=== PATIENT | male | born 1980 | race Caucasian/White ===

== ENCOUNTER 2018-03-11 16:03 | Emergency (ER) | payer SELFPAY ==
[2018-03-11 16:05] VITALS: BP 143/82; PULSE 89; RESP 27; TEMP 36.5; O2SAT 96; BMI 33.5
--- NOTE | 2018-03-11 16:14 | EKG12_ITS ---
Test Reason : HYPERGLYCEMIA Blood Pressure : / mmHG Vent. Rate : 085 BPM Atrial Rate : 085 BPM P-R Int : 178 ms QRS Dur : 082 ms QT Int : 340 ms P-R-T Axes : 033 011 034 degrees QTc Int : 404 ms Normal sinus rhythm Normal ECG Confirmed by MALINI RAMIREZ, RODNEY ([id number]), offline editor [place] MENENDEZ ([id number]) on 03/13/2018 1:17:15 PM Referred By: JOSE C Confirmed By:RODNEY NAYAK MD
[2018-03-11 16:15] LABS: Bedside Glucose 224 mg/dL (70-110)
[2018-03-11] MEDS: 0.9% Normal Saline 1,000 ML 1000 ML IV ×2 (16:21)
[2018-03-11 16:51] LABS: Absolute Lymphocyte Count 3.21 X10^3/ul (0.83-4.51); Absolute Neutrophil Count 4.1 X10^3/uL (2.0-7.7); Basophil# 0.05 X10^3/uL; Basophil% 0.6 % (0-1); Eosinophil# 0.13 X10^3/uL; Eosinophils% 1.6 % (0-5); Hematocrit 41.6 % (40-54); Lymphocyte # 3.21 X10^3/ul (4.0); Lymphocyte % 38.4 % (19-41); Mean Corp Hgb Conc 36.1 g/gl (32-36); Mean Corpuscular Hgb 30.5 pg (27.0-32.0); Mean Corpuscular Volume 84.6 fL (80-94); Mean Platelet Vol. 10.9 fl (6.2-12.0); Monocyte# 0.88 X10^3/uL; Monocyte% 10.5 % (0-10); Neutrophil # 4.09 X10^3/uL (2.7-7.7); Neutrophil % 48.8 % (47-70); POSITIVE COUNT NO; POSITIVE DIFFERENTIAL NO; POSITIVE MORPHOLOGY NO; Platelet Count 157 K/mm3 (150-450); Red Blood Count 4.92 M/mm3 (4.6-6.2); White Blood Count 8.4 K/mm3 (4.4-11.0)
[2018-03-11 16:56] LABS: AST(SGOT) 12 U/L (15-37); Alanine Aminotransfer ALT/SGPT 36 U/L (16-61); Albumin, Serum 3.6 g/dL (3.2-5.0); Alkaline Phosphatase 111 U/L (45-117); Anion Gap 9 (5-15); BUN 17 mg/dL (7-18); BUN/Creat Ratio 14.5 RATIO (10-20); Calcium,Total 8.4 mg/dL (8.5-10.1); Chloride 104 mmol/L (98-107); Creatinine, Serum 1.17 mg/dL (0.70-1.30); EST Glomerular Filtration Rate 74 mL/min (>60); Est Glom Filt Rate - Afr Amer 90 mL/min (>60); Estimated Creatinine Clearance 106.13 ml/min; Globulin 3.5 g/dL (2.2-4.2); Glucose 215 mg/dL (74-106); Protein, Total 7.1 g/dL (6.4-8.2); Sodium Level 137 mmol/L (136-145)
[2018-03-11 17:39] LABS: Bacteria 0 SEEN /hpf (None Seen); Mucous, Urine 0 SEEN /hpf (<or=2+); Red Blood Cells-Urine 0 SEEN /hpf (0-5); Squamous Epithelial Cells - UA 0 SEEN /hpf (0-5); White Blood Cells 0 SEEN /hpf (0-5)
[2018-03-11 17:43] LABS: Color, Urine Yellow (Yellow); Glucose, Dipstick 1000 mg/dl (Normal); Ketone-Dipstick 15 mg/dl (Negative); Leukocyte Esterase-Dipstick Negative /ul (Negative); Nitrite-Dipstick Negative (Negative); Occult Blood-Urine Negative /ul (Negative); Protein-Dipstick 15 mg/dl (Negative); Specific Gravity, Urine 1.025 (1.002-1.030); Urine Bilirubin Dipstick Negative (Negative); Urine Clarity Clear (Clear); Urine Urobilinogen Normal (Normal)
--- NOTE | 2018-03-11 18:13 | ED.DCSUM_ITS ---
- ER Visit Summary Date of Service: 03/11/18 Chief Complaint: High blood sugar History of Present Illness: The patient is a 37 M with presumed high blood sugar. The patient feels tired, weak, has a dry mouth, and has been sweating today. He had similar symptoms in the past with high blood sugar. He is taking metformin but he is not compliant with his insulin therapy. He has a history of type 2 diabetes. He has never been hospitalized for diabetes complications. Denies any other specific symptoms like fever, chest pain, shortness of breath, abdominal pain, nausea, vomiting, diarrhea, or urinary symptoms. Physical Examination: Afebrile and vital signs unremarkable except for heart rate of 27. The patient is sitting upright and appears in no acute distress. Alert and oriented. Calm and comfortable. Skin appears normal in color. No diaphoresis. No pallor. Heart regular rate and rhythm. Lungs clear bilaterally. Abdomen soft and nontender. Test Results: EKG shows sinus rhythm at a rate of 85. No sign of acute ischemia or infarction pattern. CBC normal. Glucose 215. Small ketones. Troponin normal. Hepatic panel and urinalysis unremarkable. Emergency Department Course and Treatment: Patient treated with IV fluids. I believe he is appropriate for outpatient follow-up. Stay hydrated. Use insulin and diabetes medications as directed. Return for any new or worsening issues. Treatment Plan: As above Disposition: Discharged Impression: 1. Hyperglycemia This note was generated with [employer] dictation software. It may contain incorrect words, spelling, and punctuation that were not noted in review of the chart prior to signing ED Disposition - Plan for ED Patient: Chief Complaint: Hyperglycemia Referrals: Chio Brown MD [Primary Care Provider] -
--- NOTE | 2018-03-11 18:13 | ED.DEP ---
ED Disposition - Plan for ED Patient: Chief Complaint: Hyperglycemia Instructions: ED Hyperglycemia Diabetic Referrals: Chio Brown MD [Primary Care Provider] -
[2018-03-11 18:34] VITALS: BP 118/78; PULSE 82; RESP 16; O2SAT 95
== END 2018-03-11 18:44 | disposition home or self-care (01) ==
PROVIDERS: Emergency Provider Emergency Medicine; Family Provider Internal Medicine; PCP Internal Medicine
DX: E11.65 Type 2 diabetes mellitus with hyperglycemia (principal); I10 Essential (primary) hypertension; Z79.4 Long term (current) use of insulin; Z79.899 Other long term (current) drug therapy; Z91.14 Patient's other noncompliance with medication regimen; Z72.0 Tobacco use
CPT/HCPCS: 80053; 81001; 82009; 82962; 84484; 85025; 93005; 96360; 99282; J7030

== ENCOUNTER 2018-05-20 12:30 | Inpatient (IN) | payer SELFPAY ==
[2018-05-20] VITALS (12 sets, daily range): BP systolic 140–212; BP diastolic 85–122; PULSE 86–109; RESP 14–26; TEMP 36.4–37; O2SAT 92–97; BMI 33.5; BMI 33.7
--- NOTE | 2018-05-20 13:05 | EKG12_ITS ---
Test Reason : SOB Blood Pressure : / mmHG Vent. Rate : 098 BPM Atrial Rate : 098 BPM P-R Int : 216 ms QRS Dur : 086 ms QT Int : 320 ms P-R-T Axes : 034 013 022 degrees QTc Int : 408 ms Sinus rhythm with 1st degree A-V block Nonspecific T wave abnormality Abnormal ECG Confirmed by MALINI RAMIREZ, RODNEY ([id number]), online editor TONO DARDEN ([id number]) on 05/23/2018 2:26:12 PM Referred By: William Frankel Confirmed By:RODNEY NAYAK MD
[2018-05-20] MEDS: Albuterol 2.5 MG/3 ML VIAL.NEB. INHALATION ×2 (13:28→13:57)
[2018-05-20] MEDS: Ipratropium/Albuterol Sulfate 3 ML AMPUL.NEB INHALATION (13:28)
--- NOTE | 2018-05-20 13:48 | RAD_ITS ---
STUDY: X-RAY CHEST REASON FOR EXAM: Male, 37 years old. Cough and wheezing. TECHNIQUE: PA and lateral views of the chest. COMPARISON: Comparison is made with prior study dated June 30, 2017. FINDINGS: EKG electrodes are seen. Mild degree of the increased linear markings at the lung bases most likely secondary to poor inspiratory effort. There is no demonstrated pleural abnormality. Normal size heart. Normal mediastinum and matthew. Normal visualized pulmonary arteries. Normal visualized aortic arch and descending thoracic aorta. There are diffuse degenerative changes of the visualized thoracic spine. Normal visualized ribs, clavicles, and shoulders. There is no demonstrated abnormality of the visualized soft tissue structures of the upper abdomen. RAD/Chest PA and Lateral IMPRESSION: Mild degree of increased markings at the lung bases most likely secondary to limited inspiration. Electronically Signed: Wilfrid Walden MD at 14:31 EST Tel [phone], Service support ,
[2018-05-20 13:56] LABS: Absolute Lymphocyte Count 2.91 X10^3/ul (0.83-4.51); Absolute Neutrophil Count 8.3 X10^3/uL (2.0-7.7); Basophil# 0.06 X10^3/uL; Basophil% 0.5 % (0-1); Eosinophil# 0.13 X10^3/uL; Hematocrit 43.8 % (40-54); Hemoglobin 15.5 g/dl (13.0-16.5); Lymphocyte # 2.91 X10^3/ul (4.0); Lymphocyte % 22.5 % (19-41); Mean Corp Hgb Conc 35.4 g/gl (32-36); Mean Corpuscular Hgb 29.8 pg (27.0-32.0); Mean Corpuscular Volume 84.1 fL (80-94); Mean Platelet Vol. 10.6 fl (6.2-12.0); Monocyte# 1.45 X10^3/uL; Monocyte% 11.2 % (0-10); Neutrophil # 8.31 X10^3/uL (2.7-7.7); Neutrophil % 64.1 % (47-70); Platelet Count 227 K/mm3 (150-450); RBC Distribution Width CV 11.9 % (11.6-14.6); RBC Distribution Width SD 36.5 fl (35.1-43.9); Red Blood Count 5.21 M/mm3 (4.6-6.2)
[2018-05-20 13:57] LABS: POSITIVE COUNT NO; POSITIVE DIFFERENTIAL NO; POSITIVE MORPHOLOGY NO
[2018-05-20 13:58] LABS: Anion Gap 12 (5-15); BUN 21 mg/dL (7-18); BUN/Creat Ratio 14.8 RATIO (10-20); Chloride 88 mmol/L (98-107); Creatinine, Serum 1.42 mg/dL (0.70-1.30); EST Glomerular Filtration Rate 59 mL/min (>60); Est Glom Filt Rate - Afr Amer 72 mL/min (>60); Estimated Creatinine Clearance 87.45 ml/min; Glucose 762 mg/dL (74-106); Potassium 4.3 mmol/L (3.5-5.1); Sodium Level 123 mmol/L (136-145)
--- NOTE | 2018-05-20 14:00 | ED.RN ---
GLUCOSE [id number] CALL[address] THE LAB. DR COOPER AWARE
[2018-05-20] MEDS: 0.9% Normal Saline 1,000 ML 1000 ML IV ×2 (14:40→16:03)
--- NOTE | 2018-05-20 16:03 | ED.DCSUM_ITS ---
- ER Visit Summary Date of Service: 05/20/18 Chief Complaint: Shortness of breath, cough, change in voice and elevated blood sugars History of Present Illness: The patient is a 37 M who presents because of URI symptoms that started 2 weeks ago. He was seen at urgent care and placed on Augmentin and prednisone. He states since he was placed on prednisone he had trouble controlling his blood sugar. Furthermore he reports polyuria, polydipsia, polyphagia and frequency. He does report thirst and orthostatic symptoms. He states the medication he was prescribed has had no effect. He is a smoker. His cough is nonproductive. He does complain of shortness of breath. He does complain of wheezing and he does not give history of asthma. He denies fever, chills or night sweats. He does complain of blurred vision. He does report palpitations otherwise cardiovascular negative. GI is positive for n ausea and vomiting for the past several days. is positive for frequency otherwise negative. He also complains of generalized weakness. Please read written note. Physical Examination: Vital signs noted and blood pressure is elevated at 212/122. Heart rate is 100. Head is atraumatic normocephalic. Pupils are equal round reactive. Extraocular muscles are intact. Funduscopic exam reveals no papilledema. TMs are pearly white with landmarks noted. Nares patent with no drainage. Posterior pharynx without erythema or exudate. Uvula is midline. There is no dysphonia or dysphasia. Trachea is midline. There is no stridor with auscultation of the neck. Heart is regular without murmur, gallop or rub. S1 and S2 are normal. Lungs are clear to auscultation with good movement of air bilaterally. Abdomen is soft and nontender. There is no guarding or peritoneal findings. There is no palpable pulsatile mass. There is no abdominal bruit. Mann sign is negative. Negative Rovsing sign. There is no evidence of inguinal or umbilical hernia. There is no asymmetry, swelling, discoloration, leg vein distention, palpable cords or tenderness along the distribution of the deep venous system. Patient is alert and oriented ?3. Motor is 5 over 5. Sensory is intact. DTRs are symmetric with no clonus or Babinski sign. Cranial 2 through 12 are intact. Cerebellar testing is normal. Test Results: EKG sinus rhythm rate of 98 with a first-degree AV block nonspecific ST-T wave changes. Two-view chest x-ray interpreted by me as negative. White count is 13,000, which may be secondary to the prednisone he is presently on. Electro panels marked for sodium 123 and chloride of 88 suspect this is pseudohyponatremia secondary to his hyperglycemia in part. Patient received 2 L of normal saline. He was placed on insulin drip after the fluid bolus. Patient blood pressure was not treated since most recent is 164/93. Emergency Department Course and Treatment: Evaluation for respiratory symptoms, electronic panel to evaluate blood sugar renal function. IV fluids for hyperglycemia and insulin drip. Treatment Plan: ICU Disposition: Admit ICU on insulin drip Impression: 1. Hyperglycemia with out ketosis or anion gap 2. Hyponatremia secondary to hyperglycemia, pseudohyponatremia 3. Leukocytosis secondary to prednisone 4. Viral upper restaurant infection with laryngitis 5. Hypertension without evidence of endorgan injury This note was generated with [employer] dictation software. It may contain incorrect words, spelling, and punctuation that were not noted in review of the chart prior to signing ED Disposition - Plan for ED Patient: Chief Complaint: Shortness of Breath Referrals: Chio Brown MD [Primary Care Provider] -
[2018-05-20 16:16] LABS: Bedside Glucose > 500 mg/dL (70-110)
[2018-05-20 16:35] LABS: Bedside Glucose > 500 mg/dL (70-110)
[2018-05-20 17:06] LABS: Bedside Glucose 458 mg/dL (70-110)
--- NOTE | 2018-05-20 17:36 | PCM.HP.STD ---
Problem List (1) Hyperosmolar non-ketotic state in patient with type 2 diabetes mellitus Status: Acute (2) Acute laryngitis Status: Acute (3) Acute epididymo-orchitis Status: Acute (4) GERD (gastroesophageal reflux disease) Status: Acute (5) Benign hypertension Status: Chronic (6) Chronic back pain Status: Chronic (7) Type II diabetes mellitus Status: Chronic (8) Morbid obesity Status: Chronic (9) Gall stone pancreatitis Status: Resolved History of Present Illness Date of Admission: 05/20/18 Chief Complaint: Hyperglycemia after being on prednisone given for laryngitis The patient is a 37 year old M with history of type 2 diabetes mellitus has acute laryngitis, hoarseness of voice, symptoms for 2 weeks but went to [facility] on last Saturday and was prescribed Augmentin and Medrol Dosepak but did not take Augmentin. Patient went to see PCP on last Saturday and then started taking most probably Medrol Dosepak from Saturday. Patient has symptoms of polyuria, polydipsia and polyphagia started feeling very thirsty and dry. Patient was also prescribed Lantus 15 units daily and sliding scale NovoLog but he could not take it because of cost. He also complained of left-sided testicular pain. Patient has mild fever with chills. [] In ED, there was no fever noted but patient was tachypneic. No hypoxia. BMP shows sodium 123, chloride 88, BUN 21, creatinine 1.42. Glucose 762. Accu-Cheks 458. Patient denies burning micturition but has increased frequency probably secondary to hyperosmolar hyperglycemia Past Medical History Past Medical History (Chronic Problems): Chronic Problems Benign hypertension (Chronic) Chronic back pain (Chronic) Type II diabetes mellitus (Chronic) Morbid obesity (Chronic) Allergies hydrocodone bitartrate [From Vicodin] Adverse Reaction (Verified 05/20/18 12:30) Nausea Home Medications: Ambulatory Orders Medication Instructions Recorded Citalopram [Celexa] 40 mg PO DAILY 03/11/18 Divalproex Sodium 2,000 mg PO QHS 03/11/18 Metformin HCl [Glucophage Xr] 500 mg PO DAILY 03/11/18 Olanzapine [Zyprexa] 10 mg PO DAILY 03/11/18 Prazosin HCl 2 mg PO DAILY 03/11/18 Lisinopril [Zestril] 10 mg PO DAILY 05/20/18 Surgical History: no surgical history Psychiatric History: No pertinent psych hx Smoking Status: Current every day smoker Tobacco Use: Cigarettes - *Family History Paternal History Items: Diabetes, Heart Disease Maternal History Items: Heart Disease Review of Systems Constitutional: Reports: Chills, Fever HEENT: Denies: Head Aches, Sinus Congestion, Sinus Drainage Cardiovascular: Denies: Chest Pain, Palpitations Respiratory: Reports: Cough, - - Hoarseness of voice. Denies: Shortness of breath at rest, Sputum production Gastrointestinal: Denies: Abdominal Pain, Nausea, Vomiting Genitourinary: Reports: Frequency, - - Testicular pain. Denies: Dysuria Musculoskeletal: Denies: Joint Pain, Joint Tenderness Skin: Denies: Rash, Wounds Neurological: Denies: Numbness, Tingling, Focal weakness Psychiatric: Denies: Anxiety, Depression, Homicidal Ideations, Suicidal Ideations Hematologic/ Lymphatic: Denies: Easy Bruising, Easy Bleeding VTE Information - Inpt Only VTE Present on Admission: No VTE Mechan Device Prophylaxis: SCD's VTE Pharm Prophylaxis ordered?: No Reason prophylaxis not ordered:: Procedure Not Indicated Patient Problems: Active and Suspected Problems Hyperosmolar non-ketotic state in patient with type 2 diabetes mellitus (Acute) Acute laryngitis (Acute) Acute epididymo-orchitis (Acute) - Physical Exam General: Alert, Oriented x3, Cooperative HEENT: Atraumatic, PERRLA, EOMI, Normocephalic Oral: - - No redness or exudate seen in hard palate or soft palate posterior pharyngeal wall. Base of tongue could not be seen. Neck: Supple, No JVD, Negative Carotid Bruits Lungs: Clear to auscultation, Normal air movement, No rhonchi, No wheeze, No rales Cardiovascular: Regular rate, Normal S1, Normal S2, No murmurs Abdomen: Bowel Sounds Present, Soft, Non Tender, Non-Distended, - - Left testes and epididymitis tender. Tenderness on palpation. No malrotation of testis. Extremities: No edema, Capillary Refill Less than 3 Seconds, Edema Skin: No rashes, No breakdown Musculoskeletal: No Tenderness to Palpation of Joints or Extremities Neurological: Cranial nerves II-XII grossly intact Psych/Mental Status: Normal Affect, Appropriate Vital Signs Temp Pulse Resp BP Pulse Ox 97.6 F L 92 18 140/94 H 96 05/20/18 17:12 05/20/18 17:12 05/20/18 17:16 05/20/18 17:12 05/20/18 17:12 Oxygen Delivery Method Room Air Weight: 276 lb 14.4 oz Body Mass Index (BMI) 33.7 Finger Stick Blood Glucose 509 Laboratory Tests Past 24 Hrs 05/20/18 05/20/18 13:30 13:30 WBC 13.0 H RBC 5.21 Hgb 15.5 Hct 43.8 MCV 84.1 MCH 29.8 MCHC 35.4 RDW 11.9 RDW Differential 36.5 Plt Count 227 MPV 10.6 Immature Gran % (Auto) 0.700 Neut % (Auto) 64.1 Lymph % (Auto) 22.5 [place] % (Auto) 11.2 H Eos % (Auto) 1.0 Baso % (Auto) 0.5 Absolute Neuts (auto) 8.3 H Absolute Lymphs (auto) 2.91 Total Counted Not Reportable Sodium 123 L Potassium 4.3 Chloride 88 L Carbon Dioxide 23.0 Anion Gap 12 BUN 21 H Creatinine 1.42 H Estim Creat Clear Calc 87.45 Est GFR (MDRD) Af Amer 72 Est GFR (MDRD) Non-Af 59 L BUN/Creatinine Ratio 14.8 Glucose 762 H* Calcium 9.0 POC Glucose 05/20/18 05/20/18 05/20/18 17:01 16:31 16:05 POC Glucose 458 H* > 500 H* > 500 H* Assessment/Plan All Active Problems Hyperosmolar non-ketotic state in patient with type 2 diabetes mellitus (Acute) Acute laryngitis (Acute) Acute epididymo-orchitis (Acute) GERD (gastroesophageal reflux disease) (Acute) Gall stone pancreatitis (Resolved) The patient is a 37 year old M with history of type 2 diabetes mellitus has acute laryngitis, hoarseness of voice, symptoms for 2 weeks but went to [facility] on last Saturday and was prescribed Augmentin and Medrol Dosepak but did not take Augmentin. Patient went to see PCP on last Saturday and then started taking most probably Medrol Dosepak from Saturday. Patient has symptoms of polyuria, polydipsia and polyphagia started feeling very thirsty and dry. Patient was also prescribed Lantus 15 units daily and sliding scale NovoLog but he could not take it because of cost. He also complained of left-sided testicular pain. Patient has mild fever with chills. [] In ED, there was no fever noted but patient was tachypneic. No hypoxia. BMP shows sodium 123, chloride 88, BUN 21, creatinine 1.42. Glucose 762. Accu-Cheks 458. Patient denies burning micturition but has increased frequency probably secondary to hyperosmolar hyperglycemia. 1. Hyperosmolar with type 2 diabetes mellitus secondary to Medrol Dosepak: The patient is being admitted on stepdown unit mainly due to insulin drip. Needs IV fluid normal saline as per protocol. Patient had 3 L of IV fluid normal saline. Continue insulin drip and hourly Accu-Cheks. Once Accu-Chek is between 100-200 mg/dL, Lantus 10 units subcutaneous and overlap insulin drip for about 3 hours then discontinue it. After that Accu-Chek before meals and at bedtime and cover with NovoLog sliding scale and Lantus 10 units twice daily 2. Diabetes mellitus type 2: She did have 3. Infectious condition: Acute laryngitis, left epididymoorchitis, acute: UA and urine culture ordered. Started on IV ceftriaxone. Azithromycin 250 mg 1 dose. Hold Celexa for today but may resume for tomorrow. QTc interval is 408 ms. 4. Acute kidney injury mainly due to dehydration/prerenal etiology: IV fluid normal saline. Monitor kidney function and BMP. Hold lisinopril. 5. Other chronic comorbid is include GERD and hypertension: Blood pressure is controlled. Continue home medications. DVT prophylaxis: Bilateral SCDs. Low risk. This note was generated with [employer] dictation software. Every effort was made to ensure accuracy, however computerized telegraphic instrument supervisor mistakes may persist. Code Visit Inpatient E&M: 64693 Init Hosp L3
--- NOTE | 2018-05-20 17:57 | HP.PCM_ITS ---
Problem List (1) Hyperosmolar non-ketotic state in patient with type 2 diabetes mellitus Status: Acute (2) Acute laryngitis Status: Acute (3) Acute epididymo-orchitis Status: Acute (4) GERD (gastroesophageal reflux disease) Status: Acute (5) Benign hypertension Status: Chronic (6) Chronic back pain Status: Chronic (7) Type II diabetes mellitus Status: Chronic (8) Morbid obesity Status: Chronic (9) Gall stone pancreatitis Status: Resolved History of Present Illness Date of Admission: 05/20/18 Chief Complaint: Hyperglycemia after being on prednisone given for laryngitis The patient is a 37 year old M with history of type 2 diabetes mellitus has acute laryngitis, hoarseness of voice, symptoms for 2 weeks but went to [facility] on last Saturday and was prescribed Augmentin and Medrol Dosepak but did not take Augmentin. Patient went to see PCP on last Saturday and then started taking most probably Medrol Dosepak from Saturday. Patient has symptoms of polyuria, polydipsia and polyphagia started feeling very thirsty and dry. Patient was also prescribed Lantus 15 units daily and sliding scale NovoLog but he could not take it because of cost. He also complained of left-sided testicular pain. Patient has mild fever with chills. [] In ED, there was no fever noted but patient was tachypneic. No hypoxia. BMP shows sodium 123, chloride 88, BUN 21, creatinine 1.42. Glucose 762. Accu- Cheks 458. Patient denies burning micturition but has increased frequency probably secondary to hyperosmolar hyperglycemia Past Medical History Past Medical History (Chronic Problems): Chronic Problems Benign hypertension (Chronic) Chronic back pain (Chronic) Type II diabetes mellitus (Chronic) Morbid obesity (Chronic) Allergies hydrocodone bitartrate [From Vicodin] Adverse Reaction (Verified 05/20/18 12:30) Nausea Home Medications: Ambulatory Orders Medication Instructions Recorded Citalopram [Celexa] 40 mg PO DAILY 03/11/18 Divalproex Sodium 2,000 mg PO QHS 03/11/18 Metformin HCl [Glucophage Xr] 500 mg PO DAILY 03/11/18 Olanzapine [Zyprexa] 10 mg PO DAILY 03/11/18 Prazosin HCl 2 mg PO DAILY 03/11/18 Lisinopril [Zestril] 10 mg PO DAILY 05/20/18 Surgical History: no surgical history Psychiatric History: No pertinent psych hx Smoking Status: Current every day smoker Tobacco Use: Cigarettes - *Family History Paternal History Items: Diabetes, Heart Disease Maternal History Items: Heart Disease Review of Systems Constitutional: Reports: Chills, Fever HEENT: Denies: Head Aches, Sinus Congestion, Sinus Drainage Cardiovascular: Denies: Chest Pain, Palpitations Respiratory: Reports: Cough, - - Hoarseness of voice. Denies: Shortness of breath at rest, Sputum production Gastrointestinal: Denies: Abdominal Pain, Nausea, Vomiting Genitourinary: Reports: Frequency, - - Testicular pain. Denies: Dysuria Musculoskeletal: Denies: Joint Pain, Joint Tenderness Skin: Denies: Rash, Wounds Neurological: Denies: Numbness, Tingling, Focal weakness Psychiatric: Denies: Anxiety, Depression, Homicidal Ideations, Suicidal Ideations Hematologic/ Lymphatic: Denies: Easy Bruising, Easy Bleeding VTE Information - Inpt Only VTE Present on Admission: No VTE Mechan Device Prophylaxis: SCD's VTE Pharm Prophylaxis ordered?: No Reason prophylaxis not ordered:: Procedure Not Indicated Patient Problems: Active and Suspected Problems Hyperosmolar non-ketotic state in patient with type 2 diabetes mellitus (Acute) Acute laryngitis (Acute) Acute epididymo-orchitis (Acute) - Physical Exam General: Alert, Oriented x3, Cooperative HEENT: Atraumatic, PERRLA, EOMI, Normocephalic Oral: - - No redness or exudate seen in hard palate or soft palate posterior pharyngeal wall. Base of tongue could not be seen. Neck: Supple, No JVD, Negative Carotid Bruits Lungs: Clear to auscultation, Normal air movement, No rhonchi, No wheeze, No rales Cardiovascular: Regular rate, Normal S1, Normal S2, No murmurs Abdomen: Bowel Sounds Present, Soft, Non Tender, Non-Distended, - - Left testes and epididymitis tender. Tenderness on palpation. No malrotation of testis. Extremities: No edema, Capillary Refill Less than 3 Seconds, Edema Skin: No rashes, No breakdown Musculoskeletal: No Tenderness to Palpation of Joints or Extremities Neurological: Cranial nerves II-XII grossly intact Psych/Mental Status: Normal Affect, Appropriate Vital Signs Temp Pulse Resp BP Pulse Ox 97.6 F L 92 18 140/94 H 96 05/20/18 17:12 05/20/18 17:12 05/20/18 17:16 05/20/18 17:12 05/20/18 17:12 Oxygen Delivery Method Room Air Weight: 276 lb 14.4 oz Body Mass Index (BMI) 33.7 Finger Stick Blood Glucose 509 Laboratory Tests Past 24 Hrs 05/20/18 05/20/18 13:30 13:30 WBC 13.0 H RBC 5.21 Hgb 15.5 Hct 43.8 MCV 84.1 MCH 29.8 MCHC 35.4 RDW 11.9 RDW Differential 36.5 Plt Count 227 MPV 10.6 Immature Gran % (Auto) 0.700 Neut % (Auto) 64.1 Lymph % (Auto) 22.5 [place] % (Auto) 11.2 H Eos % (Auto) 1.0 Baso % (Auto) 0.5 Absolute Neuts (auto) 8.3 H Absolute Lymphs (auto) 2.91 Total Counted Not Reportable Sodium 123 L Potassium 4.3 Chloride 88 L Carbon Dioxide 23.0 Anion Gap 12 BUN 21 H Creatinine 1.42 H Estim Creat Clear Calc 87.45 Est GFR (MDRD) Af Amer 72 Est GFR (MDRD) Non-Af 59 L BUN/Creatinine Ratio 14.8 Glucose 762 H* Calcium 9.0 POC Glucose 05/20/18 05/20/18 05/20/18 17:01 16:31 16:05 POC Glucose 458 H* > 500 H* > 500 H* Assessment/Plan All Active Problems Hyperosmolar non-ketotic state in patient with type 2 diabetes mellitus (Acute) Acute laryngitis (Acute) Acute epididymo-orchitis (Acute) GERD (gastroesophageal reflux disease) (Acute) Gall stone pancreatitis (Resolved) The patient is a 37 year old M with history of type 2 diabetes mellitus has acute laryngitis, hoarseness of voice, symptoms for 2 weeks but went to [facility] on last Saturday and was prescribed Augmentin and Medrol Dosepak but did not take Augmentin. Patient went to see PCP on last Saturday and then started taking most probably Medrol Dosepak from Saturday. Patient has symptoms of polyuria, polydipsia and polyphagia started feeling very thirsty and dry. Patient was also prescribed Lantus 15 units daily and sliding scale NovoLog but he could not take it because of cost. He also complained of left-sided testicular pain. Patient has mild fever with chills. [] In ED, there was no fever noted but patient was tachypneic. No hypoxia. BMP shows sodium 123, chloride 88, BUN 21, creatinine 1.42. Glucose 762. Accu- Cheks 458. Patient denies burning micturition but has increased frequency probably secondary to hyperosmolar hyperglycemia. 1. Hyperosmolar with type 2 diabetes mellitus secondary to Medrol Dosepak: The patient is being admitted on stepdown unit mainly due to insulin drip. Needs IV fluid normal saline as per protocol. Patient had 3 L of IV fluid normal saline . Continue insulin drip and hourly Accu-Cheks. Once Accu-Chek is between 100- 200 mg/dL, Lantus 10 units subcutaneous and overlap insulin drip for about 3 hours then discontinue it. After that Accu-Chek before meals and at bedtime and cover with NovoLog sliding scale and Lantus 10 units twice daily 2. Diabetes mellitus type 2: She did have 3. Infectious condition: Acute laryngitis, left epididymoorchitis, acute: UA and urine culture ordered. Started on IV ceftriaxone. Azithromycin 250 mg 1 dose. Hold Celexa for today but may resume for tomorrow. QTc interval is 408 ms. 4. Acute kidney injury mainly due to dehydration/prerenal etiology: IV fluid normal saline. Monitor kidney function and BMP. Hold lisinopril. 5. Other chronic comorbid is include GERD and hypertension: Blood pressure is controlled. Continue home medications. DVT prophylaxis: Bilateral SCDs. Low risk. This note was generated with [employer] dictation software. Every effort was made to ensure accuracy, however computerized genetic technologist mistakes may persist. Code Visit Inpatient E&M: 06986 Init Hosp L3
[2018-05-20 18:15] LABS: Bedside Glucose 336 mg/dL (70-110)
[2018-05-20] MEDS: 0.9% Normal Saline 1,000 ML 500 ML IV (18:18)
[2018-05-20 19:01] LABS: Bedside Glucose 334 mg/dL (70-110)
[2018-05-20] MEDS: Azithromycin 250 MG Tablet PO (19:50)
[2018-05-20] MEDS: Ceftriaxone 1 GM/50 ML BAG IV (19:59)
[2018-05-20] MEDS: 0.9% Normal Saline 1,000 ML 250 ML IV (20:53)
[2018-05-20 21:06] LABS: Bedside Glucose 322 mg/dL (70-110)
[2018-05-20 21:06] LABS: Bedside Glucose 283 mg/dL (70-110)
[2018-05-20 21:51] LABS: Chlamydia Trachomatis by PCR Negative (Negative); Neisserai gonorrhoeae by PCR Negative (Negative); Probe Check PASS; Sample Adequacy Control PASS; Specimen Processing Control PASS
[2018-05-20] MEDS: Divalproex (ER) 500 MG Tablet 2000 MG PO (21:56)
[2018-05-20 22:10] LABS: Bedside Glucose 177 mg/dL (70-110)
[2018-05-20 22:15] LABS: Anion Gap 7 (5-15); BUN 18 mg/dL (7-18); BUN/Creat Ratio 16.8 RATIO (10-20); Calcium,Total 7.9 mg/dL (8.5-10.1); Chloride 103 mmol/L (98-107); Creatinine, Serum 1.07 mg/dL (0.70-1.30); EST Glomerular Filtration Rate 82 mL/min (>60); Est Glom Filt Rate - Afr Amer 100 mL/min (>60); Estimated Creatinine Clearance 116.05 ml/min; Glucose 209 mg/dL (74-106); Potassium 3.4 mmol/L (3.5-5.1); Sodium Level 139 mmol/L (136-145)
[2018-05-20 22:36] LABS: Bacteria 0 SEEN /hpf (None Seen); Mucous, Urine 0 SEEN /hpf (<or=2+); Red Blood Cells-Urine 0 SEEN /hpf (0-5); Squamous Epithelial Cells - UA 0 SEEN /hpf (0-5); White Blood Cells 0 SEEN /hpf (0-5)
[2018-05-20 22:40] LABS: Color, Urine Yellow (Yellow); Glucose, Dipstick 1000 mg/dl (Normal); Ketone-Dipstick Negative (Negative); Leukocyte Esterase-Dipstick Negative /ul (Negative); Nitrite-Dipstick Negative (Negative); Occult Blood-Urine Negative /ul (Negative); Protein-Dipstick Negative (Negative); Specific Gravity, Urine 1.015 (1.002-1.030); Urine Bilirubin Dipstick Negative (Negative); Urine Clarity Clear (Clear); Urine Urobilinogen Normal (Normal)
[2018-05-21] VITALS (7 sets, daily range): BP systolic 133–156; BP diastolic 86–108; PULSE 72–84; RESP 14–16; TEMP 36.6–37; O2SAT 95–100
[2018-05-21 00:06] LABS: Bedside Glucose 102 mg/dL (70-110)
[2018-05-21 00:06] LABS: Bedside Glucose 188 mg/dL (70-110)
[2018-05-21 02:26] LABS: Bedside Glucose 126 mg/dL (70-110)
[2018-05-21 02:30] LABS: Bedside Glucose 212 mg/dL (70-110)
[2018-05-21 04:41] LABS: Bedside Glucose 231 mg/dL (70-110)
[2018-05-21] MEDS: BENZOCAINE/MENTHOL 1 LOZENGE 2 LOZENGE MUCOUS MEM (05:04)
[2018-05-21] MEDS: Acetaminophen 325 MG Tablet 650 MG PO (05:04)
[2018-05-21 06:50] LABS: Absolute Neutrophil Count 6.7 X10^3/uL (2.0-7.7); Basophil# 0.04 X10^3/uL; Basophil% 0.3 % (0-1); Eosinophil# 0.19 X10^3/uL; Eosinophils% 1.6 % (0-5); Hematocrit 42.1 % (40-54); Hemoglobin 14.9 g/dl (13.0-16.5); Lymphocyte % 28.6 % (19-41); Mean Corp Hgb Conc 35.4 g/gl (32-36); Mean Corpuscular Hgb 29.6 pg (27.0-32.0); Mean Corpuscular Volume 83.7 fL (80-94); Mean Platelet Vol. 10.5 fl (6.2-12.0); Monocyte# 1.22 X10^3/uL; Monocyte% 10.6 % (0-10); Neutrophil # 6.72 X10^3/uL (2.7-7.7); Neutrophil % 58.4 % (47-70); Platelet Count 200 K/mm3 (150-450); RBC Distribution Width CV 12.3 % (11.6-14.6); RBC Distribution Width SD 37.3 fl (35.1-43.9); Red Blood Count 5.03 M/mm3 (4.6-6.2); White Blood Count 11.5 K/mm3 (4.4-11.0)
[2018-05-21 06:55] LABS: Bedside Glucose 243 mg/dL (70-110)
[2018-05-21 06:59] LABS: POSITIVE COUNT NO; POSITIVE DIFFERENTIAL NO; POSITIVE MORPHOLOGY NO
[2018-05-21 07:00] LABS: AST(SGOT) 28 U/L (15-37); Alanine Aminotransfer ALT/SGPT 38 U/L (16-61); Alkaline Phosphatase 75 U/L (45-117); Anion Gap 7 (5-15); BUN 18 mg/dL (7-18); BUN/Creat Ratio 17.1 RATIO (10-20); Bilirubin, Direct 0.09 mg/dL (0.00-0.30); Calcium,Total 7.8 mg/dL (8.5-10.1); Chloride 103 mmol/L (98-107); Creatinine, Serum 1.05 mg/dL (0.70-1.30); EST Glomerular Filtration Rate 84 mL/min (>60); Est Glom Filt Rate - Afr Amer 102 mL/min (>60); Estimated Creatinine Clearance 118.26 ml/min; Globulin 3.5 g/dL (2.2-4.2); Glucose 250 mg/dL (74-106); Magnesium 1.9 mg/dL (1.6-2.6); Potassium 4.4 mmol/L (3.5-5.1); Protein, Total 6.5 g/dL (6.4-8.2); Sodium Level 138 mmol/L (136-145)
[2018-05-21 07:52] LABS: Hemoglobin A1c 11.6 % (4.2-6.3)
[2018-05-21] MEDS: Doxazosin 1 MG Tablet 1.5 MG PO (08:33)
[2018-05-21] MEDS: OLANZapine 10 MG Tablet PO (08:33)
[2018-05-21] MEDS: Insulin Lispro 100 UNIT/ML INSULN.PEN SC ×2 (08:34→12:05)
--- NOTE | 2018-05-21 09:41 | CASEMGMT ---
SW spoke with patient's as patient was sleeping. SW spoke with her about self pay status. SW asked how they are doing with getting medications. She said they are able to afford all of his medications except for his insulin. She said it is $700 at least. She is the only income in the home. She said she was using a website called [employer]. They offer prescriptions at discounted prices. Patient sees Dr Brown for his PCP. RYAN told her SW will give her an application for [facility]. She said she doesn't know how they are going to get his insulin when he leaves here. RYAN told her the hospital offers prescription assistance one time a year so we could possibly help. SW went back to the room, but she was not there and patient was sleeping. SW left the application on her computer and information on [employer]. Bianca IZAGUIRRE MSW
[2018-05-21 11:06] LABS: Bedside Glucose 278 mg/dL (70-110)
--- NOTE | 2018-05-21 12:16 | DCINST_ITS ---
- Discharge Diagnoses Current Active Problems: Current Active and Chronic Problems Hyperosmolar non-ketotic state in patient with type 2 diabetes mellitus (Acute) You will use the following diet at home:: Calorie/Carbohydrate Controlled (specify 1200, 1400, etc) Discharge Activity: Return to Normal Activity Call your doctor if you observe: Shortness of breath, Dizziness, Fainting spells, Chest pain Additional Instructions: You were recently prescribed Augmentin for upper respiratory infection. You will need to continue this prescription at discharge and complete entire course. Allergies/Adverse Reactions: Allergies hydrocodone bitartrate [From Vicodin] Adverse Reaction (Verified 05/20/18 12:30) Nausea Medications to take at Discharge Citalopram [Celexa] 40 mg PO DAILY 03/11/18 Metformin HCl [Glucophage Xr] 500 mg PO DAILY 03/11/18 Olanzapine [Zyprexa] 10 mg PO QHS 03/11/18 Prazosin HCl 2 mg PO QHS 03/11/18 Divalproex Sodium [Divalproex Sodium ER] 2,000 mg PO QHS 05/20/18 Lisinopril [Zestril] 10 mg PO DAILY 05/20/18 Insulin Glargine [Lantus SoloStar Pen] 10 units SC QHS #5 pen 05/21/18 Insulin Lispro [Humalog KwikPen] See Protocol SC ACHS #5 [email or web address] 05/21/18 The following prescriptions were given: Insulin Glargine [Lantus SoloStar Pen] 10 units SC QHS #5 pen Insulin Lispro [Humalog KwikPen] See Protocol SC ACHS #5 [email or web address] Primary Care Physician: Chio Brown MD [Primary Care Provider] - Please follow up with your Primary Care Physician in: 1 Week Test Results: Test results from this visit will be discussed in further detail at your follow- up appointment, if applicable. Proposed Discharge Date: 05/21/18
--- NOTE | 2018-05-21 12:30 | DS.PCM_ITS ---
<Lorie Hagan - Last Filed: 05/21/18 12:33> Discharge Date and Diagnosis Date of Admission: 05/20/18 Date of Discharge: 05/21/18 - Primary Discharge Diagnosis Active and Suspected Problems 1. Hyperglycemia due to uncontrolled type 2 diabetes mellitus without ketosis 2. Pseudohyponatremia secondary to hyperglycemia 3. Leukocytosis secondary to recent prednisone use 4. Acute kidney injury, resolved 5. Recent upper respiratory infection with laryngitis 6. Hypertension 7. Morbid obesity 8. GERD - Secondary Discharge Diagnosis Chronic Problems Benign hypertension (Chronic) Chronic back pain (Chronic) Type II diabetes mellitus (Chronic) Morbid obesity (Chronic) Hospital Course and Treatment Imaging Results: Diagnostic Data Chest X-Ray 05/20/18 13:48 IMPRESSION: Mild degree of increased markings at the lung bases most likely secondary to limited inspiration. Electronically Signed: Wilfrid Walden MD at 14:31 EST Tel [phone], Service support , Operations: None Procedures: None Summary of Care Provided: The patient is a 37 year old M who presents emergency room 05/20/2018 due to hyperglycemia following prednisone prescription for laryngitis. Patient reports he has been unable to take insulin for a long period of time due to unable to afford the medications. He is on metformin 500 mg daily only. Unable to tolerate higher dose due to diarrhea. Hemoglobin A1c 11.6%. Prescription assistance offered for patient. Patient will be discharged with 30-day supply of insulin regimen and further instructed to apply for application for prescription [facility]. Patient and agreeable. Patient's blood sugar under better control at discharge. He will be discharged with Lantus 10 mg nightly and Humalog sliding scale. Instructed to continue checking blood sugars before meals at bedtime. Follow-up with primary care physician. 1. Hyperglycemia due to uncontrolled type 2 diabetes mellitus without ketosis 2. Pseudohyponatremia secondary to hyperglycemia, resolved 3. Leukocytosis secondary to recent prednisone use 4. Acute kidney injury, resolved with IV fluids 5. Recent upper respiratory infection with laryngitis/hbeqvhauw-uokotjip-pamjtdhla in outpatient. Further prednisone discontinued. Patient was prescribed Augmentin which he will continue at discharge. Instructed to complete entire course. Follow-up with primary care physician. 6. Hypertension-stable, continue home lisinopril regimen. 7. Morbid obesity-encourage diet lifestyle modifications. 8. GERD General: Alert, Oriented x3, Cooperative HEENT: Atraumatic, PERRLA, EOMI, Normocephalic Oral: Moist mucosa Neck: Supple, No JVD, Negative Carotid Bruits Lungs: Clear to auscultation, Normal air movement Cardiovascular: Regular rate, Normal S1, Normal S2, No murmurs Abdomen: Bowel Sounds Present, Soft, Non Tender, Non-Distended Extremities: No edema, Capillary Refill Less than 3 Seconds, Edema Skin: No rashes, No breakdown Musculoskeletal: No Tenderness to Palpation of Joints or Extremities Neurological: Cranial nerves II-XII grossly intact Psych/Mental Status: Normal Affect, Appropriate Patient seen and examined prior to discharge. Physical assessment as noted above. Patient is stable for discharge home with the follow-up recommendations as noted above. This patient was seen by JAGJIT Owen under the supervision of Dr. Smith. - Physical Exam Vital Signs Temp Pulse Resp BP Pulse Ox 98.6 F 76 16 133/86 H 96 05/21/18 10:40 05/21/18 11:04 05/21/18 10:40 05/21/18 10:40 05/21/18 10:40 Oxygen Delivery Method Room Air Weight: 276 lb 14.409 oz Body Mass Index (BMI) 33.7 Finger Stick Blood Glucose 102 Orthostatic Vital Signs Start: 05/21/18 04:26 Freq: q24h Status: Active Protocol: Activity Type Activity Date Activity User E-Sign Co-Sign Detail Recorded Client Recorded Date Recorded By Document 05/21/18 04:26 [facility] [id number] 05/21/18 04:33 [facility] 05/21/18 04:26 Orthostatic Vitals Standing -Blood Pressure (90/60-120/80) 147/96 H -Extremity Use Right Arm -Pulse Rate (60-100) 83 Sitting -Blood Pressure (90/60-120/80) 151/108 H -Extremity Use Right Arm -Pulse Rate (60-100) 79 Lying -Blood Pressure (90/60-120/80) 156/99 H -Extremity Use Right Arm -Pulse Rate (60-100) 74 Intake and Output for Last 24 Hours 05/19/18 05/20/18 05/21/18 23:59 23:59 23:59 Intake Total 2913.4 / 2913.4 240 / 240 Balance 2913.4 / 2913.4 240 / 240 Laboratory Tests Past 24 Hrs 05/20/18 05/20/18 05/20/18 13:30 13:30 18:30 WBC 13.0 H RBC 5.21 Hgb 15.5 Hct 43.8 MCV 84.1 MCH 29.8 MCHC 35.4 RDW 11.9 RDW Differential 36.5 Plt Count 227 MPV 10.6 Immature Gran % (Auto) 0.700 Neut % (Auto) 64.1 Lymph % (Auto) 22.5 Cavalier % (Auto) 11.2 H Eos % (Auto) 1.0 Baso % (Auto) 0.5 Absolute Neuts (auto) 8.3 H Absolute Lymphs (auto) 2.91 Total Counted Not Reportable Sodium 123 L Potassium 4.3 Chloride 88 L Carbon Dioxide 23.0 Anion Gap 12 BUN 21 H Creatinine 1.42 H Estim Creat Clear Calc 87.45 Est GFR (MDRD) Af Amer 72 Est GFR (MDRD) Non-Af 59 L BUN/Creatinine Ratio 14.8 Glucose 762 H* Hemoglobin A1c Calcium 9.0 Magnesium Total Bilirubin Direct Bilirubin AST ALT Alkaline Phosphatase Total Protein Albumin Globulin Urine Color Yellow Urine Clarity Clear Urine pH 6.0 Ur Specific [place] 1.015 Urine Protein Negative Urine Glucose (UA) 1000 H Urine Ketones Negative Urine Occult Blood Negative Urine Nitrite Negative Urine Bilirubin Negative Urine Urobilinogen Normal Ur Leukocyte Esterase Negative Urine RBC 0 SEEN Urine WBC 0 SEEN Ur Squamous Epith Cells 0 SEEN Urine Bacteria 0 SEEN Urine Mucus 0 SEEN Acetone Level Chlam trachomat DNA PCR N.gonorrhoeae DNA (PCR) 05/20/18 05/20/18 05/20/18 18:30 21:15 21:15 WBC RBC Hgb Hct MCV MCH MCHC RDW RDW Differential Plt Count MPV Immature Gran % (Auto) Neut % (Auto) Lymph % (Auto) [place] % (Auto) Eos % (Auto) Baso % (Auto) Absolute Neuts (auto) Absolute Lymphs (auto) Total Counted Sodium 139 Potassium 3.4 L Chloride 103 Carbon Dioxide 29.0 Anion Gap 7 BUN 18 Creatinine 1.07 Estim Creat Clear Calc 116.05 Est GFR (MDRD) Af Amer 100 Est GFR (MDRD) Non-Af 82 BUN/Creatinine Ratio 16.8 Glucose 209 H Hemoglobin A1c Calcium 7.9 L Magnesium Total Bilirubin Direct Bilirubin AST ALT Alkaline Phosphatase Total Protein Albumin Globulin Urine Color Urine Clarity Urine pH Ur Specific [place] Urine Protein Urine Glucose (UA) Urine Ketones Urine Occult Blood Urine Nitrite Urine Bilirubin Urine Urobilinogen Ur Leukocyte Esterase Urine RBC Urine WBC Ur Squamous Epith Cells Urine Bacteria Urine Mucus Acetone Level NEGATIVE Chlam trachomat DNA PCR Negative N.gonorrhoeae DNA (PCR) Negative 05/21/18 05/21/18 05/21/18 06:20 06:20 06:20 WBC 11.5 H RBC 5.03 Hgb 14.9 Hct 42.1 MCV 83.7 MCH 29.6 MCHC 35.4 RDW 12.3 RDW Differential 37.3 Plt Count 200 MPV 10.5 Immature Gran % (Auto) 0.500 Neut % (Auto) 58.4 Lymph % (Auto) 28.6 Cavalier % (Auto) 10.6 H Eos % (Auto) 1.6 Baso % (Auto) 0.3 Absolute Neuts (auto) 6.7 Absolute Lymphs (auto) 3.30 Total Counted Not Reportable Sodium 138 Potassium 4.4 Chloride 103 Carbon Dioxide 28.0 Anion Gap 7 BUN 18 Creatinine 1.05 Estim Creat Clear Calc 118.26 Est GFR (MDRD) Af Amer 102 Est GFR (MDRD) Non-Af 84 BUN/Creatinine Ratio 17.1 Glucose 250 H Hemoglobin A1c 11.6 H Calcium 7.8 L Magnesium 1.9 Total Bilirubin 0.40 Direct Bilirubin 0.09 AST 28 ALT 38 Alkaline Phosphatase 75 Total Protein 6.5 Albumin 3.0 L Globulin 3.5 Urine Color Urine Clarity Urine pH Ur Specific [place] Urine Protein Urine Glucose (UA) Urine Ketones Urine Occult Blood Urine Nitrite Urine Bilirubin Urine Urobilinogen Ur Leukocyte Esterase Urine RBC Urine WBC Ur Squamous Epith Cells Urine Bacteria Urine Mucus Acetone Level Chlam trachomat DNA PCR N.gonorrhoeae DNA (PCR) POC Glucose 05/21/18 05/21/18 05/21/18 06:49 04:34 02:27 POC Glucose 243 H 231 H 212 H 05/21/18 05/20/18 05/20/18 00:23 23:57 23:09 POC Glucose 126 H 102 188 H 05/20/18 05/20/18 05/20/18 21:59 20:59 20:04 POC Glucose 177 H 283 H 322 H 05/20/18 05/20/18 05/20/18 18:57 18:05 17:01 POC Glucose 334 H 336 H 458 H* 05/20/18 05/20/18 16:31 16:05 POC Glucose > 500 H* > 500 H* Discharge Diet: 1800 Calorie Control Diet, Carb Control Diet Discharge Activity: Return to Normal Activity Call your doctor if you observe: Shortness of breath, Dizziness, Fainting spells, Chest pain Home Medications: Medications to take at Discharge Citalopram [Celexa] 40 mg PO DAILY 03/11/18 Metformin HCl [Glucophage Xr] 500 mg PO DAILY 03/11/18 Olanzapine [Zyprexa] 10 mg PO QHS 03/11/18 Prazosin HCl 2 mg PO QHS 03/11/18 Divalproex Sodium [Divalproex Sodium ER] 2,000 mg PO QHS 05/20/18 Lisinopril [Zestril] 10 mg PO DAILY 05/20/18 Insulin Glargine [Lantus SoloStar Pen] 10 units SC QHS #5 pen 05/21/18 Insulin Lispro [Humalog KwikPen] See Protocol SC ACHS #5 [email or web address] 05/21/18 Following Prescrptions Were Given to Patient: Insulin Glargine [Lantus SoloStar Pen] 10 units SC QHS #5 pen Insulin Lispro [Humalog KwikPen] See Protocol SC ACHS #5 [email or web address] Primary Care Physician: Chio Brown MD [Primary Care Provider] - Please follow up with your Primary Care Physician in: 1 Week Disposition: Home Minutes spent on discharge:: 35 Patient Condition:: Stable Medical Necessity - Tobacco Use Smoking Status: Current every day smoker Tobacco Use: Cigarettes Meaningful Use Info Meaningful Use Diagnoses (Choose all that apply): None applicable <Jj Smith E - Last Filed: 05/21/18 14:58> Discharge Date and Diagnosis - Secondary Discharge Diagnosis Chronic Problems Benign hypertension (Chronic) Chronic back pain (Chronic) Type II diabetes mellitus (Chronic) Morbid obesity (Chronic) Hospital Course and Treatment Summary of Care Provided: Hospitalist note: Discharge summary above as well as physical examination reviewed and I agree and concur with the above discharge and treatment plan. Patient was admitted because of elevated blood sugar after he was started on prednisone for an upper respiratory tract infection. Patient does have history of type 2 diabetes mellitus and he states that he has not been able to take his insulin for a long period of time because he is not able to afford the medications. He was found to have blood sugar of 762 mg/dL on admission. There was no evidence of acute diabetic ketoacidosis. His hemoglobin A1c was 11.6%. Patient was admitted to PCU, started on IV insulin drip and shortly after, his blood sugar came down to 200s. IV since it was discontinued and he was started on his home doses of Lantus and Humalog sliding scale. He did have hyponatremia which is attributed to pseudohyponatremia secondary to hyperglycemia. On admission, he was found to have acute kidney injury attributed to severe hyperglycemia, admission creatinine was 1.42 and with IV fluids, creatinine came down to 1.05. Chest x- ray showed no acute findings. On the day of discharge, patient felt better. His vital signs were stable and he was afebrile. We will able to secure Lantus insulin as well as Humalog KwikPen before patient discharged home. Patient was discharged home in a stable medical condition, discharged on Lantus 10 units nightly and Humalog sliding scale, instructions given to check his blood sugar before meals and at bedtime, recommended to continue Augmentin that was prescribed before admission, recommended formal PCP in 1 week and recommended to be refitted to endocrinology as outpatient. - Physical Exam General: Alert, Oriented x3, Cooperative, No apparent distress HEENT: Atraumatic, PERRLA, EOMI, Normocephalic Oral: Moist Mucosa, No Gingival or Mucosal Lesions/ Ulcerations Neck: Supple, No JVD, Negative Carotid Bruits, Trachea Midline, Thyroid Normal Size and Texture Lungs: Clear to auscultation, No rhonchi, No wheeze, No rales, Diminished Cardiovascular: Regular rate, Regular Rhythm, Normal S1, Normal S2, No murmurs, PMI Normal Abdomen: Bowel Sounds Present, Soft, Non Tender, Non-Distended, No Hepato- splenomegaly Extremities: No clubbing, No cyanosis, No edema Skin: No rashes, No breakdown Lymphatic: No Cervical, Supraclavicular, or Inguinal Adenopathy Neurological: Cranial nerves II-XII grossly intact, Motor Exam 5/5 strength throughout Psych/Mental Status: Normal Affect, Appropriate, Alert and oriented to time, place, person, mood and affect Vital Signs are stable. - Physical Exam Vital Signs Temp Pulse Resp BP Pulse Ox 98.6 F 76 16 133/86 H 96 05/21/18 10:40 05/21/18 11:04 05/21/18 10:40 05/21/18 10:40 05/21/18 10:40 Oxygen Delivery Method Room Air Weight: 276 lb 14.409 oz Body Mass Index (BMI) 33.7 Finger Stick Blood Glucose 102 Intake and Output for Last 24 Hours 05/19/18 05/20/18 05/21/18 23:59 23:59 23:59 Intake Total 2913.4 / 2913.4 680 / 680 Balance 2913.4 / 2913.4 680 / 680 Laboratory Tests Past 24 Hrs 05/20/18 05/20/18 05/20/18 18:30 18:30 21:15 WBC RBC Hgb Hct MCV MCH MCHC RDW RDW Differential Plt Count MPV Immature Gran % (Auto) Neut % (Auto) Lymph % (Auto) [place] % (Auto) Eos % (Auto) Baso % (Auto) Absolute Neuts (auto) Absolute Lymphs (auto) Total Counted Sodium 139 Potassium 3.4 L Chloride 103 Carbon Dioxide 29.0 Anion Gap 7 BUN 18 Creatinine 1.07 Estim Creat Clear Calc 116.05 Est GFR (MDRD) Af Amer 100 Est GFR (MDRD) Non-Af 82 BUN/Creatinine Ratio 16.8 Glucose 209 H Hemoglobin A1c Calcium 7.9 L Magnesium Total Bilirubin Direct Bilirubin AST ALT Alkaline Phosphatase Total Protein Albumin Globulin Urine Color Yellow Urine Clarity Clear Urine pH 6.0 Ur Specific [place] 1.015 Urine Protein Negative Urine Glucose (UA) 1000 H Urine Ketones Negative Urine Occult Blood Negative Urine Nitrite Negative Urine Bilirubin Negative Urine Urobilinogen Normal Ur Leukocyte Esterase Negative Urine RBC 0 SEEN Urine WBC 0 SEEN Ur Squamous Epith Cells 0 SEEN Urine Bacteria 0 SEEN Urine Mucus 0 SEEN Acetone Level Chlam trachomat DNA PCR Negative N.gonorrhoeae DNA (PCR) Negative 05/20/18 05/21/18 05/21/18 21:15 06:20 06:20 WBC 11.5 H RBC 5.03 Hgb 14.9 Hct 42.1 MCV 83.7 MCH 29.6 MCHC 35.4 RDW 12.3 RDW Differential 37.3 Plt Count 200 MPV 10.5 Immature Gran % (Auto) 0.500 Neut % (Auto) 58.4 Lymph % (Auto) 28.6 [place] % (Auto) 10.6 H Eos % (Auto) 1.6 Baso % (Auto) 0.3 Absolute Neuts (auto) 6.7 Absolute Lymphs (auto) 3.30 Total Counted Not Reportable Sodium Potassium Chloride Carbon Dioxide Anion Gap BUN Creatinine Estim Creat Clear Calc Est GFR (MDRD) Af Amer Est GFR (MDRD) Non-Af BUN/Creatinine Ratio Glucose Hemoglobin A1c 11.6 H Calcium Magnesium Total Bilirubin Direct Bilirubin AST ALT Alkaline Phosphatase Total Protein Albumin Globulin Urine Color Urine Clarity Urine pH Ur Specific [place] Urine Protein Urine Glucose (UA) Urine Ketones Urine Occult Blood Urine Nitrite Urine Bilirubin Urine Urobilinogen Ur Leukocyte Esterase Urine RBC Urine WBC Ur Squamous Epith Cells Urine Bacteria Urine Mucus Acetone Level NEGATIVE Chlam trachomat DNA PCR N.gonorrhoeae DNA (PCR) 05/21/18 06:20 WBC RBC Hgb Hct MCV MCH MCHC RDW RDW Differential Plt Count MPV Immature Gran % (Auto) Neut % (Auto) Lymph % (Auto) [place] % (Auto) Eos % (Auto) Baso % (Auto) Absolute Neuts (auto) Absolute Lymphs (auto) Total Counted Sodium 138 Potassium 4.4 Chloride 103 Carbon Dioxide 28.0 Anion Gap 7 BUN 18 Creatinine 1.05 Estim Creat Clear Calc 118.26 Est GFR (MDRD) Af Amer 102 Est GFR (MDRD) Non-Af 84 BUN/Creatinine Ratio 17.1 Glucose 250 H Hemoglobin A1c Calcium 7.8 L Magnesium 1.9 Total Bilirubin 0.40 Direct Bilirubin 0.09 AST 28 ALT 38 Alkaline Phosphatase 75 Total Protein 6.5 Albumin 3.0 L Globulin 3.5 Urine Color Urine Clarity Urine pH Ur Specific [place] Urine Protein Urine Glucose (UA) Urine Ketones Urine Occult Blood Urine Nitrite Urine Bilirubin Urine Urobilinogen Ur Leukocyte Esterase Urine RBC Urine WBC Ur Squamous Epith Cells Urine Bacteria Urine Mucus Acetone Level Chlam trachomat DNA PCR N.gonorrhoeae DNA (PCR) POC Glucose 05/21/18 05/21/18 05/21/18 06:49 04:34 02:27 POC Glucose 243 H 231 H 212 H 11/28/18 11/27/18 11/27/18 00:23 23:57 23:09 POC Glucose 126 H 102 188 H 05/20/18 05/20/18 05/20/18 21:59 20:59 20:04 POC Glucose 177 H 283 H 322 H 05/20/18 05/20/18 05/20/18 18:57 18:05 17:01 POC Glucose 334 H 336 H 458 H* 05/20/18 05/20/18 16:31 16:05 POC Glucose > 500 H* > 500 H* Disposition: Home Minutes spent on discharge:: 26 Meaningful Use Info Meaningful Use Diagnoses (Choose all that apply): None applicable Code Visit OBSV E&M: 97963 Observation care discharge
--- NOTE | 2018-05-21 13:22 | CASEMGMT ---
RYAN utilized [facility] Indigent patient medication program. RYAN spoke with patient and his and let them know this information. Patient's was already working on the [facility] [facility] application. Plan: d/c home. RYAN used [facility] indigent patient medication program. Bianca IZAGUIRRE MSW
--- NOTE | 2018-05-22 17:26 | CASEMGMT ---
MARIEL NINO Discharge Follow-up Phone Call: EARNESTINE: Evelyn Strata: 3 Call Date: 05/22/18 Discharge Date: 05/21/18 Time of Call: [id number] Duration: 0 ? Admitting Diagnosis: DM type 2 with hyperglycemia w/ketosis This RN MICA attempted to contact pt via telephone for discharge follow-up. Received a [employer] message stating the phone number was no longer in service. Libertad Burgess RN
--- OUTSIDE RECORDS SUMMARY | 2018-07-02 07:07 | XMS RPT_ITS ---
:1980 Author Organization OH[facility] Care Team Providers Name Role Phone DONNA DEGROOT MD Attending Unavailable BUCK LAIRD, DR. MARTINEZ Primary Care Unavailable OLDER, HOPE (MAIL TELLER) Attending Unavailable OLDER, HOPE (MAIL TELLER) Attending Unavailable TALAMPAS, MICHELLE D Referring Unavailable TALAMPAS, MICHELLE D Referring Unavailable CERVANTESRAY (HEAD OF DATA) Attending Unavailable CERVANTES, RAY (HEAD OF DATA) Referring Unavailable TALAMPAS, MICHELLE D Referring Unavailable OLDER, HOPE (MAIL TELLER) Attending Unavailable CESILIA OTERO (MAIL TELLER) Attending Unavailable CERVANTES, RAY (HEAD OF DATA) Attending Unavailable Talampas, Michelle Primary Care Unavailable Robbin Hdz Attending Unavailable Talampas, Michelle Primary Care Unavailable Kevin Burns Attending Unavailable Talampas, Michelle Primary Care Unavailable Kevin Crawford Attending Unavailable Talampas, Michelle Primary Care Unavailable Jostin, William Admitting Unavailable Jostin, William Referring Unavailable Ashelfah, Ghasem Attending Unavailable Jostin, William Admitting Unavailable Jostin, William Attending Unavailable Jostin, William Referring Unavailable Talampas, Michelle Primary Care Unavailable Jostin, William Consulting Unavailable Jostin, William Admitting Unavailable Jostin, William Referring Unavailable Talampas, Michelle Primary Care Unavailable Ashelfah, Ghasem Consulting Unavailable Ashelfah, Ghasem Attending Unavailable PROBLEMS PROBLEMS DATE TYPE CONDITION / CODE ATTENDING STATUS SOURCE 01/16/2018 Active Adverse effect of Active [place] unspecified drugs, [facility] medicaments and [place] biological Repository substances, subsequent encounter / T50.905D(ICD-10) 03/12/2017 Active Mixed hyperlipidemia NA Active [place] / E78.2(ICD-10) Clinic Main [place] Repository 02/23/2017 Active Essential (primary) NA Active [place] hypertension / [facility] I10(ICD-10) [place] Repository 09/11/2017 Active Type 2 diabetes NA Active [place] mellitus with [facility] hyperglycemia / [place] E11.65(ICD-10) Repository 09/11/2017 Active jail (current) [facility] [place] use of insulin / [facility] Z79.4(ICD-10) [place] Repository 09/11/2017 Active Other alf NA Active [place] (current) drug [facility] therapy / [place] Z79.899(ICD-10) Repository 06/25/2017 Unknown J40 - Bronchitis, Robbin Hdz Active [facility] not specified as Community acute or chronic / Hospital J40(ICD-10) Repository PROCEDURES PROCEDURES No Procedure Records FoundRESULTS RESULTS 12 LEAD ELECTROCARDIOGRAM Observed: 05/23/2018 Status: F Source: [place] 2:26 PM [facility] REPOSITORY [facility] Cardiovascular Services [address] [place] [address] 12 Lead EKG 05/20/18 1324 MR#: [id number] Acct: [id number] Name: DENVER HOLLINGSWORTH Rep #: [id number] : 1980 37 From: Aron Santos MD Attending Dr: Jj mSith Status: DIS IN Ordering Dr: Fadi Wong MD Date: 05/20/18 Location: [facility] Sex: M C Admitted: 05/20/18 Test Reason : SOB Blood Pressure : / mmHG Vent. Rate : 098 BPM Atrial Rate : 098 BPM P-R Int : 216 ms QRS Dur : 086 ms QT Int : 320 ms P-R-T Axes : 034 013 022 degrees QTc Int : 408 ms Sinus rhythm with 1st degree A-V block Nonspecific T wave abnormality Abnormal ECG Confirmed by MALINI RAMIREZ, ARON ([id number]), assistant editor TONO DARDEN ([id number]) on 05/23/2018 2:26:12 PM Referred By: William Frankel Confirmed By:ARON SANTOS MD 05/23/18 1426 Date Aron Santos MD CC: Jj Smith; Michelle Brown MD; William Frankel MD; Fadi Wong MD Signed PROGRESS Observed: 05/22/2018 Status: COMPLETED Source: [place] 3:33 PM [facility] REPOSITORY HNO ID: [id number] Author: Dayana Estrella LPN Service: (none) Author Type: (none) Type: Progress Notes Filed: 06/03/2018 10:26 AM Note Text: Called pt with no answer and unable to leave a message. PROGRESS Observed: 05/22/2018 Status: COMPLETED Source: [place] 9:44 AM [facility] REPOSITORY HNO ID: [id number] Author: Dayana Estrella LPN Service: (none) Author Type: (none) Type: Progress Notes Filed: 06/03/2018 10:26 AM Note Text: Called pt to complete TCM note. No answer at cell number. Pt does have a 1 week form with with STOCK ROOM MANAGER 05/27/18 already arranged. Can do TCM if he shows. NATHALIE Observed: 05/22/2018 Status: COMPLETED Source: [place] 12:00 AM [facility] REPOSITORY Patient Outreach (INTMWS) DENVER HOLLINGSWORTH ([id number]) 1980 M Date Time Provider Department 05/22/18 MICHELLE BROWN INTMWS During your visit today, we recorded the following information about you: Dayana Estrella LPN 06/03/2018 10:26 AM Signed Called pt to complete TCM note. No answer at cell number. Pt does have a 1 week form with with STOCK ROOM MANAGER 05/27/18 already arranged. Can do TCM if he shows. Dayana Estrella LPN 06/03/2018 10:26 AM Signed Called pt with no answer and unable to leave a message. Allergies As of Date: 05/22/2018 Noted Allergy Reaction METFORMIN 03/25/2012 6 - Diarrhea Comments: even on XR 500 mg once daily VICODIN (HYDROCODONE-ACETAMINOPHE*02/24/2009 8 - GI Upset Date Reviewed: 05/20/2018 Reviewed by: Melina Garcia LPN - Fully Assessed Reason for Visit: Transition Of Care [4074] Prescriptions as of 05/22/2018 Sig: ALBUTEROL SULFATE HFA 90 MCG/* Two puffs every 4 hours as ne* AMOXICILLIN 875 MG-POTASSIUM * Take 1 tablet by mouth twice * BLOOD SUGAR DIAGNOSTIC STRIPS Choose brand covered by insur* BLOOD-GLUCOSE METER KIT Glucose Meter of Choice (what* CITALOPRAM 40 MG TABLET Take 1 tablet by mouth every * DEXTROMETHORPHAN POLISTIREX E* Take 10 mL by mouth twice sh[place]oh* DIVALPROEX ER 500 MG TABLET,E* Take 1 tab daily for 3 days, * INSULIN GLARGINE (U-100) 100 * Inject 25 Units subcutaneousl* PEN NEEDLE, DIABETIC 32 GAUGE* Use one needle for each dose.* INSULIN SYRINGE U-100 WITH NE* USE ONE SYRINGE FOR EACH INSU* LANCETS Choose lancets covered by ins* LISINOPRIL 10 MG TABLET Take 1 tablet by mouth once d* METFORMIN 500 MG TABLET Take 2 tablets by mouth twice* NOVOLOG FLEXPEN U-100 INSULIN* Inject 10 Units subcutaneousl* OLANZAPINE 10 MG TABLET Take 1 tablet by mouth daily * PRAZOSIN 2 MG CAPSULE Take 1 capsule by mouth daily* Problem List As Of Date 05/22/2018 Noted Resolved 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 Diabetes mellitus type 2, uncontrolled, without*INVALID FOR* More... Essential hypertension [I10] INVALID FOR* SLEEP APNEA NOS [G47.30] INVALID FOR* More... 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] INVALID FOR* Cervicalgia [M54.2] INVALID FOR* Anxiety and depression [F41.9, F32.9] INVALID FOR* Mixed hyperlipidemia [E78.2] INVALID FOR* Encounter Status:Closed by DAYANA ESTRELLA LPN on 06/03/18 DISCHARGE SUMMARY Observed: 05/21/2018 Status: F Source: [place] 2:58 PM [facility] REPOSITORY [facility] Medical Records Department [address] [place] [id number] Discharge Summary 05/21/18 1220 MR#: [id number] Acct: [id number] Name: DENVER HOLLINGSWORTH Rep #: [id number] : 1980 37 From: Lorie Hagan STOCK ROOM MANAGERMeliC PCP: Michelle Brown MD Status: DIS IN Y Location: [id number] <Lorie Hagan - Last Filed: 05/21/18 12:33> Discharge Date and Diagnosis Date of Admission: 05/20/18 Date of Discharge: 05/21/18 - Primary Discharge Diagnosis Active and Suspected Problems 1. Hyperglycemia due to uncontrolled type 2 diabetes mellitus without ketosis 2. Pseudohyponatremia secondary to hyperglycemia 3. Leukocytosis secondary to recent prednisone use 4. Acute kidney injury, resolved 5. Recent upper respiratory infection with laryngitis 6. Hypertension 7. Morbid obesity 8. GERD - Secondary Discharge Diagnosis Chronic Problems Benign hypertension (Chronic) Chronic back pain (Chronic) Type II diabetes mellitus (Chronic) Morbid obesity (Chronic) Hospital Course and Treatment Imaging Results: Diagnostic Data Chest X-Ray 05/20/18 13:48 IMPRESSION: Mild degree of increased markings at the lung bases most likely secondary to limited inspiration. Electronically Signed: Wilfrid Walden MD at 14:31 EST Tel [phone], Service support , Operations: None Procedures: None Summary of Care Provided: The patient is a 37 year old M who presents emergency room 05/20/2018 due to hyperglycemia following prednisone prescription for laryngitis. Patient reports he has been unable to take insulin for a long period of time due to unable to afford the medications. He is on metformin 500 mg daily only. Unable to tolerate higher dose due to diarrhea. Hemoglobin A1c 11.6%. Prescription assistance offered for patient. Patient will be discharged with 30-day supply of insulin regimen and further instructed to apply for application for prescription hope. Patient and agreeable. Patient's blood sugar under better control at discharge. He will be discharged with Lantus 10 mg nightly and Humalog sliding scale. Instructed to continue checking blood sugars before meals at bedtime. Follow-up with primary care physician. 1. Hyperglycemia due to uncontrolled type 2 diabetes mellitus without ketosis 2. Pseudohyponatremia secondary to hyperglycemia, resolved 3. Leukocytosis secondary to recent prednisone use 4. Acute kidney injury, resolved with IV fluids 5. Recent upper respiratory infection with laryngitis/skomthqgl-uycgicwn-kukswbhot in outpatient. Further prednisone discontinued. Patient was prescribed Augmentin which he will continue at discharge. Instructed to complete entire course. Follow-up with primary care physician. 6. Hypertension-stable, continue home lisinopril regimen. 7. Morbid obesity-encourage diet lifestyle modifications. 8. GERD General: Alert, Oriented x3, Cooperative HEENT: Atraumatic, PERRLA, EOMI, Normocephalic Oral: Moist mucosa Neck: Supple, No JVD, Negative Carotid Bruits Lungs: Clear to auscultation, Normal air movement Cardiovascular: Regular rate, Normal S1, Normal S2, No murmurs Abdomen: Bowel Sounds Present, Soft, Non Tender, Non-Distended Extremities: No edema, Capillary Refill Less than 3 Seconds, Edema Skin: No rashes, No breakdown Musculoskeletal: No Tenderness to Palpation of Joints or Extremities Neurological: Cranial nerves II-XII grossly intact Psych/Mental Status: Normal Affect, Appropriate Patient seen and examined prior to discharge. Physical assessment as noted above. Patient is stable for discharge home with the follow-up recommendations as noted above. This patient was seen by JAGJIT Owen under the supervision of Dr. Smith. - Physical Exam Vital Signs Temp Pulse Resp BP Pulse Ox 98.6 F 76 16 133/86 H 96 05/21/18 10:40 05/21/18 11:04 05/21/18 10:40 05/21/18 10:40 05/21/18 10:40 Oxygen Delivery Method Room Air Weight: 276 lb 14.409 oz Body Mass Index (BMI) 33.7 Finger Stick Blood Glucose 102 Orthostatic Vital Signs Start: 05/21/18 04:26 Freq: q24h Status: Active Protocol: Activity Type Activity Date Activity User E-Sign Co-Sign Detail Recorded Client Recorded Date Recorded By Document 05/21/18 04:26 [facility] [id number] 05/21/18 04:33 [facility] Orthostatic Vitals Standing -Blood Pressure (90/60-120/80) 147/96 H -Extremity Use Right Arm -Pulse Rate (60-100) 83 Sitting -Blood Pressure (90/60-120/80) 151/108 H Intake and Output for Last 24 Hours Intake Total 2913.4 / 2913.4 240 / 240 Balance 2913.4 / 2913.4 240 / 240 Laboratory Tests Past 24 Hrs WBC 13.0 H RBC 5.21 Hgb 15.5 Hct 43.8 WBC RBC Hgb Hct POC Glucose POC Glucose 243 H 231 H 212 H POC Glucose 126 H 102 188 H POC Glucose 177 H 283 H 322 H POC Glucose 334 H 336 H 458 H* POC Glucose > 500 H* > 500 H* Discharge Diet: 1800 Calorie Control Diet, Carb Control Diet Discharge Activity: Return to Normal Activity Call your doctor if you observe: Shortness of breath, Dizziness, Fainting spells, Chest pain Home Medications: Medications to take at Discharge Citalopram [Celexa] 40 mg PO DAILY 03/11/18 Metformin HCl [Glucophage Xr] 500 mg PO DAILY 03/11/18 Olanzapine [Zyprexa] 10 mg PO QHS 03/11/18 Prazosin HCl 2 mg PO QHS 03/11/18 Divalproex Sodium [Divalproex Sodium ER] 2,000 mg PO QHS 05/20/18 Lisinopril [Zestril] 10 mg PO DAILY 05/20/18 Insulin Glargine [Lantus SoloStar Pen] 10 units SC QHS #5 pen 05/21/18 Insulin Lispro [Humalog KwikPen] See Protocol SC ACHS #5 insuln.pen 05/21/18 Following Prescrptions Were Given to Patient: Insulin Glargine [Lantus SoloStar Pen] 10 units SC QHS #5 pen Insulin Lispro [Humalog KwikPen] See Protocol SC ACHS #5 insuln.pen Primary Care Physician: Michelle Brown MD [Primary Care Provider] - Please follow up with your Primary Care Physician in: 1 Week Disposition: Home Minutes spent on discharge:: 35 Patient Condition:: Stable Medical Necessity - Tobacco Use Smoking Status: Current every day smoker Tobacco Use: Cigarettes Meaningful Use Info Meaningful Use Diagnoses (Choose all that apply): None applicable <Jj Smith E - Last Filed: 05/21/18 14:58> Discharge Date and Diagnosis - Secondary Discharge Diagnosis Chronic Problems Benign hypertension (Chronic) Chronic back pain (Chronic) Type II diabetes mellitus (Chronic) Morbid obesity (Chronic) Hospital Course and Treatment Summary of Care Provided: Hospitalist note: Discharge summary above as well as physical examination reviewed and I agree and concur with the above discharge and treatment plan. Patient was admitted because of elevated blood sugar after he was started on prednisone for an upper respiratory tract infection. Patient does have history of type 2 diabetes mellitus and he states that he has not been able to take his insulin for a long period of time because he is not able to afford the medications. He was found to have blood sugar of 762 mg/dL on admission. There was no evidence of acute diabetic ketoacidosis. His hemoglobin A1c was 11.6%. Patient was admitted to PCU, started on IV insulin drip and shortly after, his blood sugar came down to 200s. IV since it was discontinued and he was started on his home doses of Lantus and Humalog sliding scale. He did have hyponatremia which is attributed to pseudohyponatremia secondary to hyperglycemia. On admission, he was found to have acute kidney injury attributed to severe hyperglycemia, admission creatinine was 1.42 and with IV fluids, creatinine came down to 1.05. Chest x-ray showed no acute findings. On the day of discharge, patient felt better. His vital signs were stable and he was afebrile. We will able to secure Lantus insulin as well as Humalog KwikPen before patient discharged home. Patient was discharged home in a stable medical condition, discharged on Lantus 10 units nightly and Humalog sliding scale, instructions given to check his blood sugar before meals and at bedtime, recommended to continue Augmentin that was prescribed before admission, recommended formal PCP in 1 week and recommended to be refitted to endocrinology as outpatient. - Physical Exam General: Alert, Oriented x3, Cooperative, No apparent distress HEENT: Atraumatic, PERRLA, EOMI, Normocephalic Oral: Moist Mucosa, No Gingival or Mucosal Lesions/ Ulcerations Neck: Supple, No JVD, Negative Carotid Bruits, Trachea Midline, Thyroid Normal Size and Texture Lungs: Clear to auscultation, No rhonchi, No wheeze, No rales, Diminished Cardiovascular: Regular rate, Regular Rhythm, Normal S1, Normal S2, No murmurs, PMI Normal Abdomen: Bowel Sounds Present, Soft, Non Tender, Non-Distended, No Hepato-splenomegaly Extremities: No clubbing, No cyanosis, No edema Skin: No rashes, No breakdown Lymphatic: No Cervical, Supraclavicular, or Inguinal Adenopathy Neurological: Cranial nerves II-XII grossly intact, Motor Exam 5/5 strength throughout Psych/Mental Status: Normal Affect, Appropriate, Alert and oriented to time, place, person, mood and affect Vital Signs are stable. - Physical Exam Vital Signs Temp Pulse Resp BP Pulse Ox 98.6 F 76 16 133/86 H 96 05/21/18 10:40 05/21/18 11:04 05/21/18 10:40 05/21/18 10:40 05/21/18 10:40 Oxygen Delivery Method Room Air Weight: 276 lb 14.409 oz Body Mass Index (BMI) 33.7 Finger Stick Blood Glucose 102 Intake and Output for Last 24 Hours Intake Total 2913.4 / 2913.4 680 / 680 Balance 2913.4 / 2913.4 680 / 680 Laboratory Tests Past 24 Hrs WBC 11.5 H RBC 5.03 Hgb 14.9 Hct 42.1 MCV 83.7 WBC RBC Hgb Hct MCV MCH MCHC RDW RDW Differential Plt Count MPV Immature Gran % (Auto) POC Glucose POC Glucose 243 H 231 H 212 H POC Glucose 126 H 102 188 H POC Glucose 177 H 283 H 322 H POC Glucose 334 H 336 H 458 H* POC Glucose > 500 H* > 500 H* Disposition: Home Minutes spent on discharge:: 26 Meaningful Use Info Meaningful Use Diagnoses (Choose all that apply): None applicable Code Visit OBSV E AND M: [id number] Observation care discharge 05/21/18 1233 <Electronically signed by Lorie WEBERC> Date Lorie WEBERC 05/21/18 1458<Electronically signed by Jj Smith MD> Cosigner Signature (if applicable): Date Jj Smith MD CC: JAGJIT Hagan; Jj Smith; Koby Menendez MD; Michelle Brown MD Signed DISCHARGE INSTRUCTION Observed: 05/21/2018 Status: F Source: [place] 12:20 PM [facility] REPOSITORY [facility] Medical Records Department [address] [place] [address] Instructions for Home/Discharge Instructions 05/21/18 1213 MR#: [id number] Acct: [id number] Name: DENVER HOLLINGSWORTH Rep #: [id number] : 1980 37 From: Lorie WEBERC PCP: Michelle Brown MD Status: ADM IN - Discharge Diagnoses Current Active Problems: Current Active and Chronic Problems Hyperosmolar non-ketotic state in patient with type 2 diabetes mellitus (Acute) You will use the following diet at home:: Calorie/Carbohydrate Controlled (specify 1200, 1400, etc) Discharge Activity: Return to Normal Activity Call your doctor if you observe: Shortness of breath, Dizziness, Fainting spells, Chest pain Additional Instructions: You were recently prescribed Augmentin for upper respiratory infection. You will need to continue this prescription at discharge and complete entire course. Allergies/Adverse Reactions: Allergies hydrocodone bitartrate [From Vicodin] Adverse Reaction (Verified 05/20/18 12:30) Nausea Medications to take at Discharge Citalopram [Celexa] 40 mg PO DAILY 03/11/18 Metformin HCl [Glucophage Xr] 500 mg PO DAILY 03/11/18 Olanzapine [Zyprexa] 10 mg PO QHS 03/11/18 Prazosin HCl 2 mg PO QHS 03/11/18 Divalproex Sodium [Divalproex Sodium ER] 2,000 mg PO QHS 05/20/18 Lisinopril [Zestril] 10 mg PO DAILY 05/20/18 Insulin Glargine [Lantus SoloStar Pen] 10 units SC QHS #5 pen 05/21/18 Insulin Lispro [Humalog KwikPen] See Protocol SC ACHS #5 insuln.pen 05/21/18 The following prescriptions were given: Insulin Glargine [Lantus SoloStar Pen] 10 units SC QHS #5 pen Insulin Lispro [Humalog KwikPen] See Protocol SC ACHS #5 insuln.pen Primary Care Physician: Michelle Brown MD [Primary Care Provider] - Please follow up with your Primary Care Physician in: 1 Week Test Results: Test results from this visit will be discussed in further detail at your follow-up appointment, if applicable. Proposed Discharge Date: 05/21/18 05/21/18 1220 <Electronically signed by Lorie DANIELSON> Date Lorie DANIELSON CC: Michelle Brown MD BEDSIDE GLUCOSE Collected: 05/21/2018 Status: F Source: [place] 11:00 AM [facility] REPOSITORY TYPE CODE TESTS RESULT OUT OF REFERENCE UNITS RANGE LAB L501.080 70-110 mg/dL High BEDSIDE GLU 278 Result Comment: MANAGEMENT OF PATIENT CARE PER NURSING PROTOCOL Performed By: #### L501.080 #### [facility] Care [address] [place], [place] [id number] BEDSIDE GLUCOSE Collected: 05/21/2018 Status: F Source: [place] 6:49 AM [facility] REPOSITORY TYPE CODE TESTS RESULT OUT OF REFERENCE UNITS RANGE LAB L501.080 70-110 mg/dL High BEDSIDE GLU 243 Result Comment: MANAGEMENT OF PATIENT CARE PER NURSING PROTOCOL Performed By: #### L501.080 #### [facility] Point [facility] Care [address] [place] [address] CBC W/DIFF, AUTOMATED Collected: 05/21/2018 Status: F Source: [place] 6:20 AM [facility] REPOSITORY TYPE CODE TESTS RESULT OUT OF RANGE REFERENCE UNITS LAB L100.1000 4.4-11.0 K/mm3 High WBC 11.5 LAB L100.1200 4.6-6.2 M/mm3 Normal RBC 5.03 LAB L100.1300 13.0-16.5 g/dl Normal HGB 14.9 LAB L100.1400 40-54 % Normal HCT 42.1 LAB L100.1500 80-94 fL Normal MCV 83.7 LAB L100.1600 27.0-32.0 pg Normal MCH 29.6 LAB L100.1700 32-36 g/gl Normal MCHC 35.4 LAB L100.1810 11.6-14.6 % Normal RDW CV 12.3 LAB L100.1820 35.1-43.9 fl Normal RDW SD 37.3 LAB L100.1900 150-450 K/mm3 Normal PLT 200 LAB L100.2000 6.2-12.0 fl Normal MPV 10.5 LAB L100.2100 47-70 % Normal NEUT% 58.4 LAB L100.2200 19-41 % Normal LY% 28.6 LAB L100.2300 0-10 % High MONO% 10.6 LAB L100.2400 0-5 % Normal EO% 1.6 LAB L100.2500 0-1 % Normal BASO% 0.3 LAB L100.2550 0.0-0.9 % Normal IM GRAN % 0.500 Result Comment: IG% - Immature Granulocytes (promyelocytes, myelocytes and metamyelocytes) > 1% indicates that a LEFT SHIFT is Present. LAB L100.2620 2.0-7.7 X10 3/uL Normal Absolute Neut 6.7 LAB L100.2720 0.83-4.51 X10 3/ul Normal Absolute Lymph 3.30 Performed By: #### L100.0100 #### [facility] [address] [place], [address] BASIC METABOLIC Collected: 05/21/2018 Status: F Source: [place] PROFILE (BMP) 6:20 AM [facility] REPOSITORY TYPE CODE TESTS RESULT OUT OF RANGE REFERENCE UNITS LAB L501.0100 74-106 mg/dL High GLU 250 Result Comment: Glucose result greater than or equal to 200 mg/dL suggests DIABETES MELLITUS per A.D.A. criteria. Please note revised GLUCOSE reference range effective 2017. LAB L501.1000 7-18 mg/dL Normal BUN 18 LAB L501.1100 0.70-1.30 mg/dL Normal CREAT,SERUM 1.05 Result Comment: The validity of the calculated GFR AND GFRAA in patients over 70 years has not been determined. Clinical correlation is essential. LAB L501.1110 >60 mL/min Normal EST GFR 84 Result Comment: Non- GFR Calc LAB L501.1115 >60 mL/min Normal EST GFR - AA 102 Result Comment: GFR Calc LAB L501.1255 ml/min Normal Estimated CRCL 118.26 LAB L501.1300 10-20 RATIO BUN/CRE Normal 17.1 LAB L501.2200 8.5-10 mg/dL Low .1 CA 7.8 LAB L501.5300 136-14 mmol/L 5 NA Normal 138 LAB L501.5600 3.5-5. mmol/L 1 K Normal 4.4 LAB L501.5900 98-107 mmol/L CL Normal 103 LAB L501.6100 21.0-3 mmol/L 2.0 CO2 Normal 28.0 LAB L501.6200 5-15 GAP Normal 7 Performed By: #### L500.2500, L500.3400, L501.5200 #### [facility] [address] [place], [address] LIVER PROFILE Collected: 05/21/2018 Status: F Source: [place] 6:20 AM [facility] REPOSITORY TYPE CODE TESTS RESULT OUT OF RANGE REFERENCE UNITS LAB L501.1500 6.4-8.2 g/dL Normal T PROT 6.5 LAB L501.1800 3.2-5.0 g/dL Low ALB 3.0 LAB L501.1950 2.2-4.2 g/dL Normal GLOB 3.5 LAB L501.4100 15-37 U/L Normal AST 28 LAB L501.4305 45-117 U/L Normal ALK P 75 LAB L501.4405 16-61 U/L Normal ALT 38 LAB L501.4600 0.20-1.00 mg/dL Normal T BILI 0.40 LAB L501.4700 0.00-0.30 mg/dL Normal D BILI 0.09 Performed By: #### L500.2500, L500.3400, L501.5200 #### [facility] [address] [place], [address] MAGNESIUM Collected: 05/21/2018 Status: F Source: [place] 6:20 AM [facility] REPOSITORY TYPE CODE TESTS RESULT OUT OF RANGE REFERENCE UNITS LAB L501.5200 1.6-2.6 mg/dL Normal MG 1.9 Performed By: #### L500.2500, L500.3400, L501.5200 #### [facility] [address] [place], [address] HEMOGLOBIN A1C Collected: 05/21/2018 Status: F Source: [place] 6:20 AM [facility] REPOSITORY TYPE CODE TESTS RESULT OUT OF RANGE REFERENCE UNITS LAB L501.9985 4.2-6.3 % High HGB A1C 11.6 Performed By: #### L501.9985 #### [facility] [address] [place], [place], [address] BEDSIDE GLUCOSE Collected: 05/21/2018 Status: F Source: [place] 4:34 AM [facility] REPOSITORY TYPE CODE TESTS RESULT OUT OF REFERENCE UNITS RANGE LAB L501.080 70-110 mg/dL High BEDSIDE GLU 231 Result Comment: MANAGEMENT OF PATIENT CARE PER NURSING PROTOCOL Performed By: #### L501.080 #### [facility] Point of Care [address] [place] [address] BEDSIDE GLUCOSE Collected: 05/21/2018 Status: F Source: [place] 2:27 AM [facility] REPOSITORY TYPE CODE TESTS RESULT OUT OF REFERENCE UNITS RANGE LAB L501.080 70-110 mg/dL High BEDSIDE GLU 212 Result Comment: MANAGEMENT OF PATIENT CARE PER NURSING PROTOCOL Performed By: #### L501.080 #### [facility] Point of Care [address] [place] [address] BEDSIDE GLUCOSE Collected: 05/21/2018 Status: F Source: [place] 12:23 AM [facility] REPOSITORY TYPE CODE TESTS RESULT OUT OF REFERENCE UNITS RANGE LAB L501.080 70-110 mg/dL High BEDSIDE GLU 126 Result Comment: MANAGEMENT OF PATIENT CARE PER NURSING PROTOCOL Performed By: #### L501.080 #### [facility] Point of Care [address] [place] [address] BEDSIDE GLUCOSE Collected: 05/20/2018 Status: F Source: [place] 11:57 PM [facility] REPOSITORY TYPE CODE TESTS RESULT OUT OF RANGE REFERENCE UNITS LAB L501.080 70-110 mg/dL Normal BEDSIDE GLU 102 Result Comment: MANAGEMENT OF PATIENT CARE PER NURSING PROTOCOL Performed By: #### L501.080 #### [facility] Point of Care [address] [place] [address] BEDSIDE GLUCOSE Collected: 05/20/2018 Status: F Source: [place] 11:09 PM [facility] REPOSITORY TYPE CODE TESTS RESULT OUT OF REFERENCE UNITS RANGE LAB L501.080 70-110 mg/dL High BEDSIDE GLU 188 Result Comment: MANAGEMENT OF PATIENT CARE PER NURSING PROTOCOL Performed By: #### L501.080 #### [facility] Point of Care [address] [place] [address] BEDSIDE GLUCOSE Collected: 05/20/2018 Status: F Source: [place] 9:59 PM [facility] REPOSITORY TYPE CODE TESTS RESULT OUT OF REFERENCE UNITS RANGE LAB L501.080 70-110 mg/dL High BEDSIDE GLU 177 Result Comment: MANAGEMENT OF PATIENT CARE PER NURSING PROTOCOL Performed By: #### L501.080 #### [facility] Point of Care [address] [place], [place] [id number] ACETONE SERUM Collected: 05/20/2018 Status: F Source: [place] 9:15 PM [facility] REPOSITORY TYPE CODE TESTS RESULT OUT OF RANGE REFERENCE UNITS LAB L501.6900 NEG Normal ACETONE SERUM NEGATIVE Performed By: #### L501.6900 #### [facility] [address] [place], [place], [address] BASIC METABOLIC Collected: 05/20/2018 Status: F Source: [place] PROFILE (BMP) 9:15 PM [facility] REPOSITORY TYPE CODE TESTS RESULT OUT OF RANGE REFERENCE UNITS LAB L501.0100 74-106 mg/dL High GLU 209 Result Comment: Glucose result greater than or equal to 200 mg/dL suggests DIABETES MELLITUS per A.D.A. criteria. Please note revised GLUCOSE reference range effective 2017. LAB L501.1000 7-18 mg/dL Normal BUN 18 LAB L501.1100 0.70-1.30 mg/dL Normal CREAT,SERUM 1.07 Result Comment: The validity of the calculated GFR AND GFRAA in patients over 70 years has not been determined. Clinical correlation is essential. LAB L501.1110 >60 mL/min Normal EST GFR 82 Result Comment: Non- GFR Calc LAB L501.1115 >60 mL/min Normal EST GFR - AA 100 Result Comment: GFR Calc LAB L501.1255 ml/min Normal Estimated CRCL 116.05 LAB L501.1300 10-20 RATIO BUN/CRE Normal 16.8 LAB L501.2200 8.5-10 mg/dL Low .1 CA 7.9 LAB L501.5300 136-14 mmol/L 5 NA Normal 139 LAB L501.5600 3.5-5. mmol/L Low 1 K 3.4 LAB L501.5900 98-107 mmol/L CL Normal 103 LAB L501.6100 21.0-3 mmol/L 2.0 CO2 Normal 29.0 LAB L501.6200 5-15 GAP Normal 7 Performed By: #### L500.2500 #### [facility] [address] [place], [address] BEDSIDE GLUCOSE Collected: 05/20/2018 Status: F Source: [place] 8:59 PM [facility] REPOSITORY TYPE CODE TESTS RESULT OUT OF REFERENCE UNITS RANGE LAB L501.080 70-110 mg/dL High BEDSIDE GLU 283 Result Comment: MANAGEMENT OF PATIENT CARE PER NURSING PROTOCOL Performed By: #### L501.080 #### [facility] Point of Care [address] [place] [address] BEDSIDE GLUCOSE Collected: 05/20/2018 Status: F Source: [place] 8:04 PM [facility] REPOSITORY TYPE CODE TESTS RESULT OUT OF REFERENCE UNITS RANGE LAB L501.080 70-110 mg/dL High BEDSIDE GLU 322 Result Comment: MANAGEMENT OF PATIENT CARE PER NURSING PROTOCOL Performed By: #### L501.080 #### [facility] Point of Care [address] [place] [address] BEDSIDE GLUCOSE Collected: 05/20/2018 Status: F Source: [place] 6:57 PM [facility] REPOSITORY TYPE CODE TESTS RESULT OUT OF REFERENCE UNITS RANGE LAB L501.080 70-110 mg/dL High BEDSIDE GLU 334 Result Comment: MANAGEMENT OF PATIENT CARE PER NURSING PROTOCOL Performed By: #### L501.080 #### [facility] Point of Care [address] [place] [address] CT/NG W[facility] BY PCR Collected: 05/20/2018 Status: F Source: [place] 6:30 PM [facility] REPOSITORY TYPE CODE TESTS RESULT OUT OF RANGE REFERENCE UNITS LAB L8200.2100 Negative Normal Chlam Negative Trac PCR LAB L8200.2200 Negative Normal NG by Negative PCR Performed By: #### L8200.2000 #### [facility] [address] [place], [address] URINALYSIS, COMPLETE Collected: 05/20/2018 Status: F Source: [place] 6:30 PM [facility] REPOSITORY Order Comment: Order Date: 05/20/18 How was Urine Obtained? CLEAN CATCH TYPE CODE TESTS RESULT OUT OF RANGE REFERENCE UNITS LAB L400.3000 Yellow COLOR Normal Yellow LAB L400.3050 Clear Normal CLARITY Clear LAB L400.3200 Normal mg/dl High GLUCOSE, UR 1000 LAB L400.3300 Negative mg/dL Normal BILIRUBIN URINE Negative LAB L400.3400 Negative mg/dl Normal KETONE UR Negative LAB L400.3465 1.002-1.030 Normal SP.GR. DIPSTX 1.015 LAB L400.3550 5.0 - 8.0 pH UR Normal 6.0 LAB L400.3600 Negative mg/dl PROT Normal DIPSTX Negative LAB L400.3700 Normal mg/dl Normal UROBILI Normal LAB L400.3750 Negative Normal NITRITE UR Negative LAB L400.3780 Negative /ul Normal OCCULT BLOOD-UR Negative LAB L400.3800 Negative /ul LEUK Normal ESTERASE Negative LAB L400.4050 0-5 /hpf WBC 0 Normal SEEN LAB L400.4100 0-5 /hpf 0 Normal RBC-UA SEEN LAB L400.4150 0-5 /hpf SQUAM 0 Normal EPI SEEN LAB L400.4300 None Seen /hpf 0 Normal BACTERIA SEEN LAB L400.4350 <or=2+ /hpf 0 Normal MUCUS, URINE SEEN Performed By: #### L400.0001 #### [facility] [address] [facility] [place], [address] Observed: 05/20/2018 Status: F Source: [place] CULTURE, URINE 6:30 PM [facility] REPOSITORY Order Date: 05/20/18 Has pt arrived? Y Urine Culture ORGANISM 1: Mixed Gram Positive Organisms [place] Count 1000-10,000 MIX CULTURE Mixed contaminants. Submit a new specimen if indicated. Performed By: #### M100.0650 #### [facility] [address] [facility] [place], [address] HISTORY AND PHYSICAL Observed: 05/20/2018 Status: F Source: [place] EXAM 6:29 PM [facility] REPOSITORY [facility] Medical Records Department [address] [facility] [place] [address] History and Physical 05/20/18 1736 MR#: [id number] Acct: [id number] Name: DENVER HOLLINGSWORTH Rep #: [id number] : 1980 37 From: William Frankel MD PCP: Michelle Brown MD Status: ADM IN Y Location: [place] [address] Problem List (1) Hyperosmolar non-ketotic state in patient with type 2 diabetes mellitus Status: Acute (2) Acute laryngitis Status: Acute (3) Acute epididymo-orchitis Status: Acute (4) GERD (gastroesophageal reflux disease) Status: Acute (5) Benign hypertension Status: Chronic (6) Chronic back pain Status: Chronic (7) Type II diabetes mellitus Status: Chronic (8) Morbid obesity Status: Chronic (9) Gall stone pancreatitis Status: Resolved History of Present Illness Date of Admission: 05/20/18 Chief Complaint: Hyperglycemia after being on prednisone given for laryngitis The patient is a 37 year old M with history of type 2 diabetes mellitus has acute laryngitis, hoarseness of voice, symptoms for 2 weeks but went to [facility] on last Saturday and was prescribed Augmentin and Medrol Dosepak but did not take Augmentin. Patient went to see PCP on last Saturday and then started taking most probably Medrol Dosepak from Saturday. Patient has symptoms of polyuria, polydipsia and polyphagia started feeling very thirsty and dry. Patient was also prescribed Lantus 15 units daily and sliding scale NovoLog but he could not take it because of cost. He also complained of left-sided testicular pain. Patient has mild fever with chills. [] In ED, there was no fever noted but patient was tachypneic. No hypoxia. BMP shows sodium 123, chloride 88, BUN 21, creatinine 1.42. Glucose 762. Accu-Cheks 458. Patient denies burning micturition but has increased frequency probably secondary to hyperosmolar hyperglycemia Past Medical History Past Medical History (Chronic Problems): Chronic Problems Benign hypertension (Chronic) Chronic back pain (Chronic) Type II diabetes mellitus (Chronic) Morbid obesity (Chronic) Allergies hydrocodone bitartrate [From Vicodin] Adverse Reaction (Verified 05/20/18 12:30) Nausea Home Medications: Ambulatory Orders Medication Instructions Recorded Citalopram [Celexa] 40 mg PO DAILY 03/11/18 Divalproex Sodium 2,000 mg PO QHS 03/11/18 Surgical History: no surgical history Psychiatric History: No pertinent psych hx Smoking Status: Current every day smoker Tobacco Use: Cigarettes - *Family History Paternal History Items: Diabetes, Heart Disease Maternal History Items: Heart Disease Review of Systems Constitutional: Reports: Chills, Fever HEENT: Denies: Head Aches, Sinus Congestion, Sinus Drainage Cardiovascular: Denies: Chest Pain, Palpitations Respiratory: Reports: Cough, - - Hoarseness of voice. Denies: Shortness of breath at rest, Sputum production Gastrointestinal: Denies: Abdominal Pain, Nausea, Vomiting Genitourinary: Reports: Frequency, - - Testicular pain. Denies: Dysuria Musculoskeletal: Denies: Joint Pain, Joint Tenderness Skin: Denies: Rash, Wounds Neurological: Denies: Numbness, Tingling, Focal weakness Psychiatric: Denies: Anxiety, Depression, Homicidal Ideations, Suicidal Ideations Hematologic/ Lymphatic: Denies: Easy Bruising, Easy Bleeding VTE Information - Inpt Only VTE Present on Admission: No VTE Mechan Device Prophylaxis: SCD's VTE Pharm Prophylaxis ordered?: No Reason prophylaxis not ordered:: Procedure Not Indicated Patient Problems: Active and Suspected Problems Hyperosmolar non-ketotic state in patient with type 2 diabetes mellitus (Acute) Acute laryngitis (Acute) Acute epididymo-orchitis (Acute) - Physical Exam General: Alert, Oriented x3, Cooperative HEENT: Atraumatic, PERRLA, EOMI, Normocephalic Oral: - - No redness or exudate seen in hard palate or soft palate posterior pharyngeal wall. Base of tongue could not be seen. Neck: Supple, No JVD, Negative Carotid Bruits Lungs: Clear to auscultation, Normal air movement, No rhonchi, No wheeze, No rales Cardiovascular: Regular rate, Normal S1, Normal S2, No murmurs Abdomen: Bowel Sounds Present, Soft, Non Tender, Non-Distended, - - Left testes and epididymitis tender. Tenderness on palpation. No malrotation of testis. Extremities: No edema, Capillary Refill Less than 3 Seconds, Edema Skin: No rashes, No breakdown Musculoskeletal: No Tenderness to Palpation of Joints or Extremities Neurological: Cranial nerves II-XII grossly intact Psych/Mental Status: Normal Affect, Appropriate Vital Signs Temp Pulse Resp BP Pulse Ox 97.6 F L 92 18 140/94 H 96 05/20/18 17:12 05/20/18 17:12 05/20/18 17:16 05/20/18 17:12 05/20/18 17:12 Oxygen Delivery Method Room Air Weight: 276 lb 14.4 oz Body Mass Index (BMI) 33.7 Finger Stick Blood Glucose 509 Laboratory Tests Past 24 Hrs WBC 13.0 H RBC 5.21 Hgb 15.5 Hct 43.8 MCV 84.1 MCH 29.8 MCHC 35.4 RDW 11.9 POC Glucose POC Glucose 458 H* > 500 H* > 500 H* Assessment/Plan All Active Problems Hyperosmolar non-ketotic state in patient with type 2 diabetes mellitus (Acute) Acute laryngitis (Acute) Acute epididymo-orchitis (Acute) GERD (gastroesophageal reflux disease) (Acute) Gall stone pancreatitis (Resolved) The patient is a 37 year old M with history of type 2 diabetes mellitus has acute laryngitis, hoarseness of voice, symptoms for 2 weeks but went to [facility] on last Saturday and was prescribed Augmentin and Medrol Dosepak but did not take Augmentin. Patient went to see PCP on last Saturday and then started taking most probably Medrol Dosepak from Saturday. Patient has symptoms of polyuria, polydipsia and polyphagia started feeling very thirsty and dry. Patient was also prescribed Lantus 15 units daily and sliding scale NovoLog but he could not take it because of cost. He also complained of left-sided testicular pain. Patient has mild fever with chills. [] In ED, there was no fever noted but patient was tachypneic. No hypoxia. BMP shows sodium 123, chloride 88, BUN 21, creatinine 1.42. Glucose 762. Accu-Cheks 458. Patient denies burning micturition but has increased frequency probably secondary to hyperosmolar hyperglycemia. 1. Hyperosmolar with type 2 diabetes mellitus secondary to Medrol Dosepak: The patient is being admitted on stepdown unit mainly due to insulin drip. Needs IV fluid normal saline as per protocol. Patient had 3 L of IV fluid normal saline. Continue insulin drip and hourly Accu-Cheks. Once Accu-Chek is between 100-200 mg/dL, Lantus 10 units subcutaneous and overlap insulin drip for about 3 hours then discontinue it. After that Accu-Chek before meals and at bedtime and cover with NovoLog sliding scale and Lantus 10 units twice daily 2. Diabetes mellitus type 2: She did have 3. Infectious condition: Acute laryngitis, left epididymoorchitis, acute: UA and urine culture ordered. Started on IV ceftriaxone. Azithromycin 250 mg 1 dose. Hold Celexa for today but may resume for tomorrow. QTc interval is 408 ms. 4. Acute kidney injury mainly due to dehydration/prerenal etiology: IV fluid normal saline. Monitor kidney function and BMP. Hold lisinopril. 5. Other chronic comorbid is include GERD and hypertension: Blood pressure is controlled. Continue home medications. DVT prophylaxis: Bilateral SCDs. Low risk. This note was generated with Nebo[employer]ru dictation software. Every effort was made to ensure accuracy, however computerized registered medical transcriptionist mistakes may persist. Code Visit Inpatient E AND M: [id number] Init Hosp L3 05/20/18 1829 <Electronically signed by William Frankel MD> Date William Frankel MD Cosigner Signature: Date (if applicable) CC: Michelle Brown MD; William Frankel MD Signed BEDSIDE GLUCOSE Collected: 05/20/2018 Status: F Source: [place] 6:05 PM [facility] REPOSITORY TYPE CODE TESTS RESULT OUT OF REFERENCE UNITS RANGE LAB L501.080 70-110 mg/dL High BEDSIDE GLU 336 Result Comment: MANAGEMENT OF PATIENT CARE PER NURSING PROTOCOL Performed By: #### L501.080 #### [facility] Point of Care [address] [place] [id number] BEDSIDE GLUCOSE Collected: 05/20/2018 Status: F Source: [place] 5:01 PM [facility] REPOSITORY TYPE CODE TESTS RESULT OUT OF REFERENCE UNITS RANGE LAB L501.080 70-110 mg/dL High alert BEDSIDE GLU 458 Result Comment: Dr Orders Followed MANAGEMENT OF PATIENT CARE PER NURSING PROTOCOL Performed By: #### L501.080 #### [facility] Point of Care [address] [place] [address] BEDSIDE GLUCOSE Collected: 05/20/2018 Status: F Source: [place] 4:31 PM [facility] REPOSITORY TYPE CODE TESTS RESULT OUT OF REFERENCE UNITS RANGE LAB L501.080 70-110 mg/dL High alert BEDSIDE GLU > 500 Result Comment: Dr Orders Followed MANAGEMENT OF PATIENT CARE PER NURSING PROTOCOL Performed By: #### L501.080 #### [facility] Point of Care [address] [place] [place] [address] BEDSIDE GLUCOSE Collected: 05/20/2018 Status: F Source: [place] 4:05 PM [facility] REPOSITORY TYPE CODE TESTS RESULT OUT OF REFERENCE UNITS RANGE LAB L501.080 70-110 mg/dL High alert BEDSIDE GLU > 500 Result Comment: Orders Followed MANAGEMENT OF PATIENT CARE PER NURSING PROTOCOL Performed By: #### L501.080 #### [facility] Point of Care [address] [place] [address] EMERGENCY DEPARTMENT Observed: 05/20/2018 Status: F Source: [place] SUMMARY 4:04 PM [facility] REPOSITORY [facility] Medical Records Department [address] [address] [place] [address] Emergency Department Summary 05/20/18 1559 MR#: [id number] Acct: [id number] Name: DENVER HOLLINGSWORTH Maria Esther Rep #: [id number] : 1980 37 From: Fadi Wong MD PCP: Michelle Brown MD Status: REG ER - ER Visit Summary Date of Service: 05/20/18 Chief Complaint: Shortness of breath, cough, change in voice and elevated blood sugars History of Present Illness: The patient is a 37 M who presents because of URI symptoms that started 2 weeks ago. He was seen at urgent care and placed on Augmentin and prednisone. He states since he was placed on prednisone he had trouble controlling his blood sugar. Furthermore he reports polyuria, polydipsia, polyphagia and frequency. He does report thirst and orthostatic symptoms. He states the medication he was prescribed has had no effect. He is a smoker. His cough is nonproductive. He does complain of shortness of breath. He does complain of wheezing and he does not give history of asthma. He denies fever, chills or night sweats. He does complain of blurred vision. He does report palpitations otherwise cardiovascular negative. GI is positive for nausea and vomiting for the past several days. is positive for frequency otherwise negative. He also complains of generalized weakness. Please read written note. Physical Examination: Vital signs noted and blood pressure is elevated at 212/122. Heart rate is 100. Head is atraumatic normocephalic. Pupils are equal round reactive. Extraocular muscles are intact. Funduscopic exam reveals no papilledema. TMs are pearly white with landmarks noted. Nares patent with no drainage. Posterior pharynx without erythema or exudate. Uvula is midline. There is no dysphonia or dysphasia. Trachea is midline. There is no stridor with auscultation of the neck. Heart is regular without murmur, gallop or rub. S1 and S2 are normal. Lungs are clear to auscultation with good movement of air bilaterally. Abdomen is soft and nontender. There is no guarding or peritoneal findings. There is no palpable pulsatile mass. There is no abdominal bruit. Mann sign is negative. Negative Rovsing sign. There is no evidence of inguinal or umbilical hernia. There is no asymmetry, swelling, discoloration, leg vein distention, palpable cords or tenderness along the distribution of the deep venous system. Patient is alert and oriented 3. Motor is 5 over 5. Sensory is intact. DTRs are symmetric with no clonus or Babinski sign. Cranial 2 through 12 are intact. Cerebellar testing is normal. Test Results: EKG sinus rhythm rate of 98 with a first-degree AV block nonspecific ST-T wave changes. Two-view chest x-ray interpreted by me as negative. White count is 13,000, which may be secondary to the prednisone he is presently on. Electro panels marked for sodium 123 and chloride of 88 suspect this is pseudohyponatremia secondary to his hyperglycemia in part. Patient received 2 L of normal saline. He was placed on insulin drip after the fluid bolus. Patient blood pressure was not treated since most recent is 164/93. Emergency Department Course and Treatment: Evaluation for respiratory symptoms, electronic panel to evaluate blood sugar renal function. IV fluids for hyperglycemia and insulin drip. Treatment Plan: ICU Disposition: Admit ICU on insulin drip Impression: 1. Hyperglycemia with out ketosis or anion gap 2. Hyponatremia secondary to hyperglycemia, pseudohyponatremia 3. Leukocytosis secondary to prednisone 4. Viral upper restaurant infection with laryngitis 5. Hypertension without evidence of endorgan injury This note was generated with Nebo.ru dictation software. It may contain incorrect words, spelling, and punctuation that were not noted in review of the chart prior to signing ED Disposition - Plan for ED Patient: Chief Complaint: Shortness of Breath Referrals: Michelle Brown MD [Primary Care Provider] - What to do if you have Problems For any increased pain, shortness of breath, bleeding, nausea or vomiting, chest pain, or any unexpected problems, contact your Primary Care Provider. Call [facility] ([phone]) or report to the closest Emergency Room. Call 911 if necessary. 05/20/18 1604 <Electronically signed by Fadi Wong MD> Date Fadi Wong MD Cosigner Signature (If Indicated): Date CC: Michelle Brown MD CBC W/DIFF, AUTOMATED Collected: 05/20/2018 Status: F Source: [place] 1:30 PM [facility] REPOSITORY TYPE CODE TESTS RESULT OUT OF RANGE REFERENCE UNITS LAB L100.1000 4.4-11.0 K/mm3 High WBC 13.0 LAB L100.1200 4.6-6.2 M/mm3 Normal RBC 5.21 LAB L100.1300 13.0-16.5 g/dl Normal HGB 15.5 LAB L100.1400 40-54 % Normal HCT 43.8 LAB L100.1500 80-94 fL Normal MCV 84.1 LAB L100.1600 27.0-32.0 pg Normal MCH 29.8 LAB L100.1700 32-36 g/gl Normal MCHC 35.4 LAB L100.1810 11.6-14.6 % Normal RDW CV 11.9 LAB L100.1820 35.1-43.9 fl Normal RDW SD 36.5 LAB L100.1900 150-450 K/mm3 Normal PLT 227 LAB L100.2000 6.2-12.0 fl Normal MPV 10.6 LAB L100.2100 47-70 % Normal NEUT% 64.1 LAB L100.2200 19-41 % Normal LY% 22.5 LAB L100.2300 0-10 % High MONO% 11.2 LAB L100.2400 0-5 % Normal EO% 1.0 LAB L100.2500 0-1 % Normal BASO% 0.5 LAB L100.2550 0.0-0.9 % Normal IM GRAN % 0.700 Result Comment: IG% - Immature Granulocytes (promyelocytes, myelocytes and metamyelocytes) > 1% indicates that a LEFT SHIFT is Present. LAB L100.2620 2.0-7.7 X10 3/uL High Absolute Neut 8.3 LAB L100.2720 0.83-4.51 X10 3/ul Normal Absolute Lymph 2.91 Performed By: #### L100.0100 #### [facility] [address] [place], [address] BASIC METABOLIC Collected: 05/20/2018 Status: F Source: [place] PROFILE ([facility]) 1:30 PM [facility] REPOSITORY TYPE CODE TESTS RESULT OUT OF RANGE REFERENCE UNITS LAB L501.0100 74-106 mg/dL High alert GLU 762 Result Comment: Critical Result(s) Called at: 13:58:25 05/20/2018 by: Gosia Helton Glucose result greater than or equal to 200 mg/dL suggests DIABETES MELLITUS per A.D.A. criteria. Please note revised GLUCOSE reference range effective 2017. LAB L501.1000 7-18 mg/dL High BUN 21 LAB L501.1100 0.70-1.30 mg/dL High CREAT,SERUM 1.42 Result Comment: The validity of the calculated GFR AND GFRAA in patients over 70 years has not been determined. Clinical correlation is essential. LAB L501.1110 >60 mL/min Low EST GFR 59 Result Comment: Non- GFR Calc LAB L501.1115 >60 mL/min Normal EST GFR - AA 72 Result Comment: GFR Calc LAB L501.1255 ml/min Normal Estimated CRCL 87.45 LAB L501.1300 10-20 RATIO Normal BUN/CRE 14.8 LAB L501.2200 8.5-10 mg/dL Normal .1 CA 9.0 LAB L501.5300 136-14 mmol/L Low 5 NA 123 LAB L501.5600 3.5-5. mmol/L Normal 1 K 4.3 LAB L501.5900 98-107 mmol/L Low CL 88 LAB L501.6100 21.0-3 mmol/L Normal 2.0 CO2 23.0 LAB L501.6200 5-15 Normal GAP 12 Performed By: #### L500.2500 #### [facility] [address] [facility] [place], [address] CHEST PA AND LATERAL Observed: 05/20/2018 Status: F Source: [place] 1:11 PM [facility] REPOSITORY [facility] Imaging Services [address] [place] [address] Chest PA and Lateral MR#: [id number] Acct: [id number] Name: DENVER HOLLINGSWORTH Rep #: [id number] : 1980 M 37 From: Wilfrid Walden MD PCP: Michelle Brown MD Status: REG ER Study: Chest PA and Lateral Date of Exam: 05/20/18 Exam# [id number] Ordering Dr: Fadi Wong MD STUDY: X-RAY CHEST REASON FOR EXAM: Male, 37 years old. Cough and wheezing. TECHNIQUE: PA and lateral views of the chest. COMPARISON: Comparison is made with prior study dated June 30, 2017. FINDINGS: EKG electrodes are seen. Mild degree of the increased linear markings at the lung bases most likely secondary to poor inspiratory effort. There is no demonstrated pleural abnormality. Normal size heart. Normal mediastinum and matthew. Normal visualized pulmonary arteries. Normal visualized aortic arch and descending thoracic aorta. There are diffuse degenerative changes of the visualized thoracic spine. Normal visualized ribs, clavicles, and shoulders. There is no demonstrated abnormality of the visualized soft tissue structures of the upper abdomen. RAD/Chest PA and Lateral IMPRESSION: Mild degree of increased markings at the lung bases most likely secondary to limited inspiration. Electronically Signed: Wilfrid Walden MD at 14:31 EST Tel [phone], Service support , CC: Michelle Brown MD; Fadi Wong MD Superintendent System Operation: Signed PROGRESS Observed: 05/20/2018 Status: COMPLETED Source: [place] 11:20 AM [facility] [place] REPOSITORY HNO ID: [id number] Author: Ray ([facility]) Billy Service: (none) Author Type: Nurse Specialist Type: Progress Notes Filed: 05/20/2018 5:50 PM Note Text: OUTPATIENT VISIT DATE May 20, 2018 OUTPATIENT VISIT TYPE ESTABLISHED PRIMARY CARE PHYSICIAN: Michelle Brown MD CHIEF COMPLAINT: Patient presents with: URI History of Present Illness: Denver Hollingsworth is a 37 year old male who was last seen 04/15/2018. He has been seen in the past for ACTIVE PROBLEM LIST Attention Deficit Disorder Without Mention of Hyperactivity Obesity, Unspecified Diabetes Mellitus Type 2, Uncontrolled, Without Complications (Hcc) Essential Hypertension Unspecified Sleep Apnea Cavus Deformity of Foot, Acquired Cervicalgia Anxiety and Depression Mixed Hyperlipidemia Presented 4 days ago for ER follow up of foot pain after a cow stepped on him and upper respiratory infection symptoms. Noted to have viral URI. Provided with methylprednisolone dose pack and doxycyline to take if not improved in 2-3 days after visit. Since the last visit, he reports cough and upper respiratory symptoms for 2 weeks. He states that he has not begun doxycycline. Did take methylprednisolone dose pack for 3 daysthen discontinued. Reports having trouble sleeping at night due to cough. Somnolent during the day today. Productive cough. No known fever at home. Reports sore throat and hoarse voice.he is diabetic, reports he has not been checking blood sugars, reports polyuria and polydipsia. Reports has been drinking beverages with sugar. Reports he has been taking medications as ordered including diabetes and blood pressure medications. The ROS is otherwise negative. The patient's pmh, medications, allergies, and past visits are reviewed. PHYSICAL EXAM: BP 150/102 (BP Site: Left Arm, BP Position: Sitting, BP Cuff Size: Large Adult) Pulse 94 Temp 36.8 ?C (98.2 ?F) Resp 16 Wt 126.6 kg (279 lb) SpO2 96% BMI 35.81 kg/m? General appearance: tired/ill appearing, somnolent but easily arousable Head: Normocephalic Eyes: conjunctiva/corneas normal Ears: R TM - dull, L TM - dull Nose: clear rhinorrhea Oropharynx: moist without lesions Neck: supple and small, benign anterior cervical nodes bilaterally Heart: regular rate and rhythm, without murmur Lungs: clear to auscultation, good air exchange, diminished breath sounds, wheezing diffusely, rhonchi left, posterior lung field No recent hospital or ED visits. No new medical problems or medications. Able to obtain medications. No problems with taking medications or note side effects. PAST MEDICAL HISTORY Diagnosis Date - Anal fissure 03/03/2013 - Attention deficit disorder without mention of hyperactivity diagnosed in childhood - Back pain 02/12/2012 - Chronic post-traumatic headache - Closed fracture of dorsal (thoracic) vertebra without mention of spinal cord injury 04/03/2012 - Corns and callosities 12/05/2009 - Depressive disorder, not elsewhere classified 06/10/2012 - DIABETES MELLITUS TYPE II-UNCOMPL 08/30/2008 - Dysmetabolic syndrome X 07/21/2008 - Nonspecific abnormal results of liver function study 04/06/2005 Ferritin 225, HBsAg and Hep C negative in - U/S Fatty Liver - Pain in joint, lower leg 06/05/2012 - Unspecified essential hypertension 08/30/2008 PAST SURGICAL HISTORY Procedure Laterality Date - EGD W/O OR W/BRUSH/WASH 07/29/13 EGD - PAST SURGICAL HISTORY OF tooth extraction. FAMILY HISTORY Problem Relation Age of Onset - Diabetes Father - Hypertension Mother - COPD Mother - Coronary Artery Disease Father Bypass surgery and [place] 2012 - Diabetes Paternal Grandfather - Cancer Maternal Grandfather unknown - Heart Father - Heart Brother Social History Substance Use Topics - Smoking status: Current Every Day Smoker Packs/day: 0.50 Years: 15.00 Types: Cigarettes - Smokeless tobacco: Never Used Comment: 1/2 pack daily - Alcohol use No ALLERGIES: ALLERGIES Allergen Reactions - Metformin Diarrhea even on XR 500 mg once daily - Vicodin [Hydrocodon* GI Upset MEDICATIONS divalproex ER (DEPAKOTE ER) 500 mg 24 hr tablet Take 1 tab daily for 3 days, then increase to 1 tab twice a day for 3 days. Can increase every 3 days up to 4 times a day if needed. OLANZapine (ZYPREXA) 10 mg tablet Take 1 tablet by mouth daily at bedtime. lisinopril (ZESTRIL, PRINIVIL) 10 mg tablet Take 1 tablet by mouth once daily. citalopram (CELEXA) 40 mg tablet Take 1 tablet by mouth every morning. prazosin (MINIPRESS) 2 mg cap Take 1 capsule by mouth daily at bedtime. metFORMIN (GLUCOPHAGE) 500 mg tablet Take 2 tablets by mouth twice daily with meals. insulin glargine (LANTUS SOLOSTAR U-100 INSULIN) 100 unit/mL (3 mL) inpn Inject 25 Units subcutaneously daily at bedtime. PATIENT ASSISTANCE SANOFI NOVOLOG FLEXPEN U-100 INSULIN 100 unit/mL inpn Inject 10 Units subcutaneously three times daily with meals. Blood-Glucose Meter monitoring kit Glucose Meter of Choice (whatever is covered by insurance) - Kit - Dx: Type 2 DM - Uncontrolled E11.65 blood sugar diagnostic (BLOOD GLUCOSE TEST) test strip Choose brand covered by insurance. Test blood sugar(s) 3 times daily. Dx: Type 2 DM - Uncontrolled E11.65 Insulin: Yes Lancets lancets Choose lancets covered by insurance. Test blood sugar(s) 3 times daily. Dx: Type 2 DM - Uncontrolled E11.65 Insulin: Yes Insulin L[place]ell, Disposable, (BD ULTRA-FINE SAGRARIO PEN NEEDLES) 32 gauge x 5/32 ndle Use one needle for each dose. 4/day. Insulin Syringe-Needle U-100 0.3 mL 29 gauge x 1/2 syrg USE ONE SYRINGE FOR EACH INSULIN DOSE/ 2 PER DAY amoxicillin-clavulanic acid (AUGMENTIN) 875-125 mg per tablet Take 1 tablet by mouth twice daily for 10 days. Take with food albuterol HFA (PROVENTIL HFA, VENTOLIN HFA) 90 mcg/actuation inhaler Two puffs every 4 hours as need for wheezing, SOB. dextromethorphan (DELSYM) 30 mg/5 mL liquid Take 10 mL by mouth twice daily. for cough Reviewed chart, outside records, tests I personally interviewed, confirmed and edited the above information if obtained by others. TESTING: Glucose (mg/dL) Date Value 09/11/2017 254 Potassium (mmol/L) Date Value 09/11/2017 4.2 Sodium (mmol/L) Date Value 09/11/2017 137 Chloride (mmol/L) Date Value 09/11/2017 99 CO2 (mmol/L) Date Value 09/11/2017 23 Creatinine (mg/dL) Date Value 09/11/2017 0.89 BUN (mg/dL) Date Value 09/11/2017 17 Anion Gap (mmol/L) Date Value 09/11/2017 15 Calcium (mg/dL) Date Value 09/11/2017 9.2 Glucose (mg/dL) Date Value 09/11/2017 254 Potassium (mmol/L) Date Value 09/11/2017 4.2 Sodium (mmol/L) Date Value 09/11/2017 137 Chloride (mmol/L) Date Value 09/11/2017 99 CO2 (mmol/L) Date Value 09/11/2017 23 Creatinine (mg/dL) Date Value 09/11/2017 0.89 BUN (mg/dL) Date Value 09/11/2017 17 Anion Gap (mmol/L) Date Value 09/11/2017 15 Calcium (mg/dL) Date Value 09/11/2017 9.2 Protein, Total (g/dL) Date Value 09/11/2017 7.6 Albumin (g/dL) Date Value 09/11/2017 4.6 Bilirubin, Total (mg/dL) Date Value 09/11/2017 0.7 Alkaline Phosphatase (U/L) Date Value 09/11/2017 66 AST (U/L) Date Value 09/11/2017 26 ALT (U/L) Date Value 09/11/2017 26 Hemoglobin (g/dL) Date Value 02/23/2017 16.8 Hematocrit (%) Date Value 02/23/2017 49.2 WBC (k/uL) Date Value 02/23/2017 8.74 Cholesterol, Total (mg/dL) Date Value 09/11/2017 231 HDL Cholesterol (mg/dL) Date Value 09/11/2017 37 LDL Cholesterol (mg/dL) Date Value 09/11/2017 149 Triglyceride (mg/dL) Date Value 09/11/2017 226 Hemoglobin A1C Date Value Ref Range Status 01/16/2018 7.9 (H) 4.3 - 5.6 % Final 09/11/2017 8.8 (H) 4.3 - 5.6 % Final 02/23/2017 8.5 (H) 4.3 - 5.6 % Final Comment: [place] [employer] guidelines indicate that patients with HgbA1c in the range 5.7-6.4% are at increased risk for development of diabetes, and intervention by lifestyle modification may be beneficial. HgbA1c greater or equal to 6.5% is considered diagnostic of diabetes. 08/02/2015 9.0 (H) 4.3 - 5.6 % Final Comment: [place] [employer] guidelines indicate that patients with HgbA1c in the range 5.7-6.4% are at increased risk for development of diabetes, and intervention by lifestyle modification may be beneficial. HgbA1c greater or equal to 6.5% is considered diagnostic of diabetes. 11/10/2014 8.7 (H) 4.0 - 6.0 % Final Comment: [place] [employer] guidelines indicate that patients with HgbA1c in the range 5.7-6.4% are at increased risk for development of diabetes, and intervention by lifestyle modification may be beneficial. HgbA1c greater or equal to 6.5% is considered diagnostic of diabetes. Ejection Fraction: No results found IMPRESSION: Mr. Hollingsworth is a 37 year old man presents for respiratory infection symptoms present for 2 weeks, uncontrolled blood pressure and symptoms of uncontrolled diabetes After my examination and review of data, I make the following recommendations. PLAN AND RECOMMENDATIONS: 1. Respiratory illness - ICD9: 519.9, ICD10: J98.9 (primary diagnosis) Take Delsym as needed for cough Use inhaler every 4-6 hours as needed for cough Start taking Augmentin - antibiotic - today one dose now and a second dose with dinner, take with food - AMOXICILLIN 875 MG-POTASSIUM CLAVULANATE 125 MG TABLET - ALBUTEROL SULFATE HFA 90 MCG/ACTUATION AEROSOL INHALER - DEXTROMETHORPHAN POLISTIREX ER 30 MG/5 ML ORAL SUSP EXT.RELEASE 12HR 2. Essential hypertension - ICD9: 401.9, ICD10: I10 Uncontrolled in office today - advised take one additional lisinopril today for a total of 20 mg Not orthostatic in office 3. Uncontrolled type 2 diabetes mellitus without complication, with long-term current use of insulin (HCC) - ICD9: 250.02, V58.67, ICD10: E11.65, Z79.4 - EDSON ISANICETO BMP Check blood sugar at home and call the office to speak with the nurse if blood sugar is running greater than 250 Unclear status of blood sugars, having symptoms of elevated blood sugars but has not been checking, reports eating per usual, polydipsia and polyuria. Reports has had nausea and vomiting. Reports taking medications unchanged from usual Provided with written information for sick days with diabetes mellitus. Advised go to ER for concerns about symptoms and/or not feeling improved with treatment - he did go to [facility] ER and was treated -- May 20, 2018 5:50 PM I suspect uncontrolled diabetes is present. Blood pressure is poorly controlled. Advised check lab work on the way out today if decide not to go to ER Advised to go to ER if develops chest pain, shortness of breath, or severe worsening of symptoms. Discussed risks, benefits, alternatives, and potential side effects of medications. Mr. Hollingsworth expressed understanding and agreed with the plan. Ray Cervantes APRN.CNS CNOV Observed: 05/20/2018 Status: COMPLETED Source: [place] 11:20 AM [facility] REPOSITORY Office Visit (INTMWS) DENVER HOLLINGSWORTH ([id number]) 1980 M Date Time Provider Department 05/20/18 11:20 AM RAY CERVANTES (MILLIE) IN[facility]WS During your visit today, we recorded the following information about you: Temperature Pulse Respiration Blood pressure 98.2 degrees 94/minute 16/minute 160/80 Weight 126.6 kg Ray Cervantes APRN.CNS 05/20/2018 5:50 PM Addendum OUTPATIENT VISIT DATE May 20, 2018 OUTPATIENT VISIT TYPE ESTABLISHED PRIMARY CARE PHYSICIAN: Michelle Brown MD CHIEF COMPLAINT: Patient presents with: URI History of Present Illness: Denver Hollingsworth is a 37 year old male who was last seen 04/15/2018. He has been seen in the past for ACTIVE PROBLEM LIST Attention Deficit Disorder Without Mention of Hyperactivity Obesity, Unspecified Diabetes Mellitus Type 2, Uncontrolled, Without Complications (Hcc) Essential Hypertension Unspecified Sleep Apnea Cavus Deformity of Foot, Acquired Cervicalgia Anxiety and Depression Mixed Hyperlipidemia Presented 4 days ago for ER follow up of foot pain after a cow stepped on him and upper respiratory infection symptoms. Noted to have viral URI. Provided with methylprednisolone dose pack and doxycyline to take if not improved in 2-3 days after visit. Since the last visit, he reports cough and upper respiratory symptoms for 2 weeks. He states that he has not begun doxycycline. Did take methylprednisolone dose pack for 3 daysthen discontinued. Reports having trouble sleeping at night due to cough. Somnolent during the day today. Productive cough. No known fever at home. Reports sore throat and hoarse voice.he is diabetic, reports he has not been checking blood sugars, reports polyuria and polydipsia. Reports has been drinking beverages with sugar. Reports he has been taking medications as ordered including diabetes and blood pressure medications. The ROS is otherwise negative. The patient's pmh, medications, allergies, and past visits are reviewed. PHYSICAL EXAM: BP 150/102 (BP Site: Left Arm, BP Position: Sitting, BP Cuff Size: Large Adult) Pulse 94 Temp 36.8 ?C (98.2 ?F) Resp 16 Wt 126.6 kg (279 lb) SpO2 96% BMI 35.81 kg/m? General appearance: tired/ill appearing, somnolent but easily arousable Head: Normocephalic Eyes: conjunctiva/corneas normal Ears: R TM - dull, L TM - dull Nose: clear rhinorrhea Oropharynx: moist without lesions Neck: supple and small, benign anterior cervical nodes bilaterally Heart: regular rate and rhythm, without murmur Lungs: clear to auscultation, good air exchange, diminished breath sounds, wheezing diffusely, rhonchi left, posterior lung field No recent hospital or ED visits. No new medical problems or medications. Able to obtain medications. No problems with taking medications or note side effects. PAST MEDICAL HISTORY Diagnosis Date - Anal fissure 03/03/2013 - Attention deficit disorder without mention of hyperactivity diagnosed in childhood - Back pain 02/12/2012 - Chronic post-traumatic headache - Closed fracture of dorsal (thoracic) vertebra without mention of spinal cord injury 04/03/2012 - Corns and callosities 12/05/2009 - Depressive disorder, not elsewhere classified 06/10/2012 - DIABETES MELLITUS TYPE II-UNCOMPL 08/30/2008 - Dysmetabolic syndrome X 07/21/2008 - Nonspecific abnormal results of liver function study 04/06/2005 Ferritin 225, HBsAg and Hep C negative in 5-09 U/S Fatty Liver - Pain in joint, lower leg 06/05/2012 - Unspecified essential hypertension 08/30/2008 PAST SURGICAL HISTORY Procedure Laterality Date - EGD W/O OR W/BRUSH/WASH 07/29/13 EGD - PAST SURGICAL HISTORY OF tooth extraction. FAMILY HISTORY Problem Relation Age of Onset - Diabetes Father - Hypertension Mother - COPD Mother - Coronary Artery Disease Father Bypass surgery and [place] 2012 - Diabetes Paternal Grandfather - Cancer Maternal Grandfather unknown - Heart Father - Heart Brother Social History Substance Use Topics - Smoking status: Current Every Day Smoker Packs/day: 0.50 Years: 15.00 Types: Cigarettes - Smokeless tobacco: Never Used Comment: 1/2 pack daily - Alcohol use No ALLERGIES: ALLERGIES Allergen Reactions - Metformin Diarrhea even on XR 500 mg once daily - Vicodin [Hydrocodon* GI Upset MEDICATIONS divalproex ER (DEPAKOTE ER) 500 mg 24 hr tablet Take 1 tab daily for 3 days, then increase to 1 tab twice a day for 3 days. Can increase every 3 days up to 4 times a day if needed. OLANZapine (ZYPREXA) 10 mg tablet Take 1 tablet by mouth daily at bedtime. lisinopril (ZESTRIL, PRINIVIL) 10 mg tablet Take 1 tablet by mouth once daily. citalopram (CELEXA) 40 mg tablet Take 1 tablet by mouth every morning. prazosin (MINIPRESS) 2 mg cap Take 1 capsule by mouth daily at bedtime. metFORMIN (GLUCOPHAGE) 500 mg tablet Take 2 tablets by mouth twice daily with meals. insulin glargine (LANTUS SOLOSTAR U-100 INSULIN) 100 unit/mL (3 mL) inpn Inject 25 Units subcutaneously daily at bedtime. PATIENT ASSISTANCE SANOFI NOVOLOG FLEXPEN U-100 INSULIN 100 unit/mL inpn Inject 10 Units subcutaneously three times daily with meals. Blood-Glucose Meter monitoring kit Glucose Meter of Choice (whatever is covered by insurance) - Kit - Dx: Type 2 DM - Uncontrolled E11.65 blood sugar diagnostic (BLOOD GLUCOSE TEST) test strip Choose brand covered by insurance. Test blood sugar(s) 3 times daily. Dx: Type 2 DM - Uncontrolled E11.65 Insulin: Yes Lancets lancets Choose lancets covered by insurance. Test blood sugar(s) 3 times daily. Dx: Type 2 DM - Uncontrolled E11.65 Insulin: Yes Insulin L[place]ell, Disposable, (BD ULTRA-FINE SAGRARIO PEN NEEDLES) 32 gauge x 5/32 ndle Use one needle for each dose. 4/day. Insulin Syringe-Needle U-100 0.3 mL 29 gauge x 1/2 syrg USE ONE SYRINGE FOR EACH INSULIN DOSE/ 2 PER DAY amoxicillin-clavulanic acid (AUGMENTIN) 875-125 mg per tablet Take 1 tablet by mouth twice daily for 10 days. Take with food albuterol HFA (PROVENTIL HFA, VENTOLIN HFA) 90 mcg/actuation inhaler Two puffs every 4 hours as need for wheezing, SOB. dextromethorphan (DELSYM) 30 mg/5 mL liquid Take 10 mL by mouth twice daily. for cough Reviewed chart, outside records, tests I personally interviewed, confirmed and edited the above information if obtained by others. TESTING: Glucose (mg/dL) Date Value 09/11/2017 254 Potassium (mmol/L) Date Value 09/11/2017 4.2 Sodium (mmol/L) Date Value 09/11/2017 137 Chloride (mmol/L) Date Value 09/11/2017 99 CO2 (mmol/L) Date Value 09/11/2017 23 Creatinine (mg/dL) Date Value 09/11/2017 0.89 BUN (mg/dL) Date Value 09/11/2017 17 Anion Gap (mmol/L) Date Value 09/11/2017 15 Calcium (mg/dL) Date Value 09/11/2017 9.2 Glucose (mg/dL) Date Value 09/11/2017 254 Potassium (mmol/L) Date Value 09/11/2017 4.2 Sodium (mmol/L) Date Value 09/11/2017 137 Chloride (mmol/L) Date Value 09/11/2017 99 CO2 (mmol/L) Date Value 09/11/2017 23 Creatinine (mg/dL) Date Value 09/11/2017 0.89 BUN (mg/dL) Date Value 09/11/2017 17 Anion Gap (mmol/L) Date Value 09/11/2017 15 Calcium (mg/dL) Date Value 09/11/2017 9.2 Protein, Total (g/dL) Date Value 09/11/2017 7.6 Albumin (g/dL) Date Value 09/11/2017 4.6 Bilirubin, Total (mg/dL) Date Value 09/11/2017 0.7 Alkaline Phosphatase (U/L) Date Value 09/11/2017 66 AST (U/L) Date Value 09/11/2017 26 ALT (U/L) Date Value 09/11/2017 26 Hemoglobin (g/dL) Date Value 02/23/2017 16.8 Hematocrit (%) Date Value 02/23/2017 49.2 WBC (k/uL) Date Value 02/23/2017 8.74 Cholesterol, Total (mg/dL) Date Value 09/11/2017 231 HDL Cholesterol (mg/dL) Date Value 09/11/2017 37 LDL Cholesterol (mg/dL) Date Value 09/11/2017 149 Triglyceride (mg/dL) Date Value 09/11/2017 226 Hemoglobin A1C Date Value Ref Range Status 01/16/2018 7.9 (H) 4.3 - 5.6 % Final 09/11/2017 8.8 (H) 4.3 - 5.6 % Final 02/23/2017 8.5 (H) 4.3 - 5.6 % Final Comment: [place] [employer] guidelines indicate that patients with HgbA1c in the range 5.7-6.4% are at increased risk for development of diabetes, and intervention by lifestyle modification may be beneficial. HgbA1c greater or equal to 6.5% is considered diagnostic of diabetes. 08/02/2015 9.0 (H) 4.3 - 5.6 % Final Comment: [place] [employer] guidelines indicate that patients with HgbA1c in the range 5.7-6.4% are at increased risk for development of diabetes, and intervention by lifestyle modification may be beneficial. HgbA1c greater or equal to 6.5% is considered diagnostic of diabetes. 11/10/2014 8.7 (H) 4.0 - 6.0 % Final Comment: [place] [employer] guidelines indicate that patients with HgbA1c in the range 5.7-6.4% are at increased risk for development of diabetes, and intervention by lifestyle modification may be beneficial. HgbA1c greater or equal to 6.5% is considered diagnostic of diabetes. Ejection Fraction: No results found IMPRESSION: Mr. Hollingsworth is a 37 year old man presents for respiratory infection symptoms present for 2 weeks, uncontrolled blood pressure and symptoms of uncontrolled diabetes After my examination and review of data, I make the following recommendations. PLAN AND RECOMMENDATIONS: 1. Respiratory illness - ICD9: 519.9, ICD10: J98.9 (primary diagnosis) Take Delsym as needed for cough Use inhaler every 4-6 hours as needed for cough Start taking Augmentin - antibiotic - today one dose now and a second dose with dinner, take with food - AMOXICILLIN 875 MG-POTASSIUM CLAVULANATE 125 MG TABLET - ALBUTEROL SULFATE HFA 90 MCG/ACTUATION AEROSOL INHALER - DEXTROMETHORPHAN POLISTIREX ER 30 MG/5 ML ORAL SUSP EXT.RELEASE 12HR 2. Essential hypertension - ICD9: 401.9, ICD10: I10 Uncontrolled in office today - advised take one additional lisinopril today for a total of 20 mg Not orthostatic in office 3. Uncontrolled type 2 diabetes mellitus without complication, with long-term current use of insulin (HCC) - ICD9: 250.02, V58.67, ICD10: E11.65, Z79.4 - EDSON ISTAT BMP Check blood sugar at home and call the office to speak with the nurse if blood sugar is running greater than 250 Unclear status of blood sugars, having symptoms of elevated blood sugars but has not been checking, reports eating per usual, polydipsia and polyuria. Reports has had nausea and vomiting. Reports taking medications unchanged from usual Provided with written information for sick days with diabetes mellitus. Advised go to ER for concerns about symptoms and/or not feeling improved with treatment - he did go to [facility] ER and was treated -- May 20, 2018 5:50 PM I suspect uncontrolled diabetes is present. Blood pressure is poorly controlled. Advised check lab work on the way out today if decide not to go to ER Advised to go to ER if develops chest pain, shortness of breath, or severe worsening of symptoms. Discussed risks, benefits, alternatives, and potential side effects of medications. Mr. Hollingsworth expressed understanding and agreed with the plan. Ray Cervantes APRN.MILLIE Cervantes APRN.CNS 05/20/2018 12:36 PM Addendum Check lab work on the way out today Go to ER if concerns about symptoms and/or not feeling improved with treatment Take one additional lisinopril today for a total of 20 mg Check blood sugar at home and call the office to speak with the nurse if blood sugar is running greater than 250 Take Delsym as needed for cough Use inhaler every 4-6 hours as needed for cough Start taking Augmentin - antibiotic - today one dose now and a second dose with dinner, take with food Referring Provider: SELF [[id number]] Allergies As of Date: 05/20/2018 Noted Allergy Reaction METFORMIN 03/25/2012 6 - Diarrhea Comments: even on XR 500 mg once daily VICODIN (HYDROCODONE-ACETAMINOPHE*02/24/2009 8 - GI Upset Date Reviewed: 05/20/2018 Reviewed by: Melina Garcia LPN - Fully Assessed Reason for Visit: URI [115] Primary Visit Diagnosis:Respiratory illness [J98.9] Other Visit Diagnoses:Essential hypertension [I10] Acute URI [J06.9] Uncontrolled type 2 diabetes mellitus without complication, with long-term current use of insulin (HCC) [E11.65, Z79.4] Order(s):EDSON [facility]ASMUSSEN [facility] [[id number]] Order #: [id number] FUTURE amoxicillin-clavulanic acid (AUGMENTIN) 875-125 mg per tabletTake 1 tablet by mouth twice daily for 10 days. Take with foodDisp: 20 tabletRfl: 0 albuterol HFA (PROVENTIL HFA, VENTOLIN HFA) 90 mcg/actuation inhalerTwo puffs every 4 hours as need for wheezing, SOB.Disp: 1 gRfl: 0 dextromethorphan (DELSYM) 30 mg/5 mL liquidTake 10 mL by mouth twice daily. for coughDisp: 148 mLRfl: 1 Prescriptions as of 05/20/2018 Sig: DIVALPROEX ER 500 MG TABLET,E* Take 1 tab daily for 3 days, * OLANZAPINE 10 MG TABLET Take 1 tablet by mouth daily * LISINOPRIL 10 MG TABLET Take 1 tablet by mouth once d* CITALOPRAM 40 MG TABLET Take 1 tablet by mouth every * PRAZOSIN 2 MG CAPSULE Take 1 capsule by mouth daily* METFORMIN 500 MG TABLET Take 2 tablets by mouth twice* INSULIN GLARGINE (U-100) 100 * Inject 25 Units subcutaneousl* NOVOLOG FLEXPEN U-100 INSULIN* Inject 10 Units subcutaneousl* BLOOD-GLUCOSE METER KIT Glucose Meter of Choice (what* BLOOD SUGAR DIAGNOSTIC STRIPS Choose brand covered by insur* LANCETS Choose lancets covered by ins* PEN NEEDLE, DIABETIC 32 GAUGE* Use one needle for each dose.* INSULIN SYRINGE U-100 WITH NE* USE ONE SYRINGE FOR EACH INSU* AMOXICILLIN 875 MG-POTASSIUM * Take 1 tablet by mouth twice * ALBUTEROL SULFATE HFA 90 MCG/* Two puffs every 4 hours as ne* DEXTROMETHORPHAN POLISTIREX E* Take 10 mL by mouth twice shiloh* Problem List As Of Date 05/20/2018 Noted Resolved 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 Diabetes mellitus type 2, uncontrolled, without*INVALID FOR* More... Essential hypertension [I10] INVALID FOR* SLEEP APNEA NOS [G47.30] INVALID FOR* More... 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] INVALID FOR* Cervicalgia [M54.2] INVALID FOR* Anxiety and depression [F41.9, F32.9] INVALID FOR* Mixed hyperlipidemia [E78.2] INVALID FOR* Other instructions from your clinician: Check lab work on the way out today Go to ER if concerns about symptoms and/or not feeling improved with treatment Take one additional lisinopril today for a total of 20 mg Check blood sugar at home and call the office to speak with the nurse if blood sugar is running greater than 250 Take Delsym as needed for cough Use inhaler every 4-6 hours as needed for cough Start taking Augmentin - antibiotic - today one dose now and a second dose with dinner, take with food Prescriptions ordered this encounter Disp Refills Start End AMOXICILLIN 875 MG-POTASSIUM CLAVULA* 20 t* 0 05/20/2018 05/30/2018 Route: ORAL Sig: Take 1 tablet by mouth twice daily for 10 days. Take with food ALBUTEROL SULFATE HFA 90 MCG/ACTUATI* 1 g 0 05/20/2018 Cmt: Hold on file until needed Sig: Two puffs every 4 hours as need for wheezing, SOB. DEXTROMETHORPHAN POLISTIREX ER 30 MG* 148 * 1 05/20/2018 Route: ORAL Sig: Take 10 mL by mouth twice daily. for cough Medications Discontinued During This Encounter methylPREDNISolone (MEDROL, TAI,) 4 * 1 Pa* 0 05/16/2018 05/20/2018 Sig: Follow dosing instructions, take with food. Disc: Reason for discontinue is not on file. doxycycline monohydrate (MONODOX) 10* 10 c* 0 05/18/2018 05/20/2018 Class: Print RX Route: ORAL Sig: Take 1 capsule by mouth twice daily for 5 days. Do not fill after 06/01/18 Patient not taking: Reported on 05/20/2018 Disc: Reason for discontinue is not on file. Letter Text When You Are Sick Type 2 Diabetes 08/30 Being sick puts a stress on your body. The blood sugar can rise when you get sick. Here are some general suggestions when you become ill. When you are sick, here are some suggestions: 1. Check the blood sugar up to four times per day. 2. If you are able to eat:: Increase the amount of sugar- free and caffeine-free fluids. 3. If you are NOT able to eat: alternate sugar-free fluids with sugared fluids each hour. 4. Know when to call the doctors office (see list). 5. Add small amounts of carbohydrates if possible. See the list below for suggestions. Carbohydrate Choices for Sick Days: Each has 15 gm of carbohydrate ? cup regular soft drink 6 saltine crackers 1 slice toast 1 cup soup with noodles or rice ? cup sweetened jello 1 popsicle ? cup ice cream or frozen yogurt 1 tablespoon of honey or sugar ? cup sherbet Call the doctors office when? Most of your readings are over 250 mg/dl for more than 2 days in a row If unable to hold down food or fluids If you have persistent diarrhea For a fever of 101 degrees or higher For any questions or concerns Encounter Status:Closed by RAY DEVI on 05/20/18 PROGRESS Observed: 05/16/2018 Status: COMPLETED Source: [place] 3:03 PM [facility] HNO ID: [id number] Author: Cesilia (Tanja) Branden Service: (none) Author Type: Nurse Practitioner Type: Progress Notes Filed: 05/16/2018 3:29 PM Note Text: CC/HPI In follow-up of hospitalization, Denver Hollingsworth is a 37 year old male with the chief complaint of [place] ER follow up from 05/14/18. Patient presented to the ER x2 days ago for complaints of cough for several days and left lower extremity pain after a cow stepped on him. Patient had reported a temp of 102 degrees for which he took leftover doxycycline he had that did not help. Pain to lower extremity was rated 10/10. Chest Xray and Left Tib/Fib XR were unremarkable. Patient was given Tessalon Perles and albuterol inhaler and discharged home. Diagnosed with left leg contusion and viral URI. Today he presents with continued URI symptoms. States he is not worried about his foot. Denver Hollingsworth is a 37 year old male who presents with complaint of URI, sore throat severe-hard to swallow, cough- dry and nonproductive, fatigue and fever tmax of 102 degrees for 10 days. He denies headache, ear pain, rash, nausea, vomiting and diarrhea. Treatments tried include Albuterol with no relief of symptoms. I have reviewed the patient?s last hospital course including diagnostic testing performed during this hospitalization, their discharge medications, and my assessment and plan with the patient and any family members present at today?s visit. PAST MEDICAL HISTORY: Reviewed and updated ALLERGIES: Reviewed and updated MEDICATIONS: Reviewed and updated SOCIAL HISTORY: Reviewed and updated FAMILY HISTORY: Reviewed and updated REVIEW OF SYSTEMS GENERAL: Fatigue HEENT: Negative for frequent or significant headaches, SEE HPI RESPIRATORY: Cough; dry, Wheezing CARDIOVASCULAR: Negative for chest pain, leg swelling, hypertension, CHF or palpitations All other systems reviewed and negative, other than HPI. PHYSICAL EXAMINATION BP 134/82 Pulse 105 Temp (Src) 97.3 (Temporal Artery) Resp 16 Wt 278 lb (126.1kg) SpO2 95% General appearance: well appearing, alert, in no acute distress and well-hydrated, well nourished, motor and sensory appear to be normal. Patient using cell phone during exam interview Head: Normocephalic Eyes: conjunctiva/corneas normal, wears glasses Ears: R TM - clear with good landmarks, L TM - clear with good landmarks Nose: clear rhinorrhea Oropharynx: moist without lesions, mild erythema, teeth in good repair Neck: supple and no adenopathy Lungs: lungs clear, diminished +cough dry cough no wheezing or rhonchi Heart: RRR without murmur, gallop, or rubs. No ectopy 1. I have reviewed the patient record including associated test results during the last hospitalization Yes 2. I have reviewed Lab test Yes 3. I have reviewed Radiology test Yes 4. I reviewed assessment/plan with the patient/family member Yes ASSESSMENT/PLAN: 1. Viral URI - ICD9: 465.9, ICD10: J06.9 - Discussed viral etiology and rationale for treatment. - Symptomatic treatment with prn analgesia - Supportive care with fluids and rest - The patient may also use OTC cough and cold meds as needed, warm salt water gargles, throat lozenges and/or OTC throat spray as needed and nasal saline gtts and suction prn. - METHYLPREDNISOLONE 4 MG TABLETS IN A DOSE PACK - Encouraged patient to fill prescription for Tessalon Perles prescribed in ER - Prescription for doxycycline provided, patient may fill in 2-3 days if no symptom improvement. Cesilia Otero APRN.MAIL TELLER May 16, 2018 3:03 PM CNOV Observed: 05/16/2018 Status: COMPLETED Source: [place] 2:40 PM [facility] REPOSITORY Office Visit ([facility]) DENVER HOLLINGSWORTH ([id number]) 1980 M Date Time Provider Department 05/16/18 2:40 PM CESILIA OTERO (MAIL TELLER) IN[facility] During your visit today, we recorded the following information about you: Temperature Pulse Respiration Blood pressure 97.3 degrees 105/minute 16/minute 134/82 Weight 126.1 kg Cesilia Otero APRN.CNP 05/16/2018 3:29 PM Signed CC/HPI In follow-up of hospitalization, Denver Hollingsworth is a 37 year old male with the chief complaint of [place] ER follow up from 05/14/18. Patient presented to the ER x2 days ago for complaints of cough for several days and left lower extremity pain after a cow stepped on him. Patient had reported a temp of 102 degrees for which he took leftover doxycycline he had that did not help. Pain to lower extremity was rated 10/10. Chest Xray and Left Tib/Fib XR were unremarkable. Patient was given Tessalon Perles and albuterol inhaler and discharged home. Diagnosed with left leg contusion and viral URI. Today he presents with continued URI symptoms. States he is not worried about his foot. Denver Hollingsworth is a 37 year old male who presents with complaint of URI, sore throat severe-hard to swallow, cough- dry and nonproductive, fatigue and fever tmax of 102 degrees for 10 days. He denies headache, ear pain, rash, nausea, vomiting and diarrhea. Treatments tried include Albuterol with no relief of symptoms. I have reviewed the patient?s last hospital course including diagnostic testing performed during this hospitalization, their discharge medications, and my assessment and plan with the patient and any family members present at today?s visit. PAST MEDICAL HISTORY: Reviewed and updated ALLERGIES: Reviewed and updated MEDICATIONS: Reviewed and updated SOCIAL HISTORY: Reviewed and updated FAMILY HISTORY: Reviewed and updated REVIEW OF SYSTEMS GENERAL: Fatigue HEENT: Negative for frequent or significant headaches, SEE HPI RESPIRATORY: Cough; dry, Wheezing CARDIOVASCULAR: Negative for chest pain, leg swelling, hypertension, CHF or palpitations All other systems reviewed and negative, other than HPI. PHYSICAL EXAMINATION BP 134/82 Pulse 105 Temp (Src) 97.3 (Temporal Artery) Resp 16 Wt 278 lb (126.1kg) SpO2 95% General appearance: well appearing, alert, in no acute distress and well-hydrated, well nourished, motor and sensory appear to be normal. Patient using cell phone during exam interview Head: Normocephalic Eyes: conjunctiva/corneas normal, wears glasses Ears: R TM - clear with good landmarks, L TM - clear with good landmarks Nose: clear rhinorrhea Oropharynx: moist without lesions, mild erythema, teeth in good repair Neck: supple and no adenopathy Lungs: lungs clear, diminished +cough dry cough no wheezing or rhonchi Heart: RRR without murmur, gallop, or rubs. No ectopy 1. I have reviewed the patient record including associated test results during the last hospitalization Yes 2. I have reviewed Lab test Yes 3. I have reviewed Radiology test Yes 4. I reviewed assessment/plan with the patient/family member Yes ASSESSMENT/PLAN: 1. Viral URI - ICD9: 465.9, ICD10: J06.9 - Discussed viral etiology and rationale for treatment. - Symptomatic treatment with prn analgesia - Supportive care with fluids and rest - The patient may also use OTC cough and cold meds as needed, warm salt water gargles, throat lozenges and/or OTC throat spray as needed and nasal saline gtts and suction prn. - METHYLPREDNISOLONE 4 MG TABLETS IN A DOSE PACK - Encouraged patient to fill prescription for Tessalon Perles prescribed in ER - Prescription for doxycycline provided, patient may fill in 2-3 days if no symptom improvement. Cesilia Otero APRN.MAIL TELLER May 16, 2018 3:03 PM Referring Provider: SELF [[id number]] Allergies As of Date: 05/16/2018 Noted Allergy Reaction METFORMIN 03/25/2012 6 - Diarrhea Comments: even on XR 500 mg once daily VICODIN (HYDROCODONE-ACETAMINOPHE*02/24/2009 8 - GI Upset Date Reviewed: 05/16/2018 Reviewed by: Selene Reyes Ma - Fully Assessed Reason for Visit: Cough [28] Cmt: Deep chest cough x 10 days, fever, excessive fatigue Reason For Visit History Recorded Primary Visit Diagnosis:Viral URI [J06.9] Order(s):methylPREDNISolone (MEDROL, TAI,) 4 mg Dose-PackFollow dosing instructions, take with food.Disp: 1 PackageRfl: 0 [START ON 05/18/2018] doxycycline monohydrate (MONODOX) 100 mg capsuleTake 1 capsule by mouth twice daily for 5 days. Do not fill after 06/01/18Disp: 10 capsuleRfl: 0 Prescriptions as of 05/16/2018 Sig: METHYLPREDNISOLONE 4 MG TABLE* Follow dosing instructions, t* DOXYCYCLINE MONOHYDRATE 100 M* Take 1 capsule by mouth twice* DIVALPROEX ER 500 MG TABLET,E* Take 1 tab daily for 3 days, * OLANZAPINE 10 MG TABLET Take 1 tablet by mouth daily * LISINOPRIL 10 MG TABLET Take 1 tablet by mouth once d* CITALOPRAM 40 MG TABLET Take 1 tablet by mouth every * PRAZOSIN 2 MG CAPSULE Take 1 capsule by mouth daily* METFORMIN 500 MG TABLET Take 2 tablets by mouth twice* INSULIN GLARGINE (U-100) 100 * Inject 25 Units subcutaneousl* NOVOLOG FLEXPEN U-100 INSULIN* Inject 10 Units subcutaneousl* BLOOD-GLUCOSE METER KIT Glucose Meter of Choice (what* BLOOD SUGAR DIAGNOSTIC STRIPS Choose brand covered by insur* LANCETS Choose lancets covered by ins* PEN NEEDLE, DIABETIC 32 GAUGE* Use one needle for each dose.* INSULIN SYRINGE U-100 WITH NE* USE ONE SYRINGE FOR EACH INSU* Problem List As Of Date 05/16/2018 Noted Resolved 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 Diabetes mellitus type 2, uncontrolled, without*INVALID FOR* More... Essential hypertension [I10] INVALID FOR* SLEEP APNEA NOS [G47.30] INVALID FOR* More... 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 DOXYCYCLINE MONOHYDRATE 100 MG CAPSU* 10 c* 0 05/18/2018 05/23/2018 Class: Print RX Route: ORAL Sig: Take 1 capsule by mouth twice daily for 5 days. Do not fill after 06/01/18 Encounter Status:Closed by BRANDEN FREGOSO CESILIA on 05/16/18 XR CHEST 2 VIEWS Observed: 05/14/2018 Status: F Source: [facility] 1:29 AM [facility] REPOSITORY ORIGINAL Clinical history: Fever. Cough. COMPARISON: None. PA and lateral radiographs of the chest were obtained. The heart is normal in size and configuration. The mediastinum and hilar structures are normal. The lungs are clear, and the vascularity is normal. The pleural surfaces, diaphragms, and bony structures are unremarkable. IMPRESSION: Normal chest. Interpreted By: Selvin Warren MD Preliminary Report By: Selvin Warren MD Electronically Signed By: Selvin Warren MD Dictated Date: 05/14/2018 1:31:26 AM Prelim Date: 05/14/2018 1:31:26 AM Sign Date: 05/14/2018 1:31:58 AM XR TIBIA/FIBULA 2 VIEWS Observed: 05/14/2018 Status: F Source: [facility] 1:28 AM [facility] REPOSITORY ORIGINAL XR TIBIA/FIBULA 2 VIEWS LEFT CLINICAL STATEMENT: injury. COMPARISON: None FINDINGS: No acute fracture or dislocation is identified. There is no radiopaque foreign body. IMPRESSION: No acute fracture or dislocation. Interpreted By: Selvin Warren MD Preliminary Report By: Selvin Warren MD Electronically Signed By: Selvin Warren MD Dictated Date: 05/14/2018 1:31:11 AM Prelim Date: 05/14/2018 1:31:11 AM Sign Date: 05/14/2018 1:31:16 AM FITO Observed: 04/11/2018 Status: COMPLETED Source: [place] 12:00 AM [facility] REPOSITORY Telephone ([facility]) DENVER HOLLINGSWORTH ([id number]) 1980 M Date Time Provider Department 04/11/18 UNA (PHARMACIST)KYE [facility] During your visit today, we recorded the following information about you: NATHALIE TINAJERO 04/11/2018 9:48 AM Signed Contacted patient in attempt to reschedule missed appointment on 04/10, left message with who plans to call office on Saturday to reschedule appt. Kye Meade PharmD, [facility] Primary Care Clinical Pharmacist [facility] KYE MEADE PHARMACIST 04/30/2018 10:26 AM Signed Contacted patient in attempt to reschedule missed appointment on 04/10 Unable to reach patient or LMOM Kye Meade PharmD, [facility] Primary Care Clinical Pharmacist [facility] KYE MEADE PHARMACIST 05/27/2018 11:56 AM Signed Contacted patient in attempt to reschedule missed appointment on 04/10 Unable to reach patient or LMOM 3rd attempt calling patient to reschedule PharmD appt Has appt with PCP on 06/03 - will route to PCP to inform her that patient has not returned for f/u and to ask patient if he still has interest in meeting with PharmD for DM mngt Kye Meade PharmD, [facility] Primary Care Clinical Pharmac[facility] Allergies As of Date: 04/11/2018 Noted Allergy Reaction METFORMIN 03/25/2012 6 - Diarrhea Comments: even on XR 500 mg once daily VICODIN (HYDROCODONE-ACETAMINOPHE*02/24/2009 8 - GI Upset Date Reviewed: 04/03/2018 Reviewed by: Debi Pérez Violin Maker Hand - Fully Assessed Reason for Visit: Missed Appointment [1304] Prescriptions as of 04/11/2018 Sig: DIVALPROEX ER 500 MG TABLET,E* Take 1 tab daily for 3 days, * OLANZAPINE 10 MG TABLET Take 1 tablet by mouth daily * LISINOPRIL 10 MG TABLET Take 1 tablet by mouth once d* CITALOPRAM 40 MG TABLET Take 1 tablet by mouth every * PRAZOSIN 2 MG CAPSULE Take 1 capsule by mouth daily* METFORMIN 500 MG TABLET Take 2 tablets by mouth twice* INSULIN GLARGINE (U-100) 100 * Inject 25 Units subcutaneousl* NOVOLOG FLEXPEN U-100 INSULIN* Inject 10 Units subcutaneousl* BLOOD-GLUCOSE METER KIT Glucose Meter of Choice (what* BLOOD SUGAR DIAGNOSTIC STRIPS Choose brand covered by insur* LANCETS Choose lancets covered by ins* PEN NEEDLE, DIABETIC 32 GAUGE* Use one needle for each dose.* INSULIN SYRINGE U-100 WITH NE* USE ONE SYRINGE FOR EACH INSU* Problem List As Of Date 04/11/2018 Noted Resolved 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 Diabetes mellitus type 2, uncontrolled, without*INVALID FOR* More... Essential hypertension [I10] INVALID FOR* SLEEP APNEA NOS [G47.30] INVALID FOR* More... 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] INVALID FOR* Cervicalgia [M54.2] INVALID FOR* Anxiety and depression [F41.9, F32.9] INVALID FOR* Mixed hyperlipidemia [E78.2] INVALID FOR* Encounter Status:Closed by UNA (PHARMACIST)KYE on 04/11/18 PROGRESS Observed: 04/03/2018 Status: COMPLETED Source: [place] 8:16 AM [facility] REPOSITORY HNO ID: [id number] Author: Hope (Tanja) Older Service: (none) Author Type: Nurse Practitioner Type: Progress Notes Filed: 04/03/2018 9:25 AM Note Text: CC: Patient presents with: Medication Follow-up HPI Denver Hollingsworth is a 37 year old male who presents today for medication follow-up. Requesting refills on Depakote and Zyprexa. Stopped taking two months ago because they were making him feel too drowsy. Patient called office on 03/24 requesting refills for the following reason per phone encounter: Right now, he and his are going through a legal separation/divorce and he is feeling very angry. States 'I've recently tried twice to kill the dude my is dating'. He did not give details but re-stated 'I want to kill the flynn my is dating'. He feels the medication will help with these feelings. He is not feeling homicidal or suicidal today. He states he took the week off from work to cope with his issues. He was advised appointment at crisis center or same day appointment with STOCK ROOM MANAGER, declined both. Called in late that same day to report issues last week had resolved and no longer felt homicidal but still wanted refills. Today patient reports no further issues with SI or HI. Issues a couple weeks prior were due to temporary freak out and has calmed down since. [place] much better when he was taking medications, would like refilled. [facility]. Will also be establishing with psychiatrist. 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 - Back pain 02/12/2012 - Chronic post-traumatic headache - Closed fracture of dorsal (thoracic) vertebra without mention of spinal cord injury 04/03/2012 - Corns and callosities 12/05/2009 - Depressive disorder, not elsewhere classified 06/10/2012 - DIABETES MELLITUS TYPE II-UNCOMPL 08/30/2008 - Dysmetabolic syndrome X 07/21/2008 - Nonspecific abnormal results of liver function study 04/06/2005 Ferritin 225, HBsAg and Hep C negative in 5- U/S Fatty Liver - Pain in joint, lower leg 06/05/2012 - Unspecified essential hypertension 08/30/2008 PAST SURGICAL HISTORY Procedure Laterality Date - EGD W/O OR W/BRUSH/WASH 07/29/13 EGD - PAST SURGICAL HISTORY OF tooth extraction. ALLERGIES Metformin; Vicodin [Hydrocodone-Acetaminophen] MEDICATIONS lisinopril (ZESTRIL, PRINIVIL) 10 mg tablet Take 1 tablet by mouth once daily. citalopram (CELEXA) 40 mg tablet Take 1 tablet by mouth every morning. prazosin (MINIPRESS) 2 mg cap Take 1 capsule by mouth daily at bedtime. divalproex ER (DEPAKOTE ER) 500 mg 24 hr tablet Take 4 tablets by mouth daily at bedtime. OLANZapine (ZYPREXA) 10 mg tablet Take 1 tablet by mouth daily at bedtime. metFORMIN (GLUCOPHAGE) 500 mg tablet Take 2 tablets by mouth twice daily with meals. insulin glargine (LANTUS SOLOSTAR U-100 INSULIN) 100 unit/mL (3 mL) inpn Inject 25 Units subcutaneously daily at bedtime. PATIENT ASSISTANCE SANOFI NOVOLOG FLEXPEN U-100 INSULIN 100 unit/mL inpn Inject 10 Units subcutaneously three times daily with meals. Blood-Glucose Meter monitoring kit Glucose Meter of Choice (whatever is covered by insurance) - Kit - Dx: Type 2 DM - Uncontrolled E11.65 blood sugar diagnostic (BLOOD GLUCOSE TEST) test strip Choose brand covered by insurance. Test blood sugar(s) 3 times daily. Dx: Type 2 DM - Uncontrolled E11.65 Insulin: Yes Lancets lancets Choose lancets covered by insurance. Test blood sugar(s) 3 times daily. Dx: Type 2 DM - Uncontrolled E11.65 Insulin: Yes Insulin [place], Disposable, (BD ULTRA-FINE [place] PEN NEEDLES) 32 gauge x 5/32 ndle Use one needle for each dose. 4/day. Insulin Syringe-Needle U-100 0.3 mL 29 gauge x 1/2 syrg USE ONE SYRINGE FOR EACH INSULIN DOSE/ 2 PER DAY FAMILY HISTORY Problem Relation Age of Onset - Diabetes Father - Hypertension Mother - COPD Mother - Coronary Artery Disease Father Bypass surgery and [place] 2012 - Diabetes Paternal Grandfather - Cancer Maternal Grandfather unknown - Heart Father - Heart Brother Social History Substance Use Topics - Smoking status: Current Every Day Smoker Packs/day: 0.50 Years: 15.00 Types: Cigarettes - Smokeless tobacco: Never Used Comment: 1/2 pack daily - Alcohol use No PHYSICAL EXAM BP 109/80 Pulse 91 Temp (!) 35.8 ?C (96.4 ?F) (Temporal Artery) Resp 16 Wt 123.4 kg (272 lb) SpO2 99% BMI 34.91 kg/m? Appearance: well dressed well groomed, cooperative and pleasant Behavior: good eye contact and tense Speech: fluent and coherent Mood: modulated Affect: constricted Insight: fair Judgment: fair ASSESSMENT/PLAN: 1. Mood disorder (HCC) - ICD9: 296.90, ICD10: F39 After speaking with patient does not seem to be a threat to himself or others. Agree that he should resume taking medications. Discussed importance of adherence and follow-up with psychiatrist for medication management. - Start Zyprexa at 10 mg as previously prescribed. Will start Depakote at 500 mg daily and increase up to 4 times a day if needed. Advised patient on dosing regimen and preferable to be on lowest effective dose, hopefully avoiding side effects at a lower dose than previous - Follow-up with PCP as scheduled - He has appointment for crisis center if needed, encouraged thoughts of harming himself or others recurs. Prescription instructions reviewed with patient as applicable. Potential red flag symptoms discussed with the patient. Reviewed appropriate action plan to take if red flag symptoms occur. Patient agreeable to treatment plan. During this patient visit I have spent approximately 20 minutes in counseling regarding treatment options, medications and coordinating care. Hope Garcia APRN.MAIL TELLER CNOV Observed: 04/03/2018 Status: COMPLETED Source: [place] 8:00 AM [facility] REPOSITORY Office Visit (INT[facility]) DENVER HOLLINGSWORTH ([id number]) 1980 M Date Time Provider Department 04/03/18 8:00 AM [facility] (TANJA) [facility] During your visit today, we recorded the following information about you: Temperature Pulse Respiration Blood pressure 96.4 degrees 91/minute 16/minute 109/80 Weight 123.4 kg Hope Garcia APRN.CNP 04/03/2018 9:25 AM Signed CC: Patient presents with: Medication Follow-up HPI Denver Hollingsworth is a 37 year old male who presents today for medication follow-up. Requesting refills on Depakote and Zyprexa. Stopped taking two months ago because they were making him feel too drowsy. Patient called office on 03/24 requesting refills for the following reason per phone encounter: Right now, he and his are going through a legal separation/divorce and he is feeling very angry. States 'I've recently tried twice to kill the dude my is dating'. He did not give details but re-stated 'I want to kill the flynn my is dating'. He feels the medication will help with these feelings. He is not feeling homicidal or suicidal today. He states he took the week off from work to cope with his issues. He was advised appointment at crisis center or same day appointment with STOCK ROOM MANAGER, declined both. Called in late that same day to report issues last week had resolved and no longer felt homicidal but still wanted refills. Today patient reports no further issues with SI or HI. Issues a couple weeks prior were due to temporary freak out and has calmed down since. [place] much better when he was taking medications, would like refilled. Appointment [facility] on [facility]. Will also be establishing with psychiatrist. 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 - Back pain 02/12/2012 - Chronic post-traumatic headache - Closed fracture of dorsal (thoracic) vertebra without mention of spinal cord injury 04/03/2012 - Corns and callosities 12/05/2009 - Depressive disorder, not elsewhere classified 06/10/2012 - DIABETES MELLITUS TYPE II-UNCOMPL 08/30/2008 - Dysmetabolic syndrome X 07/21/2008 - Nonspecific abnormal results of liver function study 04/06/2005 Ferritin 225, HBsAg and Hep C negative in 10-30 U/S Fatty Liver - Pain in joint, lower leg 06/05/2012 - Unspecified essential hypertension 08/30/2008 PAST SURGICAL HISTORY Procedure Laterality Date - EGD W/O OR W/BRUSH/WASH 07/29/13 EGD - PAST SURGICAL HISTORY OF tooth extraction. ALLERGIES Metformin; Vicodin [Hydrocodone-Acetaminophen] MEDICATIONS lisinopril (ZESTRIL, PRINIVIL) 10 mg tablet Take 1 tablet by mouth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 Our records indicate that you may be due for a diabetic eye exam. If you have had a diabetic eye exam within the last year, please have your records sent to us so that we may update your medical records. There is a medical records of release of information included in this letter. Please take the release to your eye doctor for future appointments to have your records forwarded to us. Important facts about diabetic eye exams Diabetic retinal exams should be done yearly for all patients with a diagnosis of diabetes. Risks such as diabetic retinopathy can be reduced with blood glucose control and early detection of potential problems. Diabetic retinopathy is damage to the small blood vessels in the retina that can lead to blindness Thank you, Michelle Kang MD Letter [facility] Medicine [facility] [address] [place] [address] Office: [phone] Michelle Kang MD REQUEST FOR EYE EXAM FINDINGS July 13, 2016 Dear eye healthcare sales representative, Thank you for coordinating eye care for our mutual patient, Denver Hollingsworth (1980). Please fax this letter back to me with the most appropriate response selected below. Please allow the patient's signature to serve as permission to share your findings. Sincerely, Michelle Kang MD Patient Signature Date Date of eye exam: Findings Both Eyes Right Left No Retinopathy Detected Non Proliferative Retinopathy Mild Moderate Severe Proliferative Retinopathy Macular Edema Further testing and/or treatment indicated Comments: Patient is to return: Encounter Status:Closed by CORINNA LAIRD CMA on 02/06/18 TSH Collected: 01/16/2018 Status: F Source: [place] 2:40 PM [facility] REPOSITORY TYPE CODE TESTS RESULT OUT OF RANGE REFERENCE UNITS LAB TSH 0.400-5.500 uU/mL TSH 1.290 Performed By: #### TSH, HBA1C #### [facility] [employer] [address] [id number] HEMOGLOBIN A1C Collected: 01/16/2018 Status: F Source: [place] 2:40 PM [facility] REPOSITORY TYPE CODE TESTS RESULT OUT OF REFERENCE UNITS RANGE LAB HGBA1C 4.3-5.6 % High Hemoglobin A1c 7.9 LAB HBA0 mg/dL Est. Average Glucose 180 Result Comment: eAG: (Estimated average glucose) is a calculated value from HgbA1c and is sales representative graphic art of the average blood glucose level in the last 2-3 month period. Performed By: #### TSH, HBA1C #### [facility] [employer] [address] [id number] PROGRESS Observed: 01/16/2018 Status: COMPLETED Source: [place] 2:25 PM [facility] REPOSITORY O ID: [id number] Author: Ray (Medical Librarian) Billy Service: (none) Author Type: Nurse Specialist Type: Progress Notes Filed: 01/16/2018 2:42 PM Note Text: OUTPATIENT VISIT DATE January 16, 2018 OUTPATIENT VISIT TYPE ESTABLISHED PRIMARY CARE PHYSICIAN: Michelle Brown MD CHIEF COMPLAINT: Patient presents with: F/U 3 Month History of Present Illness: Denver Hollingsworth is a 37 year old male who was last seen 08/2017. He has been seen in the past for ACTIVE PROBLEM LIST Attention Deficit Disorder Without Mention of Hyperactivity Obesity, Unspecified Diabetes Mellitus Type 2, Uncontrolled, Without Complications (Hcc) Essential Hypertension Unspecified Sleep Apnea Cavus Deformity of Foot, Acquired Cervicalgia Anxiety and Depression Mixed Hyperlipidemia Since the last visit, he states that he is feeling a bit tired. Notes that he has darkening of his vision sometimes. Is taking long acting insulin and metformin as ordered, but has stopped checking blood sugars due to broken meter and is not taking short acting insulin. Without report of excessive thirst or increased frequency of urination, chest pain or dyspnea , numbness, tingling or pain in extremities, new or unusual visual symptoms, low sugar/hypoglycemic reactions, weight loss/gain, lightheadedness/dizziness and bowel changes/loose stools. Patient's last HgA1C was Hemoglobin A1C (%) Date Value 09/11/2017 8.8 02/23/2017 8.5 ) Recently completed drug rehabilitation in [place], is not seeing a mental health provider now, is feeling increased anxiety. On 20 mg citalopram daily. HTN: Without report of headache, chest pain, palpitations, dyspnea, peripheral edema, claudication symptoms, orthopnea and fatigue. No change in ability to complete daily tasks, walk a flat surface, take stairs.Last 3 Encounter BP Readings: Date: BP: 01/16/2018 104/62 09/11/2017 130/82 06/28/2017 140/90 No recent hospital or ED visits. No new medical problems or medications. Able to obtain medications. No problems with taking medications or note side effects. PAST MEDICAL HISTORY Diagnosis Date - Anal fissure 03/03/2013 - Attention deficit disorder without mention of hyperactivity diagnosed in childhood - Back pain 02/12/2012 - Chronic post-traumatic headache - Closed fracture of dorsal (thoracic) vertebra without mention of spinal cord injury 04/03/2012 - Corns and callosities 12/05/2009 - Depressive disorder, not elsewhere classified 06/10/2012 - DIABETES MELLITUS TYPE II-UNCOMPL 08/30/2008 - Dysmetabolic syndrome X 07/21/2008 - Nonspecific abnormal results of liver function study 04/06/2005 Ferritin 225, HBsAg and Hep C negative in 5-09 U/S Fatty Liver - Pain in joint, lower leg 06/05/2012 - Unspecified essential hypertension 08/30/2008 PAST SURGICAL HISTORY Procedure Laterality Date - EGD W/O OR W/BRUSH/WASH 07/29/13 EGD - PAST SURGICAL HISTORY OF tooth extraction. FAMILY HISTORY Problem Relation Age of Onset - Diabetes Father - Hypertension Mother - COPD Mother - Coronary Artery Disease Father Bypass surgery and [place] 2013 - Diabetes Paternal Grandfather - Cancer Maternal Grandfather unknown - Heart Father - Heart Brother Social History Substance Use Topics - Smoking status: Current Every Day Smoker Packs/day: 0.50 Years: 15.00 Types: Cigarettes - Smokeless tobacco: Never Used Comment: 1/2 pack daily - Alcohol use No ALLERGIES: ALLERGIES Allergen Reactions - Metformin Diarrhea even on XR 500 mg once daily - Vicodin [Hydrocodon* GI Upset MEDICATIONS lisinopril (ZESTRIL, PRINIVIL) 10 mg tablet Take 1 tablet by mouth once daily. citalopram (CELEXA) 40 mg tablet Take 1 tablet by mouth every morning. prazosin (MINIPRESS) 2 mg cap Take 1 capsule by mouth daily at bedtime. divalproex ER (DEPAKOTE ER) 500 mg 24 hr tablet Take 4 tablets by mouth daily at bedtime. OLANZapine (ZYPREXA) 10 mg tablet Take 1 tablet by mouth daily at bedtime. metFORMIN (GLUCOPHAGE) 500 mg tablet Take 2 tablets by mouth twice daily with meals. insulin glargine (LANTUS SOLOSTAR U-100 INSULIN) 100 unit/mL (3 mL) inpn Inject 25 Units subcutaneously daily at bedtime. PATIENT ASSISTANCE SANOFI NOVOLOG FLEXPEN U-100 INSULIN 100 unit/mL inpn Inject 10 Units subcutaneously three times daily with meals. Blood-Glucose Meter monitoring kit Glucose Meter of Choice (whatever is covered by insurance) - Kit - Dx: Type 2 DM - Uncontrolled E11.65 blood sugar diagnostic (BLOOD GLUCOSE TEST) test strip Choose brand covered by insurance. Test blood sugar(s) 3 times daily. Dx: Type 2 DM - Uncontrolled E11.65 Insulin: Yes Lancets lancets Choose lancets covered by insurance. Test blood sugar(s) 3 times daily. Dx: Type 2 DM - Uncontrolled E11.65 Insulin: Yes Insulin L[place]ell, Disposable, (BD ULTRA-FINE SAGRARIO PEN NEEDLES) 32 gauge x 5/32 ndle Use one needle for each dose. 4/day. Insulin Syringe-Needle U-100 0.3 mL 29 gauge x 1/2 syrg USE ONE SYRINGE FOR EACH INSULIN DOSE/ 2 PER DAY REVIEW OF SYSTEMS: GENERAL: Negative for: Weight loss or gain, Fever or Chills, Weakness and Sleep difficulties. Physical Examination: BP 104/62 Pulse 84 Resp 16 Wt 274 lb (124.3kg) BP w/Orthostatic Vitals Date and Time Orthostatic BP Orthostatic Pulse BP Pulse BP Position BP Site BP Cuff Size 01/16/18 1340 -- -- 104/62 84 Sitting Left Arm Large Adult Peak Flow Date and Time PF Resp 01/16/18 1340 -- 16 General appearance: Well appearing, alert, in no acute distress, obese,well-hydrated . Skin: Skin color, texture, turgor normal, no suspicious rashes or lesions Neck: Supple, no adenopathy; thyroid symmetric, normal size, no bruits Lungs: Lungs clear to auscultation. No wheezing, rhonchi, rales Heart: RRR without murmur, gallop, or rubs Abdomen: Abdomen soft, non-tender. Bowel sounds normal. No masses, organomegaly Extremities: No edema, skin discoloration, clubbing or cyanosis. Good capillary refill. Musculoskeletal: . Muscular strength intact, No joint swelling, deformity, or tenderness Peripheral pulses: Normal Neuro: Gait normal. Sensation grossly intact. Reviewed chart, outside records, tests I personally interviewed, confirmed and edited the above information if obtained by others. TESTING: Glucose (mg/dL) Date Value 09/11/2017 254 Potassium (mmol/L) Date Value 09/11/2017 4.2 Sodium (mmol/L) Date Value 09/11/2017 137 Chloride (mmol/L) Date Value 09/11/2017 99 CO2 (mmol/L) Date Value 09/11/2017 23 Creatinine (mg/dL) Date Value 09/11/2017 0.89 BUN (mg/dL) Date Value 09/11/2017 17 Anion Gap (mmol/L) Date Value 09/11/2017 15 Calcium (mg/dL) Date Value 09/11/2017 9.2 Glucose (mg/dL) Date Value 09/11/2017 254 Potassium (mmol/L) Date Value 09/11/2017 4.2 Sodium (mmol/L) Date Value 09/11/2017 137 Chloride (mmol/L) Date Value 09/11/2017 99 CO2 (mmol/L) Date Value 09/11/2017 23 Creatinine (mg/dL) Date Value 09/11/2017 0.89 BUN (mg/dL) Date Value 09/11/2017 17 Anion Gap (mmol/L) Date Value 09/11/2017 15 Calcium (mg/dL) Date Value 09/11/2017 9.2 Protein, Total (g/dL) Date Value 09/11/2017 7.6 Albumin (g/dL) Date Value 09/11/2017 4.6 Bilirubin, Total (mg/dL) Date Value 09/11/2017 0.7 Alkaline Phosphatase (U/L) Date Value 09/11/2017 66 AST (U/L) Date Value 09/11/2017 26 ALT (U/L) Date Value 09/11/2017 26 Hemoglobin (g/dL) Date Value 02/23/2017 16.8 Hematocrit (%) Date Value 02/23/2017 49.2 WBC (k/uL) Date Value 02/23/2017 8.74 Cholesterol, Total (mg/dL) Date Value 09/11/2017 231 HDL Cholesterol (mg/dL) Date Value 09/11/2017 37 LDL Cholesterol (mg/dL) Date Value 09/11/2017 149 Triglyceride (mg/dL) Date Value 09/11/2017 226 Hemoglobin A1C Date Value Ref Range Status 09/11/2017 8.8 (H) 4.3 - 5.6 % Final 02/23/2017 8.5 (H) 4.3 - 5.6 % Final Comment: [place] [employer] guidelines indicate that patients with HgbA1c in the range 5.7-6.4% are at increased risk for development of diabetes, and intervention by lifestyle modification may be beneficial. HgbA1c greater or equal to 6.5% is considered diagnostic of diabetes. 08/02/2015 9.0 (H) 4.3 - 5.6 % Final Comment: [place] [employer] guidelines indicate that patients with HgbA1c in the range 5.7-6.4% are at increased risk for development of diabetes, and intervention by lifestyle modification may be beneficial. HgbA1c greater or equal to 6.5% is considered diagnostic of diabetes. 11/10/2014 8.7 (H) 4.0 - 6.0 % Final Comment: [place] [employer] guidelines indicate that patients with HgbA1c in the range 5.7-6.4% are at increased risk for development of diabetes, and intervention by lifestyle modification may be beneficial. HgbA1c greater or equal to 6.5% is considered diagnostic of diabetes. 02/11/2013 5.9 4.0 - 6.0 % Final Comment: [place] [employer] guidelines indicate that patients with HgbA1c in the range 5.7-6.4% are at increased risk for development of diabetes, and intervention by lifestyle modification may be beneficial. HgbA1c greater or equal to 6.5% is considered diagnostic of diabetes. Ejection Fraction: No results found IMPRESSION: Mr. Hollingsworth is a 37 year old man presents for routine follow up. After my examination and review of data, I make the following recommendations. PLAN AND RECOMMENDATIONS: 1. Uncontrolled type 2 diabetes mellitus without complication, with long-term current use of insulin (HCC) - ICD9: 250.02, V58.67, ICD10: E11.65, Z79.4 (primary diagnosis) poorly controlled - Continue current medications - Blood glucose monitoring - resume - Ophthalmology referral for eval/management of diabetic eye changes - Encouraged regular aerobic exercise and weight loss - Follow up in 3 months, sooner should any other issues arise. - BP goal of <130/80 - LDL goal of <100 2. Anxiety and depression - ICD9: 300.00, 311, ICD10: F41.9, F32.9 - CITALOPRAM 40 MG TABLET - CONSULT TO PSYCHIATRY 3. History of drug use - ICD9: 305.93, ICD10: Z87.898 - CONSULT TO PSYCHIATRY 4. Essential hypertension - ICD9: 401.9, ICD10: I10 - good control - Continue current medication(s) - Encouraged dietary sodium restriction/DASH diet - Recommended regular aerobic exercise. - Goal of BP <130/80 - LISINOPRIL 10 MG TABLET - PRAZOSIN 2 MG CAPSULE Advised to go to ER if develops chest pain, shortness of breath, or severe worsening of symptoms. Discussed risks, benefits, alternatives, and potential side effects of medications. Mr. Hollingsworth expressed understanding and agreed with the plan. Ray Cervantes APRN.MILLIE CNOV Observed: 01/16/2018 Status: COMPLETED Source: [place] 1:40 PM [facility] REPOSITORY Office Visit (INTMWS) DENVER HOLLINGSWORTH ([id number]) 1980 M Date Time Provider Department 01/16/18 1:40 PM RAY CERVANTES ([facility]) INTMWS During your visit today, we recorded the following information about you: Pulse Respiration Blood pressure Weight 84/minute 16/minute 104/62 124.3 kg Ray Cervantes APRN.CNS 01/16/2018 2:19 PM Addendum Check labs today Appointment with Joe Brown MD Appt with Dr. Brock Cervantes APRN.CNS 01/16/2018 2:42 PM Signed OUTPATIENT VISIT DATE January 16, 2018 OUTPATIENT VISIT TYPE ESTABLISHED PRIMARY CARE PHYSICIAN: Michelle Brown MD CHIEF COMPLAINT: Patient presents with: F/U 3 Month History of Present Illness: [place] Hollingsworth is a 37 year old male who was last seen 08/2017. He has been seen in the past for ACTIVE PROBLEM LIST Attention Deficit Disorder Without Mention of Hyperactivity Obesity, Unspecified Diabetes Mellitus Type 2, Uncontrolled, Without Complications (Hcc) Essential Hypertension Unspecified Sleep Apnea Cavus Deformity of Foot, Acquired Cervicalgia Anxiety and Depression Mixed Hyperlipidemia Since the last visit, he states that he is feeling a bit tired. Notes that he has darkening of his vision sometimes. Is taking long acting insulin and metformin as ordered, but has stopped checking blood sugars due to broken meter and is not taking short acting insulin. Without report of excessive thirst or increased frequency of urination, chest pain or dyspnea , numbness, tingling or pain in extremities, new or unusual visual symptoms, low sugar/hypoglycemic reactions, weight loss/gain, lightheadedness/dizziness and bowel changes/loose stools. Patient's last HgA1C was Hemoglobin A1C (%) Date Value 09/11/2017 8.8 02/23/2017 8.5 ) Recently completed drug rehabilitation in [place], is not seeing a mental health provider now, is feeling increased anxiety. On 20 mg citalopram daily. HTN: Without report of headache, chest pain, palpitations, dyspnea, peripheral edema, claudication symptoms, orthopnea and fatigue. No change in ability to complete daily tasks, walk a flat surface, take stairs.Last 3 Encounter BP Readings: Date: BP: 01/16/2018 104/62 09/11/2017 130/82 06/28/2017 140/90 No recent hospital or ED visits. No new medical problems or medications. Able to obtain medications. No problems with taking medications or note side effects. PAST MEDICAL HISTORY Diagnosis Date - Anal fissure 03/03/2013 - Attention deficit disorder without mention of hyperactivity diagnosed in childhood - Back pain 02/12/2012 - Chronic post-traumatic headache - Closed fracture of dorsal (thoracic) vertebra without mention of spinal cord injury 04/03/2012 - Corns and callosities 12/05/2009 - Depressive disorder, not elsewhere classified 06/10/2012 - DIABETES MELLITUS TYPE II-UNCOMPL 08/30/2008 - Dysmetabolic syndrome X 07/21/2008 - Nonspecific abnormal results of liver function study 04/06/2005 Ferritin 225, HBsAg and Hep C negative in 10-30 U/S Fatty Liver - Pain in joint, lower leg 06/05/2012 - Unspecified essential hypertension 08/30/2008 PAST SURGICAL HISTORY Procedure Laterality Date - EGD W/O OR W/BRUSH/WASH 07/29/13 EGD - PAST SURGICAL HISTORY OF tooth extraction. FAMILY HISTORY Problem Relation Age of Onset - Diabetes Father - Hypertension Mother - COPD Mother - Coronary Artery Disease Father Bypass surgery and [place] 2012 - Diabetes Paternal Grandfather - Cancer Maternal Grandfather unknown - Heart Father - Heart Brother Social History Substance Use Topics - Smoking status: Current Every Day Smoker Packs/day: 0.50 Years: 15.00 Types: Cigarettes - Smokeless tobacco: Never Used Comment: 1/2 pack daily - Alcohol use No ALLERGIES: ALLERGIES Allergen Reactions - Metformin Diarrhea even on XR 500 mg once daily - Vicodin [Hydrocodon* GI Upset MEDICATIONS lisinopril (ZESTRIL, PRINIVIL) 10 mg tablet Take 1 tablet by mouth once daily. citalopram (CELEXA) 40 mg tablet Take 1 tablet by mouth every morning. prazosin (MINIPRESS) 2 mg cap Take 1 capsule by mouth daily at bedtime. divalproex ER (DEPAKOTE ER) 500 mg 24 hr tablet Take 4 tablets by mouth daily at bedtime. OLANZapine (ZYPREXA) 10 mg tablet Take 1 tablet by mouth daily at bedtime. metFORMIN (GLUCOPHAGE) 500 mg tablet Take 2 tablets by mouth twice daily with meals. insulin glargine (LANTUS SOLOSTAR U-100 INSULIN) 100 unit/mL (3 mL) inpn Inject 25 Units subcutaneously daily at bedtime. PATIENT ASSISTANCE SANOFI NOVOLOG FLEXPEN U-100 INSULIN 100 unit/mL inpn Inject 10 Units subcutaneously three times daily with meals. Blood-Glucose Meter monitoring kit Glucose Meter of Choice (whatever is covered by insurance) - Kit - Dx: Type 2 DM - Uncontrolled E11.65 blood sugar diagnostic (BLOOD GLUCOSE TEST) test strip Choose brand covered by insurance. Test blood sugar(s) 3 times daily. Dx: Type 2 DM - Uncontrolled E11.65 Insulin: Yes Lancets lancets Choose lancets covered by insurance. Test blood sugar(s) 3 times daily. Dx: Type 2 DM - Uncontrolled E11.65 Insulin: Yes Insulin L[place], Disposable, (BD ULTRA-FINE SAGRARIO PEN NEEDLES) 32 gauge x 5/ ndle Use one needle for each dose. 4/day. Insulin Syringe-Needle U-100 0.3 mL 29 gauge x 1/2 syrg USE ONE SYRINGE FOR EACH INSULIN DOSE/ 2 PER DAY REVIEW OF SYSTEMS: GENERAL: Negative for: Weight loss or gain, Fever or Chills, Weakness and Sleep difficulties. Physical Examination: BP 104/62 Pulse 84 Resp 16 Wt 274 lb (124.3kg) BP w/Orthostatic Vitals Date and Time Orthostatic BP Orthostatic Pulse BP Pulse BP Position BP Site BP Cuff Size 01/16/18 1340 -- -- 104/62 84 Sitting Left Arm Large Adult Peak Flow Date and Time PF Resp 01/16/18 1340 -- 16 General appearance: Well appearing, alert, in no acute distress, obese,well-hydrated . Skin: Skin color, texture, turgor normal, no suspicious rashes or lesions Neck: Supple, no adenopathy; thyroid symmetric, normal size, no bruits Lungs: Lungs clear to auscultation. No wheezing, rhonchi, rales Heart: RRR without murmur, gallop, or rubs Abdomen: Abdomen soft, non-tender. Bowel sounds normal. No masses, organomegaly Extremities: No edema, skin discoloration, clubbing or cyanosis. Good capillary refill. Musculoskeletal: . Muscular strength intact, No joint swelling, deformity, or tenderness Peripheral pulses: Normal Neuro: Gait normal. Sensation grossly intact. Reviewed chart, outside records, tests I personally interviewed, confirmed and edited the above information if obtained by others. TESTING: Glucose (mg/dL) Date Value 09/11/2017 254 Potassium (mmol/L) Date Value 09/11/2017 4.2 Sodium (mmol/L) Date Value 09/11/2017 137 Chloride (mmol/L) Date Value 09/11/2017 99 CO2 (mmol/L) Date Value 09/11/2017 23 Creatinine (mg/dL) Date Value 09/11/2017 0.89 BUN (mg/dL) Date Value 09/11/2017 17 Anion Gap (mmol/L) Date Value 09/11/2017 15 Calcium (mg/dL) Date Value 09/11/2017 9.2 Glucose (mg/dL) Date Value 09/11/2017 254 Potassium (mmol/L) Date Value 09/11/2017 4.2 Sodium (mmol/L) Date Value 09/11/2017 137 Chloride (mmol/L) Date Value 09/11/2017 99 CO2 (mmol/L) Date Value 09/11/2017 23 Creatinine (mg/dL) Date Value 09/11/2017 0.89 BUN (mg/dL) Date Value 09/11/2017 17 Anion Gap (mmol/L) Date Value 09/11/2017 15 Calcium (mg/dL) Date Value 09/11/2017 9.2 Protein, Total (g/dL) Date Value 09/11/2017 7.6 Albumin (g/dL) Date Value 09/11/2017 4.6 Bilirubin, Total (mg/dL) Date Value 09/11/2017 0.7 Alkaline Phosphatase (U/L) Date Value 09/11/2017 66 AST (U/L) Date Value 09/11/2017 26 ALT (U/L) Date Value 09/11/2017 26 Hemoglobin (g/dL) Date Value 02/23/2017 16.8 Hematocrit (%) Date Value 02/23/2017 49.2 WBC (k/uL) Date Value 02/23/2017 8.74 Cholesterol, Total (mg/dL) Date Value 09/11/2017 231 HDL Cholesterol (mg/dL) Date Value 09/11/2017 37 LDL Cholesterol (mg/dL) Date Value 09/11/2017 149 Triglyceride (mg/dL) Date Value 09/11/2017 226 Hemoglobin A1C Date Value Ref Range Status 09/11/2017 8.8 (H) 4.3 - 5.6 % Final 02/23/2017 8.5 (H) 4.3 - 5.6 % Final Comment: [place] [employer] guidelines indicate that patients with HgbA1c in the range 5.7-6.4% are at increased risk for development of diabetes, and intervention by lifestyle modification may be beneficial. HgbA1c greater or equal to 6.5% is considered diagnostic of diabetes. 08/02/2015 9.0 (H) 4.3 - 5.6 % Final Comment: [place] [employer] guidelines indicate that patients with HgbA1c in the range 5.7-6.4% are at increased risk for development of diabetes, and intervention by lifestyle modification may be beneficial. HgbA1c greater or equal to 6.5% is considered diagnostic of diabetes. 11/10/2014 8.7 (H) 4.0 - 6.0 % Final Comment: [place] [employer] guidelines indicate that patients with HgbA1c in the range 5.7-6.4% are at increased risk for development of diabetes, and intervention by lifestyle modification may be beneficial. HgbA1c greater or equal to 6.5% is considered diagnostic of diabetes. 02/11/2013 5.9 4.0 - 6.0 % Final Comment: [place] [employer] guidelines indicate that patients with HgbA1c in the range 5.7-6.4% are at increased risk for development of diabetes, and intervention by lifestyle modification may be beneficial. HgbA1c greater or equal to 6.5% is considered diagnostic of diabetes. Ejection Fraction: No results found IMPRESSION: Mr. Hollingsworth is a 37 year old man presents for routine follow up. After my examination and review of data, I make the following recommendations. PLAN AND RECOMMENDATIONS: 1. Uncontrolled type 2 diabetes mellitus without complication, with long-term current use of insulin (HCC) - ICD9: 250.02, V58.67, ICD10: E11.65, Z79.4 (primary diagnosis) poorly controlled - Continue current medications - Blood glucose monitoring - resume - Ophthalmology referral for eval/management of diabetic eye changes - Encouraged regular aerobic exercise and weight loss - Follow up in 3 months, sooner should any other issues arise. - BP goal of <130/80 - LDL goal of <100 2. Anxiety and depression - ICD9: 300.00, 311, ICD10: F41.9, F32.9 - CITALOPRAM 40 MG TABLET - CONSULT TO PSYCHIATRY 3. History of drug use - ICD9: 305.93, ICD10: Z87.898 - CONSULT TO PSYCHIATRY 4. Essential hypertension - ICD9: 401.9, ICD10: I10 - good control - Continue current medication(s) - Encouraged dietary sodium restriction/DASH diet - Recommended regular aerobic exercise. - Goal of BP <130/80 - LISINOPRIL 10 MG TABLET - PRAZOSIN 2 MG CAPSULE Advised to go to ER if develops chest pain, shortness of breath, or severe worsening of symptoms. Discussed risks, benefits, alternatives, and potential side effects of medications. Mr. Hollingsworth expressed understanding and agreed with the plan. ROSANGELA Arriaga APRN.CNS 01/16/2018 3:28 PM Signed Addended by: RAY DEVI on: 01/16/2018 03:28 PM Modules accepted: Orders Referring Provider: RAY CERVANTES (HEAD OF DATA) [[id number]] Allergies As of Date: 01/16/2018 Noted Allergy Reaction METFORMIN 03/25/2012 6 - Diarrhea Comments: even on XR 500 mg once daily VICODIN (HYDROCODONE-ACETAMINOPHE*02/24/2009 8 - GI Upset Date Reviewed: 01/16/2018 Reviewed by: Melina Garcia LPN - Fully Assessed Reason for Visit: F/U 3 Month [443] Primary Visit Diagnosis:Uncontrolled type 2 diabetes mellitus without complication, with long-term current use of insulin (HCC) [E11.65, Z79.4] Other Visit Diagnoses:Anxiety and depression [F41.9, F32.9] History of drug use [Z87.898] Essential hypertension [I10] Order(s):lisinopril (ZESTRIL, PRINIVIL) 10 mg tabletTake 1 tablet by mouth once daily.Disp: 90 tabletRfl: 0 citalopram (CELEXA) 40 mg tabletTake 1 tablet by mouth every morning.Disp: 30 tabletRfl: 5 prazosin (MINIPRESS) 2 mg capTake 1 capsule by mouth daily at bedtime.Disp: 90 capsuleRfl: 0 CONSULT TO PSYCHOLOGY [[id number]] Order #: [id number]: 1 Prescriptions as of 01/16/2018 Sig: LISINOPRIL 10 MG TABLET Take 1 tablet by mouth once d* CITALOPRAM 40 MG TABLET Take 1 tablet by mouth every * PRAZOSIN 2 MG CAPSULE Take 1 capsule by mouth daily* DIVALPROEX ER 500 MG TABLET,E* Take 4 tablets by mouth daily* OLANZAPINE 10 MG TABLET Take 1 tablet by mouth daily * METFORMIN 500 MG TABLET Take 2 tablets by mouth twice* INSULIN GLARGINE (U-100) 100 * Inject 25 Units subcutaneousl* NOVOLOG FLEXPEN U-100 INSULIN* Inject 10 Units subcutaneousl* BLOOD-GLUCOSE METER KIT Glucose Meter of Choice (what* BLOOD SUGAR DIAGNOSTIC STRIPS Choose brand covered by insur* LANCETS Choose lancets covered by ins* PEN NEEDLE, DIABETIC 32 GAUGE* Use one needle for each dose.* INSULIN SYRINGE-NEEDLE U-100 * USE ONE SYRINGE FOR EACH INSU* Problem List As Of Date 01/16/2018 Noted Resolved 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 Diabetes mellitus type 2, uncontrolled, without*INVALID FOR* More... Essential hypertension [I10] INVALID FOR* SLEEP APNEA NOS [G47.30] INVALID FOR* More... 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] INVALID FOR* Cervicalgia [M54.2] INVALID FOR* Anxiety and depression [F41.9, F32.9] INVALID FOR* Mixed hyperlipidemia [E78.2] INVALID FOR* Other instructions from your clinician: Check labs today Appointment with Joe Brown MD Appt with Dr. Gutiérrez Prescriptions ordered this encounter Disp Refills Start End LISINOPRIL 10 MG TABLET 90 t* 0 01/16/2018 Route: ORAL Sig: Take 1 tablet by mouth once daily. CITALOPRAM 40 MG TABLET 30 t* 5 01/16/2018 Route: ORAL Sig: Take 1 tablet by mouth every morning. PRAZOSIN 2 MG CAPSULE 90 c* 0 01/16/2018 Route: ORAL Sig: Take 1 capsule by mouth daily at bedtime. Medications Discontinued During This Encounter lisinopril (ZESTRIL, PRINIVIL) 10 mg* 90 t* 0 09/11/2017 01/16/2018 Route: ORAL Sig: Take 1 tablet by mouth once daily. Disc: Reason for discontinue is not on file. citalopram (CELEXA) 20 mg tablet 90 t* 0 09/11/2017 01/16/2018 Route: ORAL Sig: Take 1 tablet by mouth every morning. Disc: Reason for discontinue is not on file. prazosin (MINIPRESS) 2 mg cap 90 c* 0 09/11/2017 01/16/2018 Route: ORAL Sig: Take 1 capsule by mouth daily at bedtime. Disc: Reason for discontinue is not on file. Follow-up and Disposition History Recorded Encounter Status:Closed by RAY DEVI on 01/16/18 PROGRESS Observed: 10/01/2017 Status: COMPLETED Source: [place] 8:45 AM [facility] REPOSITORY HNO ID: [id number] Author: Joe Vu (Pharmacist) Service: (none) Author Type: Pharmacist Type: Progress Notes Filed: 10/01/2017 8:45 AM Note Text: PharmD faxed patient assistance materials to [facility] on 10/01/17 for patient's Lantus insulin. Joe Vu PharmD, [facility] PROGRESS Observed: 10/01/2017 Status: COMPLETED Source: [place] 8:45 AM [facility] REPOSITORY HNO ID: [id number] Author: Joe Vu (Pharmacist) Service: (none) Author Type: Pharmacist Type: Progress Notes Filed: 10/15/2017 9:59 AM Note Text: PharmD called [employer] and LVM re: status of patient's application. PROGRESS Observed: 10/01/2017 Status: COMPLETED Source: [place] 8:45 AM [facility] REPOSITORY HNO ID: [id number] Author: Joe Vu (Pharmacist) Service: (none) Author Type: Pharmacist Type: Progress Notes Filed: 10/16/2017 12:21 PM Note Text: PharmD received notice on 10/11 that patient has been approved for 12 months of Lantus from [employer] [facility]. Called patient to let him know. Will await product delivery. PharmD will then f/u with patient's SMBGs in 2 weeks. Joe Vu PharmD, [facility] Observed: 10/01/2017 Status: COMPLETED Source: [place] 12:00 AM [facility] REPOSITORY Patient Update (PHMEWO) DEN[place] HOLLINGSWORTH ([id number]) 1980 M Date Time Provider Department 10/01/17 HORACE (PHARMACIST), JOE BEAUCHAMP During your visit today, we recorded the following information about you: NATHALIE MICHEL 10/01/2017 8:45 AM Signed PharmD faxed patient assistance materials to [facility] on 10/01/17 for patient's Lantus insulin. Joe Vu PharmD, [facility] NATHALIE MICHEL 10/15/2017 9:59 AM Signed PharmD called [employer] and [facility] re: status of patient's application. NATHALIE MICHEL 10/16/2017 12:21 PM Signed PharmD received notice on 10/11 that patient has been approved for 12 months of Lantus from [employer] [facility]. Called patient to let him know. Will await product delivery. PharmD will then f/u with patient's SMBGs in 2 weeks. Joe Vu PharmD, [facility] Allergies As of Date: 10/01/2017 Noted Allergy Reaction METFORMIN 03/25/2012 6 - Diarrhea Comments: even on XR 500 mg once daily VICODIN (HYDROCODONE-ACETAMINOPHE*02/24/2009 8 - GI Upset Date Reviewed: 09/11/2017 Reviewed by: Debi Pérez Violin Maker Hand - Fully Assessed Reason for Visit: Patient Assistance [[id number]] Prescriptions as of 10/01/2017 Sig: METFORMIN 500 MG TABLET Take 2 tablets by mouth twice* DIVALPROEX ER 500 MG TABLET,E* Take 4 tablets by mouth daily* PRAZOSIN 2 MG CAPSULE Take 1 capsule by mouth daily* OLANZAPINE 10 MG TABLET Take 1 tablet by mouth daily * CITALOPRAM 20 MG TABLET Take 1 tablet by mouth every * LISINOPRIL 10 MG TABLET Take 1 tablet by mouth once d* INSULIN GLARGINE (U-100) 100 * Inject 25 Units subcutaneousl* NOVOLOG FLEXPEN U-100 INSULIN* Inject 10 Units subcutaneousl* BLOOD-GLUCOSE METER KIT Glucose Meter of Choice (what* BLOOD SUGAR DIAGNOSTIC STRIPS Choose brand covered by insur* LANCETS Choose lancets covered by ins* PEN NEEDLE, DIABETIC 32 GAUGE* Use one needle for each dose.* INSULIN SYRINGE-NEEDLE U-100 * USE ONE SYRINGE FOR EACH INSU* Problem List As Of Date 10/01/2017 Noted Resolved 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 Diabetes mellitus type 2, uncontrolled, without*INVALID FOR* More... Essential hypertension [I10] INVALID FOR* SLEEP APNEA NOS [G47.30] INVALID FOR* More... 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] INVALID FOR* Cervicalgia [M54.2] INVALID FOR* Depressive disorder, not elsewhere classified [*INVALID FOR* Mixed hyperlipidemia [E78.2] INVALID FOR* Follow-up and Disposition History Recorded Encounter Status:Closed by HORACE (PHARMACIST)JOE on 10/01/17 PROGRESS Observed: 09/30/2017 Status: COMPLETED Source: [place] 2:00 PM [facility] REPOSITORY HNO ID: [id number] Author: Joe Vu (Pharmacist) Service: (none) Author Type: Pharmacist Type: Progress Notes Filed: 09/30/2017 2:57 PM Note Text: Patient consents to pharmacy collaborative practice agreement. REASON FOR CONSULT: DM GOALS: A1c < 7% CONSULTING PROVIDER: Dr. Brown Date of Consult: 08/2017 [place] Hollingsworth is a 37 year old male was last seen in [facility] by PCP, Dr. Michelle Brown MD on 02/23/17. Also saw Hope Older on 09/11/17 Patient is presenting today for initial pharmacotherapy management appointment for DM. At last provider visit metformin was stopped d/t severe diarrhea. INTERIM HISTORY: 09/22 no insurance for 60 days Reports re-started metformin at 1,000mg BID - no issues with diarrhea Hasn't started the meal time insulin d/t attempting to have it last longer Current DM Medications: Insulin glargine 25 units QHS Insulin aspart 10 units TID meals (not started yet) Metformin 500mg - take 2 tablets BID Current HTN Medications: None Preventative Medications: ? On MADDI/ARB: No ? On Statin: No ? On ASA: No ROS: ? Patient denies CP, SOB, GAMBINO, blurred vision, dizziness or lightheadedness ? Patient denies symptoms of hypoglycemia (sweating, anxiety, palpitations, hunger, and tremor) ? Patient denies symptoms of hyperglycemia (polyuria, polydipsia, polyphagia) ? Patient denies potential medication adverse effects DIET/EXERCISE/SOCIAL Hx: ? Reports eating mostly meat and potatoes and junk food MEDICATIONS: ? Pill bottles are not present. ? Adherence: reports missed doses - missed insulin twice in one week ? Pharmacy: [facility] ? Rx coverage: none currently ? Affordability: some medicines very expensive without insurance (insulin glargine and divalproex) ? Organization System: pill box ACTIVE PROBLEM LIST Attention Deficit Disorder Without Mention of Hyperactivity Obesity, Unspecified Diabetes Mellitus Type 2, Uncontrolled, Without Complications (Hcc) Essential Hypertension Unspecified Sleep Apnea Cavus Deformity of Foot, Acquired Cervicalgia Depressive Disorder, Not Elsewhere Classified Mixed Hyperlipidemia PAST MEDICAL HISTORY Diagnosis Date - Anal fissure 03/03/2013 - Attention deficit disorder without mention of hyperactivity diagnosed in childhood - Back pain 02/12/2012 - Chronic post-traumatic headache - Closed fracture of dorsal (thoracic) vertebra without mention of spinal cord injury 04/03/2012 - Corns and callosities 12/05/2009 - Depressive disorder, not elsewhere classified 06/10/2012 - DIABETES MELLITUS TYPE II-UNCOMPL 08/30/2008 - Dysmetabolic syndrome X 07/21/2008 - Nonspecific abnormal results of liver function study 04/06/2005 Ferritin 225, HBsAg and Hep C negative in 5-09 U/S Fatty Liver - Pain in joint, lower leg 06/05/2012 - Unspecified essential hypertension 08/30/2008 ALLERGIES Allergen Reactions - Metformin Diarrhea even on XR 500 mg once daily - Vicodin [Hydrocodon* GI Upset Current Outpatient Prescriptions: metFORMIN (GLUCOPHAGE) 500 mg tablet Take 1 tablet by mouth twice daily with meals. . divalproex ER (DEPAKOTE ER) 500 mg 24 hr tablet Take 4 tablets by mouth daily at bedtime. prazosin (MINIPRESS) 2 mg cap Take 1 capsule by mouth daily at bedtime. OLANZapine (ZYPREXA) 10 mg tablet Take 1 tablet by mouth daily at bedtime. citalopram (CELEXA) 20 mg tablet Take 1 tablet by mouth every morning. lisinopril (ZESTRIL, PRINIVIL) 10 mg tablet Take 1 tablet by mouth once daily. insulin glargine (BASAGLAR KWIKPEN U-100 INSULIN) 100 unit/mL (3 mL) inpn Inject 25 Units subcutaneously daily at bedtime. NOVOLOG FLEXPEN U-100 INSULIN 100 unit/mL inpn Inject 10 Units subcutaneously three times daily with meals. Blood-Glucose Meter monitoring kit Glucose Meter of Choice (whatever is covered by insurance) - Kit - Dx: Type 2 DM - Uncontrolled E11.65 blood sugar diagnostic (BLOOD GLUCOSE TEST) test strip Choose brand covered by insurance. Test blood sugar(s) 3 times daily. Dx: Type 2 DM - Uncontrolled E11.65 Insulin: Yes Lancets lancets Choose lancets covered by insurance. Test blood sugar(s) 3 times daily. Dx: Type 2 DM - Uncontrolled E11.65 Insulin: Yes Insulin [place], Disposable, (BD ULTRA-FINE SAGRARIO PEN NEEDLES) 32 gauge x 5/32 ndle Use one needle for each dose. 4/day. Insulin Syringe-Needle U-100 0.3 mL 29 gauge x 1/2 syrg USE ONE SYRINGE FOR EACH INSULIN DOSE/ 2 PER DAY No current facility-administered medications for this visit. Rx meds not listed in EPIC: none OTCs: none Herbals: none GLYCEMIC CONTROL: ? Glucometer present at visit: No ? SMBG?s: ? Once daily checks, all more than 300 ? Hypoglycemia: denies Last 3 Encounter BP Readings: Date: BP: 09/11/2017 130/82 06/28/2017 140/90 02/23/2017 120/92 Wt: 128.4 kg (283 lb) BMI: 36.32 kg/(m2) LABS Lab Results Component Value Date HBA1C 8.8 09/11/2017 HBA1C 8.5 02/23/2017 HBA1C 9.0 08/02/2015 CMP: Glucose 254 09/11/2017 BUN 17 09/11/2017 Creatinine 0.89 09/11/2017 Sodium 137 09/11/2017 Potassium 4.2 09/11/2017 Chloride 99 09/11/2017 CO2 23 09/11/2017 Protein, Total 7.6 09/11/2017 Albumin 4.6 09/11/2017 Calcium 9.2 09/11/2017 Alkaline Phosphatase 66 09/11/2017 Bilirubin, Total 0.7 09/11/2017 AST 26 09/11/2017 ALT 26 09/11/2017 Estimated CrCL > 100 mL/min (calculated using Ht 74, adjusted Wt 100.7 kg, sCr 0.89 mg/dL, using [place] Gault) Last Lipid Panel Lab Results Component Value Date CHOL 231 09/11/2017 Lab Results Component Value Date HDL 37 09/11/2017 Lab Results Component Value Date LDL 149 09/11/2017 Lab Results Component Value Date TG 226 09/11/2017 Albumin/Creat Ratio (mg/g) Date Value 09/11/2017 8 PHARMACOTHERAPY ASSESSMENT/PLAN: 1. Uncontrolled type 2 diabetes mellitus without complication, with long-term current use of insulin ([facility]) - ICD9: 250.02, V58.67, ICD10: E11.65, Z79.4 (primary diagnosis) A1c goal < 7%, patient is not at goal (8.8% on 09/11/17). FBGs reported not at goal. Patient mostly compliant with and tolerating current regimen. Will have him start meal time insulin given cost constrains with basal insulin (has one box of insulin aspart pens but only two insulin glargine pens remaining). Will apply to patient assistance for glargine but if that doesn't work will have to transition patient to NPH in the short-term until insurance resumes. Renal fxn and LFTs WNL and appropriate for continued therapy ? START insulin aspart 10 units TID meals ? CONTINUE insulin glargine 25 units QHS and metformin 1,000mg BID ? Instructed patient to start checking FBGs daily and call results in 1 week ? PharmD will submit application for patient assistance for Lantus and provided goodrx coupon for divalproex ER 2. Essential hypertension - ICD9: 401.9, ICD10: I10 BP goal < 140/90, pt is at goal without therapy. Will continue to monitor and likely add MADDI inhibitor in the future for renal protection. 3. Mixed hyperlipidemia - ICD9: 272.2, ICD10: E78.2 Pt is on not prescribed statin therapy (unable to calculate risk score given age < 40 and LDL < 190). Patient likely qualifies for moderate intensity statin but will focus on sugar control at this time and monitor lipids. Patient and advised on risks of uncontrolled DM/cholesterol and they express understanding. Health Maintenance issues addressed: DILATED RETINAL EXAM due on 01/28/2013 Patient is scheduled to see PCP needs to schedule. Patient to return to clinic for PharmD f/u in one week telephonically, will schedule visit at that time. Patient verbalized understanding of instructions. Joe Vu, PallaviD, [facility] CNOV Observed: 09/30/2017 Status: COMPLETED Source: [place] 2:00 PM [facility] REPOSITORY Office Visit (PHMEWO) DEN[place] HOLLINGSWORTH ([id number]) 1980 M Date Time Provider Department 09/30/17 2:00 PM HORACE (PHARMACIST)JOE During your visit today, we recorded the following information about you: NATHALIE MICHEL 09/30/2017 2:57 PM Signed Patient consents to pharmacy collaborative practice agreement. REASON FOR CONSULT: DM GOALS: A1c ANDlt; 7% CONSULTING PROVIDER: Dr. Brown Date of Consult: 08/2017 [place] Hollingsworth is a 37 year old male was last seen in [facility] by PCP, Dr. Michelle Brown MD on 02/23/17. Also saw Hope Garcia on 09/11/17 Patient is presenting today for initial pharmacotherapy management appointment for DM. At last provider visit metformin was stopped d/t severe diarrhea. INTERIM HISTORY: 09/22 no insurance for 60 days Reports re-started metformin at 1,000mg BID - no issues with diarrhea Hasn't started the meal time insulin d/t attempting to have it last longer Current DM Medications: Insulin glargine 25 units QHS Insulin aspart 10 units TID meals (not started yet) Metformin 500mg - take 2 tablets BID Current HTN Medications: None Preventative Medications: ? On MADDI/ARB: No ? On Statin: No ? On ASA: No ROS: ? Patient denies CP, SOB, GAMBINO, blurred vision, dizziness or lightheadedness ? Patient denies symptoms of hypoglycemia (sweating, anxiety, palpitations, hunger, and tremor) ? Patient denies symptoms of hyperglycemia (polyuria, polydipsia, polyphagia) ? Patient denies potential medication adverse effects DIET/EXERCISE/SOCIAL Hx: ? Reports eating mostly meat and potatoes and ANDquot;junk foodANDquot; MEDICATIONS: ? Pill bottles are not present. ? Adherence: reports missed doses - missed insulin twice in one week ? [facility] ? Rx coverage: none currently ? Affordability: some medicines very expensive without insurance (insulin glargine and divalproex) ? Organization System: pill box ACTIVE PROBLEM LIST Attention Deficit Disorder Without Mention of Hyperactivity Obesity, Unspecified Diabetes Mellitus Type 2, Uncontrolled, Without Complications (Hcc) Essential Hypertension Unspecified Sleep Apnea Cavus Deformity of Foot, Acquired Cervicalgia Depressive Disorder, Not Elsewhere Classified Mixed Hyperlipidemia PAST MEDICAL HISTORY Diagnosis Date - Anal fissure 03/03/2013 - Attention deficit disorder without mention of hyperactivity diagnosed in childhood - Back pain 02/12/2012 - Chronic post-traumatic headache - Closed fracture of dorsal (thoracic) vertebra without mention of spinal cord injury 04/03/2012 - Corns and callosities 12/05/2009 - Depressive disorder, not elsewhere classified 06/10/2012 - DIABETES MELLITUS TYPE II-UNCOMPL 08/30/2008 - Dysmetabolic syndrome X 07/21/2008 - Nonspecific abnormal results of liver function study 04/06/2005 Ferritin 225, HBsAg and Hep C negative in 5-09 U/S Fatty Liver - Pain in joint, lower leg 06/05/2012 - Unspecified essential hypertension 08/30/2008 ALLERGIES Allergen Reactions - Metformin Diarrhea even on XR 500 mg once daily - Vicodin [Hydrocodon* GI Upset Current Outpatient Prescriptions: metFORMIN (GLUCOPHAGE) 500 mg tablet Take 1 tablet by mouth twice daily with meals. . divalproex ER (DEPAKOTE ER) 500 mg 24 hr tablet Take 4 tablets by mouth daily at bedtime. prazosin (MINIPRESS) 2 mg cap Take 1 capsule by mouth daily at bedtime. OLANZapine (ZYPREXA) 10 mg tablet Take 1 tablet by mouth daily at bedtime. citalopram (CELEXA) 20 mg tablet Take 1 tablet by mouth every morning. lisinopril (ZESTRIL, PRINIVIL) 10 mg tablet Take 1 tablet by mouth once daily. insulin glargine (BASAGLAR KWIKPEN U-100 INSULIN) 100 unit/mL (3 mL) inpn Inject 25 Units subcutaneously daily at bedtime. NOVOLOG FLEXPEN U-100 INSULIN 100 unit/mL inpn Inject 10 Units subcutaneously three times daily with meals. Blood-Glucose Meter monitoring kit Glucose Meter of Choice (whatever is covered by insurance) - Kit - Dx: Type 2 DM - Uncontrolled E11.65 blood sugar diagnostic (BLOOD GLUCOSE TEST) test strip Choose brand covered by insurance. Test blood sugar(s) 3 times daily. Dx: Type 2 DM - Uncontrolled E11.65 Insulin: Yes Lancets lancets Choose lancets covered by insurance. Test blood sugar(s) 3 times daily. Dx: Type 2 DM - Uncontrolled E11.65 Insulin: Yes Insulin [place], Disposable, (BD ULTRA-FINE SAGRARIO PEN NEEDLES) 32 gauge x 5/32ANDquot; ndle Use one needle for each dose. 4/day. Insulin Syringe-Needle U-100 0.3 mL 29 gauge x 1/2ANDquot; syrg USE ONE SYRINGE FOR EACH INSULIN DOSE/ 2 PER DAY No current facility-administered medications for this visit. Rx meds not listed in EPIC: none OTCs: none Herbals: none GLYCEMIC CONTROL: ? Glucometer present at visit: No ? SMBG?s: ? Once daily checks, all more than 300 ? Hypoglycemia: denies Last 3 Encounter BP Readings: Date: BP: 09/11/2017 130/82 06/28/2017 140/90 02/23/2017 120/92 Wt: 128.4 kg (283 lb) BMI: 36.32 kg/(m2) LABS Lab Results Component Value Date HBA1C 8.8 09/11/2017 HBA1C 8.5 02/23/2017 HBA1C 9.0 08/02/2015 CMP: Glucose 254 09/11/2017 BUN 17 09/11/2017 Creatinine 0.89 09/11/2017 Sodium 137 09/11/2017 Potassium 4.2 09/11/2017 Chloride 99 09/11/2017 CO2 23 09/11/2017 Protein, Total 7.6 09/11/2017 Albumin 4.6 09/11/2017 Calcium 9.2 09/11/2017 Alkaline Phosphatase 66 09/11/2017 Bilirubin, Total 0.7 09/11/2017 AST 26 09/11/2017 ALT 26 09/11/2017 Estimated CrCL ANDgt; 100 mL/min (calculated using Ht 74ANDquot;, adjusted Wt 100.7 kg, sCr 0.89 mg/dL, using [place] Gault) Last Lipid Panel Lab Results Component Value Date CHOL 231 09/11/2017 Lab Results Component Value Date HDL 37 09/11/2017 Lab Results Component Value Date LDL 149 09/11/2017 Lab Results Component Value Date TG 226 09/11/2017 Albumin/Creat Ratio (mg/g) Date Value 09/11/2017 8 PHARMACOTHERAPY ASSESSMENT/PLAN: 1. Uncontrolled type 2 diabetes mellitus without complication, with long-term current use of insulin (HCC) - ICD9: 250.02, V58.67, ICD10: E11.65, Z79.4 (primary diagnosis) A1c goal ANDlt; 7%, patient is not at goal (8.8% on 09/11/17). FBGs reported not at goal. Patient mostly compliant with and tolerating current regimen. Will have him start meal time insulin given cost constrains with basal insulin (has one box of insulin aspart pens but only two insulin glargine pens remaining). Will apply to patient assistance for glargine but if that doesn't work will have to transition patient to NPH in the short-term until insurance resumes. Renal fxn and LFTs WNL and appropriate for continued therapy ? START insulin aspart 10 units TID meals ? CONTINUE insulin glargine 25 units QHS and metformin 1,000mg BID ? Instructed patient to start checking FBGs daily and call results in 1 week ? PharmD will submit application for patient assistance for Lantus and provided goodrx coupon for divalproex ER 2. Essential hypertension - ICD9: 401.9, ICD10: I10 BP goal ANDlt; 140/90, pt is at goal without therapy. Will continue to monitor and likely add MADDI inhibitor in the future for renal protection. 3. Mixed hyperlipidemia - ICD9: 272.2, ICD10: E78.2 Pt is on not prescribed statin therapy (unable to calculate risk score given age ANDlt; 40 and LDL ANDlt; 190). Patient likely qualifies for moderate intensity statin but will focus on sugar control at this time and monitor lipids. Patient and advised on risks of uncontrolled DM/cholesterol and they express understanding. Health Maintenance issues addressed: DILATED RETINAL EXAM due on 01/28/2013 Patient is scheduled to see PCP needs to schedule. Patient to return to clinic for PharmD f/u in one week telephonically, will schedule visit at that time. Patient verbalized understanding of instructions. Joe Vu, PharmD, BCPS JOE VU, PHARMACIST 09/30/2017 2:30 PM Signed Novolog 10 units with each meal Basaglar 25 units every day Metformin twice per day Check sugar every morning and call me with numbers in one week Referring Provider: MICHELLE BROWN [[id number]] Allergies As of Date: 09/30/2017 Noted Allergy Reaction METFORMIN 03/25/2012 6 - Diarrhea Comments: even on XR 500 mg once daily VICODIN (HYDROCODONE-ACETAMINOPHE*02/24/2009 8 - GI Upset Date Reviewed: 09/11/2017 Reviewed by: Debi Pérez Violin Maker Hand - Fully Assessed Reason for Visit: Allied Health Visit [5] Cmt: DM initial Primary Visit Diagnosis:Uncontrolled type 2 diabetes mellitus without complication, with long-term current use of insulin ([facility]) [E11.65, Z79.4] Other Visit Diagnoses:Essential hypertension [I10] Mixed hyperlipidemia [E78.2] Order(s):metFORMIN (GLUCOPHAGE) 500 mg tabletTake 2 tablets by mouth twice daily with meals.Disp: Rfl: Prescriptions as of 09/30/2017 Sig: METFORMIN 500 MG TABLET Take 2 tablets by mouth twice* PRAZOSIN 2 MG CAPSULE Take 1 capsule by mouth daily* OLANZAPINE 10 MG TABLET Take 1 tablet by mouth daily * CITALOPRAM 20 MG TABLET Take 1 tablet by mouth every * LISINOPRIL 10 MG TABLET Take 1 tablet by mouth once d* INSULIN GLARGINE (U-100) 100 * Inject 25 Units subcutaneousl* NOVOLOG FLEXPEN U-100 INSULIN* Inject 10 Units subcutaneousl* DIVALPROEX ER 500 MG TABLET,E* Take 4 tablets by mouth daily* BLOOD-GLUCOSE METER KIT Glucose Meter of Choice (what* BLOOD SUGAR DIAGNOSTIC STRIPS Choose brand covered by insur* LANCETS Choose lancets covered by ins* PEN NEEDLE, DIABETIC 32 GAUGE* Use one needle for each dose.* INSULIN SYRINGE-NEEDLE U-100 * USE ONE SYRINGE FOR EACH INSU* Problem List As Of Date 09/30/2017 Noted Resolved 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 Diabetes mellitus type 2, uncontrolled, without*INVALID FOR* More... Essential hypertension [I10] INVALID FOR* SLEEP APNEA NOS [G47.30] INVALID FOR* More... 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] INVALID FOR* Cervicalgia [M54.2] INVALID FOR* Depressive disorder, not elsewhere classified [*INVALID FOR* Mixed hyperlipidemia [E78.2] INVALID FOR* Other instructions from your clinician: Novolog 10 units with each meal Basaglar 25 units every day Metformin twice per day Check sugar every morning and call me with numbers in one week Prescriptions ordered this encounter Disp Refills Start End METFORMIN 500 MG TABLET 09/30/2017 09/30/2017 Class: Med Update Route: ORAL Sig: Take 2 tablets by mouth twice daily with meals. . METFORMIN 500 MG TABLET 09/30/2017 Class: Med Update Route: ORAL Sig: Take 2 tablets by mouth twice daily with meals. Medications Discontinued During This Encounter metFORMIN (GLUCOPHAGE) 500 mg tablet 60 t* 11 09/11/2017 09/30/2017 Class: Historical Med Route: ORAL Sig: Take 1 tablet by mouth twice daily with meals. . Disc: Reason for discontinue is not on file. metFORMIN (GLUCOPHAGE) 500 mg tablet 09/30/2017 09/30/2017 Class: Med Update Route: ORAL Sig: Take 2 tablets by mouth twice daily with meals. . Disc: Reason for discontinue is not on file. Follow-up and Disposition History Recorded Encounter Status:Closed by HORACE (PHARMACIST)JOE on 09/30/17 ALBUMIN/CREAT RATIO Collected: 09/11/2017 Status: F Source: [place] 10:15 AM [facility] REPOSITORY TYPE CODE TESTS RESULT OUT OF REFERENCE UNITS RANGE LAB UCRR 20-300 mg/dL High Creatinine,Ur 323.9 ine,Ran LAB UALBR 0.0-23.0 mg/L High Albumin Urine 26.6 Random LAB UALBCR 0-30 mg/g Albumin/Creat 8 Ratio Result Comment: 30 to 300 mg/g indicates an increased risk for diabetic nephropathy. Greater than 300 mg/g is consistent with clinical nephropathy. (Am J Kidney Disease 1995, 25:107) Performed By: #### UACR #### [facility] [address] [place], [place] [address] COMP METABOLIC PANEL Collected: 09/11/2017 Status: F Source: [place] 10:14 AM [facility] REPOSITORY TYPE CODE TESTS RESULT OUT OF REFERENCE UNITS RANGE LAB TP 6.3-8.0 g/dL Protein, Total 7.6 LAB ALB 3.9-4.9 g/dL Albumin 4.6 LAB CA 8.5-10.2 mg/dL Calcium, Total 9.2 LAB TBIL 0.2-1.3 mg/dL Bilirubin, Total 0.7 LAB ALKP 36-108 U/L Alkaline Phosphatase 66 LAB AST 14-40 U/L AST 26 LAB GLU 74-99 mg/dL Glucose High 254 Result Comment: The [place] Diabetes Association (ADA) provides guidance for cutoff values for fasting glucose and random glucose. The ADA defines fasting as no caloric intake for at least 8 hours. Fas ting plasma glucose results between 100 to 125 mg/dL indicate increased risk for diabetes (prediabetes). Fasting plasma glucose results greater than or equal to 126 mg/dL meet the criteria for diagnosis of diabetes. In the absence of unequivocal hyperglycemia, results should be confirmed by repeat testing. In a patient with classic symptoms of hyperglycemia or hyperglycemic crisis, random plasma glucose results greater than or equal to 200 mg/dL meet the criteria for diagnosis of diabetes. Reference: Standards of Medical Care in Diabetes 2016, [place] [employer] Association. Diabetes Care. 2016.39(Suppl 1). LAB BUN 9-24 mg/dL BUN 17 LAB CRET 0.73-1.22 mg/dL Creatinine 0.89 LAB NA 136-144 mmol/L Sodium 137 LAB K 3.7-5.1 mmol/L Potassium 4.2 LAB CL 97-105 mmol/L Chloride 99 LAB CO2 22-30 mmol/L CO2 23 LAB AGAP 9-18 mmol/L Anion Gap 15 LAB ALT 10-54 U/L ALT 26 LAB GFRAA eGFR- Amer. >60 LAB GFRNAA . eGFR-All Other Races >60 Result Comment: eGFR (Estimated GFR) Units of measure: mL/min/1.73 meters squared eGFR is derived from the reexpressed MDRD Study equation using the following parameters: serum creatinine, age, gender and race. The creatinine assay has been calibrated to be traceable to IDMS. An eGFR <60 mL/min/1.73m2 for >3 months is consistent with chronic kidney disease. Refer to KDOQI guidelines for clinical interpretation. In patients with unstable renal function, e.g. those with acute kidney injury, the eGFR may not accurately reflect actual GFR. Performed By: #### CMP, LIPB, HBA1C #### [facility] [address] [place], [place] [address] LIPID PANEL, BASIC Collected: 09/11/2017 Status: F Source: [place] 10:14 AM [facility] REPOSITORY TYPE CODE TESTS RESULT OUT OF REFERENCE UNITS RANGE LAB CHOL <200 mg/dL Cholesterol High 231 Result Comment: <200 mg/dL, Desirable 200-239 mg/dL, Borderline high >239 mg/dL, High LAB TRIGLY <150 mg/dL Triglyceride High 226 Result Comment: <150 mg/dL, Normal 150-199 mg/dL, Borderline high 200-499 mg/dL, High >499 mg/dL, Very high LAB HDL >39 mg/dL HDL-Cholesterol Low 37 Result Comment: 40-59 mg/dL, Acceptable >59 mg/dL, High: Negative risk factor for coronary heart disease <40 mg/dL, Low: Positive risk factor for coronary heart disease LAB LDL <100 mg/dL LDL-Cholesterol High 149 Result Comment: <100 mg/dL, Optimal 100-129 mg/dL, Near optimal/above optimal 130-159 mg/dL, Borderline high 160-189 mg/dL, High >189 mg/dL, Very high Secondary prevention optimal LDL Cholesterol levels are recommended to be < 70 mg/dL LAB NONHDL <130 mg/dL Non HDL High Cholesterol 194 Result Comment: <130 mg/dL, Optimal 130-159 mg/dL, Near optimal/above optimal 160-189 mg/dL, Borderline high 190-219 mg/dL, High >219 mg/dL, Very high Secondary prevention optimal non HDL Cholesterol levels are recommended to be < 100 mg/dL LAB FT hrs Fasting Time 12 LAB VLDL <30 mg/dL High VLDL Cholesterol 45 LAB TCHDL <5.10 High TC:HDL Ratio 6.24 LAB LDLHDL <2.54 High LDL:HDL Ratio 4.03 Result Comment: Reference: 1. National Cholesterol Education Program ATP III Guideline At-A-Glance Quick Desk Reference: National Heart, Lung, and Blood [place]. National Institutes of Health. 2001: NIH Publication No. 01-3305. 2. An International Atherosclerosis Society position paper: global recommendations for the management of dyslipidemia: executive summary, Atherosclerosis. 2014: 232(2):410-413. Performed By: #### CMP, LIPB, HBA1C #### [facility] [employer] [address], [place] [address] HEMOGLOBIN A1C Collected: 09/11/2017 Status: F Source: [place] 10:14 AM [facility] REPOSITORY TYPE CODE TESTS RESULT OUT OF REFERENCE UNITS RANGE LAB HGBA1C 4.3-5.6 % High Hemoglobin A1c 8.8 LAB HBA0 mg/dL Est. Average Glucose 206 Result Comment: eAG: (Estimated average glucose) is a calculated value from HgbA1c and is sales representative graphic art of the average blood glucose level in the last 2-3 month period. Performed By: #### CMP, LIPB, HBA1C #### [facility] [employer] [address] [place], [place] [address] PROGRESS Observed: 09/11/2017 Status: COMPLETED Source: [place] 10:04 AM [facility] REPOSITORY HNO ID: [id number] Author: Hope (Professor Of Philosophy) Dianelys, MARGO.TANJA Service: (none) Author Type: Nurse Practitioner Type: Progress Notes Filed: 09/11/2017 11:57 AM Note Text: CC: Patient presents with: Medication Follow-up HPI Denver Hollingsworth is a 37 year old male who presents today for medication follow-up. Patient just returned from [place], was in an inpatient treatment facility. Needs refills on all Medications. He will not have insurance for 60 days starting September 22, needs 90 day supplies and assistance with diabetes medications. HTN: does not check BP's generally. Denies any symptoms referable to elevated blood pressure. Specifically denies headache, chest pain, palpitations, dyspnea, peripheral edema and fatigue. Patient denies any side effects of his medication(s) and is compliant with their regimen. Exercise: denies regular aerobic exercise. Diet: Watches diet for salt (salty snacks, added salt, processed frozen/canned foods), sugary/sweet snacks, unhealthy fats: No. Last 3 Encounter BP Readings: Date: BP: 09/11/2017 130/82 06/28/2017 140/90 02/23/2017 120/92 DIABETES MELLITUS: Excessive thirst, urinary frequency, numbness, tingling or pain in extremities, new or unusual visual symptoms, low sugar/hypoglycemic reactions, weight loss/gain or fatigue: Yes excessive thirst Depression/anxiety- yes, currently taking Celexa, Depakote and minipress. Follows a diabetic diet generally not very much. He has been taking Metformin and Lantus only, unable to afford Novolog. States metformin causes severe diarrhea, even when he was on low dose. Does not check blood sugars because he does not have a meter. 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 - Back pain 02/12/2012 - Chronic post-traumatic headache - Closed fracture of dorsal (thoracic) vertebra without mention of spinal cord injury 04/03/2012 - Corns and callosities 12/05/2009 - Depressive disorder, not elsewhere classified 06/10/2012 - DIABETES MELLITUS TYPE II-UNCOMPL 08/30/2008 - Dysmetabolic syndrome X 07/21/2008 - Nonspecific abnormal results of liver function study 04/06/2005 Ferritin 225, HBsAg and Hep C negative in 5-09 U/S Fatty Liver - Pain in joint, lower leg 06/05/2012 - Unspecified essential hypertension 08/30/2008 PAST SURGICAL HISTORY Procedure Laterality Date - EGD W/O OR W/BRUSH/WASH 07/29/13 EGD - PAST SURGICAL HISTORY OF tooth extraction. ALLERGIES Metformin; Vicodin [Hydrocodone-Acetaminophen] MEDICATIONS metFORMIN (GLUCOPHAGE) 500 mg tablet Take 1 tablet by mouth twice daily with meals. . divalproex ER (DEPAKOTE ER) 500 mg 24 hr tablet Take 4 tablets by mouth daily at bedtime. prazosin (MINIPRESS) 2 mg cap Take 1 capsule by mouth daily at bedtime. OLANZapine (ZYPREXA) 10 mg tablet Take 1 tablet by mouth daily at bedtime. citalopram (CELEXA) 20 mg tablet Take 1 tablet by mouth every morning. Insulin Syringe-Needle U-100 0.3 mL 29 gauge x 1/2 syrg USE ONE SYRINGE FOR EACH INSULIN DOSE/ 2 PER DAY blood sugar diagnostic (BLOOD GLUCOSE TEST) test strip Test blood sugar(s) 3 times daily. Dx: Type 2 DM - Uncontrolled E11.65 Insulin: Yes Lancets lancets Test blood sugar(s) 3 times daily. Dx: Type 2 DM - Uncontrolled E11.65 Insulin: Yes blood sugar diagnostic (FREESTYLE LITE STRIPS) test strip Test blood sugar(s) 4x daily. Dx: E11.65 Insulin: Yes NOVOLOG FLEXPEN U-100 INSULIN 100 unit/mL inpn BD ULTRA-FINE SAGRARIO PEN NEEDLES 32 gauge x 5/32 ndle lisinopril (ZESTRIL, PRINIVIL) 10 mg tablet Take 1 tablet by mouth once daily. FAMILY HISTORY Problem Relation Age of Onset - Diabetes Father - Hypertension Mother - COPD Mother - Coronary Artery Disease Father Bypass surgery and [place] 2012 - Diabetes Paternal Grandfather - Cancer Maternal Grandfather unknown - Heart Father - Heart Brother Social History Substance Use Topics - Smoking status: Current Every Day Smoker Packs/day: 0.50 Years: 15.00 Types: Cigarettes - Smokeless tobacco: Never Used Comment: 1/2 pack daily - Alcohol use No PHYSICAL EXAM BP 130/82 Pulse 108 Temp 37.2 ?C (99 ?F) (Temporal Artery) Resp 16 Wt 128.4 kg (283 lb) SpO2 96% BMI 36.32 kg/m2 General Appearance: well appearing, in no acute distress, alert Pysch: mood and affect broad and appropriate Lungs: Lungs clear to auscultation. No wheezing, rhonchi, rales Heart: RRR without murmur, gallop, or rubs. No ectopy Feet:Shoes and socks removed and No deformities, ulcers, calluses. Normal distal pulses DILATED RETINAL EXAM due on 01/28/2013 URINE ALBUMIN CREATININE RATIO due on 11/11/2015 DIABETIC FOOT EXAM due on 11/11/2015 INFLUENZA(1) due on 02/22/2017 HBA1C due on 08/23/2017 LDL due on 02/23/2018 TETANUS due on 03/25/2022 ONE PNEUMOVAX PRIOR TO AGE 65 Completed ASSESSMENT/PLAN: 1. Uncontrolled type 2 diabetes mellitus without complication, with long-term current use of insulin (HCC) - ICD9: 250.02, V58.67, ICD10: E11.65, Z79.4 (primary diagnosis) uncontrolled - Continue current medications. Change Lantus to Basaglar and continue with Novolog at meals. Given coupon for both for $5 co-pay with insurance. - Discontinue metformin due to severe diarrhea - Check HgA1C, fasting lipid panel and Urine for albumin/creatinine ratio - Blood glucose monitoring on a three times a day schedule - Ophthalmology referral for eval/management of diabetic eye changes. Referred to clinical pharmacist for diabetes management and medication assistance. - Encouraged regular aerobic exercise and weight loss - Follow up in 3 months, sooner should any other issues arise. 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 - CONSULT TO PHARMACY 2. Essential hypertension - ICD9: 401.9, ICD10: I10 - good control - Continue current medication(s) - Recommended regular aerobic exercise. Discussed diet with plenty fruits, vegetables, lean meats and healthy fats/oils. Avoid processed foods, trans fats, vegetable oils and simple sugars. Watch portion sizes. - Recommend home blood pressure monitoring, to bring results in on next visit - Goal of BP <140/90 3. Mixed hyperlipidemia - ICD9: 272.2, ICD10: E78.2 - to be determined upon return of lab results - Check fasting lipid panel Prescription instructions reviewed with patient as applicable. Potential red flag symptoms discussed with the patient. Reviewed appropriate action plan to take if red flag symptoms occur. Patient agreeable to treatment plan. Hope Garcia APRN.TANJA CNOV Observed: 09/11/2017 Status: COMPLETED Source: [place] 9:40 AM [facility] REPOSITORY Office Visit (INTMWS) DENVER HOLLINGSWORTH ([id number]) 1980 M Date Time Provider Department 09/11/17 9:40 AM HOPE GARCIA (TANJA) INTMWS During your visit today, we recorded the following information about you: Temperature Pulse Respiration Blood pressure 99 degrees 108/minute 16/minute 130/82 Weight 128.4 kg Hope Older, AMBULATORY SERVICES REPRESENTATIVE.ALON FREGOSO 09/11/2017 11:57 AM Signed CC: Patient presents with: Medication Follow-up HPI Denver Hollingsworth is a 37 year old male who presents today for medication follow-up. Patient just returned from [place], was in an inpatient treatment facility. Needs refills on all Medications. He will not have insurance for 60 days starting September 22, needs 90 day supplies and assistance with diabetes medications. HTN: does not check BP's generally. Denies any symptoms referable to elevated blood pressure. Specifically denies headache, chest pain, palpitations, dyspnea, peripheral edema and fatigue. Patient denies any side effects of his medication(s) and is compliant with their regimen. Exercise: denies regular aerobic exercise. Diet: Watches diet for salt (salty snacks, added salt, processed frozen/canned foods), sugary/sweet snacks, unhealthy fats: No. Last 3 Encounter BP Readings: Date: BP: 09/11/2017 130/82 06/28/2017 140/90 02/23/2017 120/92 DIABETES MELLITUS: Excessive thirst, urinary frequency, numbness, tingling or pain in extremities, new or unusual visual symptoms, low sugar/hypoglycemic reactions, weight loss/gain or fatigue: Yes excessive thirst Depression/anxiety- yes, currently taking Celexa, Depakote and minipress. Follows a diabetic diet generally not very much. He has been taking Metformin and Lantus only, unable to afford Novolog. States metformin causes severe diarrhea, even when he was on low dose. Does not check blood sugars because he does not have a meter. 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 - Back pain 02/12/2012 - Chronic post-traumatic headache - Closed fracture of dorsal (thoracic) vertebra without mention of spinal cord injury 04/03/2012 - Corns and callosities 12/05/2009 - Depressive disorder, not elsewhere classified 06/10/2012 - DIABETES MELLITUS TYPE II-UNCOMPL 08/30/2008 - Dysmetabolic syndrome X 07/21/2008 - Nonspecific abnormal results of liver function study 04/06/2005 Ferritin 225, HBsAg and Hep C negative in 10-30 U/S Fatty Liver - Pain in joint, lower leg 06/05/2012 - Unspecified essential hypertension 08/30/2008 PAST SURGICAL HISTORY Procedure Laterality Date - EGD W/O OR W/BRUSH/WASH 07/29/13 EGD - PAST SURGICAL HISTORY OF tooth extraction. ALLERGIES Metformin; Vicodin [Hydrocodone-Acetaminophen] MEDICATIONS metFORMIN (GLUCOPHAGE) 500 mg tablet Take 1 tablet by mouth twice daily with meals. . divalproex ER (DEPAKOTE ER) 500 mg 24 hr tablet Take 4 tablets by mouth daily at bedtime. prazosin (MINIPRESS) 2 mg cap Take 1 capsule by mouth daily at bedtime. OLANZapine (ZYPREXA) 10 mg tablet Take 1 tablet by mouth daily at bedtime. citalopram (CELEXA) 20 mg tablet Take 1 tablet by mouth every morning. Insulin Syringe-Needle U-100 0.3 mL 29 gauge x 1/2ANDquot; syrg USE ONE SYRINGE FOR EACH INSULIN DOSE/ 2 PER DAY blood sugar diagnostic (BLOOD GLUCOSE TEST) test strip Test blood sugar(s) 3 times daily. Dx: Type 2 DM - Uncontrolled E11.65 Insulin: Yes Lancets lancets Test blood sugar(s) 3 times daily. Dx: Type 2 DM - Uncontrolled E11.65 Insulin: Yes blood sugar diagnostic (FREESTYLE LITE STRIPS) test strip Test blood sugar(s) 4x daily. Dx: E11.65 Insulin: Yes NOVOLOG FLEXPEN U-100 INSULIN 100 unit/mL inpn BD ULTRA-FINE SAGRARIO PEN NEEDLES 32 gauge x /32ANDquot; ndle lisinopril (ZESTRIL, PRINIVIL) 10 mg tablet Take 1 tablet by mouth once daily. FAMILY HISTORY Problem Relation Age of Onset - Diabetes Father - Hypertension Mother - COPD Mother - Coronary Artery Disease Father Bypass surgery and [place] 2012 - Diabetes Paternal Grandfather - Cancer Maternal Grandfather unknown - Heart Father - Heart Brother Social History Substance Use Topics - Smoking status: Current Every Day Smoker Packs/day: 0.50 Years: 15.00 Types: Cigarettes - Smokeless tobacco: Never Used Comment: 1/2 pack daily - Alcohol use No PHYSICAL EXAM BP 130/82 Pulse 108 Temp 37.2 ?C (99 ?F) (Temporal Artery) Resp 16 Wt 128.4 kg (283 lb) SpO2 96% BMI 36.32 kg/m2 General Appearance: well appearing, in no acute distress, alert Pysch: mood and affect broad and appropriate Lungs: Lungs clear to auscultation. No wheezing, rhonchi, rales Heart: RRR without murmur, gallop, or rubs. No ectopy Feet:Shoes and socks removed and No deformities, ulcers, calluses. Normal distal pulses DILATED RETINAL EXAM due on 01/28/2013 URINE ALBUMIN CREATININE RATIO due on 11/11/2015 DIABETIC FOOT EXAM due on 11/11/2015 INFLUENZA(1) due on 02/22/2017 HBA1C due on 08/23/2017 LDL due on 02/23/2018 TETANUS due on 03/25/2022 ONE PNEUMOVAX PRIOR TO AGE 65 Completed ASSESSMENT/PLAN: 1. Uncontrolled type 2 diabetes mellitus without complication, with long-term current use of insulin ([facility]) - ICD9: 250.02, V58.67, ICD10: E11.65, Z79.4 (primary diagnosis) uncontrolled - Continue current medications. Change Lantus to Basaglar and continue with Novolog at meals. Given coupon for both for $5 co-pay with insurance. - Discontinue metformin due to severe diarrhea - Check HgA1C, fasting lipid panel and Urine for albumin/creatinine ratio - Blood glucose monitoring on a three times a day schedule - Ophthalmology referral for eval/management of diabetic eye changes. Referred to clinical pharmacist for diabetes management and medication assistance. - Encouraged regular aerobic exercise and weight loss - Follow up in 3 months, sooner should any other issues arise. - Discussed diabetic education issues of alf diabetic complications, hypoglycemic symptoms, hyperglycemic symptoms, diet, medications- side effects and need for compliance, importance of exercise, use and side effects of insulin and importance of annual examinations with Opthalmology with patient. - CONSULT TO PHARMACY 2. Essential hypertension - ICD9: 401.9, ICD10: I10 - good control - Continue current medication(s) - Recommended regular aerobic exercise. Discussed diet with plenty fruits, vegetables, lean meats and healthy fats/oils. Avoid processed foods, trans fats, vegetable oils and simple sugars. Watch portion sizes. - Recommend home blood pressure monitoring, to bring results in on next visit - Goal of BP ANDlt;140/90 3. Mixed hyperlipidemia - ICD9: 272.2, ICD10: E78.2 - to be determined upon return of lab results - Check fasting lipid panel Prescription instructions reviewed with patient as applicable. Potential red flag symptoms discussed with the patient. Reviewed appropriate action plan to take if red flag symptoms occur. Patient agreeable to treatment plan. Hope Garcia APRN.MAIL TELLER Referring Provider: SELF [[id number]] Allergies As of Date: 09/11/2017 Noted Allergy Reaction METFORMIN 03/25/2012 6 - Diarrhea Comments: even on XR 500 mg once daily VICODIN (HYDROCODONE-ACETAMINOPHE*02/24/2009 8 - GI Upset Date Reviewed: 09/11/2017 Reviewed by: Debi Pérez Violin Maker Hand - Fully Assessed Reason for Visit: Medication Follow-up [270] Primary Visit Diagnosis:Uncontrolled type 2 diabetes mellitus without complication, with long-term current use of insulin (HCC) [E11.65, Z79.4] Other Visit Diagnoses:Essential hypertension [I10] Mixed hyperlipidemia [E78.2] Order(s):divalproex ER (DEPAKOTE ER) 500 mg 24 hr tabletTake 4 tablets by mouth daily at bedtime.Disp: 360 tabletRfl: 0 prazosin (MINIPRESS) 2 mg capTake 1 capsule by mouth daily at bedtime.Disp: 90 capsuleRfl: 0 OLANZapine (ZYPREXA) 10 mg tabletTake 1 tablet by mouth daily at bedtime.Disp: 90 tabletRfl: 0 citalopram (CELEXA) 20 mg tabletTake 1 tablet by mouth every morning.Disp: 90 tabletRfl: 0 lisinopril (ZESTRIL, PRINIVIL) 10 mg tabletTake 1 tablet by mouth once daily.Disp: 90 tabletRfl: 0 insulin glargine (BASAGLAR KWIKPEN U-100 INSULIN) 100 unit/mL (3 mL) inpnInject 25 Units subcutaneously daily at bedtime.Disp: 15 PenRfl: 0 NOVOLOG FLEXPEN U-100 INSULIN 100 unit/mL inpnInject 10 Units subcutaneously three times daily with meals.Disp: 10 PenRfl: 0 Blood-Glucose Meter monitoring kitGlucose Meter of Choice (whatever is covered by insurance) - Kit - Dx: Type 2 DM - Uncontrolled E11Disp: 1 EachRfl: 0 blood sugar diagnostic (BLOOD GLUCOSE TEST) test stripChoose brand covered by insurance. Test blood sugar(s) 3 times daily. Dx: Type 2 DM - Uncontrolled 65 Insulin: YesDisp: 300 StripRfl: 0 Lancets lancetsChoose lancets covered by insurance. Test blood sugar(s) 3 times daily. Dx: Type 2 DM - Uncontrolled Insulin: YesDisp: 100 EachRfl: 11 Insulin [place], Disposable, (BD ULTRA-FINE SAGRARIO PEN NEEDLES) 32 gauge x 5/32 ndleUse one needle for each dose. 4/day.Disp: 400 EachRfl: 0 CONSULT TO PHARMACY [19990830] Order #: [id number]: 1 Prescriptions as of 09/11/2017 Sig: METFORMIN 500 MG TABLET Take 1 tablet by mouth twice * DIVALPROEX ER 500 MG TABLET,E* Take 4 tablets by mouth daily* PRAZOSIN 2 MG CAPSULE Take 1 capsule by mouth daily* OLANZAPINE 10 MG TABLET Take 1 tablet by mouth daily * CITALOPRAM 20 MG TABLET Take 1 tablet by mouth every * INSULIN SYRINGE-NEEDLE U-100 * USE ONE SYRINGE FOR EACH INSU* LISINOPRIL 10 MG TABLET Take 1 tablet by mouth once d* INSULIN GLARGINE (U-100) 100 * Inject 25 Units subcutaneousl* NOVOLOG FLEXPEN U-100 INSULIN* Inject 10 Units subcutaneousl* BLOOD-GLUCOSE METER KIT Glucose Meter of Choice (what* BLOOD SUGAR DIAGNOSTIC STRIPS Choose brand covered by insur* LANCETS Choose lancets covered by ins* PEN NEEDLE, DIABETIC 32 GAUGE* Use one needle for each dose.* Problem List As Of Date 09/11/2017 Noted Resolved 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 Diabetes mellitus type 2, uncontrolled, without*INVALID FOR* More... Essential hypertension [I10] INVALID FOR* SLEEP APNEA NOS [G47.30] INVALID FOR* More... 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] INVALID FOR* Cervicalgia [M54.2] INVALID FOR* Depressive disorder, not elsewhere classified [*INVALID FOR* Mixed hyperlipidemia [E78.2] INVALID FOR* Prescriptions ordered this encounter Disp Refills Start End DIVALPROEX ER 500 MG TABLET,EXTENDED* 360 * 0 09/11/2017 Route: ORAL Sig: Take 4 tablets by mouth daily at bedtime. PRAZOSIN 2 MG CAPSULE 90 c* 0 09/11/2017 Route: ORAL Sig: Take 1 capsule by mouth daily at bedtime. OLANZAPINE 10 MG TABLET 90 t* 0 09/11/2017 Route: ORAL Sig: Take 1 tablet by mouth daily at bedtime. CITALOPRAM 20 MG TABLET 90 t* 0 09/11/2017 Route: ORAL Sig: Take 1 tablet by mouth every morning. LISINOPRIL 10 MG TABLET 90 t* 0 09/11/2017 Route: ORAL Sig: Take 1 tablet by mouth once daily. INSULIN GLARGINE (U-100) 100 UNIT/ML* 15 P* 0 09/11/2017 Route: SUBCUTANEOUS Sig: Inject 25 Units subcutaneously daily at bedtime. NOVOLOG FLEXPEN U-100 INSULIN ASPART* 10 P* 0 09/11/2017 Route: SUBCUTANEOUS Sig: Inject 10 Units subcutaneously three times daily with meals. BLOOD-GLUCOSE METER KIT 1 Ea* 0 09/11/2017 Sig: Glucose Meter of Choice (whatever is covered by insurance) - Kit - Dx: Type 2 DM - Uncontrolled E11.65 BLOOD SUGAR DIAGNOSTIC STRIPS 300 * 0 09/11/2017 Sig: Choose brand covered by insurance. Test blood sugar(s) 3 times daily. Dx: Type 2 DM - Uncontrolled E11.65 Insulin: Yes LANCETS 100 * 11 09/11/2017 Sig: Choose lancets covered by insurance. Test blood sugar(s) 3 times daily. Dx: Type 2 DM - Uncontrolled E11.65 Insulin: Yes PEN NEEDLE, DIABETIC 32 GAUGE X / 400 * 0 09/11/2017 Sig: Use one needle for each dose. 4/day. Medications Discontinued During This Encounter losartan (COZAAR) 25 mg tablet 30 t* 5 02/23/2017 09/11/2017 Route: ORAL Sig: Take 1 tablet by mouth once daily. Disc: Changing Therapy/Dosage Form DULoxetine (CYMBALTA) 30 mg capsule 60 c* 0 02/12/2017 09/11/2017 Route: ORAL Sig: Take 1 capsule by mouth twice daily. Disc: Changing Therapy/Dosage Form lisinopril (ZESTRIL, PRINIVIL) 10 mg* 09/11/2017 09/11/2017 Class: Historical Med Route: ORAL Sig: Take 1 tablet by mouth every morning. Disc: Reason for discontinue is not on file. pantoprazole DR (PROTONIX) 40 mg tab* 30 t* 11 02/23/2017 09/11/2017 Route: ORAL Sig: Take 1 tablet by mouth once daily. Disc: Reason for discontinue is not on file. cyclobenzaprine (FLEXERIL) 10 mg tab* 30 t* 0 11/07/2016 09/11/2017 Route: ORAL Sig: Take 1 tablet by mouth every 8 hours as needed. FOR PAIN OR SPASMS Disc: Reason for discontinue is not on file. Lancets (FREESTYLE LANCETS) lancets 100 * 11 03/04/2014 09/11/2017 Sig: Test blood sugar(s) 1x daily. Dx: 250.00. Insulin: No Disc: Reason for discontinue is not on file. insulin 70/30 NPH/regular units/mL (* 1 Vi* 2 02/12/2017 09/11/2017 Route: SUBCUTANEOUS Sig: Inject 25 Units subcutaneously twice daily with meals. Adjust as directed Disc: Reason for discontinue is not on file. metFORMIN (GLUCOPHAGE) 1,000 mg tabl* 09/06/2017 09/11/2017 Class: Historical Med Sig: Disc: Reason for discontinue is not on file. divalproex ER (DEPAKOTE ER) 500 mg 2* 120 * 09/11/2017 09/11/2017 Class: Historical Med Route: ORAL Sig: Take 4 tablets by mouth daily at bedtime. Disc: Reason for discontinue is not on file. prazosin (MINIPRESS) 2 mg cap 09/11/2017 09/11/2017 Class: Historical Med Route: ORAL Sig: Take 1 capsule by mouth daily at bedtime. Disc: Reason for discontinue is not on file. OLANZapine (ZYPREXA) 10 mg tablet 09/11/2017 09/11/2017 Class: Historical Med Route: ORAL Sig: Take 1 tablet by mouth daily at bedtime. Disc: Reason for discontinue is not on file. citalopram (CELEXA) 20 mg tablet 09/11/2017 09/11/2017 Class: Historical Med Route: ORAL Sig: Take 1 tablet by mouth every morning. Disc: Reason for discontinue is not on file. lisinopril (ZESTRIL, PRINIVIL) 10 mg* 09/04/2017 09/11/2017 Class: Historical Med Sig: Disc: Reason for discontinue is not on file. blood sugar diagnostic (FREESTYLE LI* 100 * 11 08/02/2015 09/11/2017 Class: Med Update Sig: Test blood sugar(s) 4x daily. Dx: E11.65 Insulin: Yes Disc: Reason for discontinue is not on file. blood sugar diagnostic (BLOOD GLUCOS* 50 S* 11 02/23/2017 09/11/2017 Sig: Test blood sugar(s) 3 times daily. Dx: Type 2 DM - Uncontrolled E11.65 Insulin: Yes Disc: Reason for discontinue is not on file. Lancets lancets 100 * 11 02/23/2017 09/11/2017 Sig: Test blood sugar(s) 3 times daily. Dx: Type 2 DM - Uncontrolled E11.65 Insulin: Yes Disc: Reason for discontinue is not on file. BD ULTRA-FINE SAGRARIO PEN NEEDLES 32 ga* 09/06/2017 09/11/2017 Class: Historical Med Sig: Disc: Reason for discontinue is not on file. NOVOLOG FLEXPEN U-100 INSULIN 100 un* 09/05/2017 09/11/2017 Class: Historical Med Sig: Disc: Reason for discontinue is not on file. Encounter Status:Closed by HOPE GARCIA CNP on 09/11/17 PROGRESS Observed: 09/10/2017 Status: COMPLETED Source: [place] 11:32 AM [facility] REPOSITORY HNO ID: [id number] Author: Corinna Laird Cma Service: (none) Author Type: (none) Type: Progress Notes Filed: 09/10/2017 11:33 AM Note Text: Appointment karo. I called patient to remind him of his appointment and asked him to get labs done today, if possible. [place] he's in [place], but will be back for his appointment tomorrow. He will more than likely have to get labs done tomorrow. PROGRESS Observed: 09/03/2017 Status: COMPLETED Source: [place] 10:31 AM [facility] REPOSITORY HNO ID: [id number] Author: Corinna Eitan Violin Maker Hand Service: (none) Author Type: (none) Type: Progress Notes Filed: 09/10/2017 11:33 AM Note Text: Goes straight to voicemail and unable to leave a message due to no voicemail being set up. PROGRESS Observed: 08/29/2017 Status: COMPLETED Source: [place] 1:16 PM [facility] REPOSITORY HNO ID: [id number] Author: Corinna Laird [employer]in Maker Hand Service: (none) Author Type: (none) Type: Progress Notes Filed: 09/10/2017 11:33 AM Note Text: VM box not set up - unable to leave a message. Will try back later. PROGRESS Observed: 08/29/2017 Status: COMPLETED Source: [place] 1:13 PM [facility] REPOSITORY HNO ID: [id number] Author: Corinna Laird Violin Maker Hand Service: (none) Author Type: (none) Type: Progress Notes Filed: 09/10/2017 11:33 AM Note Text: PHMA TEAMLET DOCUMENTATION Provider Action/FYI: PSR Action/FYI: Teamlet has identified patient by name and date of . Team: Ray Alanis Eva,Myself ? Last Office Visit:Visit date not found ? Next Office Visit: Visit date not found ? Last BP/Labs: Blood Pressure: Last 3 Encounter BP Readings: Date: BP: 06/28/2017 140/90 02/23/2017 120/92 05/25/2016 120/90 Lipids: Cholesterol, Total (mg/dL) Date Value 02/23/2017 178 08/02/2015 202 HDL Cholesterol (mg/dL) Date Value 02/23/2017 31 08/02/2015 26 LDL Cholesterol (mg/dL) Date Value 02/23/2017 Unable to calculate due to increased Triglycerides. See LDL-Chol, Direct. 08/02/2015 Unable to calculate due to increased Triglycerides. See LDL-Chol, Direct. Triglyceride (mg/dL) Date Value 02/23/2017 465 08/02/2015 539 HGB A1C: Lab Results Component Value Date HBA1C 8.5 02/23/2017 HBA1C 9.0 08/02/2015 HBA1C 8.7 11/10/2014 TSH: No results found for: TSH) Care Gap: DM - Need Urine Albumin / NOT checked in last 12 months HTN - Last BP NOT under 140/90 Plan: ? Type of appointment needed: Follow-up DM/HTN next available with Provider pcp or STOCK ROOM MANAGER with labs prior Labs, HM and Immunization: Health Maintenance Due: DILATED RETINAL EXAM due on 01/28/2013 URINE ALBUMIN CREATININE RATIO due on 11/11/2015 - ordered DIABETIC FOOT EXAM due on 11/11/2015 INFLUENZA(1) due on 02/22/2017 HBA1C due on 08/23/2017 - ordered Corinna Laird Cma CNPTOUTREACH Observed: 08/29/2017 Status: COMPLETED Source: [place] 12:00 AM [facility] REPOSITORY Patient Outreach (FAMPWS) DENVER HOLLINGSWORTH ([id number]) 1980 M Date Time Provider Department 08/29/17 [facility] During your visit today, we recorded the following information about you: Corinna Laird Cma 09/10/2017 11:33 AM Signed PHMA TEAMLET DOCUMENTATION Provider Action/FYI: PSR Action/FYI: Teamlet has identified patient by name and date of . Team: Ray Alanis Eva,Myself ? Last Office Visit:Visit date not found ? Next Office Visit: Visit date not found ? Last BP/Labs: Blood Pressure: Last 3 Encounter BP Readings: Date: BP: 06/28/2017 140/90 02/23/2017 120/92 05/25/2016 120/90 Lipids: Cholesterol, Total (mg/dL) Date Value 02/23/2017 178 08/02/2015 202 HDL Cholesterol (mg/dL) Date Value 02/23/2017 31 08/02/2015 26 LDL Cholesterol (mg/dL) Date Value 02/23/2017 Unable to calculate due to increased Triglycerides. See LDL-Chol, Direct. 08/02/2015 Unable to calculate due to increased Triglycerides. See LDL-Chol, Direct. Triglyceride (mg/dL) Date Value 02/23/2017 465 08/02/2015 539 HGB A1C: Lab Results Component Value Date HBA1C 8.5 02/23/2017 HBA1C 9.0 08/02/2015 HBA1C 8.7 11/10/2014 TSH: No results found for: TSH) Care Gap: DM - Need Urine Albumin / NOT checked in last 12 months HTN - Last BP NOT under 140/90 Plan: ? Type of appointment needed: Follow-up DM/HTN next available with Provider pcp or STOCK ROOM MANAGER with labs prior Labs, HM and Immunization: Health Maintenance Due: DILATED RETINAL EXAM due on 01/28/2013 URINE ALBUMIN CREATININE RATIO due on 11/11/2015 - ordered DIABETIC FOOT EXAM due on 11/11/2015 INFLUENZA(1) due on 02/22/2017 HBA1C due on 08/23/2017 - ordered Corinna Laird [facility] Corinna Laird [facility] 09/10/2017 11:33 AM Signed VM box not set up - unable to leave a message. Will try back later. Corinna Kingsbury [facility] 09/10/2017 11:33 AM Signed Goes straight to voicemail and unable to leave a message due to no voicemail being set up. Corinna Kingsbury [facility] 09/10/2017 11:33 AM Signed Appointment karo. I called patient to remind him of his appointment and asked him to get labs done today, if possible. He states he's in [place], but will be back for his appointment tomorrow. He will more than likely have to get labs done tomorrow. Allergies As of Date: 08/29/2017 Noted Allergy Reaction METFORMIN 03/25/2012 6 - Diarrhea Comments: even on XR 500 mg once daily VICODIN (HYDROCODONE-ACETAMINOPHE*02/24/2009 8 - GI Upset Date Reviewed: 06/28/2017 Reviewed by: Debi Pérez [facility] - Fully Assessed Reason for Visit: PHMA/Care Gap Outreach [[id number]] Prescriptions as of 08/29/2017 Sig: INSULIN SYRINGE-NEEDLE U-100 * USE ONE SYRINGE FOR EACH INSU* PANTOPRAZOLE 40 MG TABLET,DEL* Take 1 tablet by mouth once d* BLOOD SUGAR DIAGNOSTIC STRIPS Test blood sugar(s) 3 times d* LANCETS Test blood sugar(s) 3 times d* LOSARTAN 25 MG TABLET Take 1 tablet by mouth once d* DULOXETINE 30 MG CAPSULE,DAVID* Take 1 capsule by mouth twice* INSULIN HUMAN U-100 NPH-REGUL* Inject 25 Units subcutaneousl* CYCLOBENZAPRINE 10 MG TABLET Take 1 tablet by mouth every * BLOOD SUGAR DIAGNOSTIC STRIPS Test blood sugar(s) 4x daily.* LANCETS Test blood sugar(s) 1x daily.* Problem List As Of Date 08/29/2017 Noted Resolved 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 Diabetes mellitus type 2, uncontrolled, without*INVALID FOR* More... Essential hypertension [I10] INVALID FOR* SLEEP APNEA NOS [G47.30] INVALID FOR* More... 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] INVALID FOR* Corns and Callosities [L84] INVALID FOR* Back pain [M54.9] INVALID FOR* Closed fracture of dorsal (thoracic) vertebra w*INVALID FOR* Cervicalgia [M54.2] INVALID FOR* Pain in joint, lower leg [M25.569] INVALID FOR* Depressive disorder, not elsewhere classified [*INVALID FOR* Mixed hyperlipidemia [E78.2] INVALID FOR* Anal fissure [K60.2] INVALID FOR* Encounter Status:Closed by CORINNA LAIRD CMA on 09/10/17 NATHALIE Observed: 08/13/2017 Status: COMPLETED Source: [place] 12:00 AM [facility] REPOSITORY Patient Outreach (FAMPST) DENVER HOLLINGSWORTH ([id number]) 1980 M Date Time Provider Department 08/13/17 MICHELLE BROWN During your visit today, we recorded the following information about you: Allergies As of Date: 08/13/2017 Noted Allergy Reaction METFORMIN 03/25/2012 6 - Diarrhea Comments: even on XR 500 mg once daily VICODIN (HYDROCODONE-ACETAMINOPHE*02/24/2009 8 - GI Upset Date Reviewed: 06/28/2017 Reviewed by: Debi Pérez [employer]in Maker [employer] - Fully Assessed Visit Diagnosis:Medication management [Z79.899] Order(s):ALBUMIN/CREAT RATIO RND UR [SQUACR] Order #: [id number] FUTURE Prescriptions as of 08/13/2017 Sig: INSULIN SYRINGE-NEEDLE U-100 * USE ONE SYRINGE FOR EACH INSU* X PANTOPRAZOLE 40 MG TABLET,DEL* Take 1 tablet by mouth once d* X BLOOD SUGAR DIAGNOSTIC STRIPS Test blood sugar(s) 3 times d* X LANCETS Test blood sugar(s) 3 times d* X LOSARTAN 25 MG TABLET Take 1 tablet by mouth once d* X DULOXETINE 30 MG CAPSULE,DAVID* Take 1 capsule by mouth twice* X INSULIN HUMAN U-100 NPH-REGUL* Inject 25 Units subcutaneousl* X CYCLOBENZAPRINE 10 MG TABLET Take 1 tablet by mouth every * X BLOOD SUGAR DIAGNOSTIC STRIPS Test blood sugar(s) 4x daily.* X LANCETS Test blood sugar(s) 1x daily.* Problem List As Of Date 08/13/2017 Noted Resolved 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 Diabetes mellitus type 2, uncontrolled, without*INVALID FOR* More... Essential hypertension [I10] INVALID FOR* SLEEP APNEA NOS [G47.30] INVALID FOR* More... 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] INVALID FOR* Corns and Callosities [L84] INVALID FOR* Back pain [M54.9] INVALID FOR* Closed fracture of dorsal (thoracic) vertebra w*INVALID FOR* Cervicalgia [M54.2] INVALID FOR* Pain in joint, lower leg [M25.569] INVALID FOR* Depressive disorder, not elsewhere classified [*INVALID FOR* Mixed hyperlipidemia [E78.2] INVALID FOR* Anal fissure [K60.2] INVALID FOR* Encounter Status:Closed by ERIC HANSON on 04/04/18 12 LEAD ELECTROCARDIOGRAM Observed: 07/03/2017 Status: F Source: [place] 4:15 PM [facility] REPOSITORY [facility] Cardiovascular Services [address] [place] [address] 12 Lead EKG 06/30/17 1928 MR#: [id number] Acct: [id number] Name: DENVER HOLLINGSWORTH Rep #: [id number] : 1980 37 From: Aron Santos MD Attending Dr: Status: DEP ER Ordering Dr: Kevin Burns DO Date: 06/30/17 Location: ED Sex: M C Admitted: Test Reason : CP Blood Pressure : / mmHG Vent. Rate : 114 BPM Atrial Rate : 114 BPM P-R Int : 160 ms QRS Dur : 076 ms QT Int : 304 ms P-R-T Axes : 036 004 020 degrees QTc Int : 419 ms Sinus tachycardia Otherwise normal ECG Confirmed by ARON SANTOS MD ([id number]), assistant editor KY MENENDEZ ([id number]) on 07/03/2017 4:14:56 PM Referred By: GOYO Confirmed By:ARON SANTOS MD 07/03/17 1614 Date Aron Santos MD CC: Michelle Brown MD Signed EMERGENCY DEPARTMENT Observed: 07/03/2017 Status: F Source: [place] SUMMARY 1:51 AM [facility] REPOSITORY [facility] Medical Records Department [address] [place] [address] Emergency Department Summary 06/30/17 2339 MR#: [id number] Acct: [id number] Name: DENVER HOLLINGSWORTH Rep #: [id number] : 1980 37 From: Kevin Burns DO PCP: Michelle Brown MD Status: DEP ER - ER Visit Summary Date of Service: 06/30/17 Chief Complaint: Chest pain History of Present Illness: The patient is a 37 M who presents with chest pain of 3 days duration. Patient states he was seen here last week and diagnosed with bronchitis. States he on Saturday with his primary care doctor had some chest pain and was told that he had a facial infection and that was the cause of his coughing. He states he was placed on doxycycline. Tells me that he was informed that his infection is spread to his whole body. He has a history of hypertension pancreatitis obesity diabetes. States he is not taking his medications because he is hard headed. Patient describes his chest pain as pretty much sharp stabbing heavy and just pain. Described as left-sided going up into his neck. He states he had an EKG in the office that was negative and was told he needs to see cardiology. Physical Examination: Afebrile vital signs are stable Gen: Well-nourished well-developed Head: Normocephalic atraumatic Eyes: Perrl EOMI ENT: TMs clear no rhinorrhea moist mucous membranes Neck: Supple no lymphadenopathy no JVD nontender CVS: Regular rate rhythm no murmurs normal S1-S2 Respiratory: No distress clear to auscultation bilaterally chest tender to palpation over the left anterior ribs Abdomen: Soft nontender nondistended normal bowel sounds no masses Back: Nontender Extremity: Nontender no edema Skin: Normal color no rash Neuro: alert orientated 3 CN II-XII intact normal strength sensation reflexes gait cerebellar Psych: Normal affect normal mood Test Results: EKG shows sinus rhythm at a rate of 114. White count of 19.5 (he is on prednisone) troponin d-dimer negative. Creatinine 1.36. CTA negative. Emergency Department Course and Treatment: Patient received a dose of Toradol for pain which helps. I do not believe this is cardiac in nature. This is most likely chest wall pain related to his coughing. Patient has underlying medical problems that he is not compliant with his treatment with. I informed the patient about his creatinine level. His glucose of 468. He received fluids and insulin. When informed that he will most likely develop severe medical problems such as renal failure and heart failure in the future patient states he notes understanding. In the same breath he states that he is leaving here and going to [place]. Patient to follow-up with his doctors. Impression: 1. Chest pain 2. Hyperglycemia (diabetic) secondary noncompliance This note was generated with DrawQuest software. It may contain incorrect words, spelling, and punctuation that were not noted in review of the chart prior to signing ED Disposition - Plan for ED Patient: Disposition: Home or Assisted Living Chief Complaint: Chest Pain Instructions: ED Chest Pain Atypical Unkn Cause Referrals: Michelle Brown MD [Primary Care Provider] - Keep Karo appointment Additional Instructions: If you do not start becoming compliant with your medical treatment your health will rapidly decline. This will most likely include renal failure, heart disease and heart failure, stroke. What to do if you have Problems For any increased pain, shortness of breath, bleeding, nausea or vomiting, chest pain, or any unexpected problems, contact your Primary Care Provider. Call [facility] ([phone]) or report to the closest Emergency Room. Call 911 if necessary. 07/03/17 0151 <Electronically signed by Kevin Burns DO> Date Kevin Burns DO Cosigner Signature (If Indicated): Date CC: Michelle Brown MD EMERGENCY DEPARTMENT Observed: 06/30/2017 Status: F Source: [place] SUMMARY 11:39 PM [facility] REPOSITORY [facility] Medical Records Department [address] [place] [address] Emergency Department Summary 06/30/17 2101 MR#: [id number] Acct: [id number] Name: DENVER HOLLINGSWORTH Maria Esther Rep #: [id number] : 1980 37 From: Kevin Burns DO PCP: Michelle Brown MD Status: DEP ER - ER Visit Summary This note was generated with DrawQuest software. It may contain incorrect words, spelling, and punctuation that were not noted in review of the chart prior to signing ED Disposition - Plan for ED Patient: Disposition: Home or Assisted Living Chief Complaint: Chest Pain Instructions: ED Chest Pain Atypical Unkn Cause Referrals: Michelle Brown MD [Primary Care Provider] - Keep Karo appointment Additional Instructions: If you do not start becoming compliant with your medical treatment your health will rapidly decline. This will most likely include renal failure, heart disease and heart failure, stroke. What to do if you have Problems For any increased pain, shortness of breath, bleeding, nausea or vomiting, chest pain, or any unexpected problems, contact your Primary Care Provider. Call [facility] ([phone]) or report to the closest Emergency Room. Call 911 if necessary. 06/30/17 2339 <Electronically signed by Kevin Burns DO> Date Kevin Burns DO Cosigner Signature (If Indicated): Date CC: Michelle Brown MD BEDSIDE GLUCOSE Collected: 06/30/2017 Status: F Source: [place] 10:44 PM [facility] REPOSITORY TYPE CODE TESTS RESULT OUT OF REFERENCE UNITS RANGE LAB L501.080 70-110 mg/dL High BEDSIDE GLU 245 Result Comment: MANAGEMENT OF PATIENT CARE PER NURSING PROTOCOL Performed By: #### L501.080 #### [facility] Point of Care [address] [place] [address] BEDSIDE GLUCOSE Collected: 06/30/2017 Status: F Source: [place] 9:51 PM [facility] REPOSITORY TYPE CODE TESTS RESULT OUT OF REFERENCE UNITS RANGE LAB L501.080 70-110 mg/dL High BEDSIDE GLU 306 Result Comment: MANAGEMENT OF PATIENT CARE PER NURSING PROTOCOL Performed By: #### L501.080 #### [facility] Point of Care [address] [place] [address] CTA CHEST W/WO Observed: 06/30/2017 Status: F Source: [place] CONTRAST 9:01 PM [facility] REPOSITORY [facility] Imaging Services [address] [place] [address] CTA Chest W/WO Contrast MR#: [id number] Acct: [id number] Name: DENVER HOLLINGSWORTH Rep #: [id number] : 1980 M 37 From: Erica Estrada MD PCP: Michelle Brown MD Status: REG ER Study: CTA Chest W/WO Contrast Date of Exam: 06/30/17 Exam# [id number] Ordering Dr: Kevin Burns DO STUDY: CTA CHEST REASON FOR EXAM: Male, 37 years old. Sternal pain. Radiates to left arm. RADIATION DOSAGE (If Supplied By Facility): CTDIvol = ( 16.5 ) mGy, DLP = ( 722.80 ) mGycm TECHNIQUE: The examination was performed with the intravenous administration of 100ML ml of Isovue 370 contrast material. Post-processing of the angiographic images was performed, with multiplanar reformation and 3D reconstruction. Individualized dose optimization techniques were used for this CT. COMPARISON: None. FINDINGS: Normal enhancement of the main pulmonary artery and right and left pulmonary arteries. Normal enhancement of the bilateral peripheral pulmonary arteries. There is no demonstrated pulmonary embolism. Normal thoracic aorta and visualized great vessels. There is no demonstrated aortic dissection. Normal heart and pericardium. Normal mediastinum. Normal hilar regions. Normal visualized trachea and bronchi. There is minimal bilateral dependent atelectasis. Normal chest wall structures. There are degenerative changes of thoracic spine. Normal visualized upper abdomen. CT/CTA Chest W/WO Contrast IMPRESSION: No demonstrated pulmonary embolism or arterial dissection. Degenerative changes of the thoracic spine. Minimal bilateral dependent atelectasis. Electronically Signed: Erica Estrada MD at 22:04 EST Tel , Service support , CC: Kevin Burns DO; Michelle Brown MD Superintendent System Operation: Signed CHEST 1 VIEW Observed: 06/30/2017 Status: F Source: [place] (PORTABLE) 7:55 PM [facility] HOSPITAL REPOSITORY [facility] Imaging Services [address] [place] [address] Chest 1 View (Portable) MR#: [id number] Acct: [id number] Name: DENVER HOLLINGSWORTH Rep #: [id number] : 1980 M 37 From: González Styles MD PCP: Michelle Brown MD Status: REG ER Study: Chest 1 View (Portable) Date of Exam: 06/30/17 Exam# [id number] Ordering Dr: Kevin Burns DO STUDY: X-RAY CHEST REASON FOR EXAM: Male, 37 years old. Chest pain TECHNIQUE: Single AP portable view of the chest. COMPARISON: 06/25/2017. FINDINGS: The lungs are clear and expanded. There is no demonstrated pleural abnormality. Normal size heart. Normal mediastinum and matthew. Normal visualized pulmonary arteries. Normal visualized aortic arch and descending thoracic aorta. Normal visualized thoracic spine. Normal visualized ribs, clavicles, and shoulders. There is no demonstrated abnormality of the visualized soft tissue structures of the upper abdomen. RAD/Chest 1 View (Portable) IMPRESSION: Normal x-ray examination of the chest. Electronically Signed: González Styles MD at 21:01 EST , Service support , CC: Kevin Burns DO; Michelle Brown MD Superintendent System Operation: Signed BEDSIDE GLUCOSE Collected: 06/30/2017 Status: F Source: [place] 7:35 PM [facility] REPOSITORY TYPE CODE TESTS RESULT OUT OF REFERENCE UNITS RANGE LAB L501.080 70-110 mg/dL High alert BEDSIDE GLU 467 Result Comment: Dr Daniel Followed MANAGEMENT OF PATIENT CARE PER NURSING PROTOCOL Performed By: #### L501.080 #### [facility] Point of Care [address] [place] [address] CBC W/DIFF, AUTOMATED Collected: 06/30/2017 Status: F Source: [place] 7:27 PM [facility] REPOSITORY TYPE CODE TESTS RESULT OUT OF RANGE REFERENCE UNITS LAB L100.1000 4.4-11.0 K/mm3 High WBC 19.5 LAB L100.1200 4.6-6.2 M/mm3 Normal RBC 5.72 LAB L100.1300 13.0-16.5 g/dl High HGB 17.4 LAB L100.1400 40-54 % Normal HCT 48.5 LAB L100.1500 80-94 fL Normal MCV 84.8 LAB L100.1600 27.0-32.0 pg Normal MCH 30.4 LAB L100.1700 32-36 g/gl Normal MCHC 35.9 LAB L100.1810 11.6-14.6 % Normal RDW CV 12.4 LAB L100.1820 35.1-43.9 fl Normal RDW SD 37.5 LAB L100.1900 150-450 K/mm3 Normal PLT 201 LAB L100.2000 6.2-12.0 fl Normal MPV 11.9 LAB L100.2100 47-70 % High NEUT% 85.9 LAB L100.2200 19-41 % Low LY% 9.8 LAB L100.2300 0-10 % Normal MONO% 3.5 LAB L100.2400 0-5 % Normal EO% 0.1 LAB L100.2500 0-1 % Normal BASO% 0.1 LAB L100.2550 0.0-0.9 % Normal IM GRAN % 0.600 Result Comment: IG% - Immature Granulocytes (promyelocytes, myelocytes and metamyelocytes) > 1% indicates that a LEFT SHIFT is Present. LAB L100.2620 2.0-7.7 X10 3/uL High Absolute Neut 16.7 LAB L100.2720 0.83-4.51 X10 3/ul Normal Absolute Lymph 1.91 Performed By: #### L100.0100 #### [facility] [address] [place], [address] BASIC METABOLIC Collected: 06/30/2017 Status: F Source: [place] PROFILE (BMP) 7:27 PM [facility] REPOSITORY Order Comment: 'TROP' Serial specimen #1, #2, #3, or #4: 1 TYPE CODE TESTS RESULT OUT OF RANGE REFERENCE UNITS LAB L501.0100 70-110 mg/dL High alert GLU 468 Result Comment: Critical Result(s) Called at: 20:37:08 06/30/2017 by: Tati Lemos Glucose result greater than or equal to 200 mg/dL suggests DIABETES MELLITUS per A.D.A. criteria. LAB L501.1000 7-18 mg/dL High BUN 26 LAB L501.1100 0.70-1.30 mg/dL High CREAT,SERUM 1.36 Result Comment: The validity of the calculated GFR AND GFRAA in patients over 70 years has not been determined. Clinical correlation is essential. LAB L501.1110 >60 mL/min Normal EST GFR 63 Result Comment: Non- GFR Calc LAB L501.1115 >60 mL/min Normal EST GFR - AA 76 Result Comment: GFR Calc LAB L501.1255 ml/min Normal Estimated CRCL 91.30 LAB L501.1300 10-20 RATIO Normal BUN/CRE 19.1 LAB L501.2200 8.5-10 mg/dL Normal .1 CA 9.5 LAB L501.5300 136-14 mmol/L Low 5 NA 131 LAB L501.5600 3.5-5. mmol/L Normal 1 K 4.7 LAB L501.5900 98-107 mmol/L Normal CL 99 LAB L501.6100 21.0-3 mmol/L Normal 2.0 CO2 23.0 LAB L501.6200 5-15 Normal GAP 9 Performed By: #### L500.2500, L501.4010 #### [facility] [address] [place], [place], [address] TROPONIN-I Collected: 06/30/2017 Status: F Source: [place] 7:27 PM [facility] REPOSITORY Order Comment: 'TROP' Serial specimen #1, #2, #3, or #4: 1 TYPE CODE TESTS RESULT OUT OF RANGE REFERENCE UNITS LAB L501.4010 <0.06 ng/mL Normal < 0.02 TROPONIN-I Result Comment: TROPONIN-I EXPECTED VALUES <0.05 NEGATIVE 0.06 - 0.59 AT RISK OF [place] > OR = 0.60 SUGGEST [place] Performed By: #### L500.2500, L501.4010 #### [facility] [address] [place], [address] D-DIMER QUANTITATIVE Collected: 06/30/2017 Status: F Source: [place] (DVT/PE) 7:27 PM [facility] REPOSITORY TYPE CODE TESTS RESULT OUT OF RANGE REFERENCE UNITS LAB L300.8000 0.27-0.49 FEU/ug/m Low D-DIMER < 0.27 QUANT Result Comment: NORMAL D-Dimer level (<0.50) indicates no DVT or PE. Performed By: #### L300.8000 #### [facility] [address] [place], [address] PROGRESS Observed: 06/28/2017 Status: COMPLETED Source: [place] 2:21 PM [facility] REPOSITORY HNO ID: [id number] Author: Hope (Tanja) Older Service: (none) Author Type: Nurse Practitioner Type: Progress Notes Filed: 06/28/2017 3:03 PM Note Text: CC: Patient presents with: [facility] ER Follow Up HPI Denver Hollingsworth is a 37 year old male who presents today for ER follow-up for bronchitis. Patient presented to ER on 06/25/17 with two month history of cough that was gradually worsening. Also reported headaches and orthopnea. Chest x-ray was negative. Diagnosed with bronchitis secondary to tobacco use. Prescribed course of Prednisone and Albuterol prn. Today patient reports he is worse. Cough, chest tightness and SOB worsening. Cough is non-productive and harsh, no hemoptysis. Treatments tried include Albuterol with no relief. Positive for headaches secondary to cough, nasal congestion, sinus pressure, fatigue, not sleeping, poor appetite. No fever, chills, nausea, vomiting, diarrhea. No history of asthma, emphysema, COPD or frequent episodes of bronchitis. Smokes 1/2 PPD typically. History of DM. History of chest pain a couple years ago. Admitted to [facility]. Patient believes he failed the stress test and was supposed to follow-up with cardiology be he never did. Has had frequent episodes of chest pain since then but still no follow-up. Also concerned about swelling and redness of external nose. States he injured his nose a couple weeks ago when a metal gate swung open and caused a cut to the bridge of his nose. Had swelling and bruising of nose and under eyes but resolved. Now nose is swollen, red, hot to the touch and tender. Denies epistaxis or purulent nasal drainage. REVIEW OF SYSTEMS General: no night sweats and no significant changes in weight Cardiovascular: no palpitations, no PND and no swelling. Positive for orthopnea, sleeping on 3 pillows due to SOB when laying flat. PAST MEDICAL HISTORY Diagnosis Date - Attention deficit disorder without mention of hyperactivity diagnosed in childhood - Chronic post-traumatic headache - Depressive disorder, not elsewhere classified 06/10/2012 - DIABETES MELLITUS TYPE II-UNCOMPL 08/30/2008 - Dysmetabolic syndrome X 07/21/2008 - Unspecified essential hypertension 08/30/2008 PAST SURGICAL HISTORY Procedure Laterality Date - EGD W/O OR W/BRUSH/WASH 07/29/13 EGD - PAST SURGICAL HISTORY OF tooth extraction. ALLERGIES Metformin; Vicodin [Hydrocodone-Acetaminophen] MEDICATIONS Insulin Syringe-Needle U-100 0.3 mL 29 gauge x 1/2 syrg USE ONE SYRINGE FOR EACH INSULIN DOSE/ [address] (PROTONIX) 40 mg tablet Take 1 tablet by mouth once daily. blood sugar diagnostic (BLOOD GLUCOSE TEST) test strip Test blood sugar(s) 3 times daily. Dx: Type 2 DM - Uncontrolled E11.65 Insulin: Yes Lancets lancets Test blood sugar(s) 3 times daily. Dx: Type 2 DM - Uncontrolled E11.65 Insulin: Yes losartan (COZAAR) 25 mg tablet Take 1 tablet by mouth once daily. DULoxetine (CYMBALTA) 30 mg capsule Take 1 capsule by mouth twice daily. insulin 70/30 NPH/regular units/mL (HUMULIN 70/30) Inject 25 Units subcutaneously twice daily with meals. Adjust as directed cyclobenzaprine (FLEXERIL) 10 mg tablet Take 1 tablet by mouth every 8 hours as needed. FOR PAIN OR SPASMS blood sugar diagnostic (FREESTYLE LITE STRIPS) test strip Test blood sugar(s) 4x daily. Dx: E11.65 Insulin: Yes Lancets (FREESTYLE LANCETS) lancets Test blood sugar(s) 1x daily. Dx: 250.00. Insulin: No FAMILY HISTORY Problem Relation Age of Onset - Diabetes Father - Hypertension Mother - COPD Mother - Coronary Artery Disease Father Bypass surgery and [place] 2013 - Diabetes Paternal Grandfather - Cancer Maternal Grandfather unknown - Heart Father - Heart Brother Social History Substance Use Topics - Smoking status: Current Every Day Smoker Packs/day: 0.50 Years: 15.00 Types: Cigarettes - Smokeless tobacco: Never Used Comment: 1/2 pack daily - Alcohol use No PHYSICAL EXAM BP 160/110 Pulse 105 Temp 37.6 ?C (99.6 ?F) (Temporal Artery) Resp (!) 96 Wt 122.9 kg (271 lb) SpO2 96% BMI 34.78 kg/m2 General Appearance: in no acute distress, alert, ill appearing/fatigued Eyes: conjunctiva pink and moist, no icterus, sclera white, non-injected Ears: external ears normal to inspection and palpation, canals clear, Left tympanic membrane normal. , Right tympanic membrane normal Nose/sinus: mucosa erythematous and swollen, maxillary sinus tenderness. External nose erythematous and hot to the touch. Very painful with light palpation. No drainage. Neck: Neck supple, No adenopathy Oropharynx: Moist, normal Lungs: Respirations even and unlabored. Diminished breath sounds with scattered wheezing. No rales or rhonchi. Heart: RRR without murmur, gallop, or rubs. No ectopy Ext: no edema in LE bilaterally, good distal pulses ASSESSMENT/PLAN: 1. Chest tightness - ICD9: 786.59, ICD10: R07.89 (primary diagnosis) Likely secondary to cough and bronchospasm from bronchitis - Electrocardiogram: An ECG today showed normal sinus rhythm at 97 BPM, TX interval 156 ms, normal QRS, normal ST-T, QT 326 ms - Referred to cardiology, see plans below - ECG COMPLETE W INTERPRETATION - CONSULT TO CARDIOLOGY 2. Acute bronchitis, unspecified organism - ICD9: 466.0, ICD10: J20.9 - Discussed viral etiology and rationale for treatment. Encouraged to increase fluids, expect to cough 2-3 weeks - Pharmacologic treatment: Doxycycline 100mg, Robitussin AC 10 cc po qhs, po q4h prn daytimes and Tessalon Perles prn. Continue with Prednisone and Albuterol as prescribed - Follow up as below - CODEINE 10 MG-GUAIFENESIN 100 MG/5 ML ORAL LIQUID 3. Acute non-recurrent sinusitis, unspecified location - ICD9: 461.9, ICD10: J01.90 - Will begin treatment with Doxycline - Supportive care with plenty of fluids, rest, and analgesia prn. - Follow up in 3-5 days if symptoms persist or worsen. 4. Cellulitis of nose, external - ICD9: 682.0, ICD10: J34.0 - Begin treatment with Doxycycline - No lymphangetic streaking, this was defined for patient to watch for and to seek medical care immediately if appears - Area of cellulitis defined with pen, seek further attention if this area continues to enlarge - Follow up for recheck as needed if no improvement after 2-3 days 5. Chest pain, unspecified type - ICD9: 786.50, ICD10: R07.9 Ongoing chest pain. Attempted to review records from [facility] admission 2014. No dictated hospital summary. Echocardiogram and CTA normal. No stress test orders/report found Secondary to diabetes and family history patient needs further evaluation, referred to cardiology Encouraged patient to start taking all medications as ordered including losartan - CONSULT TO CARDIOLOGY During this patient visit I have spent approximately 45 minutes in counseling regarding treatment options, medications and test results and coordinating care. Hope Garcia CNP Prescription instructions reviewed with patient as applicable. Potential red flag symptoms discussed with the patient. Reviewed appropriate action plan to take if red flag symptoms occur. Patient agreeable to treatment plan. CNOV Observed: 06/28/2017 Status: COMPLETED Source: [place] 2:20 PM [facility] REPOSITORY Office Visit (INTMWS) DENVER HOLLINGSWORTH ([id number]) 1980 M Date Time Provider Department 06/28/17 2:20 PM HOPE GARCIA) INTMWS During your visit today, we recorded the following information about you: Temperature Pulse Respiration Blood pressure 99.6 degrees 105/minute 96/minute 140/90 Weight 122.9 kg Hope Older, MAIL TELLER 06/28/2017 3:03 PM Signed CC: Patient presents with: [facility] ER Follow Up HPI Denver Hollingsworth is a 37 year old male who presents today for ER follow-up for bronchitis. Patient presented to ER on 06/25/17 with two month history of cough that was gradually worsening. Also reported headaches and orthopnea. Chest x-ray was negative. Diagnosed with bronchitis secondary to tobacco use. Prescribed course of Prednisone and Albuterol prn. Today patient reports he is worse. Cough, chest tightness and SOB worsening. Cough is non-productive and harsh, no hemoptysis. Treatments tried include Albuterol with no relief. Positive for headaches secondary to cough, nasal congestion, sinus pressure, fatigue, not sleeping, poor appetite. No fever, chills, nausea, vomiting, diarrhea. No history of asthma, emphysema, COPD or frequent episodes of bronchitis. Smokes 1/2 PPD typically. History of DM. History of chest pain a couple years ago. Admitted to [facility]. Patient believes he ANDquot;failed the stress testANDquot; and was supposed to follow-up with cardiology be he never did. Has had frequent episodes of chest pain since then but still no follow-up. Also concerned about swelling and redness of external nose. States he injured his nose a couple weeks ago when a metal gate swung open and caused a cut to the bridge of his nose. Had swelling and bruising of nose and under eyes but resolved. Now nose is swollen, red, hot to the touch and tender. Denies epistaxis or purulent nasal drainage. REVIEW OF SYSTEMS General: no night sweats and no significant changes in weight Cardiovascular: no palpitations, no PND and no swelling. Positive for orthopnea, sleeping on 3 pillows due to SOB when laying flat. PAST MEDICAL HISTORY Diagnosis Date - Attention deficit disorder without mention of hyperactivity diagnosed in childhood - Chronic post-traumatic headache - Depressive disorder, not elsewhere classified 06/10/2012 - DIABETES MELLITUS TYPE II-UNCOMPL 08/30/2008 - Dysmetabolic syndrome X 07/21/2008 - Unspecified essential hypertension 08/30/2008 PAST SURGICAL HISTORY Procedure Laterality Date - EGD W/O OR W/BRUSH/WASH 07/29/13 EGD - PAST SURGICAL HISTORY OF tooth extraction. ALLERGIES Metformin; Vicodin [Hydrocodone-Acetaminophen] MEDICATIONS Insulin Syringe-Needle U-100 0.3 mL 29 gauge x 1/2ANDquot; syrg USE ONE SYRINGE FOR EACH INSULIN DOSE/ [address] (PROTONIX) 40 mg tablet Take 1 tablet by mouth once daily. blood sugar diagnostic (BLOOD GLUCOSE TEST) test strip Test blood sugar(s) 3 times daily. Dx: Type 2 DM - Uncontrolled E11.65 Insulin: Yes Lancets lancets Test blood sugar(s) 3 times daily. Dx: Type 2 DM - Uncontrolled E11.65 Insulin: Yes losartan (COZAAR) 25 mg tablet Take 1 tablet by mouth once daily. DULoxetine (CYMBALTA) 30 mg capsule Take 1 capsule by mouth twice daily. insulin 70/30 NPH/regular units/mL (HUMULIN 70/30) Inject 25 Units subcutaneously twice daily with meals. Adjust as directed cyclobenzaprine (FLEXERIL) 10 mg tablet Take 1 tablet by mouth every 8 hours as needed. FOR PAIN OR SPASMS blood sugar diagnostic (FREESTYLE LITE STRIPS) test strip Test blood sugar(s) 4x daily. Dx: E11.65 Insulin: Yes Lancets (FREESTYLE LANCETS) lancets Test blood sugar(s) 1x daily. Dx: 250.00. Insulin: No FAMILY HISTORY Problem Relation Age of Onset - Diabetes Father - Hypertension Mother - COPD Mother - Coronary Artery Disease Father Bypass surgery and [place] 2012 - Diabetes Paternal Grandfather - Cancer Maternal Grandfather unknown - Heart Father - Heart Brother Social History Substance Use Topics - Smoking status: Current Every Day Smoker Packs/day: 0.50 Years: 15.00 Types: Cigarettes - Smokeless tobacco: Never Used Comment: 1/2 pack daily - Alcohol use No PHYSICAL EXAM BP 160/110 Pulse 105 Temp 37.6 ?C (99.6 ?F) (Temporal Artery) Resp (!) 96 Wt 122.9 kg (271 lb) SpO2 96% BMI 34.78 kg/m2 General Appearance: in no acute distress, alert, ill appearing/fatigued Eyes: conjunctiva pink and moist, no icterus, sclera white, non-injected Ears: external ears normal to inspection and palpation, canals clear, Left tympanic membrane normal. , Right tympanic membrane normal Nose/sinus: mucosa erythematous and swollen, maxillary sinus tenderness. External nose erythematous and hot to the touch. Very painful with light palpation. No drainage. Neck: Neck supple, No adenopathy Oropharynx: Moist, normal Lungs: Respirations even and unlabored. Diminished breath sounds with scattered wheezing. No rales or rhonchi. Heart: RRR without murmur, gallop, or rubs. No ectopy Ext: no edema in LE bilaterally, good distal pulses ASSESSMENT/PLAN: 1. Chest tightness - ICD9: 786.59, ICD10: R07.89 (primary diagnosis) Likely secondary to cough and bronchospasm from bronchitis - Electrocardiogram: An ECG today showed normal sinus rhythm at 97 BPM, TX interval 156 ms, normal QRS, normal ST-T, QT 326 ms - Referred to cardiology, see plans below - ECG COMPLETE W INTERPRETATION - CONSULT TO CARDIOLOGY 2. Acute bronchitis, unspecified organism - ICD9: 466.0, ICD10: J20.9 - Discussed viral etiology and rationale for treatment. Encouraged to increase fluids, expect to cough 2-3 weeks - Pharmacologic treatment: Doxycycline 100mg, Robitussin AC 10 cc po qhs, po q4h prn daytimes and Tessalon Perles prn. Continue with Prednisone and Albuterol as prescribed - Follow up as below - CODEINE 10 MG-GUAIFENESIN 100 MG/5 ML ORAL LIQUID 3. Acute non-recurrent sinusitis, unspecified location - ICD9: 461.9, ICD10: J01.90 - Will begin treatment with Doxycline - Supportive care with plenty of fluids, rest, and analgesia prn. - Follow up in 3-5 days if symptoms persist or worsen. 4. Cellulitis of nose, external - ICD9: 682.0, ICD10: J34.0 - Begin treatment with Doxycycline - No lymphangetic streaking, this was defined for patient to watch for and to seek medical care immediately if appears - Area of cellulitis defined with pen, seek further attention if this area continues to enlarge - Follow up for recheck as needed if no improvement after 2-3 days 5. Chest pain, unspecified type - ICD9: 786.50, ICD10: R07.9 Ongoing chest pain. Attempted to review records from [facility] admission 2014. No dictated hospital summary. Echocardiogram and CTA normal. No stress test orders/report found Secondary to diabetes and family history patient needs further evaluation, referred to cardiology Encouraged patient to start taking all medications as ordered including losartan - CONSULT TO CARDIOLOGY During this patient visit I have spent approximately 45 minutes in counseling regarding treatment options, medications and test results and coordinating care. Hope Garcia CNP Prescription instructions reviewed with patient as applicable. Potential red flag symptoms discussed with the patient. Reviewed appropriate action plan to take if red flag symptoms occur. Patient agreeable to treatment plan. Hope Garcia CNP 06/28/2017 2:39 PM Signed Resume taking blood pressure medication Referring Provider: SELF [[id number]] Allergies As of Date: 06/28/2017 Noted Allergy Reaction METFORMIN 03/25/2012 6 - Diarrhea Comments: even on XR 500 mg once daily VICODIN (HYDROCODONE-ACETAMINOPHE*02/24/2009 8 - GI Upset Date Reviewed: 06/28/2017 Reviewed by: Debi Pérez Violin Maker Hand - Fully Assessed Reason for Visit: [facility] ER Follow Up [Other] Primary Visit Diagnosis:Chest tightness [R07.89] Other Visit Diagnoses:Acute bronchitis, unspecified organism [J20.9] Acute non-recurrent sinusitis, unspecified location [J01.90] Cellulitis of nose, external [J34.0] Chest pain, unspecified type [R07.9] Order(s):ECG COMPLETE W INTERPRETATION [ECG01] Order #: [id number] FUTURE doxycycline monohydrate (MONODOX) 100 mg capsuleTake 1 capsule by mouth twice daily for 10 days.Disp: 20 capsuleRfl: 0 codeine-guaiFENesin (ROBITUSSIN AC) 10-100 mg/5 mL syrupTake 5-10 mL by mouth four times daily as needed for Cough for up to 7 days. May cause drowsiness.Disp: 120 mLRfl: 0 CONSULT TO CARDIOLOGY [9004] Order #: [id number]: 1 Prescriptions as of 06/28/2017 Sig: INSULIN SYRINGE-NEEDLE U-100 * USE ONE SYRINGE FOR EACH INSU* PANTOPRAZOLE 40 MG TABLET,DEL* Take 1 tablet by mouth once d* BLOOD SUGAR DIAGNOSTIC STRIPS Test blood sugar(s) 3 times d* LANCETS Test blood sugar(s) 3 times d* LOSARTAN 25 MG TABLET Take 1 tablet by mouth once d* DULOXETINE 30 MG CAPSULE,DAVID* Take 1 capsule by mouth twice* INSULIN NPH AND REG HUMAN INS* Inject 25 Units subcutaneousl* CYCLOBENZAPRINE 10 MG TABLET Take 1 tablet by mouth every * BLOOD SUGAR DIAGNOSTIC STRIPS Test blood sugar(s) 4x daily.* LANCETS Test blood sugar(s) 1x daily.* DOXYCYCLINE MONOHYDRATE 100 M* Take 1 capsule by mouth twice* CODEINE 10 MG-GUAIFENESIN 100* Take 5-10 mL by mouth four ti* Problem List As Of Date 06/28/2017 Noted Resolved 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 Diabetes mellitus type 2, uncontrolled, without*INVALID FOR* More... Essential hypertension [I10] INVALID FOR* SLEEP APNEA NOS [G47.30] INVALID FOR* More... 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] INVALID FOR* Corns and Callosities [L84] INVALID FOR* Back pain [M54.9] INVALID FOR* Closed fracture of dorsal (thoracic) vertebra w*INVALID FOR* Cervicalgia [M54.2] INVALID FOR* Pain in joint, lower leg [M25.569] INVALID FOR* Depressive disorder, not elsewhere classified [*INVALID FOR* Mixed hyperlipidemia [E78.2] INVALID FOR* Anal fissure [K60.2] INVALID FOR* Other instructions from your clinician: Resume taking blood pressure medication Prescriptions ordered this encounter Disp Refills Start End DOXYCYCLINE MONOHYDRATE 100 MG CAPSU* 20 c* 0 06/28/2017 07/08/2017 Route: ORAL Sig: Take 1 capsule by mouth twice daily for 10 days. CODEINE 10 MG-GUAIFENESIN 100 MG/5 M* 120 * 0 06/28/2017 07/05/2017 Class: Print RX Route: ORAL Sig: Take 5-10 mL by mouth four times daily as needed for Cough for up to 7 days. May cause drowsiness. Letter Text Department of Internal Medicine [address] [id number] Denver Hernandezivonne [address] [place] [id number] June 28, 2017 TO WHOM IT MAY CONCERN: This is to certify that Denver Maria Esther Hollingsworth has been under the care of Hope Garcia CNP and was unable to work from 06/27/17 through 06/30/17. [place] may return to work on 07/01/17 with no restrictions. Sincerely yours, Hope Garcia CNP Encounter Status:Closed by HOPE GARCIA CNP on 06/28/17 EMERGENCY DEPARTMENT Observed: 06/25/2017 Status: F Source: [place] SUMMARY 6:16 PM [facility] Medical Records Department [address] [place] [address] Emergency Department Summary 06/25/17 1259 MR#: [id number] Acct: [id number] Name: DENVER HOLLINGSWORTH Rep #: [id number] : 1980 37 From: Robbin Hdz MD PCP: Michelle Brown MD Status: DEP ER - ER Visit Summary Date of Service: 06/25/17 Chief Complaint: Cough History of Present Illness: The patient is a 37 M presenting for evaluation secondary to cough. Patient states that he has had approximately a month to 2 months of cough, but recently he has been having some posttussive emesis, increase of his cough, headaches and orthopnea. Denies any presence of fevers. Denies any chest pain. Patient states that he is about a half a pack a day smoker. He does endorse some nasal congestion. Review of systems otherwise negative. Physical Examination: Vital signs notable for blood pressure 209/112, heart rate of 104. Well-nourished male no acute distress. Head normal cephalic atraumatic no sinus tenderness to percussion. Normal external ear canals. Nose normal to inspection. There was some posterior pharyngeal erythema without any evidence of posterior fullness asymmetry tonsillar swelling or exudates. There is bilateral anterior cervical lymphadenopathy that was nontender. Heart was regular rate and rhythm. Lungs sounds showed evidence of some mild wheezes left greater than right remainder physical otherwise unremarkable. Test Results: PA and lateral chest x-ray shows no evidence of infiltrate Emergency Department Course and Treatment: Patient presented for evaluation secondary to a respiratory illness. X-ray was negative. Patient was treated with albuterol and prednisone. Repeat evaluation showed symptomatic improvement. This point he likely has an element of bronchitis likely secondary to his chronic tobacco use. Patient will be given a course of prednisone and albuterol and follow-up with his PCP. Disposition: Discharge Impression: 1. Bronchitis This note was generated with enymotionation software. It may contain incorrect words, spelling, and punctuation that were not noted in review of the chart prior to signing ED Disposition - Plan for ED Patient: Disposition: Home or Assisted Living Chief Complaint: Cold Sx Diagnosis: Bronchitis Instructions: ED Bronchitis Asthmatic Prescriptions: Albuterol Inhaler [Ventolin Hfa] 1 - 2 puff INHALATION Q4H PRN PRN #1 inhaler PRN Reason: Wheezing Prednisone [Deltasone] 60 mg PO DAILY #15 tab Referrals: Michelle Brown MD [Primary Care Provider] - 10-14 Days if not better What to do if you have Problems For any increased pain, shortness of breath, bleeding, nausea or vomiting, chest pain, or any unexpected problems, contact your Primary Care Provider. Call [facility] ([phone]) or report to the closest Emergency Room. Call 911 if necessary. 06/25/176 <Electronically signed by Robbin Hdz MD> Date Robbin Hdz MD Cosigner Signature (If Indicated): Date CC: Michelle Brown MD CHEST PA AND LATERAL Observed: 06/25/2017 Status: F Source: [place] 11:59 AM [facility] Imaging Services [address] [place] [id number] Chest PA and Lateral MR#: [id number] Acct: [id number] Name: DENVER HOLLINGSWORTH Rep #: [id number] : 1980 M 37 From: Wilfrid Walden MD PCP: Michelle Brown MD Status: REG ER Study: Chest PA and Lateral Date of Exam: 06/25/17 Exam# [id number] Ordering Dr: Robbin Hdz MD STUDY: X-RAY CHEST REASON FOR EXAM: Male, 37 years old. Cough and chest congestion. Five-day history of shortness of breath. TECHNIQUE: PA and lateral views of the chest. COMPARISON: Comparison is made with prior study dated May 28, 2016. FINDINGS: The lungs are clear and expanded. Scattered calcified granulomas. There is no demonstrated pleural abnormality. Normal size heart. Normal mediastinum and matthew. Normal visualized pulmonary arteries. Normal visualized aortic arch and descending thoracic aorta. Normal visualized thoracic spine. Normal visualized ribs, clavicles, and shoulders. There is no demonstrated abnormality of the visualized soft tissue structures of the upper abdomen. RAD/Chest PA and Lateral IMPRESSION: Normal x-ray examination of the chest. Electronically Signed: Wilfrid Walden MD at 12:32 EST Tel [phone], Service support , CC: Michelle Brown MD; Robbin Hdz Superintendent System Operation: Signed ALLERGIES ALLERGIES DATE TYPE / CODE NAME / CODE REACTION SEVERITY SOURCE 05/20/2018 Drug hydrocodone Nausea Unknown [place] Allergy/416 bitartrate/[id number] [facility] 396835([place] [address] Repository 06/30/2017 Drug metformin/[id number] Nausea Unknown [place] Allergy/416 34(RXNORM) [facility] 092783([facility] ED CT) Repository 03/25/2012 DRUG METFORMIN DIARRHEA [facility] INGREDI/419 [place] 393068(SN Repository ED CT) 02/24/2009 DRUG/966121 HYDROCODONE-ACETAM GI UPSET [facility] 003(SNOMED INOPHEN [place] CT) Repository ENCOUNTERS ENCOUNTERS ADMIT/DISCHARGE ACCOUNT NUMBER ADMITTING ENCOUNTER LOCATION SOURCE CLASS 05/20/2018/05/21/20 [id number] [place]ost[place], Inpatient Edson Edson [address] [place] Encounter [facility] [id number]: 1 05/20/2018 [id number] [place]ost[place], Ambulatory BMSBuilding: Edson William BMS.WIP [facility] [place] 05/20/2018 [id number] [facility], Ambulatory BMSBuilding: [place] BMS.Critical access hospital Repository 05/20/2018/05/21/20 [id number] Ambulatory [address] [place] Repository 05/16/2018/05/19/20 [id number] Ambulatory [address] Repository 05/14/2018/05/14/20 [id number] Emergency BBuilding:JAYNE Gutierrez [address] [place] [address] Repository 04/03/2018/04/04/20 [id number] Ambulatory [address] [place] Repository 03/11/2018/03/11/20 [id number] Emergency Marlow Edson[address] ding:ED Repository 01/16/2018/01/17/20 [id number] Ambulatory [address] [place] Repository 01/16/2018/01/18/20 [id number] Ambulatory [address] [place] Repository 09/30/2017/10/01/19 [id number] Ambulatory [address] [place] Repository 09/11/2017/09/12/19 [id number] Ambulatory [address] [place] Repository 09/11/2017/09/12/19 [id number] Ambulatory [address] [place] Repository 06/30/2017/06/30/19 [id number] Emergency [place] Edson[address] ding:ED Repository 06/28/2017 [id number] Ambulatory [facility] Repository 06/25/2017/06/25/19 [id number] Emergency Edson Edson [address] [place] [address] ding:ED Repository PAYERS PAYERS ENCOUNTER GUARANTOR PAYER SUBSCRIBER SOURCE 05/20/2018 DEN[place] Mayo Primary NOT GIVENUNK Edson [id number] Insurance:SELF PAY [address] Number: Effective Repository [phone]: ([phone]) Date:2018-05-20 [phone] () 05/20/2018 [place] Mayo Primary NOT GIVENUNK Edson [id number] Insurance:SELF PAY [address] Number: Effective Repository [phone]: (330) Date:2018-05-20 [phone] () 05/20/2018 [place] Mayo Primary NOT GIVENUNK Edson [id number] Insurance:SELF PAY Community [address] Number: Effective Repository [phone]: (330) Date:2018-05-20 [phone] () 05/14/2018 DENVER Mayo Primary DENVER E [facility] LANDFAIRDOB: Insurance:SELF PAY LANDFAIRDOB: [facility] INSCOPolicy Number: [id number] Repository [address] [place] [address] Date:2018-05-14 - [address] [place] [id number]: [phone] [id number] Name:[id number]: (HP) [phone] () () 03/11/2018 DEN[place] Mayo Primary NOT GIVENUNK E[place]on [id number] Insurance:SELF PAY Community [address] Number: Effective Repository [phone]: ([phone]) Date:2018-03-11 [phone] () 06/30/2017 [place] Mayo Primary Mark LandfairDOB: Marlow [id number] Insurance:ANTHEMPolic [id number] Community [address] y Number: [address] [id number] Repository [address]Yvr: (330) Date:0528-50-35ZF [phone] () [id number] GATES [id number]: 06/30/2017 Secondary NOT GIVENUNK Edson Insurance:SELF PAY [facility] Number: Effective Repository Date:2017-06-30 06/25/2017 [place] Mayo Primary Mark LandfairDOB: Edson [id number] Insurance:ANTHEMPolic [id number] Community [address] y Number: [address] [id number] Repository [address]Hqg: ([phone]) Date:3457-74-89WH [phone] () [id number] GATES [address]NZ: 06/25/2017 Secondary NOT GIVENUNK Mar[place] Insurance:SELF PAY [facility] Number: Effective Repository Date:2017-06-25
== END 2018-05-21 13:18 | disposition home or self-care (01) | DRG 638 ==
LOC: ED 13:19 → PCU 16:35
PROVIDERS: Admitting Provider Internal Medicine; Emergency Provider Emergency Medicine; Family Provider Internal Medicine; PCP Internal Medicine; Referring Provider Internal Medicine; Visit Provider Hospitalist
DX: E11.65 Type 2 diabetes mellitus with hyperglycemia (principal); N17.9 Acute kidney failure, unspecified; T38.0X5A Adverse effect of glucocorticoids and synthetic analogues, initial encounter; E86.0 Dehydration; I10 Essential (primary) hypertension; K21.9 Gastro-esophageal reflux disease without esophagitis; J04.0 Acute laryngitis; N45.3 Epididymo-orchitis; E66.01 Morbid (severe) obesity due to excess calories; Z68.33 Body mass index [BMI] 33.0-33.9, adult; G89.29 Other chronic pain; Z79.84 Long term (current) use of oral hypoglycemic drugs; F17.210 Nicotine dependence, cigarettes, uncomplicated
CPT/HCPCS: 36415; 71046; 80048; 80076; 81001; 82009; 82962; 83036; 83735; 85025; 87086; 87088; 87491; 87591; 93005; 94640; 97802; 99284; J7030; A4216

== ENCOUNTER 2018-07-31 16:34 | Emergency (ER) | payer SELFPAY ==
[2018-05-20 16:56] VITALS: BMI 33.7
[2018-07-31 16:35] VITALS: BP 164/92; PULSE 101; PULSE 102; RESP 14; RESP 16; TEMP 36.6; O2SAT 93; O2SAT 95; BMI 37.5
--- NOTE | 2018-07-31 16:42 | CT_ITS ---
STUDY: CTA CHEST REASON FOR EXAM: Male, 38 years old. Chest pain for 3 days. RADIATION DOSAGE (If Supplied By Facility): CTDIvol = ( 21.71 ) mGy, DLP = ( 794.57 ) mGycm TECHNIQUE: The examination was performed with the intravenous administration of 100 ml of Isovue 370 contrast material. Post-processing of the angiographic images was performed, with multiplanar reformation and 3D reconstruction. Individualized dose optimization techniques were used for this CT. COMPARISON: Chest radiograph of May 20, 2018 and a prior chest CT exam of June 30, 2017. FINDINGS: Normal enhancement of the main pulmonary artery and right and left pulmonary arteries. Normal enhancement of the bilateral peripheral pulmonary arteries. There is no demonstrated pulmonary embolism. Normal thoracic aorta and visualized great vessels. There is no demonstrated aortic dissection. Normal heart and pericardium. Normal mediastinum. Normal hilar regions. Normal visualized trachea and bronchi. The lungs are well expanded. Normal pulmonary parenchyma. Normal pleura. Normal chest wall structures. There are degenerative changes of thoracic spine. Normal visualized upper abdomen. CT/CTA Chest W/WO Contrast IMPRESSION: Normal CTA chest examination, without a demonstrated pulmonary embolism or arterial dissection. Electronically Signed: Brandi Tse MD at 19:24 EST , Service support ,
--- NOTE | 2018-07-31 16:43 | EKG12_ITS ---
Test Reason : CP Blood Pressure : / mmHG Vent. Rate : 099 BPM Atrial Rate : 099 BPM P-R Int : 170 ms QRS Dur : 084 ms QT Int : 312 ms P-R-T Axes : 027 022 017 degrees QTc Int : 400 ms Normal sinus rhythm Normal ECG Confirmed by RODNEY NAYAK MD ([id number]), marketing editor [place] MENENDEZ ([id number]) on 08/04/2018 10:41:09 AM Referred By: MOIRA Confirmed By:RODNEY NAYAK MD
--- NOTE | 2018-07-31 16:43 | ED.VISSUMM ---
- ER Visit Summary Date of Service: 07/31/18 Chief Complaint: Chest pain History of Present Illness: The patient is a 38 M presenting with chest pain. He states that this started 2-3 days ago. He states initially it was intermittent but has been more constant today. He has pain with deep inspiration. Pain is in his right upper chest. He has associated shortness of breath. He denies fever or cough. He has a history of diabetes, hypertension, hypercholesterolemia. He has a family history of heart disease with his father having an [place] age over 55. He is a smoker. He has a family history of DVT. No other PE/DVT risk factors. Physical Examination: Vitals are stable. Patient is afebrile. Alert no acute distress. HEENT exam is unremarkable. Neck is supple. Lungs are clear and equal bilaterally. Right upper chest tender to palpation with no crepitus. Heart is regular rate and rhythm. Abdomen is soft nontender nondistended. Extremities are unremarkable. Skin is warm and dry. No focal neurologic deficit. Remainder of exam is unremarkable. Emergency Department Course and Treatment: Patient was given aspirin on arrival. EKG is sinus rate of 99 with no acute ischemic changes. CBC normal except for platelet 143. Chemistries normal except glucose 380. Troponin is negative. CTA chest shows no evidence of PE or dissection. Patient is chest pain free on re-evaluation. Delta troponin was drawn and patient is unwilling to wait for these results. He signed out AGAINST MEDICAL ADVICE. He is advised risks including [place] and . Patient understands and chooses to sign out AGAINST MEDICAL ADVICE. He is advised to return to the ED if he has worsening complaints. Disposition: Left AGAINST MEDICAL ADVICE Impression: Chest pain This note was generated with Fanitics dictation software. It may contain incorrect words, spelling, and punctuation that were not noted in review of the chart prior to signing ED Disposition - Plan for ED Patient: Referrals: Chio Brown MD [Primary Care Provider] -
--- NOTE | 2018-07-31 16:46 | ED.DCSUM_ITS ---
- ER Visit Summary Date of Service: 07/31/18 Chief Complaint: Chest pain History of Present Illness: The patient is a 38 M presenting with chest pain. He states that this started 2-3 days ago. He states initially it was intermittent but has been more constant today. He has pain with deep inspiration. Pain is in his right upper chest. He has associated shortness of breath. He denies fever or cough. He has a history of diabetes, hypertension, hypercholesterolemia. He has a family history of heart disease with his father having an PA age over 55. He is a smoker. He has a family history of DVT. No other PE/DVT risk factors. Physical Examination: Vitals are stable. Patient is afebrile. Alert no acute distress. HEENT exam is unremarkable. Neck is supple. Lungs are clear and equal bilaterally. Right upper chest tender to palpation with no crepitus. Heart is regular rate and rhythm. Abdomen is soft nontender nondistended. Extremities are unremarkable. Skin is warm and dry. No focal neurologic deficit. Remainder of exam is unremarkable. Emergency Department Course and Treatment: Patient was given aspirin on arrival. EKG is sinus rate of 99 with no acute ischemic changes. CBC normal except for platelet 143. Chemistries normal except glucose 380. Troponin is negative. CTA chest shows no evidence of PE or dissection. Patient is chest pain free on re-evaluation. Delta troponin was drawn and patient is unwilling to wait for these results. He signed out AGAINST MEDICAL ADVICE. He is advised risks including PA and . Patient understands and chooses to sign out AGAINST MEDICAL ADVICE. He is advised to return to the ED if he has worsening complaints. Disposition: Left AGAINST MEDICAL ADVICE Impression: Chest pain This note was generated with GetO2 dictation software. It may contain incorrect words, spelling, and punctuation that were not noted in review of the chart prior to signing ED Disposition - Plan for ED Patient: Referrals: Chio Brown MD [Primary Care Provider] -
[2018-07-31 16:58] LABS: Absolute Lymphocyte Count 2.38 X10^3/ul (0.83-4.51); Absolute Neutrophil Count 4.4 X10^3/uL (2.0-7.7); Basophil# 0.04 X10^3/uL; Basophil% 0.5 % (0-1); Eosinophil# 0.12 X10^3/uL; Eosinophils% 1.5 % (0-5); Hematocrit 43.6 % (40-54); Hemoglobin 15.7 g/dl (13.0-16.5); Lymphocyte # 2.38 X10^3/ul (4.0); Lymphocyte % 30.7 % (19-41); Mean Corpuscular Hgb 29.8 pg (27.0-32.0); Mean Corpuscular Volume 82.9 fL (80-94); Mean Platelet Vol. 11.7 fl (6.2-12.0); Monocyte# 0.81 X10^3/uL; Monocyte% 10.4 % (0-10); Neutrophil # 4.36 X10^3/uL (2.7-7.7); Neutrophil % 56.3 % (47-70); Platelet Count 143 K/mm3 (150-450); RBC Distribution Width CV 12.1 % (11.6-14.6); RBC Distribution Width SD 36.2 fl (35.1-43.9); Red Blood Count 5.26 M/mm3 (4.6-6.2); White Blood Count 7.8 K/mm3 (4.4-11.0)
[2018-07-31 17:03] LABS: POSITIVE COUNT NO; POSITIVE DIFFERENTIAL NO; POSITIVE MORPHOLOGY NO
[2018-07-31] MEDS: Aspirin 81 MG TAB.CHEW 324 MG PO (17:24)
[2018-07-31 18:11] LABS: Anion Gap 13 (5-15); BUN 17 mg/dL (7-18); BUN/Creat Ratio 14.5 RATIO (10-20); Calcium,Total 8.6 mg/dL (8.5-10.1); Chloride 100 mmol/L (98-107); Creatinine, Serum 1.17 mg/dL (0.70-1.30); EST Glomerular Filtration Rate 74 mL/min (>60); Est Glom Filt Rate - Afr Amer 90 mL/min (>60); Glucose 380 mg/dL (74-106); Potassium 4.4 mmol/L (3.5-5.1); Sodium Level 137 mmol/L (136-145)
[2018-07-31] MEDS: LORazepam 2 MG/ML Syringe 1 MG IV (18:16)
[2018-07-31 19:02] VITALS: BP 158/94; PULSE 88; RESP 19; O2SAT 94
--- NOTE | 2018-07-31 20:21 | ED.RN ---
pt ripping iv out and demanding to leave. pt signed an AMA form. aware of risks.
== END 2018-07-31 20:45 | disposition left against medical advice (07) ==
LOC: ED 17:09
PROVIDERS: Emergency Provider Emergency Medicine; Family Provider Internal Medicine; PCP Internal Medicine
DX: R07.9 Chest pain, unspecified (principal); I10 Essential (primary) hypertension; E11.9 Type 2 diabetes mellitus without complications; E78.00 Pure hypercholesterolemia, unspecified; F17.200 Nicotine dependence, unspecified, uncomplicated; Z53.21 Procedure and treatment not carried out due to patient leaving prior to being seen by health care provider; F32.9 Major depressive disorder, single episode, unspecified; F41.9 Anxiety disorder, unspecified; Z79.4 Long term (current) use of insulin; Z79.899 Other long term (current) drug therapy; Z82.49 Family history of ischemic heart disease and other diseases of the circulatory system
CPT/HCPCS: 71275; 80048; 84484; 85025; 93005; 96374; 99285; Q9967; A4216

== ENCOUNTER 2018-10-26 21:56 | Emergency (ER) | payer SELFPAY ==
[2018-10-26 21:56] VITALS: BP 175/103; PULSE 99; RESP 15; TEMP 36.9; BMI 38.3
--- NOTE | 2018-10-26 22:11 | RAD_ITS ---
STUDY: X-RAY - LEFT FOOT CLINICAL: Male, 38 years old. Horse stepped on foot TECHNIQUE: 3 view(s) of the foot. COMPARISON: None. FINDINGS: Normal talus, calcaneus, and tarsal bones. Normal visualized subtalar, talonavicular, calcaneocuboid, tarsal and tarsometatarsal articulations. Normal metatarsi. Normal metatarsophalangeal joint of the great toe. Normal tibial and fibular sesamoid bones. Normal interphalangeal joint of the great toe. Normal phalanges of the great toe. Normal second through fifth metatarsophalangeal joints. Normal interphalangeal joints and phalanges of the lesser toes. The soft tissue structures are unremarkable. RAD/Foot min 3 Views IMPRESSION: Normal x-ray examination of the foot. No acute fractures Electronically Signed: Rafael Plasencia MD at 1:58 EDT Tel , Service support ,
--- NOTE | 2018-10-26 22:11 | RAD_ITS ---
STUDY: X-RAY - LEFT ANKLE REASON FOR EXAM: Male, 38 years old. Pain after trauma TECHNIQUE: 3 view(s) of the ankle. COMPARISON: None. FINDINGS: Normal visualized distal tibia and fibula. Normal medial and lateral malleoli. Normal tibiotalar articulation and ankle mortise. Normal visualized talus and calcaneus. The visualized subtalar, talonavicular, calcaneocuboid and tarsal articulations are normal. The soft tissue structures are unremarkable. RAD/Ankle min 3 Views IMPRESSION: Normal x-ray examination of the ankle. Electronically Signed: Harsha Fofana MD at 22:35 EDT , Service support ,
--- NOTE | 2018-10-26 22:14 | ED.DCSUM_ITS ---
History of Present Illness Chief Complaint: Lower Extremity Injury Informant: Patient Onset: Today Narrative: Left foot injury prior to arrival. States horse stomped on his foot. Unable to walk. History of bilateral foot fractures with no surgical intervention in the past due to sports injury. Allergy to [place] causing stomach upset as tolerated oxycodone in the past. No other injuries. Prior similar symptoms: No Past Medical History - Allergies and Home Meds Allergies/Adverse Reactions: Allergies hydrocodone bitartrate [From Vicodin] Adverse Reaction (Verified 10/26/18 22:01) Nausea Primary Care Physician: Chio Brown MD [Primary Care Provider] - Surgical History: no surgical history Smoking Status: Current every day smoker - Family History Paternal Family History: Reports: Diabetes, Heart Disease Maternal Family History: Reports: Heart Disease Review of Systems All systems negative except as indicated General: Denies: Fever Cardiovascular: Denies: Chest pain Respiratory: Denies: Dyspnea Gastrointestinal: Denies: Abdominal pain Musculoskeletal: Reports: Arthralgias Skin: Reports: Wounds Neurological: Denies: Parasthesia Physical Exam Vital Signs/Narrative: Vital Signs Temp Pulse Resp BP 10/26/18 21:56 98.4 F 99 15 175/103 H Inital Vital Signs reviewed: Yes General: Well nourished, Well developed, No Acute Distress Head: Normocephalic, Atraumatic Eyes: Perrl, EOMI ENT: Moist mucous membranes, No rhinorrhea Neck: Supple, Nontender Cardiovascular: Regular rate, Regular rhythm, No murmurs Respiratory: No distress, CTA bilaterally, Chest nontender Abdomen: Soft, Nontender, Nondistended, Normal bowel sounds Back: Nontender, Normal Inspection Extremities: Tenderness - Left lower extremity: There is mild tenderness distal fibula with no swelling. No malleolar tenderness. Significant swelling and tenderness mid lateral foot at cuboid region, abrasion noted. Skin intact. No proximal fifth base tenderness. Skin: Normal color, No rash Neurological: Alert, Oriented x3, Cranial nerves II-XII grossly intact, Normal Strength, Normal Sensation Psychological: Normal affect, Normal Mood Diagnostic/Tx/Re-eval Left ankle and foot x-ray: No fracture or dislocation. - Medical Decision Making Patient significant swelling right at the cuboid region. Skin intact. Ice was placed. Treated with oxycodone due to his pain. X-ray left ankle and foot obtain reviewed by myself there is no acute process. Radiology did finalized ankle films which were negative. Foot was pending however with good views of the ankle at the cuboid there is no acute process in this region. Discussed this with patient and family. He has ibuprofen at home she will start taking every 6 hours. Willie wrap crutches provided. Rice therapy. Short prescription of Percocet for symptom control. Follow-up with PCP reevaluation if symptoms persist a week later. All questions were answered. ED Disposition - Plan for ED Patient: Disposition: Home or Assisted Living Diagnosis: Contusion of left foot, initial encounter Instructions: ED Contusion Lower Ext Prescriptions: Oxycodone HCl/Acetaminophen [Percocet 5/325] 1 tablet PO Q6H PRN PRN 3 Days #12 tablet PRN Reason: Pain Referrals: Chio Brown MD [Primary Care Provider] - 1 Week if not improving
[2018-10-26] MEDS: oxyCODONE 5 MG Tablet PO (22:16)
== END 2018-10-26 23:54 | disposition home or self-care (01) ==
PROVIDERS: Emergency Provider Emergency Medicine; Family Provider Internal Medicine; PCP Internal Medicine
DX: S90.32XA Contusion of left foot, initial encounter (principal); W55.12XA Struck by horse, initial encounter; Y93.9 Activity, unspecified; Y92.9 Unspecified place or not applicable; F17.200 Nicotine dependence, unspecified, uncomplicated
CPT/HCPCS: 73610; 73630; 99283

== ENCOUNTER 2019-05-23 13:13 | Emergency (ER) | payer SELFPAY ==
[2019-05-23 13:15] VITALS: BP 166/107; PULSE 105; RESP 28; TEMP 36.8; O2SAT 94; BMI 37.3
--- NOTE | 2019-05-23 13:36 | EKG12_ITS ---
Test Reason : CP Blood Pressure : / mmHG Vent. Rate : 104 BPM Atrial Rate : 104 BPM P-R Int : 164 ms QRS Dur : 074 ms QT Int : 312 ms P-R-T Axes : 031 011 004 degrees QTc Int : 410 ms Sinus tachycardia Possible Left atrial enlargement Borderline ECG Confirmed by RODNEY NAYAK MD ([id number]), graphic editor [place] MENENDEZ ([id number]) on 05/25/2019 2:47:11 PM Referred By: STEPHANI Confirmed By:RODNEY NAYAK MD
[2019-05-23] MEDS: Aspirin 81 MG TAB.CHEW 324 MG PO (13:44)
--- NOTE | 2019-05-23 13:55 | ED.VISSUMM ---
- ER Visit Summary Date of Service: 05/23/19 Chief Complaint: Anterior chest pain History of Present Illness: The patient is a 38 M history of diabetes, hypertension high cholesterol. Patient is a smoker about half pack a day. States for 3 to 4 days with a constant anterior chest pain. No radiation going on. No nausea or diaphoresis. Nonexertional. Both with movement. Better if he did not break 45 degree position. He never had cardiac disease. He never had a DVT or PE. He denies any recent travel, surgery or immobilization. He denies any calf pain or swelling. He denies any pleuritic chest pain or hemoptysis. He has never had a heart cath or a stress test. 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 Physical Examination: Clinically no afebrile. Pulse ox is 94, management of hypoxia. 8 EENT exam unremarkable. Neck nontender no JVD no lymphadenopathy. Lungs clear to auscultation bilaterally. Heart regular rhythm rate about 95 no murmur. Chest wall is reproducibly tender diffusely primarily on the sternum. No blood in the bleeding. No air nor crepitance. This is consistent with chest wall strain. Abdomen soft nontender normal bowel sounds no peritoneal signs. Nondistended. Patient moving all 4 extremities neurovascular intact. Equal symmetrical director of knowledge management strength. With plantarflexion intact. Equal symmetrical radial pulses. Calves are nontender without edema or cords. Back is nontender. Neurologically he is awake alert with no focal motor deficits. Test Results: EKG shows a sinus rhythm rate of 104 with no acute signs of OR or ischemia. No S1Q3T3. Chest x-ray shows no acute abnormality. Normal cardiac silhouette mediastinum. Read both by myself and radiologist. Unremarkable with a normal creatinine gap. Glucose is elevated to 1. Troponin normal. Emergency Department Course and Treatment: Clinically this appears to be chest wall strain and reproducible. Is been coughing for 3 to 4 days. Due to his diabetes and smoking history we will undergo a cardiac work-up clinically I do not think this is going to be cardiac and I do not think that the pulmonary embolus. He has no history of DVT or PE or with active. He has had negative CTA in the past. Motrin for pain in the ER Treatment Plan: Repeat exam patient doing well at 15:22. Will be discharged home. Disposition: Discharge Impression: Acute chest pain secondary chest wall strain History of diabetes noncompliant with his insulin and his therapy History of hypertension and high cholesterol Tobacco abuse This note was generated with Pur[employer] dictation software. It may contain incorrect words, spelling, and punctuation that were not noted in review of the chart prior to signing ED Disposition - Plan for ED Patient: Referrals: Chio Brown MD [Primary Care Provider] -
[2019-05-23 14:00] LABS: Absolute Lymphocyte Count 1.11 X10^3/uL (0.83-4.51); Absolute Neutrophil Count 5.9 X10^3/uL (2.0-7.7); Basophil# 0.03 X10^3/uL; Basophil% 0.4 % (0-1); Eosinophil# 0.09 X10^3/uL; Eosinophils% 1.1 % (0-5); Hematocrit 44.8 % (40-54); Lymphocyte # 1.11 X10^3/ul (4.0); Lymphocyte % 13.8 % (19-41); Mean Corp Hgb Conc 35.7 g/dL (32-36); Mean Corpuscular Hgb 30.1 pg (27.0-32.0); Mean Corpuscular Volume 84.2 fL (80-94); Mean Platelet Vol. 11.6 fl (6.2-12.0); Monocyte# 0.88 X10^3/uL; Monocyte% 10.9 % (0-10); NRBC Flagged by Analyzer 0 % (0-5); Neutrophil # 5.93 X10^3/uL (2.7-7.7); Neutrophil % 73.4 % (47-70); Platelet Count 124 K/mm3 (150-450); RBC Distribution Width CV 12.4 % (11.6-14.6); RBC Distribution Width SD 37.4 fl (35.1-43.9); Red Blood Count 5.32 M/mm3 (4.6-6.2); White Blood Count 8.1 K/mm3 (4.4-11.0)
[2019-05-23 14:14] LABS: Anion Gap 6 (5-15); BUN 10 mg/dL (7-18); BUN/Creat Ratio 10.7 RATIO (10-20); Calcium,Total 8.8 mg/dL (8.5-10.1); Chloride 101 mmol/L (98-107); Creatinine, Serum 0.94 mg/dL (0.70-1.30); EST Glomerular Filtration Rate 95 mL/min (>60); Est Glom Filt Rate - Afr Amer 115 mL/min (>60); Estimated Creatinine Clearance 130.82 ml/min; Glucose 271 mg/dL (74-106); Potassium 4.5 mmol/L (3.5-5.1); Sodium Level 135 mmol/L (136-145)
[2019-05-23] MEDS: Ibuprofen 600 MG Tablet PO (14:25)
--- NOTE | 2019-05-23 14:54 | RAD_ITS ---
STUDY: X-RAY CHEST REASON FOR EXAM: Male, 38 years old. Chest pain. TECHNIQUE: Single AP portable view of the chest. COMPARISON: 20 May 2018 FINDINGS: The lungs are clear and expanded. There is no demonstrated pleural abnormality. Normal size heart. Normal mediastinum and matthew. Normal visualized pulmonary arteries. Normal visualized aortic arch and descending thoracic aorta. Normal visualized thoracic spine. Normal visualized ribs, clavicles, and shoulders. There is no demonstrated abnormality of the visualized soft tissue structures of the upper abdomen. RAD/Chest 1 View (Portable) IMPRESSION: No evidence of acute cardiopulmonary process. Electronically Signed: Mal Martinez DO at 15:18 EST , Service support ,
[2019-05-23 15:20] VITALS: BP 141/77
--- NOTE | 2019-05-23 15:23 | ED.DEP ---
ED Disposition - Plan for ED Patient: Disposition: Home or Assisted Living Instructions: Chest Wall Strain Referrals: Chio Brown MD [Primary Care Provider] - As Needed Additional Instructions: Ice to chest wall. Tylenol for pain. Motrin medication of your chest wall history of progressively improved. Follow-up with your doctor as needed. You need to start checking her blood sugars regularly. Minimum twice a day. You also need to stop smoking.
== END 2019-05-23 15:32 | disposition home or self-care (01) ==
PROVIDERS: Emergency Provider Emergency Medicine; Family Provider Internal Medicine; PCP Internal Medicine
DX: S29.011A Strain of muscle and tendon of front wall of thorax, initial encounter (principal); X58.XXXA Exposure to other specified factors, initial encounter; Y93.89 Activity, other specified; I10 Essential (primary) hypertension; E11.9 Type 2 diabetes mellitus without complications; E78.00 Pure hypercholesterolemia, unspecified; F17.210 Nicotine dependence, cigarettes, uncomplicated; Z91.14 Patient's other noncompliance with medication regimen; Z79.4 Long term (current) use of insulin; Z79.84 Long term (current) use of oral hypoglycemic drugs; Z79.899 Other long term (current) drug therapy
CPT/HCPCS: 71045; 80048; 84484; 85025; 93005; 99285

== ENCOUNTER 2020-09-23 19:18 | Emergency (ER) | payer SELFPAY ==
[2020-09-23 19:18] VITALS: BP 171/120; PULSE 85; RESP 18; TEMP 36.1; O2SAT 96; BMI 35.3
[2020-09-23] MEDS: Ondansetron 4 MG/2 ML Vial IV (19:42)
[2020-09-23] MEDS: Morphine 4 MG/ML Syringe IV (19:42)
[2020-09-23] MEDS: 0.9% Normal Saline 1,000 ML 1000 ML IV (19:43)
[2020-09-23 20:10] LABS: Absolute Lymphocyte Count 2.05 X10^3/uL (0.83-4.51); Absolute Neutrophil Count 3.2 X10^3/uL (2.0-7.7); Basophil# 0.04 X10^3/uL; Basophil% 0.7 % (0-1); Eosinophil# 0.15 X10^3/uL; Eosinophils% 2.5 % (0-5); Lymphocyte # 2.05 X10^3/ul (4.0); Lymphocyte % 34.2 % (19-41); Mean Corp Hgb Conc 37.2 g/dL (32-36); Mean Corpuscular Hgb 30.9 pg (27.0-32.0); Mean Corpuscular Volume 83.2 fL (80-94); Mean Platelet Vol. 11.1 fl (6.2-12.0); Monocyte# 0.55 X10^3/uL; Monocyte% 9.2 % (0-10); NRBC Flagged by Analyzer 0 % (0-5); Neutrophil # 3.17 X10^3/uL (2.7-7.7); Neutrophil % 52.9 % (47-70); Platelet Count 196 K/mm3 (150-450); RBC Distribution Width CV 11.6 % (11.6-14.6); Red Blood Count 5.17 M/mm3 (4.6-6.2)
[2020-09-23 20:15] LABS: Bacteria 0 SEEN /hpf (None Seen); Mucous, Urine 0 SEEN /hpf (<or=2+); Red Blood Cells-Urine 0 SEEN /hpf (0-5); White Blood Cells 0 SEEN /hpf (0-5)
--- NOTE | 2020-09-23 20:23 | ED.VIS.GEN ---
History of Present Illness Chief Complaint: Abd Pain Informant: Patient Narrative: 40 year-old male presents with concern for epigastric pain. Has been having this pain intermittently for 1 week. Denies any nausea or vomiting. Was seen by his primary care physician who did basic lab work and patient was found to have a significantly elevated triglyceride level. Was sent to the emergency department to rule out pancreatitis. Denies any fever, chills, cough, constipation, diarrhea, urinary symptoms. Denies any alcohol abuse. Past Medical History - Allergies and Home Meds Allergies/Adverse Reactions: Allergies hydrocodone bitartrate [From Vicodin] Adverse Reaction (Verified 09/23/20 19:18) Nausea Primary Care Physician: Chio Brown MD [Primary Care Provider] - Prior records reviewed: Yes Past Medical History: - - HTN and DM Surgical History: cholecystectomy Lives: Spouse/ Significant Other Smoking Status: Current every day smoker Alcohol: None Drugs: None - Family History Paternal Family History: Reports: Diabetes, Heart Disease Maternal Family History: Reports: Heart Disease Review of Systems General: Denies: Chills, Fever, Sweats Eyes: Denies: Visual changes - bilaterally, Diplopia ENT: Denies: Rhinorrhea, Sore throat Cardiovascular: Denies: Chest pain, Palpitations Respiratory: Denies: Dyspnea, Cough, Dyspnea on exertion Gastrointestinal: Reports: Abdominal pain. Denies: Nausea, Vomiting, Diarrhea, Melena, Hematochezia Genitourinary: Denies: Dysuria, Hematuria, Frequency Musculoskeletal: Denies: Back pain, Extremity Pain Skin: Denies: Rash, Wounds Neurological: Denies: Headache, Weakness, Numbness Physical Exam Vital Signs/Narrative: Vital Signs Temp Pulse Resp BP Pulse Ox 09/23/20 19:18 96.9 F L 85 18 171/120 H 96 Inital Vital Signs reviewed: Yes General: Well nourished, Well developed, No Acute Distress Head: Normocephalic, Atraumatic Eyes: Perrl, EOMI ENT: Moist mucous membranes, No rhinorrhea Neck: Supple, Nontender Cardiovascular: Regular rate, Regular rhythm, No murmurs Respiratory: No distress, CTA bilaterally, Chest nontender Abdomen: Soft, Nondistended, Normal bowel sounds, - - TTP in the upper epigatrum. No rebound or rigidity. Back: Nontender, Normal Inspection Extremities: Nontender, No edema Skin: Normal color, No rash Neurological: Alert, Oriented x3, Cranial nerves II-XII grossly intact, Normal Strength, Normal Sensation Psychological: Normal affect, Normal Mood Diagnostic/Tx/Re-eval Laboratory Data 09/23/20 09/23/20 09/23/20 18:50 19:40 19:40 WBC 6.0 RBC 5.17 Hgb 16.0 Hct 43.0 MCV 83.2 MCH 30.9 MCHC 37.2 H RDW Std Deviation 35.0 L RDW Coeff of Dina 11.6 Plt Count 196 MPV 11.1 Immature Gran % (Auto) 0.500 Neut % (Auto) 52.9 Lymph % (Auto) 34.2 [place] % (Auto) 9.2 Eos % (Auto) 2.5 Baso % (Auto) 0.7 Absolute Neuts (auto) 3.2 Absolute Lymphs (auto) 2.05 Nucleated RBC % 0 Sodium 126 L Potassium 4.1 Chloride 93 L Carbon Dioxide 28.0 Anion Gap 5 BUN 13 Creatinine 0.95 Estim Creat Clear Calc 126.90 Est GFR (MDRD) Af Amer 113 Est GFR (MDRD) Non-Af 93 BUN/Creatinine Ratio 13.7 Glucose 509 H* Calcium 7.7 L Total Bilirubin 0.60 AST 32 ALT 52 Alkaline Phosphatase 108 Total Protein 7.2 Albumin 3.4 Globulin 3.8 Albumin/Globulin Ratio 0.9 Lipase 118 Urine Color Yellow Urine Clarity Clear Urine pH 7.0 Ur Specific [place] 1.010 Urine Protein Negative Urine Glucose (UA) 1000 H Urine Ketones 5 H Urine Occult Blood Negative Urine Nitrite Negative Urine Bilirubin Negative Urine Urobilinogen Normal Ur Leukocyte Esterase Negative Urine RBC 0 SEEN Urine WBC 0 SEEN Ur Squamous Epith Cells 0-5 SEEN Urine Bacteria 0 SEEN Urine Mucus 0 SEEN - Medical Decision Making Patient appears well nontoxic. Patient given pain medication as well as GI cocktail. Lipase not significantly elevated. Patient has hyperglycemia without evidence of DKA. Patient was given 15 units of subcutaneous insulin and 2 L of fluid. Patient will be given Pepcid and Carafate for home. Patient be given gastroenterologic follow-up. I feel the patient likely has a ulcer. Advised on changing his eating habits. Advised on checking his sugar regularly. Asked return for new or worsening symptoms. Patient agreeable and stable at time of discharge. Impression: 1. Epigastric pain 2. Hyperglycemia ED Disposition - Plan for ED Patient: Disposition: Home or Assisted Living Instructions: Peptic Ulcer, ED Diabetic Hyperglycemia Prescriptions: Sucralfate [Carafate] 1 gm PO 4X/DAY #56 tab Prescription Printed Famotidine [Pepcid] 20 mg PO BID #28 tab Prescription Printed Referrals: Chio Brown MD [Primary Care Provider] - 2 Days
[2020-09-23 20:31] LABS: Color, Urine Yellow (Yellow); Glucose, Dipstick 1000 mg/dl (Normal); Ketone-Dipstick 5 mg/dl (Negative); Leukocyte Esterase-Dipstick Negative /ul (Negative); Nitrite-Dipstick Negative (Negative); Occult Blood-Urine Negative /ul (Negative); Protein-Dipstick Negative (Negative); Urine Bilirubin Dipstick Negative (Negative); Urine Clarity Clear (Clear); Urine Urobilinogen Normal (Normal)
[2020-09-23 20:42] LABS: Squamous Epithelial Cells - UA 0-5 SEEN /hpf (0-5)
[2020-09-23 20:49] LABS: ALB/GLOB Ratio 0.9 RATIO (0.9-2.4); AST(SGOT) 32 U/L (15-37); Alanine Aminotransfer ALT/SGPT 52 U/L (16-61); Albumin, Serum 3.4 g/dL (3.2-5.0); Alkaline Phosphatase 108 U/L (45-117); Anion Gap 5 (5-15); BUN 13 mg/dL (7-18); BUN/Creat Ratio 13.7 RATIO (10-20); Calcium,Total 7.7 mg/dL (8.5-10.1); Chloride 93 mmol/L (98-107); Creatinine, Serum 0.95 mg/dL (0.70-1.30); EST Glomerular Filtration Rate 93 mL/min (>60); Est Glom Filt Rate - Afr Amer 113 mL/min (>60); Globulin 3.8 g/dL (2.2-4.2); Lipase 118 U/L (73-393); Potassium 4.1 mmol/L (3.5-5.1); Protein, Total 7.2 g/dL (6.4-8.2); Sodium Level 126 mmol/L (136-145)
[2020-09-23 20:58] LABS: Glucose 509 mg/dL (74-106)
[2020-09-23] MEDS: 0.9% Normal Saline 1,000 ML 999 ML IV (21:36)
[2020-09-23] MEDS: HYDROmorphone 0.5 MG/0.5 ML SYRINGE IV (21:37)
[2020-09-23] MEDS: Mag Hydrox/Al Hydrox/Simeth 30 ML UDC PO (21:39)
[2020-09-23] MEDS: Insulin Lispro 100 UNIT/ML INSULN.PEN 15 UNIT SC (21:41)
[2020-09-23 22:12] VITALS: BP 169/81; PULSE 73; RESP 16; O2SAT 99
== END 2020-09-23 22:14 | disposition home or self-care (01) ==
PROVIDERS: Emergency Provider Emergency Medicine; PCP Internal Medicine
DX: R10.13 Epigastric pain (principal); E11.65 Type 2 diabetes mellitus with hyperglycemia; F17.200 Nicotine dependence, unspecified, uncomplicated; Z90.49 Acquired absence of other specified parts of digestive tract; Z79.4 Long term (current) use of insulin
CPT/HCPCS: 80053; 81001; 83690; 85025; 96374; 96375; 99283; J7030; A4216; J2405

== ENCOUNTER 2020-12-02 10:47 | Emergency (ER) | payer SELFPAY ==
[2020-12-02 10:48] VITALS: BP 172/107; PULSE 94; RESP 18; TEMP 36.6; O2SAT 98; BMI 34.0
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
--- NOTE | 2020-12-02 11:27 | RAD_ITS ---
STUDY: X-RAY - LUMBAR SPINE REASON FOR EXAM: Male, 40 years old. Trauma TECHNIQUE: 3 view(s) of the lumbar spine were obtained. COMPARISON: None FINDINGS: Normal lumbar lordosis. There is no substantial scoliosis. There is a normal alignment of the vertebrae. Anterior spondylosis and disc space narrowing at the L2-L3, L3-L4 and L4-L5 levels. Normal disc space heights. The soft tissue structures are unremarkable. RAD/Lumbar Spine 2 or 3 Views IMPRESSION: Degenerative changes of the spine, as detailed above. Electronically Signed: Wilfrid Walden MD at 12:08 EDT , Service support ,
--- NOTE | 2020-12-02 11:27 | RAD_ITS ---
STUDY: X-RAY CHEST REASON FOR EXAM: Male, 40 years old. Trauma TECHNIQUE: Single AP portable view of the chest. COMPARISON: Comparison is made with prior study done 05/23/2019. FINDINGS: The lungs are clear and expanded. There is no demonstrated pleural abnormality. Normal size heart. Normal mediastinum and matthew. Normal visualized pulmonary arteries. Normal visualized aortic arch and descending thoracic aorta. There are degenerative changes of the visualized thoracic spine. Normal visualized ribs, clavicles, and shoulders. There is no demonstrated abnormality of the visualized soft tissue structures of the upper abdomen. RAD/Chest 1 View IMPRESSION: Normal x-ray examination of the chest. Electronically Signed: Wilfrid Walden MD at 12:06 EDT , Service support ,
--- NOTE | 2020-12-02 11:27 | RAD_ITS ---
STUDY: X-RAY - RIGHT FOOT CLINICAL: Male, 40 years old. Injury TECHNIQUE: 3 view(s) of the foot. COMPARISON: None. FINDINGS: There is an enthesophyte involving the posterior superior calcaneus at the site of insertion of the Achilles tendon. Normal visualized subtalar, talonavicular, calcaneocuboid, tarsal and tarsometatarsal articulations. Normal metatarsi. There is degenerative arthrosis of the metatarsophalangeal joint of the hallux with a hallux valgus deformity. Normal tibial and fibular sesamoid bones. Normal interphalangeal joint of the great toe. Normal phalanges of the great toe. Normal second through fifth metatarsophalangeal joints. Normal interphalangeal joints and phalanges of the lesser toes. The soft tissue structures are unremarkable. RAD/Foot min 3 Views IMPRESSION: No acute abnormality is seen. Electronically Signed: Wilfrid Walden MD at 12:07 EDT , Service support ,
--- NOTE | 2020-12-02 11:27 | RAD_ITS ---
STUDY: X-RAY - RIGHT TIBIA AND FIBULA REASON FOR EXAM: Male, 40 years old. Injury TECHNIQUE: 2 view(s) of the tibia and fibula were obtained. COMPARISON: None. FINDINGS: Normal visualized tibia. Normal visualized fibula. The soft tissue structures are unremarkable. RAD/Tibia & Fibula 2 Views IMPRESSION: Normal x-ray examination of the tibia and fibula. Electronically Signed: Wilfrid Walden MD at 12:07 EDT , Service support ,
--- NOTE | 2020-12-02 11:27 | RAD_ITS ---
STUDY: X-RAY - CERVICAL SPINE REASON FOR EXAM: Male, 40 years old. Pain following a fall from a horse. TECHNIQUE: 3 view(s) of the cervical spine were obtained. COMPARISON: None FINDINGS: Normal anterior atlantoaxial articulation. Normal odontoid process. There is straightening of the normal cervical lordosis. There is multi-level endplate spondylosis. There is multi-level degenerative disc disease with multilevel disc space narrowing. Normal visualized intervertebral neuroforamina. The soft tissue structures are unremarkable. RAD/Cerv Spine 2 or 3 Views IMPRESSION: Disc space narrowing and spondylosis at the C4-C5, C5-6 and C6-C7 levels. Electronically Signed: Wilfrid Walden MD at 12:05 EDT , Service support ,
[2020-12-02] MEDS: Diphth,Pertuss(Acell),Tet Vac 0.5 ML Vial IM (12:59)
[2020-12-02 13:07] VITALS: BP 149/97; PULSE 79; RESP 16
== END 2020-12-02 13:13 | disposition home or self-care (01) ==
PROVIDERS: Emergency Provider Emergency Medicine; PCP Internal Medicine
DX: S09.90XA Unspecified injury of head, initial encounter (principal); S16.1XXA Strain of muscle, fascia and tendon at neck level, initial encounter; S39.012A Strain of muscle, fascia and tendon of lower back, initial encounter; S81.811A Laceration without foreign body, right lower leg, initial encounter; F17.210 Nicotine dependence, cigarettes, uncomplicated; V80.02XA Occupant of animal-drawn vehicle injured by fall from or being thrown from animal-drawn vehicle in noncollision accident, initial encounter
CPT/HCPCS: 71045; 72040; 72100; 73590; 73630; 90471; 90715; 99283

== ENCOUNTER 2021-09-20 16:24 | Emergency (ER) | payer MEDICAID, SELFPAY ==
[2021-09-20] VITALS (7 sets, daily range): BP systolic 158–163; BP diastolic 86–111; PULSE 87–100; RESP 14–15; TEMP 36.6; O2SAT 98–99; BMI 32.8
--- NOTE | 2021-09-20 17:06 | EKG12_ITS ---
Test Reason : MENTAL HEALTH Blood Pressure : / mmHG Vent. Rate : 093 BPM Atrial Rate : 093 BPM P-R Int : 168 ms QRS Dur : 088 ms QT Int : 328 ms P-R-T Axes : 031 009 002 degrees QTc Int : 407 ms Normal sinus rhythm Normal ECG Confirmed by TAMY RAMIREZ, RAND ([id number]), editor newspaper GEOVANNI HERNANDEZ ([id number]) on 09/22/2021 2:15:30 PM Referred By: MEETA Confirmed By:LILIANA MORELOS MD
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
[2021-09-20 17:30] LABS: Absolute Neutrophil Count 6.5 X10^3/uL (2.0-7.7); Basophil# 0.06 X10^3/uL; Basophil% 0.5 % (0-1); Eosinophil# 0.17 X10^3/uL; Eosinophils% 1.3 % (0-5); Hematocrit 46.6 % (40-54); Hemoglobin 17.1 g/dL (13.0-16.5); Lymphocyte % 37.1 % (19-41); Mean Corp Hgb Conc 36.7 g/dL (32-36); Mean Corpuscular Hgb 29.6 pg (27.0-32.0); Mean Corpuscular Volume 80.8 fL (80-94); Monocyte# 1.27 X10^3/uL; NRBC Flagged by Analyzer 0 % (0-5); Neutrophil # 6.46 X10^3/uL (2.7-7.7); Neutrophil % 50.9 % (47-70); Platelet Count 179 K/mm3 (150-450); RBC Distribution Width CV 11.9 % (11.6-14.6); RBC Distribution Width SD 34.5 fl (35.1-43.9); Red Blood Count 5.77 M/mm3 (4.6-6.2); White Blood Count 12.7 K/mm3 (4.4-11.0)
[2021-09-20 17:47] LABS: ALB/GLOB Ratio 1.3 RATIO (0.9-2.4); AST(SGOT) 19 U/L (15-37); Alanine Aminotransfer ALT/SGPT 42 U/L (16-61); Albumin, Serum 4.4 g/dL (3.2-5.0); Alkaline Phosphatase 85 U/L (45-117); Anion Gap 8 (5-15); BUN 21 mg/dL (7-18); BUN/Creat Ratio 21.8 RATIO (10-20); Chloride 103 mmol/L (98-107); Creatinine, Serum 0.96 mg/dL (0.70-1.30); EST Glomerular Filtration Rate 91 mL/min (>60); Est Glom Filt Rate - Afr Amer 110 mL/min (>60); Estimated Creatinine Clearance 124.32 ml/min; Globulin 3.5 g/dL (2.2-4.2); Glucose 365 mg/dL (74-106); Potassium 3.8 mmol/L (3.5-5.1); Protein, Total 7.9 g/dL (6.4-8.2); Sodium Level 133 mmol/L (136-145)
[2021-09-20 18:12] LABS: Alcohol, Blood (Medical)-Serum < 3.0 mg/dL; Valproic Acid (Depakene) Level < 3 ug/mL (50-100)
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
[2021-09-20 19:55] LABS: Amphetamine Urine VISTA NEGATIVE (<1000 ng/mL); Barbiturate Urine VISTA NEGATIVE (< 200 ng/mL); Benzodiazepine Urine VISTA NEGATIVE (< 200 ng/mL); Cocaine Urine VISTA POSITIVE (< 300 ng/mL); Ecstacy Urine VISTA NEGATIVE (< 500 ng/mL); Methadone Urine VISTA NEGATIVE (< 300 ng/mL); PCP Urine VISTA NEGATIVE (< 25 ng/mL); THC Urine VISTA NEGATIVE (< 50 ng/mL); Vista UDS pH Range 5
--- NOTE | 2021-09-20 20:01 | CM.ED ---
Social Work Telephone call to [facility] Latricia Franca. Franca reports to have an open bed. Clinical information faxed. Patient with straight Medicaid, limited in options for facilities that accept straight medicaid. PLAN: Inpatient psychiatric placement. Will continue to follow. Fouzia BURT, EZIOS
--- NOTE | 2021-09-20 20:10 | CM.ED ---
Social Work Telephone call to Aleyda fuentes. This director social welfare updated Aleyda on patient case as end of social work shift. Clinical information faxed in the event that further placement options needs to be pursued. Medical team updated. Fouzia BURT, TRICIA
[2021-09-20] MEDS: Ziprasidone HCl 20 MG Capsule PO (21:29)
--- NOTE | 2021-09-20 21:30 | ED.RN ---
Dr. Morris updated on BS. New order to give night dose of Lantus and metformin.
[2021-09-20 21:36] LABS: Bedside Glucose 485 mg/dL (74-106)
[2021-09-20] MEDS: Insulin Glargine-YFGN 100 UNIT/ML Pen 28 UNIT SC (22:39)
[2021-09-20] MEDS: Lisinopril 10 MG Tablet PO (22:41)
[2021-09-20] MEDS: Divalproex (ER) 500 MG Tablet 2000 MG PO (22:41)
[2021-09-20] MEDS: OLANZapine 10 MG Tablet PO (22:41)
[2021-09-20] MEDS: Atorvastatin Calcium 20 MG Tablet PO (22:41)
[2021-09-20] MEDS: metFORMIN (XR) 500 MG Tablet 1000 MG PO (22:42)
[2021-09-21] VITALS (12 sets, daily range): BP systolic 92–144; BP diastolic 65–86; PULSE 61–86; RESP 14–18; TEMP 36.6–36.7; O2SAT 92–98
[2021-09-21 02:36] LABS: Bedside Glucose 407 mg/dL (74-106)
[2021-09-21] MEDS: Insulin Lispro 100 UNIT/ML INSULN.PEN 15 UNIT SC (05:33)
[2021-09-21 06:41] LABS: Bedside Glucose 363 mg/dL (74-106)
--- NOTE | 2021-09-21 07:12 | ED.RN ---
ALEJANDRO FROM [facility] CALLS TO SAY IF PT IS NOT ACCEPTED AFTER RESULTS OF 0630 BLOOD RESULTS, TO CONTACT HER BACK AND THEY WILL WORK ON A DIFFERENT PLACEMENT
[2021-09-21 07:33] LABS: Anion Gap 8 (5-15); BUN 30 mg/dL (7-18); BUN/Creat Ratio 21.4 RATIO (10-20); Calcium,Total 9.5 mg/dL (8.5-10.1); Chloride 103 mmol/L (98-107); EST Glomerular Filtration Rate 59 mL/min (>60); Est Glom Filt Rate - Afr Amer 72 mL/min (>60); Estimated Creatinine Clearance 85.25 ml/min; Glucose 371 mg/dL (74-106); Potassium 4.2 mmol/L (3.5-5.1); Sodium Level 135 mmol/L (136-145)
--- NOTE | 2021-09-21 08:27 | ED.RN ---
[facility] CALLED FOR UPDATED VITALS
[2021-09-21] MEDS: Citalopram 40 MG TABLET PO (10:18)
[2021-09-21] MEDS: Lisinopril 10 MG Tablet PO (10:18)
[2021-09-21] MEDS: metFORMIN (XR) 500 MG Tablet 1000 MG PO ×2 (10:18→16:47)
--- NOTE | 2021-09-21 12:50 | CM.ED ---
Addendum entered by Rae Turner 09/21/21 13:29: [facility] Declined patient. Rae FREED Original Note: RYAN Note: RYAN was updated by Kari at Crisis. , [place], [facility] and [facility] have no beds. [facility] Declined patient[facility] RYAN called [facility] and made referral to [facility]. RYAN faxed referral to [facility] Plan: Inpatient psych Rae FREED
[2021-09-21 15:11] LABS: Bedside Glucose 456 mg/dL (74-106)
--- NOTE | 2021-09-21 15:23 | ED.RN ---
glucose checked and is 456. pt reports he had regular syrup, regular soda brought with meals. diet changed to carb controlled.
[2021-09-21] MEDS: Insulin Lispro 100 UNIT/ML INSULN.PEN 12 UNIT SC (15:34)
--- NOTE | 2021-09-21 16:49 | CM.ED ---
Addendum entered by Rae Turner 09/21/21 17:34: RYAN updated patient regarding the status of his referral process. Rae FREED Original Note: RYAN called Mary Lou at [facility] as Kari was gone for the day. RYAN left voice mail inquiring if there was an update regarding [facility]. RYAN called [facility] and made referral to MARIEL parsons. RYAN faxed referral to [facility] SW called [facility]. No beds SW called [facility]. No record of referral. RYAN spoke to Kylie who asked that the referral be faxed to [phone]. RYAN faxed referral to [facility]. RYAN called [facility] and left 2 messages regarding referral for inpatient psych. RYAN called [facility]. They can not take involuntary patients from [facility]. RYAN received call from Katie at [facility]. Patient was declined due to his accuity. RYAN called [facility]. Left message for screener requesting a call back. RYAN called . No beds. RYAN called [facility] and spoke to Emma. They have beds. RYAN faxed referral to [facility]. Plan: Inpatient psych Rae FREED
[2021-09-21 16:51] LABS: Bedside Glucose 324 mg/dL (74-106)
--- NOTE | 2021-09-21 18:12 | CM.ED ---
RYAN Note RYAN called [facility] Multiple times and went to [facility] Senior Financial Reporting Analyst x3 and [facility] 2 x. RYAN was not connected with [facility] (psych emergency services). RYAN called [facility] and spoke to [facility]. RYAN updated [facility] as to the status of referrals. Rae FREED
--- NOTE | 2021-09-21 18:58 | CM.ED ---
RYAN Note RYAN received call from Kelsy at [facility]. Kelsy asked about the distance and if patient has transportation home. RYAN spoke to patiandreina and he voiced agreement to this documentation writer calling his mom to figure out transport home. RYAN called Maria E, patient's mom. Maria E was advised that patient has pending placement at [facility]. Maria E said that she thought patient would go to [facility] or [facility]. RYAN explained [facility] does not have psych and that [facility] declined him and had no beds. Maria E said that she will get patient when he is ready for discharge. Maria E said that the patient will be coming back to her house as the marriage is over. RYAN called Kelsy at [facility] and left voice mail stating that patient's mother had agreed to pick patient up at discharge. RYAN received voice mail from Mary Lou. Mary Lou stated, in voice mail, that we have to show that patient has no other options and been declined for placement. Mary Lou said that if providers say they have no bed then we need to continue to call. Mary Lou said that if patient is declined tonight she will make a referral to [facility] tomorrow. Plan: Inpatient Psych Rae FREED
[2021-09-21] MEDS: Mag Hydrox/Al Hydrox/Simeth 30 ML UDC PO (19:19)
--- NOTE | 2021-09-21 20:03 | CM.ED ---
RYAN Note: SW received phone call from Cat at [facility]. She said that patient has been accepted by Dr. Adriano Morales. Patient is going to the [place] 9th floor. The unit phone number is [phone]. Cat said that the ED nurses will be called by the [facility] Nurses for report. Cat said that if there is an issue after report to call the unit but NOT before report is given to RN. RYAN advised that MD had signed a pink slip and advised that this loan underwriter faxed the pink slip to [facility].Cat said that patient was previously in [facility] as he was seen at [facility]. Cat said that she needs to enter patient into [facility] and then the nurses will call within 30 minutes. RYAN updated marine fisheries technician and RN. Corinne, community coordinator, called for transportation due to high demand for transport tonight. She report transport in 3 hours. RYAN called [facility] and left voice mail advising bed is not needed for patient. RYAN called [facility] and advised no bed is needed for patient. RYAN updated patient that he was accepted at [facility]. RYAN discussed that patient's mother said that the plan at discharge from [facility] is that his mother will take patient home and he will go back to his mother's house. RYAN advised patient to focus on himself and caring for himself and getting better, which is what he said when he presented to the ED. RYAN left voice mail message for Mary Lou advising that patient has been accepted at [facility]. RYAN also sent a non identifying text to Mary Lou stating patient had secured placement. RYAN spoke to patient's mother, Maria E. Maria E was advised patient was accepted at [facility]. Maria E was advised that visiting hours are limited as patient will be going to groups, individual therapy and meeting with MD. Maria E said that she understands patient will be working on himself and just contact him when he is ready for discharge. Ryan explained that the [facility] social contact worker may contact her regarding discharge planning. Maria E again voiced that she will pick patient up at discharge. All questions answered and no concerns voiced. RYAN spoke to patient. RYAN provided him with resource list from [employer] so the [facility] staff knows local providers for patient when he is discharged. SW advised patient to take advantage of the groups, counseling and treatment patient is receiving at [facility]. Patient verbalized understanding. Plan: [facility]- [facility] Rae FREED
--- NOTE | 2021-09-21 21:21 | ED.RN ---
Kari from [facility] called for report- given.
[2021-09-21] MEDS: Divalproex (ER) 500 MG Tablet 2000 MG PO (22:01)
[2021-09-21] MEDS: OLANZapine 10 MG Tablet PO (22:02)
[2021-09-21] MEDS: Atorvastatin Calcium 20 MG Tablet PO (22:02)
[2021-09-21] MEDS: Insulin Glargine-YFGN 100 UNIT/ML Pen 28 UNIT SC (22:03)
[2021-09-21 22:15] LABS: Bedside Glucose 319 mg/dL (74-106)
[2021-09-22] VITALS: RESP 14
[2021-09-22 01:00] VITALS: RESP 15
--- NOTE | 2021-09-22 01:38 | ED.RN ---
Donn from [facility] called and requesting to be called when pt leaves [phone]
[2021-09-22 02:00] VITALS: BP 125/71; PULSE 69; RESP 17; O2SAT 98
== END 2021-09-22 03:06 ==
PROVIDERS: Emergency Medicine; Emergency Provider Student in an Organized Health Care Education/Training Program; PCP Internal Medicine; Visit Provider Student in an Organized Health Care Education/Training Program
DX: R45.851 Suicidal ideations (principal); F14.10 Cocaine abuse, uncomplicated; F31.9 Bipolar disorder, unspecified; F60.3 Borderline personality disorder; E11.65 Type 2 diabetes mellitus with hyperglycemia; E78.5 Hyperlipidemia, unspecified; F17.210 Nicotine dependence, cigarettes, uncomplicated; I10 Essential (primary) hypertension; Z91.14 Patient's other noncompliance with medication regimen
CPT/HCPCS: 80048; 80053; 80164; 80307; 82077; 82962; 85025; 87811; 93005; 99285

== ENCOUNTER 2021-12-12 10:47 | Emergency (ER) | payer MEDICAID, SELFPAY ==
[2021-12-12 10:48] VITALS: BP 160/110; PULSE 111; RESP 18; TEMP 36.1; O2SAT 97; BMI 36.5
[2021-12-12 11:03] VITALS: BP 146/99; PULSE 100; RESP 17
--- NOTE | 2021-12-12 12:12 | EDS_ITS ---
HPI History of Present Illness Chief Complaint: General Illness Informant: patient Onset/Context/Timing Onset: Days (3) Context: Sudden Onset Timing: Continuous Quality: Twisting Location: Chest, and abdomen Worsened by: Eating, drinking Relieved by: Nothing Narrative Narrative: Patient presents with chest pain, nausea, vomiting, and diarrhea for the past 3 days. Patient states the pain is over his lower chest and upper abdomen. Patient describes it as a twisting sensation. Patient states it is worse whenever he tries to eat or drink anything. Patient states nothing seems to help with it. Patient admits to some subjective fevers and chills. Patient also admits to some watery diarrhea. Patient denies any hematemesis or coffee- ground emesis. Patient denies any melena or hematochezia. Patient states he has been having increased thirst. [facility] Medical History Degenerative disc disease Diabetes mellitus Hyperlipemia Hypertension Home Medications metformin 500 mg tablet,extended release 24 hr (Glucophage XR) 1,000 mg PO BID 03/11/18 [History Last Taken 05/19/18] lisinopril 10 mg tablet 20 mg PO DAILY hypertension 05/20/18 [History Last Taken 05/19/18] insulin glargine 100 unit/mL (3 mL) subcutaneous pen (Lantus Solostar U-100 Insulin) 50 units subcut BID 07/31/18 [History Last Taken Unknown] atorvastatin 20 mg tablet 20 mg PO DAILY 10/26/18 [History Last Taken Unknown] dulaglutide 0.75 mg/0.5 mL subcutaneous pen injector (Trulicity) 0.75 mg subcut WE 12/12/21 [History Last Taken Unknown] insulin lispro 100 unit/mL subcutaneous pen 12 unit subcut TID 12/12/21 [History Last Taken Unknown] insulin lispro 100 unit/mL subcutaneous pen subcut 12/12/21 [History Last Taken Unknown] lurasidone 40 mg tablet (Latuda) 40 tab PO DAILY 12/12/21 [History Last Taken Unknown] ondansetron 4 mg disintegrating tablet 4 mg PO Q8H PRN PRN Nausea #10 tabs 12/12/21 [Rx Last Taken Unknown] oxcarbazepine 300 mg tablet (Trileptal) 300 tab PO BID 12/12/21 [History Last Taken Unknown] sertraline 50 mg tablet 50 tab PO DAILY 12/12/21 [History Last Taken Unknown] Allergy/AdvReac Type Severity Reaction Status Date / Time hydrocodone bitartrate AdvReac Nausea Verified 12/12/21 10:47 [From Vicodin] Surgical History History of cholecystectomy Social History Smoking Status: Current every day smoker tobacco type: cigarettes ROS ROS ED Constitutional Constitutional ED: Reports chills, fever(s) and subjective Eyes Eyes: Denies blurry vision or change in vision ENT ENT ED: Denies rhinorrhea or sore throat Cardiovascular Cardiovascular: Reports chest pain; Denies palpitations Respiratory/Chest Respiratory/Chest: Reports dyspnea; Denies cough Gastrointestinal Gastrointestinal: Reports abdominal pain, diarrhea, nausea and vomiting Genitourinary Genitourinary ED: Denies dysuria or hematuria Musculoskeletal Musculoskeletal: Denies back pain or neck pain Integumentary Denies abscess or rash Neurologic Neurologic: Denies headache(s) or weakness Endocrine Endocrinology: Reports polydipsia Allergic/Immunologic Allergic/Immunologic ED: Denies mouth swelling or urticaria EXAM Physical Exam Const Vital Signs: 12/12/21 10:48 12/12/21 11:03 12/12/21 11:03 Temperature 97.0 F L Temperature Source Temporal Pulse Rate 111 H 100 Respiratory Rate 18 17 Respiratory Effort Normal Non-Labored Respiratory Pattern Normal Blood Pressure 160/110 H 146/99 H Blood Pressure Mean 126 114 Pulse Ox 97 Oxygen Delivery Method Room Air 12/12/21 13:00 Temperature Temperature Source Pulse Rate 90 Respiratory Rate 14 Respiratory Effort Respiratory Pattern Blood Pressure 155/89 H Blood Pressure Mean 111 Pulse Ox Oxygen Delivery Method Positive well nourished and well developed General Appearance ED: well developed HEENT Reports moist mucous membranes Neck supple and no JVD Resp normal respiratory effort and clear to auscultation bilaterally Cardio regular rate, regular rhythm and no murmurs GI normal to inspection, nondistended, normoactive bowel sounds Palpation: soft and tender epigastric, RLQ and RUQ; Negative for guarding or rebound tenderness present Extremity normal to inspection General Extremety ED: Negative for edema or tenderness General Extremity: Negative for edema Neuro oriented x3, CN's II-XII intact bilaterally and no sensory deficits noted Sensorium / Orientation: alert Motor Exam: strength 5/5 throughout Psych mental status grossly normal Skin no rashes or lesions noted MDM MDM MDM Narrative Medical decision making narrative: Patient was given IV fluids, morphine, and Zofran. CBC shows a mild leukocytosis of 11.4. Comprehensive metabolic profile was essentially within normal limits with the exception of an elevated glucose of 303. High- sensitivity troponin was less than 3. Patient is feeling better on reevaluation. Patient was advised of his findings. Patient was instructed to follow-up with his primary care physician in 5 to 7 days. Patient was given a prescription for Zofran. Patient was instructed to start with a bland diet and advance as tolerated. Patient understood and was agreeable with the plan. All questions were answered. Lab Data Attestation: I reviewed the patient's lab results. Labs: Laboratory Results - last 24 hr 12/12/21 12/12/21 11:50 11:50 WBC 11.4 H RBC 5.57 Hgb 17.0 H Hct 45.9 MCV 82.4 MCH 30.5 MCHC 37.0 H RDW Std Deviation 37.5 RDW Coeff of Dina 12.3 Plt Count 202 MPV 11.1 Immature Gran % (Auto) 0.300 Neut % (Auto) 58.7 Lymph % (Auto) 26.2 [place] % (Auto) 10.6 H Eos % (Auto) 3.8 Baso % (Auto) 0.4 Absolute Neuts (auto) 6.7 Absolute Lymphs (auto) 2.97 Nucleated RBC % 0 Sodium 134 L Potassium 3.4 L Chloride 102 Carbon Dioxide 20.0 L Anion Gap 12 BUN 30 H Creatinine 1.25 Estim Creat Clear Calc 95.48 Est GFR (MDRD) Af Amer 82 Est GFR (MDRD) Non-Af 68 BUN/Creatinine Ratio 24.0 H Glucose 303 H Calcium 8.8 Total Bilirubin 0.70 AST 21 ALT 52 Alkaline Phosphatase 87 Troponin I High Sens < 3 L Total Protein 7.7 Albumin 4.1 Globulin 3.6 Albumin/Globulin Ratio 1.1 Discharge Plan Triage Chief Complaint: General Illness ED Provider: Kennedy Aragon Dx/Rx/DC Orders Clinical Impression: Viral illness, Type II diabetes mellitus Instructions: ED Viral Syndrome (Adult) Prescriptions: New ondansetron [ondansetron] 4 mg tablet,disintegrating 4 mg PO Q8H PRN PRN (Reason: Nausea) Qty: 10 0RF No Action metformin [Glucophage XR] 500 MG tablet extended release 24 hr 1,000 mg PO BID lisinopril 10 MG tablet 20 mg PO DAILY insulin glargine [Lantus Solostar U-100 Insulin] 100 UNITS/ML insulin pen 50 units subcut BID atorvastatin 20 MG tablet 20 mg PO DAILY oxcarbazepine [Trileptal] 300 mg tablet 300 tab PO BID Label Comments: Take 1 tablet by mouth twice a day sertraline 50 mg tablet 50 tab PO DAILY Label Comments: Take 1 tablet by mouth once a day Latuda 40 mg tablet 40 tab PO DAILY Label Comments: Take 1 tablet by mouth once a day insulin lispro [Humalog Pen] 100 unit/mL Insulin Pen 12 unit SUBCUT TID insulin lispro [Humalog Pen] 100 unit/mL Insulin Pen SUBCUT Rx Instructions: SSI Trulicity 0.75 mg/0.5 mL Pen Injector 0.75 mg SUBCUT WE Primary Care Provider: Chio Brown Referrals: Chio Brown MD [Primary Care Provider] - 5-7 Days Disposition Disposition: Home, Self Care
--- NOTE | 2021-12-12 12:16 | EKG12_ITS ---
Test Reason : CP Blood Pressure : / mmHG Vent. Rate : 101 BPM Atrial Rate : 101 BPM P-R Int : 168 ms QRS Dur : 086 ms QT Int : 338 ms P-R-T Axes : 036 004 021 degrees QTc Int : 438 ms Sinus tachycardia Poor R wave progression Septal VT, age undetermined, cannot be excluded Confirmed by VANCE RAMIREZ, IAIN ([id number]), health editor GEOVANNI HERNANDEZ ([id number]) on 12/14/2021 10:20:22 AM Referred By: GOYO Confirmed By:IAIN WOODARD MD
[2021-12-12] MEDS: 0.9% Normal Saline 1,000 ML 1000 ML IV (12:26)
[2021-12-12] MEDS: Ondansetron 4 MG/2 ML Vial IV (12:28)
[2021-12-12] MEDS: Morphine 4 MG/ML Syringe IV (12:28)
[2021-12-12 12:33] LABS: Absolute Lymphocyte Count 2.97 X10^3/uL (0.83-4.51); Absolute Neutrophil Count 6.7 X10^3/uL (2.0-7.7); Basophil# 0.04 X10^3/uL; Basophil% 0.4 % (0-1); Eosinophil# 0.43 X10^3/uL; Eosinophils% 3.8 % (0-5); Hematocrit 45.9 % (40-54); Lymphocyte # 2.97 X10^3/ul (0.83-4.51); Lymphocyte % 26.2 % (19-41); Mean Corpuscular Hgb 30.5 pg (27.0-32.0); Mean Corpuscular Volume 82.4 fL (80-94); Mean Platelet Vol. 11.1 fl (6.2-12.0); Monocyte% 10.6 % (0-10); NRBC Flagged by Analyzer 0 % (0-5); Neutrophil # 6.68 X10^3/uL (2.7-7.7); Neutrophil % 58.7 % (47-70); Platelet Count 202 K/mm3 (150-450); RBC Distribution Width CV 12.3 % (11.6-14.6); RBC Distribution Width SD 37.5 fl (35.1-43.9); Red Blood Count 5.57 M/mm3 (4.6-6.2); White Blood Count 11.4 K/mm3 (4.4-11.0)
[2021-12-12 12:47] LABS: ALB/GLOB Ratio 1.1 RATIO (0.9-2.4); AST(SGOT) 21 U/L (15-37); Alanine Aminotransfer ALT/SGPT 52 U/L (16-61); Albumin, Serum 4.1 g/dL (3.2-5.0); Alkaline Phosphatase 87 U/L (45-117); Anion Gap 12 (5-15); BUN 30 mg/dL (7-18); Calcium,Total 8.8 mg/dL (8.5-10.1); Chloride 102 mmol/L (98-107); Creatinine, Serum 1.25 mg/dL (0.70-1.30); EST Glomerular Filtration Rate 68 mL/min (>60); Est Glom Filt Rate - Afr Amer 82 mL/min (>60); Estimated Creatinine Clearance 95.48 ml/min; Globulin 3.6 g/dL (2.2-4.2); Glucose 303 mg/dL (74-106); Potassium 3.4 mmol/L (3.5-5.1); Protein, Total 7.7 g/dL (6.4-8.2); Sodium Level 134 mmol/L (136-145); Troponin-I HS < 3 pg/mL (3.0-78.0)
[2021-12-12 13:00] VITALS: BP 155/89; PULSE 90; RESP 14
[2021-12-12 14:22] VITALS: BP 154/74; PULSE 78; RESP 16
== END 2021-12-12 14:23 | disposition home or self-care (01) ==
PROVIDERS: Emergency Provider Emergency Medicine; PCP Internal Medicine; Visit Provider Emergency Medicine
DX: B34.9 Viral infection, unspecified (principal); Z79.4 Long term (current) use of insulin; E11.9 Type 2 diabetes mellitus without complications; E78.5 Hyperlipidemia, unspecified; I10 Essential (primary) hypertension; F17.210 Nicotine dependence, cigarettes, uncomplicated; Z79.84 Long term (current) use of oral hypoglycemic drugs; Z79.899 Other long term (current) drug therapy
CPT/HCPCS: 80053; 84484; 85025; 93005; 96361; 96374; 96375; 99283; J7030; A4216; J2405

== ENCOUNTER 2022-11-13 08:40 | Emergency (ER) | payer MEDICAID, SELFPAY ==
[2022-11-13 08:41] VITALS: BP 165/125; PULSE 91; RESP 16; TEMP 35.8; O2SAT 100; BMI 33.3
--- NOTE | 2022-11-13 08:55 | EX.ED.DYSGE1 ---
HPI History of Present Illness Chief Complaint: Complaint Informant: patient Onset/Context/Timing Onset: Today Context: Sudden Onset Timing: Continuous Quality: Dark red blood Location: Urine Worsened by: Nothing Relieved by: Nothing Narrative Narrative: Patient presents with hematuria that began this morning. Patient states he he got up and urinated this morning and noticed it was red blood. Patient states it is dark red blood. Patient denies any pain. Patient denies any fevers or chills. Patient denies any dysuria. Patient states he has chronic low back pain from a herniated disc but denies any new pain. Patient admits to some chronic nausea but denies any vomiting. Patient denies any flank pain. Patient denies any history of kidney stones. [facility] Medical History Degenerative disc disease Diabetes mellitus Hyperlipemia Hypertension Home Medications metformin 500 mg tablet,extended release 24 hr (Glucophage XR) 1,000 mg PO BID 03/11/18 [History Last Taken 05/19/18] lisinopril 10 mg tablet 20 mg PO DAILY hypertension 05/20/18 [History Last Taken 05/19/18] insulin glargine 100 unit/mL (3 mL) subcutaneous pen (Lantus Solostar U-100 Insulin) 50 units subcut BID 07/31/18 [History Last Taken Unknown] atorvastatin 20 mg tablet 20 mg PO DAILY 10/26/18 [History Last Taken Unknown] dulaglutide 0.75 mg/0.5 mL subcutaneous pen injector (Trulicity) 0.75 mg subcut WE 12/12/21 [History Last Taken Unknown] insulin lispro 100 unit/mL subcutaneous pen 12 unit subcut TID 12/12/21 [History Last Taken Unknown] insulin lispro 100 unit/mL subcutaneous pen subcut 12/12/21 [History Last Taken Unknown] lurasidone 40 mg tablet (Latuda) 40 tab PO DAILY 12/12/21 [History Last Taken Unknown] ondansetron 4 mg disintegrating tablet 4 mg PO Q8H PRN PRN Nausea #10 tabs 12/12/21 [Rx Last Taken Unknown] oxcarbazepine 300 mg tablet (Trileptal) 300 tab PO BID 12/12/21 [History Last Taken Unknown] sertraline 50 mg tablet 50 tab PO DAILY 12/12/21 [History Last Taken Unknown] Allergy/AdvReac Type Severity Reaction Status Date / Time hydrocodone bitartrate AdvReac Nausea Verified 12/12/21 10:47 [From Vicodin] Surgical History History of cholecystectomy Social History Smoking Status: Current every day smoker tobacco type: cigarettes ROS ROS ED Constitutional Constitutional ED: Denies chills or fever(s) Eyes Eyes: Denies blurry vision or change in vision ENT ENT ED: Denies rhinorrhea or sore throat Cardiovascular Cardiovascular: Denies chest pain or palpitations Respiratory/Chest Respiratory/Chest: Denies cough or dyspnea Gastrointestinal Gastrointestinal: Reports nausea; Denies vomiting Genitourinary Genitourinary ED: Reports hematuria; Denies dysuria Musculoskeletal Musculoskeletal: Reports back pain; Denies neck pain Integumentary Denies abscess or rash Neurologic Neurologic: Reports headache(s); Denies weakness Allergic/Immunologic Allergic/Immunologic ED: Denies mouth swelling or urticaria EXAM Physical Exam Const Vital Signs: 11/13/22 08:41 Temperature 96.4 F L Temperature Source Temporal Pulse Rate 91 Respiratory Rate 16 Blood Pressure 165/125 H Blood Pressure Mean 138 Pulse Ox 100 Oxygen Delivery Method Room Air Positive well nourished and well developed General Appearance ED: well developed and NAD HEENT Reports moist mucous membranes Neck supple and no JVD Resp normal respiratory effort and clear to auscultation bilaterally Cardio regular rate, regular rhythm and no murmurs GI normal to inspection, nondistended, normoactive bowel sounds Palpation: soft and tender LLQ and RUQ; Negative for guarding or rebound tenderness present Back/Spine no CVA tenderness Extremity normal to inspection General Extremety ED: Negative for edema or tenderness General Extremity: Negative for edema Neuro oriented x3, CN's II-XII intact bilaterally and no sensory deficits noted Sensorium / Orientation: alert Motor Exam: strength 5/5 throughout Psych mental status grossly normal Skin no rashes or lesions noted MDM MDM MDM Narrative Medical decision making narrative: Differential diagnosis includes ureteral calculus, renal cancer, bladder cancer, hemorrhagic cystitis, and coagulopathy. Urinalysis will be obtained to assess for urinary tract infection and hematuria. CBC will be obtained to assess for leukocytosis and anemia. Basic metabolic profile will be obtained to assess for renal function and electrolyte abnormality. PT was INR and PTT will be obtained to assess for coagulopathy. CT scan of the abdomen and pelvis will be obtained to assess for mass and ureteral calculus. Lab Data Attestation: I reviewed the patient's lab results. Lab results narrative: CBC was reviewed. There is a mild leukocytosis of 14.5. The remainder is within normal limits. Basic metabolic profile was reviewed glucose was slightly elevated at 175. The remainder is within normal limits. PT with INR and PTT were reviewed and were within normal limits. Urinalysis was reviewed. Occult blood was 250 with greater than 100 red blood cells. Leukocyte esterase was 25 with 5-10 white blood cells. Urine protein was 500. The remainder was within normal limits. Labs: Laboratory Results - last 24 hr 11/13/22 11/13/22 11/13/22 09:14 09:15 09:15 WBC 14.5 H RBC 5.45 Hgb 16.4 Hct 46.7 MCV 85.7 MCH 30.1 MCHC 35.1 RDW Std Deviation 40.3 RDW Coeff of Dina 13.2 Plt Count 177 MPV 11.1 Immature Gran % (Auto) 0.300 Neut % (Auto) 49.7 Lymph % (Auto) 20.2 Garza % (Auto) 6.1 Eos % (Auto) 22.5 H Baso % (Auto) 1.2 H Absolute Neuts (auto) 7.2 Absolute Lymphs (auto) 2.93 Nucleated RBC % 0 Differential Comment COMMENT Diff Path Review May foll PT 13.0 INR 1.0 APTT 28.5 Sodium Potassium Chloride Carbon Dioxide Anion Gap BUN Creatinine Estim Creat Clear Calc Est GFR (MDRD) Af Amer Est GFR (MDRD) Non-Af BUN/Creatinine Ratio Glucose Calcium Urine Color Red Urine Clarity Turbid Urine pH 7.0 Ur Specific [place] 1.015 Urine Protein 500 H Urine Glucose (UA) Normal Urine Ketones Negative Urine Occult Blood 250 H Urine Nitrite Negative Urine Bilirubin Negative Urine Urobilinogen Normal Ur Leukocyte Esterase 25 H Urine RBC > 100 SEEN Urine WBC 5-10 SEEN Ur Squamous Epith Cells 0 SEEN Urine Bacteria 0 SEEN Urine Mucus 0 SEEN 11/13/22 09:15 WBC RBC Hgb Hct MCV MCH MCHC RDW Std Deviation RDW Coeff of Dina Plt Count MPV Immature Gran % (Auto) Neut % (Auto) Lymph % (Auto) Garza % (Auto) Eos % (Auto) Baso % (Auto) Absolute Neuts (auto) Absolute Lymphs (auto) Nucleated RBC % Differential Comment Diff Path Review PT INR APTT Sodium 140 Potassium 3.8 Chloride 108 H Carbon Dioxide 26.0 Anion Gap 6 BUN 10 Creatinine 0.88 Estim Creat Clear Calc 134.26 Est GFR (MDRD) Af Amer 122 Est GFR (MDRD) Non-Af 101 BUN/Creatinine Ratio 11.4 Glucose 175 H Calcium 9.1 Urine Color Urine Clarity Urine pH Ur Specific [place] Urine Protein Urine Glucose (UA) Urine Ketones Urine Occult Blood Urine Nitrite Urine Bilirubin Urine Urobilinogen Ur Leukocyte Esterase Urine RBC Urine WBC Ur Squamous Epith Cells Urine Bacteria Urine Mucus Radiography Diagnostic Testing: Clinical Impression(s) from Imaging Studies Abdomen/Pelvis CT 11/13/22 09:00 IMPRESSION: Mild right hydronephrosis and hydroureter with mild perinephric and periureteral inflammatory stranding. No obstructing stone is identified within the right ureter. Findings likely due to recently passed stone or nonradiopaque stone. No free intraperitoneal fluid, air, or suspicious adenopathy, normal appendix visualized Electronically Signed: Harsha Fofana MD at 10:00 EDT Reading Location ID and State: [facility] / [place] , Service support , CT scan of the abdomen pelvis was reviewed. There is no free air or free fluid. There is no evidence of bowel obstruction. There is mild right hydronephrosis and hydroureter with mild perinephric stranding and periureteral inflammatory stranding. There is no stone visualized. This could be from a recently passed stone or a non-radiopaque stone. This was interpreted by the radiologist and was also independently reviewed by myself. Treatment and Re-Evaluation :: Patient was given IV fluids. Patient was given a dose of Tylenol for his headache. Patient was advised of his findings. Patient was instructed to drink plenty of fluids. Patient was instructed to take Tylenol or ibuprofen as needed for pain. Patient was given a referral for urology for follow-up. Patient was instructed return if worse in any way. Patient understood and was agreeable with the plan. All questions were answered. Discharge Plan Triage Chief Complaint: Complaint ED Provider: Kennedy Aragon Dx/Rx/DC Orders Clinical Impression: Right ureteral calculus, Type II diabetes mellitus, Hematuria Instructions: ED Hematuria, ED Kidney Stone w/ Colic Prescriptions: No Action metformin [Glucophage XR] 500 MG tablet extended release 24 hr 1,000 mg PO BID lisinopril 10 MG tablet 20 mg PO DAILY insulin glargine [Lantus Solostar U-100 Insulin] 100 UNITS/ML insulin pen 50 units subcut BID atorvastatin 20 MG tablet 20 mg PO DAILY oxcarbazepine [Trileptal] 300 mg tablet 300 tab PO BID Label Comments: Take 1 tablet by mouth twice a day sertraline 50 mg tablet 50 tab PO DAILY Label Comments: Take 1 tablet by mouth once a day Latuda 40 mg tablet 40 tab PO DAILY Label Comments: Take 1 tablet by mouth once a day insulin lispro [Humalog Pen] 100 unit/mL Insulin Pen 12 unit SUBCUT TID insulin lispro [Humalog Pen] 100 unit/mL Insulin Pen SUBCUT Rx Instructions: SSI Trulicity 0.75 mg/0.5 mL Pen Injector 0.75 mg SUBCUT WE ondansetron [ondansetron] 4 mg tablet,disintegrating 4 mg PO Q8H PRN PRN (Reason: Nausea) Qty: 10 0RF Primary Care Provider: Chio Brown Referrals: Kevon Neff MD [Med Staff - Active Staff] - 3-5 Days Chio Brown MD [Primary Care Provider] - 3-5 Days Disposition Disposition: Home, Self Care
--- NOTE | 2022-11-13 09:00 | CT_ITS ---
STUDY: CT ABDOMEN AND PELVIS WITHOUT CONTRAST REASON FOR EXAM: Male, 42 years old. Hematuria this am RADIATION DOSAGE (If Supplied By Facility): CTDIvol = ( 19.68 ) mGy, DLP = ( 1121.14 ) mGycm TECHNIQUE: Transaxial images were obtained from the dome of the diaphragm to the symphysis pubis without oral contrast, and without intravenous contrast. Sagittal and coronal images were reconstructed. Individualized dose optimization techniques were used for this CT. COMPARISON: None. FINDINGS: The visualized lung bases are unremarkable. The visualized portions of the heart are within normal limits. Normal liver. There are surgical clips in the gallbladder fossa consistent with a prior cholecystectomy. Normal spleen. Normal pancreas. Normal bilateral adrenal glands. Left kidney free of obstructive uropathy or suspicious solid renal lesion, there is a subtle punctate nonobstructing stone in the midportion of the left kidney. The right kidney shows mild hydronephrosis and hydroureter with subtle perinephric and periureteral inflammatory stranding. There is no obstructing stone identified within the right ureter. Findings could be due to a nonradiopaque stone or more likely recent passage of a stone. Normal visualized stomach. Normal small intestine. Normal colon. The appendix is visualized and appears normal. Appendix seen on coronal recon image 73 Normal abdominal aorta. Normal inferior vena cava. Normal retroperitoneum. Normal urinary bladder. Normal abdominal wall. Normal osseous structures. CT/Abdomen/Pelvis without Cont IMPRESSION: Mild right hydronephrosis and hydroureter with mild perinephric and periureteral inflammatory stranding. No obstructing stone is identified within the right ureter. Findings likely due to recently passed stone or nonradiopaque stone. No free intraperitoneal fluid, air, or suspicious adenopathy, normal appendix visualized Electronically Signed: Harsha Fofana MD at 10:00 EDT ,
[2022-11-13] MEDS: 0.9% Normal Saline 1,000 ML 1000 ML IV (09:24)
[2022-11-13 09:25] LABS: Absolute Lymphocyte Count 2.93 X10^3/uL (0.83-4.51); Absolute Neutrophil Count 7.2 X10^3/uL (2.0-7.7); Basophil# 0.17 X10^3/uL; Basophil% 1.2 % (0-1); Differential Indicated SCAN CRITERIA MET; Eosinophil# 3.26 X10^3/uL; Eosinophils% 22.5 % (0-5); Hematocrit 46.7 % (40-54); Hemoglobin 16.4 g/dL (13.0-16.5); Lymphocyte # 2.93 X10^3/ul (0.83-4.51); Lymphocyte % 20.2 % (19-41); Mean Corp Hgb Conc 35.1 g/dL (32-36); Mean Corpuscular Hgb 30.1 pg (27.0-32.0); Mean Corpuscular Volume 85.7 fL (80-94); Mean Platelet Vol. 11.1 fl (6.2-12.0); Monocyte# 0.88 X10^3/uL; Monocyte% 6.1 % (0-10); NRBC Flagged by Analyzer 0 % (0-5); Neutrophil # 7.22 X10^3/uL (2.7-7.7); Neutrophil % 49.7 % (47-70); POSITIVE DIFFERENTIAL YES; Platelet Count 177 K/mm3 (150-450); RBC Distribution Width CV 13.2 % (11.6-14.6); RBC Distribution Width SD 40.3 fl (35.1-43.9); Red Blood Count 5.45 M/mm3 (4.6-6.2); White Blood Count 14.5 K/mm3 (4.4-11.0)
[2022-11-13 09:29] LABS: Bacteria 0 SEEN /hpf (None Seen); Mucous, Urine 0 SEEN /hpf (<or=2+); Squamous Epithelial Cells - UA 0 SEEN /hpf (0-5)
[2022-11-13 09:30] LABS: Color, Urine Red (Yellow); Glucose, Dipstick Normal (Normal); Ketone-Dipstick Negative (Negative); Leukocyte Esterase-Dipstick 25 /ul (Negative); Nitrite-Dipstick Negative (Negative); Occult Blood-Urine 250 /ul (Negative); Protein-Dipstick 500 mg/dl (Negative); Specific Gravity, Urine 1.015 (1.002-1.030); Urine Bilirubin Dipstick Negative (Negative); Urine Clarity Turbid (Clear); Urine Urobilinogen Normal (Normal)
[2022-11-13 09:37] LABS: Partial Thromboplast Time 28.5 Seconds (24.1-36.2)
[2022-11-13 09:43] LABS: Anion Gap 6 (5-15); BUN 10 mg/dL (7-18); BUN/Creat Ratio 11.4 RATIO (10-20); Calcium,Total 9.1 mg/dL (8.5-10.1); Chloride 108 mmol/L (98-107); Creatinine, Serum 0.88 mg/dL (0.70-1.30); EST Glomerular Filtration Rate 101 mL/min (>60); Est Glom Filt Rate - Afr Amer 122 mL/min (>60); Estimated Creatinine Clearance 134.26 ml/min; Glucose 175 mg/dL (74-106); Potassium 3.8 mmol/L (3.5-5.1); Sodium Level 140 mmol/L (136-145)
[2022-11-13 09:43] LABS: Red Blood Cells-Urine > 100 SEEN /hpf (0-5)
[2022-11-13 09:45] LABS: White Blood Cells 5-10 SEEN /hpf (0-5)
[2022-11-13] MEDS: Acetaminophen 500 MG Tablet 1000 MG PO (10:11)
[2022-11-13 10:33] VITALS: BP 126/74; PULSE 62; RESP 15; O2SAT 98
[2022-11-14 12:04] LABS: Pathologist Review Reviewed
== END 2022-11-13 10:34 | disposition home or self-care (01) ==
PROVIDERS: Emergency Provider Emergency Medicine; PCP Internal Medicine; Visit Provider Emergency Medicine
DX: N20.1 Calculus of ureter (principal); E11.9 Type 2 diabetes mellitus without complications; Z79.4 Long term (current) use of insulin; R31.9 Hematuria, unspecified; I10 Essential (primary) hypertension; E78.5 Hyperlipidemia, unspecified; F17.210 Nicotine dependence, cigarettes, uncomplicated; Z79.84 Long term (current) use of oral hypoglycemic drugs; Z79.85 Long-term (current) use of injectable non-insulin antidiabetic drugs; Z90.49 Acquired absence of other specified parts of digestive tract
CPT/HCPCS: 74176; 80048; 81001; 85025; 85610; 85730; 96360; 99284; J7030; A4216

== ENCOUNTER 2023-05-05 21:07 | Emergency (ER) | payer MEDICAID, SELFPAY ==
[2023-05-05 21:08] VITALS: BP 155/90; PULSE 92; RESP 16; TEMP 36.9; O2SAT 99; BMI 32.5
--- NOTE | 2023-05-05 21:52 | RAD_ITS ---
STUDY: X-RAY - PELVIS AND RIGHT HIP REASON FOR EXAM: Male, 42 years old. HIP TECHNIQUE: 4 views of the pelvis and hip. COMPARISON: None. FINDINGS: There is a non-specific bowel gas pattern. Normal visualized soft tissue structures. Normal bilateral iliac wings, sacroiliac joints and visualized sacrum. Normal bilateral superior and inferior pubic rami. Normal pubic symphysis. Normal bilateral ischial tuberosities. Normal visualized femoral head. There is mild osteoarthritic spur formation of the acetabular rim. Normal hip joint. RAD/HIP, UNI W/ Pelvis 2-3 Views IMPRESSION: Minimal degenerative disease involving the right hip otherwise normal x-ray examination of the pelvis and hip with no acute fracture or subluxation. Electronically Signed: Gill Murrell MD at 22:32 EST ,
--- NOTE | 2023-05-05 21:56 | RAD_ITS ---
STUDY: X-RAY - RIGHT FOOT CLINICAL: Male, 42 years old. INJURY TECHNIQUE: 3 view(s) of the foot. COMPARISON: None. FINDINGS: Normal talus, calcaneus, and tarsal bones. Normal visualized subtalar, talonavicular, calcaneocuboid, tarsal and tarsometatarsal articulations. Normal metatarsi. Normal metatarsophalangeal joint of the great toe. Normal tibial and fibular sesamoid bones. Normal interphalangeal joint of the great toe. Normal phalanges of the great toe. Normal second through fifth metatarsophalangeal joints. Normal interphalangeal joints and phalanges of the lesser toes. Possible mild soft tissue swelling along the lateral aspect of the foot at the fifth metatarsophalangeal joint versus projectional artifact. There is no demonstrated fracture. RAD/Foot min 3 Views IMPRESSION: No distinct fracture or subluxation. Electronically Signed: Gill Murrell MD at 22:23 EST ,
--- NOTE | 2023-05-05 22:00 | RAD_ITS ---
STUDY: X-RAY - LEFT FOOT CLINICAL: Male, 42 years old. INJURY TECHNIQUE: 3 view(s) of the foot. COMPARISON: None. FINDINGS: Normal talus, calcaneus, and tarsal bones. Normal visualized subtalar, talonavicular, calcaneocuboid, tarsal and tarsometatarsal articulations. Normal metatarsi. Normal metatarsophalangeal joint of the great toe. Normal tibial and fibular sesamoid bones. Normal interphalangeal joint of the great toe. Normal phalanges of the great toe. Normal second through fifth metatarsophalangeal joints. Normal interphalangeal joints. Cortical disruption concerning for fracture involving the tip of the distal phalanx of the second toe. Remainder of the Phalanges of the lesser toes are unremarkable. There is partial soft tissue swelling along the lateral aspect of the foot at the fifth metatarsophalangeal joint. Mild soft tissue swelling at the tip of the second toe. RAD/Foot min 3 Views IMPRESSION: Likely fracture involving the tip of the distal phalanx of the second toe with clinical correlation recommended. Electronically Signed: Gill Murrell MD at 22:22 EST ,
--- NOTE | 2023-05-05 22:00 | EDS_ITS ---
HPI History of Present Illness Chief Complaint: Lower Extremity Injury Informant: patient Narrative Narrative: Patient presents after being dragged by a cow. Patient was loading his truck. He states a cow dragged him down the ramp. They just got somewhat intertwined. He did not hit his head did not lose consciousness. He has right hip pain left foot pain and a little bit of right ankle pain. He has some abrasions but tetanus is up-to-date within the last couple years. [facility] Medical History Degenerative disc disease Diabetes mellitus Hyperlipemia Hypertension Home Medications metformin 500 mg tablet,extended release 24 hr (Glucophage XR) 1,000 mg PO BID 03/11/18 [History Last Taken 05/19/18] lisinopril 10 mg tablet 20 mg PO DAILY hypertension 05/20/18 [History Last Taken 05/19/18] insulin glargine 100 unit/mL (3 mL) subcutaneous pen (Lantus Solostar U-100 In sulin) 50 units subcut BID 07/31/18 [History Last Taken Unknown] atorvastatin 20 mg tablet 20 mg PO DAILY 10/26/18 [History Last Taken Unknown] dulaglutide 0.75 mg/0.5 mL subcutaneous pen injector (Trulicity) 0.75 mg subcut WE 12/12/21 [History Last Taken Unknown] insulin lispro 100 unit/mL subcutaneous pen 12 unit subcut TID 12/12/21 [History Last Taken Unknown] insulin lispro 100 unit/mL subcutaneous pen subcut 12/12/21 [History Last Taken Unknown] lurasidone 40 mg tablet (Latuda) 40 tab PO DAILY 12/12/21 [History Last Taken Unknown] ondansetron 4 mg disintegrating tablet 4 mg PO Q8H PRN PRN Nausea #10 tabs 12/12/21 [Rx Last Taken Unknown] oxcarbazepine 300 mg tablet (Trileptal) 300 tab PO BID 12/12/21 [History Last Taken Unknown] sertraline 50 mg tablet 50 tab PO DAILY 12/12/21 [History Last Taken Unknown] naproxen 500 mg tablet 500 mg PO BID PRN pain #20 tabs 05/06/23 [Rx Last Taken Unknown] Allergy/AdvReac Type Severity Reaction Status Date / Time hydrocodone bitartrate AdvReac Nausea Verified 05/05/23 21:10 [From Vicodin] Surgical History History of cholecystectomy Social History Smoking Status: Current every day smoker tobacco type: cigarettes ROS ROS ED Constitutional Constitutional ED: Denies chills or fever(s) Eyes Eyes: Denies change in vision ENT ENT ED: Denies rhinorrhea or sore throat Cardiovascular Cardiovascular: Denies chest pain or palpitations Respiratory/Chest Respiratory/Chest: Denies cough or dyspnea Gastrointestinal Gastrointestinal: Denies abdominal pain, nausea or vomiting Genitourinary Genitourinary ED: Denies hematuria Musculoskeletal Musculoskeletal: Reports arthralgias; Denies back pain or neck pain Integumentary Reports Abrasions Neurologic Neurologic: Denies paresthesias or weakness Endocrine Endocrinology: Denies polydipsia or polyuria Hematologic/Lymphatic Hematologic/Lymphatic: Denies easy bleeding or easy bruising Allergic/Immunologic Allergic/Immunologic ED: Denies urticaria EXAM Physical Exam Narrative Exam Narrative: CONSTITUTIONAL: Patient is nontoxic in appearance. The patient looks comfortable. Work of breathing looks normal. HEENT: No notable trauma. Mucous membranes moist. EYES: No conjunctival injection. No proptosis. NECK:No JVD. No tenderness or pain with range of motion. CARDIOVASCULAR: Regular rate. Regular rhythm. No notable murmur. No JVD. RESPIRATORY: No respiratory distress. Breathing is unlabored. No tenderness. GASTROINTESTINAL: Not distended. Bowel sounds are normal. No tenderness. GENITOURINARY: No CVA tenderness. MUSCULOSKELETAL: Patient does have some abrasions to his right hip and some tenderness laterally. He is able to bear weight but it is sore. He has some slight abrasions to his right nguyễn but no tenderness. He has some swelling and tenderness to the lateral malleolus of his right ankle. He has tenderness to the medial lateral malleolus and the lateral aspect of the forefoot on the left. He also has some abrasions on the lateral aspect of the left foot. No gross deformities though. NEUROLOGICAL: Patient is alert and appropriate. No focal deficit noted. SKIN: Abrasions as above. No lacerations. PSYCHIATRIC: Patient is calm. Mood is appropriate. Const Vital Signs: 05/05/23 21:08 Temperature 98.5 F Temperature Source Temporal Pulse Rate 92 Respiratory Rate 16 Blood Pressure 155/90 H Blood Pressure Mean 111 Pulse Ox 99 Oxygen Delivery Method Room Air MDM MDM MDM Narrative Medical decision making narrative: My independent interpretation of the below films is as follows. Left ankle shows small nondisplaced fibular fracture. Final reading is same. Right ankle shows a small lateral almost avulsion type fracture from the fibula. This can likely be treated as a sprain. Final reading of the x-ray was similar. Left foot x-ray shows a tuft fracture of the left second toe. There is ecchymosis and tenderness there and I think this is clinically relevant. Final reading is similar. Right hip x-rays show no acute fracture and final reading is similar. The right ankle will be placed in a stirrup splint as this is really a small avulsion type fracture. Left will be placed in a boot orthosis. He should have follow-up and repeat imaging. Patient has had problems with narcotics causing nausea but also causing what he describes as count of anger feelings that make him not feel safe being in the house. I would like to avoid this. We will try Tylenol [id number] and I will write for Naprosyn trying to avoid some potential serious complications. Radiography Diagnostic Testing: Clinical Impression(s) from Imaging Studies Hip/Pelvis X-Ray 05/05/23 21:52 IMPRESSION: Minimal degenerative disease involving the right hip otherwise normal x-ray examination of the pelvis and hip with no acute fracture or subluxation. Electronically Signed: Gill Murrell MD at 22:32 EST Reading Location ID and State: [email or web address] [facility] [employer] , Service support , Foot X-Ray 05/05/23 21:56 IMPRESSION: No distinct fracture or subluxation. Electronically Signed: Gill Murrell MD at 22:23 EST , Foot X-Ray 05/05/23 22:00 IMPRESSION: Likely fracture involving the tip of the distal phalanx of the second toe with clinical correlation recommended. Electronically Signed: Gill Murrell MD at 22:22 EST Reading Location ID and State: [id number] / [employer] , Service support , Ankle X-Ray 05/05/23 22:13 IMPRESSION: Lateral malleolar fracture with no significant displacement. Electronically Signed: Gill Murrell MD at 22:55 EST Reading Location ID and State: [email or web address] [facility] [employer] , Service support , Ankle X-Ray 05/05/23 22:33 IMPRESSION: Likely hairline fracture through the lateral malleolus/distal fibula as described. Normal alignment. Electronically Signed: Gill Murrell MD at 23:02 EST Reading Location ID and State: [email or web address] [facility] [employer] , Service support , Discharge Plan Triage Chief Complaint: Lower Extremity Injury ED Provider: Mike Piña Dx/Rx/DC Orders Clinical Impression: Closed fracture of phalanx of left second toe, Abrasion, multiple sites, Accident on farm, Ankle fracture, left, Ankle fracture, right Instructions: ED Ankle Fracture, Distal Fibula Prescriptions: New naproxen 500 mg tablet 500 mg PO BID PRN (Reason: pain) Qty: 20 0RF No Action metformin [Glucophage XR] 500 MG tablet extended release 24 hr 1,000 mg PO BID lisinopril 10 MG tablet 20 mg PO DAILY insulin glargine [Lantus Solostar U-100 Insulin] 100 UNITS/ML insulin pen 50 units subcut BID atorvastatin 20 MG tablet 20 mg PO DAILY oxcarbazepine [Trileptal] 300 mg tablet 300 tab PO BID Patient Comments: Take 1 tablet by mouth twice a day sertraline 50 mg tablet 50 tab PO DAILY Patient Comments: Take 1 tablet by mouth once a day Latuda 40 mg tablet 40 tab PO DAILY Patient Comments: Take 1 tablet by mouth once a day insulin lispro [Humalog Pen] 100 unit/mL Insulin Pen 12 unit SUBCUT TID insulin lispro [Humalog Pen] 100 unit/mL Insulin Pen SUBCUT Rx Instructions: SSI Trulicity 0.75 mg/0.5 mL Pen Injector 0.75 mg SUBCUT WE ondansetron [ondansetron] 4 mg tablet,disintegrating 4 mg PO Q8H PRN PRN (Reason: Nausea) Qty: 10 0RF Primary Care Provider: Chio Brown Referrals: Chio Brown MD [Primary Care Provider] - Kemal Pratt DO [[facility] Staff - Active Staff] - 5-7 Days Disposition Disposition: Home, Self Care
[2023-05-05] MEDS: Naproxen 500 MG Tablet PO (22:12)
--- NOTE | 2023-05-05 22:13 | RAD_ITS ---
STUDY: X-RAY - RIGHT ANKLE REASON FOR EXAM: Male, 42 years old. INJURY TECHNIQUE: 3 view(s) of the ankle. COMPARISON: None. FINDINGS: There is a subtle fracture involving the lateral aspect of the lateral malleolus with no significant displacement. Well-corticated bony fragment at the tip of the medial malleolus, likely sequela of old avulsion injury. Otherwise normal medial malleolus. Remainder of the tibia and fibula are unremarkable. Normal tibiotalar articulation and ankle mortise. Normal visualized talus and calcaneus. The visualized subtalar, talonavicular, calcaneocuboid and tarsal articulations are normal. Soft tissue swelling at the ankle. RAD/Ankle min 3 Views IMPRESSION: Lateral malleolar fracture with no significant displacement. Electronically Signed: Gill Murrell MD at 22:55 EST ,
--- NOTE | 2023-05-05 22:33 | RAD_ITS ---
STUDY: X-RAY - LEFT ANKLE REASON FOR EXAM: Male, 42 years old. trauma TECHNIQUE: 3 view(s) of the ankle. COMPARISON: None. FINDINGS: Hairline lucency through the distal fibula concerning for hairline fracture. Normal medial malleolus. Normal tibiotalar articulation and ankle mortise. Normal visualized talus and calcaneus. The visualized subtalar, talonavicular, calcaneocuboid and tarsal articulations are normal. Mild soft tissue swelling more so along the lateral malleolus. RAD/Ankle min 3 Views IMPRESSION: Likely hairline fracture through the lateral malleolus/distal fibula as described. Normal alignment. Electronically Signed: Gill Murrell MD at 23:02 EST ,
== END 2023-05-06 01:05 | disposition home or self-care (01) ==
PROVIDERS: Emergency Provider Emergency Medicine; PCP Internal Medicine; Visit Provider Emergency Medicine
DX: S92.532A Displaced fracture of distal phalanx of left lesser toe(s), initial encounter for closed fracture (principal); E11.9 Type 2 diabetes mellitus without complications; S82.892A Other fracture of left lower leg, initial encounter for closed fracture; S82.891A Other fracture of right lower leg, initial encounter for closed fracture; F17.210 Nicotine dependence, cigarettes, uncomplicated; X58.XXXA Exposure to other specified factors, initial encounter
CPT/HCPCS: 73502; 73610; 73630; 99284

== ENCOUNTER 2023-11-28 14:01 | Emergency (ER) | payer MEDICAID, SELFPAY ==
[2023-11-28 14:01] VITALS: BP 134/93; PULSE 86; RESP 14; TEMP 36.8; O2SAT 96; BMI 33.5
--- NOTE | 2023-11-28 15:27 | CT_ITS ---
EXAM: CT CHEST, ABDOMEN AND PELVIS WITH INTRAVENOUS CONTRAST CLINICAL INDICATION: chest and abdominal pain TECHNIQUE: Helically acquired images were obtained of the chest, abdomen and pelvis with intravenous contrast. This CT exam was performed using one or more of the following dose reduction techniques: automated exposure control, adjustment of the mA and/or kV according to patient size, and/or use of iterative reconstruction technique. CONTRAST: IV 100mL [id number]-300 COMPARISON: CT abdomen dated 11/13/2022 FINDINGS: CHEST: LUNGS AND PLEURAL SPACES: Unremarkable. No mass. No consolidation or edema. No pleural effusion or thickening. No pneumothorax. HEART: Unremarkable. Heart size is normal. No pericardial effusion. MEDIASTINUM: Unremarkable. No mediastinal or hilar adenopathy. Esophagus is unremarkable. No hiatal hernia. THYROID: Unremarkable. No thyroid lesions. ABDOMEN: LIVER: Unremarkable. Homogeneous. No focal mass. GALLBLADDER AND BILE DUCTS: Patient status post cholecystectomy. No intra- or extrahepatic biliary ductal dilation. PANCREAS: Unremarkable. No focal cystic or solid mass. SPLEEN: Unremarkable. Normal size without focal cystic or solid mass. ADRENALS: Unremarkable. No nodules. KIDNEYS AND URETERS: Unremarkable. Normal renal size and position. No hydronephrosis. STOMACH AND BOWEL: Unremarkable. No stomach or bowel distention. No focal inflammatory change. PELVIS: APPENDIX: No evidence of acute appendicitis. BLADDER: Unremarkable. REPRODUCTIVE: Unremarkable as visualized. No mass. CHEST, ABDOMEN and PELVIS: INTRAPERITONEAL SPACE: Unremarkable. No ascites or other fluid collection. No free air. BONES/JOINTS: Unremarkable. No suspicious lytic or blastic abnormality. SOFT TISSUES: Unremarkable. No discrete abdominal or pelvic wall hernia. VASCULATURE: Unremarkable. Aorta is non-dilated. No aortic dissection. No obvious central pulmonary embolism although this study was not performed with the pulmonary embolism protocol. LYMPH NODES: Unremarkable. No enlarged lymph nodes. CT/CT Chest, Abd, Pel w/Contrast IMPRESSION: No acute findings in the chest, abdomen or pelvis. Electronically Signed: Rufino Tovar MD at 17:09 EDT ,
[2023-11-28] MEDS: 0.9% Normal Saline (1000mL) 1,000 ML 999 ML IV (15:39)
[2023-11-28] MEDS: Ondansetron 4 MG/2 ML Vial IV (15:41)
[2023-11-28] MEDS: Morphine 4 MG/ML Syringe IV (15:41)
[2023-11-28 15:53] LABS: Bacteria 0 SEEN /hpf (None Seen); Mucous, Urine 0 SEEN /hpf (<or=2+); Red Blood Cells-Urine 0 SEEN /hpf (0-5); Squamous Epithelial Cells - UA 0 SEEN /hpf (0-5); White Blood Cells 0 SEEN /hpf (0-5)
[2023-11-28 16:01] LABS: Color, Urine Yellow (Yellow); Glucose, Dipstick 1000 mg/dl (Normal); Ketone-Dipstick Negative (Negative); Leukocyte Esterase-Dipstick Negative /ul (Negative); Nitrite-Dipstick Negative (Negative); Occult Blood-Urine Negative /ul (Negative); Protein-Dipstick Negative (Negative); Specific Gravity, Urine 1.015 (1.002-1.030); Urine Bilirubin Dipstick Negative (Negative); Urine Clarity Clear (Clear); Urine Urobilinogen Normal (Normal)
[2023-11-28 16:12] LABS: Absolute Neutrophil Count 5.1 X10^3/uL (2.0-7.7); Basophil# 0.06 X10^3/uL; Basophil% 0.7 % (0-1); Eosinophil# 0.17 X10^3/uL; Eosinophils% 1.9 % (0-5); Hematocrit 46.5 % (40-54); Hemoglobin 16.6 g/dL (13.0-16.5); Lymphocyte % 32.1 % (19-41); Mean Corp Hgb Conc 35.7 g/dL (32-36); Mean Corpuscular Volume 83.9 fL (80-94); Mean Platelet Vol. 11.4 fl (6.2-12.0); Monocyte# 0.74 X10^3/uL; Monocyte% 8.2 % (0-10); NRBC Flagged by Analyzer 0 % (0-5); Neutrophil # 5.14 X10^3/uL (2.7-7.7); Neutrophil % 56.8 % (47-70); Platelet Count 152 K/mm3 (150-450); RBC Distribution Width CV 12.5 % (11.6-14.6); RBC Distribution Width SD 38.1 fl (35.1-43.9); Red Blood Count 5.54 M/mm3 (4.6-6.2)
[2023-11-28 16:24] LABS: AST(SGOT) 18 U/L (15-37); Alanine Aminotransfer ALT/SGPT 33 U/L (16-61); Albumin, Serum 4.1 g/dL (3.2-5.0); Alkaline Phosphatase 93 U/L (45-117); Anion Gap 6 (5-15); BUN 16 mg/dL (7-18); BUN/Creat Ratio 15.2 RATIO (10-20); Bilirubin, Direct 0.12 mg/dL (0.00-0.30); Calcium,Total 9.5 mg/dL (8.5-10.1); Chloride 106 mmol/L (98-107); Creatinine, Serum 1.05 mg/dL (0.70-1.30); EST Glomerular Filtration Rate 82 mL/min (>60); Est Glom Filt Rate - Afr Amer 99 mL/min (>60); Estimated Creatinine Clearance 131.08 ml/min; Globulin 3.5 g/dL (2.2-4.2); Glucose 164 mg/dL (74-106); Lipase 49 U/L (13-75); Potassium 4.1 mmol/L (3.5-5.1); Protein, Total 7.6 g/dL (6.4-8.2); Sodium Level 137 mmol/L (136-145)
--- NOTE | 2023-11-28 16:35 | ED.VIS.BACK ---
HPI History of Present Illness Chief Complaint: Back Narrative Narrative: 43-year-old male presenting with back pain. He states it is in the right upper back radiates around under his right ribs. He also has pain radiating down into his lower back into his gluteal region and down into his posterior thigh. Patient has a history of chronic back pain. No loss of bladder or bowel control. No saddle paresthesias. Denies any direct trauma. [facility] Medical History Degenerative disc disease Diabetes mellitus Hyperlipemia Hypertension Home Medications ?Medication ?Instructions ?Recorded ?Last Taken ?Type metformin 500 mg tablet,extended 1,000 mg PO BID 03/11/18 05/19/18 History release 24 hr (Glucophage XR) lisinopril 10 mg tablet 20 mg PO DAILY hypertension 05/20/18 05/19/18 History insulin glargine 100 unit/mL (3 50 units subcut BID 07/31/18 Unknown History mL) subcutaneous pen (Lantus Solostar U-100 Insulin) atorvastatin 20 mg tablet 20 mg PO DAILY 10/26/18 Unknown History dulaglutide 0.75 mg/0.5 mL 0.75 mg subcut WE 12/12/21 Unknown History subcutaneous pen injector (Trulicity) insulin lispro 100 unit/mL 12 unit subcut TID 12/12/21 Unknown History subcutaneous pen insulin lispro 100 unit/mL subcut 12/12/21 Unknown History subcutaneous pen lurasidone 40 mg tablet (Latuda) 40 tab PO DAILY 12/12/21 Unknown History ondansetron 4 mg disintegrating 4 mg PO Q8H PRN PRN Nausea #10 tabs 12/12/21 Unknown Rx tablet oxcarbazepine 300 mg tablet 300 tab PO BID 12/12/21 Unknown History (Trileptal) sertraline 50 mg tablet 50 tab PO DAILY 12/12/21 Unknown History naproxen 500 mg tablet 500 mg PO BID PRN pain #20 tabs 05/06/23 Unknown Rx naproxen 500 mg tablet (Naprosyn) 500 mg PO BID PRN pain #20 tabs 11/28/23 Unknown Rx Allergy/AdvReac Type Severity Reaction Status Date / Time hydrocodone bitartrate (From AdvReac Nausea Verified 11/12/23 21:10 Vicodin) Surgical History History of cholecystectomy Social History Smoking Status: Current every day smoker tobacco type: cigarettes ROS ROS ED Constitutional Constitutional ED: Denies chills, fever(s) or sweats Eyes Eyes: Denies blurry vision or change in vision ENT ENT ED: Denies ear pain or sore throat Cardiovascular Cardiovascular: Denies chest pain, palpitations or racing heartbeat Respiratory/Chest Respiratory/Chest: Reports other Details: Right rib pain ; Denies cough or sputum Gastrointestinal Gastrointestinal: Reports abdominal pain; Denies constipation, diarrhea, nausea or vomiting Genitourinary Genitourinary ED: Denies dysuria, hematuria or urinary frequency Musculoskeletal Musculoskeletal: Reports back pain; Denies arthralgias, myalgias or neck pain Integumentary Denies abscess, Abrasions or rash Neurologic Neurologic: Denies headache(s), paresthesias or weakness Psychiatric Psychiatric: Denies anxiety, depression, suicidal ideation or suicidal thoughts Endocrine Endocrinology: Denies polydipsia or polyuria EXAM Physical Exam Const Vital Signs: 11/28/23 14:01 11/28/23 18:01 11/28/23 18:36 Temperature 98.2 F 97.2 F L Temperature Source Temporal Pulse Rate 86 80 82 Respiratory Rate 14 16 16 Blood Pressure 134/93 H 130/90 H 128/65 H Blood Pressure Mean 106 103 86 Pulse Ox 96 99 97 Oxygen Delivery Method Room Air Room Air Positive well nourished HEENT Reports moist mucous membranes Eyes PERRL and EOMs intact bilaterally Chest Wall Chest Narrative: Tenderness to palpation of the right lateral ribs and right anterior ribs into the right upper quadrant. No midline spinal tenderness, deformity, step-off or thoracic spine. Resp normal respiratory effort and clear to auscultation bilaterally Auscultation: Negative for rales or rhonchi Cardio regular rate and regular rhythm GI GI Narrative: Patient very tender in the right upper quadrant. Palpation: Negative for hepatomegaly or splenomegaly Extremity normal to inspection Neuro oriented x3 Sensorium / Orientation: alert Psych mental status grossly normal Skin no rashes or lesions noted and no wounds MDM MDM MDM Narrative Medical decision making narrative: Patient presenting with back pain. He states it is in the mid back wraps around under his ribs all the way around on the right. The pain also goes down his back and into his gluteal region and down the back of his leg. No symptoms of cauda equina. Patient denies fever, cough, shortness of breath. He does have a lot of tenderness in the right upper quadrant although he reports to me his gallbladder has been removed. Patient presenting with right upper back pain into the ribs as well as lower back pain. Patient medicated with morphine, Zofran for differential includes colitis, diverticulitis, gastritis, pancreatitis, constipation, appendicitis, UTI, pyelonephritis, calculi, ureteral calculi, obstruction, malignancy, dehydration, electrolyte abnormalities, pneumonia, compression fracture, thoracic strain, lumbar strain. CBC will be obtained to assess white blood cell count, hemoglobin, platelets. CMP to assess renal function, electrolytes, liver function, glucose. Lipase to assess for pancreatitis. Urinalysis to assess for UTI. CBC shows normal white blood cell count at 9.0. Hemoglobin 16.6. Platelets are normal at 152. Patient electrolytes within normal limits. LFTs are normal. Urinalysis negative for infection or occult blood. Will obtain CT of the chest abdomen pelvis given the patient's extensive pain. CT of the chest abdomen pelvis is negative for any acute findings. Patient still had some pain so I did give him Toradol. We went over his workup. He states he does not tolerate hydrocodone well at home and in addition to this he has gastroparesis so we tried to stay away from narcotic pain medicine I recommended NSAIDs. He currently takes muscle relaxers at home. He did state at this point that he was referred to a back specialist who wanted to do surgery but he was delaying this. I recommend he follow-up with him. Impression: 1. Thoracic strain 2. Lumbar strain 3. Abdominal pain Lab Data Attestation: I reviewed the patient's lab results. Labs: Laboratory Results - last 24 hr 11/28/23 11/28/23 15:40 15:45 WBC 9.0 RBC 5.54 Hgb 16.6 H Hct 46.5 MCV 83.9 MCH 30.0 MCHC 35.7 RDW Std Deviation 38.1 RDW Coeff of Dina 12.5 Plt Count 152 MPV 11.4 Immature Gran % (Auto) 0.300 Neut % (Auto) 56.8 Lymph % (Auto) 32.1 Wetzel % (Auto) 8.2 Eos % (Auto) 1.9 Baso % (Auto) 0.7 Absolute Neuts (auto) 5.1 Absolute Lymphs (auto) 2.90 Nucleated RBC % 0 Sodium 137 Potassium 4.1 Chloride 106 Carbon Dioxide 25.0 Anion Gap 6 BUN 16 Creatinine 1.05 Estim Creat Clear Calc 131.08 Est GFR (MDRD) Af Amer 99 Est GFR (MDRD) Non-Af 82 BUN/Creatinine Ratio 15.2 Glucose 164 H Calcium 9.5 Total Bilirubin 0.40 Direct Bilirubin 0.12 AST 18 ALT 33 Alkaline Phosphatase 93 Total Protein 7.6 Albumin 4.1 Globulin 3.5 Lipase 49 Urine Color Yellow Urine Clarity Clear Urine pH 6.0 Ur Specific Gower 1.015 Urine Protein Negative Urine Glucose (UA) 1000 H Urine Ketones Negative Urine Occult Blood Negative Urine Nitrite Negative Urine Bilirubin Negative Urine Urobilinogen Normal Ur Leukocyte Esterase Negative Urine RBC 0 SEEN Urine WBC 0 SEEN Ur Squamous Epith Cells 0 SEEN Urine Bacteria 0 SEEN Urine Mucus 0 SEEN Radiography Diagnostic Testing: Clinical Impression(s) from Imaging Studies Chest/Abdomen/Pelvis CT 11/28/23 15:27 IMPRESSION: No acute findings in the chest, abdomen or pelvis. Electronically Signed: Rufino Tovar MD at 17:09 EDT , Discharge Plan Triage Chief Complaint: Back ED Provider: David Morris Dx/Rx/DC Orders Instructions: ED Back Pain (Acute or Chronic) Prescriptions: New naproxen [Naprosyn] 500 mg tablet 500 mg PO BID PRN (Reason: pain) Qty: 20 0RF No Action metformin [Glucophage XR] 500 MG tablet extended release 24 hr 1,000 mg PO BID lisinopril 10 MG tablet 20 mg PO DAILY insulin glargine [Lantus Solostar U-100 Insulin] 100 UNITS/ML insulin pen 50 units subcut BID atorvastatin 20 MG tablet 20 mg PO DAILY oxcarbazepine [Trileptal] 300 mg tablet 300 tab PO BID Patient Comments: Take 1 tablet by mouth twice a day sertraline 50 mg tablet 50 tab PO DAILY Patient Comments: Take 1 tablet by mouth once a day Latuda 40 mg tablet 40 tab PO DAILY Patient Comments: Take 1 tablet by mouth once a day insulin lispro [Humalog Pen] 100 unit/mL Insulin Pen 12 unit SUBCUT TID insulin lispro [Humalog Pen] 100 unit/mL Insulin Pen SUBCUT Rx Instructions: SSI Trulicity 0.75 mg/0.5 mL Pen Injector 0.75 mg SUBCUT WE ondansetron [ondansetron] 4 mg tablet,disintegrating 4 mg PO Q8H PRN PRN (Reason: Nausea) Qty: 10 0RF naproxen 500 mg tablet 500 mg PO BID PRN (Reason: pain) Qty: 20 0RF Primary Care Provider: Chio Brown Referrals: Chio Brown MD [Primary Care Provider] - Print Language: [place] Disposition Disposition: Home, Self Care Discharge Date/Time: 11/28/23 18:42
[2023-11-28] MEDS: Ketorolac 15 MG/ML Vial IV (17:56)
[2023-11-28 18:01] VITALS: BP 130/90; PULSE 80; RESP 16; O2SAT 99
[2023-11-28 18:36] VITALS: BP 128/65; PULSE 82; RESP 16; TEMP 36.2; O2SAT 97
== END 2023-11-28 18:42 | disposition home or self-care (01) ==
PROVIDERS: Emergency Provider Student in an Organized Health Care Education/Training Program; PCP Internal Medicine; Visit Provider Student in an Organized Health Care Education/Training Program
DX: S29.019A Strain of muscle and tendon of unspecified wall of thorax, initial encounter (principal); E11.9 Type 2 diabetes mellitus without complications; S39.012A Strain of muscle, fascia and tendon of lower back, initial encounter; F17.210 Nicotine dependence, cigarettes, uncomplicated; X58.XXXA Exposure to other specified factors, initial encounter
CPT/HCPCS: 71260; 74177; 80048; 80076; 81001; 83690; 85025; 96361; 96374; 96375; 96376; 99282; J7030; Q9967; A4216; J2405

== ENCOUNTER 2024-05-08 15:54 | Emergency (ER) | payer SELFPAY ==
[2024-05-08 15:55] VITALS: BP 156/105; PULSE 87; RESP 18; TEMP 37.1; O2SAT 97; BMI 36.1
--- NOTE | 2024-05-08 16:07 | EX.ED.DYSGE1 ---
HPI <XI Estrella - Last Filed: 05/08/24 16:37> History of Present Illness Chief Complaint: Cough Narrative Narrative: Patient presenting today with a cough he has had over the past 16 days. He is here with his significant other who has been sick with similar symptoms. He reports that over the last few days his symptoms have been worse. He has had intermittent sweats and chills but is not sure if he has had a fever. He has a PMH of HTN, HLD, and T2DM. PFSH <XI Estrella - Last Filed: 05/08/24 16:37> PENDING SALE TO [facility] Medical History Degenerative disc disease Diabetes mellitus Hyperlipemia Hypertension Home Medications ?Medication ?Instructions ?Recorded ?Last Taken ?Type metformin 500 mg tablet,extended 1,000 mg PO BID 03/11/18 05/19/18 History release 24 hr (Glucophage XR) lisinopril 10 mg tablet 20 mg PO DAILY hypertension 05/20/18 05/19/18 History insulin glargine 100 unit/mL (3 50 units subcut BID 07/31/18 Unknown History mL) subcutaneous pen (Lantus Solostar U-100 Insulin) atorvastatin 20 mg tablet 20 mg PO DAILY 10/26/18 Unknown History dulaglutide 0.75 mg/0.5 mL 0.75 mg subcut WE 12/12/21 Unknown History subcutaneous pen injector (Trulicity) insulin lispro 100 unit/mL 12 unit subcut TID 12/12/21 Unknown History subcutaneous pen insulin lispro 100 unit/mL subcut 12/12/21 Unknown History subcutaneous pen lurasidone 40 mg tablet (Latuda) 40 tab PO DAILY 12/12/21 Unknown History ondansetron 4 mg disintegrating 4 mg PO Q8H PRN PRN Nausea #10 tabs 12/12/21 Unknown Rx tablet oxcarbazepine 300 mg tablet 300 tab PO BID 12/12/21 Unknown History (Trileptal) sertraline 50 mg tablet 50 tab PO DAILY 12/12/21 Unknown History naproxen 500 mg tablet 500 mg PO BID PRN pain #20 tabs 05/06/23 Unknown Rx naproxen 500 mg tablet (Naprosyn) 500 mg PO BID PRN pain #20 tabs 11/28/23 Unknown Rx Allergy/AdvReac Type Severity Reaction Status Date / Time hydrocodone bitartrate (From AdvReac Nausea Verified 05/08/24 15:56 Vicodin) Surgical History History of cholecystectomy Social History Smoking Status: Current every day smoker tobacco type: cigarettes ROS <XI Estrella - Last Filed: 05/08/24 16:37> ROS ED Constitutional Constitutional ED: Reports chills and sweats Cardiovascular Cardiovascular: Denies chest pain Respiratory/Chest Respiratory/Chest: Reports cough; Denies dyspnea or tachypnea Gastrointestinal Gastrointestinal: Denies abdominal pain, nausea or vomiting Musculoskeletal Musculoskeletal: Denies arthralgias or myalgias Integumentary Denies rash Neurologic Neurologic: Denies weakness EXAM <XI Estrella - Last Filed: 05/08/24 16:37> Physical Exam Const Vital Signs: 05/08/24 15:55 Temperature 98.7 F Temperature Source Oral Pulse Rate 87 Respiratory Rate 18 Blood Pressure 156/105 H Blood Pressure Mean 122 Pulse Ox 97 Oxygen Delivery Method Room Air Positive well nourished, well developed and no apparent distress General Appearance ED: well developed HEENT Reports normocephalic and head/scalp atraumatic HEENT Narrative: Posterior pharynx is clear Mouth ED: Yes moist mucous membranes normal Eyes PERRL and EOMs intact bilaterally Neck full ROM and supple Chest Wall inspection of chest normal Resp normal respiratory effort and clear to auscultation bilaterally Cardio regular rate and regular rhythm Back/Spine normal ROM and normal to inspection Extremity normal to inspection and full ROM Neuro oriented x3, CN's II-XII intact bilaterally, moves all extremities, no focal motor deficits and no sensory deficits noted Sensorium / Orientation: awake and alert Psych mental status grossly normal and thought process normal Skin no rashes or lesions noted and no wounds <Dr. Olivier Liu MD - Last Filed: 05/08/24 16:27> Physical Exam Const Vital Signs: 05/08/24 15:55 Temperature 98.7 F Temperature Source Oral Pulse Rate 87 Respiratory Rate 18 Blood Pressure 156/105 H Blood Pressure Mean 122 Pulse Ox 97 Oxygen Delivery Method Room Air MDM <XI Estrella - Last Filed: 05/08/24 16:37> [facility] Narrative Medical decision making narrative: Patient presenting today with a cough that he has had over the past 16 days, his significant other in the room has been sick with similar symptoms. He is nontoxic-appearing, he is afebrile, O2 saturation is 97% on room air. Chest x-ray will be obtained to rule out pneumonia and is negative as interpreted by the attending ED physician. I do suspect that this is viral in nature. I do not think that antibiotics are indicated at this time. I did encourage patient to stop smoking. He will be discharged in stable condition. I have personally performed a face to face assessment of the patient and have reviewed the DAVID Note. I performed a substantive portion of the visit including all aspects of the following. My montez findings include: History is 43-year-old male smoker with 2-week history of cough. No fever. Nonproductive. No hemoptysis. Exam is [well-appearing 43-year-old male. Vital signs stable afebrile. Pulse ox 97% on room air no hypoxia. at bedside. No distress. H EENT exam normal. Posterior pharynx normal. TMs normal. Neck nontender no lymphadenopathy. Lungs clear to auscultation bilaterally. No rales no rhonchi no wheezing. Equal symmetric. Heart regular rate and rhythm rate about 85 no murmur. Chest wall ribs nontender. Abdomen soft nontender. Moving all 4 extremities. Nontender no edema. Neurologically patient is awake alert no focal motor deficits.] Medical Decision Making [chest x-ray obtained. AP and lateral view normal. Treated as a viral syndrome. Fluids and rest. Tylenol and Motrin. No antibiotics.] Other additions or changes: [None] Radiography Diagnostic Testing: Clinical Impression(s) from Imaging Studies Chest X-Ray 05/08/24 16:11 IMPRESSION: Normal x-ray examination of the chest. Electronically Signed: González Styles MD at 16:28 EST , <Dr. Olivier Liu MD - Last Filed: 05/08/24 16:27> [facility] Narrative Medical decision making narrative: Patient presenting today with a cough that he has had over the past 16 days, his significant other in the room has been sick with similar symptoms. He is nontoxic-appearing, he is afebrile, O2 saturation is 97% on room air. Chest x-ray will be obtained to rule out pneumonia. I have personally performed a face to face assessment of the patient and have reviewed the DAVID Note. I performed a substantive portion of the visit including all aspects of the following. My montez findings include: History is 43-year-old male smoker with 2-week history of cough. No fever. Nonproductive. No hemoptysis. Exam is [well-appearing 43-year-old male. Vital signs stable afebrile. Pulse ox 97% on room air no hypoxia. at bedside. No distress. H EENT exam normal. Posterior pharynx normal. TMs normal. Neck nontender no lymphadenopathy. Lungs clear to auscultation bilaterally. No rales no rhonchi no wheezing. Equal symmetric. Heart regular rate and rhythm rate about 85 no murmur. Chest wall ribs nontender. Abdomen soft nontender. Moving all 4 extremities. Nontender no edema. Neurologically patient is awake alert no focal motor deficits.] Medical Decision Making [chest x-ray obtained. AP and lateral view normal. Treated as a viral syndrome. Fluids and rest. Tylenol and Motrin. No antibiotics.] Other additions or changes: [None] Radiography Chest X-Ray - ED: 2 View, Read by ED Physician, Lungs, Mediastinum, Bony Structures, No Acute Disease and Chronic Changes Diagnostic Testing: Clinical Impression(s) from Imaging Studies Chest X-Ray 05/08/24 16:11 IMPRESSION: Normal x-ray examination of the chest. Electronically Signed: González Styles MD at 16:28 EST , Bilateral lower extremity 5 out of 5 muscle strength. Normal range of motion. No cauda equina. No saddle anesthesia. Normal medial thigh sensation. Can lift either leg off the bed. No weakness. No numbness. Discharge Plan Triage Chief Complaint: Cough ED Midlevel Provider: Meagan Ferrari ED Provider: Olivier Liu Dx/Rx/DC Orders Clinical Impression: Bronchitis Instructions: ED Bronchitis, No Antibiotic (Adult) Prescriptions: No Action metformin [Glucophage XR] 500 MG tablet extended release 24 hr 1,000 mg PO BID lisinopril 10 MG tablet 20 mg PO DAILY insulin glargine [Lantus Solostar U-100 Insulin] 100 UNITS/ML insulin pen 50 units subcut BID atorvastatin 20 MG tablet 20 mg PO DAILY oxcarbazepine [Trileptal] 300 mg tablet 300 tab PO BID Patient Comments: Take 1 tablet by mouth twice a day sertraline 50 mg tablet 50 tab PO DAILY Patient Comments: Take 1 tablet by mouth once a day Latuda 40 mg tablet 40 tab PO DAILY Patient Comments: Take 1 tablet by mouth once a day insulin lispro [Humalog Pen] 100 unit/mL Insulin Pen 12 unit SUBCUT TID insulin lispro [Humalog Pen] 100 unit/mL Insulin Pen SUBCUT Rx Instructions: SSI Trulicity 0.75 mg/0.5 mL Pen Injector 0.75 mg SUBCUT WE ondansetron [ondansetron] 4 mg tablet,disintegrating 4 mg PO Q8H PRN PRN (Reason: Nausea) Qty: 10 0RF naproxen 500 mg tablet 500 mg PO BID PRN (Reason: pain) Qty: 20 0RF naproxen [Naprosyn] 500 mg tablet 500 mg PO BID PRN (Reason: pain) Qty: 20 0RF Primary Care Provider: Chio Brown Referrals: Chio Brown MD [Primary Care Provider] - 5-7 Days Activity Restrictions/Additional Instructions: Follow-up with your PCP and return for any worsening of your symptoms. Print Language: Portuguese Disposition Disposition: Home, Self Care Discharge Date/Time: 05/08/24 16:32
--- NOTE | 2024-05-08 16:11 | RAD_ITS ---
STUDY: X-RAY CHEST REASON FOR EXAM: Male, 43 years old. cough TECHNIQUE: Frontal and lateral views of the chest. COMPARISON: 12/02/2020.. FINDINGS: The lungs are clear and expanded. There is no demonstrated pleural abnormality. Normal size heart. Normal mediastinum and matthew. Normal visualized pulmonary arteries. Normal visualized aortic arch and descending thoracic aorta. Normal visualized thoracic spine. Normal visualized ribs, clavicles, and shoulders. There is no demonstrated abnormality of the visualized soft tissue structures of the upper abdomen. RAD/Chest PA and Lateral IMPRESSION: Normal x-ray examination of the chest. Electronically Signed: González Styles MD at 16:28 EST ,
== END 2024-05-08 16:32 | disposition home or self-care (01) ==
LOC: ED 16:27
PROVIDERS: Emergency Provider Emergency Medicine; PCP Internal Medicine; Visit Provider Emergency Medicine
DX: J40 Bronchitis, not specified as acute or chronic (principal); E11.9 Type 2 diabetes mellitus without complications; F17.210 Nicotine dependence, cigarettes, uncomplicated
CPT/HCPCS: 71046; 99282

== ENCOUNTER 2024-08-24 16:32 | Emergency (ER) | payer SELFPAY ==
[2024-08-24 16:33] VITALS: BP 155/90; PULSE 97; RESP 16; TEMP 36.7; O2SAT 99
--- NOTE | 2024-08-24 17:40 | EX.ED.DYSGE1 ---
HPI History of Present Illness Chief Complaint: Hyperglycemia Detail of Chief Complaint: Hyperglycemia due to noncompliance Narrative Narrative: I was informed by nurse and staff that patient has left. She was not seen by me. [facility] Medical History Degenerative disc disease Diabetes mellitus Hyperlipemia Hypertension Home Medications ?Medication ?Instructions ?Recorded ?Last Taken ?Type metformin 500 mg tablet,extended 1,000 mg PO BID 03/11/18 05/19/18 History release 24 hr (Glucophage XR) lisinopril 10 mg tablet 20 mg PO DAILY hypertension 05/20/18 05/19/18 History insulin glargine 100 unit/mL (3 50 units subcut BID 07/31/18 Unknown History mL) subcutaneous pen (Lantus Solostar U-100 Insulin) atorvastatin 20 mg tablet 20 mg PO DAILY 10/26/18 Unknown History dulaglutide 0.75 mg/0.5 mL 0.75 mg subcut WE 12/12/21 Unknown History subcutaneous pen injector (Trulicity) insulin lispro 100 unit/mL 12 unit subcut TID 12/12/21 Unknown History subcutaneous pen insulin lispro 100 unit/mL subcut 12/12/21 Unknown History subcutaneous pen lurasidone 40 mg tablet (Latuda) 40 tab PO DAILY 12/12/21 Unknown History ondansetron 4 mg disintegrating 4 mg PO Q8H PRN PRN Nausea #10 tabs 12/12/21 Unknown Rx tablet oxcarbazepine 300 mg tablet 300 tab PO BID 12/12/21 Unknown History (Trileptal) sertraline 50 mg tablet 50 tab PO DAILY 12/12/21 Unknown History naproxen 500 mg tablet 500 mg PO BID PRN pain #20 tabs 05/06/23 Unknown Rx naproxen 500 mg tablet (Naprosyn) 500 mg PO BID PRN pain #20 tabs 11/28/23 Unknown Rx Allergy/AdvReac Type Severity Reaction Status Date / Time hydrocodone bitartrate (From AdvReac Nausea Verified 05/08/24 15:56 Vicodin) Surgical History History of cholecystectomy Social History Smoking Status: Current every day smoker tobacco type: cigarettes EXAM Physical Exam Const Vital Signs: 08/24/24 16:33 Temperature 98.1 F Temperature Source Temporal Pulse Rate 97 Respiratory Rate 16 Blood Pressure 155/90 H Blood Pressure Mean 111 Pulse Ox 99 Oxygen Delivery Method Room Air MDM MDM MDM Narrative Medical decision making narrative: Hyperglycemia due to noncompliance. Patient left prior to the IV and blood draw. Patient left prior to me seeing her. Discharge Plan Triage Chief Complaint: Hyperglycemia ED Provider: Fadi Wong Dx/Rx/DC Orders Clinical Impression: Patient left without being seen, Type 2 diabetes mellitus with hyperglycemia, Noncompliance with medication regimen Prescriptions: No Action metformin [Glucophage XR] 500 MG tablet extended release 24 hr 1,000 mg PO BID lisinopril 10 MG tablet 20 mg PO DAILY insulin glargine [Lantus Solostar U-100 Insulin] 100 UNITS/ML insulin pen 50 units subcut BID atorvastatin 20 MG tablet 20 mg PO DAILY oxcarbazepine [Trileptal] 300 mg tablet 300 tab PO BID Patient Comments: Take 1 tablet by mouth twice a day sertraline 50 mg tablet 50 tab PO DAILY Patient Comments: Take 1 tablet by mouth once a day Latuda 40 mg tablet 40 tab PO DAILY Patient Comments: Take 1 tablet by mouth once a day insulin lispro [Humalog Pen] 100 unit/mL Insulin Pen 12 unit SUBCUT TID insulin lispro [Humalog Pen] 100 unit/mL Insulin Pen SUBCUT Rx Instructions: SSI Trulicity 0.75 mg/0.5 mL Pen Injector 0.75 mg SUBCUT WE ondansetron [ondansetron] 4 mg tablet,disintegrating 4 mg PO Q8H PRN PRN (Reason: Nausea) Qty: 10 0RF naproxen 500 mg tablet 500 mg PO BID PRN (Reason: pain) Qty: 20 0RF naproxen [Naprosyn] 500 mg tablet 500 mg PO BID PRN (Reason: pain) Qty: 20 0RF Primary Care Provider: Chio Brown Referrals: Chio Brown MD [Primary Care Provider] - Print Language: Slovak Disposition Disposition: LEFT WITHOUT BEING SEEN
--- NOTE | 2024-08-24 17:47 | ED.RN ---
Pt was lying on the floor between hallway beds. This RN informed pt that he needed to sit in the chair for sanitary reasons as well as patient confidentiality of neighboring hallway bed pt's. Pt got irate and yelled I need a fucking bed! This RN stated that he could continue to wait for a bed in the waiting room but that this would get him seen faster and that there are no beds available at this time. Pt states I'm fucking leaving and left ED. Educated family member of pt on the process and how he was getting seen faster but unfortunately he would have to sit in a chair. Pt family confirms understanding and states I'll talk to him. Pt did not return.
== END 2024-08-24 17:58 | disposition left against medical advice (07) ==
LOC: ED 17:57
PROVIDERS: Emergency Provider Emergency Medicine; PCP Internal Medicine; Visit Provider Emergency Medicine
DX: Z53.21 Procedure and treatment not carried out due to patient leaving prior to being seen by health care provider (principal); E11.65 Type 2 diabetes mellitus with hyperglycemia
CPT/HCPCS: 99281

== ENCOUNTER 2025-06-03 14:19 | Emergency (ER) | payer MEDICAID, SELFPAY ==
[2025-06-03 14:19] VITALS: BP 177/106; PULSE 113; RESP 16; TEMP 36.8; O2SAT 100; BMI 37.5
--- NOTE | 2025-06-03 15:04 | CT_ITS ---
EXAM: CT Head Without Intravenous Contrast CLINICAL INDICATION: FALL, HIT HEAD TECHNIQUE: Axial computed tomography images of the head/brain without intravenous contrast. This CT exam was performed using one or more of the following dose reduction techniques: automated exposure control, adjustment of the mA and/or kV according to patient size, and/or use of iterative reconstruction technique. RADIATION DOSE: CTDIvol = 18.8 mGy, DLP = 1346.2 mGy-cm COMPARISON: No relevant prior studies available. FINDINGS: BRAIN AND EXTRA-AXIAL SPACES: No acute intracranial hemorrhage, midline shift or mass effect. If symptoms persist, further evaluation with MRI is recommended. No significant white matter disease. BONES/JOINTS: Unremarkable. No acute fracture. SOFT TISSUES: Unremarkable. SINUSES: Unremarkable as visualized. No acute sinusitis. MASTOID AIR CELLS: Unremarkable as visualized. No mastoid effusion. CT/Brain/Head without Contrast IMPRESSION: No acute intracranial hemorrhage, midline shift or mass effect. If symptoms per sist, further evaluation with MRI is recommended. Reading Location: [id number]
--- NOTE | 2025-06-03 15:04 | CT_ITS ---
EXAM: CT Cervical Spine Without Intravenous Contrast CLINICAL INDICATION: FALL TECHNIQUE: Axial computed tomography images of the cervical spine without intravenous contrast. This CT exam was performed using one or more of the following dose reduction techniques: automated exposure control, adjustment of the mA and/or kV according to patient size, and/or use of iterative reconstruction technique. RADIATION DOSE: CTDIvol = 47 mGy, DLP = 1346 mGy-cm COMPARISON: No relevant prior studies available. FINDINGS: VERTEBRAE: Degenerative facet arthropathy throughout the cervical spine. No acute fracture. DISCS/SPINAL CANAL/NEURAL FORAMINA: Degenerative disc disease lower cervical spine. SOFT TISSUES: Unremarkable. CT/Spine Cervical without Contras IMPRESSION: 1. No acute fracture. 2. Degenerative changes cervical spine as described. Reading Location: [id number]
--- NOTE | 2025-06-03 15:06 | EDS_ITS ---
HPI HPI - Fall History of Present Illness Chief Complaint: Fall Narrative Narrative: Patient is a 44-year-old male presenting to the emergency department for a fall. Patient has a past medical history of degenerative disc disease, diabetes, hyperlipidemia, hypertension and morbid obesity. Patient states that he was trying to put something up to his truck when he slipped on ice falling backwards striking the back of his head and both elbows. States that he did not lose consciousness and is not on any oral anticoagulation. States that he was able to get up by himself and ambulate afterwards. He drove himself here. He is endorsing neck pain and bilateral elbow pain. [facility] Medical History Degenerative disc disease Diabetes mellitus Hyperlipemia Hypertension Home Medications ?Medication ?Instructions ?Recorded ?Last Taken ?Type metformin 500 mg tablet,extended 1,000 mg PO BID 03/1105/19/18 History release 24 hr (Glucophage XR) lisinopril 10 mg tablet 20 mg PO DAILY hypertension 05/20/18 05/19/18 History insulin glargine 100 unit/mL (3 50 units subcut BID Unknown History mL) subcutaneous pen (Lantus Solostar U-100 Insulin) atorvastatin 20 mg tablet 20 mg PO DAILY 10/26/18 Unkn own History dulaglutide 0.75 mg/0.5 mL 0.75 mg subcut WE 12/12/21 Unknown History subcutaneous pen injector (Trulicity) insulin lispro 100 unit/mL 12 unit subcut TID 12/12/21 Unknown History subcutaneous pen insulin lispro 100 unit/mL subcut 12/12/21 Unknown His tory subcutaneous pen lurasidone 40 mg tablet (Latuda) 40 tab PO DAILY 12/12 Unknown History ondansetron 4 mg disintegrating 4 mg PO Q8H PRN PRN Na usea #10 tabs 12/12/21 Unknown Rx tablet oxcarbazepine 300 mg tablet 300 tab PO BID 12/12/21 Un known History (Trileptal) sertraline 50 mg tablet 50 tab PO DAILY 12/12/21 Unk nown History naproxen 500 mg tablet 500 mg PO BID PRN pain #20 t abs 05/06/23 Unknown Rx naproxen 500 mg tablet (Naprosyn) 500 mg PO BID PRN pa in #20 tabs 11/28/23 Unknown Rx Allergy/AdvReac Type Severity Reaction Status Date / Time hydrocodone bitartrate (From AdvReac Nausea Verified 06/03/25 14:19 Vicodin) Surgical History History of cholecystectomy Social History Smoking Status: Current every day smoker tobacco type: cigarettes ROS ROS ED ROS Narrative see HPI EXAM Physical Exam Narrative Exam Narrative: Vital signs: Reviewed General: Alert and orientedx3. No acute distress. Well appearing, nontoxic. HEENT: Head is normocephalic and atraumatic. No cephalhematoma, lacerations or abrasions to the scalp or face. Sinuses nontender, pupils equal round and reactive. 2mm bilaterally. EOMI. Nares are patent. No septal hematoma. Oropharynx and throat exams normal. No oropharyngeal trauma. Neck: Supple without lymphadenopathy nontender. There is midline cervical spinal tenderness to palpation. No step-offs or deformities. Cardiovascular: Regular rate and rhythm, no murmurs. No rubs or gallops. Normal S1 and S2 Respiratory: Clear to auscultation bilaterally. No wheezes, rales, rhonchi Chest: There is mild bilateral chest wall tenderness underneath both pecs. No crepitus, erythema or ecchymosis. Abdominal: Soft and nontender. Normal bowel sounds. No guarding or rebound. Nonsurgical abdomen Back: No midline thoracic or lumbar spinal tenderness to palpation. No step- offs or deformities. Extremities: Hips are stable and nontender to palpation. There is bilateral elbow tenderness to palpation with no obvious deformities and normal active range of motion with flexion extension of elbow. Otherwise bilateral upper extremities and bilateral lower extremities are atraumatic and nontender to palpation with normal active range of motion. Normal sensation. Skin: No rash or redness. Neurological: Cranial nerves II through XII are grossly intact. Normal strength and sensation. Normal cerebellar function The rest of the physical exam is unremarkable Const Vital Signs: 06/03/25 14:19 06/03/25 15:00 06/03/25 15:38 Temperature 98.3 F Temperature Source Oral Pulse Rate 113 H 93 Respiratory Rate 16 18 Respiratory Effort Normal Blood Pressure 177/106 H 148/91 H Blood Pressure Mean 129 110 Pulse Ox 100 96 Oxygen Delivery Method Room Air Room Air Room Air 06/03/25 16:33 Temperature 98.1 F Temperature Source Pulse Rate 96 Respiratory Rate 18 Respiratory Effort Blood Pressure 159/94 H Blood Pressure Mean 115 Pulse Ox 97 Oxygen Delivery Method MDM MDM MDM Narrative Medical decision making narrative: Patient is a 44-year-old male presenting to the emergency department for a mechanical fall. Patient was seen and examined. Vitals are stable, he is hypertensive at 177/106 and does have a history of hypertension for which he is on lisinopril. Patient resting in bed comfortably no acute distress. CT of the brain and cervical spine were obtained. Patient placed in cervical c ollar. Bilateral elbow x-rays and a chest x-ray were obtained to rule out any fracture however I think it is very unlikely given normal active ROM of both elbows and only mild tenderness to palpation of chest wall. Patient given IM morphine for pain control. X-rays were reviewed by myself and there is no evidence of fracture or dislocation. X-ray of the chest was reviewed and there is no evidence of pneumothorax or rib fractures. Radiology in agreement. CT the brain with no acute intracranial hemorrhage, midline shift or mass effect. CT cervical spine with degenerative changes and no acute fracture. Patient was updated on the negative imaging. Recommended Tylenol and Motrin at home for pain control. Able to ambulate without difficulty. Active range of motion of neck without significant midline pain. Patient discharged from the Emergency Department. I do not feel that the patient's evaluation reveals any acute reason for admission at this time. I instructed them to either follow-up with their primary care physician or promptly return to the Emergency Department for reevaluation should symptoms worsen or new symptoms develop. I explained what symptoms would indicate the need to return to the emergency department. Shared decision making was used. The patient voiced understanding of the treatment plan and is agreeable with it. Clinical impression Mechanical fall Head trauma Elbow contusion History & Record Review Discussion w/independent historian: Patient Radiography Chest X-Ray - ED: 2 View, Read by ED Physician and No Acute Disease X-Ray: Read by ED Physician, Normal and No Fracture Diagnostic Testing: Clinical Impression(s) from Imaging Studies Brain CT 06/03/25 15:04 IMPRESSION: No acute intracranial hemorrhage, midline shift or mass effect. If symptoms persist, further evaluation with MRI is recommended. Reading Location: [facility] Cervical Spine CT 06/03/25 15:04 IMPRESSION: 1. No acute fracture. 2. Degenerative changes cervical spine as described. Reading Location: [facility] Chest X-Ray 06/03/25 15:20 IMPRESSION: At least mild right hemidiaphragm elevation is noted. Lungs appear clear of acute disease. No pleural effusion or pneumothorax is seen. The cardiomediastinal silhouette is unchanged, without evidence of cardiomegaly. Mild thoracic spine degenerative changes are noted. No acute osseous process is evident. No evidence of acute cardiopulmonary disease. Reading Location: [address] Elbow X-Ray 06/03/25 15:20 IMPRESSION: NO ACUTE FRACTURE OR DISLOCATION. Reading Location: [facility] [place]bow X-Ray 06/03/25 15:20 IMPRESSION: NO ACUTE FRACTURE OR DISLOCATION. Reading Location: [facility] [place] Discharge Plan Triage Chief Complaint: Fall ED Provider: Bianca Leo Dx/Rx/DC Orders Clinical Impression: Fall, Head injury, Neck pain, Back pain, Contusion of elbow Instructions: ED Back Pain (Acute or Chronic), ED Mechanical Fall, ED Neck Pain Prescriptions: No Action metformin [Glucophage XR] 500 MG tablet extended release 24 hr 1,000 mg PO BID lisinopril 10 MG tablet 20 mg PO DAILY insulin glargine [Lantus Solostar U-100 Insulin] 100 UNITS/ML insulin pen 50 units subcut BID atorvastatin 20 MG tablet 20 mg PO DAILY oxcarbazepine [Trileptal] 300 mg tablet 300 tab PO BID Patient Comments: Take 1 tablet by mouth twice a day sertraline 50 mg tablet 50 tab PO DAILY Patient Comments: Take 1 tablet by mouth once a day Latuda 40 mg tablet 40 tab PO DAILY Patient Comments: Take 1 tablet by mouth once a day insulin lispro [Humalog Pen] 100 unit/mL Insulin Pen 12 unit SUBCUT TID insulin lispro [Humalog Pen] 100 unit/mL Insulin Pen SUBCUT Rx Instructions: SSI Trulicity 0.75 mg/0.5 mL Pen Injector 0.75 mg SUBCUT WE ondansetron [ondansetron] 4 mg tablet,disintegrating 4 mg PO Q8H PRN PRN (Reason: Nausea) Qty: 10 0RF naproxen 500 mg tablet 500 mg PO BID PRN (Reason: pain) Qty: 20 0RF naproxen [Naprosyn] 500 mg tablet 500 mg PO BID PRN (Reason: pain) Qty: 20 0RF Primary Care Provider: Chio Brown Referrals: Chio Brown MD [Primary Care Provider, Internal Medicine] - As soon as possible Activity Restrictions/Additional Instructions: Your evaluation in the Emergency Department did not reveal any acute reason for admission. However, I want to emphasize that you may be early in the course of a disease process or illness even if it is not present. For this reason you should follow-up within 24 hours for reevaluation with either your primary care physician or if necessary back here in the Emergency Department. You should return to the Emergency Department immediately if your symptoms worsen or new symptoms develop. Print Language: Faroese Disposition Disposition: Home, Self Care Discharge Date/Time: 06/03/25 16:37
--- NOTE | 2025-06-03 15:20 | RAD_ITS ---
PROCEDURE: ELBOW MIN 3 VIEWS 06/03/2025 REASON FOR EXAM: PAIN, FALL TECHNIQUE: Procedure Code: RADEL Modality: DX Procedure: ELBOW MIN 3 VIEWS Laterality: Left COMPARISON: None. FINDINGS: BONES: No acute fracture or focal osseous lesion. JOINTS: No dislocation. The joint spaces are normal. No signs of elbow joint effusion. SOFT TISSUES: The soft tissues are unremarkable. RAD/Elbow min 3 Views IMPRESSION: NO ACUTE FRACTURE OR DISLOCATION. Reading Location: [id number]
--- NOTE | 2025-06-03 15:20 | RAD_ITS ---
PROCEDURE: CHEST PA AND LATERAL 06/03/2025 REASON FOR EXAM: CHEST WALL PAIN, BILATERAL LOWER TECHNIQUE: Procedure Code: RADCXR Modality: DX Procedure: Three-view PA and lateral chest COMPARISON: Chest x-ray of 05/08/2024. RAD/Chest PA and Lateral IMPRESSION: At least mild right hemidiaphragm elevation is noted. Lungs appear clear of acute disease. No pleural effusion or pneumothorax is seen. The cardiomediastinal silhouette is unchanged, without evidence of cardiomegaly . Mild thoracic spine degenerative changes are noted. No acute osseous process is evident. No evidence of acute cardiopulmonary disease. Reading Location: [id number]
--- NOTE | 2025-06-03 15:20 | RAD_ITS ---
PROCEDURE: ELBOW MIN 3 VIEWS 06/03/2025 REASON FOR EXAM: PAIN, FALL TECHNIQUE: Procedure Code: RADEL Modality: DX Procedure: ELBOW MIN 3 VIEWS Laterality: Right COMPARISON: None. FINDINGS: BONES: No acute fracture or focal osseous lesion. JOINTS: No dislocation. The joint spaces are normal. No signs of elbow joint effusion. SOFT TISSUES: The soft tissues are unremarkable. RAD/Elbow min 3 Views IMPRESSION: NO ACUTE FRACTURE OR DISLOCATION. Reading Location: [id number]
[2025-06-03 15:38] VITALS: BP 148/91; PULSE 93; RESP 18; O2SAT 96
[2025-06-03 16:33] VITALS: BP 159/94; PULSE 96; RESP 18; TEMP 36.7; O2SAT 97
--- OUTSIDE RECORDS SUMMARY | 2025-06-03 18:13 | XMS RPT_ITS | CCD ---
Author Organization [facility] Care Team Providers Care Manhole Stripper Name Role Phone CAROLEESABINO DONNA Tete Unavailable Unavailable MICHELLE JANE Unavailable Unavailable Michelle Jane MD Primary Care Provider [facility], Kye Unavailable Unavailable Primary Care Provider UnavailSHIVANI Mckeon Admitting Unavailable GEO FABIAN Attending Unavailab le [facility] Consulting Unav Michelle Pascal MD Primary Care Provider JONATHAN SALEEM Consulting Unavailable MANISHA, DR STIVEN Boyle Attending Unavailable DYER, DR STIVEN Boyle Primary Care Unavailable MANISHA, DR STIVEN Boyle Admitting Unavailable PROVIDER, UNKNOWN Consulting Unavailable YU, DR GUMARO Mayo Attending Unavaila ble YU, DR GUMARO Mayo Primary Care Unavaila ble YU, DR GUMARO Mayo Admitting Unavaila ble JONATHAN SALEEM Referring Unavailable JONATHAN SALEEM Consulting Unavailable PROVIDER, UNKNOWN Consulting Unavailable JONATHAN SALEEM Consulting Unavailable COLIN GOULD Attending Unavailable COLIN GOULD Primary Care Unavailable COLIN GOULD Admitting Unavailable PROVIDER, UNKNOWN Consulting Unavailable Michelle Jane MD Primary Care Provider [facility], Kye Unavailable Doug Gordon MD Unavailable [facility], Kye Unavailable Michelle Jane MD Primary Care Provider IAIN NGUYỄN Referring Unavailable TALAMPAS, MICHELLE D Primary Care Unavailable [facility], Kye Unavailable IAIN NGUYỄN Attending Unavailable IAIN NGUYỄN Admitting Unavailable TALAMPAS, MICHELLE D Primary Care Unavailable Cervantes DIGITAL STRATEGIST.CHILD & ADOLESCENT PSYCHIATRIST, Britney Unavailable Carlton DIGITAL STRATEGIST.POLYSOMNOGRAPHY TECHNICIAN, Kaylee Unavailable MD Ronal Duong MD Emergency Provider PCP, DO Unknown Primary Care Provider Unavailabl e Carlton DIGITAL STRATEGIST.POLYSOMNOGRAPHY TECHNICIAN, Kaylee Unavailable MD Ronal Duong MD Emergency Provider PCP, DO Unknown Primary Care Provider Unavailabl e [facility], Kye Unavailable PCP, Unknown Primary Care Unavailable Ronal Duong MD Attending Unavailable Carlton DIGITAL STRATEGIST.POLYSOMNOGRAPHY TECHNICIAN, Kaylee Unavailable Carlton DIGITAL STRATEGIST.POLYSOMNOGRAPHY TECHNICIAN, Kaylee Unavailable Talampas, Michelle D Primary Care Unavailable David Morris Attending Unavailable Talampas, Michelle D Primary Care Unavailable Olivier Liu Attending Unavailable Talampas, Michelle D Primary Care Unavailable Fadi Wong Attending Unavailable Cervantes DIGITAL STRATEGIST.CHILD & ADOLESCENT PSYCHIATRIST, Britney Unavailable TALAMPAS, MICHELLE D Primary Care Unavailable KAYLEE VINCENT Attending Unavailable TALAMPAS, MICHELLE D Primary Care Unavailable TALAMPAS, MICHELLE D Primary Care Unavailable TALAMPAS, MICHELLE D Primary Care Unavailable TALAMPAS, MICHELLE D Primary Care Unavailable TALAMPAS, MICHELLE D Primary Care Unavailable TALAMPAS, MICHELLE D Primary Care Unavailable TALAMPAS, MICHELLE D Referring Unavailable TALAMPAS, MICHELLE D Primary Care Unavailable TALAMPAS, MIHCELLE D Primary Care Unavailable CARLTONKAYLEE Attending Unavailable CARLTON KAYLEE Referring Unavailable TALAMPAS, MICHELLE D Primary Care Unavailable Allergies Allergy Classification Reported Allergen(s) Allergy Type Date of Onset Reaction(s) Facility dulaglutide (2 sources) dulaglutide Drug Allergy 07-17-19 24 Contraindication -Medical Surgical [facility] Work Phone: Opioid Agonists (2 sources) HYDROcodone Drug Allergy 01-20-20 17 GI Upset [facility] (20 sources) Acetaminophen / HYDROcodone; Translations: [HYDROCODONE-MADDI TAMINOPHEN] Drug Allergy 02-25-20 09 GI Upset, Hallucinations [facility] Work Phone: (20 sources) HYDROcodone; Translations: [HYDROCODONE BITARTRATE] Drug Allergy 01-20-20 17 GI Upset [facility] Work Phone: (4 sources) metFORMIN Drug Allergy 03-25-20 12 Diarrhea [facility] Work Phone: (20 sources) Fibrate Anti-Lipidemics; Translations: [FIBRATE ANTI-LIPIDEMICS] Drug Intolerance 01-16-20 19 Myalgia [facility] Work Phone: (20 sources) dulaglutide; Translations: [DULAGLUTIDE] Drug Allergy 07-17-19 24 Contraindication -Medical Surgical [facility] Work Phone: (6 sources) Acetaminophen Drug Allergy 07-28-19 25 Confusion [facility] Work Phone: (6 sources) HYDROcodone Drug Allergy 07-28-19 25 Confusion [facility] Work Phone: (1 source) Acetaminophen Drug Allergy 07-28-19 25 [facility] (1 source) HYDROcodone Drug Allergy 07-28-19 25 [facility] (1 source) HYDROcodone Drug Allergy 05-08-20 24 [facility] Repository Medications Current Medications Medication Drug Class(es) Dates Sig (Normalized) Sig (Original) blood-glucose meter Misc (2 sources) Start: 09-26-2021 blood-glucose meter Misc Check your sugars up to 4 times a day . 1 each 0 09/26/2021 Active Start: 09-26-2021 blood-glucose meter Misc Check your sugars up to 4 times a day . 1 each 0 09/26/2021 Blood-Glucose Sensor (DEXCOM G7 SENSOR) [facility] (20 sources) Start: 06-26-2023 Blood-Glucose Sensor (DEXCOM G7 SENSOR) [facility] Apply new sensor every ten (10) days. 9 Each 3 06/26/2023 Active Start: 09-14-2022 Blood-Glucose Sensor (DEXCOM G7 SENSOR) [facility] Apply new sensor every ten (10) days. 9 Each 3 09/14/2022 Active Comment on above: Apply new sensor mary ellen ry ten (10) days. Blood-Glucose Sensor (FREESTYLE JOSE 3 PLUS SENSOR) [facility] (12 sources) Start: 5 Blood-Glucose Sensor (FREESTYLE JOSE 3 PLUS SENSOR) [facility]son Indications: Uncontrolled type 2 diabetes mellitus with hyperglycemia (HCC) Apply new sensor every fifteen (15) days to upper arm. 6 Each 4 09/07/2024 Active cholecalciferol 0.125 mg oral capsule (20 sources) Vitamin D Start: 4 take 1 capsule by mouth once daily Cholecalciferol, Vitamin D3, 125 mcg (5,000 unit) cap Take 1 capsule by mouth once daily. 90 capsule 3 07/17/2023 Active Start: 10-23-2018 End: 11-14-2020 take 1 tablet by mouth once daily cholecalciferol (VITAMIN D3) 1,000 unit tab tablet Take 1 tablet by mouth once daily. 10/23/2018 11/14/2020 Discontinued Comment on above: Take 1 capsule by [facility] once daily. clonazePAM 1 mg oral tablet (16 sources) Benzodiazepine Start: 5 End: 5 take 1 tablet by mouth three times daily as needed for anxiety clonazePAM (KLONOPIN) 1 mg tablet Indications: Bipolar disorder, current episode mixed, moderate (HCC) Take 1 tablet by mouth three times a day as needed for anxiety for up to 30 days. 90 tablet 09/07/2024 Active Start: 09-01-2024 End: 09-08-2024 take 1 tablet by mouth twice daily as needed for anxiety clonazePAM (KLONOPIN) 1 mg tablet Indications: Bipolar disorder, current episode mixed, moderate (HCC) Take 1 tablet by mouth two times a day as needed for anxiety for up to 7 days. 14 tablet 09/01/2024 09/07/2024 Discontinued CPAP (20 sources) Start: 10-14-2019 CPAP Indicatio ns: BERYL (obstructive sleep apnea) , Essential hypertension Autopap 5-20 cm H2O, Heat Humidity, suitable mask, Lifetime supplies, opt [place], G47.33. 1 Device 10/14/2019 Active Start: 10-14-2019 CPAP Indicatio ns: BERYL (obstructive sleep apnea) , Essential hypertension Autopap 5-20 cm H2O, Heat Humidity, suitable mask, Lifetime supplies, opt [place], G47.33. 1 Device 0 10/14/2019 Active Comment on above: Autopap 5-20 cm H2O, Heat Humidity, suitable mask, Lifetime supplies, opt [place], G47.33. empagliflozin 10 mg oral tablet (20 sources) Sodium-Glucose Cotransporter 2 Inhibitor Start: 025 take 1 tablet by mouth once daily at breakfast empagliflozin (JARDIANCE) 10 mg tablet Indications: Uncontrolled type 2 diabetes mellitus with hyperglycemia (HCC) Take 1 tablet by mouth daily with breakfast. 30 tablet 5 09/16/2024 Active Start: 10-21-2023 End: 12-04-2023 take 1 tablet by mouth once daily at breakfast empagliflozin (JARDIANCE) 10 mg tablet Indications: Uncontrolled type 2 diabetes mellitus with hyperglycemia (HCC) Take 1 tablet by mouth daily with breakfast. 30 tablet 11 12/04/2023 Active flash glucose scanning reader (FREESTYLE JOSE 2 READER) (1 source) Start: 02-06-2022 End: 02-07-2022 flash glucose scanning reader (FREESTYLE JOSE 2 READER) Use to check blood sugar at least four (4) times daily. 1 Each 0 02/06/2022 02/07/2022 Active Comment on above: Use to check blood s ugar at least four (4) times daily. 3 ml insulin glargine 100 unt/ml pen injector (20 sources) Insulin Analog Start: 01-06-2025 inject 64 [IU] by subcutaneous injection twice daily insulin glargine 100 unit/mL (3 mL) Indications: Uncontrolled type 2 diabetes mellitus with hyperglycemia (HCC) Inject 64 Units subcutaneously two times a day. 117 mL 3 01/06/2025 Active Start: 10-28-2024 End: 01-06-2025 inject 56 [IU] by subcutaneous injection twice daily insulin glargine 100 unit/mL (3 mL) Indications: Uncontrolled type 2 diabetes mellitus with hyperglycemia (HCC) Inject 56 Units subcutaneously two times a day. or as directed 102 mL 3 10/28/2024 01/06/2025 Discontinued Start: 09-01-2024 End: 05-07-2025 inject 50 [IU] by subcutaneous injection once daily at bedtime insulin glargine 100 unit/mL (3 mL) Indications: Uncontrolled type 2 diabetes mellitus with hyperglycemia (HCC) Inject 50 Units subcutaneously daily at bedtime. or as directed 3 mL 2 09/01/2024 10/28/2024 Discontinued Start: 10-04-2023 End: 09-01-2024 inject 50 [IU] by subcutaneous injection twice daily insulin glargine 100 unit/mL (3 mL) Inject 50 Units subcutaneously two times a day. or as directed 90 mL 3 10/04/2023 09/01/2024 Discontinued Start: 02-12-2023 End: 10-04-2023 inject 32 [IU] by subcutaneous injection twice daily insulin glargine 100 unit/mL (3 mL) Inject 32 Units subcutaneously twice daily. or as directed 90 mL 3 02/12/2023 10/04/2023 Discontinued Start: 02-12-2023 inject 32 [IU] by barron bcutaneous injection twice daily insulin glargine 100 unit/mL (3 mL) Inject 32 Units subcutaneously twice daily. or as directed 90 mL 3 02/12/2023 Active Start: 09-14-2022 End: 02-12-2023 inject 50 [IU] by subcutaneous injection twice daily insulin glargine 100 unit/mL (3 mL) Inject 50 Units subcutaneously twice daily. 90 mL 3 09/14/2022 02/12/2023 Discontinued (Adjust Sig - Block E-Cancel) Start: 11-15-2021 insulin glargi ne (LANTUS SOLOSTAR, BASAGLAR KWIKPEN) 100 unit/mL (3 mL) Inject 30 Units subcutaneously twice daily. Increase by 2 units every 3 days for goal FBG 10 Pen 11 11/15/2021 Active Start: 11-15-2021 End: 11-15-2021 insulin glargine (LANTUS RHONDA OSTAR, BASAGLAR KWIKPEN) 100 unit/mL (3 mL) Inject 30 Units subcutaneously twice daily. Increase by 2 units every 3 days for goal FBG 10 Pen 11 11/15/2021 Active Start: 09-25-2021 End: 09-27-2021 insulin glargine (LANTUS) injection 26 Units Start: 09-25-2021 insulin glargi ne (LANTUS SOLOSTAR/BASAGLAR KWIKPEN) 100 unit/mL (3 mL) InPn Inject 26 (twenty six) Units under the skin 2 (two) times a day . 15 mL 0 09/25/2021 Active Start: 09-25-2021 End: 09-25-2021 insulin glargine (LANTUS) injection 22 Units Start: 09-24-2021 End: 09-25-2021 insulin glargine (LANTUS) injection 40 Units Start: 09-23-2021 End: 09-24-2021 insulin glargine (LANTUS) injection 34 Units Start: 09-22-2021 End: 09-23-2021 insulin glargine (LANTUS) injection 28 Units Start: 09-12-2021 inject 2 [IU] by sub cutaneous injection at bedtime insulin glargine (LANTUS SOLOSTAR, BASAGLAR KWIKPEN) 100 unit/mL (3 mL) Inject 26 Units subcutaneously daily at bedtime. Increase by 2 units every 3 days for goal FBG 8 Pen 3 09/12/2021 Active Start: 09-12-2021 End: 09-25-2021 insulin glargine (LANTUS SOLOSTAR/BASAGLAR KWIKPEN) 100 unit/mL (3 mL) InPn Inject 26 Units under the skin every night at bedtime . 0 09/12/2021 09/25/2021 Discontinued (Reorder) Start: 07-31-2018 Insulin Glargi ne (Lantus Solostar U-100 Insulin) 100 UNITS/ML insulin pen Active 50 UNITS SC TWICE A DAY July 31, 2018 5:28pm Start: 07-31-2018 Insulin Glargi ne (Lantus Solostar U-100 Insulin) 100 UNITS/ML insulin pen Active 28 UNITS SC AT BEDTIME July 31, 2018 6:28pm Start: 05-21-2018 End: 07-31-2018 Insulin Glargine (Lantus Rhonda ostar U-100 Insulin) 100 UNITS/ML Pen Discontinued 10 UNITS SC AT BEDTIME May 21, 2018 12:00am July 31, 2018 5:28pm End: 09-22-2021 insulin glargine (LANTUS) 10 0 unit/mL injection Inject under the skin nightly . 0 09/22/2021 Discontinued (Duplicate order) Comment on above: Inject 26 Units subcutaneously daily at bedtime. Increase by 2 units every 3 days for goal FBG <130. Max of 50 units/day. Inject 30 Units subc utaneously twice daily. Increase by 2 units every 3 days for goal FBG <130. Max of 90 units/day. Inject 30 Units subc utaneously twice daily. Increase by 2 units every 3 days for goal FBG <130. Max of 50 units/day. Inject 50 Units subc utaneously twice daily. Inject 32 Units subc utaneously twice daily. or as directed Inject 50 Units subc utaneously two times a day. or as directed Insulin Glargine (Lantus Solostar U-100 Insulin) 100 UNITS/ML insulin pen (1 source) Start: 019 Insulin Glargine (Lantus Solostar U-100 Insulin) 100 UNITS/ML insulin pen Active 50 UNITS SC TWICE A DAY July 31, 2018 6:28pm 3 ml insulin lispro 100 unt/ml pen injector (20 sources) Insulin Analog Start: 025 inject 15 [IU] by subcutaneous injection three times daily before mealtime insulin lispro (HUMALOG KWIKPEN INSULIN) 100 unit/mL Indications: Uncontrolled type 2 diabetes mellitus with hyperglycemia (HCC) Inject 15 Units subcutaneously three times a day before meals. Plus sliding scale (1 unit for every 50 pts >150 pts). 42 mL 3 10/28/2024 Active Start: 09-14-2024 End: 10-28-2024 insulin lispro (HUMALOG KWIK PEN INSULIN) 100 unit/mL Inject 12 Units subcutaneously three times a day before meals. 33 mL 3 09/14/2024 10/28/2024 Discontinued Start: 12-12-2021 Insulin Lispro (Humalog Pen) 100 unit/mL Insulin Pen Active 12 UNIT SC THREE TIMES A DAY December 11, 2021 11:00pm Start: 12-12-2021 Insulin Lispro (Humalog Pen) 100 unit/mL Insulin Pen Active SC December 11, 2021 11:00pm SSI Start: 11-15-2021 End: 09-07-2024 insulin lispro (HUMALOG U-10 0 INSULIN) 100 unit/mL crtg Take 12 units with meals. Insulin Sliding Scale: BG 70-150, give 0 units; BG 151-180, give 4 units; BG 181-220, give 6 units; BG 221-260, give 8 units; BG 261-300, give 10 units; BG 301-340, give 12 units; BG 341-380, give 14 units and call provider. 5 Each 11 08/09/2023 09/07/2024 Discontinued Start: 09-27-2021 insulin lispro (HumaLOG KwikPen Insulin) 100 unit/mL InPn Inject 0 (zero) Units to 40 (forty) Units under the skin 3 (three) times a day before meals as directed. (Inject 10 units plus sliding scale per instruction 3 times daily before meals). 36 mL 0 09/27/2021 Active Start: 09-25-2021 insulin lispro (AdmeLOG,HumaLOG) injection 8 Units Start: 09-25-2021 insulin lispro (AdmeLOG,HumaLOG) injection 22 Units Start: 09-22-2021 End: 09-27-2021 inject 1 dose by subcutaneous injection once daily 0-15 Units, Subcutaneous, At bedtime, First dose on Sat09/22/21 at 2100 For Nightly Insulin Dose Coverage, use: CORRECTIVE (Only) for BG greater than 300 Nightly CORRECTIVE Dose Method: Specific Corrective Dose Nightly Specific CORRECTIVE dose (units of insulin): 2 For Downtime Calculator, use: Insulin SC NIGHTtime Start: 09-22-2021 End: 09-27-2021 insulin lispro (AdmeLOG,Bella LOG) injection 0-30 Units Start: 02-05-2019 End: 10-04-2020 inject 20 [IU] by subcutaneous injection three times daily before mealtime insulin lispro (HUMALOG U-100 INSULIN) 100 unit/mL injection Inject 20 units subcutaneously 3 times daily before meals as directed. 30 mL 3 02/05/2019 10/04/2020 Discontinued (Adjust Sig - Block E-Cancel) Comment on above: Take 12 units with m eals. Insulin Sliding Scale: BG 70-150, give 0 units; BG 151-180, give 4 units; BG 181-220, give 6 units; BG 221-260, give 8 units; BG 261-300, give 10 units; BG 301-340, give 12 units; BG 341-380, give 14 units and call provider. Take 12 units with m eals. Insulin Sliding Scale: BG 70-150, give 0 units; BG 141-180, give 4 units; BG 181-220, give 6 units; BG 221-260, give 8 units; BG 261-300, give 10 units; BG 301-340, give 12 units; BG 341-380, give 14 units and call provider. isopropyl alcohol 0.7 ml/ml medicated pad (2 sources) Start: 2 alcohol swabs PadM Check your sugars up to 4 times a day . 100 each 11 09/26/2021 Active lurasidone hydrochloride 40 mg oral tablet (20 sources) Atypical Antipsychotic Start: 2 End: 3 take 1 tablet by mouth once daily Lurasidone (Latuda) 40 mg tablet Active 40 TABLET PO DAILY December 11, 2021 11:00pm Start: 09-23-2021 End: 10-27-2021 take 1 tablet by mouth once daily at dinner lurasidone (LATUDA) 40 mg Tab Take 1 (one) tablet (40 mg total) by mouth daily with dinner . 30 tablet 0 09/25/2021 10/27/2021 Active Comment on above: Take 1 tablet by jamee th daily with dinner. LYBALVI 10-10 mg tablet (5 sources) Start: 10-06-19 take 1 tablet by mouth once daily at bedtime LYBALVI 10-10 mg tablet Take 1 tablet by mouth daily at bedtime. 10/05/2024 Active metFORMIN hydrochloride 500 mg oral tablet (20 sources) Biguanide Start: 11-11-19 End: 09-02-19 25 take 2 tablets by mouth twice daily at mealtime metFORMIN (GLUCOPHAGE) 500 mg tablet Indications: Uncontrolled type 2 diabetes mellitus with hyperglycemia (HCC) Take 2 tablets by mouth two times a day with meals. 360 tablet 3 09/01/2024 Active Start: 06-26-2023 End: 11-09-2023 take 2 tablets by mouth twice daily at mealtime metFORMIN (GLUCOPHAGE) 500 mg tablet Indications: Uncontrolled type 2 diabetes mellitus with hyperglycemia (HCC) Take 2 tablets by mouth two times a day with meals. 360 tablet 3 06/26/2023 11/09/2023 Discontinued Start: 09-25-2021 End: 09-25-2021 take 1 tablet by mouth twice daily at mealtime metFORMIN (GLUCOPHAGE) 1000 MG tablet Take 1 (one) tablet (1,000 mg total) by mouth 2 (two) times a day with meals . 60 tablet 0 09/25/2021 Active Start: 09-22-2021 End: 09-27-2021 metFORMIN (GLUCOPHAGE) table t 1,000 mg Start: 08-29-2021 End: 04-25-2022 take 2 tablets by mouth twice daily at mealtime metFORMIN (GLUCOPHAGE) 500 mg tablet Indications: Uncontrolled type 2 diabetes mellitus with hyperglycemia (HCC) Take 2 tablets by mouth twice daily with meals. 360 tablet 3 04/25/2022 Active Start: 10-08-2019 End: 10-04-2020 take 2 tablets by mouth twice daily at mealtime metFORMIN (GLUCOPHAGE) 500 mg tablet Take 2 tablets by mouth twice daily with meals. 360 tablet 3 10/08/2019 10/04/2020 Discontinued Start: 03-11-2018 Metformin (Glu cophage Xr) 500 MG tablet extended release 24 hr Active 1000 MG PO TWICE A DAY March 10, 2018 11:00pm Comment on above: Take 2 tablets by mo ut twice daily with meals. Take 2 tablets by mo ut two times a day with meals. nabumetone 500 mg oral tablet (20 sources) Nonsteroidal Anti-inflammatory Drug Start: 4 take 1 tablet by mouth once daily at mealtime nabumetone (RELAFEN) 500 mg tablet Take 1 tablet by mouth once daily. TAKE WITH FOOD 60 tablet 1 12/04/2023 Active naproxen 500 mg oral tablet (13 sources) Nonsteroidal Anti-inflammatory Drug Start: 3 take 500 mg by mouth twice daily Naproxen Active 500 MG PO TWICE A DAY May 06, 2023 12:23am Start: 08-14-2022 take 1 tablet by jamee th twice daily as needed for pain naproxen (NAPROSYN) 500 mg tablet Indications: BERYL (obstructive sleep apnea) Take 1 tablet by mouth twice daily as needed for pain (for pain/inflammation or headache). Take with food. 30 tablet 0 08/14/2022 Active naproxen sodium (ALEVE ORAL) Take 2 capsules by mouth as needed. 0 Active Comment on above: Take 2 capsules by m [facility] as needed. Take 1 tablet by jamee th twice daily as needed for pain (for pain/inflammation or headache). Take with food. 24 hr nicotine 0.875 mg/hr transdermal system (4 sources) Cholinergic Nicotinic Agonist Start: End: apply 1 dose transdermal route once daily nicotine (NICODERM CQ) 21 mg/[address] 1 (one) patch on the skin daily . 28 patch 0 09/26/2021 10/26/2021 Active Start: 09-22-2021 End: 09-27-2021 nicotine (NICODERM CQ) 21 mg /24 hr 1 patch Start: 09-22-2021 End: 09-27-2021 take 2-4 mg oropharyngeal route every hour as needed nicotine polacrilex (NICORETTE) gum 2-4 mg OLANZapine 10 mg oral tablet (2 sources) Atypical Antipsychotic Start: 03-11-2018 End: 09-27-2021 take 10 mg by mouth at bedtime Olanzapine Active 10 MG PO AT BEDTIME March 11, 2018 4:18pm omeprazole 40 mg delayed release oral capsule (20 sources) Proton Pump Inhibitor Start: 09-07-2024 take 1 capsule by mouth twice daily omeprazole (PRILOSEC) 40 mg capsule Indications: Bile acid esophageal reflux Take 1 capsule by mouth two times a day. 180 capsule 3 09/07/2024 Active Start: 06-26-2023 End: 04-21-2024 take 1 capsule by mouth twice daily omeprazole (PRILOSEC) 40 mg capsule Take 1 capsule by mouth two times a day. 60 capsule 3 04/21/2024 Active Start: 11-14-2022 End: 02-01-2023 take 1 capsule by mouth twice daily omeprazole (PRILOSEC) 40 mg capsule Indications: Bile acid esophageal reflux Take 1 capsule by mouth twice daily. 60 capsule 3 02/01/2023 Active Start: 11-06-2022 End: 11-14-2022 take 1 capsule by mouth once daily omeprazole (PRILOSEC) 40 mg capsule Take 1 capsule by mouth once daily. 30 capsule 5 11/06/2022 11/14/2022 Discontinued Start: 11-06-2022 End: 11-06-2022 take 1 tablet by mouth once daily before breakfast Omeprazole Magnesium (PRILOSEC OTC) 20 mg tablet Take 1 tablet by mouth daily before breakfast. 1/2 hr before meal. 0 11/06/2022 11/06/2022 Discontinued Start: 12-01-2021 End: 11-06-2022 take 1 capsule by mouth once daily before breakfast omeprazole (PRILOSEC) 20 mg capsule Take 1 capsule by mouth daily before breakfast. 30 capsule 2 04/25/2022 11/06/2022 Discontinued Comment on above: Take 1 capsule by mo ut daily before breakfast. Take 1 capsule by mo uth once daily. Take 1 capsule by mo uth twice daily. Take 1 tablet by jamee th daily before breakfast. 1/2 hr before meal. Take 1 capsule by mo uth two times a day. ondansetron 4 mg disintegrating oral tablet (2 sources) Serotonin-3 Receptor Antagonist Start: 12-13-19 take 4 mg by mouth every eight hours as needed Ondansetron Active 4 MG PO EVERY 8 HOURS NEEDED December 11, 2021 11:00pm 12 hr orphenadrine citrate 100 mg extended release oral tablet (1 source) Muscle Relaxant Start: 02-12-20 End: 02-27-20 take 1 tablet by mouth twice daily orphenadrine ER (NORFLEX) 100 mg tablet Take 1 tablet by mouth two times a day for 15 days. 30 tablet 02/12/2024 02/27/2024 Active OXcarbazepine 300 mg oral tablet (20 sources) Anti-epileptic Agent Start: 11-16-19 End: 04-25-20 take 1 tablet by mouth twice daily Oxcarbazepine (Trileptal) 300 mg tablet Active 300 TABLET PO TWICE A DAY December 11, 2021 11:00pm Start: 09-24-2021 End: 10-27-2021 take 1 tablet by mouth twice daily OXcarbazepine (TRILEPTAL) 300 MG tablet Take 1 (one) tablet (300 mg total) by mouth 2 (two) times a day . 60 tablet 0 09/25/2021 10/27/2021 Active Start: 09-23-2021 End: 09-24-2021 OXcarbazepine (TRILEPTAL) ta blet 150 mg Comment on above: Take 1 tablet by jamee twice daily. perflutren lipid microspheres 1.3 mL in NaCl (PF) 0.9% 10 mL injection (DEFINITY) (20 sources) Start: 03-12-20 End: 06-10-20 perflutren lipid microspheres 1.3 mL in NaCl (PF) 0.9% 10 mL injection (DEFINITY) QUEtiapine 50 mg oral tablet (17 sources) Atypical Antipsychotic Start: 09-12-19 take 1 tablet by mouth once daily at bedtime QUEtiapine (SEROQUEL) 50 mg tablet Indications: Bipolar disorder, current episode mixed, moderate (HCC) Take 1 tablet by mouth daily at bedtime. 30 tablet 2 09/11/2024 Active Start: 09-07-2024 End: 09-11-2024 take 1 tablet by mouth once daily at bedtime QUEtiapine (SEROQUEL) 25 mg tablet Indications: Bipolar disorder, current episode mixed, moderate (HCC) , Primary insomnia Take 1 tablet by mouth daily at bedtime. 30 tablet 3 09/07/2024 09/11/2024 Discontinued Start: 09-01-2024 End: 09-07-2024 take 1 tablet by mouth once daily at bedtime QUEtiapine (SEROQUEL) 50 mg tablet Indications: Bipolar disorder, current episode mixed, moderate (HCC) Take 1 tablet by mouth daily at bedtime. 7 tablet 09/01/2024 09/07/2024 Discontinued rosuvastatin calcium 40 mg oral tablet (12 sources) HMG-CoA Reductase Inhibitor Start: 09-07-2024 take 1 tablet by mouth once daily rosuvastatin (CRESTOR) 40 mg tablet Indications: Uncontrolled type 2 diabetes mellitus with hyperglycemia (HCC) Take 1 tablet by mouth once daily. 90 tablet 3 09/07/2024 Active sertraline 100 mg oral tablet (20 sources) Serotonin Reuptake Inhibitor Start: 09-07-2024 take 1 tablet by mouth once daily sertraline (ZOLOFT) 100 mg tablet Indications: Bipolar disorder, current episode mixed, moderate (HCC) Take 1 tablet by mouth once daily. 90 tablet 2 09/07/2024 Active Start: 11-15-2021 End: 09-07-2024 take 1 tablet by mouth once daily sertraline (ZOLOFT) 50 mg tablet Indications: Bipolar disorder, current episode mixed, moderate (HCC) Take 1 tablet by mouth once daily. 7 tablet 09/01/2024 09/07/2024 Discontinued Comment on above: Take 1 tablet by jamee th once daily. sildenafil 50 mg oral tablet (20 sources) Phosphodiesterase 5 Inhibitor Start: 11-11-19 take 1-2 tablets by mouth once daily as needed sildenafil (VIAGRA) 50 mg tablet Indications: Erectile dysfunction due to diseases classified elsewhere Take 1-2 tablets by mouth once daily as needed. 30 tablet 1 11/11/2023 Active 125 ml sodium chloride 9 mg/ml prefilled syringe (20 sources) Start: 03-12-20 End: 06-10-20 sodium chloride 0.9 % (flush) 10 mL (BD POSIFLUSH) Start: 06-04-2022 End: 08-14-2022 sodium chloride (SALINE NASA L) 0.65 % nasal spray Use 2-3 Sprays in the nose three times daily. for nasal congestion 120 mL 1 06/04/2022 08/14/2022 Discontinued Comment on above: Use 2-3 Sprays in th e nose three times daily. for nasal congestion tiZANidine 2 mg oral tablet (20 sources) Central alpha-2 Adrenergic Agonist Start: take 1 tablet by mouth every six hours as needed tiZANidine (ZANAFLEX) 2 mg tablet Indications: Chronic bilateral low back pain with left-sided sciatica Take 1-2 tablets by mouth every 6 hours as needed. 60 tablet 1 11/11/2023 Active traZODone hydrochloride 100 mg oral tablet (20 sources) Serotonin Reuptake Inhibitor Start: End: 4 take 1 tablet by mouth once daily at bedtime traZODone (DESYREL) 100 mg tablet Indications: Bipolar affective disorder, current episode mixed, current episode severity unspecified (HCC) , Primary insomnia Take 1 tablet by mouth daily at bedtime. 30 tablet 1 04/08/2024 06/07/2024 Active Start: 09-23-2021 End: 10-27-2021 take 1 tablet by mouth once daily traZODone (DESYREL) 100 MG tablet Take 1 (one) tablet (100 mg total) by mouth nightly . 30 tablet 0 09/25/2021 10/27/2021 Active Start: 08-29-2021 End: 09-27-2021 take 1 tablet by mouth once daily at bedtime traZODone (DESYREL) 50 mg tablet Indications: Primary insomnia Take 1 tablet by mouth daily at bedtime. 90 tablet 3 08/29/2021 Active Comment on above: Take 1 tablet by jamee th daily at bedtime. vitamin b12 1 mg oral tablet (20 sources) Vitamin B12 Start: 07-17-2023 take 1 tablet by mouth once daily cyanocobalamin (VITAMIN B-12) 1,000 mcg tab Take 1 tablet by mouth once daily. 90 tablet 3 07/17/2023 Active Comment on above: Take 1 tablet by jamee th once daily. Completed/Discontinued Medications Medication Drug Class(es) Dates Sig (Normalized) Sig (Original) acetaminophen 325 mg oral tablet (1 source) Start: 09-22-2021 End: 09-27-2021 take 1 tablet by mouth every four hours as needed for pain acetaminophen (TYLENOL) tablet 650 mg acetaminophen 325 mg / oxyCODONE hydrochloride 5 mg oral tablet (3 sources) Opioid Agonist Start: 10-26-2018 End: 10-29-2018 take 1 tablet by mouth every six hours as needed Oxycodone-Acetamino phen Discontinued 1 TABLET PO EVERY 6 HOURS NEEDED 12 October 25, 2018 11:00pm October 28, 2018 11:06pm [id number] 200 actuat albuterol 0.09 mg/actuat metered dose inhaler (20 sources) beta2-Adrenergic Agonist Start: 06-04-2022 End: 11-23-2022 take 2 puff(s) by inhalation every four hours for wheezing albuterol HFA (PROVENTIL HFA, VENTOLIN HFA) 90 mcg/actuation inhaler Indications: Respiratory illness Two puffs every 4 hours as need for wheezing, SOB. 1 Each 1 06/04/2022 11/23/2022 Discontinued Start: 05-20-2018 End: 11-14-2020 take 2 puff(s) by inhalation every four hours for wheezing albuterol HFA (PROVENTIL HFA, VENTOLIN HFA) 90 mcg/actuation inhaler Indications: Respiratory illness Two puffs every 4 hours as need for wheezing, SOB. 1 g 05/20/2018 11/14/2020 Discontinued Comment on above: Two puffs every 4 ho urs as need for wheezing, SOB. aluminum hydroxide 40 mg/ml / magnesium hydroxide 40 mg/ml / simethicone 4 mg/ml oral suspension (1 source) Start: End: take 30 mL by mouth every four hours as needed aluminum-magnesium hydroxide-simethicon e (MAALOX PLUS) 200-200-20 mg/5 mL suspension 30 mL atorvastatin 20 mg oral tablet (20 sources) HMG-CoA Reductase Inhibitor Start: End: take 1 tablet by mouth once daily at bedtime for hyperlipidemia atorvastatin (LIPITOR) 20 mg tablet Indications: Uncontrolled type 2 diabetes mellitus with hyperglycemia (HCC) Take 1 tablet by mouth daily at bedtime. For cholesterol. 30 tablet 11 07/15/2024 09/07/2024 Discontinued Start: 10-23-2018 End: 02-12-2023 take 20 mg by mouth once daily Atorvastatin Active 20 MG PO DAILY October 25, 2018 11:00pm Comment on above: Take 1 tablet by jamee th daily at bedtime. For cholesterol. benzonatate 100 mg oral capsule (3 sources) Non-narcotic Antitussive Start: 2 End: 3 take 100-200 mg by mouth every eight hours as needed for cough and cough benzonatate (TESSALON PERLES) 100 mg capsule Indications: Acute cough Take 1-2 capsules by mouth three times daily as needed for cough. 60 capsule 1 06/04/2022 08/14/2022 Discontinued Comment on above: Take 1-2 capsules by mouth three times daily as needed for cough. Blood Pressure Monitor (BLOOD PRESSURE KIT) (8 sources) Start: 2 End: 3 Blood Pressure Monitor (BLOOD PRESSURE KIT) Indications: Essential hypertension , Labile blood pressure Dx: R09.89 labile blood pressure, I10 hypertension 1 Each 0 04/23/2022 08/14/2022 Discontinued Start: 04-23-2022 Blood Pressure Monitor (BLOOD PRESSURE KIT) Indications: Essential hypertension , Labile blood pressure Dx: R09.89 labile blood pressure, I10 hypertension 1 Each 0 04/23/2022 Active Start: 04-23-2022 End: 04-23-2022 Blood Pressure Monitor (BLOO D PRESSURE KIT) Indications: Essential hypertension , Labile blood pressure Dx: R09.89 labile blood pressure, I10 hypertension 1 Each 0 04/23/2022 04/23/2022 Discontinued Comment on above: Dx: R09.89 labile bl ood pressure, I10 hypertension Blood-Glucose Meter monitoring kit (20 sources) Start: 09-11-2017 End: 11-23-2022 Blood-Glucose Meter monitoring kit Glucose Meter of Choice (whatever is covered by insurance) - Kit - Dx: Type 2 DM - Uncontrolled E11.65 1 Each 09/11/2017 11/23/2022 Discontinued Start: 09-11-2017 End: 11-23-2022 Blood-Glucose Meter monitori ng kit Glucose Meter of Choice (whatever is covered by insurance) - Kit - Dx: Type 2 DM - Uncontrolled E11.65 1 Each 0 09/11/2017 11/23/2022 Discontinued Start: 09-11-2017 Blood-Glucose Meter monitoring kit Glucose Meter of Choice (whatever is covered by insurance) - Kit - Dx: Type 2 DM - Uncontrolled E11.65 1 Each 0 09/11/2017 Active Comment on above: Glucose Meter of Cho ice (whatever is covered by insurance) - Kit - Dx: Type 2 DM - Uncontrolled E11.65 24 hr buPROPion hydrochloride 150 mg extended release oral tablet (20 sources) Aminoketone Start: 08-01-19 23 End: 09-08-19 25 take 1 tablet by mouth once daily buPROPion XL (WELLBUTRIN XL) 150 mg 24 hr tablet Take 1 tablet by mouth once daily. 90 tablet 3 11/11/2023 09/07/2024 Discontinued Start: 08-01-2022 buPROPion XL ( WELLBUTRIN XL) 150 mg 24 hr tablet Comment on above: Take 150 mg by mouth once daily. Prescribed by psychiatrist calcium carb/magnesium hydrox (ROLAIDS ORAL) (1 source) End: 2020 calcium carb/magnesium hydrox (ROLAIDS ORAL) Take 1 tablet by mouth as needed. 11/14/2020 Discontinued citalopram 40 mg oral tablet (7 sources) Serotonin Reuptake Inhibitor Start: 2017 End: 2021 take 1 tablet by mouth once daily in the morning citalopram (CELEXA) 40 mg tablet Indications: Anxiety and depression Take 1 tablet by mouth every morning. 30 tablet 11 07/20/2019 08/03/2020 Discontinued Comment on above: Take 1 tablet by jamee th every morning. colesevelam hydrochloride 625 mg oral tablet (20 sources) Bile Acid Sequestrant Start: 2022 take 2 tablets by mouth twice daily at mealtime colesevelam (WELCHOL) 625 mg tablet Indications: Bile acid esophageal reflux , Bile salt-induced diarrhea Take 2 tablets by mouth twice daily with meals. 120 tablet 5 11/06/2022 Active Comment on above: Take 2 tablets by mo ut twice daily with meals. diphenhydrAMINE (1 source) Histamine-1 Receptor Antagonist Start: 2021 End: 2021 inject 50 mg by intramuscular injection every twenty-four hours as needed diphenhydrAMINE (BENADRYL) injection 50 mg 0.5 ml dulaglutide 3 mg/ml auto-injector (20 sources) GLP-1 Receptor Agonist Start: 2022 inject 1.5 mg by subcutaneous injection every week dulaglutide (TRULICITY) 1.5 mg/0.5 mL pen injector Indications: Uncontrolled type 2 diabetes mellitus with hyperglycemia (HCC) Inject 1.5 mg subcutaneously one time a week. 2 mL 1 08/01/2022 Active Start: 11-15-2021 End: 08-01-2022 Dulaglutide (Trulicity) 0.75 mg/0.5 mL Pen Injector Active 0.75 MG SC WE December 11, 2021 11:00pm Start: 09-26-2021 dulaglutide (T rulicity) 0.75 mg/0.5 mL Pen Inject 0.5 mL (0.75 mg total) under the skin every 7 days . 2 mL 0 09/26/2021 Active Start: 09-12-2021 inject 0.75 mg by barron bcutaneous injection every week dulaglutide (TRULICITY) 0.75 mg/0.5 mL pen injector Inject 0.75 mg subcutaneously one time a week. 2 mL 2 09/12/2021 Active Start: 09-12-2021 End: 09-26-2021 dulaglutide (Trulicity) 0.75 mg/0.5 mL Pen Inject 0.75 mg under the skin over 168 hr . 0 09/12/2021 09/26/2021 Discontinued (Reorder) Start: 08-14-2018 End: 11-14-2020 inject 0.75 mg by subcutaneous injection every week dulaglutide (TRULICITY) 0.75 mg / 0.5 ml subcutaneous pen injector Inject 0.75 mg subcutaneously once each week. 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 Inject 1.5 mg subcut aneously one time a week. dulaglutide (TRULICITY) 3 mg/0.5 mL pen injector (20 sources) Start: inject 3 mg by subcutaneous injection every week dulaglutide (TRULICITY) 3 mg/0.5 mL pen injector Inject 3 mg subcutaneously one time a week. 6 mL 3 02/12/2023 Active Start: 09-20-2022 End: 02-12-2023 inject 3 mg by subcutaneous injection every week dulaglutide (TRULICITY) 3 mg/0.5 mL pen injector Inject 3 mg subcutaneously one time a week. 6 mL 3 09/20/2022 02/12/2023 Discontinued Start: 09-20-2022 inject 3 mg by subcu taneous injection every week dulaglutide (TRULICITY) 3 mg/0.5 mL pen injector Inject 3 mg subcutaneously one time a week. 6 mL 3 09/20/2022 Active Comment on above: Inject 3 mg subcutan eously one time a week. famotidine 20 mg oral tablet (16 sources) Histamine-2 Receptor Antagonist Start: 08-14-19 End: 11-07-19 23 take 1 tablet by mouth at bedtime as needed famotidine (PEPCID) 20 mg tablet Indications: BERYL (obstructive sleep apnea) , Gastroesophageal reflux disease with esophagitis, unspecified whether hemorrhage Take 1 tablet by mouth at bedtime as needed. 30 tablet 1 08/14/2022 11/06/2022 Discontinued (Lack of Efficacy) Start: 01-15-2019 End: 10-04-2020 take 1 tablet by mouth every twenty-four hours as needed famotidine (PEPCID) 20 mg tablet Take 1 tablet by mouth at bedtime as needed. 30 tablet 2 01/15/2019 10/04/2020 Discontinued Comment on above: Take 1 tablet by jamee th at bedtime as needed. flash glucose sensor (FREESTYLE JOSE 2 SENSOR) kit (16 sources) Start: 2021 flash glucose sensor (FREESTYLE JOSE 2 SENSOR) kit Apply new sensor every fourteen (14) days to upper arm. 6 Each 4 02/06/2022 Active Comment on above: Apply new sensor mary ellen ry fourteen (14) days to upper arm. hydrOXYzine hydrochloride 50 mg oral tablet (1 source) Antihistamine Start: 2021 End: 2021 take 1 tablet by mouth every six hours as needed for anxiety hydrOXYzine (ATARAX) tablet 50 mg insulin isophane, human 100 unt/ml injectable suspension (1 source) Start: 2019 End: 2020 inject 26 [IU] by subcutaneous injection before breakfast insulin NPH injection (HumuLIN N,NovoLIN N) Indications: Uncontrolled type 2 diabetes mellitus with hyperglycemia (HCC) Inject 26 Units subcutaneously before breakfast and 26 Units before dinner 10 mL 3 03/09/2020 10/04/2020 Discontinued 1 ml ketorolac tromethamine 30 mg/ml injection (2 sources) Nonsteroidal Anti-inflammatory Drug, Cyclooxygenase Inhibitor Start: 2023 End: 2023 keTORolac 30 mg injection (Toradol) Start: 02-12-2024 End: 02-12-2024 30 mg, INTRAMUSCULAR, ONCE, 1 dose, On Sat02/12/24 at 1530, Ketorolac (Toradol) is indicated for the short-term (up to 5 days) management of moderately severe acute pain. Continuation of ketorolac (Toradol) beyond 5 days increases the risk of developing serious adverse events. Please verify the duration of therapy for ketorolac (Toradol), If ordered PRN for pain, patient/guardian may elect to receive this medication for higher pain levels INSTEAD of the opioid, if preferred: Yes lidocaine 0.04 mg/mg medicated patch (1 source) Antiarrhythmic, Amide Local Anesthetic Start: 09-23-2021 End: 09-27-2021 lidocaine patch 1 patch lisinopril 5 mg oral tablet (20 sources) Angiotensin Converting Enzyme Inhibitor Start: 06-26-2023 End: 03-25-2025 take 1 tablet by mouth once daily lisinopril (ZESTRIL) 5 mg tablet Take 1 tablet by mouth once daily. 90 tablet 3 03/30/2024 09/07/2024 Discontinued Start: 10-02-2022 End: 11-01-2022 take 1 tablet by mouth once daily lisinopril (ZESTRIL) 5 mg tablet Take 1 tablet by mouth once daily. 90 tablet 3 10/02/2022 Active Start: 08-29-2021 End: 10-02-2022 take 1 tablet by mouth once daily, then take 1 tablet by mouth once daily lisinopril (ZESTRIL, PRINIVIL) 20 mg tablet Indications: Uncontrolled type 2 diabetes mellitus with hyperglycemia (HCC) , Essential hypertension Take 1 tablet by mouth once daily. Dose change- take one daily 90 tablet 3 04/25/2022 10/02/2022 Discontinued Start: 05-20-2018 End: 10-27-2021 take 1 tablet by mouth once daily lisinopril (ZESTRIL, PRINIVIL) 10 mg tablet Indications: Essential hypertension Take 1 tablet by mouth once daily. 90 tablet 3 10/08/2019 10/04/2020 Discontinued Start: 05-20-2018 take 20 mg by mouth once daily Lisinopril Active 20 MG PO DAILY May 20, 2018 12:00am Comment on above: Take 1 tablet by jamee th once daily. Dose change- take one daily Take 1 tablet by jamee th once daily. magnesium hydroxide 80 mg/ml oral suspension (1 source) Start: End: magnesium hydroxide (MOM) 400 mg/5 mL suspension 2,400 mg meloxicam 15 mg oral tablet (1 source) Nonsteroidal Anti-inflammatory Drug Start: End: take 1 tablet by mouth once daily for pain meloxicam (MOBIC) 15 mg tablet Take 1 tablet by mouth once daily. for pain. Take with food. 30 tablet 2 08/01/2018 11/14/2020 Discontinued methocarbamol 500 mg oral tablet (1 source) Muscle Relaxant Start: End: take 1 tablet by mouth four times daily methocarbamol (ROBAXIN) 500 mg tablet Take 1 tablet by mouth four times daily. 40 tablet 1 01/15/2019 11/14/2020 Discontinued metoclopramide 5 mg oral tablet (20 sources) Dopamine-2 Receptor Antagonist Start: take 1 tablet by mouth three times daily 30 minutes before mealtime metoclopramide HCl (REGLAN) 5 mg tablet Take 1 tablet by mouth three times daily. 30 min before meals 90 tablet 11 01/03/2023 Active Comment on above: Take 1 tablet by jamee th three times daily. 30 min before meals 24 hr metoprolol succinate 50 mg extended release oral tablet (20 sources) beta-Adrenergic Lyndon Start: End: take 1 tablet by mouth once daily metoprolol succinate ER (TOPROL XL) 50 mg 24 hr tablet Take 1 tablet by mouth once daily. 30 tablet 2 08/12/2024 09/07/2024 Discontinued Start: 04-25-2022 End: 02-12-2023 take 1 tablet by mouth once daily metoprolol succinate ER (TOPROL XL) 50 mg 24 hr tablet Take 1 tablet by mouth once daily. 30 tablet 11 02/12/2023 Active End: 04-25-2022 take 1 tablet by mouth once daily metoprolol tartrate, short acting, (LOPRESSOR) 50 mg tablet Take 50 mg by mouth once daily. 0 04/25/2022 Discontinued (Erroneous entry) Comment on above: Take 1 tablet by jamee th once daily. Take 50 mg by mouth once daily. mupirocin 0.02 mg/mg topical ointment (7 sources) RNA Synthetase Inhibitor Antibacterial Start: End: mupirocin (BACTROBAN) 2 % ointment Apply to affected area three times a day. 30 g 0 07/02/2023 11/11/2023 Discontinued Comment on above: Apply to affected ar ea three times a day. nortriptyline 25 mg oral capsule (1 source) Tricyclic Antidepressant Start: 020 End: take 1-3 capsules by mouth once daily at bedtime nortriptyline (PAMELOR) 25 mg capsule Indications: Primary insomnia Take 1-3 capsules by mouth daily at bedtime. 90 capsule 1 08/03/2019 11/14/2020 Discontinued phenylephrine hydrochloride 25 mg/ml ophthalmic solution (1 source) alpha-1 Adrenergic Agonist Start: 023 End: PHENYLephrine 2.5 % 1 Drop (AK-DILATE, KANG-SYNEPHRINE) pioglitazone 30 mg oral tablet (20 sources) Peroxisome Proliferator Receptor alpha Agonist, Peroxisome Proliferator Receptor gamma Agonist, Thiazolidinedione Start: End: take 1 tablet by mouth once daily pioglitazone (ACTOS) 30 mg tablet Take 1 tablet by mouth once daily. 90 tablet 08/12/2024 09/07/2024 Discontinued Start: 06-28-2023 End: 11-11-2023 take 1 tablet by mouth once daily pioglitazone (ACTOS) 15 mg tablet Take 1 tablet by mouth once daily. 30 tablet 2 06/28/2023 11/11/2023 Discontinued Comment on above: Take 1 tablet by jamee once daily. prazosin 2 mg oral capsule (1 source) alpha-Adrenergic Lyndon Start: End: take 1 capsule by mouth once daily at bedtime prazosin (MINIPRESS) 2 mg cap Indications: Essential hypertension Take 1 capsule by mouth daily at bedtime. 90 capsule 06/18/2018 11/14/2020 Discontinued predniSONE 20 mg oral tablet (3 sources) Start: End: take 40 mg by mouth once daily Prednisone Discontinued 40 MG PO DAILY 4 May 15, 2013 12:00am June 14, 2013 7:21pm promethazine hydrochloride 25 mg oral tablet (20 sources) Phenothiazine Start: take 1 tablet by mouth every six hours as needed promethazine (PHENERGAN) 25 mg tablet Take 1 tablet by mouth every 6 hours as needed for nausea/vomiting. 24 tablet 0 11/06/2022 Active Comment on above: Take 1 tablet by jamee every 6 hours as needed for nausea/vomiting. proparacaine hydrochloride 5 mg/ml ophthalmic solution (1 source) Local Anesthetic Start: End: proparacaine 0.5 % 1 Drop (ALCAINE) semaglutide (OZEMPIC) 0.25 mg or 0.5 mg (2 mg/3 mL) pen (20 sources) Start: End: inject 0.5 mg by subcutaneous injection every week semaglutide (OZEMPIC) 0.25 mg or 0.5 mg (2 mg/3 mL) pen Inject 0.5 mg subcutaneously one time a week. 9 mL 1 10/04/2023 11/11/2023 Discontinued Start: 10-04-2023 inject 0.5 mg by sub cutaneous injection every week semaglutide (OZEMPIC) 0.25 mg or 0.5 mg (2 mg/3 mL) pen Inject 0.5 mg subcutaneously one time a week. 9 mL 1 10/04/2023 Active Start: 09-20-2022 End: 02-12-2023 inject 0.5 mg by subcutaneous injection every week semaglutide (OZEMPIC) 0.25 mg or 0.5 mg (2 mg/3 mL) pen Inject 0.5 mg subcutaneously one time a week. ON HOLD as of 09/20/22 while still taking Trulicity 9 mL 3 09/20/2022 02/12/2023 Discontinued Start: 09-20-2022 inject 0.5 mg by sub cutaneous injection every week semaglutide (OZEMPIC) 0.25 mg or 0.5 mg (2 mg/3 mL) pen Inject 0.5 mg subcutaneously one time a week. ON HOLD as of 09/20/22 while still taking Trulicity 9 mL 3 09/20/2022 Active Start: 09-14-2022 End: 09-20-2022 inject 0.5 mg by subcutaneous injection every week semaglutide (OZEMPIC) 0.25 mg or 0.5 mg (2 mg/3 mL) pen Inject 0.5 mg subcutaneously one time a week. 9 mL 3 09/14/2022 09/20/2022 Discontinued (Adjust Sig - Block E-Cancel) Start: 09-14-2022 inject 0.5 mg by sub cutaneous injection every week semaglutide (OZEMPIC) 0.25 mg or 0.5 mg (2 mg/3 mL) pen Inject 0.5 mg subcutaneously one time a week. 9 mL 3 09/14/2022 Active Comment on above: Inject 0.5 mg subcut aneously one time a week. Inject 0.5 mg subcut aneously one time a week. ON HOLD as of 09/20/22 while still taking Trulicity terazosin 5 mg oral capsule (20 sources) alpha-Adrenergic Lyndon Start: End: take 1 capsule by mouth once daily at bedtime terazosin (HYTRIN) 5 mg capsule Take 1 capsule by mouth daily at bedtime. 30 capsule 2 08/12/2024 09/07/2024 Discontinued Start: 11-14-2022 End: 02-12-2023 take 1 capsule by mouth once daily at bedtime terazosin (HYTRIN) 5 mg capsule Indications: Kidney stones Take 1 capsule by mouth daily at bedtime. 30 capsule 11 02/12/2023 Active Comment on above: Take 1 capsule by mo ut daily at bedtime. topiramate 25 mg oral tablet (20 sources) Start: 10-24-2022 take 2 tablets by mouth once daily at bedtime topiramate (TOPAMAX) 25 mg tablet Take 50 mg by mouth daily at bedtime. 0 10/24/2022 Active Start: 03-25-2020 End: 08-29-2021 take 1 tablet by mouth once daily at bedtime topiramate (TOPAMAX) 25 mg tablet Take 1 tablet by mouth daily at bedtime. 30 tablet 5 03/25/2020 08/29/2021 Discontinued Comment on above: Take 50 mg by mouth daily at bedtime. tropicamide 10 mg/ml ophthalmic solution (1 source) Anticholinergic Start: 08-24-19 End: 08-24-19 tropicamide 1 % 1 Drop (MYDRIACYL) urea 400 mg/ml topical cream (4 sources) Start: 05-09-20 End: 05-09-20 urea (CARMOL) 40 % Apply to affected area twice daily. 198 g 11 05/09/2022 08/14/2022 Discontinued Comment on above: Apply to affected ar ea twice daily. 24 hr divalproex sodium 500 mg extended release oral tablet (10 sources) Mood Stabilizer, Anti-epileptic Agent Start: 08-30-19 End: 11-17-19 take 4 tablets by mouth once daily at bedtime divalproex ER (DEPAKOTE ER) 500 mg 24 hr tablet Indications: Anxiety and depression Take 4 tablets by mouth daily at bedtime. 120 tablet 5 08/29/2021 11/16/2021 Discontinued (Discontinued by another Health Care Provider) Start: 03-25-2020 End: 10-04-2020 take 4 tablets by mouth once daily at bedtime divalproex ER (DEPAKOTE ER) 500 mg 24 hr tablet Indications: Anxiety and depression Take 4 tablets by mouth daily at bedtime. 120 tablet 5 03/25/2020 10/04/2020 Discontinued Start: 05-20-2018 End: 09-22-2021 take 2000 mg by mouth at bedtime Divalproex Active 2000 MG PO AT BEDTIME May 20, 2018 9:55pm Comment on above: Take 4 tablets by mo uth daily at bedtime. venlafaxine 25 mg oral tablet (3 sources) Serotonin and Norepinephrine Reuptake Inhibitor Start: End: take 25 mg by mouth three times daily Venlafaxine Discontinued 25 MG PO THREE TIMES A DAY April 08, 2013 11:00pm June 14, 2013 7:21pm ziprasidone (GEODON) injection 20 mg (1 source) Start: End: inject 20 mg by intramuscular injection every four hours as needed ziprasidone (GEODON) injection 20 mg Problems Active Problems Problem Classification Problem Date Documented Da te Episodic/Chronic Abdominal pain (3 sources) Left upper quadrant pain; Translations: [Left upper quadrant pain] 02-20-2016 Episodic Administrative/social admission (1 source) Residence and accommodation circumstances - finding; Translations: [Housing instability, housed, homelessness in past 12 months] 09-07-2024 Episodic Anxiety disorders (20 sources) Mixed anxiety and depressive disorder; Translations: [Anxiety disorder, unspecified] Onset: 06-10-2012 01-16-2018 Chronic Blindness and vision defects (3 sources) Bilateral myopia of eyes; Translations: [Myopia, bilateral] Episodic Calculus of urinary tract (5 sources) Kidney stone; Translations: [Calculus of kidney] Episodic Conditions associated with dizziness or vertigo (1 source) Dizziness; Translations: [Dizziness and giddiness] 08-24-2024 Episodic Diabetes mellitus with complications (20 sources) Type II diabetes mellitus uncontrolled; Translations: [Type 2 diabetes mellitus with hyperglycemia] Onset: 08-30-2008 11-03-2019 Chronic Diabetes mellitus without complication (4 sources) Type 2 diabetes mellitus; Translations: [Type 2 diabetes mellitus without complications] Chronic Disorders of lipid metabolism (20 sources) Mixed hyperlipidemia; Translations: [Mixed hyperlipidemia] Onset: 02-12-2013 03-12-2017 Chronic Disorders usually diagnosed in infancy, childhood, or adolescence (20 sources) Attention deficit hyperactivity disorder, predominantly inattentive type; Translations: [Other specified behavioral and emotional disorders with onset usually occurring in childhood and adolescence] 10-11-2019 Chronic E Codes: Place of occurrence (1 source) Effect of exposure to external cause; Translations: [Other farm location as the place of occurrence of the external cause] 05-06-2023 Episodic Esophageal disorders (20 sources) Gastro-esophageal reflux disease with esophagitis; Translations: [Gastroesophageal reflux disease with esophagitis] Onset: 02-06-2022 08-11-2018 Chronic Essential hypertension (20 sources) Essential hypertension; Translations: [Essential (primary) hypertension] Onset: 08-30-2008 02-23-2017 Chronic Fracture of lower limb (2 sources) Closed fracture of phalanx of foot; Translations: [Displaced unspecified fracture of left lesser toe(s), initial encounter for closed fracture] 05-06-2023 Episodic Fracture of lower limb (1 source) Fracture of ankle; Translations: [Other fracture of right lower leg, initial encounter for closed fracture] 05-06-2023 Episodic Genitourinary symptoms and ill-defined conditions (1 source) Blood in urine; Translations: [Hematuria, unspecified] 11-21-2022 Episodic Headache; including migraine (1 source) Headache; Translations: [Chronic intractable headache, unspecified headache type] 11-11-2023 Episodic Headache; including migraine (1 source) Headache; including migraine; Translations: [Chronic intractable headache, unspecified headache type] Onset: 09-01-2024 Immunizations and screening for infectious disease (7 sources) Patient encounter status; Translations: [Encounter for immunization] Episodic Miscellaneous mental health disorders (4 sources) Primary insomnia; Translations: [Primary insomnia] Chronic Mood disorders (20 sources) Bipolar disorder; Translations: [Bipolar disorder, unspecified] Onset: 09-22-2021 08-11-2018 Chronic Nutritional deficiencies (3 sources) Vitamin D deficiency; Translations: [Vitamin D deficiency, unspecified] Onset: 08-24-2024 01-05-2024 Chronic Open wounds of head; neck; and trunk (3 sources) Laceration of forehead; Translations: [Laceration without foreign body of other part of head, initial encounter] 10-29-2014 Episodic Other circulatory disease (1 source) Labile blood pressure; Translations: [Other specified symptoms and signs involving the circulatory and respiratory systems] Episodic Other ear and sense organ disorders (20 sources) Sensorineural hearing loss, bilateral; Translations: [Sensorineural hearing loss, bilateral] Onset: 08-26-2023 08-22-2023 Chronic Other gastrointestinal disorders (1 source) Non-infective diarrhea; Translations: [Other intestinal malabsorption] Chronic Other gastrointestinal disorders (1 source) Abdominal bloating; Translations: [Abdominal distension (gaseous)] Episodic Other gastrointestinal disorders (4 sources) Esophageal dysphagia; Translations: [Other dysphagia] Episodic Other infections; including parasitic (1 source) History of Helicobacter pylori infection; Translations: [Personal history of other infectious and parasitic diseases] Episodic Other injuries and conditions due to external causes (1 source) Abrasion and/or friction burn of multiple sites; Translations: [Unspecified multiple injuries, initial encounter] 05-06-2023 Episodic Other injuries and conditions due to external causes (1 source) Injury of left ankle; Translations: [Unspecified injury of left ankle, initial encounter] 05-18-2020 Episodic Other lower respiratory disease (1 source) Snoring; Translations: [Snoring] Episodic Other male genital disorders (1 source) Secondary erectile dysfunction; Translations: [Erectile dysfunction due to diseases classified elsewhere] 11-12-2023 Chronic Other nervous system disorders (3 sources) Other chronic pain; Translations: [Chronic bilateral low back pain without sciatica] Onset: 02-06-2022 Chronic Other nervous system disorders (1 source) Abnormal movement; Translations: [Unspecified abnormal involuntary movements] Episodic Other non-traumatic joint disorders (1 source) Arthralgia of the ankle and/or foot; Translations: [Pain in left ankle and joints of left foot] 05-18-2020 Episodic Other nutritional; endocrine; and metabolic disorders (20 sources) Obese class II; Translations: [Obesity, unspecified] Onset: 09-01-2018 09-01-2018 Chronic Other nutritional; endocrine; and metabolic disorders (3 sources) Morbid obesity; Translations: [Morbid (severe) obesity due to excess calories] 10-26-2018 Chronic Other nutritional; endocrine; and metabolic disorders (1 source) Severe obesity; Translations: [Morbid (severe) obesity due to excess calories] Chronic Other nutritional; endocrine; and metabolic disorders (1 source) Body mass index 30+ - obesity; Translations: [Body mass index (BMI) 34.0-34.9, adult] Chronic Other nutritional; endocrine; and metabolic disorders (20 sources) Obese class I; Translations: [Obesity, unspecified] Onset: 09-01-2018 Chronic Other skin disorders (1 source) Foot callus; Translations: [Corns and callosities] Episodic Other skin disorders (2 sources) Mass of skin of back; Translations: [Localized swelling, mass and lump, trunk] 12-11-2023 Episodic Residual codes; unclassified (20 sources) Obstructive sleep apnea syndrome; Translations: [Obstructive sleep apnea (adult) (pediatric)] Onset: 10-25-2008 01-04-2020 Chronic Residual codes; unclassified (1 source) Daytime somnolence; Translations: [Other hypersomnia] Chronic Residual codes; unclassified (1 source) Restlessness and agitation; Translations: [Restlessness and agitation] 08-24-2024 Chronic Residual codes; unclassified (20 sources) Tobacco use and exposure - finding; Translations: [Tobacco use] 08-11-2018 Episodic Residual codes; unclassified (1 source) Noncompliance with medication regimen; Translations: [Noncompliance with medication regimen] 08-24-2024 Episodic Spondylosis; intervertebral disc disorders; other back problems (20 sources) Degeneration of thoracolumbar intervertebral disc; Translations: [Other intervertebral disc degeneration, thoracolumbar region] Onset: 01-10-2024 01-05-2024 Chronic Substance-related disorders (20 sources) Substance abuse; Translations: [Other psychoactive substance abuse, uncomplicated] Onset: 09-22-2021 08-11-2018 Chronic Unclassified (2 sources) Chronic bilateral low back pain without sciatica; Translations: [Chronic bilateral low back pain without sciatica] Onset: 02-06-2022 Unclassified (1 source) Cough, unspecified; Translations: [Cough, unspecified] Onset: 06-04-2024 Past or Other Problems Problem Classification Problem Date Documented Da te Episodic/Chronic Acquired foot deformities (20 sources) Acquired cavus deformity of foot; Translations: [Other acquired deformities of unspecified foot] Onset: 12-05-2009 12-05-2009 Episodic Chronic obstructive pulmonary disease and bronchiectasis (20 sources) Bronchitis; Translations: [Bronchitis, not specified as acute or chronic] Onset: 02-06-2022 02-06-2022 Episodic Inflammatory conditions of male genital organs (20 sources) Orchitis and epididymitis; Translations: [Epididymo-orchitis] Onset: 02-06-2022 02-06-2022 Episodic Nausea and vomiting (20 sources) Nausea and vomiting; Translations: [Nausea with vomiting, unspecified] Onset: 11-29-2022 Episodic Noninfectious gastroenteritis (20 sources) Non-specific colitis; Translations: [Noninfective gastroenteritis and colitis, unspecified] Onset: 02-06-2022 Resolved: 06-26-2023 02-06-2022 Episodic Nonspecific chest pain (20 sources) Precordial pain; Translations: [Precordial pain] Onset: 03-12-2023 03-12-2023 Episodic Open wounds of extremities (20 sources) Laceration of lower limb; Translations: [Laceration without foreign body, right lower leg, initial encounter] Onset: 02-06-2022 02-06-2022 Episodic Other aftercare (1 source) Other hand mixer (current) drug therapy; Translations: [Medication management] Onset: 09-07-2024 Episodic Other gastrointestinal disorders (20 sources) Altered bowel function; Translations: [Change in bowel habit] Onset: 11-29-2022 Episodic Other gastrointestinal disorders (20 sources) Burping; Translations: [Eructation] Onset: 11-29-2022 Episodic Other injuries and conditions due to external causes (20 sources) Injury of head; Translations: [Unspecified injury of head, initial encounter] Onset: 02-06-2022 02-06-2022 Episodic Other male genital disorders (20 sources) Pain of right testicle; Translations: [Right testicular pain] Onset: 07-16-2018 07-16-2018 Episodic Other nutritional; endocrine; and metabolic disorders (20 sources) Obesity; Translations: [Obesity, unspecified] Onset: 04-06-2005 Resolved: 12-09-2022 08-11-2018 Chronic Other upper respiratory infections (20 sources) Acute laryngitis; Translations: [Acute laryngitis] Onset: 02-06-2022 Resolved: 06-26-2023 02-06-2022 Episodic Pancreatic disorders (not diabetes) (20 sources) Gallstone pancreatitis; Translations: [Biliary acute pancreatitis without necrosis or infection] Onset: 02-06-2022 02-06-2022 Episodic Residual codes; unclassified (20 sources) Early satiety; Translations: [Early satiety] Onset: 11-29-2022 Episodic Spondylosis; intervertebral disc disorders; other back problems (20 sources) Neck pain; Translations: [Cervicalgia] Onset: 04-03-2012 04-03-2012 Episodic Sprains and strains (20 sources) Strain of neck muscle; Translations: [Strain of muscle, fascia and tendon at neck level, initial encounter] Onset: 02-06-2022 02-06-2022 Episodic Superficial injury; contusion (20 sources) Contusion of back; Translations: [Contusion of unspecified back wall of thorax, initial encounter] Onset: 02-06-2022 02-06-2022 Episodic Viral infection (20 sources) Viral disease; Translations: [Viral infection, unspecified] Onset: 02-06-2022 02-06-2022 Episodic Results Test Name Value Interpretation Reference Range Facility [facility] 04-26-2025 [facility] Telephone (PHMEWO) -------- DENVER HOLLINGSWORTH ([id number]) 1980 M Date Time Provider Department 04/26/25 KYE MEADE [facility] During your visit today, we recorded the following information about you: Kye Meade [facility] 04/26/2025 1:44 PM Signed Unable to reach patient for scheduled phone appt today. Called x 3, unable to LMOM. Primary Care Pharmacy Rescheduling Outreach Call center, please contact patient and reschedule telephone visit for Diabetes management within ~4 week(s). (Visit length: 30 minutes) Thank you, Kye Meade [facility] 04/26/2025 1:43 PM Kalina Bartlett PSS 04/26/2025 1:50 PM Signed Telephoned the patient regarding missed appt. Not able to contact the patient or leave a message. Both cell/home numbers voicemail have not been set-up. Kalina Bartlett PSS 04/27/2025 10:12 AM Signed Telephoned the patient regarding missed appt. Not able to contact the patient or leave a message. Both cell/home numbers voicemail have not been set-up. Kalina Bartlett PSS 05/04/2025 1:14 PM Signed Final attempt/No MyChart/DC Allergies As of Date: 04/26/2025 Noted Allergy Reaction HYDROCODONE BITARTRATE 01/19/2017 8 - GI Upset TRULICITY (DULAGLUTIDE) 07/17/2023 15 - Contraindication-Medical Barron* Comments: GASTROPARESIS, cannot use GLP1 FIBRATE ANTI-LIPIDEMICS 01/15/2019 17 - Myalgia Date Reviewed: 03/15/2025 Reviewed by: Geo Dent - Fully Assessed Reason for Visit: Missed Appointment [1304] Cmt: Primary care reschedule Prescriptions as of 05/04/2025 - empagliflozin (JARDIANCE) 10 mg tablet Take 1 tablet by mouth daily with breakfast. - mirtazapine (REMERON) 15 mg tablet Take 22.5 mg by mouth daily at bedtime. - Blood-Glucose Sensor ([employer] G7 SENSOR) allyson Apply new sensor every ten (10) days. - insulin lispro (HUMALOG KWIKPEN INSULIN) 100 unit/mL Inject 18 Units subcutaneously three times a day before meals. Plus sliding scale (1 unit for every 50 pts >150 pts). Max dose of 75 units per day. - insulin glargine (LANTUS SOLOSTAR U-100 INSULIN) 100 unit/mL (3 mL) Inject 66 Units subcutaneously two times a day. - LYBALVI 10-10 mg tablet Take 1 tablet by mouth daily at bedtime. - insulin needles, DISPOSABLE, (BD INSULIN PEN NEEDLE UF) 31 gauge x 5/16 Use to inject insulin 4 times daily as directed. - QUEtiapine (SEROQUEL) 50 mg tablet Take 1 tablet by mouth daily at bedtime. - rosuvastatin (CRESTOR) 40 mg tablet Take 1 tablet by mouth once daily. - sertraline (ZOLOFT) 100 mg tablet Take 1 tablet by mouth once daily. - clonazePAM (KLONOPIN) 1 mg tablet Take 1 tablet by mouth three times a day as needed for anxiety for up to 30 days. - omeprazole (PRILOSEC) 40 mg capsule Take 1 capsule by mouth two times a day. - metFORMIN (GLUCOPHAGE) 500 mg tablet Take 2 tablets by mouth two times a day with meals. - CPAP Autopap 5-20 cm H2O, Heat Humidity, suitable mask, [employer] supplies, opt Chinstrap, G47.33. Problem List As Of Date 04/26/2025 Noted Resolved Attention deficit disorder [F98.8] Obesity, unspecified [E66.9] 04/06/2005 12/09/2022 Uncontrolled type 2 diabetes mellitus with hype*08/30/2008 Essential hypertension [I10] 08/30/2008 BERYL (obstructive sleep apnea) [G47.33] 10/25/2008 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] 12/05/2009 Cervical spine pain [M54.2] 04/03/2012 Anxiety and depression [F41.9, F32.A] 06/10/2012 Mixed hyperlipidemia [E78.2] 02/12/2013 Spinal stenosis, lumbar region, without neuroge*07/02/2018 Right testicular pain [N50.811] 07/16/2018 Tobacco use [Z72.0] Gastroesophageal reflux disease with esophagiti* Bipolar disorder (HCC) [F31.9] Substance abuse (HCC) [F19.10] Obesity (BMI 30.0-34.9) [E66.811] 09/01/2018 Contusion of unspecified back wall of thorax, i*02/06/2022 Acute laryngitis [J04.0] 02/06/2022 06/26/2023 Acute lumbosacral myofascial strain [S39.012A] 02/06/2022 Back contusion [S20.229A] 02/06/2022 Chronic back pain [M54.9, G89.29] 02/06/2022 Bronchitis [J40] 02/06/2022 Cervical strain [S16.1XXA] 02/06/2022 Cocaine dependence with intoxication (HCC) [F14*09/22/2021 Gallstone pancreatitis [K85.10] 02/06/2022 Gastroesophageal reflux disease [K21.9] 02/06/2022 Hyperosmolar non-ketotic state in patient with *02/06/2022 Injury of head [S09.90XA] 02/06/2022 Laceration of leg, right [S81.811A] 02/06/2022 Nonspecific colitis [K52.9] 02/06/2022 06/26/2023 Orchitis and epididymitis [N45.3] 02/06/2022 PTSD (post-traumatic stress disorder) [F43.10] 09/22/2021 Viral infection [B34.9] 02/06/2022 Belching [R14.2] 11/29/2022 Change in bowel habits [R19.4] 11/29/2022 Early satiety [R68.81] 11/29/2022 History of cocaine use [F14.91] 11/29/2022 Nausea and vomiting [R11.2] 11/29/2022 Gastroparesis due to secondary diabetes (HCC) [*01/30/2023 Precordial pain [R07.2] 03/12/2023 Sensorineural hearing loss (SNHL (more content not included)... Normal [facility]20[facility] -------- [place] ([id number]) 1980 M Date Time Provider Department 04/14/25 KYE MEADE [facility] During your visit today, we recorded the following information about you: Kye Meade RPh 04/14/2025 1:46 PM Signed Called patient for scheduled phone appt today but unable to reach. Called x 3, unable to leave voicemail since no voicemail is not set up. Primary Care Pharmacy Rescheduling Outreach Call center, please contact patient and reschedule telephone visit for Diabetes management within ~4 week(s). (Visit length: 30 minutes) Thank you, Kye Deshaun, [facility] 04/14/2025 1:45 PM Henrietta Ayala PSS 04/14/2025 2:00 PM Signed Telephoned the patient regarding missed appt. Unable to reach pt. not setup Henrietta Ayala PSS 04/16/2025 11:20 AM Signed Telephoned the patient regarding missed appt. Unable to leave message. not set up. Henrietat Ayala PSS 04/19/2025 10:15 AM Signed New appt on 04/26 Allergies As of Date: 04/14/2025 Noted Allergy Reaction HYDROCODONE BITARTRATE 01/19/2017 8 - GI Upset TRULICITY (DULAGLUTIDE) 07/17/2023 15 - Contraindication-Medical Barron* Comments: GASTROPARESIS, cannot use GLP1 FIBRATE ANTI-LIPIDEMICS 01/15/2019 17 - Myalgia Date Reviewed: 03/15/2025 Reviewed by: Geo Dent - Fully Assessed Reason for Visit: Missed Appointment [1304] Cmt: Primary care reschedule Prescriptions as of 04/19/2025 - empagliflozin (JARDIANCE) 10 mg tablet Take 1 tablet by mouth daily with breakfast. - mirtazapine (REMERON) 15 mg tablet Take 22.5 mg by mouth daily at bedtime. - Blood-Glucose Sensor ([employer] G7 SENSOR) allyson Apply new sensor every ten (10) days. - insulin lispro (HUMALOG KWIKPEN INSULIN) 100 unit/mL Inject 18 Units subcutaneously three times a day before meals. Plus sliding scale (1 unit for every 50 pts >150 pts). Max dose of 75 units per day. - insulin glargine (LANTUS SOLOSTAR U-100 INSULIN) 100 unit/mL (3 mL) Inject 66 Units subcutaneously two times a day. - LYBALVI 10-10 mg tablet Take 1 tablet by mouth daily at bedtime. - insulin needles, DISPOSABLE, (BD INSULIN PEN NEEDLE UF) 31 gauge x 5/16 Use to inject insulin 4 times daily as directed. - QUEtiapine (SEROQUEL) 50 mg tablet Take 1 tablet by mouth daily at bedtime. - rosuvastatin (CRESTOR) 40 mg tablet Take 1 tablet by mouth once daily. - sertraline (ZOLOFT) 100 mg tablet Take 1 tablet by mouth once daily. - clonazePAM (KLONOPIN) 1 mg tablet Take 1 tablet by mouth three times a day as needed for anxiety for up to 30 days. - omeprazole (PRILOSEC) 40 mg capsule Take 1 capsule by mouth two times a day. - metFORMIN (GLUCOPHAGE) 500 mg tablet Take 2 tablets by mouth two times a day with meals. - CPAP Autopap 5-20 cm H2O, Heat Humidity, suitable mask, [employer] supplies, opt Chinstrap, G47.33. Problem List As Of Date 04/14/2025 Noted Resolved Attention deficit disorder [F98.8] Obesity, unspecified [E66.9] 04/06/2005 12/09/2022 Uncontrolled type 2 diabetes mellitus with hype*08/30/2008 Essential hypertension [I10] 08/30/2008 BERYL (obstructive sleep apnea) [G47.33] 10/25/2008 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] 12/05/2009 Cervical spine pain [M54.2] 04/03/2012 Anxiety and depression [F41.9, F32.A] 06/10/2012 Mixed hyperlipidemia [E78.2] 02/12/2013 Spinal stenosis, lumbar region, without neuroge*07/02/2018 Right testicular pain [N50.811] 07/16/2018 Tobacco use [Z72.0] Gastroesophageal reflux disease with esophagiti* Bipolar disorder (HCC) [F31.9] Substance abuse (HCC) [F19.10] Obesity (BMI 30.0-34.9) [E66.811] 09/01/2018 Contusion of unspecified back wall of thorax, i*02/06/2022 Acute laryngitis [J04.0] 02/06/2022 06/26/2023 Acute lumbosacral myofascial strain [S39.012A] 02/06/2022 Back contusion [S20.229A] 02/06/2022 Chronic back pain [M54.9, G89.29] 02/06/2022 Bronchitis [J40] 02/06/2022 Cervical strain [S16.1XXA] 02/06/2022 Cocaine dependence with intoxication (HCC) [F14*09/22/2021 Gallstone pancreatitis [K85.10] 02/06/2022 Gastroesophageal reflux disease [K21.9] 02/06/2022 Hyperosmolar non-ketotic state in patient with *02/06/2022 Injury of head [S09.90XA] 02/06/2022 Laceration of leg, right [S81.811A] 02/06/2022 Nonspecific colitis [K52.9] 02/06/2022 06/26/2023 Orchitis and epididymitis [N45.3] 02/06/2022 PTSD (post-traumatic stress disorder) [F43.10] 09/22/2021 Viral infection [B34.9] 02/06/2022 Belching [R14.2] 11/29/2022 Change in bowel habits [R19.4] 11/29/2022 Early satiety [R68.81] 11/29/2022 History of cocaine use [F14.91] 11/29/2022 Nausea and vomiting [R11.2] 11/29/2022 Gastroparesis due to secondary diabetes (HCC) [*01/30/2023 Precordial pain [R07.2] 03/12/2023 Sensorineural hearing loss (SNHL) of both ears *08/26/2023 Thoracolumbar back pain [M54.50, M54.6] 01/10/2024 DDD (degenerative disc disease), thorac (more content not included)... [facility] [place] ([id number]) 1980 M Date Time Provider Department 04/12/25 KYE MEADE [facility] During your visit today, we recorded the following information about you: Kye Meade [facility] 04/12/2025 2:13 PM Signed Called patient for scheduled phone appt. Pt was out of state, returning later tonight. Rescheduled visit for Saturday since I'm unable to do phone visits out of state. Kye Meade, PallaviD, [facility] Primary Care Clinical Pharmacist Allergies As of Date: 04/12/2025 Noted Allergy Reaction HYDROCODONE BITARTRATE 01/19/2017 8 - GI Upset TRULICITY (DULAGLUTIDE) 07/17/2023 15 - Contraindication-Medical Barron* Comments: GASTROPARESIS, cannot use GLP1 FIBRATE ANTI-LIPIDEMICS 01/15/2019 17 - Myalgia Date Reviewed: 03/15/2025 Reviewed by: Geo Dent - Fully Assessed Reason for Visit: Appointment [186] Prescriptions as of 04/12/2025 - empagliflozin (JARDIANCE) 10 mg tablet Take 1 tablet by mouth daily with breakfast. - mirtazapine (REMERON) 15 mg tablet Take 22.5 mg by mouth daily at bedtime. - Blood-Glucose Sensor ([employer] G7 SENSOR) allyson Apply new sensor every ten (10) days. - insulin lispro (HUMALOG KWIKPEN INSULIN) 100 unit/mL Inject 18 Units subcutaneously three times a day before meals. Plus sliding scale (1 unit for every 50 pts >150 pts). Max dose of 75 units per day. - insulin glargine (LANTUS SOLOSTAR U-100 INSULIN) 100 unit/mL (3 mL) Inject 66 Units subcutaneously two times a day. - LYBALVI 10-10 mg tablet Take 1 tablet by mouth daily at bedtime. - insulin needles, DISPOSABLE, (BD INSULIN PEN NEEDLE UF) 31 gauge x 5/16 Use to inject insulin 4 times daily as directed. - QUEtiapine (SEROQUEL) 50 mg tablet Take 1 tablet by mouth daily at bedtime. - rosuvastatin (CRESTOR) 40 mg tablet Take 1 tablet by mouth once daily. - sertraline (ZOLOFT) 100 mg tablet Take 1 tablet by mouth once daily. - clonazePAM (KLONOPIN) 1 mg tablet Take 1 tablet by mouth three times a day as needed for anxiety for up to 30 days. - omeprazole (PRILOSEC) 40 mg capsule Take 1 capsule by mouth two times a day. - metFORMIN (GLUCOPHAGE) 500 mg tablet Take 2 tablets by mouth two times a day with meals. - CPAP Autopap 5-20 cm H2O, Heat Humidity, suitable mask, [employer] supplies, opt Chinstrap, G47.33. Problem List As Of Date 04/12/2025 Noted Resolved Attention deficit disorder [F98.8] Obesity, unspecified [E66.9] 04/06/2005 12/09/2022 Uncontrolled type 2 diabetes mellitus with hype*08/30/2008 Essential hypertension [I10] 08/30/2008 BERYL (obstructive sleep apnea) [G47.33] 10/25/2008 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] 12/05/2009 Cervical spine pain [M54.2] 04/03/2012 Anxiety and depression [F41.9, F32.A] 06/10/2012 Mixed hyperlipidemia [E78.2] 02/12/2013 Spinal stenosis, lumbar region, without neuroge*07/02/2018 Right testicular pain [N50.811] 07/16/2018 Tobacco use [Z72.0] Gastroesophageal reflux disease with esophagiti* Bipolar disorder (HCC) [F31.9] Substance abuse (HCC) [F19.10] Obesity (BMI 30.0-34.9) [E66.811] 09/01/2018 Contusion of unspecified back wall of thorax, i*02/06/2022 Acute laryngitis [J04.0] 02/06/2022 06/26/2023 Acute lumbosacral myofascial strain [S39.012A] 02/06/2022 Back contusion [S20.229A] 02/06/2022 Chronic back pain [M54.9, G89.29] 02/06/2022 Bronchitis [J40] 02/06/2022 Cervical strain [S16.1XXA] 02/06/2022 Cocaine dependence with intoxication (HCC) [F14*09/22/2021 Gallstone pancreatitis [K85.10] 02/06/2022 Gastroesophageal reflux disease [K21.9] 02/06/2022 Hyperosmolar non-ketotic state in patient with *02/06/2022 Injury of head [S09.90XA] 02/06/2022 Laceration of leg, right [S81.811A] 02/06/2022 Nonspecific colitis [K52.9] 02/06/2022 06/26/2023 Orchitis and epididymitis [N45.3] 02/06/2022 PTSD (post-traumatic stress disorder) [F43.10] 09/22/2021 Viral infection [B34.9] 02/06/2022 Belching [R14.2] 11/29/2022 Change in bowel habits [R19.4] 11/29/2022 Early satiety [R68.81] 11/29/2022 History of cocaine use [F14.91] 11/29/2022 Nausea and vomiting [R11.2] 11/29/2022 Gastroparesis due to secondary diabetes (HCC) [*01/30/2023 Precordial pain [R07.2] 03/12/2023 Sensorineural hearing loss (SNHL) of both ears *08/26/2023 Thoracolumbar back pain [M54.50, M54.6] 01/10/2024 DDD (degenerative disc disease), thoracolumbar *01/10/2024 Encounter Status:Closed by KYE MEADE on 04/12/25 [facility] 03-30-2025 CNPN Telephone (INTMWS) -------- [place] ([id number]) 1980 M Date Time Provider Department 03/30/25 MICHELLE JANE INTMWS During your visit today, we recorded the following information about you: Delano Black, MARIEL 03/30/2025 4:53 PM Signed -Pt asking the staff in pcp office to print out his current med list, take to medical records, and call him when he can pick it up there. [phone] Brenna Alvarado LPN 03/31/2025 4:12 PM Signed Med list printed, taken to Med Rec. Patient notified. Brenna Alvarado LPN Allergies As of Date: 03/30/2025 Noted Allergy Reaction HYDROCODONE BITARTRATE 01/19/2017 8 - GI Upset TRULICITY (DULAGLUTIDE) 07/17/2023 15 - Contraindication-Medical Barron* Comments: GASTROPARESIS, cannot use GLP1 FIBRATE ANTI-LIPIDEMICS 01/15/2019 17 - Myalgia Date Reviewed: 03/15/2025 Reviewed by: Geo Dent - Fully Assessed Reason for Visit: Medication list [Other] Prescriptions as of 03/31/2025 - mirtazapine (REMERON) 15 mg tablet Take 22.5 mg by mouth daily at bedtime. - Blood-Glucose Sensor (Proxama G7 SENSOR) allyson Apply new sensor every ten (10) days. - insulin lispro (HUMALOG KWIKPEN INSULIN) 100 unit/mL Inject 18 Units subcutaneously three times a day before meals. Plus sliding scale (1 unit for every 50 pts >150 pts). Max dose of 75 units per day. - insulin glargine (LANTUS SOLOSTAR U-100 INSULIN) 100 unit/mL (3 mL) Inject 66 Units subcutaneously two times a day. - LYBALVI 10-10 mg tablet Take 1 tablet by mouth daily at bedtime. - empagliflozin (JARDIANCE) 10 mg tablet Take 1 tablet by mouth daily with breakfast. - insulin needles, DISPOSABLE, (BD INSULIN PEN NEEDLE UF) 31 gauge x 5/16 Use to inject insulin 4 times daily as directed. - QUEtiapine (SEROQUEL) 50 mg tablet Take 1 tablet by mouth daily at bedtime. - rosuvastatin (CRESTOR) 40 mg tablet Take 1 tablet by mouth once daily. - sertraline (ZOLOFT) 100 mg tablet Take 1 tablet by mouth once daily. - clonazePAM (KLONOPIN) 1 mg tablet Take 1 tablet by mouth three times a day as needed for anxiety for up to 30 days. - omeprazole (PRILOSEC) 40 mg capsule Take 1 capsule by mouth two times a day. - metFORMIN (GLUCOPHAGE) 500 mg tablet Take 2 tablets by mouth two times a day with meals. - CPAP Autopap 5-20 cm H2O, Heat Humidity, suitable mask, [employer] supplies, opt Chinstrap, G47.33. 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] 12/05/2009 Cervical spine pain [M54.2] 04/03/2012 Anxiety and depression [F41.9, F32.A] 06/10/2012 Mixed hyperlipidemia [E78.2] 02/12/2013 Spinal stenosis, lumbar region, without neuroge*07/02/2018 Right testicular pain [N50.811] 07/16/2018 Tobacco use [Z72.0] Gastroesophageal reflux disease with esophagiti* Bipolar disorder (HCC) [F31.9] Substance abuse (HCC) [F19.10] Obesity (BMI 30.0-34.9) [E66.811] 09/01/2018 Contusion of unspecified back wall of thorax, i*02/06/2022 Acute laryngitis [J04.0] 02/06/2022 06/26/2023 Acute lumbosacral myofascial strain [S39.012A] 02/06/2022 Back contusion [S20.229A] 02/06/2022 Chronic back pain [M54.9, G89.29] 02/06/2022 Bronchitis [J40] 02/06/2022 Cervical strain [S16.1XXA] 02/06/2022 Cocaine dependence with intoxication (HCC) [F14*09/22/2021 Gallstone pancreatitis [K85.10] 02/06/2022 Gastroesophageal reflux disease [K21.9] 02/06/2022 Hyperosmolar non-ketotic state in patient with *02/06/2022 Injury of head [S09.90XA] 02/06/2022 Laceration of leg, right [S81.811A] 02/06/2022 Nonspecific colitis [K52.9] 02/06/2022 06/26/2023 Orchitis and epididymitis [N45.3] 02/06/2022 PTSD (post-traumatic stress disorder) [F43.10] 09/22/2021 Viral infection [B34.9] 02/06/2022 Belching [R14.2] 11/29/2022 Change in bowel habits [R19.4] 11/29/2022 Early satiety [R68.81] 11/29/2022 History of cocaine use [F14.91] 11/29/2022 Nausea and vomiting [R11.2] 11/29/2022 Gastroparesis due to secondary diabetes (HCC) [*01/30/2023 Precordial pain [R07.2] 03/12/2023 Sensorineural hearing loss (SNHL) of both ears *08/26/2023 Thoracolumbar back pain [M54.50, M54.6] 01/10/2024 DDD (degenerative disc disease), thoracolumbar *01/10/2024 Encounter Status:Closed by BRENNA ALVARADO on 03/31/25 [facility]sequiel 02-24-2025 [facility] Telephone (PHMEWO) -------- [place] ([id number]) 1980 M Date Time Provider Department 02/24/25 KYE MEADE ME During your visit today, we recorded the following information about you: Kye Meade [facility] 02/24/2025 3:46 PM Signed Called patient for scheduled phone appt. Patient request to reschedule, states he was on the phone with an commonwealth attorney. Appt rescheduled for 03/15. Kye Meade, PharmD, BCPS Primary Care Clinical Pharmacist Allergies As of Date: 02/24/2025 Noted Allergy Reaction HYDROCODONE BITARTRATE 01/19/2017 8 - GI Upset TRULICITY (DULAGLUTIDE) 07/17/2023 15 - Contraindication-Medical Barron* Comments: GASTROPARESIS, cannot use GLP1 FIBRATE ANTI-LIPIDEMICS 01/15/2019 17 - Myalgia Date Reviewed: 01/06/2025 Reviewed by: Kye Meade RPh - Fully Assessed Reason for Visit: Appointment [186] Primary Visit Diagnosis:Inadequately controlled diabetes mellitus (HCC) [E11.65] Order(s):HEMOGLOBIN A1C [IAFCX5F] Order #: [id number] FUTURE COMPREHENSIVE METABOLIC PANEL [SQCMP] Order #: [id number] FUTURE LIPID PANEL, FASTING [SQLIPB] Order #: [id number] FUTURE ALBUMIN/CREATININE RATIO, URINE [SQUACR] Order #: [id number] FUTURE Prescriptions as of 02/24/2025 - insulin glargine 100 unit/mL (3 mL) Inject 64 Units subcutaneously two times a day. - LYBALVI 10-10 mg tablet Take 1 tablet by mouth daily at bedtime. - insulin lispro (HUMALOG KWIKPEN INSULIN) 100 unit/mL Inject 15 Units subcutaneously three times a day before meals. Plus sliding scale (1 unit for every 50 pts >150 pts). - empagliflozin (JARDIANCE) 10 mg tablet Take 1 tablet by mouth daily with breakfast. - insulin needles, DISPOSABLE, (BD INSULIN PEN NEEDLE UF) 31 gauge x 5/16 Use to inject insulin 4 times daily as directed. - QUEtiapine (SEROQUEL) 50 mg tablet Take 1 tablet by mouth daily at bedtime. - Blood-Glucose Sensor (FREESTYLE JOSE 3 PLUS SENSOR) allyson Apply new sensor every fifteen (15) days to upper arm. - rosuvastatin (CRESTOR) 40 mg tablet Take 1 tablet by mouth once daily. - sertraline (ZOLOFT) 100 mg tablet Take 1 tablet by mouth once daily. - clonazePAM (KLONOPIN) 1 mg tablet Take 1 tablet by mouth three times a day as needed for anxiety for up to 30 days. - omeprazole (PRILOSEC) 40 mg capsule Take 1 capsule by mouth two times a day. - metFORMIN (GLUCOPHAGE) 500 mg tablet Take 2 tablets by mouth two times a day with meals. - CPAP Autopap 5-20 cm H2O, Heat Humidity, suitable mask, [employer] supplies, opt Chinstrap, G47.33. 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] 12/05/2009 Cervical spine pain [M54.2] 04/03/2012 Anxiety and depression [F41.9, F32.A] 06/10/2012 Mixed hyperlipidemia [E78.2] 02/12/2013 Spinal stenosis, lumbar region, without neuroge*07/02/2018 Right testicular pain [N50.811] 07/16/2018 Tobacco use [Z72.0] Gastroesophageal reflux disease with esophagiti* Bipolar disorder (HCC) [F31.9] Substance abuse (HCC) [F19.10] Obesity (BMI 30.0-34.9) [E66.811] 09/01/2018 Contusion of unspecified back wall of thorax, i*02/06/2022 Acute laryngitis [J04.0] 02/06/2022 06/26/2023 Acute lumbosacral myofascial strain [S39.012A] 02/06/2022 Back contusion [S20.229A] 02/06/2022 Chronic back pain [M54.9, G89.29] 02/06/2022 Bronchitis [J40] 02/06/2022 Cervical strain [S16.1XXA] 02/06/2022 Cocaine dependence with intoxication (HCC) [F14*09/22/2021 Gallstone pancreatitis [K85.10] 02/06/2022 Gastroesophageal reflux disease [K21.9] 02/06/2022 Hyperosmolar non-ketotic state in patient with *02/06/2022 Injury of head [S09.90XA] 02/06/2022 Laceration of leg, right [S81.811A] 02/06/2022 Nonspecific colitis [K52.9] 02/06/2022 06/26/2023 Orchitis and epididymitis [N45.3] 02/06/2022 PTSD (post-traumatic stress disorder) [F43.10] 09/22/2021 Viral infection [B34.9] 02/06/2022 Belching [R14.2] 11/29/2022 Change in bowel habits [R19.4] 11/29/2022 Early satiety [R68.81] 11/29/2022 History of cocaine use [F14.91] 11/29/2022 Nausea and vomiting [R11.2] 11/29/2022 Gastroparesis due to secondary diabetes (HCC) [*01/30/2023 Precordial pain [R07.2] 03/12/2023 Sensorineural hearing loss (SNHL) of both ears *08/26/2023 Thoracolumbar back pain [M54.50, M54.6] 01/10/2024 DDD (degenerative disc disease), thoracolumbar *01/10/2024 Encounter Status:Closed by KYE MEADE on 02/24/25 [facility]20[facility] [place] ([id number]) 1980 M Date Time Provider Department 02/03/25 KYE MEADE ME During your visit today, we recorded the following information about you: Kye Meade [facility] 02/03/2025 10:18 AM Signed Called patient for scheduled phone appt today. Unable to reach x 3 or LMOM since voicemail box is not set up yet. Tried calling both home and cell phones. Primary Care Pharmacy Rescheduling Outreach Call center, please contact patient and reschedule telephone visit for Diabetes management within ~4 week(s). (Visit length: 30 minutes) Thank you, Kye Meade [facility] 02/03/2025 10:17 AM Kevin Weaver 02/03/2025 10:31 AM Signed Called both numbers listed in chart. Neither have a voicemail set up. First attempt. Kevin Weaver 02/04/2025 10:43 AM Signed Called and spoke to the patient. An appointment was made for 02/24/25. Allergies As of Date: 02/03/2025 Noted Allergy Reaction HYDROCODONE BITARTRATE 01/19/2017 8 - GI Upset TRULICITY (DULAGLUTIDE) 07/17/2023 15 - Contraindication-Medical Barron* Comments: GASTROPARESIS, cannot use GLP1 FIBRATE ANTI-LIPIDEMICS 01/15/2019 17 - Myalgia Date Reviewed: 01/06/2025 Reviewed by: Kye Meade [facility] - Fully Assessed Reason for Visit: Missed Appointment [1304] Cmt: Primary care reschedule Prescriptions as of 02/04/2025 - insulin glargine 100 unit/mL (3 mL) Inject 64 Units subcutaneously two times a day. - LYBALVI 10-10 mg tablet Take 1 tablet by mouth daily at bedtime. - insulin lispro (HUMALOG KWIKPEN INSULIN) 100 unit/mL Inject 15 Units subcutaneously three times a day before meals. Plus sliding scale (1 unit for every 50 pts >150 pts). - empagliflozin (JARDIANCE) 10 mg tablet Take 1 tablet by mouth daily with breakfast. - insulin needles, DISPOSABLE, (BD INSULIN PEN NEEDLE UF) 31 gauge x 5/16 Use to inject insulin 4 times daily as directed. - QUEtiapine (SEROQUEL) 50 mg tablet Take 1 tablet by mouth daily at bedtime. - Blood-Glucose Sensor (FREESTYLE JOSE 3 PLUS SENSOR) allyson Apply new sensor every fifteen (15) days to upper arm. - rosuvastatin (CRESTOR) 40 mg tablet Take 1 tablet by mouth once daily. - sertraline (ZOLOFT) 100 mg tablet Take 1 tablet by mouth once daily. - clonazePAM (KLONOPIN) 1 mg tablet Take 1 tablet by mouth three times a day as needed for anxiety for up to 30 days. - omeprazole (PRILOSEC) 40 mg capsule Take 1 capsule by mouth two times a day. - metFORMIN (GLUCOPHAGE) 500 mg tablet Take 2 tablets by mouth two times a day with meals. - CPAP Autopap 5-20 cm H2O, Heat Humidity, suitable mask, [employer] supplies, opt Chinstrap, G47.33. 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] 12/05/2009 Cervical spine pain [M54.2] 04/03/2012 Anxiety and depression [F41.9, F32.A] 06/10/2012 Mixed hyperlipidemia [E78.2] 02/12/2013 Spinal stenosis, lumbar region, without neuroge*07/02/2018 Right testicular pain [N50.811] 07/16/2018 Tobacco use [Z72.0] Gastroesophageal reflux disease with esophagiti* Bipolar disorder (HCC) [F31.9] Substance abuse (HCC) [F19.10] Obesity (BMI 30.0-34.9) [E66.811] 09/01/2018 Contusion of unspecified back wall of thorax, i*02/06/2022 Acute laryngitis [J04.0] 02/06/2022 06/26/2023 Acute lumbosacral myofascial strain [S39.012A] 02/06/2022 Back contusion [S20.229A] 02/06/2022 Chronic back pain [M54.9, G89.29] 02/06/2022 Bronchitis [J40] 02/06/2022 Cervical strain [S16.1XXA] 02/06/2022 Cocaine dependence with intoxication (HCC) [F14*09/22/2021 Gallstone pancreatitis [K85.10] 02/06/2022 Gastroesophageal reflux disease [K21.9] 02/06/2022 Hyperosmolar non-ketotic state in patient with *02/06/2022 Injury of head [S09.90XA] 02/06/2022 Laceration of leg, right [S81.811A] 02/06/2022 Nonspecific colitis [K52.9] 02/06/2022 06/26/2023 Orchitis and epididymitis [N45.3] 02/06/2022 PTSD (post-traumatic stress disorder) [F43.10] 09/22/2021 Viral infection [B34.9] 02/06/2022 Belching [R14.2] 11/29/2022 Change in bowel habits [R19.4] 11/29/2022 Early satiety [R68.81] 11/29/2022 History of cocaine use [F14.91] 11/29/2022 Nausea and vomiting [R11.2] 11/29/2022 Gastroparesis due to secondary diabetes (HCC) [*01/30/2023 Precordial pain [R07.2] 03/12/2023 Sensorineural hearing loss (SNHL) of both ears *08/26/2023 Thoracolumbar back pain [M54.50, M54.6] 01/10/2024 DDD (degenerative disc disease), thoracolumbar *01/10/2024 Encounter Status:Closed by KYE MEADE on 02/03/25 [facility] 09-23-2024 [facility] Telephone (PSYLME) -------- [place] ([id number]) 1980 Date Time Provider Department 09/23/24 CORINNE LEMOS PSYLME During your visit today, we recorded the following information about you: Corinne Lemos [facility] 09/23/2024 4:23 PM Signed Behavioral Health Social Work Progress Note Patient identified for [facility] from: PCP Reason for referral: Resources Behavioral Health Resources: Psychiatry med management [facility] encounter type: Telephone Encounter, Letter Attempts to Outreach: 2 attempts Referral made: Psychology - External Psychology-External referral type: Therapy Final Disposition: Resources given Patient Discharged?: Yes [facility] attempted to reach patient again by phone, goes straight to voicemail. Recording indicates that voicemail is not yet set up. Patient also does not have MyChart. [facility] sending patient a letter with resources. TATUM Cooper-S September 23, 2024 Allergies As of Date: 09/23/2024 Noted Allergy Reaction HYDROCODONE BITARTRATE 01/19/2017 8 - GI Upset TRULICITY (DULAGLUTIDE) 07/17/2023 15 - Contraindication-Medical Barron* Comments: GASTROPARESIS, cannot use GLP1 FIBRATE ANTI-LIPIDEMICS 01/15/2019 17 - Myalgia Date Reviewed: 09/07/2024 Reviewed by: Kaylee Vincent APRN.POLYSOMNOGRAPHY TECHNICIAN - Fully Assessed Reason for Visit: consult [Other] Prescriptions as of 09/23/2024 - empagliflozin (JARDIANCE) 10 mg tablet Take 1 tablet by mouth daily with breakfast. - insulin lispro (HUMALOG KWIKPEN INSULIN) 100 unit/mL Inject 12 Units subcutaneously three times a day before meals. - insulin needles, DISPOSABLE, (BD INSULIN PEN NEEDLE UF) 31 gauge x 5/16 Use to inject insulin 4 times daily as directed. - QUEtiapine (SEROQUEL) 50 mg tablet Take 1 tablet by mouth daily at bedtime. - Blood-Glucose Sensor (FREESTYLE JOSE 3 PLUS SENSOR) allyson Apply new sensor every fifteen (15) days to upper arm. - rosuvastatin (CRESTOR) 40 mg tablet Take 1 tablet by mouth once daily. - sertraline (ZOLOFT) 100 mg tablet Take 1 tablet by mouth once daily. - clonazePAM (KLONOPIN) 1 mg tablet Take 1 tablet by mouth three times a day as needed for anxiety for up to 30 days. - omeprazole (PRILOSEC) 40 mg capsule Take 1 capsule by mouth two times a day. - insulin glargine 100 unit/mL (3 mL) Inject 50 Units subcutaneously daily at bedtime. or as directed - metFORMIN (GLUCOPHAGE) 500 mg tablet Take 2 tablets by mouth two times a day with meals. - CPAP Autopap 5-20 cm H2O, Heat Humidity, suitable mask, [employer] supplies, opt Chinstrap, G47.33. 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] 12/05/2009 Cervical spine pain [M54.2] 04/03/2012 Anxiety and depression [F41.9, F32.A] 06/10/2012 Mixed hyperlipidemia [E78.2] 02/12/2013 Spinal stenosis, lumbar region, without neuroge*07/02/2018 Right testicular pain [N50.811] 07/16/2018 Tobacco use [Z72.0] Gastroesophageal reflux disease with esophagiti* Bipolar disorder (HCC) [F31.9] Substance abuse (HCC) [F19.10] Obesity (BMI 30.0-34.9) [E66.811] 09/01/2018 Contusion of unspecified back wall of thorax, i*02/06/2022 Acute laryngitis [J04.0] 02/06/2022 06/26/2023 Acute lumbosacral myofascial strain [S39.012A] 02/06/2022 Back contusion [S20.229A] 02/06/2022 Chronic back pain [M54.9, G89.29] 02/06/2022 Bronchitis [J40] 02/06/2022 Cervical strain [S16.1XXA] 02/06/2022 Cocaine dependence with intoxication (HCC) [F14*09/22/2021 Gallstone pancreatitis [K85.10] 02/06/2022 Gastroesophageal reflux disease [K21.9] 02/06/2022 Hyperosmolar non-ketotic state in patient with *02/06/2022 Injury of head [S09.90XA] 02/06/2022 Laceration of leg, right [S81.811A] 02/06/2022 Nonspecific colitis [K52.9] 02/06/2022 06/26/2023 Orchitis and epididymitis [N45.3] 02/06/2022 PTSD (post-traumatic stress disorder) [F43.10] 09/22/2021 Viral infection [B34.9] 02/06/2022 Belching [R14.2] 11/29/2022 Change in bowel habits [R19.4] 11/29/2022 Early satiety [R68.81] 11/29/2022 History of cocaine use [F14.91] 11/29/2022 Nausea and vomiting [R11.2] 11/29/2022 Gastroparesis due to secondary diabetes (HCC) [*01/30/2023 Precordial pain [R07.2] 03/12/2023 Sensorineural hearing loss (SNHL) of both ears *08/26/2023 Thoracolumbar back pain [M54.50, M54.6] 01/10/2024 DDD (degenerative disc disease), thoracolumbar *01/10/2024 Letter Text Encounter Status:Closed by CORINNE LEMOS on 09/23/24 [facility] 09-17-2024 CNPN Telephone (PNMDNA) -------- [place] ([id number]) 1980 Date Time Provider Department 09/17/24 IAIN NGUYỄN PNMDLEROY During your visit today, we recorded the following information about you: Rochelle Pressley RN 09/17/2024 2:36 PM Signed Received voicemail 09-17-24 at 1:23 PM. Call back number [phone] Patient stating he needs appointment with Dr. Nguyễn to find out what he can do with my back. The injections didn't work. Forwarding to Dr. Nguyễn's clinical staff for review. Karlee Turcios MA 09/17/2024 3:05 PM Signed Routing to clerical to assist with an appointment with Dr. Nguyễn to discuss alternative options. Mathieu Morelso 09/17/2024 4:12 PM Signed Called patient on both numbers, no answer and voicemail not set up. Also not on my MyChart. Will try phone call again another day before mailing out letter. Dary Rodríguez RN 09/18/2024 10:32 AM Signed Patient contacted Pain Management with voicemail on 09/17/2024 at 1605 stating that he missed a call from Dr. Nguyễn's office. Patient requesting return telephone call at [phone]. [facility]. Mathieu Morelos 09/18/2024 10:48 AM Signed Spoke with patient this morning and got him scheduled. Allergies As of Date: 09/17/2024 Noted Allergy Reaction HYDROCODONE BITARTRATE 01/19/2017 8 - GI Upset TRULICITY (DULAGLUTIDE) 07/17/2023 15 - Contraindication-Medical Barron* Comments: GASTROPARESIS, cannot use GLP1 FIBRATE ANTI-LIPIDEMICS 01/15/2019 17 - Myalgia Date Reviewed: 09/07/2024 Reviewed by: Kaylee Vincent APRN.POLYSOMNOGRAPHY TECHNICIAN - Fully Assessed Reason for Visit: Appointment [186] Prescriptions as of 09/18/2024 - empagliflozin (JARDIANCE) 10 mg tablet Take 1 tablet by mouth daily with breakfast. - insulin lispro (HUMALOG KWIKPEN INSULIN) 100 unit/mL Inject 12 Units subcutaneously three times a day before meals. - insulin needles, DISPOSABLE, (BD INSULIN PEN NEEDLE UF) 31 gauge x 5/16 Use to inject insulin 4 times daily as directed. - QUEtiapine (SEROQUEL) 50 mg tablet Take 1 tablet by mouth daily at bedtime. - Blood-Glucose Sensor (FREESTYLE JOSE 3 PLUS SENSOR) allyson Apply new sensor every fifteen (15) days to upper arm. - rosuvastatin (CRESTOR) 40 mg tablet Take 1 tablet by mouth once daily. - sertraline (ZOLOFT) 100 mg tablet Take 1 tablet by mouth once daily. - clonazePAM (KLONOPIN) 1 mg tablet Take 1 tablet by mouth three times a day as needed for anxiety for up to 30 days. - omeprazole (PRILOSEC) 40 mg capsule Take 1 capsule by mouth two times a day. - insulin glargine 100 unit/mL (3 mL) Inject 50 Units subcutaneously daily at bedtime. or as directed - metFORMIN (GLUCOPHAGE) 500 mg tablet Take 2 tablets by mouth two times a day with meals. - CPAP Autopap 5-20 cm H2O, Heat Humidity, suitable mask, [employer] supplies, opt Chinstrap, G47.33. Problem List As Of Date 09/17/2024 Noted Resolved Attention deficit disorder [F98.8] Obesity, unspecified [E66.9] 04/06/2005 12/09/2022 Uncontrolled type 2 diabetes mellitus with hype*08/30/2008 Essential hypertension [I10] 08/30/2008 BERYL (obstructive sleep apnea) [G47.33] 10/25/2008 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] 12/05/2009 Cervical spine pain [M54.2] 04/03/2012 Anxiety and depression [F41.9, F32.A] 06/10/2012 Mixed hyperlipidemia [E78.2] 02/12/2013 Spinal stenosis, lumbar region, without neuroge*07/02/2018 Right testicular pain [N50.811] 07/16/2018 Tobacco use [Z72.0] Gastroesophageal reflux disease with esophagiti* Bipolar disorder (HCC) [F31.9] Substance abuse (HCC) [F19.10] Obesity (BMI 30.0-34.9) [E66.811] 09/01/2018 Contusion of unspecified back wall of thorax, i*02/06/2022 Acute laryngitis [J04.0] 02/06/2022 06/26/2023 Acute lumbosacral myofascial strain [S39.012A] 02/06/2022 Back contusion [S20.229A] 02/06/2022 Chronic back pain [M54.9, G89.29] 02/06/2022 Bronchitis [J40] 02/06/2022 Cervical strain [S16.1XXA] 02/06/2022 Cocaine dependence with intoxication (HCC) [F14*09/22/2021 Gallstone pancreatitis [K85.10] 02/06/2022 Gastroesophageal reflux disease [K21.9] 02/06/2022 Hyperosmolar non-ketotic state in patient with *02/06/2022 Injury of head [S09.90XA] 02/06/2022 Laceration of leg, right [S81.811A] 02/06/2022 Nonspecific colitis [K52.9] 02/06/2022 06/26/2023 Orchitis and epididymitis [N45.3] 02/06/2022 PTSD (post-traumatic stress disorder) [F43.10] 09/22/2021 Viral infection [B34.9] 02/06/2022 Belching [R14.2] 11/29/2022 Change in bowel habits [R19.4] 11/29/2022 Early satiety [R68.81] 11/29/2022 History of cocaine use [F14.91] 11/29/2022 Nausea and vomiting [R11.2] 11/29/2022 Gastroparesis due to secondary diabetes (HCC) [*01/30/2023 Precordial pain [R07.2] 03/12/2023 Sensorineural hearing loss (SNHL) of both ears *08/26/2023 Thoracolumbar back pain [M54.50, M54.6] 01/10/2024 DDD (degenerative disc disea (more content not included)... Normal [facility]14[facility]2024 [facility]PH[facility] -------- [place] ([id number]) 1980 M Date Time Provider Department 09/14/24 [facility] During your visit today, we recorded the following information about you: Kye Meade [facility] 09/14/2024 12:18 PM Signed Patient requested refill of mealtime insulin, though at PharmD visit on 09/07 patient mentioned he had been off mealtime insulin for the past 6 weeks. He had only recently restarted metformin and Lantus, so those meds were continued since no SMBG to review and sx of hyperglycemia have improved. Received refill request from patient asking to refill mealtime insulin (can see refill encounter from 09/11 for details). Refill request was denied. Patient told nurse he would like to schedule a sooner appt with me to discuss. I tried calling patient's mobile and home phone to schedule sooner appt and address B[place] but unable to reach. Also unable to LMOM since voicemail boxes are not set up yet. Will try again later. Kye Meade PharmD, [facility] Primary Care Clinical Pharmacist Kye Meade [facility] 09/14/2024 12:59 PM Signed Reached patient. He did get CGM. Says sugars are usually in the 250s. He thinks he needs to restart mealtime insulin. Was previously on Humalog 12 units + SSI TIDAC. Sent in new script for Humalog 12 units TIDAC. Scheduled patient for quick PharmD f/up on 09/16. The following approved medication requests have been transmitted electronically. Requested Prescriptions Signed Prescriptions Disp Refills insulin lispro (HUMALOG KWIKPEN INSULIN) 100 unit/mL 33 mL 3 Sig: Inject 12 Units subcutaneously three times a day before meals. Authorizing Provider: MICHELLE JANE Ordering User: KYE MEADE insulin needles, DISPOSABLE, (BD INSULIN PEN NEEDLE UF) 31 gauge x 5/16 400 Each 3 Sig: Use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 [place] Basic Metabolic Profile (BMP )on 08-24-2024 BUN Normal 4-19 [facility] Comment on above: Result Comment: PT D ISCHARGED Performed By: #### L 500.2500, L100.0100 #### [facility] [address] [place], [address] BUN/CRE Normal 10-20 [facility] Comment on above: Result Comment: PT D ISCHARGED Performed By: #### L 500.2500, L100.0100 #### [facility] [address] [place], [address] Calcium Normal 7.6-11.0 [facility] Comment on above: Result Comment: PT D ISCHARGED Performed By: #### L 500.2500, L100.0100 #### [facility] [address] [place], [address] CL Normal 98-107 [facility] Comment on above: Result Comment: PT D ISCHARGED Performed By: #### L 500.2500, L100.0100 #### [facility] [address] [place], [address] CO2 Normal 21.0-32.0 [facility] Comment on above: Result Comment: PT D ISCHARGED Performed By: #### L 500.2500, L100.0100 #### [facility] [address] [place], [address] CREAT,SERUM Normal 0.70-1.20 [facility] Comment on above: Result Comment: PT D ISCHARGED Performed By: #### L 500.2500, L100.0100 #### [facility] [address] [place], [address] eGFR Normal >60 [facility] Comment on above: Result Comment: PT D ISCHARGED Performed By: #### L 500.2500, L100.0100 #### [facility] [address] [place], [address] GAP Normal 5-15 [facility] Comment on above: Result Comment: PT D ISCHARGED Performed By: #### L 500.2500, L100.0100 #### [facility] [address] [place], [address] GLU Normal 70-99 [facility] Comment on above: Result Comment: PT D ISCHARGED Performed By: #### L 500.2500, L100.0100 #### [facility] [address] [place], [address] Potassium Normal 3.3-5.1 [facility] Comment on above: Result Comment: PT D ISCHARGED Performed By: #### L 500.2500, L100.0100 #### [facility] [address] [place], [address] Basic Metabolic Profile (BMP) Normal 133-145 [facility] Comment on above: Result Comment: PT D ISCHARGED Performed By: #### L 500.2500, L100.0100 #### [facility] [address] [place], [address] CBC W/Diff, Automatedon 03-0 -2024 Absolute Neut Normal 2.0-7.7 [facility] Comment on above: Result Comment: PT D ISCHARGED Performed By: #### L 500.2500, L100.0100 #### [facility] [address] [place], [address] HCT Normal 40-54 [facility] Comment on above: Result Comment: PT D ISCHARGED Performed By: #### L 500.2500, L100.0100 #### [facility] [address] [place], [address] HGB Normal 13.0-16.5 [facility] Comment on above: Result Comment: PT D ISCHARGED Performed By: #### L 500.2500, L100.0100 #### [facility] [address] [place], [address] MCH Normal 27.0-32.0 [facility] Comment on above: Result Comment: PT D ISCHARGED Performed By: #### L 500.2500, L100.0100 #### [facility] [address] [place], [address] MCHC Normal 32-36 [facility] Comment on above: Result Comment: PT D ISCHARGED Performed By: #### L 500.2500, L100.0100 #### [facility] [address] [place], [address] MCV Normal 80-94 [facility] Comment on above: Result Comment: PT D ISCHARGED Performed By: #### L 500.2500, L100.0100 #### [facility] [address] [place], [address] NEUT% Normal 47-70 [facility] Comment on above: Result Comment: PT D ISCHARGED Performed By: #### L 500.2500, L100.0100 #### [facility] [address] [place], [address] PLT Normal 150-450 [facility] Comment on above: Result Comment: PT D ISCHARGED Performed By: #### L 500.2500, L100.0100 #### [facility] [address] [place], [address] RBC Normal 4.6-6.2 [facility] Comment on above: Result Comment: PT D ISCHARGED Performed By: #### L 500.2500, L100.0100 #### [facility] [address] [place], [address] RDW CV Normal 11.6-14.6 [facility] Comment on above: Result Comment: PT D ISCHARGED Performed By: #### L 500.2500, L100.0100 #### [facility] [address] [place], [address] RDW SD Normal 35.1-43.9 [facility] Comment on above: Result Comment: PT D ISCHARGED Performed By: #### L 500.2500, L100.0100 #### [facility] [address] [place], [address] WBC Normal 4.4-11.0 [facility] Comment on above: Result Comment: PT D ISCHARGED Performed By: #### L 500.2500, L100.0100 #### [facility] [address] [place], [address] CBC panel Auto (Bld)on 08-24 Erythrocyte distribution width (RBC) [Ratio] 12 % 11.5 - 15.0 % [facility] Hematocrit (Bld) [Volume fraction] 48.4 % 39.0 - 51.0 % [facility] Hemoglobin (Bld) [Mass/Vol] 17.7 g/dL High 13.0 - 17.0 g/dL [facility] Interpretation and review of laboratory results Abnormal [facility] MCH (RBC) [Entitic mass] 29.3 pg 26.0 - 34.0 pg [facility] MCHC (RBC) [Mass/Vol] 36.6 g/dL High 30.5 - 36.0 g/dL [facility] MCV (RBC) [Entitic vol] 80.1 fL 80.0 - 100.0 fL [facility] Nucleated RBC (Bld) [#/Vol] NINF [facility] Platelet mean volume (Bld) [Entitic vol] 11.9 fL 9.0 - 12.7 fL [facility] Platelets (Bld) [#/Vol] 185 10*3/uL [facility] RBC (Bld) [#/Vol] 6.04 10*6/uL High 4.20 - 6.0 0 m/uL [facility] WBC (Bld) [#/Vol] 11.14 10*3/uL [facility] Erythrocyte distribution width (RBC) [Ratio] 12.0 % Normal 11.5-15.0 [facility] Comment on above: Order Comment: Speci men Type: BLOOD SPECIMENOrdering Facility: [facility] Address: [address] [place] [address] Performed By: #### 5 8410-2 ####[facility] [id number] [address] [place] Hematocrit (Bld) [Volume fraction] 48.4 % Normal 39.0-51.0 [facility] Comment on above: Order Comment: Speci men Type: BLOOD SPECIMENOrdering Facility: [facility] Address: [address] [place] [address] Performed By: #### 5 7310-2 ####[facility]ITAL[facility]CLIA [id number] [place] [address] [place] Hemoglobin (Bld) [Mass/Vol] 17.7 g/dL High 13.0-17.0 [facility] Comment on above: Order Comment: Speci men Type: BLOOD SPECIMENOrdering Facility: [facility] Address: [address] [place] [address] Performed By: #### 5 8410-2 ####[facility]ITAL[facility]CLIA [id number] [place] [address] [place] MCH (RBC) [Entitic mass] 29.3 pg Normal 26.0-34.0 [facility] Comment on above: Order Comment: Speci men Type: BLOOD SPECIMENOrdering Facility: [facility] Address: [address] [place] [address] Performed By: #### 5 8410-2 ####[facility] [id number] [place] [address] [place] MCHC (RBC) [Mass/Vol] 36.6 g/dL High 30.5-36.0 [facility] Comment on above: Order Comment: Speci men Type: BLOOD SPECIMENOrdering Facility: [facility] Address: [address] [place] [address] Performed By: #### 5 8410-2 ####[facility]ITAL[facility]CLIA [id number] [address] [place] MCV (RBC) [Entitic vol] 80.1 fL Normal 80.0-100.0 [facility] Comment on above: Order Comment: Speci men Type: BLOOD SPECIMENOrdering Facility: [facility] Address: [address] [place] [address] Performed By: #### 5 8410-2 ####[facility]ITALNCLI [id number] [place] [address] [place] Nucleated RBC (Bld) [#/Vol] 10*3/uL Normal <0.01 [facility] Comment on above: Order Comment: Speci men Type: BLOOD SPECIMENOrdering Facility: [facility] Address: [address] [place] [address] Performed By: #### 5 8410-2 ####[facility] DANNIECLERMONTASHLEYLESLY [id number] [place] [address] [place] Platelet mean volume (Bld) [Entitic vol] 11.9 fL Normal 9.0-12.7 [facility] Comment on above: Order Comment: Speci men Type: BLOOD SPECIMENOrdering Facility: [facility] Address: [address] [place] [address] Performed By: #### 5 8410-2 ####[facility]ITALASHLEYM[facility] [id number] [place] [address] [place] Platelets (Bld) [#/Vol] 185 10*3/uL Normal 150-400 [facility] Comment on above: Order Comment: Speci men Type: BLOOD SPECIMENOrdering Facility: [facility] Address: [address] [place] [address] Performed By: #### 5 8410-2 ####ED [facility] HOSPITALNCDARRELLA [id number] [place] [address] [place] RBC (Bld) [#/Vol] 6.04 10*6/uL High 4.20-6.00 [facility] Comment on above: Order Comment: Speci men Type: BLOOD SPECIMENOrdering Facility: [facility] Address: [address] [place] [address] Performed By: #### 5 8410-2 ####[facility]ITALNCLIA [id number] [place] [address] [place] WBC (Bld) [#/Vol] 11.14 10*3/uL High 3.70-11.00 [facility] Comment on above: Order Comment: Speci men Type: BLOOD SPECIMENOrdering Facility: [facility] Address: [address] [address] Performed By: #### 5 8410-2 ####[facility] [place] URENAANANYA [id number] [place] [id number] [place] [address] OF [facility] CNOVon 08-24-2024 CNOV Office Visit ([facility] ) -------- DENVER HOLLINGSWORTH ([id number]) 1980 M Date Time Provider Department 08/24/24 4:00 PM [facility] During your visit today, we recorded the following information about you: Temperature Pulse Respiration Blood pressure 96.9 degrees 106/minute 18/minute 144/88 Weight 122.8 kg Indu Tapia MD 08/24/2024 4:25 PM Signed Patient presents with: Dizziness: lightheadedness, anxious, aggravated, dizziness x 6 weeks HPI: Patient presents to the psychiatric because there was a several hour wait at the emergency room. 6 weeks ago he stopped taking all of his medications including diabetic and psychiatric. He is feeling dizzy, lightheaded, anxious, aggravated. He had routine labs drawn this morning of which only the CBC is back showing elevated white count and hemoglobin. He would like to have his fingerstick glucose performed and will return to the ER if it is elevated. MEDICATIONS: pioglitazone (ACTOS) 30 mg tablet Take 1 tablet by mouth once daily. (Patient not taking: Reported on 08/24/2024) metoprolol succinate ER (TOPROL XL) 50 mg 24 hr tablet Take 1 tablet by mouth once daily. (Patient not taking: Reported on 08/24/2024) terazosin (HYTRIN) 5 mg capsule Take 1 capsule by mouth daily at bedtime. (Patient not taking: Reported on 08/24/2024) atorvastatin (LIPITOR) 20 mg tablet Take 1 tablet by mouth daily at bedtime. For cholesterol. (Patient not taking: Reported on 08/24/2024) sertraline (ZOLOFT) 50 mg tablet Take 1 tablet by mouth once daily. (Patient not taking: Reported on 08/24/2024) lisinopril (ZESTRIL) 5 mg tablet Take 1 tablet by mouth once daily. (Patient not taking: Reported on 08/24/2024) lisinopril (ZESTRIL) 5 mg tablet Take 1 tablet by mouth once daily. metFORMIN (GLUCOPHAGE) 500 mg tablet Take 2 tablets by mouth two times a day with meals. (Patient not taking: Reported on 08/24/2024) buPROPion XL (WELLBUTRIN XL) 150 mg 24 hr tablet Take 1 tablet by mouth once daily. (Patient not taking: Reported on 08/24/2024) insulin glargine 100 unit/mL (3 mL) Inject 50 Units subcutaneously two times a day. or as directed (Patient not taking: Reported on 08/24/2024) insulin lispro (HUMALOG U-100 INSULIN) 100 unit/mL crtg Take 12 units with meals. Insulin Sliding Scale: BG 70-150, give 0 units; BG 151-180, give 4 units; BG 181-220, give 6 units; BG 221-260, give 8 units; BG 261-300, give 10 units; BG 301-340, give 12 units; BG 341-380, give 14 units and call provider. (Patient not taking: Reported on 08/24/2024) insulin needles, DISPOSABLE, (BD INSULIN PEN NEEDLE UF) 31 gauge x 5/16 Use to inject insulin as directed. Up to 5 daily injections (Patient not taking: Reported on 08/24/2024) CPAP Autopap 5-20 cm H2O, Heat Humidity, suitable mask, [employer] supplies, opt Chinstrap, G47.33. (Patient not taking: Reported on 08/22/2023) Lancets lancets Choose lancets covered by insurance. Test blood sugar(s) 3 times daily. Dx: Type 2 DM - Uncontrolled E11.65 Insulin: Yes (Patient taking differently: Choose lancets covered by insurance. Test blood sugar(s) 3 times daily. Dx: Type 2 DM - Uncontrolled E11.65 Insulin: Yes) ALLERGIES: ALLERGIES Allergen Reactions Hydrocodone Bitartr* GI Upset Trulicity [Dulaglut* Contraindication-Medical Surgical GASTROPARESIS, cannot use GLP1 Fibrate Anti-Lipide* Myalgia VITALS: BP 144/88 Pulse 106 Temp 36.1 ?C (96.9 ?F) Resp 18 Wt 122.8 kg (270 lb 11.6 oz) SpO2 98% BMI 32.95 kg/m? PE: Alert, slightly increased rate of speech, in no acute distress. Ambulates without assistance. Accompanied by his . ASSESSMENT/PLAN: 1. Uncontrolled type 2 diabetes mellitus with hyperglycemia (HCC) - ICD9: 250.02, ICD10: E11.65 (primary diagnosis) 2. Dizziness - ICD9: 780.4, ICD10: R42 3. Agitation - ICD9: 307.9, ICD10: R45.1 4. Noncompliance with medication regimen - ICD9: V15.81, ICD10: Z91.148 Latest Ref Rng 08/24/2024 Glucose, Point of Care 74 - 99 mg/dL 548 ! Patient is agreeable to return to the [facility] ER for care. Case discussed with his PCP. Indu Tapia MD Allergies As of Date: 08/24/2024 Noted Allergy Reaction HYDROCODONE BITARTRATE 01/19/2017 8 - GI Upset TRULICITY (DULAGLUTIDE) 07/17/2023 15 - Contraindication-Medical [place]* Comments: GASTROPARESIS, cannot use GLP1 FIBRATE ANTI-LIPIDEMICS 01/15/2019 17 - Myalgia Date Reviewed: 08/24/2024 Reviewed by: Joy Wick MA - Fully Assessed Reason for Visit: Dizziness [36] Cmt: lightheadedness, anxious, aggravated, dizziness x 6 weeks Primary Visit Diagnosis:Uncontrolled type 2 diabetes mellitus with hyperglycemia (HCC) [E11.65] Other Visit Diagnoses:Dizziness [R42] Agitation [R45.1] Noncompliance with medication regimen [Z91.148] Order(s):GLUCOSE, BLOOD (POC) [9334870] Order #: [id number]. #:[id number] Prescriptions as of 08/24/2024 - pi (more content not included)... Normal [facility] Cholesterol in LDL Direct as say [Mass/Vol]on 08-24-2024 Cholesterol in LDL [Mass/Vol] 91 mg/dL Normal <100 [facility] Comment on above: Order Comment: Cleo reaves Type: BLOOD SPECIMENOrdering Facility: [facility] Address: [address] [place] [address] Result Comment: <100 mg/dL, Optimal 100-129 mg/dL, Near optimal/above optimal 130-159 mg/dL, Borderline high 160-189 mg/dL, High >189 mg/dL, Very high Secondary prevention optimal LDL Cholesterol levels are recommended to be < 70 mg/dL Performed By: #### 2 4323-8, 06850-8, 81723-9 ####[facility] LABORATORYCLIA [id number] [address] OF [facility] Cholesterol in VLDL [Mass/Vol] 161 mg/dL High <30 [facility] Comment on above: Order Comment: Cleo reaves Type: BLOOD SPECIMENOrdering Facility: [facility] Address: [address] [place] [address] Performed By: #### 2 4323-8, 43054-5, 36832-1 ####[facility] LABORATORYCLIA [id number] [address] OF [facility] Comprehensive metabolic 2000 panelon 08-24-2024 Albumin [Mass/Vol] 4.4 g/dL 3.9 - 4.9 g/dL [facility] ALP [Catalytic activity/Vol] 147 U/L High 38 - 113 U/L [facility] ALT With P-5'-P [Catalytic activity/Vol] 31 U/L 10 - 54 U/L [facility] Anion gap [Moles/Vol] 13 mmol/L 8 - 15 mmol/L [facility] AST With P-5'-P [Catalytic activity/Vol] 15 U/L 14 - 40 U/L [facility] Bilirubin [Mass/Vol] 0.4 mg/dL 0.2 - 1.3 mg/dL [facility] Calcium [Mass/Vol] 10.1 mg/dL 8.5 - 10. 2 mg/dL [facility] Chloride [Moles/Vol] 96 mmol/L Low 98 - 107 mmol/L [facility] CO2 [Moles/Vol] 21 mmol/L Low 22 - 30 mmol/L [facility] Creatinine [Mass/Vol] 0.77 mg/dL 0.73 - 1.22 mg/dL [facility] GFR/1.73 sq M.predicted among non-blacks MDRD (S/P/Bld) [Vol rate/Area] 113 mL/min/{1.73_m2} - PINF [facility] Comment on above: Estimated Glomerular Filtration Rate (eGFR) is calculated using the 2020 CKD-EPI creatinine equation. This equation utilizes serum creatinine, sex, and age as parameters. The creatinine assay has traceable calibration to isotope dilution-mass spectrometry. Refer to KDIGO guidelines for clinical interpretation. In patients with unstable renal function, e.g. those with acute kidney injury, the eGFR may not accurately reflect actual GFR. Glucose [Mass/Vol] 469 mg/dL High 74 - 99 mg/dL [facility] Comment on above: The [place] Diabete s Association (ADA) provides guidance for cutoff values for fasting glucose and random glucose. The ADA defines fasting as no caloric intake for at least 8 hours. Fasting plasma glucose results between 100 to 125 [...] Standards of Medical Care in Diabetes 2016, [place] [employer] Association. Diabetes Care. 2016.39(Suppl 1). Interpretation and review of laboratory results Abnormal [facility] Potassium [Moles/Vol] 4.2 mmol/L 3.7 - 5.1 mmol/L [facility] Protein [Mass/Vol] 7.5 g/dL 6.3 - 8.0 g/dL [facility] Sodium [Moles/Vol] 130 mmol/L Low 136 - 144 mmol/L [facility] Urea nitrogen [Mass/Vol] 19 mg/dL 9 - 24 mg/dL [facility] Albumin [Mass/Vol] 4.4 g/dL Normal 3.9-4.9 [facility] Comment on above: Order Comment: Speci men Type: BLOOD SPECIMENOrdering Facility: [facility] Address: [address] [place] [address] Performed By: #### 2 4323-8, 93683-4, ####[facility] LABORATORYCLIA [id number] [place] [address] [place] ALP [Catalytic activity/Vol] 147 U/L High 38-113 [facility] Comment on above: Order Comment: Speci men Type: BLOOD SPECIMENOrdering Facility: [facility] Address: [address] [place] [address] Performed By: #### 2 4323-8, 35681-2, ####[facility] LABORATORYCLIA [id number] [address] [place] ALT With P-5'-P [Catalytic activity/Vol] 31 U/L Normal 10-54 [facility] Comment on above: Order Comment: Speci men Type: BLOOD SPECIMENOrdering Facility: [facility] Address: [address] [place] [address] Performed By: #### 2 4323-8, 88278-4, ####[facility] LABORATORYCLIA [id number] [address] [place] Anion gap [Moles/Vol] 13 mmol/L Normal 8-15 [facility] Comment on above: Order Comment: Speci men Type: BLOOD SPECIMENOrdering Facility: [facility] Address: [address] [place] [address] Performed By: #### 2 4323-8, 20301-2, 99197-5 ####[facility] LABORATORYCLIA [id number] [place] [address] [place] AST With P-5'-P [Catalytic activity/Vol] 15 U/L Normal 14-40 [facility] Comment on above: Order Comment: Speci men Type: BLOOD SPECIMENOrdering Facility: [facility] Address: [address] [place] [address] Performed By: #### 2 4323-8, 07367-7, ####[facility] LABORATORYCLIA [id number] [place] [address] [place] Bilirubin [Mass/Vol] 0.4 mg/dL Normal 0.2-1.3 [facility] Comment on above: Order Comment: Speci men Type: BLOOD SPECIMENOrdering Facility: [facility] Address: [address] [place] [address] Performed By: #### 2 4323-8, 28694-3, ####[facility] LABORATORYCLIA [id number] [place] [address] [place] Calcium [Mass/Vol] 10.1 mg/dL Normal 8.5-10.2 [facility] Comment on above: Order Comment: Speci men Type: BLOOD SPECIMENOrdering Facility: [facility] Address: [address] [place] [address] Performed By: #### 2 4323-8, 50565-3, ####[facility] LABORATORYCLIA [id number] [place] [address] [place] Chloride [Moles/Vol] 96 mmol/L Low 98-107 [facility] Comment on above: Order Comment: Speci men Type: BLOOD SPECIMENOrdering Facility: [facility] Address: [address] [place] [address] Performed By: #### 2 4323-8, 66373-6, ####[facility] LABORATORYCLIA [id number] [place] [address] [place] CO2 [Moles/Vol] 21 mmol/L Low 22-30 [facility] Comment on above: Order Comment: Speci men Type: BLOOD SPECIMENOrdering Facility: [facility] Address: [facility] [place] [address] Performed By: #### 2 4323-8, 83835-2, 58970-6 ####[facility] LABORATORYCLIA [id number] [facility] [address] OF [facility] Creatinine [Mass/Vol] 0.77 mg/dL Normal 0.73-1.22 [facility] Comment on above: Order Comment: Cleo reaves Type: BLOOD SPECIMENOrdering Facility: [facility] Address: [address] [place] [address] Performed By: #### 2 4323-8, 21777-3, 35540-3 ####[facility] [place] [id number] [address] Creatinine and Glomerular filtration rate.predicted panel (S/P/Bld) 113 mL/min/1.73m??? Normal >=60 [facility] Comment on above: Order Comment: Cleo reaves Type: BLOOD SPECIMENOrdering Facility: [facility] Address: [address] [place] [address] Result Comment: Moira mated Glomerular Filtration Rate (eGFR) is calculated using the 2020 CKD-EPI creatinine equation. This equation utilizes serum creatinine, sex, and age as parameters. The creatinine assay has traceable calibration to isotope dilution-mass spectrometry. Refer to KDIGO guidelines for clinical interpretation. In patients with unstable renal function, e.g. those with acute kidney injury, the eGFR may not accurately reflect actual GFR. Performed By: #### 2 4323-8, 53529-0, 73167-6 ####[facility] LABORATORYCLIA [id number] [address] STATES OF [facility] Glucose [Mass/Vol] 469 mg/dL High 74-99 [facility] Comment on above: Order Comment: Cleo reaves Type: BLOOD SPECIMENOrdering Facility: [facility] Address: [address] [place] [address] Result Comment: The [place] Diabetes Association (ADA) provides guidance for cutoff values for fasting glucose and random glucose. The ADA defines fasting as no caloric intake for at least 8 hours. Fasting plasma glucose results between 100 to 125 [...] Standards of Medical Care in Diabetes 2016, [place] [employer] Association. Diabetes Care. 2016.39(Suppl 1). Performed By: #### 2 4323-8, 98012-0, ####[facility] LABORATORYCLIA [id number] [place] [address] [place] Potassium [Moles/Vol] 4.2 mmol/L Normal 3.7-5.1 [facility] Comment on above: Order Comment: Speci men Type: BLOOD SPECIMENOrdering Facility: [facility] Address: [address] [place] [address] Performed By: #### 2 4323-8, 51969-1, ####[facility] LABORATORYCLIA [id number] [place] [address] [place] Protein [Mass/Vol] 7.5 g/dL Normal 6.3-8.0 [facility] Comment on above: Order Comment: Speci men Type: BLOOD SPECIMENOrdering Facility: [facility] Address: [address] [place] [address] Performed By: #### 2 4323-8, , ####[facility] LABORATORYCLIA [id number] [place] [address] [place] Sodium [Moles/Vol] 130 mmol/L Low 136-144 [facility] Comment on above: Order Comment: Speci men Type: BLOOD SPECIMENOrdering Facility: [facility] Address: [address] [place] [address] Performed By: #### 2 4323-8, 37910-4, ####[facility] LABORATORYCLIA [id number] [place] [address] [place] Urea nitrogen [Mass/Vol] 19 mg/dL Normal 9-24 [facility] Comment on above: Order Comment: Speci men Type: BLOOD SPECIMENOrdering Facility: [facility] Address: [address] [place] [address] Performed By: #### 2 4323-8, 00194-0, 66098-8 ####[facility]ORATORYCLIA [id number] [place] [address] [place] [facility] Emergency Department Summary on 08-24-2024 Emergency Department Summary [facility] Medical Records Department [address] [place] [address] Emergency Department Summary 08/24/24 MR#: [id number] Acct: [id number] Name: DENVER HOLLINGSWORTH Rep #: [id number] : 1980 44 From: Fadi Wong MD PCP: Dr. Michelle Jane MD Status:PRE ER Location: ED HPI History of Present Illness Chief Complaint: Hyperglycemia Detail of Chief Complaint: Hyperglycemia due to noncompliance Narrative Narrative: I was informed by nurse and staff that patient has left. She was not seen by me. [facility] Medical History Degenerative disc disease Diabetes mellitus Hyperlipemia Hypertension Home Medications ???Medication ???Instructions ???Recorded ???Last Taken ???Type metformin 500 mg tablet,extended 1,000 mg PO BID 03/11/18 05/19/18 History release 24 hr (Glucophage XR) lisinopril 10 mg tablet 20 mg PO DAILY hypertension 05/19/18 History insulin glargine 100 unit/mL (3 50 units subcut BID 07/31/18 Unkno wn History mL) subcutaneous pen (Lantus Solostar U-100 Insulin) atorvastatin 20 mg tablet 20 mg PO DAILY 10/26/18 Unknown Hi story dulaglutide 0.75 mg/0.5 mL 0.75 mg subcut WE 12/12/21 Unknown History subcutaneous pen injector (Trulicity) insulin lispro 100 unit/mL 12 unit subcut TID 12/12/21 Unknow n History subcutaneous pen insulin lispro 100 unit/mL subcut 12/12/21 Unknown History subcutaneous pen lurasidone 40 mg tablet (Latuda) 40 tab PO DAILY 12/12/21 Unknown H istory ondansetron 4 mg disintegrating 4 mg PO Q8H PRN PRN Nausea #10 tab s 12/12/21 Unknown Rx tablet oxcarbazepine 300 mg tablet 300 tab PO BID 12/12/21 Unknown Hi story (Trileptal) sertraline 50 mg tablet 50 tab PO DAILY 12/12/21 Unknown H istory naproxen 500 mg tablet 500 mg PO BID PRN pain #20 tabs Unknown Rx naproxen 500 mg tablet (Naprosyn) 500 mg PO BID PRN pain #20 tabs 0 11/28/23 Unknown Rx Allergy/AdvReac Type Severity Reaction Status Date / Time hydrocodone bitartrate (From AdvReac Nausea Verified 05/08/24 15:56 Vicodin) Surgical History History of cholecystectomy Social History Smoking Status: Current every day smoker tobacco type: cigarettes EXAM Physical Exam Const Vital Signs: 08/24/24 16:33 Temperature 98.1 F Temperature Source Temporal Pulse Rate 97 Respiratory Rate 16 Blood Pressure 155/90 H Blood Pressure Mean 111 Pulse Ox 99 Oxygen Delivery Method Room Air MDM MDM MDM Narrative Medical decision making narrative: Hyperglycemia due to noncompliance. Patient left prior to the IV and blood draw. Patient left prior to me seeing her. Discharge Plan Triage Chief Complaint: Hyperglycemia ED Provider: Fadi Wong Dx/Rx/DC Orders Clinical Impression: Patient left without being seen, Type 2 diabetes mellitus with hyperglycemia, Noncompliance with medication regimen Prescriptions: No Action metformin [Glucophage XR] 500 MG tablet extended release 24 hr 1,000 mg PO BID lisinopril 10 MG tablet 20 mg PO DAILY insulin glargine [Lantus Solostar U-100 Insulin] 100 UNITS/ML insulin pen 50 units subcut BID atorvastatin 20 MG tablet 20 mg PO DAILY oxcarbazepine [Trileptal] 300 mg tablet 300 tab PO BID Patient Comments: Take 1 tablet by mouth twice a day sertraline 50 mg tablet 50 tab PO DAILY Patient Comments: Take 1 tablet by mouth once a day Latuda 40 mg tablet 40 tab PO DAILY Patient Comments: Take 1 tablet by mouth once a day insulin lispro [Humalog Pen] 100 unit/mL Insulin Pen 12 unit SUBCUT TID insulin lispro [Humalog Pen] 100 unit/mL Insulin Pen SUBCUT Rx Instructions: SSI Trulicity 0.75 mg/0.5 mL Pen Injector 0.75 mg SUBCUT WE ondansetron [ondansetron] 4 mg tablet,disintegrating 4 mg PO Q8H PRN PRN (Reason: Nausea) Qty: 10 0RF naproxen 500 mg tablet 500 mg PO BID PRN (Reason: pain) Qty: 20 0RF naproxen [Naprosyn] 500 mg tablet 500 mg PO BID PRN (Reason: pain) Qty: 20 0RF Primary Care Provider: Michelle Jane Referrals: Michelle Jane MD [Primary Care Provider] - Print Language: Spanish Disposition Disposition: LEFT WITHOUT BEING SEEN What to do if you have Problems For any increased pain, shortness of breath, bleeding, nausea or vomiting, chest pain, or any unexpected problems, contact your Primary Care Provider. Call [facility] ([phone]) or report to the closest Emergency Room. Call 911 if necessary. 08/24/241741 Cosigner Signature (if applicable): CC: Dr. Michelle Jane MD Signed Normal [facility] GLUCOSE, BLOOD (POC)on 08-24 Glucose [Mass/Vol] 548 mg/dL Abnormal 74 - 99 mg/dL [facility] Comment on above: Location:[address], [address] The Accu-Chek Inform II glucose meter has not been approved for testing on patients receiving intensive medical intervention or therapy and results from this point of care glucose test should not be used for patient management decisions in these cases. Inaccurate results may also occur from other interfering factors, such as N-acetylcysteine (blood concentrations of greater than 5mg/dL), galactose, extremes of hematocrit (<10 or >65), or high doses of ascorbic acid (vitamin C) greater than 3mg/dL. Consider alternate testing mechanisms (e.g. core lab, blood gas instrument) in the above situations. Interpretation and review of laboratory results Abnormal [facility] HbA1c (Bld)on 08-24-2024 Average glucose Estimated from glycated hemoglobin (Bld) [Mass/Vol] 292 mg/dL Normal [facility] Comment on above: Order Comment: Speci men Type: BLOOD SPECIMENOrdering Facility: [facility] Address: [address] [place] [address] Result Comment: eAG: (Estimated average glucose) is a calculated value from HgbA1c and is office services representative of the average blood glucose level in the last 2-3 month period. Performed By: #### 5 5454-3 ####[facility] LABCLIA [id number] [place] [address] [place] HbA1c (Bld) [Mass fraction] 11.8 % High 4.3-5.6 [facility] Comment on above: Order Comment: Speci men Type: BLOOD SPECIMENOrdering Facility: [facility] Address: [address] [place] [address] Result Comment: Dianne ican Diabetes Association guidelines indicate that patients with HgbA1c in the range 5.7-6.4% are at increased risk for development of diabetes, and intervention by lifestyle modification may be beneficial. HgbA1c greater or equal to 6.5% is considered diagnostic of diabetes. Performed By: #### 5 5454-3 ####[facility] LABCLIA [id number] [place] [address] [place] Lipid 1996 panelon 5 Cholesterol [Mass/Vol] 278 mg/dL High NINF - 200 mg/dL [facility] Comment on above: <200 mg/dL, Desirabl e 200-239 mg/dL, Borderline high >239 mg/dL, High Cholesterol in HDL [Mass/Vol] 26 mg/dL Low 39 - PINF mg/dL [facility] Comment on above: 40-59 mg/dL, Accepta ble >59 mg/dL, High: Negative risk factor for coronary heart disease <40 mg/dL, Low: Positive risk factor for coronary heart disease Cholesterol in LDL [Mass/Vol] [facility] Comment on above: Unable to calculate due to increased Triglycerides. See LDL- Chol, Direct. Cholesterol in LDL/Cholesterol in HDL [Mass ratio] [facility] Comment on above: Unable to calculate due to elevated Triglycerides. Reference: 1. National Cholesterol Education Program ATP III Guideline At-A-Glance Quick Desk Reference: National Heart, Lung, and Blood [place]. National Institutes of Health. 2001: NIH Publication No. 01-3305. 2. An International Atherosclerosis Society position paper: global recommendations for the management of dyslipidemia: executive summary, Atherosclerosis. 2014: 232(2):410-413. Cholesterol in VLDL [Mass/Vol] [facility] Comment on above: Unable to calculate due to increased Triglycerides. See LDL- Chol, Direct. Cholesterol non HDL [Mass/Vol] 252 mg/dL High NINF - 130 mg/dL [facility] Comment on above: <130 mg/dL, Optimal 130-159 mg/dL, Near optimal/above optimal 160-189 mg/dL, Borderline high 190-219 mg/dL, High >219 mg/dL, Very high Secondary prevention optimal non HDL Cholesterol levels are recommended to be <100 mg/dL Cholesterol.total/C holesterol in HDL [Mass ratio] 10.69 {ratio} High NINF - 5.10 [facility] Fasting Time 15 hrs [facility] Interpretation and review of laboratory results Abnormal [facility] Triglyceride [Mass/Vol] 1384 mg/dL High NINF - 150 mg/dL [facility] Comment on above: <150 mg/dL, Normal 150-199 mg/dL, Borderline high 200-499 mg/dL, High >499 mg/dL, Very high [facility] Cholesterol [Mass/Vol] 278 mg/dL High <200 [facility] Comment on above: Order Comment: Speci men Type: BLOOD SPECIMENOrdering Facility: [facility] Address: [address] [place] [address] Result Comment: <200 mg/dL, Desirable 200-239 mg/dL, Borderline high >239 mg/dL, High Performed By: #### 2 4323-8, 90064-6, 12009-3 ####[facility] LABORATORYCLIA [id number] [place] [address] [place] Cholesterol in HDL [Mass/Vol] 26 mg/dL Low >39 [facility] Comment on above: Order Comment: Speci men Type: BLOOD SPECIMENOrdering Facility: [facility] Address: [address] [place] [address] Result Comment: 40-5 9 mg/dL, Acceptable >59 mg/dL, High: Negative risk factor for coronary heart disease <40 mg/dL, Low: Positive risk factor for coronary heart disease Performed By: #### 2 4323-8, 28195-2, 40336-5 ####[facility] LABORATORYCLIA [id number] [place] [id number] [place] [facility] Cholesterol in LDL [Mass/Vol] Normal [facility] Comment on above: Order Comment: Speci men Type: BLOOD SPECIMENOrdering Facility: [facility] Address: [address] [place] [address] Result Comment: Unab le to calculate due to increased Triglycerides. See LDL-Chol, Direct. Performed By: #### 2 4323-8, 37057-5, 67214-1 ####[facility]ATORYCLIA [id number] [address] STATES [facility] Cholesterol in LDL/Cholesterol in HDL [Mass ratio] Normal [facility] Comment on above: Order Comment: Speci men Type: BLOOD SPECIMENOrdering Facility: [facility] Address: [address] [place] [address] Result Comment: Unab le to calculate due to elevated Triglycerides. Reference: 1. National Cholesterol Education Program ATP III Guideline At-A-Glance Quick Desk Reference: National Heart, Lung, and Blood [place]. National Institutes of Health. 2001: NIH Publication No. 01-3305. 2. An International Atherosclerosis Society position paper: global recommendations for the management of dyslipidemia: executive summary, Atherosclerosis. 2014: 232(2):410-413. Performed By: #### 2 4323-8, 51897-6, 94313-1 ####[facility] LABORATORYCLIA [id number] [address] STATES OF [facility] Cholesterol in VLDL [Mass/Vol] Normal [facility] Comment on above: Order Comment: Speci men Type: BLOOD SPECIMENOrdering Facility: [facility] Address: [address] [place] [address] Result Comment: Unab le to calculate due to increased Triglycerides. See LDL-Chol, Direct. Performed By: #### 2 4323-8, 24592-4, 51844-1 ####[facility] LABORATORYCLIA [id number] [facility] [address] OF [facility] Cholesterol non HDL [Mass/Vol] 252 mg/dL High <130 [facility] Comment on above: Order Comment: Speci men Type: BLOOD SPECIMENOrdering Facility: [facility] Address: [address] [place] [address] Result Comment: <130 mg/dL, Optimal 130-159 mg/dL, Near optimal/above optimal 160-189 mg/dL, Borderline high 190-219 mg/dL, High >219 mg/dL, Very high Secondary prevention optimal non HDL Cholesterol levels are recommended to be <100 mg/dL Performed By: #### 2 4323-8, 62140-3, 37682-8 ####[facility] LABORATORYCLIA [id number] [address] Cholesterol.total/C holesterol in HDL [Mass ratio] 10.69 {ratio} High <5.10 [facility] Comment on above: Order Comment: Speci men Type: BLOOD SPECIMENOrdering Facility: [facility] Address: [address] [place] [address] Performed By: #### 2 4323-8, 85702-1, 56103-8 ####[facility] LABORATORYCLIA [id number] [address] FASTING TIME 15 hrs Normal [facility] Comment on above: Order Comment: Speci men Type: BLOOD SPECIMENOrdering Facility: [facility] Address: [address] [place] [address] Performed By: #### 2 4323-8, 61415-8, 21089-0 ####[employer] [facility] LABORATORYCLIA [id number] [address] [place] Triglyceride [Mass/Vol] 1384 mg/dL High <150 [facility] Comment on above: Order Comment: Speci men Type: BLOOD SPECIMENOrdering Facility: [facility] Address: [address] [place] [address] Result Comment: <150 mg/dL, Normal 150-199 mg/dL, Borderline high 200-499 mg/dL, High >499 mg/dL, Very high Performed By: #### 2 4323-8, 55018-2, 02988-7 ####[facility] LABORATORYCLIA [id number] [place] [address] [place] Activated partial thrombopla stin time (APTT) in blood by coagulation assayon 07-28-2024 aPTT Coag (Bld) [Time] 28.7 s 24.1-41.2 [facility] [employer] Work Phone: Albumin [Mass/volume] in Ser um or Plasmaon 07-28-2024 Albumin [Mass/Vol] 4.3 g/dL 3.9-5.0 [facility] [employer] Work Phone: Albumin/Globulin [Mass Ratio ] in Serum or Plasmaon 07-28-2024 Albumin/Globulin [Mass ratio] 1.5 {ratio} 1.1-1.8 [facility] [employer] Work Phone: Anion gap 4 [Moles/Vol]on Anion gap [Moles/Vol] 15 mmol/L 9-18 [facility] [employer] Work Phone: Aspartate aminotransferase [ Enzymatic activity/volume] in Serum or Plasmaon 07-28-2024 AST [Catalytic activity/Vol] 24 U/L 14-50 [facility] Work Phone: Basophils Auto (Bld) [#/Vol] on 07-28-2024 Basophils (Bld) [#/Vol] 0.07 10*3/uL 0.00-0.30 [facility] [employer] Work Phone: Basophils/100 WBC Auto (Bld) on 07-28-2024 Basophils/100 WBC (Bld) 0.5 % [facility] [employer] Work Phone: Bilirubin.total [Mass/volume ] in Serum or Plasmaon 07-28-2024 Bilirubin [Mass/Vol] 0.6 mg/dL 0.2-1.3 [facility] [employer] Work Phone: CBC WITH AUTO DIFFon 025 Basophils (Bld) [#/Vol] 0.07 10*3/uL Normal 0.00-0.30 [facility] Comment on above: Performed By: #### C MP, DD, CPK 1, PT, PTT, MG 1, CBC #### [facility] - [address] [address] Basophils/100 WBC (Bld) 0.5 % Normal [facility] Comment on above: Performed By: #### C MP, DD, CPK 1, PT, PTT, MG 1, CBC #### [facility] - [address] [address] Eosinophils (Bld) [#/Vol] 0.19 10*3/uL Normal 0.00-0.50 [facility] Comment on above: Performed By: #### C MP, DD, CPK 1, PT, PTT, MG 1, CBC #### [facility] - [address] [address] Eosinophils/100 WBC (Bld) 1.4 % Normal [facility] Comment on above: Performed By: #### C MP, DD, CPK 1, PT, PTT, MG 1, CBC #### [facility] - [address] [address] Erythrocyte distribution width (RBC) [Ratio] 12.0 % Normal 11.6-14.8 [facility] Comment on above: Performed By: #### C MP, DD, CPK 1, PT, PTT, MG 1, CBC #### [facility] - [address] [address] Hematocrit (Bld) [Volume fraction] 44.5 % Normal 41.0-53.0 [facility] Comment on above: Performed By: #### C MP, DD, CPK 1, PT, PTT, MG 1, CBC #### [facility] - [address] [address] Hemoglobin (Bld) [Mass/Vol] 15.8 g/dL Normal 13.5-17.5 [facility] Comment on above: Performed By: #### C MP, DD, CPK 1, PT, PTT, MG 1, CBC #### [facility] - [address] [address] Immature granulocytes (Bld) [#/Vol] 0.05 10*3/uL Normal 0.00-0.30 [facility] Comment on above: Performed By: #### C MP, DD, CPK 1, PT, PTT, MG 1, CBC #### [facility] - [address] [address] Immature granulocytes/100 WBC (Bld) 0.4 % Normal 0-1.6 [facility] Comment on above: Result Comment: The IG parameter is the percentage of metamyelocytes, myelocytes, and promyelocytes. An immature granulocyte count (IG) of 1% or more suggests the possibility of infection, and IG count of 3% is very likely related to an infection. Performed By: #### C MP, DD, CPK 1, PT, PTT, MG 1, CBC #### [facility] - [address] [address] Lymphocytes (Bld) [#/Vol] 4.49 10*3/uL High 0.90-4.00 [facility] Comment on above: Performed By: #### C MP, DD, CPK 1, PT, PTT, MG 1, CBC #### [facility] - [address] [address] Lymphocytes/100 WBC (Bld) 34.2 % Normal [facility] Comment on above: Performed By: #### C MP, DD, CPK 1, PT, PTT, MG 1, CBC #### [facility] - [address] [address] MCH (RBC) [Entitic mass] 29.4 pg Normal 26.0-34.0 [facility] Comment on above: Performed By: #### C MP, DD, CPK 1, PT, PTT, MG 1, CBC #### [facility] [address] [place] [address] MCHC (RBC) [Mass/Vol] 35.5 g/dL Normal 31.0-37.0 [facility] Comment on above: Performed By: #### C MP, DD, CPK 1, PT, PTT, MG 1, CBC #### [facility] [address] [place] [address] MCV (RBC) [Entitic vol] 83 fL Normal 80-100 [facility] Comment on above: Performed By: #### C MP, DD, CPK 1, PT, PTT, MG 1, CBC #### [facility] [address] [place] [address] Monocytes (Bld) [#/Vol] 1.45 10*3/uL High 0.30-0.90 [facility] Comment on above: Performed By: #### C MP, DD, CPK 1, PT, PTT, MG 1, CBC #### [facility] - [address] [address] Monocytes/100 WBC (Bld) 11.1 % Normal [facility] Comment on above: Performed By: #### C MP, DD, CPK 1, PT, PTT, MG 1, CBC #### [facility] - [address] [address] Neutrophils (Bld) [#/Vol] 6.86 10*3/uL Normal 1.70-7.00 [facility] Comment on above: Performed By: #### C MP, DD, CPK 1, PT, PTT, MG 1, CBC #### [facility] - [address] [address] Neutrophils/100 WBC (Bld) 52.4 % Normal [facility] Comment on above: Performed By: #### C MP, DD, CPK 1, PT, PTT, MG 1, CBC #### [facility] - [address] [address] Nucleated RBC (Bld) [#/Vol] 0.00 10*3/uL Normal 0-0 [facility] Comment on above: Performed By: #### C MP, DD, CPK 1, PT, PTT, MG 1, CBC #### [facility] [address] [place] [address] Nucleated RBC/100 WBC (Bld) [Ratio] 0.0 % Normal [facility] Comment on above: Performed By: #### C MP, DD, CPK 1, PT, PTT, MG 1, CBC #### [facility] - [facility] [address] Platelet mean volume (Bld) [Entitic vol] 10.8 fL Normal 9.4-12.4 [facility] Comment on above: Performed By: #### C MP, DD, CPK 1, PT, PTT, MG 1, CBC #### [facility] [place], [place] [address] Platelets (Bld) [#/Vol] 185 10*3/uL Normal 150-400 [facility] Comment on above: Performed By: #### C MP, DD, CPK 1, PT, PTT, MG 1, CBC #### [facility] - [address] [address] RBC (Bld) [#/Vol] 5.38 10*6/uL Normal 4.50-5.90 [facility] Comment on above: Performed By: #### C MP, DD, CPK 1, PT, PTT, MG 1, CBC #### [facility] - [facility] [address] RDW STD DEVIATION 36.3 fL Normal [facility] Comment on above: Performed By: #### C MP, DD, CPK 1, PT, PTT, MG 1, CBC #### [facility] - [address] [address] WBC (Bld) [#/Vol] 13.1 10*3/uL High 4.5-11.0 [facility] Comment on above: Performed By: #### C MP, DD, CPK 1, PT, PTT, MG 1, CBC #### [facility] [place], [place] [address] COMPREHENSIVE METABOLIC PANE Franki 07-28-2024 Albumin [Mass/Vol] 4.3 g/dL Normal 3.9-5.0 [facility] Comment on above: Performed By: #### C MP, DD, CPK 1, PT, PTT, MG 1, CBC #### [place] [facility] [place] [id number] Albumin/Globulin [Mass ratio] 1.5 {ratio} Normal 1.1-1.8 [facility] Comment on above: Performed By: #### C MP, DD, CPK 1, PT, PTT, MG 1, CBC #### [facility] [address] [place] [address] ALP [Catalytic activity/Vol] 86 U/L Normal 43-122 [facility] Comment on above: Performed By: #### C MP, DD, CPK 1, PT, PTT, MG 1, CBC #### Main [facility] - [address] [address] ALT [Catalytic activity/Vol] 30 U/L Normal 7-56 [facility] Comment on above: Performed By: #### C MP, DD, CPK 1, PT, PTT, MG 1, CBC #### [facility] - [address] [address] Anion gap [Moles/Vol] 15 mmol/L Normal 9-18 [facility] Comment on above: Performed By: #### C MP, DD, CPK 1, PT, PTT, MG 1, CBC #### [facility] - [address] [id number] AST [Catalytic activity/Vol] 24 U/L Normal 14-50 [facility] Comment on above: Performed By: #### C MP, DD, CPK 1, PT, PTT, MG 1, CBC #### [facility] - [address] [address] Bilirubin [Mass/Vol] 0.6 mg/dL Normal 0.2-1.3 [facility] Comment on above: Performed By: #### C MP, DD, CPK 1, PT, PTT, MG 1, CBC #### [facility] - [address] [address] BUN/CREATININE RATIO 23.0 Ratio Normal 5.0-42.0 [facility] Comment on above: Performed By: #### C MP, DD, CPK 1, PT, PTT, MG 1, CBC #### Main Lab - [address] [address] Calcium [Mass/Vol] 9.3 mg/dL Normal 8.4-10.2 [facility] Comment on above: Performed By: #### C MP, DD, CPK 1, PT, PTT, MG 1, CBC #### [facility] - [address] [address] Chloride [Moles/Vol] 100 mmol/L Normal 98-107 [facility] Comment on above: Performed By: #### C MP, DD, CPK 1, PT, PTT, MG 1, CBC #### Main Lab - [facility] [address] [place], [place] [address] CO2 [Moles/Vol] 22 mmol/L Normal 22-31 [facility] Comment on above: Performed By: #### C MP, DD, CPK 1, PT, PTT, MG 1, CBC #### Main Lab - [facility] [address] [place] [address] Creatinine [Mass/Vol] 1.00 mg/dL Normal 0.80-1.30 [facility] Comment on above: Performed By: #### C MP, DD, CPK 1, PT, PTT, MG 1, CBC #### Main Lab - [facility] [address] [place] [address] ESTIMATED CREAT CLEARANCE 115.73 Normal [facility] Comment on above: Result Comment: COCK CROFT-GAULT FORMULA 1973 Performed By: #### C MP, DD, CPK 1, PT, PTT, MG 1, CBC #### Main Lab - [facility] [address] [place] [address] ESTIMATED GLOMERULAR FILT RATE 95 mL/min Normal [facility] Comment on above: Result Comment: eGFR is calculated using the 2020 CKD-EPI creatinine equation Performed By: #### C MP, DD, CPK 1, PT, PTT, MG 1, CBC #### Main Lab - [facility] [place], [place] [address] Globulin (S) [Mass/Vol] 2.9 g/dL Normal [facility] Comment on above: Performed By: #### C MP, DD, CPK 1, PT, PTT, MG 1, CBC #### Main Lab - [facility] [place], [place] [address] Glucose [Mass/Vol] 342 mg/dL High 70-99 [facility] Comment on above: Result Comment: The glucose range is based on recommendations from the [place] [employer] for fasting blood glucose range. Performed By: #### C MP, DD, CPK 1, PT, PTT, MG 1, CBC #### Main Lab - [facility] [address] [place] [address] Potassium [Moles/Vol] 3.5 mmol/L Low 3.6-5.0 [facility] Comment on above: Performed By: #### C MP, DD, CPK 1, PT, PTT, MG 1, CBC #### Main Lab - [facility] [address] [place], [place] [address] Protein [Mass/Vol] 7.2 g/dL Normal 6.3-8.2 [facility] Comment on above: Performed By: #### C MP, DD, CPK 1, PT, PTT, MG 1, CBC #### Main Lab - [facility] [address] [place], [place] [address] Sodium [Moles/Vol] 133 mmol/L Low 137-145 [facility] Comment on above: Performed By: #### C MP, DD, CPK 1, PT, PTT, MG 1, CBC #### Main Lab - [facility] [address] [place], [place] [address] Urea nitrogen [Mass/Vol] 23 mg/dL High 7-21 [facility] Comment on above: Performed By: #### C MP, DD, CPK 1, PT, PTT, MG 1, CBC #### Main Lab - [facility] [address] [place], [place] [address] AGE,PATIENT 44 Years Normal [facility] Comment on above: Performed By: #### C MP, DD, CPK 1, PT, PTT, MG 1, CBC #### Main Lab - [facility] [address] [place], [place] [address] CREATINE KINASEon 07-28-2024 CK [Catalytic activity/Vol] 423 U/L High 55-170 [facility] Comment on above: Performed By: #### C MP, DD, CPK 1, PT, PTT, MG 1, CBC #### Main Lab - [facility] [address] [place] [address] Calcium [Mass/volume] in Ser um or Plasmaon 07-28-2024 Calcium [Mass/Vol] 9.3 mg/dL 8.4-10.2 [facility] Work Phone: Carbon dioxide, total [Moles /volume] in Serum or Plasmaon 07-28-2024 CO2 [Moles/Vol] 22 mmol/L 22-31 [facility] Work Phone: Chloride [Moles/volume] in S vaughn or Plasmaon 07-28-2024 Chloride [Moles/Vol] 100 mmol/L 98-107 [facility] Work Phone: Creatinine [Mass/volume] in Serum or Plasmaon 07-28-2024 Creatinine [Mass/Vol] 1.00 mg/dL 0.80-1.30 [facility] Work Phone: D-DIMERon 07-28-2024 D-DIMER < 0.27 Normal 0.00-0.50 [facility] Comment on above: Result Comment: The D-Dimer assay can be used to assist in the diagnosis of venous thromboembolism. For the assay in use at [facility]), a D-Dimer cutoff of <0.50 ug/mL FEU has a negative predictive value of 99% for all patients suspected of venous thromboembolism. Performed By: #### C MP, DD, CPK 1, PT, PTT, MG 1, CBC #### Main Lab - [address] [address] ED Physician Documentationon 07-28-2024 ED Physician Documentation [address] [address] Physician Documentation Signed:[id number] Name: DENVER HOLLINGSWORTH MRUN: [id number] : 1980 Loc: ED Age / Sex: 44/ M Adm Status: DEP ER Adm Date:07/28/24 Room/Bed: Disposition Decision - General Final diagnosis: Chest pain Qualifiers: Chest pain type: unspecified Qualified Code(s): R07.9 - Chest pain, unspecified Condition: Stable Instructions: ED Chest Pain, Uncertain Cause Referrals: [facility] [Provider Group] - 2 Days, If No Improvement HPI: Chest Pain - Time Seen by Provider Time Seen by Provider: 07/28/24 01:02 - General Information Information source:: Patient - History of Present Illness Chief complaint: Chest Pain Initial narrative: Patient is a 44-year-old gentleman that was brought in by EMS after he began to develop sharp, substernal chest pain, nonradiating, not associate with nausea or vomiting, started approximate hour prior to arrival. 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 Patient suspects it is more anxiety driven as he is undergoing a divorce at this time. Denies a previous history of coronary artery disease, but the patient is an uncontrolled diabetic and hypertensive. - Associated Symptoms/Injuries Angina symptoms: denies: Vomiting, Diaphoresis, Dyspnea, Sense of Impending Doom Associated symptoms: denies: Fever, Cough, Hemoptysis, Abdominal Pain, Back Pain, Dizziness, Syncope, Leg Swelling, Palpitations, Rash, Acid Taste in Mouth, Burping - Allergies/Adverse Reactions Allergies/Adverse reactions: Allergies Allergy/AdvReac Type Severity Reaction Status Date / Time acetaminophen [From Vicodin] Allergy Confusion Verified 07/28/24 00:40 hydrocodone [From Vicodin] Allergy Confusion Verified 07/28/24 00:40 Past Medical History - Social History Smoking status: Current Every day smoker Current tobacco user or use within the last year?: Yes Type of tobacco used: Cigarettes Amount used: 1/2 PACK Second hand smoke exposure?: No Alcohol use- current or past use: No Substance use - current or past: No Does patient currently use electronic cigarettes?: No Are you currently using medical marijuana?: No Review of Systems .: All 10 Systems Reviewed Negative Unless Otherwise Stated in the HPI .: I have reviewed available Ancillary/Nursing Staff documentation. General Exam - Other Other exam information: PHYSICAL EXAM: GENERAL: Alert and oriented x4, no acute distress HEET: Normocephalic/atraumatic , EOMI/PERRLA, normal conjuctiva bilaterally, oropharynx moist without exudate or lesion, NECK: no appreciable lymphadenopathy, no goiter or bruit noted CARDIOVASCULAR: Regular rate and rhythm, no appreciable murmurs RESPIRATORY: Clear to auscultation bilaterally, easy respiratory effort ABDOMINAL: Nontender, nondistended, normal active bowel sounds EXTREMITIES: No appreciable cyanosis, clubbing in the extremities bilaterally. No edema in bilateral lower extremities appreciated. MUSCULOSKELETAL: Strength 5 out of 5 in the upper extremity bilaterally. Strength 5/5 in lower extremities bilaterally SKIN: No visible appreciable rashes or lesions. NEUROLOGICAL: Cranial nerves II through XII appear grossly intact, no focal deficits PSYCHIATRIC: Mood and affect appear to be normal. No abnormal movements noted. Good eye contact, normal insight and judgment MDM: Chest Pain - Differential Diagnosis Diff Dx: Chest Pain: STEMI, Non-STEMI, Angina - Stable, Angina - Unstable, Atypical Chest Pain, Biliary Colic, Chest Wall Pain, GI Disease, Pleural Effusion, Rib Fracture, Pulmonary Edema, Pulmonary Embolism - Nursing Notes Nursing notes reviewed: Yes - Medical Records Medical records reviewed: Yes - Lab Data Lab results reviewed: Yes Result diagrams: 07/28/24:07/28/24:30 Lab results narrative: Lab Results 07/28/24 07/28/24 07/28/24 Range/Units 01:30 01:30 01:30 WBC 13.1 H (4.5-11.0) K/mcL RBC 5.38 (4.50-5.90) M/mcL Hgb 15.8 (13.5-17.5) g/dL Hct 44.5 (41.0-53.0) % MCV 83 (80-100) fL MCH 29.4 (26.0-34.0) pg MCHC 35.5 (31.0-37.0) g/dL RDW 12.0 (11.6-14.8) % RDW Std Deviation 36.3 fL Plt Count 185 (150-400) K/mcL MPV 10.8 (9.4-12.4) fL Immature Gran % (Auto) 0.4 (0-1.6) % Neut % (Auto) 52.4 % Lymph % (Auto) 34.2 % Meriwether % (Auto) 11.1 % Eos % (Auto) 1.4 % Baso % (Auto) 0.5 % Neut # (Auto) 6.86 (1.70-7.00) K/mcL Lymph # (Auto) 4.49 H (0.90-4.00) K/mcL Meriwether # (Auto) 1.45 H (0.30-0.90) K/mcL Eos # (Auto) 0.19 (0.00-0.50) K/mcL Baso # (Auto) 0.07 (0.00-0.30) K/mcL Immature Gran # (Auto) 0.05 (0.00-0.30) K/mcL Absolute Nucleated RBC 0.00 (0-0) K/mcL Nucleated RBC % 0.0 % PT 13.9 (11.3-14.8 (more content not included)... Normal [facility] Eosinophils Auto (Bld) [#/Vo l]on 07-28-2024 Eosinophils (Bld) [#/Vol] 0.19 10*3/uL 0.00-0.50 [facility] Work Phone: Eosinophils/100 WBC Auto (Bl d)on 07-28-2024 Eosinophils/100 WBC (Bld) 1.4 % [facility] Work Phone: Erythrocyte distribution wid th Auto (RBC) [Entitic vol]on 07-28-2024 Erythrocyte distribution width (RBC) [Entitic vol] 36.3 fL [facility] Work Phone: Erythrocyte distribution wid th Auto (RBC) [Ratio]on 07-28-2024 Erythrocyte distribution width (RBC) [Ratio] 12.0 % 11.6-14.8 [facility] Work Phone: Fibrin D-dimer FEU measureme nt in platelet poor plasma (mass/volume)on 07-28-2024 Fibrin D-dimer FEU (PPP) [Mass/Vol] < 0.27 ug/mL 0.00-0.50 [facility] Work Phone: Comment on above: The D-Dimer assay ca n be used to assist in the diagnosis of venous thromboembolism. For the assay in use at [facility]), a D-Dimer cutoff of <0.50 ug/mL FEU has a negative predictive value of 99% for all patients suspected of venous thromboembolism. Globulin [Mass/volume] in Se rumon 07-28-2024 Globulin (S) [Mass/Vol] 2.9 g/dL [facility] Work Phone: Glucose [Mass/volume] in Ser um or Plasmaon 07-28-2024 Glucose [Mass/Vol] 342 mg/dL 70-99 [facility] Work Phone: Comment on above: The glucose range is based on recommendations from the [place] [employer] for fasting blood glucose range. Hematocrit Auto (Bld) [Volum e fraction]on 07-28-2024 Hematocrit (Bld) [Volume fraction] 44.5 % 41.0-53.0 [facility] [employer] Phone: Hemoglobin [Mass/volume] in Bloodon 07-28-2024 Hemoglobin (Bld) [Mass/Vol] 15.8 g/dL 13.5-17.5 [facility] [employer] Work Phone: INR in Platelet poor plasma by Coagulation assayon 07-28-2024 INR Coag (PPP) [Relative time] 1.0 {INR} [facility] [employer] Phone: Comment on above: RECOMMENDED RANGES F OR INR: Therapeutic range for standard therapy INR: 2.0-3.0 Therapeutic range for high dose therapy INR: 2.5-3.5 Immature granulocytes Auto ( Bld) [#/Vol]on 07-28-2024 Immature granulocytes (Bld) [#/Vol] 0.05 10*3/uL 0.00-0.30 [facility] [employer] Work Phone: Immature granulocytes/100 WB C Auto (Bld)on 07-28-2024 Immature granulocytes/100 WBC (Bld) 0.4 % 0-1.6 [facility] [employer] Phone: Comment on above: The IG parameter is the percentage of metamyelocytes, myelocytes, and promyelocytes. An immature granulocyte count (IG) of 1% or more suggests the possibility of infection, and IG count of 3% is very likely related to an infection. Laboratory - Chemistry and C hemistry - challengeon 07-28-2024 GFR/1.73 sq M.predicted among non-blacks MDRD (S/P/Bld) [Vol rate/Area] 95 mL/min/{1.73_m2} [facility] [employer] Phone: Comment on above: eGFR is calculated u sing the 2020 CKD-EPI creatinine equation Lymphocytes Auto (Bld) [#/Vo l]on 07-28-2024 Lymphocytes (Bld) [#/Vol] 4.49 10*3/uL 0.90-4.00 [facility] [employer] Work Phone: Lymphocytes/100 WBC Auto (Bl d)on 07-28-2024 Lymphocytes/100 WBC (Bld) 34.2 % [facility] [employer] Work Phone: MAGNESIUMon 07-28-2024 Magnesium [Mass/Vol] 1.8 mg/dL Normal 1.7-2.2 [facility] Comment on above: Performed By: #### C MP, DD, CPK 1, PT, PTT, MG 1, CBC #### Main Lab - [facility] [address] [place] [address] MCH Auto (RBC) [Entitic mass ]on 07-28-2024 MCH (RBC) [Entitic mass] 29.4 pg 26.0-34.0 [facility] [employer] Work Phone: MCHC Auto (RBC) [Mass/Vol]on 07-28-2024 MCHC (RBC) [Mass/Vol] 35.5 g/dL 31.0-37.0 [facility] [employer] Work Phone: MCV Auto (RBC) [Entitic vol] on 07-28-2024 MCV (RBC) [Entitic vol] 83 fL 80-100 [facility] [employer] Work Phone: Monocytes Auto (Bld) [#/Vol] on 07-28-2024 Monocytes (Bld) [#/Vol] 1.45 10*3/uL 0.30-0.90 [facility] [employer] Work Phone: Monocytes/100 WBC Auto (Bld) on 07-28-2024 Monocytes/100 WBC (Bld) 11.1 % [facility] [employer] Work Phone: Neutrophils Auto (Bld) [#/Vo l]on 07-28-2024 Neutrophils (Bld) [#/Vol] 6.86 10*3/uL 1.70-7.00 [facility] [employer] Work Phone: Neutrophils/100 WBC Auto (Bl d)on 07-28-2024 Neutrophils/100 WBC (Bld) 52.4 % [facility] [employer] Work Phone: Nucleated RBC Auto (Bld) [#/ Vol]on 07-28-2024 Nucleated RBC (Bld) [#/Vol] 0.00 10*3/uL 0-0 [facility] [employer] Work Phone: Nucleated RBC/100 WBC Auto ( Bld) [Ratio]on 07-28-2024 Nucleated RBC/100 WBC (Bld) [Ratio] 0.0 % [facility] [employer] Work Phone: PARTIAL THROMBOPLASTIN TIMEo n 07-28-2024 aPTT Coag (Bld) [Time] 28.7 s Normal 24.1-41.2 [facility] Comment on above: Performed By: #### C MP, DD, CPK 1, PT, PTT, MG 1, CBC #### Main Lab - [facility] [address] [place] [address] PT WITH INRon 07-28-2024 INR Coag (PPP) [Relative time] 1.0 {INR} Normal [facility] Comment on above: Result Comment: ANDREAS MMENDED RANGES FOR INR: Therapeutic range for standard therapy INR: 2.0-3.0 Therapeutic range for high dose therapy INR: 2.5-3.5 Performed By: #### C MP, DD, CPK 1, PT, PTT, MG 1, CBC #### Main Lab - [facility] [place], [place] [address] PT Coag (PPP) [Time] 13.9 s Normal 11.3-14.8 [facility] Comment on above: Performed By: #### C MP, DD, CPK 1, PT, PTT, MG 1, CBC #### Main Lab - [facility] [address] [place] [address] Platelet mean volume Auto (B ld) [Entitic vol]on 07-28-2024 Platelet mean volume (Bld) [Entitic vol] 10.8 fL 9.4-12.4 [facility] [employer] Work Phone: Platelets Auto (Bld) [#/Vol] on 07-28-2024 Platelets (Bld) [#/Vol] 185 10*3/uL 150-400 [facility] [employer] Work Phone: Potassium [Moles/volume] in Serum or Plasmaon 07-28-2024 Potassium [Moles/Vol] 3.5 mmol/L 3.6-5.0 [facility] [employer] Work Phone: Protein [Mass/volume] in Ser um or Plasmaon 07-28-2024 Protein [Mass/Vol] 7.2 g/dL 6.3-8.2 [facility] [employer] Work Phone: Prothrombin time (PT) in Blo od by Coagulation assayon 07-28-2024 PT Coag (Bld) [Time] 13.9 s 11.3-14.8 [facility] [employer] Phone: RBC Auto (Bld) [#/Vol]on RBC (Bld) [#/Vol] 5.38 10*6/uL 4.50-5.90 [facility] [employer] Work Phone: Serum or plasma alanine porras otransferase measurement (enzymatic activity/volume)on 07-28-2024 ALT [Catalytic activity/Vol] 30 U/L 7-56 [facility] [employer] Phone: Serum or plasma alkaline kelly sphatase measurement (enzymatic activity/volume)on 07-28-2024 ALP [Catalytic activity/Vol] 86 U/L 43-122 [facility] [employer] Phone: Serum or plasma creatine kin ase measurement (enzymatic activity/volume)on 07-28-2024 CK [Catalytic activity/Vol] 423 U/L 55-170 [facility] [employer] Work Phone: Serum or plasma magnesium me asurement (mass/volume)on 07-28-2024 Magnesium [Mass/Vol] 1.8 mg/dL 1.7-2.2 [facility] [employer] Phone: Serum or plasma troponin i.c ardiac measurement (mass/volume)on 07-28-2024 Troponin I.cardiac [Mass/Vol] ng/mL Normal 0.0-0.03 [facility] [employer] Phone: Comment on above: Reference Interval < or = 0.03 ng/mLClinical Correlation Needed 0.03 - 0.11 ng/mLAMI Cutoff, Presumptive = or > 0.12 ng/mL Result Comment: Refe rence Interval < or = 0.03 ng/mL Clinical Correlation Needed 0.03 - 0.11 ng/mL AMI Cutoff, Presumptive = or > 0.12 ng/mL Performed By: #### T ROP 1 #### Main Lab - [facility] [address] [place], [place] [address] Serum or plasma urea nitroge n measurement (mass/volume)on 07-28-2024 Urea nitrogen [Mass/Vol] 23 mg/dL 7-21 [facility] Work Phone: Sodium [Moles/volume] in Ser um or Plasmaon 07-28-2024 Sodium [Moles/Vol] 133 mmol/L 137-145 [facility] Work Phone: TROPONIN Ion 07-28-2024 Troponin I.cardiac [Mass/Vol] ng/mL Normal 0.0-0.03 [facility] Comment on above: Result Comment: Refe rence Interval < or = 0.03 ng/mL Clinical Correlation Needed 0.03 - 0.11 ng/mL AMI Cutoff, Presumptive = or > 0.12 ng/mL Performed By: #### T ROP 1 #### Main Lab - [facility] [address] [place], [place] [address] Urea/Creatinine [Mass Ratio] in Serum or Plasmaon 07-28-2024 Urea/Creatinine [Mass ratio] 23.0 Ratio 5.0-42.0 [facility] Work Phone: WBC Auto (Bld) [#/Vol]on WBC (Bld) [#/Vol] 13.1 10*3/uL 4.5-11.0 [facility] Work Phone: XR CHEST, ONE VIEWon 025 XR CHEST, ONE VIEW [facility] [address] [place] [address] Diagnostic Imaging Report : [id number] Signed Name: DENVER HOLLINGSWORTH MRUN: [id number] : 1980 Loc: ED Age / Sex: 44 / M ADM Status: REG ER ADM Date: 07/28/24 Room/Bed: Ordering Physician: Ronal Duong MD Procedure: XR CHEST, ONE VIEW Order Number(s): [id number] Ordered Date: 07/28/24 Ordered Time: 101 EXAMINATION: ONE XRAY VIEW OF THE CHEST 07/28/2024 1:59 am COMPARISON: None. HISTORY: chest pain FINDINGS: Normal cardiomediastinal silhouette. Lungs clear. No pneumothorax or effusion. Body wall soft tissues unremarkable. Osseous thorax intact. IMPRESSION: No acute cardiopulmonary process. Dictated By: Sravan Arias MD Dictated Date/Time: 07/28/24213 Signed By: Sravan Arias MD, MD Signed Date/Time: 07/28/24216 Transcribed Date/Time: 07/28/24213 Normal [facility] Chest PA and Lateralon 05-08 Chest PA and Lateral [facility] Imaging Services [address] [place] [id number] Chest PA and Lateral MR#: [id number] Acct: [id number] Name: DENVER HOLLINGSWORTH Rep #: [id number] : 1980 M 43 From: González bermudez MD PCP: Dr. Michelle Jane MD Status: REG ER Study: Chest PA and Lateral Date of Exam: 05/08/24 Exam# [id number] Ordering Dr: Meagan Ferrari [id number] STUDY: X-RAY CHEST REASON FOR EXAM: Male, 43 years old. cough TECHNIQUE: Frontal and lateral views of the chest. COMPARISON: 12/02/2020.. FINDINGS: The lungs are clear and expanded. [...] chest. Electronically Signed: González Styles MD at 16:28 EST , CC: Dr. Michelle Jane MD; XI Estrella Supervisor Metalizing: Signed Normal [facility] Emergency Department Summary on 05-08-2024 Emergency Department Summary [facility] Medical Records Department [address] [place] [id number] Emergency Department Summary 05/08/24 MR#: [id number] Acct: [id number] Name: DENVER HOLLINGSWORTH Rep #: [id number] : 1980 43 From: Meagan LAYNE PCP: Dr. Michelle Jane MD Status:DEP ER Location: ED HPI History of Present Illness Chief Complaint: Cough Narrative Narrative: Patient presenting today with a cough he has had over the past 16 days. He is here with his significant other who has been sick with similar symptoms. He reports that over the last few days his symptoms have been worse. He has had intermittent sweats and chills but is not sure if he has had a fever. He has a PMH of HTN, HLD, and T2DM. [facility] Medical History Degenerative disc disease Diabetes mellitus Hyperlipemia Hypertension Home Medications ???Medication ???Instructions ???Recorded ???Last Taken ???Type metformin 500 mg tablet,extended 1,000 mg PO BID 03/11/18 05/19/18 History release 24 hr (Glucophage XR) lisinopril 10 mg tablet 20 mg PO DAILY hypertension 11/27/18 11/26/18 History insulin glargine 100 unit/mL (3 50 units subcut BID 07/31/18 Unknown History mL) subcutaneous pen (Lantus Solostar U-100 Insulin) atorvastatin 20 mg tablet 20 mg PO DAILY 10/26/18 Unknown History dulaglutide 0.75 mg/0.5 mL 0.75 mg subcut WE 12/12/21 Unknown History subcutaneous pen injector (Trulicity) insulin lispro 100 unit/mL 12 unit subcut TID 12/12/21 Unknown History subcutaneous pen insulin lispro 100 unit/mL subcut 12/12/21 Unknown History subcutaneous pen lurasidone 40 mg tablet (Latuda) 40 tab PO DAILY 12/12/21 Unknown History ondansetron 4 mg disintegrating 4 mg PO Q8H PRN PRN Nausea #10 tabs 12/12/21 Unknown Rx tablet oxcarbazepine 300 mg tablet 300 tab PO BID 12/12/21 Unknown History (Trileptal) sertraline 50 mg tablet 50 tab PO DAILY 12/12/21 Unknown History naproxen 500 mg tablet 500 mg PO BID PRN pain #20 tabs 05/06/23 Unknown Rx naproxen 500 mg tablet (Naprosyn) 500 mg PO BID PRN pain #20 tabs 11/28/23 Unknown Rx Allergy/AdvReac Type Severity Reaction Status Date / Time hydrocodone bitartrate (From AdvReac Nausea Verified 05/08/24 15:56 Vicodin) Surgical History History of cholecystectomy Social History Smoking Status: Current every day smoker tobacco type: cigarettes ROS ROS ED Constitutional Constitutional ED: Reports chills and sweats Cardiovascular Cardiovascular: Denies chest pain Respiratory/Chest Respiratory/Chest: Reports cough; Denies dyspnea or tachypnea Gastrointestinal Gastrointestinal: Denies abdominal pain, nausea or vomiting Musculoskeletal Musculoskeletal: Denies arthralgias or myalgias Integumentary Denies rash Neurologic Neurologic: Denies weakness EXAM Physical Exam Const Vital Signs: 05/08/24 15:55 Temperature 98.7 F Temperature Source Oral Pulse Rate 87 Respiratory Rate 18 Blood Pressure 156/105 H Blood Pressure Mean 122 Pulse Ox 97 Oxygen Delivery Method Room Air Positive well nourished, well developed and no apparent distress General Appearance ED: well developed HEENT Reports normocephalic and head/scalp atraumatic HEENT Narrative: Posterior pharynx is clear Mouth ED: Yes moist mucous membranes normal Eyes PERRL and EOMs intact bilaterally Neck full ROM and supple Chest Wall inspection of chest normal Resp normal respiratory effort and clear to auscultation bilaterally Cardio regular rate and regular rhythm Back/Spine normal ROM and normal to inspection Extremity normal to inspection and full ROM Neuro oriented x3, CN's II-XII intact bilaterally, moves all extremities, no focal motor deficits and no sensory deficits noted Sensorium / Orientation: awake and alert Psych mental status grossly normal and thought process normal Skin no rashes or lesions noted and no wounds Physical Exam Const Vital Signs: 05/08/24 15:55 Temperature 98.7 F Temperature Source Oral Pulse Rate 87 Respiratory Rate 18 Blood Pressure 156/105 H Blood Pressure Mean 122 Pulse Ox 97 Oxygen Delivery Method Room Air MDM MDM MDM Narrative Medical decision making narrative: Patient presenting today with a cough that he has had over the past 16 days, his significant other in the room has been sick with similar symptoms. He is nontoxic-appearing, he is afebrile, O2 saturation is 97% on room air. Chest x-ray will be obtained to rule out pneumonia and is negative as interpreted by the attending ED physician. I do suspec (more content not included)... Normal [facility] HISTORY PHYSICALon HISTORY PHYSICAL HNO ID: [id number] Author: IAIN NGUYỄN MD Service: Pain Management Author Type: Physician Type: H&P Filed: 04/14/2024 08:49 Note Text: HISTORY AND PHYSICAL EXAMINATION PATIENT NAME: Denver Hollingsworth DATE of SERVICE: 04/14/2024 Denver Hollingsworth is here for the pain mangement procedure. The patients presents with persistent pain complaints. Denver Hollingsworth denies any interval changes or new pain complaints or focal neurologic deficits. 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 of hyperactivity diagnosed in childhood Back pain 02/12/2012 Bile acid esophageal reflux 11/14/2022 Bipolar disorder (HCC) Chronic post-traumatic headache Closed fracture of dorsal (thoracic) vertebra without mention of spinal cord injury 04/03/2012 Corns and callosities 12/05/2009 Depressive disorder, not elsewhere classified 06/10/2012 DIABETES MELLITUS TYPE II-UNCOMPL 08/30/2008 Dysmetabolic syndrome X 07/21/2008 Gastroesophageal reflux disease with esophagitis Hydronephrosis 11/13/2022 Mild right Nonspecific abnormal results of liver function study 04/06/2005 Ferritin 225, HBsAg and Hep C negative in 10-30 /S Fatty Liver BERYL (obstructive sleep apnea) DME [facility] Respiratory Pain in joint, lower leg 06/05/2012 Right testicular pain 09/15/2021 Substance abuse (HCC) Tobacco use Unspecified essential hypertension 08/30/2008 PAST SURGICAL HISTORY Procedure Laterality Date CHOLECYSTECTOMY 2017 COLONOSCOPY 07/29/2013 Normal COLONOSCOPY 11/29/2022 EAR TUBES HX EGD 11/29/2022 ESOPHAGOGASTRODUODENOSCO PY TRANSORAL DIAGNOSTIC 07/29/2013 H Pylori Gastritis, Gastric cardia type mucosa w/chronic inflammation UNSPECIFIED ORAL SURGERY PROCEDURE, BY REPORT tooth extraction. Social History Tobacco Use Smoking status: Every Day Current packs/day: 1.00 Average packs/day: 1 pack/day for 28.7 years (28.7 ttl pk-yrs) Types: Cigarettes Start date: 08/11/1995 Smokeless tobacco: Never Vaping Use Vaping status: Never Used Substance Use Topics Alcohol use: No Drug use: Not Currently Types: Cocaine Comment: reports a history of cocaine use - last use 03/14/2019 FAMILY HISTORY Problem Relation Age of Onset Hypertension Mother COPD Mother Diabetes Father Coronary Artery Disease Father Bypass surgery and [place] 2012 Heart Father Heart Brother other (Diverticulitis) Brother Primary Biliary Cirrhosis Brother No Known Problems Maternal Grandmother Cancer Maternal Grandfather unknown No Known Problems Paternal Grandmother Diabetes Paternal Grandfather Colon Cancer No Family History Anesthesia Problems No Family History ALLERGIES Allergen Reactions Hydrocodone Bitartr* GI Upset Trulicity [Dulaglut* Contraindication-Medical Surgical GASTROPARESIS, cannot use GLP1 Fibrate Anti-Lipide* Myalgia Current Facility-Administered Medications Medication Dose Route Frequency NaCl 0.9% iv infusion 30 mL/hr INTRAVENOUS CONTINUOUS Physical Exam: Performed in conjunction with observation. The patient is alert and oriented x3. The patient is in no acute distress. Neck: Supple. The range of motion is intact. Lungs: clear CVR: RRR. Extremities: no reported edema or erythema. Examination indicates no changes Impression: Discogenic back pain Plan: The informed consent has been obtained. The plan is to proceed with the procedure as planned. SIGNATURE: Iain Nguyễn MD DATE: April 14, 2024 TIME: 8:49 AM [facility] OPERATIVE NOon 04-14-2024 OPERATIVE NO HNO ID: [id number] Author: IAIN NGUYỄN MD Service: Pain Management Author Type: Physician Type: Operative Report Filed: 04/14/2024 09:34 Note Text: PATIENT NAME: Denver Hollingsworth SERVICE DATE: 04/14/2024 PROCEDURE NOTE PREOPERATIVE DIAGNOSIS(ES) Lumbar DDD Lumbar disc displacement Lumbar radiculopathy POSTOPERATIVE DIAGNOSIS(ES): Same PROCEDURE: L4-5 interlaminar epidural steroid injection under fluoroscopy. [facility] Director(s): None, I performed the entire procedure. ANESTHESIA: Local SEDATION: Moderate Sedation; midazolam 2mg IV, ASA status II, normal airway, chest excursion and heart rate. Airway reassessed immediately prior to medication administration, and IV sedation was administered incrementally to allow the patient to remain comfortable and conversant throughout the procedure. Sedation Start Time: 9:22 AM Sedation End Time: 9:27 AM INDICATIONS: Denver Hollingsworth presents for lumbar epidural steroid injection. The patient denies any new pain complaints and denies any focal neurological deficits. The plan is to proceed with lumbar intralaminar epidural steroid injection. The risks and benefits discussed in the office were reviewed. The patient expressed understanding the risks and benefits and informed consent was obtained. OPERATIVE PROCEDURE: The patient was brought to the operating room. The patient was placed in the prone position with pressure points protected. Continuous hemodynamic monitoring was initiated including blood pressure, EKG, and pulse oximetry. Supplemental oxygen per nasal canula was started. The intravenous medication was administered incrementally to provide conscious sedation and to allow the patient to remain comfortable and conversant throughout the procedure. The lower back was prepped in sterile fashion. Upon AP projection under fluoroscopy, L4-5 level was identified. Entry point was marked and anesthetized with 5 ml of 0.5% Lidocaine. This was followed by insertion of an 18-gauge epidural Tuohy needle, which was inserted and advanced using a loss of resistance technique. Once the epidural space was encountered, aspiration was performed which was negative for blood or CSF. This was followed by injection of 0.2 ml of Omnipaque 300, which revealed a spread along the posterior epidural space. There was no evidence of intravascular or intrathecal flow. This was then followed by a total injection of 5 mL of 0.5% Xylocaine with 40 mg of Depomedrol. The patient tolerated the procedure well. The needle was removed intact. Dry dressing was placed over the injection site. The patient was taken to the recovery room in stable condition. EBL: nil I was present during the entire time and personally performed the procedure. SIGNATURE: Iain Nguyễn MD DATE: April 14, 2024 TIME: 9:34 AM [facility] MRI LUMBAR SPINE WO IVCONon 02-27-2024 MRI LUMBAR SPINE WO IVCON * * *Final Report* * * DATE OF EXAM: Feb 27 2024 1:55PM LDM 0303 - MRI LUMBAR SPINE WO IVCON / PROCEDURE REASON: multiple diagnoses * * * * Physician Interpretation * * * * EXAMINATION: MRI LUMBAR SPINE WO IVCON CLINICAL HISTORY: Chronic bilateral low back pain without sciatica Chronic bilateral low back pain without sciatica TECHNIQUE: Routine lumbosacral spine MR protocol without gadolinium. MQ: [id number] COMPARISON: MRI dated 09/05/2021 RESULT: Counting reference: Lumbosacral junction. For the purposes of this report, L4-5 is considered the level of the iliac crest and assume there are 5 lumbar-type vertebrae. Anatomic variant: None. Localizer images: No additional findings. Alignment: Alignment is anatomic. Bone marrow signal/fracture: No evidence of pathologic marrow infiltration. No evidence of prior fracture. Mild disc height loss at L4-L5, L2-L3. Conus: The conus is within normal limits of signal intensity and morphology. Paraspinal soft tissues: Paraspinal soft tissues are within normal limits. Lower thoracic spine: Visualized lower thoracic canal and foramina are patent. L1-L2: Small disc bulge, abutment of traversing nerve roots, without canal stenosis, unchanged. Mild facet arthropathy. L2-L3: Small disc bulge, mild canal stenosis. Mild facet arthropathy. Mild bilateral neural foraminal stenosis. L3-L4: Small disc bulge superimposed central disc protrusion, epidural lipomatosis, mild canal stenosis. Moderate to severe facet arthropathy. Right foraminal disc protrusion, mildly increased in size with abutment of exiting RIGHT L3 nerve root and moderate neural foraminal stenosis, mildly worsened in the interval. L4-L5: Small disc bulge, superimposed central disc protrusion redemonstrated. In addition there appears to be a small central and RIGHT subarticular disc protrusion noted. Resultant mild canal stenosis and abutment of traversing bilateral nerve roots. Moderate facet arthropathy. Mild bilateral neural foraminal stenosis, with abutment of exiting bilateral L4 nerve roots, unchanged. L5-S1: Small disc bulge, with annular fissure, unchanged. No canal stenosis. Foraminal and extraforaminal disc bulge, abutting the exiting LEFT L5 nerve root, in the Neural foramen and extraforaminal portion redemonstrated, unchanged. Sacrum and iliac wings: The visualized sacrum and iliac wings are within normal limits. IMPRESSION: 1. Multilevel degenerative changes, with interval worsening at L4-L5 with a small central and RIGHT subarticular disc protrusion. Abutment of traversing bilateral nerve roots at L4-L5. 2. Mild worsening of RIGHT L3-L4 neural foraminal stenosis and abutment of exiting RIGHT L3 nerve roots. 3. Other multilevel degenerative changes in lumbar spine as detailed above. Anatomic Lumbar Variant: None. L4-5 is considered the level of the iliac crest and assume there are 5 lumbar-type vertebrae. Supervisor Metalizing: PSCB Transcribe Date/Time: Mar 01 2024 2:12P Dictated by : MARIO DAO MD This examination was interpreted and the report reviewed and electronically signed by: MARIO DAO MD on Mar 01 2024 2:18PM EST [id number] Normal [facility] 12-11-2023 [facility] Telephone ([facility]) -------- DENVER HOLLINGSWORTH ([id number]) 1980 M Date Time Provider Department [facility] During your visit today, we recorded the following information about you: Kathryn Bah RN 12/11/2023 9:04 AM Signed I attempted to contact patient regarding his upcoming appointment with Dr. Moy. Patient's spouse answered the telephone and stated patient was not available and she would speak for him. Provided education that patient could contact the office to further discuss symptoms and imaging and patient's spouse stated he will not be able to call and she would be happy to offer assistance at this time. Patient's spouse stated patient is being evaluated for cervical, thoracic and lumbar pain. She denied patient having any recent injury or trauma. I provided education regarding obtaining x-rays prior to scheduled appointment. Patient's was agreeable. I provided the office telephone number if patient or patient's spouse had any questions. MARIEL Peralta Allergies As of Date: 12/11/2023 Noted Allergy Reaction HYDROCODONE BITARTRATE 01/19/2017 8 - GI Upset TRULICITY (DULAGLUTIDE) 07/17/2023 15 - Contraindication-Medical [place]* Comments: GASTROPARESIS, cannot use GLP1 FIBRATE ANTI-LIPIDEMICS 01/15/2019 17 - Myalgia Date Reviewed: 12/04/2023 Reviewed by: Anika Jones LPN - Fully Assessed Reason for Visit: Appointment [186] Prescriptions as of 12/11/2023 - empagliflozin (JARDIANCE) 10 mg tablet Take 1 tablet by mouth daily with breakfast. - nabumetone (RELAFEN) 500 mg tablet Take 1 tablet by mouth once daily. TAKE WITH FOOD - metFORMIN (GLUCOPHAGE) 500 mg tablet Take 2 tablets by mouth two times a day with meals. - buPROPion XL (WELLBUTRIN XL) 150 mg 24 hr tablet Take 1 tablet by mouth once daily. - empagliflozin (JARDIANCE) 10 mg tablet Take 1 tablet by mouth daily with breakfast. - pioglitazone (ACTOS) 30 mg tablet Take 1 tablet by mouth once daily. - tiZANidine (ZANAFLEX) 2 mg tablet Take 1-2 tablets by mouth every 6 hours as needed. - sildenafil (VIAGRA) 50 mg tablet Take 1-2 tablets by mouth once daily as needed. - insulin glargine 100 unit/mL (3 mL) Inject 50 Units subcutaneously two times a day. or as directed - insulin lispro (HUMALOG U-100 INSULIN) 100 unit/mL crtg Take 12 units with meals. Insulin Sliding Scale: BG 70-150, give 0 units; BG 151-180, give 4 units; BG 181-220, give 6 units; BG 221-260, give 8 units; BG 261-300, give 10 units; BG 301-340, give 12 units; BG 341-380, give 14 units and call provider. - cyanocobalamin (VITAMIN B-12) 1,000 mcg tab Take 1 tablet by mouth once daily. - Cholecalciferol, Vitamin D3, 125 mcg (5,000 unit) cap Take 1 capsule by mouth once daily. - Blood-Glucose Sensor (Proxama G7 SENSOR) allyson Apply new sensor every ten (10) days. - atorvastatin (LIPITOR) 20 mg tablet Take 1 tablet by mouth daily at bedtime. For cholesterol. - lisinopril (ZESTRIL) 5 mg tablet Take 1 tablet by mouth once daily. - metoprolol succinate ER (TOPROL XL) 50 mg 24 hr tablet Take 1 tablet by mouth once daily. - terazosin (HYTRIN) 5 mg capsule Take 1 capsule by mouth daily at bedtime. - omeprazole (PRILOSEC) 40 mg capsule Take 1 capsule by mouth two times a day. - traZODone (DESYREL) 100 mg tablet Take 1 tablet by mouth daily at bedtime. - sertraline (ZOLOFT) 50 mg tablet Take 1 tablet by mouth once daily. - insulin needles, DISPOSABLE, (BD INSULIN PEN NEEDLE UF) 31 gauge x 5/16 Use to inject insulin as directed. Up to 5 daily injections - CPAP Autopap 5-20 cm H2O, Heat Humidity, suitable mask, [employer] supplies, opt Chinstrap, G47.33. - Lancets lancets Choose lancets covered by insurance. Test blood sugar(s) 3 times daily. 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 Normal [facility] Basic Metabolic Profile (BMP )on 11-28-2023 BUN/CRE 15.2 RATIO Normal 10-20 [facility] Comment on above: Performed By: #### L 500.2500, L100.0100, L500.3400, L501.2450 #### [facility] [address] [place], [address] CA,Total 9.5 mg/dL Normal 8.5-10.1 [facility] Comment on above: Performed By: #### L 500.2500, L100.0100, L500.3400, L501.2450 #### [facility] [address] [place], [address] Chloride [Moles/Vol] 106 mmol/L Normal 98-107 [facility] Comment on above: Performed By: #### L 500.2500, L100.0100, L500.3400, L501.2450 #### [facility] [address] [place], [address] CO2 [Moles/Vol] 25.0 mmol/L Normal 21.0-32.0 [facility] Comment on above: Performed By: #### L 500.2500, L100.0100, L500.3400, L501.2450 #### [facility] [address] [place], [address] Creatinine [Mass/Vol] 1.05 mg/dL Normal 0.70-1.30 [facility] Comment on above: Result Comment: The validity of the calculated GFR GFRAA in patients over 70 years has not been determined. Clinical correlation is essential. Performed By: #### L 500.2500, L100.0100, L500.3400, L501.2450 #### [facility] [address] [place], [address] ECRCL 131.08 ml/min Normal [facility] Comment on above: Performed By: #### L 500.2500, L100.0100, L500.3400, L501.2450 #### [facility] [address] [place], [address] EST GFR - AA 99 mL/min Normal >60 [facility] Comment on above: Result Comment: Afri can Uzbek GFR Calc Performed By: #### L 500.2500, L100.0100, L500.3400, L501.2450 #### [facility] [address] [place], [address] GAP 6 Normal 5-15 [facility] Comment on above: Performed By: #### L 500.2500, L100.0100, L500.3400, L501.2450 #### [facility] [address] [place], [address] GFR/1.73 sq M.predicted among non-blacks MDRD (S/P/Bld) [Vol rate/Area] 82 mL/min/{1.73_m2} Normal >60 [facility] Comment on above: Result Comment: Non- GFR Calc Performed By: #### L 500.2500, L100.0100, L500.3400, L501.2450 #### [facility] [address] [place], [address] Glucose [Mass/Vol] 164 mg/dL High 74-106 [facility] Comment on above: Result Comment: Fast ing Glucose result greater than or equal to 126 mg/dL suggests DIABETES MELLITUS per A.D.A. criteria. Performed By: #### L 500.2500, L100.0100, L500.3400, L501.2450 #### [facility] [address] [place], [address] Potassium [Moles/Vol] 4.1 mmol/L Normal 3.5-5.1 [facility] Comment on above: Result Comment: Slig ht Hemolysis, Result may be falsely increased. Performed By: #### L 500.2500, L100.0100, L500.3400, L501.2450 #### [facility] [address] [place], [address] Sodium [Moles/Vol] 137 mmol/L Normal 136-145 [facility] Comment on above: Performed By: #### L 500.2500, L100.0100, L500.3400, L501.2450 #### [facility] [address] [place], [address] Urea nitrogen [Mass/Vol] 16 mg/dL Normal 7-18 [facility] Comment on above: Performed By: #### L 500.2500, L100.0100, L500.3400, L501.2450 #### [facility] [address] [place], [address] CBC W/Diff, Automatedon 06-0 Absolute Lymph 2.90 X10 3/uL Normal 0.83-4.51 [facility] Comment on above: Performed By: #### L 500.2500, L100.0100, L500.3400, L501.2450 #### [facility] [address] [place], [address] Absolute Neut 5.1 X10 3/uL Normal 2.0-7.7 [facility] Comment on above: Performed By: #### L 500.2500, L100.0100, L500.3400, L501.2450 #### [facility] [address] [place], [address] Basophils/100 WBC (Bld) 0.7 % Normal 0-1 [facility] Comment on above: Performed By: #### L 500.2500, L100.0100, L500.3400, L501.2450 #### [facility] [address] [place], [address] Eosinophils/100 WBC (Bld) 1.9 % Normal 0-5 [facility] Comment on above: Performed By: #### L 500.2500, L100.0100, L500.3400, L501.2450 #### [facility] [address] [place], [address] Erythrocyte distribution width (RBC) [Ratio] 12.5 % Normal 11.6-14.6 [facility] Comment on above: Performed By: #### L 500.2500, L100.0100, L500.3400, L501.2450 #### [facility] [address] [place], [address] Hematocrit (Bld) [Volume fraction] 46.5 % Normal 40-54 [facility] Comment on above: Performed By: #### L 500.2500, L100.0100, L500.3400, L501.2450 #### [facility] [address] [place], [address] Hemoglobin (Bld) [Mass/Vol] 16.6 g/dL High 13.0-16.5 [facility] Comment on above: Performed By: #### L 500.2500, L100.0100, L500.3400, L501.2450 #### [facility] [address] [place], [address] IG% 0.300 Normal 0.0-0.9 [facility] Comment on above: Result Comment: IG% - Immature Granulocytes (promyelocytes, myelocytes and metamyelocytes) > 1% indicates that a LEFT SHIFT is Present. Performed By: #### L 500.2500, L100.0100, L500.3400, L501.2450 #### [facility] [address] [place], [address] Lymphocytes/100 WBC (Bld) 32.1 % Normal 19-41 [facility] Comment on above: Performed By: #### L 500.2500, L100.0100, L500.3400, L501.2450 #### [facility] [address] [place], [address] MCH (RBC) [Entitic mass] 30.0 pg Normal 27.0-32.0 [facility] Comment on above: Performed By: #### L 500.2500, L100.0100, L500.3400, L501.2450 #### [facility] [address] [place], [address] MCHC (RBC) [Mass/Vol] 35.7 g/dL Normal 32-36 [facility] Comment on above: Performed By: #### L 500.2500, L100.0100, L500.3400, L501.2450 #### [facility] [address] [place], [address] MCV (RBC) [Entitic vol] 83.9 fL Normal 80-94 [facility] Comment on above: Performed By: #### L 500.2500, L100.0100, L500.3400, L501.2450 #### [facility] [address] [place], [address] Monocytes/100 WBC (Bld) 8.2 % Normal 0-10 [facility] Comment on above: Performed By: #### L 500.2500, L100.0100, L500.3400, L501.2450 #### [facility] [address] [place], [address] Neutrophils/100 WBC (Bld) 56.8 % Normal 47-70 [facility] Comment on above: Performed By: #### L 500.2500, L100.0100, L500.3400, L501.2450 #### [facility] [address] [place], [address] Nucleated RBC (Bld) [#/Vol] 0 10*3/uL Normal 0-5 [facility] Comment on above: Performed By: #### L 500.2500, L100.0100, L500.3400, L501.2450 #### [facility] [address] [place], [address] Platelet mean volume (Bld) [Entitic vol] 11.4 fL Normal 6.2-12.0 [facility] Comment on above: Performed By: #### L 500.2500, L100.0100, L500.3400, L501.2450 #### [facility] [address] [place], [address] Platelets (Bld) [#/Vol] 152 10*3/uL Normal 150-450 [facility] Comment on above: Performed By: #### L 500.2500, L100.0100, L500.3400, L501.2450 #### [facility] [address] [place], [address] RBC (Bld) [#/Vol] 5.54 10*6/uL Normal 4.6-6.[address] [facility] Comment on above: Performed By: #### L 500.2500, L100.0100, L500.3400, L501.2450 #### [facility] [address] [place], [address] RDW SD 38.1 fl Normal 35.1-43.9 [facility] Comment on above: Performed By: #### L 500.2500, L100.0100, L500.3400, L501.2450 #### [facility] [address] [place], [address] WBC (Bld) [#/Vol] 9.0 10*3/uL Normal 4.4-11.0 [facility] Comment on above: Performed By: #### L 500.2500, L100.0100, L500.3400, L501.2450 #### [facility] [address] [place], [address] CT Chest, Abd, Pel w/Contras ton 11-28-2023 CT Chest, Abd, Pel w/Contrast [facility] Imaging Services [address] [address] CT Chest, Abd, Pel w/Contrast MR#: [id number] Acct: [id number] Name: DENVER HOLLINGSWORTH Rep #: [id number] : 1980 M 43 From: Rufino Tovar MD PCP: Dr. Michelle Jane MD Status: [facility] ER Study: CT Chest, Abd, Pel w/Contrast Date of Exam: Exam# [id number] Ordering Dr: David Morris DO [id number] EXAM: CT CHEST, ABDOMEN AND PELVIS WITH INTRAVENOUS CONTRAST CLINICAL INDICATION: chest and abdominal pain TECHNIQUE: Helically acquired images were obtained of the chest, abdomen and pelvis with intravenous contrast. This CT exam was performed using one or more of the following dose reduction techniques: automated exposure control, adjustment of the mA and/or kV according to patient size, and/or use of iterative reconstruction technique. CONTRAST: IV 100mL [id number]-300 COMPARISON: CT abdomen dated 11/13/2022 FINDINGS: CHEST: LUNGS AND PLEURAL SPACES: Unremarkable. No mass. No consolidation or edema. No pleural effusion or thickening. No pneumothorax. HEART: Unremarkable. Heart size is normal. No pericardial effusion. MEDIASTINUM: Unremarkable. No mediastinal or hilar adenopathy. Esophagus is unremarkable. No hiatal hernia. THYROID: Unremarkable. No thyroid lesions. ABDOMEN: LIVER: Unremarkable. Homogeneous. No focal mass. GALLBLADDER AND BILE DUCTS: Patient status post cholecystectomy. No intra- or extrahepatic biliary ductal dilation. PANCREAS: Unremarkable. No focal cystic or solid mass. SPLEEN: Unremarkable. Normal size without focal cystic or solid mass. ADRENALS: Unremarkable. No nodules. KIDNEYS AND URETERS: Unremarkable. Normal renal size and position. No hydronephrosis. STOMACH AND BOWEL: Unremarkable. No stomach or bowel distention. No focal inflammatory change. PELVIS: APPENDIX: No evidence of acute appendicitis. BLADDER: Unremarkable. REPRODUCTIVE: Unremarkable as visualized. No mass. CHEST, ABDOMEN and PELVIS: INTRAPERITONEAL SPACE: Unremarkable. No ascites or other fluid collection. No free air. BONES/JOINTS: Unremarkable. No suspicious lytic or blastic abnormality. SOFT TISSUES: Unremarkable. No discrete abdominal or pelvic wall hernia. VASCULATURE: Unremarkable. Aorta is non-dilated. No aortic dissection. No obvious central pulmonary embolism although this study was not performed with the pulmonary embolism protocol. LYMPH NODES: Unremarkable. No enlarged lymph nodes. CT/CT Chest, Abd, Pel w/Contrast IMPRESSION: No acute findings in the chest, abdomen or pelvis. Electronically Signed: Rufino Tovar MD at 17:09 EDT , CC: Dr. David Morris DO; Dr. Michelle Jane MD Supervisor Metalizing: Signed Normal [facility] Emergency Department Summary on 11-28-2023 Emergency Department Summary [facility] Medical Records Department [address] [place] [address] Emergency Department Summary 11/28/23 MR#: [id number] Acct: [id number] Name: DENVER HOLLINGSWORTH Rep #: [id number] : 1980 43 From: David Morris DO PCP: Dr. Michelle Jane MD Status:DEP ER Location: ED HPI History of Present Illness Chief Complaint: Back Narrative Narrative: 43-year-old male presenting with back pain. He states it is in the right upper back radiates around under his right ribs. He also has pain radiating down into his lower back into his gluteal region and down into his posterior thigh. Patient has a history of chronic back pain. No loss of bladder or bowel control. No saddle paresthesias. Denies any direct trauma. [facility] Medical History Degenerative disc disease Diabetes mellitus Hyperlipemia Hypertension Home Medications ???Medication ???Instructions ???Recorded ???Last Taken ???Type metformin 500 mg tablet,extended 1,000 mg PO BID 03/11/18 05/19/18 History release 24 hr (Glucophage XR) lisinopril 10 mg tablet 20 mg PO DAILY hypertension 05/20/18 05/19/18 History insulin glargine 100 unit/mL (3 50 units subcut BID 07/31/18 Unknown History mL) subcutaneous pen (Lantus Solostar U-100 Insulin) atorvastatin 20 mg tablet 20 mg PO DAILY 10/26/18 Unknown History dulaglutide 0.75 mg/0.5 mL 0.75 mg subcut WE 12/12/21 Unknown History subcutaneous pen injector (Trulicity) insulin lispro 100 unit/mL 12 unit subcut TID 12/12/21 Unknown History subcutaneous pen insulin lispro 100 unit/mL subcut 12/12/21 Unknown History subcutaneous pen lurasidone 40 mg tablet (Latuda) 40 tab PO DAILY 12/12/21 Unknown History ondansetron 4 mg disintegrating 4 mg PO Q8H PRN PRN Nausea #10 tabs 12/12/21 Unknown Rx tablet oxcarbazepine 300 mg tablet 300 tab PO BID 12/12/21 Unknown History (Trileptal) sertraline 50 mg tablet 50 tab PO DAILY 12/12/21 Unknown History naproxen 500 mg tablet 500 mg PO BID PRN pain #20 tabs 05/06/23 Unknown Rx naproxen 500 mg tablet (Naprosyn) 500 mg PO BID PRN pain #20 tabs 11/28/23 Unknown Rx Allergy/AdvReac Type Severity Reaction Status Date / Time hydrocodone bitartrate (From AdvReac Nausea Verified 05/05/23 21:10 Vicodin) Surgical History History of cholecystectomy Social History Smoking Status: Current every day smoker tobacco type: cigarettes ROS ROS ED Constitutional Constitutional ED: Denies chills, fever(s) or sweats Eyes Eyes: Denies blurry vision or change in vision ENT ENT ED: Denies ear pain or sore throat Cardiovascular Cardiovascular: Denies chest pain, palpitations or racing heartbeat Respiratory/Chest Respiratory/Chest: Reports other Details: Right rib pain ; Denies cough or sputum Gastrointestinal Gastrointestinal: Reports abdominal pain; Denies constipation, diarrhea, nausea or vomiting Genitourinary Genitourinary ED: Denies dysuria, hematuria or urinary frequency Musculoskeletal Musculoskeletal: Reports back pain; Denies arthralgias, myalgias or neck pain Integumentary Denies abscess, Abrasions or rash Neurologic Neurologic: Denies headache(s), paresthesias or weakness Psychiatric Psychiatric: Denies anxiety, depression, suicidal ideation or suicidal thoughts Endocrine Endocrinology: Denies polydipsia or polyuria EXAM Physical Exam Const Vital Signs: 11/28/23 14:01 11/28/23 18:01 11/28/23 18:36 Temperature 98.2 F 97.2 F L Temperature Source Temporal Pulse Rate 86 80 82 Respiratory Rate 14 16 16 Blood Pressure 134/93 H 130/90 H 128/65 H Blood Pressure Mean 106 103 86 Pulse Ox 96 99 97 Oxygen Delivery Method Room Air Room Air Positive well nourished HEENT Reports moist mucous membranes Eyes PERRL and EOMs intact bilaterally Chest Wall Chest Narrative: Tenderness to palpation of the right lateral ribs and right anterior ribs into the right upper quadrant. No midline spinal tenderness, deformity, step-off or thoracic spine. Resp normal respiratory effort and clear to auscultation bilaterally Auscultation: Negative for rales or rhonchi Cardio regular rate and regular rhythm GI GI Narrative: Patient very tender in the right upper quadrant. Palpation: Negative for hepatomegaly or splenomegaly Extremity normal to inspection Neuro oriented x3 Sensorium / Orientation: alert Psych mental status grossly normal Skin no rashes or lesions noted and no wounds MDM MDM MDM Narrative Medical decision making narrative: Patient presenting with back pain. He states it is in the mid back wraps around under his ribs all the wa (more content not included)... Normal [facility] Lipaseon 11-28-2023 Lipase [Catalytic activity/Vol] 49 U/L Normal 13-75 [facility] Comment on above: Result Comment: Leif espino note: LIPASE revised reference range effective 22. New Lipase methodology. Expected to produce lower values than the previous assay method. NEW Reference Range: 13 - 75 U/L Performed By: #### L 500.2500, L100.0100, L500.3400, L501.2450 ####[facility] [address] [place], [address] Liver Profileon 11-28-2023 Albumin [Mass/Vol] 4.1 g/dL Normal 3.2-5.0 [facility] Comment on above: Performed By: #### L 500.2500, L100.0100, L500.3400, L501.2450 #### [facility] [address] [place], [address] ALK P 93 U/L Normal 45-117 [facility] Comment on above: Performed By: #### L 500.2500, L100.0100, L500.3400, L501.2450 #### [facility] [address] [place], [address] ALT [Catalytic activity/Vol] 33 U/L Normal 16-61 [facility] Comment on above: Performed By: #### L 500.2500, L100.0100, L500.3400, L501.2450 #### [facility] [address] [place], [address] AST [Catalytic activity/Vol] 18 U/L Normal 15-37 [facility] Comment on above: Result Comment: Slig ht Hemolysis, Result may be falsely increased. Performed By: #### L 500.2500, L100.0100, L500.3400, L501.2450 #### [facility] [address] [place], [address] Bilirubin [Mass/Vol] 0.40 mg/dL Normal 0.20-1.00 [facility] Comment on above: Result Comment: For patients on eltrombopag therapy, use of Dimension [place] TBIL is not recommended. Performed By: #### L 500.2500, L100.0100, L500.3400, L501.2450 #### [facility] [address] [place], [address] Bilirubin.direct [Mass/Vol] 0.12 mg/dL Normal 0.00-0.30 [facility] Comment on above: Performed By: #### L 500.2500, L100.0100, L500.3400, L501.2450 #### [facility] [address] [place], [address] Globulin (S) [Mass/Vol] 3.5 g/dL Normal 2.2-4.2 [facility] Comment on above: Performed By: #### L 500.2500, L100.0100, L500.3400, L501.2450 #### [facility] [address] [place], [address] T PROT 7.6 g/dL Normal 6.4-8.2 [facility] Comment on above: Performed By: #### L 500.2500, L100.0100, L500.3400, L501.2450 #### [facility] [address] [place], [address] Urinalysis, Completeon 11-27 BACTERIA 0 SEEN Normal None Seen [facility] Comment on above: Order Comment: CLEAN CATCH Performed By: #### L 400.0001 ####[facility] [address] [place], [address] EPI,SQUAMOUS 0 SEEN Normal 0-5 [facility] Comment on above: Order Comment: CLEAN CATCH Performed By: #### L 400.0001 ####[facility] [address] [place], [address] Mucus Ql (Urine sed) 0 SEEN Normal [facility] Comment on above: Order Comment: CLEAN CATCH Performed By: #### L 400.0001 ####[facility] [address] [place], [address] RBC 0 SEEN Normal 0-5 [facility] Comment on above: Order Comment: CLEAN CATCH Performed By: #### L 400.0001 ####[facility] [address] [place], [address] WBC 0 SEEN Normal 0-5 [facility] Comment on above: Order Comment: CLEAN CATCH Performed By: #### L 400.0001 ####[facility] [address] [place], [address] HbA1c (Bld)on 02-12-2023 Average glucose Estimated from glycated hemoglobin (Bld) [Mass/Vol] 148 mg/dL [facility] HbA1c (Bld) [Mass fraction] 6.8 % High 4.3 - 5.6 % [facility] XR ESOPHAGRAMon 01-17-2023 [facility] NM GASTRIC EMPTYING SOLIDon 01-03-2023 [facility] Comprehensive metabolic 2000 panelon 08-15-2022 Albumin [Mass/Vol] 4.8 g/dL 3.9 - 4.9 g/dL [facility] ALP [Catalytic activity/Vol] 86 U/L 38 - 113 U/L [facility] ALT [Catalytic activity/Vol] 38 U/L 10 - 54 U/L [facility] Anion gap [Moles/Vol] 9 mmol/L 9 - 18 mmol/L [facility] AST [Catalytic activity/Vol] 29 U/L 14 - 40 U/L [facility] Bilirubin [Mass/Vol] 0.4 mg/dL 0.2 - 1.3 mg/dL [facility] Calcium [Mass/Vol] 10.1 mg/dL 8.5 - 10. 2 mg/dL [facility] Chloride [Moles/Vol] 99 mmol/L 97 - 105 mmol/L [facility] CO2 [Moles/Vol] 28 mmol/L 22 - 30 mmol/L [facility] Creatinine [Mass/Vol] 0.83 mg/dL 0.73 - 1.22 mg/dL [facility] Estimated Glomerular Filtration Rate 112 mL/min/1.73m >=60 mL/min/1.73m [facility] Glucose [Mass/Vol] 105 mg/dL High 74 - 99 mg/dL [facility] Potassium [Moles/Vol] 4.3 mmol/L 3.7 - 5.1 mmol/L [facility] Protein [Mass/Vol] 7.6 g/dL 6.3 - 8.0 g/dL [facility] Sodium [Moles/Vol] 136 mmol/L 136 - 144 mmol/L [facility] Urea nitrogen [Mass/Vol] 12 mg/dL 9 - 24 mg/dL [facility] HbA1c (Bld)on 08-15-2022 Average glucose Estimated from glycated hemoglobin (Bld) [Mass/Vol] 246 mg/dL [facility] HbA1c (Bld) [Mass fraction] 10.2 % High 4.3 - 5.6 % [facility] Lipid 1996 panelon 3 Cholesterol [Mass/Vol] 141 mg/dL <200 mg/dL [facility] Cholesterol in HDL [Mass/Vol] 36 mg/dL Low >39 mg/dL [facility] Cholesterol in LDL [Mass/Vol] 53 mg/dL <100 mg/dL [facility] Cholesterol in LDL/Cholesterol in HDL [Mass ratio] 1.47 {ratio} <2.54 [facility] Cholesterol in VLDL [Mass/Vol] 52 mg/dL High <30 mg/dL [facility] Cholesterol non HDL [Mass/Vol] 105 mg/dL <130 mg/dL [facility] Cholesterol.total/C holesterol in HDL [Mass ratio] 3.92 {ratio} <5.10 [facility] Fasting Time 13 hrs [facility] Triglyceride [Mass/Vol] 259 mg/dL High <150 mg/dL [facility] ALBUMIN/CREAT RATIO RND URon 08-14-2022 Albumin DL <= 20 mg/L (U) [Mass/Vol] 195.3 mg/L [facility] Albumin/Creatinine (U) [Mass ratio] 89 mg/g High <30 mg/g [facility] Creatinine (U) [Mass/Vol] 218.3 mg/dL 20.0 - 300.0 mg/dL [facility] CBC + DIFFon 04-04-2022 Baso # 0.10 x10EE3/UL Normal 0.00 - 0.10 [facility] Comment on above: Performed By: #### 2 75772 #### [facility],[address] [place] [address] Basophils/100 WBC (Bld) 0.5 % Normal 0.0 - 2.0 [facility] Comment on above: Performed By: #### 2 75870 #### [facility],[address] [place] [address] CBC + DIFF Normal [facility] Comment on above: Result Comment: CBC- COMPLETE BLOOD COUNT Performed By: #### 2 09580 #### [facility],[address] [place] [address] EO # 0.20 x10EE3/UL Normal 0.00 - 0.50 [facility] Comment on above: Performed By: #### 2 52965 #### [facility],[address] [place] [address] Eosinophils/100 WBC (Bld) 1.6 % Normal 0.0 - 7.0 [facility] Comment on above: Performed By: #### 2 42652 #### [facility],[address] [place], [place] [id number] Erythrocyte distribution width (RBC) [Ratio] 12.7 % Normal 12.0 - 15.6 [facility] Comment on above: Performed By: #### 2 01170 #### [facility],[address] [place] [address] Hematocrit (Bld) [Volume fraction] 44.4 % Normal 40.0 - 52.0 [facility] Comment on above: Performed By: #### 2 81764 #### [facility],[address] [place], [place] [address] Hemoglobin (Bld) [Mass/Vol] 15.4 g/dL Normal 13.0 - 17.5 [facility] Comment on above: Performed By: #### 2 92866 #### [facility],[address] [place] [address] Lymph # 2.80 x10EE3/UL Normal 0.80 - 2.80 [facility] Comment on above: Performed By: #### 2 81894 #### [facility],[address] [place] [address] Lymphocytes/100 WBC (Bld) 27.6 % Normal 20.0 - 45.0 [facility] Comment on above: Performed By: #### 2 40564 #### [facility],[address] [place], [place] [id number] MANUAL DIFF N/A Normal [facility] Comment on above: Performed By: #### 2 32494 #### [facility],[address] [place], [place] [id number] MCH (RBC) [Entitic mass] 30 pg Normal 27 - 33 [facility] Comment on above: Performed By: #### 2 57798 #### [facility],[address] [place], [place] [address] MCHC 35 X10 3 Normal 32 - 36 [facility] Comment on above: Performed By: #### 2 53621 #### [facility],[address] [place] [address] MCV (RBC) [Entitic vol] 86 fL Normal 81 - 98 [facility] Comment on above: Performed By: #### 2 98195 #### [facility],[address] [place] [address] Meriwether # 1.00 x10EE3/UL Normal 0.20 - 1.00 [facility] Comment on above: Performed By: #### 2 28480 #### [facility],[address] [place] [address] 26068 MONOS % 9.4 % Normal 0.0 - 10.0 [facility] Comment on above: Performed By: #### 2 70957 #### [facility],[address] [place] [address] Morphology Zach (Bld) [Interp] N/A Normal [facility] Comment on above: Result Comment: {CD] Performed By: #### 2 91987 #### [facility],[address] [place] [address]607 Neut # 6.20 x10EE3/UL Normal 1.50 - 7.10 [facility] Comment on above: Performed By: #### 2 46522 #### [address] [address] Neutrophils/100 WBC (Bld) 60.9 % Normal 46.0 - 76.0 [facility] Comment on above: Performed By: #### 2 06414 #### [facility],[address] [place] [address] 34573 PLATELET 183 x10EE3/UL Normal 150 - 450 [facility] Comment on above: Performed By: #### 2 71085 #### [facility],[address] [place] [address]4640 Platelet mean volume (Bld) [Entitic vol] 9.0 fL Normal 6.4 - 10.5 [facility] Comment on above: Result Comment: AUTO MATED DIFFERENTIAL Performed By: #### 2 64542 #### [facility],[address] [place] [address] 21977 RBC 5.17 x 10EE6/UL Normal 4.50 - 6.00 [facility] Comment on above: Performed By: #### 2 20203 #### [facility],[address] [place] [address] 50150 WBC 10.2 x 10EE3/UL Normal 4.5 - 10.8 [facility] Comment on above: Performed By: #### 2 13659 #### [facility],[address] [place], [place] [id number] CHEST 1 VIEWon 04-04-2022 CHEST 1 VIEW [place] [id number] Patient: DENVER HOLLINGSWORTH Phone#: : 1980 Age: 41 Gender: M Pt. Type: ER Account: [id number] Location: [facility] Ordering: STIVEN DYER Exam Date: 04/04/2022/12:43 Family Phys: JONATHAN SALEEM Charge Code: 440030 Physician: [place] Order #: [id number] Dose#: PROCEDURE: X-RAY CHEST 1 VIEW COMPARISON: [facility], XR, CHEST 1 VIEW, 12/23/2021, 19:23. INDICATIONS: Chest pain. FINDINGS: LUNGS: Normal. No significant pulmonary parenchymal abnormalities. VASCULATURE: Normal. Unremarkable pulmonary vasculature. CARDIAC: Normal. No cardiac silhouette abnormality or cardiomegaly. MEDIASTINUM: Normal. No visible mass or adenopathy. PLEURA: Normal. No effusion or pleural thickening. BONES: Degenerative changes of the spine. OTHER: Monitoring leads project across the thorax. CONCLUSION: No acute disease. No significant change has occurred. Dictated by: Jovana Shirley MD on 04/04/2022 at 12:52 Approved by: Jovana Shirley MD on 04/04/2022 at 12:[address] [facility] CMP with eGFRon 04-04-[address] AGE [address] [facility] Comment on above: Performed By: #### 2 90518 #### [facility],[address] [place], [place] [id number] Albumin [Mass/Vol] 4.4 g/dL Normal 3.4 - 5.0 [facility] Comment on above: Performed By: #### 2 48823 #### [facility],[address] [place] [address] 17031 Albumin/Globulin [Mass ratio] 1.4 {ratio} Normal 0.9 - 1.6 [facility] Comment on above: Performed By: #### 2 63137 #### [facility],[address] [place] [address] 96972 ALK PHOS 73 U/L Normal 46 - 116 [facility] Comment on above: Performed By: #### 2 21462 #### [facility],[address] [place] [address] 07033 ALT [Catalytic activity/Vol] 71 U/L High 16 - 63 [facility] Comment on above: Performed By: #### 2 91290 #### [facility],[address] [place] [address] 68608 Anion gap [Moles/Vol] 10 mmol/L Normal 10 - 20 [facility] Comment on above: Performed By: #### 2 55095 #### [facility],[address] [place] [address] 02648 AST [Catalytic activity/Vol] 34 U/L Normal 15 - 37 [facility] Comment on above: Performed By: #### 2 50526 #### [facility],[address] [place] [address] 96065 B/C RATIO 15 ratio Normal 0 - 30 [facility] Comment on above: Performed By: #### 2 38456 #### [facility],[address] [place] [address] 04512 Bilirubin [Mass/Vol] 0.5 mg/dL Normal 0.2 - 1.0 [facility] Comment on above: Performed By: #### 2 08035 #### [facility],[address] [place] [address] 02223 Calcium [Mass/Vol] 9.0 mg/dL Normal 8.5 - 10.1 [facility] Comment on above: Performed By: #### 2 84669 #### [facility],[address] [place], [place] [phone] Chloride [Moles/Vol] 102 mmol/L Normal 98 - 107 [facility] Comment on above: Performed By: #### 2 25852 #### [facility],[address] [place] [address] 19929 CMP with eGFR Normal [facility] Comment on above: Result Comment: COMP REHENSIVE METABOLIC PANEL Performed By: #### 2 11501 #### [facility],[address] [place] [address] CO2 [Moles/Vol] 30.7 mmol/L Normal 21.0 - 32.0 [facility] Comment on above: Performed By: #### 2 45839 #### [facility],[address] [place] [address] Creatinine [Mass/Vol] 0.97 mg/dL Normal 0.70 - 1.30 [facility] Comment on above: Performed By: #### 2 59272 #### [facility],[address] [place] [address] GFR/1.73 sq M.predicted among non-blacks MDRD (S/P/Bld) [Vol rate/Area] mL/min/{1.73_m2} Normal 60 - 999 [facility] Comment on above: Performed By: #### 2 74051 #### [facility],[address] [place] [address] Result Comment: ACCO RDING TO THE NATIONAL KIDNEY DISEASE EDUCATION PROGRAM(NKDE), A NORMAL eGFR IS A VALUE GREATER THAN OR EQUAL TO 60 ML/MIN/1.73 SQ METERS. CHRONIC KIDNEY DISEASE: <60mL/MIN/1.73 SQ METERS KIDNEY FAILURE: <15mL/MIN/1.73 SQ METERS THIS TEST SHOULD ONLY BE USED FOR PATIENTS 18 YEARS OF AGE AND OLDER. Globulin (S) [Mass/Vol] 3.2 g/dL Normal 1.5 - 3.8 [facility] Comment on above: Performed By: #### 2 87652 #### [facility],[address] [place] [address] 41602 Glucose [Mass/Vol] 118 mg/dL High 74 - 106 [facility] Comment on above: Performed By: #### 2 38629 #### [facility],[address] [place] [address] 97883 Potassium [Moles/Vol] 4.1 mmol/L Normal 3.5 - 5.1 [facility] Comment on above: Performed By: #### 2 41282 #### [facility],[address] [place] [address] 56571 Protein [Mass/Vol] 7.6 g/dL Normal 6.4 - 8.2 [facility] Comment on above: Performed By: #### 2 47205 #### [facility],[address] [place] [address] 77726 Sodium [Moles/Vol] 139 mmol/L Normal 136 - 145 [facility] Comment on above: Performed By: #### 2 14323 #### [facility],[address] [place] [address] 31832 Urea nitrogen [Mass/Vol] 15 mg/dL Normal 7 - 18 [facility] Comment on above: Performed By: #### 2 41332 #### [facility],[address] [place] [address] 72394 D-DIMER, QUANTITATIVEon 03-24 D-DIMER QUANT 135 ng/ml Normal 0 - 230 [facility] Comment on above: Performed By: #### 2 86794 #### [facility],[address] [place] [address] 46031 D-DIMER, QUANTITATIVE Normal [facility] Comment on above: Result Comment: MORTEZA T D-DIMER Performed By: #### 2 93767 #### [facility],[address] [place] [address] 69694 NT-proBNPon 04-04-2022 Natriuretic peptide B (Bld) [Mass/Vol] 78 pg/mL Normal 0 - 125 [facility] Comment on above: Performed By: #### 2 39020 #### [facility],[address] [place] [address] 51062 PROTHROMBIN TIME AND INRon 1 INR Coag (PPP) [Relative time] 1.1 {INR} Normal 0.8 - 1.2 [facility] Comment on above: Result Comment: T HE HEMOSIL THROMBOPLASTIN REAGENT USED IN THE PROTHROMBIN TIME TEST INTERACTS WITH THE DRUG CUBICIN (DAPTOMYCIN) AND WILL RESULT IN FALSELY ELEVATED PT / INR RESULTS INR INTERPRETATION INR INDICATION PREVENTION AND TREATMENT OF THROMBOEMBOLISM ASSOCIATED WITH: 2.0 - 3.0 ATRIAL FIBRILLATION, BIOPROSTHETIC HEART VALVES, PULMONARY EMBOLISM, VENOUS THROMBOSIS, SYSTEMIC EMBOLISM POST MYOCARDIAL INFARCTION 2.5 - 3.5 MECHANICAL HEART VALVES Performed By: #### 2 [id number] #### [facility],[address] [place], [place] [id number] PROTHROMBIN TIME AND INR Normal [facility] Comment on above: Result Comment: PROT HROMBIN TIME AND INR Performed By: #### 2 75306 #### [facility],[address] [place] [address] 55635 PT-COUMADIN 12.5 sec Normal 9.3 - 14.1 [facility] Comment on above: Performed By: #### 2 55396 #### [facility],[address] [place] [address] 41557 TROPONIN I, HIGH SENSITIVITY on 04-04-2022 HS TROPONIN 6.0 pg/mL Normal 0.0 - 76.2 [facility] Comment on above: Performed By: #### 2 38276 #### [facility],[address] [place] [address] 52755 HS TROPONIN 6.7 pg/mL Normal 0.0 - 76.2 [facility] Comment on above: Performed By: #### 2 40347 #### [facility],[address] [place] [address] 74669 EMERGENCY REPORTon 2 EMERGENCY REPORT [facility] EMERGENCY ROOM REPORT NAME ACCOUNT SEX AGE ADMIT DISCHARGE PT MED. RECORD# NUMBER DATE DATE TYPE LAKISHA [id number] [place] 41 12/23/21 12/23/21 3 [place] [id number] ROOM: ER DATE OF : 1980 DICTATING PHYSICIAN: Deisy Ashford ADDENDUM DIAGNOSTIC DATA: White count was elevated at 15.4, hemoglobin 16.7, hematocrit 47.5, and platelet count 201,000. Sodium was 135, potassium 4.4, chloride 101, CO2 of 25.2, BUN 19, creatinine 0.9, and glucose 141. AST is 32, ALT 65, alkaline phosphatase 113, and total bilirubin 0.4. Anion gap was normal at 13. Rapid strep came back negative, so we do have a strep culture pending. COVID swab came back negative. EMERGENCY DEPARTMENT COURSE AND TREATMENT: I did give the patient Rocephin 1 gram IV piggyback here. I placed him on amoxicillin 500 mg one p.o. t.i.d., dispense #30 with no refill; ibuprofen 800 mg one every 8 hours as needed for pain/fever, dispense #20 with no refill, and Zofran ODT 4 mg one p.o. every 8 hours as needed for nausea and vomiting, dispense #15 with no refill. He is to rest, encourage fluids, take the medication as prescribed, and follow up with Dr. Michelle Jane at [address] [place] [address], in the next 3 to 5 days for the culture results. If his symptoms become worse or any other problems develop, return here to the Emergency Department. The patient was discharged in improved, clinically stable condition. Nurse's notes reviewed. DIAGNOSES: 1. Acute pharyngitis. 2. Bronchitis. Dictated By: Deisy Ashford DO 12/23/21 21:57 JOB #: [id number] Transcribed By: [email or web address] 12/26/21 09:35 Electronically signed by: E-Sign: Dr. Deisy Ashford D.O. 01/08/22 09:17 Page 1 of 1 [facility] Emergency Room Report Normal [facility] EMERGENCY REPORTon 2 EMERGENCY REPORT [facility] EMERGENCY ROOM REPORT NAME ACCOUNT SEX AGE ADMIT DISCHARGE PT MED. RECORD# NUMBER DATE DATE TYPE LAKISHA [id number] [place] 41 12/23/21 12/23/21 3 [place] [id number] ROOM: ER DATE OF : 1980 DICTATING PHYSICIAN: Deisy Ashford CHIEF COMPLAINT/HISTORY OF PRESENT ILLNESS: This is a 41-year-old white male complaining of a sore throat and a fever. He states his sore throat is horrible. He has had some sweats. He denies any ear pain. He has had just a very occasional cough. He has not been short of breath. He has had a diffuse generalized headache. No body aches. He states just mainly headache, sore throat and a cough. He has not eaten for a few days because it hurts too much to swallow. He still has his tonsils. He did have the COVID vaccine but he is worried about having COVID. Apparently his father of COVID about a year ago. PAST MEDICAL HISTORY: Insulin dependent diabetes, hypertension, hyperlipidemia. He states he has peptic ulcer disease with H. Pylori. He has a history of bipolar disorder, PTSD, anxiety, depression. PAST SURGICAL HISTORY: Cholecystectomy. ALLERGIES: No known drug allergies. SOCIAL HISTORY: The patient is a smoker 1 pack per day. He does admit to occasional alcohol use. Denies any drug use. Lives at home with family. PCP is Dr. Patterson in [place]. REVIEW OF SYSTEMS: Does admit to fever and sweats. Denies any chills. Does complain of a sore throat. Denies any ear pain or nasal congestion. Denies any chest pain, shortness of breath. Does admit to a cough. Denies any sputum, wheezing, abdominal pain, nausea, vomiting, diarrhea, constipation, melena, hematochezia. He does admit to a headache. Denies any numbness, unsteady gait. Does admit to some mild weakness and fatigue. Denies any neck or back pain, joint pain, skin rashes or swelling, hives, hayfever, swollen glands. Further review of systems negative. PHYSICAL EXAMINATION: VITAL SIGNS: Stable. Temperature was 98.4 here. GENERAL: The patient is alert and oriented x3. Appears in no acute distress. Pleasant and cooperative. Makes eye contact. Speaks in full sentences. No hot potato voice. No hoarseness to his voice. HEENT: Head appears atraumatic. Pupils are equal and reactive to light. Red reflex intact bilaterally. Extraocular muscles intact. No conjunctival injection. No scleral icterus or lid edema. Ears; TMs intact bilaterally. No erythema noted. No external auditory canal edema or bleeding. Nose exhibits no rhinorrhea or Page 1 of 2 [facility] Emergency Room Report [facility] [place] : 1980 epistaxis. Mouth; mucous membranes are mildly dry. Diffuse pharyngeal erythema is noted. Uvula is midline and elevates. I note no tonsillar exudates at the time. Teeth appear intact. NECK: Supple with trachea midline. Some mild bilateral anterior cervical lymphadenopathy is noted. No posterior cervical lymphadenopathy. No nuchal rigidity. No posterior cervical tenderness. LUNGS: Clear bilaterally anteriorly, somewhat diminished bibasilar. No wheezing noted. No accessory muscle use. CVS: Heart rate and rhythm is regular without murmur. ABDOMEN: Soft and nontender with normoactive bowel sounds x4 quadrants. No guarding or rigidity. No rebound. No palpable abdominal masses. No hepatosplenomegaly. BACK: No midline or paraspinal region tenderness. No increased paraspinal muscle rigidity. Negative Cirilo sign. EXTREMITIES: No edema or cyanosis. Peripheral pulses are intact. No motor or sensory deficits are noted. 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 SKIN: Warm and dry. No diaphoresis or rash. NEUROLOGIC: The patient is alert and oriented x4. No motor or sensory deficits are noted. Normal speech. No hot potato voice. No conversational dyspnea. EMERGENCY DEPARTMENT COURSE AND TREATMENT: Presently I am going to get some screening blood work. Will do a rapid Strep and a COVID swab. Will get a chest x-ray and I will give him some IV fluids here, some Rocephin IV and some Decadron IV and then reevaluate. Dictated By: Deisy Ashford DO 12/23/21 19:16 JOB #: [id number] Transcribed By: [email or web address] 12/25/21 14:34 Electronically signed by: E-Sign: Dr. Deisy Ashford D.O. 12/27/21 01:27 Page 2 of 2 [facility] Emergency Room Report Normal [facility] CBC + DIFFon 12-23-2021 Baso # 0.20 x10EE3/UL High 0.00 - 0.10 [facility] Comment on above: Performed By: #### 2 52739 #### [facility],[address] [place] [address] 14401 Basophils/100 WBC (Bld) 1.2 % Normal 0.0 - 2.0 [facility] Comment on above: Performed By: #### 2 72214 #### [facility],[address] [place] [address] CBC + DIFF Normal [facility] Comment on above: Result Comment: CBC- COMPLETE BLOOD COUNT Performed By: #### 2 08610 #### [facility],[address] [place] [address] EO # 0.50 x10EE3/UL Normal 0.00 - 0.50 [facility] Comment on above: Performed By: #### 2 00677 #### [place] [id number] Eosinophils/100 WBC (Bld) 3.2 % Normal 0.0 - 7.0 [facility] Comment on above: Performed By: #### 2 93343 #### [facility],[address] [place] [address] Erythrocyte distribution width (RBC) [Ratio] 13.5 % Normal 12.0 - 15.6 [facility] Comment on above: Performed By: #### 2 40471 #### [facility],[address] [place] [address] Hematocrit (Bld) [Volume fraction] 47.5 % Normal 40.0 - 52.0 [facility] Comment on above: Performed By: #### 2 12679 #### [facility],[address] [place], [place] [id number] Hemoglobin (Bld) [Mass/Vol] 16.7 g/dL Normal 13.0 - 17.5 [facility] Comment on above: Performed By: #### 2 45364 #### [facility],[address] [place], [place] [id number] Lymph # 4.10 x10EE3/UL High 0.80 - 2.80 [facility] Comment on above: Performed By: #### 2 96901 #### [facility],[address] [place] [address] Lymphocytes/100 WBC (Bld) 26.9 % Normal 20.0 - 45.0 [facility] Comment on above: Performed By: #### 2 19414 #### [facility],[address] [place] [address] MANUAL DIFF N/A Normal [facility] Comment on above: Performed By: #### 2 83915 #### [facility],[address] [place] [address] MCH (RBC) [Entitic mass] 30 pg Normal 27 - 33 [facility] Comment on above: Performed By: #### 2 00248 #### [facility],[address] [place] [address] MCHC 35 X10 3 Normal 32 - 36 [facility] Comment on above: Performed By: #### 2 78224 #### [facility],[address] [place], [place] [id number] MCV (RBC) [Entitic vol] 87 fL Normal 81 - 98 [facility] Comment on above: Performed By: #### 2 13858 #### [facility],[address] [place] [address] Meriwether # 1.20 x10EE3/UL High 0.20 - 1.00 [facility] Comment on above: Performed By: #### 2 11359 #### [facility],[address] [place], [place] [id number] MONOS % 7.6 % Normal 0.0 - 10.0 [facility] Comment on above: Performed By: #### 2 49241 #### [facility],[address] [place], [place] [phone] Morphology Zach (Bld) [Interp] N/A Normal [facility] Comment on above: Result Comment: {CD] Performed By: #### 2 78217 #### [facility],[address] [place] [address] Neut # 9.40 x10EE3/UL High 1.50 - 7.10 [facility] Comment on above: Performed By: #### 2 05132 #### [address] [address] Neutrophils/100 WBC (Bld) 61.1 % Normal 46.0 - 76.0 [facility] Comment on above: Performed By: #### 2 76708 #### [address] [address] PLATELET 201 x10EE3/UL Normal 150 - 450 [facility] Comment on above: Performed By: #### 2 45822 #### [address] [address] Platelet mean volume (Bld) [Entitic vol] 9.0 fL Normal 6.4 - 10.5 [facility] Comment on above: Result Comment: AUTO MATED DIFFERENTIAL Performed By: #### 2 81601 #### [address] [address] RBC 5.48 x 10EE6/UL Normal 4.50 - 6.00 [facility] Comment on above: Performed By: #### 2 78155 #### [address] [address] WBC 15.4 x 10EE3/UL High 4.5 - 10.8 [facility] Comment on above: Performed By: #### 2 54256 #### [address] [address] CHEST 1 VIEWon 12-23-2021 CHEST 1 VIEW [place] [address] Patient: LAKISHA [place]VER Phone#: : [phone] Age: 41 Gender: M Pt. Type: ER Account: [id number] Location: 052 Ordering: DEISY ASHFORD Exam Date: 12/23/2021/19:23 Family Phys: JONATHAN SALEEM Charge Code: [id number] Physician: [place] Order #: [id number] DLP Dose#: PROCEDURE: X-RAY CHEST 1 VIEW COMPARISON: None. INDICATIONS: Pneumonia. FINDINGS: LUNGS: Normal. No significant pulmonary parenchymal abnormalities. VASCULATURE: Normal. Unremarkable pulmonary vasculature. CARDIAC: Normal. No cardiac silhouette abnormality or cardiomegaly. MEDIASTINUM: Normal. No visible mass or adenopathy. PLEURA: Normal. No effusion or pleural thickening. BONES: Normal. No fracture or visible bony lesion. OTHER: Negative. There is elevation of the right hemidiaphragm. CONCLUSION: No acute disease. Dictated by: Jen Hill MD on 12/23/2021 at 19:22 Approved by: Jen Hill MD on 12/23/2021 at 19:[address] [facility] CMP with eGFRon 12-23-2021 AGE [address] [facility] Comment on above: Performed By: #### 2 24039 #### [facility],[address] [place] [address] Albumin [Mass/Vol] 4.2 g/dL Normal 3.4 - 5.0 [facility] Comment on above: Performed By: #### 2 49129 #### [facility],[address] [place] [address] Albumin/Globulin [Mass ratio] 1.1 {ratio} Normal 0.9 - 1.6 [facility] Comment on above: Performed By: #### 2 86487 #### [facility],[address] [place] [address] ALK PHOS 113 U/L Normal 46 - 116 [facility] Comment on above: Performed By: #### 2 29606 #### [facility],[address] [place] [address] ALT [Catalytic activity/Vol] 65 U/L High 16 - 63 [facility] Comment on above: Performed By: #### 2 90489 #### [facility],[address] [place] [address]53 Anion gap [Moles/Vol] 13 mmol/L Normal 10 - 20 [facility] Comment on above: Performed By: #### 2 82737 #### [facility],[address] [place] [address] AST [Catalytic activity/Vol] 32 U/L Normal 15 - 37 [facility] Comment on above: Performed By: #### 2 45392 #### [facility],[address] [place] [address] B/C RATIO 21 ratio Normal 0 - 30 [facility] Comment on above: Performed By: #### 2 87683 #### [facility],[address] [place] [address] Bilirubin [Mass/Vol] 0.4 mg/dL Normal 0.2 - 1.0 [facility] Comment on above: Performed By: #### 2 47966 #### [facility],[address] [place] [address] Calcium [Mass/Vol] 9.8 mg/dL Normal 8.5 - 10.1 [facility] Comment on above: Performed By: #### 2 27905 #### [facility],[address] [place] [address]51 Chloride [Moles/Vol] 101 mmol/L Normal 98 - 107 [facility] Comment on above: Performed By: #### 2 87113 #### [facility],[address] [place] [address] CMP with eGFR Normal [facility] Comment on above: Result Comment: COMP REHENSIVE METABOLIC PANEL Performed By: #### 2 97268 #### [facility],[address] [place] [address] 84625 CO2 [Moles/Vol] 25.2 mmol/L Normal 21.0 - 32.0 [facility] Comment on above: Performed By: #### 2 54988 #### [facility],[address] [place] [address] Creatinine [Mass/Vol] 0.90 mg/dL Normal 0.70 - 1.30 [facility] Comment on above: Performed By: #### 2 89813 #### [facility],[address] [place], [place] [address] GFR/1.73 sq M.predicted among non-blacks MDRD (S/P/Bld) [Vol rate/Area] mL/min/{1.73_m2} Normal 60 - 999 [facility] Comment on above: Performed By: #### 2 37277 #### [facility],[address] [place] [address] Result Comment: ACCO RDING TO THE NATIONAL KIDNEY DISEASE EDUCATION PROGRAM(NKDE), A NORMAL eGFR IS A VALUE GREATER THAN OR EQUAL TO 60 ML/MIN/1.73 SQ METERS. CHRONIC KIDNEY DISEASE: <60mL/MIN/1.73 SQ METERS KIDNEY FAILURE: <15mL/MIN/1.73 SQ METERS THIS TEST SHOULD ONLY BE USED FOR PATIENTS 18 YEARS OF AGE AND OLDER. Globulin (S) [Mass/Vol] 3.9 g/dL High 1.5 - 3.8 [facility] Comment on above: Performed By: #### 2 69880 #### [facility],[address] [place], [place] [phone] Glucose [Mass/Vol] 141 mg/dL High 74 - 106 [facility] Comment on above: Performed By: #### 2 51324 #### [facility],[address] [place], [place] [phone] Potassium [Moles/Vol] 4.4 mmol/L Normal 3.5 - 5.1 [facility] Comment on above: Performed By: #### 2 18400 #### [facility],[address] [place] [address] Protein [Mass/Vol] 8.1 g/dL Normal 6.4 - 8.2 [facility] Comment on above: Performed By: #### 2 10165 #### [facility],[address] [place] [address] Sodium [Moles/Vol] 135 mmol/L Low 136 - 145 [facility] Comment on above: Performed By: #### 2 59317 #### [facility],[address] [place] [address] Urea nitrogen [Mass/Vol] 19 mg/dL High 7 - 18 [facility] Comment on above: Performed By: #### 2 72160 #### [facility],[address] [place] [address] CORONAVIRUS (SARS) ANTIGEN T ESTon 12-23-2021 EXTERNAL QC DONE? YES Normal [facility] Comment on above: Performed By: #### 2 82226 #### [facility],[address] [place] [address] INTERNAL CONTROL PASS Normal [facility] Comment on above: Performed By: #### 2 88536 #### [facility],[address] [place], [place] [phone] SARS ANTIGEN Negative Normal NORMAL: NEGATIVE [facility] Comment on above: Performed By: #### 2 03992 #### [facility],[address] [place] [address] SEND TO ? NO Normal [facility] Comment on above: Result Comment: SARS -CoV-2 THIS TEST IS BEING USED UNDER THE FDA EUA PROCEDURE. THIS ASSAY HAS BEEN VALIDATED AT [facility] FOR USE WITH NASAL AND NASOPHARYNGEAL SWAB SPECIMENS. INTERPRETIVE DATA TEST RESULTS SHOULD ALWAYS BE CONSIDERED IN THE CONTEXT OF CLINICAL OBSERVATIONS AND EPIDEMIOLOGICAL DATA IN MAKING FINAL DIAGNOSIS AND PATIENT MANAGEMENT DECISIONS. PATIENT MANAGEMENT SHOULD FOLLOW CURRENT CDC GUIDELINES. THE KAREN SARS ANTIGEN DRAKE DOES NOT DIFFERENTIATE BETWEEN SARS-CoV & SARS-CoV-2. A POSITIVE TEST RESULT INDICATES THE PRESENCE OF SARS-CoV-2 NUCLEOCAPSID PROTEIN ANTIGEN, AND THE PATIENT IS INFECTED WITH THE VIRUS AND PRESUMED TO BE CONTAGIOUS. A NEGATIVE TEST RESULT FOR THIS TEST MEANS THAT SARS-CoV-2 NUCLEOCAPSID PROTEIN ANTIGEN WAS NOT PRESENT IN THE SPECIMEN ABOVE THE LIMIT OF DETECTION. HOWEVER, A NEGATIVE RESULT DOES NOT RULE OUT COVID-19 AND SHOULD NOT BE USED THE SOLE BASIS FOR TREATMENT OR PATIENT MANAGEMENT DECISIONS. A NEGATIVE RESULT DOES NOT EXCLUDE THE POSSIBILITY OF COVID-19. NEGATIVE RESULTS, FROM PATIENTS WITH SYMPTOM ONSET BEYOND FIVE DAYS, SHOULD BE TREATED PRESUMPTIVE AND CONFIRMATION WITH A MOLECULAR ASSAY, IF NECESSARY, FOR PATIENT MANAGEMENT, MAY BE PERFORMED. WHEN DIAGNOSTIC TESTING IS NEGATIVE, THE POSSIBLILTY OF A FALSE NEGATIVE RESULT SHOULD BE CONSIDERED IN THE CONTEXT OF A PATIENT'S RECENT EXPOSURES AND THE PRESENCE OF CLINICAL SIGNS AND SYMPTOMS CONSISTENT WITH COVID-19. THE POSSIBILITY OF A FALSE NEGATIVE RESULT SHOULD ESPECIALLY BE CONSIDERED IF THE PATIENT'S RECENT EXPOSURES OR CLINICAL PRESENTATION INDICATE THAT COVID-19 IS LIKELY, AND DIAGNOSTIC TESTS FOR OTHER CAUSES OF ILLNESS (e.g., OTHER RESPIRATORY ILLNESS) ARE NEGATIVE. IF COVID-19 IS STILL SUSPECTED BASED ON EXPOSURE HISTORY TOGETHER WITH OTHER CLINICAL FINDINGS, RE-TESTING SHOULD BE CONSIDERED BY HEALTHCARE PROVIDERS IN CONSULTATION WITH PUBLIC HEALTH AUTHORITIES. Performed By: #### 2 96894 #### [facility],[address] [place], [place] [phone] CULT STREP REFLEX ONLYon CULT STREP REFLEX ONLY CULT STREP REFLEX ONLY _REFLEX STREP SCREEN CULTURE ONLY_ M I C R O B I O L O G Y R E P O R T FINAL --------- Antimicrobial Susceptibility and Organism Identification Report Specimen Number : [id number] Requested : 12/23/21 Specimen Source : THROAT Collected : 12/23/21 20:15 [place] [facility] : EMERGENCY ROOM Received : 12/23/21 20:15 Requesting Physician : DEJON Patient/Specimen Tests and Comments Specimen Comments FINAL REPORT: NEGATIVE FOR GROUP A BETA STREP Tech : __ Source : THROAT ID # : [id number] FINAL Report Date : / / : Collected : 12/23/21 20:15 12/26/21.1315.BKO. 12/25/21.1602.KLS. 12/26/21.1314.BKO.COMPLE TE Normal [facility] Comment on above: Performed By: #### 2 88669 #### [facility],[address] [place] [address] RAPID STREPon 12-23-2021 S. pyogenes Ag IA Ql (Unsp spec) Rapid Strep NEG:GRP A STREP INTERNAL QC PASS EXTERNAL QC DONE? YES Normal [facility] Comment on above: Performed By: #### 2 68723 #### [facility],[address] [place] [id number] Absolute lymphocyte counton 12-12-2021 Lymphocytes Auto (Unsp spec) [#/Vol] 2.97 10*3/uL 0.83-4.51 [facility] Work Phone: Basophil percentageon 2021 Basophils/100 WBC (Bld) 0.4 % 0-1 [facility] Work Phone: Bilirubin [Mass/Vol] 0.70 mg/dL 0.20-1.00 [facility] Work Phone: Comment on above: For patients on eltr ombopag therapy, use of Dimension [place] TBIL is not recommended. Chloride [Moles/Vol] 102 mmol/L 98-107 [facility] Work Phone: Eosinophils/100 WBC (Bld) 3.8 % 0-5 [facility] Work Phone: Glucose [Mass/Vol] 303 mg/dL 74-106 [facility] Work Phone: Comment on above: Glucose result great er than or equal to 200 mg/dLsuggests DIABETES MELLITUS per A.D.A. criteria. Neutrophils (Bld) [#/Vol] 6.7 10*3/uL 2.0-7.7 [facility] Work Phone: Neutrophils/100 WBC (Bld) 58.7 % 47-70 [facility] Work Phone: Potassium [Moles/Vol] 3.4 mmol/L 3.5-5.1 [facility] Work Phone: Protein [Mass/Vol] 7.7 g/dL 6.4-8.2 [facility] Work Phone: Sodium [Moles/Vol] 134 mmol/L 136-145 [facility] Work Phone: WBC (Bld) [#/Vol] 11.4 10*3/uL 4.4-11.[address] [facility] Work Phone: Blood erythrocytes count (nu mber/volume)on 12-12-2021 RBC (Bld) [#/Vol] 5.57 10*6/uL 4.6-6.[address] [facility] Work Phone: Blood hemoglobin measurement (mass/volume)on 12-12-2021 Hemoglobin (Bld) [Mass/Vol] 17.0 g/dL 13.0-16.5 [facility] Work Phone: Blood lymphocytes/100 leukoc yteson 12-12-2021 Lymphocytes/100 WBC (Bld) 26.2 % 19-41 [facility] Work Phone: Blood monocytes/100 leukocyt eson 12-12-2021 Monocytes/100 WBC (Bld) 10.6 % 0-10 [facility] Work Phone: Blood platelet mean volumeon 12-12-2021 Platelet mean volume (Bld) [Entitic vol] 11.1 fL 6.2-12.0 [facility] Work Phone: Determination of erythrocyte mean corpuscular volume (MCV)on 12-12-2021 MCV (RBC) [Entitic vol] 82.4 fL 80-94 [facility] Work Phone: Hematocrit Auto (Bld) [Volum e fraction]on 12-12-2021 Hematocrit (Bld) [Volume fraction] 45.9 % 40-54 [facility] Work Phone: Laboratory - Chemistry and C hemistry - challengeon 12-12-2021 ALP [Catalytic activity/Vol] 87 U/L 45-117 [facility] Work Phone: ALT [Catalytic activity/Vol] 52 U/L 16-61 [facility] Work Phone: CO2 [Moles/Vol] 20.0 mmol/L 21.0-32.0 [facility] Work Phone: Globulin (S) [Mass/Vol] 3.6 g/dL 2.2-4.2 [facility] Work Phone: Urea nitrogen/Creatinine [Mass ratio] 24.0 mg/mg 10-20 [facility] Work Phone: Laboratory - Hematology and Cell countson 12-12-2021 Erythrocyte distribution width (RBC) [Entitic vol] 37.5 fL 35.1-43.9 [facility] Work Phone: Erythrocyte distribution width (RBC) [Ratio] 12.3 % 11.6-14.6 [facility] Work Phone: Immature granulocytes/100 WBC (Bld) 0.300 % 0.0-0.9 [facility] Work Phone: Comment on above: IG% - Immature Granu locytes (promyelocytes, myelocytes and metamyelocytes) > 1% indicates that a LEFT SHIFT is Present. MCH (RBC) [Entitic mass] 30.5 pg 27.0-32.0 [facility] Work Phone: Nucleated RBC/100 WBC (Bld) [Ratio] 0 % 0-5 [facility] Work Phone: MCHC Auto (RBC) [Mass/Vol]on 12-12-2021 MCHC (RBC) [Mass/Vol] 37.0 g/dL 32-36 [facility] Work Phone: No Panel Informationon 12-12 Estimated Creatinine Clearance Calc 95.48 ml/min [facility] Work Phone: Estimated GFR (MDRD) Amer 82 mL/min >60 [facility] Work Phone: Comment on above: GFR Calc Estimated GFR (MDRD) Non-Af Amer 68 mL/min >60 [facility] Work Phone: Comment on above: Non- GFR Calc Troponin I High Sensitivity < 3 pg/mL 3.0-78.0 [facility] Work Phone: Comment on above: Please Note: New Ayan t Units and Gender Specific Reference Ranges. For more information see Policy Stat Procedure [place] High Sensitivity Troponin (TNIH) and attachments. Platelets bldon 12-12-2021 Platelets (Bld) [#/Vol] 202 10*3/uL 150-450 [facility] Work Phone: Serum or plasma albumin reta urement (mass/volume)on 12-12-2021 Albumin [Mass/Vol] 4.1 g/dL 3.2-5.0 [facility] Work Phone: Serum or plasma albumin/glob ulin mass ratioon 12-12-2021 Albumin/Globulin [Mass ratio] 1.1 {ratio} 0.9-2.4 [facility] Work Phone: Serum or plasma calcium reta urement (mass/volume)on 12-12-2021 Calcium [Mass/Vol] 8.8 mg/dL 8.5-10.1 [facility] Work Phone: Serum or plasma creatinine m easurement (mass/volume)on 12-12-2021 Creatinine [Mass/Vol] 1.25 mg/dL 0.70-1.30 [facility] Work Phone: Comment on above: The validity of the calculated GFR & GFRAA in patients over 70 years has not been determined. Clinical correlation is essential. Serum or plasma urea nitroge n measurement (mass/volume)on 12-12-2021 Urea nitrogen [Mass/Vol] 30 mg/dL 7-18 [facility] Work Phone: Thin prep Papanicolaou smear with manual screeningon 12-12-2021 Thin prep Papanicolaou smear with manual screening 21 U/L 15-37 [facility] Work Phone: Thin prep Papanicolaou smear with manual screening 12 5-15 [facility] Work Phone: EMERGENCY REPORTon 2 EMERGENCY REPORT [facility] EMERGENCY RO[facility] REPORT NAME ACCOUNT SEX AGE ADMIT DISCHARGE PT MED. RECORD# NUMBER DATE DATE TYPE LAKISHA, [id number] M 41 10/26/21 10/26/21 3 [place] [id number] ROOM: ER DATE OF : 1980 DICTATING PHYSICIAN: Colin Gould HISTORY OF PRESENT ILLNESS: This is a 41-year-old male who presents with left forehead, eye and ear pain. He states it has been present for the past 3 to 4 days. It is sharp in nature. He denies any vision change. He denies any fever, chills, or neck pain. He denies any head injury or trauma. He denies any sick contacts. PAST MEDICAL HISTORY: Diabetes. PAST SURGICAL HISTORY: Noncontributory. SOCIAL HISTORY: He denies any drug or alcohol abuse. REVIEW OF SYSTEMS: Ten systems were reviewed and otherwise negative unless stated above. PHYSICAL EXAMINATION: GENERAL: The patient appears well and nontoxic. HEENT: Head is normocephalic without evidence of trauma. Eyes: Extraocular motions are intact, PERRLA. Slight swelling to the left upper eyelid. Slight conjunctival injection. Mouth: No intraoral lesions. Ears are clear bilaterally. NECK: Trachea is midline. Supple. Full range of motion. No signs of meningismus. LUNGS: Lungs are clear to auscultation. HEART: S1 and S2 appreciated without murmur. SKIN: Evidence of vesicular crusting lesions to the left forehead. EMERGENCY DEPARTMENT COURSE AND TREATMENT: The patient appears well and nontoxic. The patient has shingles and will be treated with prednisone, acyclovir, ketorolac, and acyclovir drops for his left eye. The patient was given one Percocet in the Emergency Department. He was advised to monitor his glucose closely, and if it begins to significantly increase stop the prednisone. He was given PCP follow-up. He was asked to return for new or worsening symptoms. The patient was agreeable and discharged home in stable condition. DIAGNOSIS: Herpes zoster. Dictated By: Colin Gould DO 10/26/21 13:13 JOB #: [id number] Transcribed By: espinoza 10/26/21 15:40 Electronically signed by: E-SIGN: Colin Gould D.O. 12/10/21 08:21 Page 1 of 1 [place] Emergency Room Report Normal [facility] Glucose (Bld) [Mass/Vol]on 0 09-27-2021 Glucose [Mass/Vol] 225 mg/dL High 65 - 99 mg/dL [facility] Interpretation and review of laboratory results Abnormal [facility] Glucose [Mass/Vol] 282 mg/dL High 65 - 99 mg/dL [facility] Interpretation and review of laboratory results Abnormal [facility] Glucose [Mass/Vol] 298 mg/dL High 65 - 99 mg/dL [facility] Interpretation and review of laboratory results Abnormal [facility] Glucose (Bld) [Mass/Vol]on 0 09-26-2021 Glucose [Mass/Vol] 362 mg/dL High 65 - 99 mg/dL [facility] Interpretation and review of laboratory results Abnormal [facility] Glucose [Mass/Vol] 332 mg/dL High 65 - 99 mg/dL [facility] Interpretation and review of laboratory results Abnormal [facility] Glucose [Mass/Vol] 297 mg/dL High 65 - 99 mg/dL [facility] Interpretation and review of laboratory results Abnormal [facility] Glucose [Mass/Vol] 297 mg/dL High 65 - 99 mg/dL [facility] Interpretation and review of laboratory results Abnormal [facility] Glucose [Mass/Vol] 294 mg/dL High 65 - 99 mg/dL [facility] Interpretation and review of laboratory results Abnormal [facility] Glucose [Mass/Vol] 282 mg/dL High 65 - 99 mg/dL [facility] Interpretation and review of laboratory results Abnormal [facility] Glucose (Bld) [Mass/Vol]on 0 09-25-2021 Glucose [Mass/Vol] 331 mg/dL High 65 - 99 mg/dL [facility] Interpretation and review of laboratory results Abnormal [facility] Glucose [Mass/Vol] 311 mg/dL High 65 - 99 mg/dL [facility] Interpretation and review of laboratory results Abnormal [facility] Glucose [Mass/Vol] 211 mg/dL High 65 - 99 mg/dL [facility] Interpretation and review of laboratory results Abnormal [facility] Glucose [Mass/Vol] 260 mg/dL High 65 - 99 mg/dL [facility] Interpretation and review of laboratory results Abnormal [facility] Glucose [Mass/Vol] 309 mg/dL High 65 - 99 mg/dL [facility] Interpretation and review of laboratory results Abnormal [facility] Glucose (Bld) [Mass/Vol]on 0 09-24-2021 Glucose [Mass/Vol] 292 mg/dL High 65 - 99 mg/dL [facility] Interpretation and review of laboratory results Abnormal [facility] Glucose [Mass/Vol] 335 mg/dL High 65 - 99 mg/dL [facility] Interpretation and review of laboratory results Abnormal [facility] Glucose [Mass/Vol] 314 mg/dL High 65 - 99 mg/dL [facility] Interpretation and review of laboratory results Abnormal [facility] Glucose [Mass/Vol] 326 mg/dL High 65 - 99 mg/dL [facility] Interpretation and review of laboratory results Abnormal [facility] Glucose [Mass/Vol] 265 mg/dL High 65 - 99 mg/dL [facility] Interpretation and review of laboratory results Abnormal [facility] Glucose [Mass/Vol] 301 mg/dL High 65 - 99 mg/dL [facility] Interpretation and review of laboratory results Abnormal [facility] Glucose (Bld) [Mass/Vol]on 0 09-23-2021 Glucose [Mass/Vol] 267 mg/dL High 65 - 99 mg/dL [facility] Interpretation and review of laboratory results Abnormal [facility] Glucose [Mass/Vol] 206 mg/dL High 65 - 99 mg/dL [facility] Interpretation and review of laboratory results Abnormal [facility] Glucose [Mass/Vol] 243 mg/dL High 65 - 99 mg/dL [facility] Interpretation and review of laboratory results Abnormal [facility] Glucose [Mass/Vol] 256 mg/dL High 65 - 99 mg/dL [facility] Interpretation and review of laboratory results Abnormal [facility] Basic metabolic 2000 panelon 09-22-2021 Anion gap [Moles/Vol] 20 mmol/L 10 - 20 mmol/L [facility] Calcium [Mass/Vol] 10.2 mg/dL 8.4 - 10. 2 mg/dL [facility] Chloride [Moles/Vol] 100 mmol/L 98 - 108 mmol/L [facility] Creatinine [Mass/Vol] 0.79 mg/dL 0.50 - 1.30 [facility] GFR/1.73 sq M.predicted CKD-EPI (S/P/Bld) [Vol rate/Area] 112 >=60 mL/min/1.73 m2 [facility] Glucose [Mass/Vol] 307 mg/dL High 65 - 99 mg/dL [facility] HCO3 [Moles/Vol] 21 mmol/L 21 - 32 mmol/L [facility] Interpretation and review of laboratory results Abnormal [facility] Potassium [Moles/Vol] 4.7 mmol/L 3.5 - 5.1 mmol/L [facility] Sodium [Moles/Vol] 136 mmol/L 135 - 145 mmol/L [facility] Urea nitrogen [Mass/Vol] 27 mg/dL High 8 - 25 mg/dL [facility] Urea nitrogen/Creatinine [Mass ratio] 34.2 mg/mg High [facility] The eGFR should be u sed for monitoring renal function only and not for medication dosing. [facility] CBC panel Auto (Bld)on 09-22 Erythrocyte distribution width (RBC) [Entitic vol] 11.9 % 11.6 - 14.8 % [facility] Hematocrit (Bld) [Volume fraction] 46.6 % 41.0 - 53.0 % [facility] Hemoglobin (Bld) [Mass/Vol] 16.3 g/dL 13.5 - 17.5 g/dL [facility] Interpretation and review of laboratory results Abnormal [facility] MCH (RBC) [Entitic mass] 29.6 pg 26.0 - 34.0 pg [facility] MCHC (RBC) [Mass/Vol] 35.0 g/dL 31.0 - 37.0 g/dL [facility] MCV (RBC) [Entitic vol] 84.7 fL 80.0 - 100.0 fL [facility] Nucleated RBC (Bld) [#/Vol] 0.00 10*3/uL [facility] Nucleated RBC/100 WBC (Bld) [Ratio] 0.0 % [facility] Platelet mean volume (Bld) [Entitic vol] 11.2 fL 9.4 - 12.4 fL [facility] Platelets (Bld) [#/Vol] 137 10*3/uL Low [facility] RBC (Bld) [#/Vol] 5.50 10*6/uL [facility] WBC (Bld) [#/Vol] 10.07 10*3/uL [facility] Glucose (Bld) [Mass/Vol]on 0 09-22-2021 Glucose [Mass/Vol] 228 mg/dL High 65 - 99 mg/dL [facility] Interpretation and review of laboratory results Abnormal [facility] Glucose [Mass/Vol] 211 mg/dL High 65 - 99 mg/dL [facility] Interpretation and review of laboratory results Abnormal [facility] Glucose [Mass/Vol] 213 mg/dL High 65 - 99 mg/dL [facility] Interpretation and review of laboratory results Abnormal [facility] Glucose [Mass/Vol] 309 mg/dL High 65 - 99 mg/dL [facility] Interpretation and review of laboratory results Abnormal [facility] HbA1c (Bld) [Mass fraction]o n 09-22-2021 Average glucose Estimated from glycated hemoglobin (Bld) [Mass/Vol] 269 mg/dL High 74 - 114 mg/dL [facility] Interpretation and review of laboratory results Abnormal [facility] Normal: 4.2% - 5.6% Increased risk for diabetes: 5.7% - 6.4% Diabetes: >= 6.5% Pediatrics: No established reference range Estimated average glucose: 74-114 mg/dL [facility] Hemoglobin A1con 09-22-2021 HbA1c (Bld) [Mass fraction] 11.0 % High 4.2 - 5.6 % [facility] Basophil percentageon 2021 Chloride [Moles/Vol] 103 mmol/L 98-107 [facility] Work Phone: Glucose [Mass/Vol] 371 mg/dL 74-106 [facility] Work Phone: Comment on above: Glucose result great er than or equal to 200 mg/dLsuggests DIABETES MELLITUS per A.D.A. criteria. Potassium [Moles/Vol] 4.2 mmol/L 3.5-5.1 [facility] Work Phone: Sodium [Moles/Vol] 135 mmol/L 136-145 [facility] Work Phone: Glucose Glucometer (BldC) [M ass/Vol]on 09-21-2021 Glucose [Mass/Vol] 319 mg/dL 74-106 [facility] Work Phone: Comment on above: MANAGEMENT OF PATIEN T CARE PER NURSING PROTOCOL Laboratory - Chemistry and C hemistry - challengeon 09-21-2021 CO2 [Moles/Vol] 24.0 mmol/L 21.0-32.0 [facility] Work Phone: Urea nitrogen/Creatinine [Mass ratio] 21.4 mg/mg 10-20 [facility] Work Phone: No Panel Informationon 09-21 Estimated Creatinine Clearance Calc 85.25 ml/min [facility] Work Phone: Estimated GFR (MDRD) Amer 72 mL/min >60 [facility] Work Phone: Comment on above: GFR Calc Estimated GFR (MDRD) Non-Af Amer 59 mL/min >60 [facility] Work Phone: Comment on above: Non- GFR Calc Serum or plasma calcium reat urement (mass/volume)on 09-21-2021 Calcium [Mass/Vol] 9.5 mg/dL 8.5-10.1 [facility] Work Phone: Serum or plasma creatinine m easurement (mass/volume)on 09-21-2021 Creatinine [Mass/Vol] 1.40 mg/dL 0.70-1.30 [facility] Work Phone: Comment on above: The validity of the calculated GFR & GFRAA in patients over 70 years has not been determined. Clinical correlation is essential. Serum or plasma urea nitroge n measurement (mass/volume)on 09-21-2021 Urea nitrogen [Mass/Vol] 30 mg/dL 7-18 [facility] Work Phone: Thin prep Papanicolaou smear with manual screeningon 09-21-2021 Thin prep Papanicolaou smear with manual screening 8 5-15 [facility] Work Phone: Absolute lymphocyte counton 09-20-2021 Lymphocytes Auto (Unsp spec) [#/Vol] 4.70 10*3/uL 0.83-4.51 [facility] Work Phone: Basophil percentageon 2021 Basophils/100 WBC (Bld) 0.5 % 0-1 [facility] Work Phone: Bilirubin [Mass/Vol] 1.00 mg/dL 0.20-1.00 [facility] Work Phone: Comment on above: For patients on eltr ombopag therapy, use of Dimension [place] TBIL is not recommended. Eosinophils/100 WBC (Bld) 1.3 % 0-5 [facility] Work Phone: Neutrophils (Bld) [#/Vol] 6.5 10*3/uL 2.0-7.7 [facility] Work Phone: Neutrophils/100 WBC (Bld) 50.9 % 47-70 [facility] Work Phone: Protein [Mass/Vol] 7.9 g/dL 6.4-8.2 [facility] Work Phone: WBC (Bld) [#/Vol] 12.7 10*3/uL 4.4-11.[address] [facility] Work Phone: Blood erythrocytes count (nu mber/volume)on 09-20-2021 RBC (Bld) [#/Vol] 5.77 10*6/uL 4.6-6.[address] [facility] Work Phone: Blood hemoglobin measurement (mass/volume)on 09-20-2021 Hemoglobin (Bld) [Mass/Vol] 17.1 g/dL 13.0-16.5 [facility] Work Phone: Blood lymphocytes/100 leukoc yteson 09-20-2021 Lymphocytes/100 WBC (Bld) 37.1 % 19-41 [facility] Work Phone: Blood monocytes/100 leukocyt eson 09-20-2021 Monocytes/100 WBC (Bld) 10.0 % 0-10 [facility] Work Phone: Blood platelet mean volumeon 09-20-2021 Platelet mean volume (Bld) [Entitic vol] 11.0 fL 6.2-12.0 [facility] Work Phone: Determination of erythrocyte mean corpuscular volume (MCV)on 09-20-2021 MCV (RBC) [Entitic vol] 80.8 fL 80-94 [facility] Work Phone: Hematocrit Auto (Bld) [Volum e fraction]on 09-20-2021 Hematocrit (Bld) [Volume fraction] 46.6 % 40-54 [facility] Work Phone: Laboratory - Chemistry and C hemistry - challengeon 09-20-2021 ALP [Catalytic activity/Vol] 85 U/L 45-117 [facility] Work Phone: ALT [Catalytic activity/Vol] 42 U/L 16-61 [facility] Work Phone: Globulin (S) [Mass/Vol] 3.5 g/dL 2.2-4.2 [facility] Work Phone: Laboratory - Drug toxicology on 09-20-2021 Amphetamines Ql (U) Negative <1000 ng/mL [facility] Work Phone: Benzodiazepines Ql (U) Negative < 200 ng/mL [facility] Work Phone: Cannabinoids Screen Ql (U) Negative < 50 ng/mL [facility] Work Phone: Cocaine Ql (U) Positive < 300 ng/mL [facility] Work Phone: Opiates Ql (U) Negative < 300 ng/mL [facility] Work Phone: Laboratory - Hematology and Cell countson 09-20-2021 Erythrocyte distribution width (RBC) [Entitic vol] 34.5 fL 35.1-43.9 [facility] Work Phone: Erythrocyte distribution width (RBC) [Ratio] 11.9 % 11.6-14.6 [facility] Work Phone: Immature granulocytes/100 WBC (Bld) 0.200 % 0.0-0.9 [facility] Work Phone: Comment on above: IG% - Immature Granu locytes (promyelocytes, myelocytes and metamyelocytes) > 1% indicates that a LEFT SHIFT is Present. MCH (RBC) [Entitic mass] 29.6 pg 27.0-32.0 [facility] Work Phone: Nucleated RBC/100 WBC (Bld) [Ratio] 0 % 0-5 [facility] Work Phone: MCHC Auto (RBC) [Mass/Vol]on 09-20-2021 MCHC (RBC) [Mass/Vol] 36.7 g/dL 32-36 [facility] Work Phone: No Panel Informationon 09-20 MDMA (Ecstasy) Screen Negative < 500 ng/mL [facility] Work Phone: Urine Barbiturates Screen Negative < 200 ng/mL [facility] Work Phone: Urine Drug Screen Comment [facility] Work Phone: Comment on above: CONFIRMATORY TESTING FOR ALL POSITIVE URINE DRUG SCREENRESULTS WILL ONLY BE SENT OUT UPON PHYSICIAN ORDER. VISTA Urine Drug Screen methods provide only preliminaryanalytical test results. A more specific alternate chemicalmethod must be used in order to obtain a confirmedanalytical result. Gas chromatography/mass spectrometery(GC/MS) is the preferred confirmatory method. Clinicalconsideration and professional judgement should be appliedto any drug of abuse test result, particularly whenpreliminary positive results are used. URINE TCA TESTING MUST BE ORDERED SEPARATELY. USE TESTMNEMONIC: [facility] Urine Methadone Screen Negative < 300 ng/mL [facility] Work Phone: Ethyl Alcohol Level < 3.0 mg/dL [facility] Work Phone: Comment on above: The serum:whole bloo d ethanol ratio is approximately 1.14and varies slightly with hematocrit. Medical Alcohol reference interval and critical value innon-tolerant individuals; 50 - 100 Impairment 100 Intoxication 100 - 250 Severe Poisoning 250 - 400 Deep/possible fatal coma Valproic Acid (Depakene) Level < 3 ug/mL 50-100 [facility] Work Phone: Platelets bldon 09-20-2021 Platelets (Bld) [#/Vol] 179 10*3/uL 150-450 [facility] Work Phone: Serum or plasma albumin reta urement (mass/volume)on 09-20-2021 Albumin [Mass/Vol] 4.4 g/dL 3.2-5.0 [facility] Work Phone: Serum or plasma albumin/glob ulin mass ratioon 09-20-2021 Albumin/Globulin [Mass ratio] 1.3 {ratio} 0.9-2.4 [facility] Work Phone: Thin prep Papanicolaou smear with manual screeningon 09-20-2021 Thin prep Papanicolaou smear with manual screening 19 U/L 15-37 [facility] Work Phone: Urine phencyclidine (PCP) de tectionon 09-20-2021 Phencyclidine Ql (U) Negative < 25 ng/mL [facility] Work Phone: UA DIP, URINE (POC)on 2021 BILIRUBIN UA (POCT) Negative Negative [facility] CLARITY UA (POCT) Clear [facility] COLOR UA (POCT) Dark yellow [facility] d [facility] GLUCOSE UA (POCT) >=1000 Abnormal Negative mg/dL [facility] HEMOGLOBIN/BLOOD UA (POCT) Negative Negative [facility] KETONE UA (POCT) 15 mg/dL Abnormal Negative mg/dL [facility] LEUKOCYTES UA (POCT) Negative Negative [facility] NITRITE UA (POCT) Negative Negative [facility] PH UA (POCT) 6.0 4.5 - 8.0 [facility] Protein Ql (U) 100 mg/dL Abnormal Negative mg/dL [facility] SPECIFIC GRAVITY UA (POCT) >=1.030 1.005 - 1.030 [facility] UROBILINOGEN UA (POCT) 0.2 E.U./dL Normal E.U./dL [facility] No Panel Informationon 05-18 Radiology Study observation (narrative) [facility] XR Ankle - left AP and Later al and obliqueon 05-18-2020 IMPRESSION: No fract ure or dislocation Supervisor Metalizing: REKHA Transcribe Date/Time: May 18 2020 11:17A Dictated by : IVANNA MONTES DE OCA MD This examination was interpreted and the report reviewed and electronically signed by: IVANNA MONTES DE OCA MD on May 18 2020 11:19AM [facility] DIVISION OF RADIOLOGY * * *Final Report* * * DATE OF EXAM: May 18 2020 11:10AM WOX [id number] - XR ANKLE 3V AP/LAT/OBL LT / PROCEDURE REASON: Injury of left ankle, initial encounter * * * * Physician Interpretation * * * * HISTORY: Injury of left ankle, initial encounter pt states rolled his left ankle last night, pain lateral side Pain in left malleous, into proximal 4, 5 metatarsals TECHNIQUE: 3 upright views COMPARISON: None RESULT: No acute bony or joint findings. Lateral talar calcaneal spurring is noted. Small bony ossicle lateral to the calcaneus appears well-corticated. DIVISION OF RADIOLOGY Provider, [facility] - 05/18/2020 * * *Final Report* * * DATE OF EXAM: May 18 2020 11:10AM WOX 5298 - XR ANKLE 3V AP/LAT/OBL LT / PROCEDURE REASON: Injury of left ankle, initial encounter * * * * Physician Interpretation * * * * HISTORY: Injury of left ankle, initial encounter pt states rolled his left ankle last night, pain lateral side Pain in left malleous, into proximal 4, 5 metatarsals TECHNIQUE: 3 upright views COMPARISON: None RESULT: No acute bony or joint findings. Lateral talar calcaneal spurring is noted. Small bony ossicle lateral to the calcaneus appears well-corticated. IMPRESSION IMPRESSION: No fracture or dislocation Supervisor Metalizing: REKHA Transcribe Date/Time: May 18 2020 11:17A Dictated by : IVANNA MONTES DE OCA MD This examination was interpreted and the report reviewed and electronically signed by: IVANNA MONTES DE OCA MD on May 18 2020 11:19AM EST [facility] XR Ankle - left AP and Later al and obliqueOrdered By: [facility] Provider on 05-18-2020 [facility] XR Foot - left AP and Latera l and obliqueon 05-18-2020 IMPRESSION: No acute radiographic abnormalities seen in the left foot. Supervisor Metalizing: REKHA Transcribe Date/Time: May 18 2020 12:25P Dictated by : EDITH ECKERT MD This examination was interpreted and the report reviewed and electronically signed by: EDITH ECKERT MD on May 18 2020 12:31PM [facility] DIVISION OF RADIOLOGY * * *Final Report* * * DATE OF EXAM: May 18 2020 11:58AM WOX 5336 - XR FOOT 3V AP/LAT/OBL LT / PROCEDURE REASON: multiple diagnoses * * * * Physician Interpretation * * * * EXAM TITLE: XR FOOT 3V AP/LAT/OBL LT EXAM DATE/TIME: 05/18/2020 11:58 AM COMPARISON: None CLINICAL INDICATION/HISTORY: Injury. TECHNIQUE: AP, lateral and oblique views of the left foot are presented. FINDINGS: No acute fractures or subluxations are noted. The joint spaces are preserved. There appears to be pes cavus. Borderline bunion deformity deformity also visualized. Talocalcaneal bony spurs noted. The mineralization of the bones is normal. There is no significant soft tissue swelling. DIVISION OF RADIOLOGY Provider, [facility] [facility] - 05/18/2020 * * *Final Report* * * DATE OF EXAM: May 18 2020 11:58AM WOX [id number] - XR FOOT 3V AP/LAT/OBL LT / PROCEDURE REASON: multiple diagnoses * * * * Physician Interpretation * * * * EXAM TITLE: XR FOOT 3V AP/LAT/OBL LT EXAM DATE/TIME: 05/18/2020 11:58 AM COMPARISON: None CLINICAL INDICATION/HISTORY: Injury. TECHNIQUE: AP, lateral and oblique views of the left foot are presented. FINDINGS: No acute fractures or subluxations are noted. The joint spaces are preserved. There appears to be pes cavus. Borderline bunion deformity deformity also visualized. Talocalcaneal bony spurs noted. The mineralization of the bones is normal. There is no significant soft tissue swelling. IMPRESSION IMPRESSION: No acute radiographic abnormalities seen in the left foot. Supervisor Metalizing: PSCB Transcribe Date/Time: May 18 2020 12:25P Dictated by : EDITH ECKERT MD This examination was interpreted and the report reviewed and electronically signed by: EDITH ECKERT MD on May 18 2020 12:31PM [facility] XR CHEST 2 VIEWSon 8 XR CHEST 2 VIEWS ORIGINALClinical history: Fever. Cough. COMPARISON: None. PA and lateral radiographs of the chest were obtained. The heart is normal in size and configuration. The mediastinum and hilar structures are normal. The lungs are clear, and the vascularity is normal. The pleural surfaces, diaphragms, and bony structures are unremarkable. IMPRESSION: Normal chest. Interpreted By: Selvin Warren MDPreliminary Report By: Selvin Warren MDElectronically Signed By: Selvin Warren MD Dictated Date: 05/14/2018 1:31:26 AM Prelim Date: 05/14/2018 1:31:26 AM Sign Date: 05/14/2018 1:31:58 AM Normal [facility] ([place]) XR TIBIA/FIBULA 2 VIEWS LEFT on 05-14-2018 XR TIBIA/FIBULA 2 VIEWS LEFT ORIGINALXR TIBIA/FIBULA 2 VIEWS LEFT CLINICAL STATEMENT: injury. COMPARISON: None FINDINGS: No acute fracture or dislocation is identified. There is no radiopaque foreign body. IMPRESSION: No acute fracture or dislocation. Interpreted By: Selvin Warrenreliminary Report By: Selvin Warren MDElectronically Signed By: Selvin Warren MD Dictated Date: 05/14/2018 1:31:11 AM Prelim Date: 05/14/2018 1:31:11 AM Sign Date: 05/14/2018 1:31:16 AM Normal [facility] ([place]) Vital Signs Date Time Vital Sign Value Performing Clinician Facility 09-07-2024 14:42-0400 Diastolic blood pressure 82 mm[Hg] Kaylee Carlton DIGITAL STRATEGIST.POLYSOMNOGRAPHY TECHNICIAN Work Phone: [facility] 09-07-2024 14:42-0400 Systolic blood pressure 130 mm[Hg] Kaylee Carlton DIGITAL STRATEGIST.POLYSOMNOGRAPHY TECHNICIAN Work Phone: [facility] 09-07-2024 14:41-0400 Body mass index (BMI) [Ratio] 31.67 kg/m2 Kaylee Carlton DIGITAL STRATEGIST.POLYSOMNOGRAPHY TECHNICIAN Work Phone: [facility] 09-07-2024 14:41-0400 Body weight 118 kg Kaylee Carlton DIGITAL STRATEGIST.POLYSOMNOGRAPHY TECHNICIAN Work Phone: [facility] 09-07-2024 14:41-0400 Heart rate 98 /min Kaylee Carlton DIGITAL STRATEGIST.POLYSOMNOGRAPHY TECHNICIAN Work Phone: [facility] 09-07-2024 14:41-0400 SaO2% (BldA) [Mass fraction] 97 % Kaylee Carlton DIGITAL STRATEGIST.POLYSOMNOGRAPHY TECHNICIAN Work Phone: [facility] 09-01-2024 14:04-0400 Diastolic blood pressure 88 mm[Hg] Kaylee Carlton DIGITAL STRATEGIST.POLYSOMNOGRAPHY TECHNICIAN Work Phone: [facility] 09-01-2024 14:04-0400 Systolic blood pressure 122 mm[Hg] Kaylee Carlton DIGITAL STRATEGIST.POLYSOMNOGRAPHY TECHNICIAN Work Phone: [facility] 09-01-2024 14:01-0400 Body mass index (BMI) [Ratio] 31.42 kg/m2 Kaylee Carlton DIGITAL STRATEGIST.POLYSOMNOGRAPHY TECHNICIAN Work Phone: [facility] 09-01-2024 14:01-0400 Body weight 117.1 kg Kyalee Thorper DIGITAL STRATEGIST.POLYSOMNOGRAPHY TECHNICIAN Work Phone: [facility] 09-01-2024 14:01-0400 Heart rate 104 /min Kaylee Thorper DIGITAL STRATEGIST.POLYSOMNOGRAPHY TECHNICIAN Work Phone: [facility] 09-01-2024 14:01-0400 SaO2% (BldA) [Mass fraction] 98 % Kaylee Thorper DIGITAL STRATEGIST.POLYSOMNOGRAPHY TECHNICIAN Work Phone: [facility] 08-24-2024 16:08-0500 Body mass index (BMI) [Ratio] 32.95 kg/m2 nIdu Tapia MD Work Phone: [facility] 08-24-2024 16:08-0500 Body temperature 96.91 [degF] Indu Tapia MD Work Phone: [facility] 08-24-2024 16:08-0500 Body weight 122.8 kg Indu Tapia MD Work Phone: [facility] 08-24-2024 16:08-0500 Diastolic blood pressure 88 mm[Hg] Indu Tapia MD Work Phone: [facility] 08-24-2024 16:08-0500 Heart rate 106 /min Indu Tapia MD Work Phone: [facility] 08-24-2024 16:08-0500 Respiratory rate 18 /min Indu Tapia MD Work Phone: [facility] 08-24-2024 16:08-0500 SaO2% (BldA) [Mass fraction] 98 % Indu Tapia MD Work Phone: [facility] 08-24-2024 16:08-0500 Systolic blood pressure 144 mm[Hg] Indu Tapia MD Work Phone: [facility] 07-28-2024 04:06-0500 Body temperature 97.8 [degF] MD Ronal Duong MD Work Phone: [facility] Work Phone: 07-28-2024 04:06-0500 Diastolic blood pressure 78 mm[Hg] MD Ronal Duong MD Work Phone: [facility] Work Phone: 07-28-2024 04:06-0500 Heart rate 74 /min MD Ronal Duong MD Work Phone: [facility] Work Phone: 07-28-2024 04:06-0500 Respiratory rate 20 /min MD Ronal Duong MD Work Phone: [facility] Work Phone: 07-28-2024 04:06-0500 SaO2% (BldA) [Mass fraction] 94 % MD Ronal Duong MD Work Phone: [facility] Work Phone: 07-28-2024 04:06-0500 Systolic blood pressure 128 mm[Hg] MD Ronal Duong MD Work Phone: [facility] Work Phone: 07-28-2024 00:40-0500 Body height 193.04 cm MD Ronal Duong MD Work Phone: [facility] Work Phone: 07-28-2024 00:40-0500 Body mass index (BMI) [Ratio] 32.8 kg/m2 MD Ronal Duong MD Work Phone: [facility] Work Phone: 07-28-2024 00:40-0500 Body weight 122.46 kg MD Ronal Duong MD Work Phone: [facility] Work Phone: 12-11-2023 12:58-0400 Body height 193 cm Magaly Burgos MD Work Phone: [facility] 12-11-2023 12:58-0400 Body mass index (BMI) [Ratio] 33.55 kg/m2 Magaly Burgos MD Work Phone: [facility] 12-11-2023 12:58-0400 Body temperature 96.91 [degF] Magaly Burgos MD Work Phone: [facility] 12-11-2023 12:58-0400 Body weight 125.01 kg Magaly Burgos MD Work Phone: [facility] 12-11-2023 12:58-0400 Diastolic blood pressure 76 mm[Hg] Magaly Burgos MD Work Phone: [facility] 12-11-2023 12:58-0400 Heart rate 95 /min Magaly Burgos MD Work Phone: [facility] 12-11-2023 12:58-0400 SaO2% (BldA) [Mass fraction] 95 % Magaly Burgos MD Work Phone: [facility] 12-11-2023 12:58-0400 Systolic blood pressure 120 mm[Hg] Magaly Burgos MD Work Phone: [facility] 12-04-2023 15:00-0400 Body mass index (BMI) [Ratio] 33.72 kg/m2 Michelle Jane MD Work Phone: [facility] 12-04-2023 15:00-0400 Body temperature 96.91 [degF] Michelle Jane MD Work Phone: [facility] 12-04-2023 15:00-0400 Body weight 125.65 kg Michelle Jane MD Work Phone: [facility] 12-04-2023 15:00-0400 Diastolic blood pressure 70 mm[Hg] Michelle Jane MD Work Phone: [facility] 12-04-2023 15:00-0400 Heart rate 78 /min Michelle Jane MD Work Phone: [facility] 12-04-2023 15:00-0400 Respiratory rate 18 /min Michelle Jane MD Work Phone: [facility] 12-04-2023 15:00-0400 SaO2% (BldA) [Mass fraction] 98 % Michelle Jane MD Work Phone: [facility] 12-04-2023 15:00-0400 Systolic blood pressure 108 mm[Hg] Michelle Jane MD Work Phone: [facility] 11-11-2023 14:42-0400 Body mass index (BMI) [Ratio] 33.35 kg/m2 Kaylee Carlton DIGITAL STRATEGIST.POLYSOMNOGRAPHY TECHNICIAN Work Phone: [facility] 11-11-2023 14:42-0400 Body weight 124.29 kg Kaylee Carlton DIGITAL STRATEGIST.POLYSOMNOGRAPHY TECHNICIAN Work Phone: [facility] 11-11-2023 14:42-0400 Diastolic blood pressure 72 mm[Hg] Kaylee Carlton DIGITAL STRATEGIST.POLYSOMNOGRAPHY TECHNICIAN Work Phone: [facility] 11-11-2023 14:42-0400 Heart rate 80 /min Kaylee Carlton DIGITAL STRATEGIST.POLYSOMNOGRAPHY TECHNICIAN Work Phone: [facility] 11-11-2023 14:42-0400 SaO2% (BldA) [Mass fraction] 97 % Kaylee Carlton DIGITAL STRATEGIST.POLYSOMNOGRAPHY TECHNICIAN Work Phone: [facility] 11-11-2023 14:42-0400 Systolic blood pressure 104 mm[Hg] Kaylee Carlton DIGITAL STRATEGIST.POLYSOMNOGRAPHY TECHNICIAN Work Phone: [facility] 05-05-2023 21:08-0500 Body height 195.58 cm [facility] 05-05-2023 21:08-0500 Body mass index (BMI) [Ratio] 32.5 kg/m2 [facility] 05-05-2023 21:08-0500 Body temperature 98.5 [degF] [facility] 05-05-2023 21:08-0500 Body weight 124.73 kg [facility] 05-05-2023 21:08-0500 Diastolic blood pressure 90 mm[Hg] [facility] 05-05-2023 21:08-0500 Heart rate 92 /min [facility] 05-05-2023 21:08-0500 Respiratory rate 16 /min [facility] 05-05-2023 21:08-0500 SaO2% (BldA) [Mass fraction] 99 % [facility] 05-05-2023 21:08-0500 Systolic blood pressure 155 mm[Hg] [facility] 03-18-2023 14:49-0400 Body height 193 cm [facility] 03-18-2023 14:49-0400 Body weight 117.94 kg [facility] 03-12-2023 08:12-0400 Body height 193 cm Doug Gordon MD Work Phone: [facility] 03-12-2023 08:12-0400 Body weight 121.56 kg Doug Gordon MD Work Phone: [facility] 03-12-2023 08:12-0400 Diastolic blood pressure 84 mm[Hg] Doug Gordon MD Work Phone: [facility] 03-12-2023 08:12-0400 Heart rate 82 /min Doug Gordon MD Work Phone: [facility] 03-12-2023 08:12-0400 Systolic blood pressure 126 mm[Hg] Doug Gordon MD Work Phone: [facility] 02-12-2023 13:47-0400 Body weight 119.75 kg Britney Cervantes DIGITAL STRATEGIST.CHILD & ADOLESCENT PSYCHIATRIST Work Phone: [facility] 02-12-2023 13:47-0400 Diastolic blood pressure 92 mm[Hg] Britney Cervantes DIGITAL STRATEGIST.CHILD & ADOLESCENT PSYCHIATRIST Work Phone: [facility] 02-12-2023 13:47-0400 Heart rate 98 /min Britney Cervantes DIGITAL STRATEGIST.CHILD & ADOLESCENT PSYCHIATRIST Work Phone: [facility] 02-12-2023 13:47-0400 Respiratory rate 16 /min Britney Cervantes DIGITAL STRATEGIST.CHILD & ADOLESCENT PSYCHIATRIST Work Phone: [facility] 02-12-2023 13:47-0400 Systolic blood pressure 131 mm[Hg] Britney Cervantes APRN.CNS Work Phone: [facility] 01-30-2023 10:51-0400 Body height 193 cm Ilya Huang MD Work Phone: [facility] 01-30-2023 10:51-0400 Body weight 124 kg Ilya Huang MD Work Phone: [facility] 01-30-2023 10:51-0400 Diastolic blood pressure 103 mm[Hg] Ilya Huang MD Work Phone: [facility] 01-30-2023 10:51-0400 Heart rate 91 /min Ilya Huang MD Work Phone: [facility] 01-30-2023 10:51-0400 Systolic blood pressure 166 mm[Hg] Ilya Huang MD Work Phone: [facility] 12-14-2022 08:32-0400 Body height 193 cm Rosalio Couch MD Work Phone: [facility] 12-14-2022 08:32-0400 Body weight 122.02 kg Rosalio Couch MD Work Phone: [facility] 12-14-2022 08:32-0400 Diastolic blood pressure 93 mm[Hg] Rosalio Couch MD Work Phone: [facility] 12-14-2022 08:32-0400 Heart rate 98 /min Rosalio Couch MD Work Phone: [facility] 12-14-2022 08:32-0400 SaO2% (BldA) [Mass fraction] 99 % Rosalio Couch MD Work Phone: [facility] 12-14-2022 08:32-0400 Systolic blood pressure 134 mm[Hg] Rosalio Couch MD Work Phone: [facility] 12-05-2022 11:00-0400 Body temperature 97.5 [degF] Amanda Gómez PA-C Work Phone: [facility] 12-05-2022 11:00-0400 Body weight 123.11 kg Navy PA-C Work Phone: [facility] 12-05-2022 11:00-0400 Diastolic blood pressure 84 mm[Hg] Rico PA-C Work Phone: [facility] 12-05-2022 11:00-0400 Heart rate 98 /min Rico PA-C Work Phone: [facility] 12-05-2022 11:00-0400 SaO2% (BldA) [Mass fraction] 98 % [employer] PA-C Work Phone: [facility] 12-05-2022 11:00-0400 Systolic blood pressure 132 mm[Hg] Rico PA-C Work Phone: [facility] 11-23-2022 08:32-0400 Body height 193 cm Navy PA-C Work Phone: [facility] 11-23-2022 08:32-0400 Body temperature 97.59 [degF] Rico PA-C Work Phone: [facility] 11-23-2022 08:32-0400 Body weight 123.38 kg Rico PA-C Work Phone: [facility] 11-23-2022 08:32-0400 Diastolic blood pressure 84 mm[Hg] Navy PA-C Work Phone: [facility] 11-23-2022 08:32-0400 Heart rate 104 /min Navy PA-C Work Phone: [facility] 11-23-2022 08:32-0400 SaO2% (BldA) [Mass fraction] 96 % Rico PA-C Work Phone: [facility] 11-23-2022 08:32-0400 Systolic blood pressure 132 mm[Hg] Rico PA-C Work Phone: [facility] 11-06-2022 14:29-0400 Body temperature 97.11 [degF] Michelle Jane MD Work Phone: [facility] 11-06-2022 14:29-0400 Body weight 120.66 kg Michelle Jane MD Work Phone: [facility] 11-06-2022 14:29-0400 Diastolic blood pressure 62 mm[Hg] Michelle Jane MD Work Phone: [facility] 11-06-2022 14:29-0400 Heart rate 99 /min Michelle Jane MD Work Phone: [facility] 11-06-2022 14:29-0400 Respiratory rate 18 /min Michelle Jane MD Work Phone: [facility] 11-06-2022 14:29-0400 SaO2% (BldA) [Mass fraction] 96 % Michelle Jane MD Work Phone: [facility] 11-06-2022 14:29-0400 Systolic blood pressure 108 mm[Hg] Michelle Jane MD Work Phone: [facility] 08-14-2022 10:35-0500 Body weight 129.73 kg Britney Cervantes DIGITAL STRATEGIST.CHILD & ADOLESCENT PSYCHIATRIST Work Phone: [facility] 08-14-2022 10:35-0500 Diastolic blood pressure 84 mm[Hg] Britney Cervantes DIGITAL STRATEGIST.CHILD & ADOLESCENT PSYCHIATRIST Work Phone: [facility] 08-14-2022 10:35-0500 Heart rate 97 /min Britney Cervantes DIGITAL STRATEGIST.CHILD & ADOLESCENT PSYCHIATRIST Work Phone: [facility] 08-14-2022 10:35-0500 Respiratory rate 16 /min Britney Cervantes DIGITAL STRATEGIST.CHILD & ADOLESCENT PSYCHIATRIST Work Phone: [facility] 08-14-2022 10:35-0500 SaO2% (BldA) [Mass fraction] 100 % Britney Cervantes DIGITAL STRATEGIST.CHILD & ADOLESCENT PSYCHIATRIST Work Phone: [facility] 08-14-2022 10:35-0500 Systolic blood pressure 124 mm[Hg] Britney Cervantes DIGITAL STRATEGIST.CHILD & ADOLESCENT PSYCHIATRIST Work Phone: [facility] 04-25-2022 12:45-0400 Body weight 137.89 kg Hope Older DIGITAL STRATEGIST.POLYSOMNOGRAPHY TECHNICIAN Work Phone: [facility] 04-25-2022 12:45-0400 Diastolic blood pressure 85 mm[Hg] Hope Older DIGITAL STRATEGIST.POLYSOMNOGRAPHY TECHNICIAN Work Phone: [facility] 04-25-2022 12:45-0400 Heart rate 94 /min Hope Older DIGITAL STRATEGIST.POLYSOMNOGRAPHY TECHNICIAN Work Phone: [facility] 04-25-2022 12:45-0400 Respiratory rate 16 /min Hope Older DIGITAL STRATEGIST.POLYSOMNOGRAPHY TECHNICIAN Work Phone: [facility] 04-25-2022 12:45-0400 Systolic blood pressure 129 mm[Hg] Hope Older DIGITAL STRATEGIST.POLYSOMNOGRAPHY TECHNICIAN Work Phone: [facility] 02-06-2022 10:46-0400 Body weight 136.08 kg Britney Cervantes DIGITAL STRATEGIST.CHILD & ADOLESCENT PSYCHIATRIST Work Phone: [facility] 02-06-2022 10:46-0400 Diastolic blood pressure 92 mm[Hg] Britney Cervantes DIGITAL STRATEGIST.CHILD & ADOLESCENT PSYCHIATRIST Work Phone: [facility] 02-06-2022 10:46-0400 Heart rate 100 /min Britney Cervantes DIGITAL STRATEGIST.CHILD & ADOLESCENT PSYCHIATRIST Work Phone: [facility] 02-06-2022 10:46-0400 Respiratory rate 16 /min Britney Cervantes DIGITAL STRATEGIST.CHILD & ADOLESCENT PSYCHIATRIST Work Phone: [facility] 02-06-2022 10:46-0400 Systolic blood pressure 146 mm[Hg] Britney Cervantes DIGITAL STRATEGIST.CHILD & ADOLESCENT PSYCHIATRIST Work Phone: [facility] 12-12-2021 14:22-0400 Diastolic blood pressure 74 mm[Hg] [facility] Work Phone: 12-12-2021 14:22-0400 Heart rate 78 /min [facility] Work Phone: 12-12-2021 14:22-0400 Respiratory rate 16 /min [facility] Work Phone: 12-12-2021 14:22-0400 Systolic blood pressure 154 mm[Hg] [facility] Work Phone: 12-12-2021 10:48-0400 Body height 193.04 cm [facility] Work Phone: 12-12-2021 10:48-0400 Body mass index (BMI) [Ratio] 36.5 kg/m2 [facility] Work Phone: 12-12-2021 10:48-0400 Body temperature 97 [degF] [facility] Work Phone: 12-12-2021 10:48-0400 Body weight 136.07 kg [facility] Work Phone: 12-12-2021 10:48-0400 SaO2% (BldA) [Mass fraction] 97 % [facility] Work Phone: 09-27-2021 11:54-0400 Diastolic blood pressure 97 mm[Hg] Kalen Yu MD Work Phone: [facility] 09-27-2021 11:54-0400 Heart rate 83 /min Kalen Yu MD Work Phone: [facility] 09-27-2021 11:54-0400 Systolic blood pressure 141 mm[Hg] Kalen Yu MD Work Phone: [facility] 09-27-2021 08:10-0400 Body temperature 98.2 [degF] Kalen Yu MD Work Phone: [facility] 09-27-2021 08:10-0400 SaO2% (BldA) [Mass fraction] 98 % Kalen Yu MD Work Phone: [facility] 09-26-2021 16:17-0400 Respiratory rate 14 /min Kalen Yu MD Work Phone: [facility] 09-22-2021 14:00-0400 Diastolic blood pressure 71 mm[Hg] [facility] Work Phone: 09-22-2021 14:00-0400 Heart rate 69 /min [facility] Work Phone: 09-22-2021 14:00-0400 Respiratory rate 17 /min [facility] Work Phone: 09-22-2021 14:00-0400 SaO2% (BldA) [Mass fraction] 98 % [facility] Work Phone: 09-22-2021 14:00-0400 Systolic blood pressure 125 mm[Hg] [facility] Work Phone: 09-22-2021 05:07-0400 Body height 193 cm Kalen Yu MD Work Phone: [facility] 09-22-2021 05:07-0400 Body mass index (BMI) [Ratio] 32.74 kg/m2 Kalen Yu MD Work Phone: [facility] 09-22-2021 05:07-0400 Body weight 122 kg Kalen Yu MD Work Phone: [facility] 09-21-2021 22:08-0400 Body temperature 98.1 [degF] [facility] Work Phone: 09-20-2021 16:30-0400 Body height 193.04 cm [facility] Work Phone: 09-20-2021 16:30-0400 Body mass index (BMI) [Ratio] 32.8 kg/m2 [facility] Work Phone: 09-20-2021 16:30-0400 Body weight 122.46 kg [facility] Work Phone: 09-15-2021 09:55-0400 Body height 193 cm Edwin Arauz PA-C Work Phone: [facility] 09-15-2021 09:55-0400 Body temperature 98.29 [degF] Edwin Arauz PA-C Work Phone: [facility] 09-15-2021 09:55-0400 Body weight 130.64 kg Edwin Arauz PA-C Work Phone: [facility] 09-15-2021 09:55-0400 Diastolic blood pressure 98 mm[Hg] Edwin Arauz PA-C Work Phone: [facility] 09-15-2021 09:55-0400 Heart rate 92 /min Edwin Arauz PA-C Work Phone: [facility] 09-15-2021 09:55-0400 Respiratory rate 18 /min Edwin Arauz PA-C Work Phone: [facility] 09-15-2021 09:55-0400 SaO2% (BldA) [Mass fraction] 96 % Edwin Arauz PA-C Work Phone: [facility] 09-15-2021 09:55-0400 Systolic blood pressure 142 mm[Hg] Edwin Arauz PA-C Work Phone: [facility] Encounters Encounter Date Encounter Type Care Provider Facility Start: 03-15-2025 End: 03-15-2025 ambulatory MICHELLE Samia JANE Facility:[facility] Start: 02-24-2025 End: 02-24-2025 Telephone encounter Kye Meade [facility] Work Phone: [facility] Comment on above: Appointment Start: 02-03-2025 End: 02-03-2025 Telephone encounter Kye Meade [facility] Work Phone: [facility] Comment on above: Missed Appointment ( Primary care reschedule) Start: 01-06-2025 End: 01-06-2025 ambulatory MICHELLE D TALAMPAS Facility:[facility] Start: 01-06-2025 End: 01-06-2025 Patient encounter procedure Kye Meade [facility] Work Phone: [facility] Comment on above: Uncontrolled type 2 diabetes mellitus with hyperglycemia (HCC) (Primary Dx) Start: 01-06-2025 End: 01-06-2025 Telemedicine consultation with patient Kye Meade [facility] Work Phone: [facility] Start: 12-09-2024 End: 12-09-2024 ambulatory MICHELLE D TALAMPAS Facility:[facility] Start: 12-09-2024 End: 12-09-2024 Patient encounter procedure Kye Meade [facility] Work Phone: [facility] Comment on above: Uncontrolled type 2 diabetes mellitus with hyperglycemia (HCC) (Primary Dx) Start: 12-09-2024 End: 12-09-2024 Telemedicine consultation with patient Kye Meade [facility] Work Phone: [facility] Start: 10-28-2024 End: 10-28-2024 Patient encounter procedure Kye Meade [facility] Work Phone: [facility] Comment on above: Uncontrolled type 2 diabetes mellitus with hyperglycemia (HCC) (Primary Dx) Start: 10-28-2024 End: 10-28-2024 Telemedicine consultation with patient Kye Meade [facility] Work Phone: [facility] Start: 10-28-2024 End: 10-28-2024 ambulatory MICHELLE D TALAMPAS Facility:[facility] Start: 09-23-2024 End: 09-23-2024 Telephone encounter Corinne Lemos [facility] Work Phone: Psychology Comment on above: bh consult Start: 09-17-2024 End: 09-17-2024 Telephone encounter Iain Nguyễn MD Work Phone: Pain Management Comment on above: Appointment Start: 09-16-2024 End: 09-16-2024 ambulatory MICHELLE D TALAMPAS Facility:[facility] Start: 09-16-2024 End: 09-16-2024 Patient encounter procedure Kye Meade [facility] Work Phone: [facility] Comment on above: Uncontrolled type 2 diabetes mellitus with hyperglycemia (HCC) (Primary Dx) Start: 09-16-2024 End: 09-16-2024 Telemedicine consultation with patient Kye Meade [facility] Work Phone: [facility] Start: 09-14-2024 End: 09-14-2024 Telephone encounter Kye Meade [facility] Work Phone: [facility] Comment on above: Patient Question (Me altime insulin) Start: 09-11-2024 End: 09-14-2024 Refill Michelle Jane MD Work Phone: [facility] [place] Comment on above: Refill Request Start: 09-07-2024 End: 09-07-2024 [facility] Start: 09-07-2024 End: 09-07-2024 Patient encounter procedure Kye Meade [facility] Work Phone: [facility] Comment on above: Uncontrolled type 2 diabetes mellitus with hyperglycemia (HCC) (Primary Dx); Medication management Bipolar disorder, cu rrent episode mixed, moderate (HCC) (Primary Dx); Uncontrolled type 2 diabetes mellitus with hyperglycemia (HCC); Primary insomnia; Essential hypertension; Bile acid esophageal reflux; Housing instability, housed, homelessness in past 12 months Start: 09-07-2024 End: 09-07-2024 Telemedicine consultation with patient Kye Meade [facility] Work Phone: Pharm [facility] Start: 09-04-2024 End: 09-07-2024 Telephone encounter Kaylee Vincent APRN.CNP Work Phone: Internal Medicine [place] Start: 09-03-2024 End: 09-03-2024 Telephone encounter Corinne Lemos [facility] Work Phone: Psychology Comment on above: consult Start: 09-01-2024 End: 09-01-2024 ambulatory KAYLEE VINCENT Facility:[facility] Start: 09-01-2024 End: 09-01-2024 Patient encounter procedure Kaylee Vincent APRN.POLYSOMNOGRAPHY TECHNICIAN Work Phone: Internal Medicine [place] Comment on above: Bipolar disorder, cu rrent episode mixed, moderate (HCC) (Primary Dx); Uncontrolled type 2 diabetes mellitus with hyperglycemia (HCC) Start: 08-24-2024 End: 08-24-2024 Emergency department patient visit Michelle Jane Facility:[facility] Start: 08-24-2024 End: 08-24-2024 Office outpatient visit 15 minutes Indu Tapia MD Work Phone: [facility] Comment on above: Uncontrolled type 2 diabetes mellitus with hyperglycemia (HCC) (Primary Dx); Dizziness; Agitation; Noncompliance with medication regimen Start: 08-24-2024 End: 08-24-2024 [facility] Start: 08-12-2024 End: 09-01-2024 Refill Michelle Jane MD Work Phone: [facility] [place] Comment on above: Refill Request Start: 07-28-2024 End: 07-28-2024 Emergency department patient visit MD Ronal Duong [facility] Start: 07-14-2024 End: 07-15-2024 Refill Michelle Jane MD Work Phone: Internal Medicine [place] Comment on above: Refill Request Start: 05-08-2024 End: 05-08-2024 Emergency department patient visit Michelle Jane Facility:[facility] Start: 04-21-2024 End: 04-21-2024 Refill Michelle Jane MD Work Phone: [facility] [place] Comment on above: Refill Request Start: 04-14-2024 End: 04-14-2024 ambulatory IAIN NGUYỄN Facility:[facility] Start: 04-08-2024 End: 04-08-2024 Refill Michelle Jane MD Work Phone: [facility] [place] Comment on above: Refill Request Start: 03-29-2024 End: 03-30-2024 Refill Kaylee Vincent APRN.CNP Work Phone: Internal [facility] [place] Comment on above: Refill Request Start: 03-28-2024 End: 03-30-2024 Refill Michelle Jane MD Work Phone: [facility] [place] Comment on above: Refill Request Start: 03-13-2024 End: 03-13-2024 ambulatory Iain Nguyễn MD Work Phone: Pain Management Comment on above: Procedure Instructio ns Chronic bilateral lo w back pain without sciatica (Primary Dx) Start: 03-13-2024 End: 03-13-2024 E-mail encounter from caregiver Iain Nguyễn MD Work Phone: Pain Management Start: 03-13-2024 End: 03-13-2024 Telephone encounter Iain Nguyễn MD Work Phone: Pain Management Comment on above: Results Start: 03-05-2024 End: 03-05-2024 ambulatory Iain Nguyễn MD Work Phone: Pain Management Comment on above: Results and Recommen dations Start: 03-05-2024 End: 03-05-2024 E-mail encounter from caregiver Iain Nguyễn MD Work Phone: Pain Management Start: 03-05-2024 End: 03-10-2024 Telephone encounter Nora Dodson [facility] Work Phone: Pharm [facility] Comment on above: Missed Appointment ( Pharmacist Visit Rescheduling) Start: 03-03-2024 End: 03-03-2024 ambulatory Iain Nguyễn MD Work Phone: Pain Management Comment on above: Results and Recommen dations Start: 03-03-2024 End: 03-03-2024 E-mail encounter from caregiver aIin Nguyễn MD Work Phone: Pain Management Start: 03-03-2024 End: 03-03-2024 Telephone encounter Iain Nguyễn MD Work Phone: Pain Management Comment on above: Results (Lumbar MRI) Start: 02-27-2024 ambulatory IAIN NGUYỄN Facility:[facility] Start: 02-27-2024 End: 02-27-2024 Subsequent hospital visit by physician [facility] (1.5t) [facility] Comment on above: Chronic bilateral lo w back pain without sciatica [M54.50, G89.29] Start: 02-12-2024 End: 02-12-2024 Patient encounter procedure Iain Nguyễn MD Work Phone: Pain Management Comment on above: Chronic bilateral lo w back pain without sciatica (Primary Dx) Start: 02-11-2024 End: 02-11-2024 ambulatory Federico Zapata PT [facility] Comment on above: Cervical spine pain (Primary Dx); Thoracolumbar back pain; DDD (degenerative disc disease), thoracolumbar Start: 02-05-2024 E-mail encounter ronen cox caregiver [facility] Start: 02-05-2024 Patient encounter procedure [facility] Comment on above: Instructions for you r upcoming appointment Start: 01-28-2024 End: 01-28-2024 ambulatory Federico Zapata PT [facility] Comment on above: Cervical spine pain (Primary Dx); Thoracolumbar back pain; DDD (degenerative disc disease), thoracolumbar Start: 01-23-2024 Telephone encounter Nora Dodson [facility] Work Phone: [facility] Comment on above: Missed Appointment Start: 01-20-2024 E-mail encounter ronen cox caregiver [facility] Management Start: 01-20-2024 Patient encounter procedure [facility] Comment on above: Instructions for you r upcoming appointment Start: 01-07-2024 End: 01-07-2024 ambulatory Federico Zapata [facility] Therapy Comment on above: Cervical spine pain (Primary Dx); Thoracolumbar back pain; DDD (degenerative disc disease), thoracolumbar Start: 12-25-2023 Telephone encounter Michelle hancock MD Work Phone: Internal Medicine [place] Comment on above: Opened In Error Start: 12-21-2023 Refill Michelle campbell MD Work Phone: Internal [facility] [place] Comment on above: Refill Request Start: 12-16-2023 End: 03-19-2024 Telephone encounter Michelle Jane MD Work Phone: Internal [facility] [place] Comment on above: Appointment (Pharmac ist) Start: 12-11-2023 Telephone encounter Omkar felix DO Work Phone: [facility] Comment on above: Appointment Start: 12-11-2023 End: 12-11-2023 Subsequent hospital visit by physician Xr [facility] Work Phone: Radiology Comment on above: Canceled (CC cx: Jose Luis russo) Start: 12-11-2023 End: 12-11-2023 Patient encounter procedure Magaly Burgos MD Work Phone: General Surgery Comment on above: Lump of skin of back Start: 12-04-2023 End: 12-04-2023 Office outpatient visit 25 minutes Michelle Jane MD Work Phone: Internal Medicine [place] Comment on above: Uncontrolled type 2 diabetes mellitus with hyperglycemia (HCC) (Primary Dx); Cervical spine pain; Thoracolumbar back pain; DDD (degenerative disc disease), thoracolumbar; Essential hypertension; Mixed hyperlipidemia; Vitamin D deficiency; Lump of skin of back Start: 12-04-2023 ambulatory [facility] Comment on above: [facility] Start: 12-04-2023 E-mail encounter ronen cox caregiver [facility] Neurology Start: 11-28-2023 End: 11-28-2023 Emergency department patient visit Michelle Jane Facility:[facility] Start: 11-11-2023 End: 11-11-2023 Patient encounter procedure Kaylee Vincent APRN.CNP Work Phone: Internal Medicine [place] Comment on above: Erectile dysfunction due to diseases classified elsewhere (Primary Dx); Uncontrolled type 2 diabetes mellitus with hyperglycemia (HCC); Chronic bilateral low back pain with left-sided sciatica; Chronic intractable headache, unspecified headache type Start: 11-09-2023 Refill Michelle campbell MD Work Phone: Internal Medicine [place] Comment on above: Refill Request Start: 10-21-2023 Telephone encounter Michelle hancock MD Work Phone: Family Medicine [place] Comment on above: Insurance Authorizat ion (Ozempic) Start: 10-04-2023 Refill Michelle campbell MD Work Phone: [facility] [place] Start: 08-22-2023 End: 08-22-2023 Patient encounter procedure Ilya Figueroa MD Work Phone: Otolaryngology Comment on above: Sensorineural hearin g loss (SNHL) of both ears (Primary Dx) Sensorineural hearin g loss (SNHL) of both ears Start: 08-09-2023 Refill Michelle campbell MD Work Phone: Internal [facility] [place] Comment on above: Refill Request Start: 05-05-2023 End: 05-06-2023 Emergency department patient visit [facility] Work Phone: Start: 03-29-2023 Telephone encounter Deisy champagne PA-C Work Phone: [facility] [place] Comment on above: Appointment Start: 03-21-2023 Telephone encounter Nora Dodson [facility] Work Phone: Pharm Med Clinic Comment on above: Missed Appointment ( Pharmacist Visit Reschedule) Start: 03-19-2023 ambulatory Ilya wiseman MD Work Phone: General Surgery Comment on above: POP procedure with Samia Huang Start: 03-19-2023 E-mail encounter fro m caregiver Ilya Huang MD Work Phone: [facility] Start: 03-18-2023 End: 03-18-2023 Admission to establishment [facility] Start: 03-18-2023 End: 03-18-2023 ambulatory Pacc Virtual Pre Anesthesia Start: 03-12-2023 ambulatory Ilya wiseman MD Work Phone: General Surgery Comment on above: Upcoming procedure w jessie Huang Start: 03-12-2023 E-mail encounter fro m caregiver Ilya Huang MD Work Phone: [facility] Start: 03-12-2023 Telephone encounter Ilya Segovia MD Work Phone: Pre Anesthesia Comment on above: Patient Question Start: 03-12-2023 End: 03-12-2023 Patient encounter procedure Doug Gordon MD Work Phone: Cardiology Comment on above: Precordial pain (Mandy jennifer Dx); Anxiety and depression; Bipolar affective disorder, currently manic, mild (HCC); PTSD (post-traumatic stress disorder); Substance abuse (HCC); Obesity (BMI 30.0-34.9); Essential hypertension; Mixed hyperlipidemia; BERYL (obstructive sleep apnea); Tobacco use; Encounter for screening for cardiovascular disorders Start: 02-27-2023 Telephone encounter Aylin Palacios APRN.POLYSOMNOGRAPHY TECHNICIAN Work Phone: Pre Anesthesia Comment on above: Appointment (No show ) Start: 02-22-2023 Telephone encounter Ilya Segovia MD Work Phone: Pre Anesthesia Comment on above: Preparations For Won tin Start: 02-15-2023 ambulatory Deisy Richards ms, PA-C Work Phone: [facility] [place] Comment on above: 03/21/2023 Deisy wick Annyhedlucina Start: 02-15-2023 E-mail encounter fro m caregiver Deisy Holly PA-C Work Phone: [facility] Start: 02-12-2023 End: 02-12-2023 Office outpatient visit 25 minutes Britney Cervantes APRN.MILLIE Work Phone: Internal Medicine [place] Comment on above: Lumbar back pain (Pr imary Dx); Kidney stones; Bipolar affective disorder, current episode mixed, current episode severity unspecified (HCC); Primary insomnia; Uncontrolled type 2 diabetes mellitus with hyperglycemia (HCC); Encounter for immunization Start: 02-10-2023 Refill Kaylee Carlton DIGITAL STRATEGIST.POLYSOMNOGRAPHY TECHNICIAN Work Phone: Internal Medicine [place] Comment on above: Refill Request Start: 02-01-2023 Refill Kaylee Carlton DIGITAL STRATEGIST.POLYSOMNOGRAPHY TECHNICIAN Work Phone: Pharm [facility] Comment on above: Refill Request Start: 01-30-2023 End: 01-30-2023 Patient encounter procedure Ilya Huang MD Work Phone: General Surgery Comment on above: Gastroparesis due to secondary diabetes (HCC) Gastroparesis due to secondary diabetes (HCC) (Primary Dx); Early satiety Start: 01-17-2023 Refill Kaylee Carlton DIGITAL STRATEGIST.POLYSOMNOGRAPHY TECHNICIAN Work Phone: Internal Medicine [place] Comment on above: Refill Request Start: 01-17-2023 End: 01-17-2023 Subsequent hospital visit by physician [facility] Qb1 (I-Stat) Radiology Comment on above: Esophageal dysphagia [R13.19] Start: 01-17-2023 End: 01-17-2023 Nursing evaluation of patient and report Nurse Gi Lab 2 Work Phone: Gastroenterology Comment on above: Esophageal dysphagia Start: 01-03-2023 Telephone encounter Michelle hancock MD Work Phone: Pharm [employer] Comment on above: Medication Question Start: 01-03-2023 End: 01-03-2023 Subsequent hospital visit by physician [facility] Comment on above: Nausea [R11.0] Start: 12-20-2022 Refill Michelle campbell MD Work Phone: Internal [facility] [place] Comment on above: Refill Request Start: 12-14-2022 End: 12-14-2022 Patient encounter procedure Rosalio Couch MD Work Phone: Gastroenterology Comment on above: Nausea (Primary Dx); Nausea and vomiting, unspecified vomiting type; Belching; Esophageal dysphagia Start: 12-05-2022 End: 12-05-2022 Patient encounter procedure Amanda Gómez PA-C Work Phone: General Surgery Comment on above: Nausea and vomiting, unspecified vomiting type (Primary Dx); Belching; Esophageal dysphagia; Early satiety; S/P cholecystectomy Start: 11-26-2022 ambulatory Kye Meade [facility] Work Phone: [facility] Comment on above: Pharmacy Patient Ass istance Program (Ozempic/Novolog/Tresiba) Start: 11-23-2022 ambulatory Kye Meade [facility] Work Phone: Pharm Med Clinic Comment on above: Medication Assistanc e Start: 11-23-2022 E-mail encounter ronen m caregiver Kye Meade [facility] Work Phone: [facility] Start: 11-23-2022 End: 11-23-2022 Patient encounter procedure Navy PA-C Work Phone: General Surgery Comment on above: Nausea and vomiting, unspecified vomiting type (Primary Dx); Change in bowel habits; Abdominal bloating; Early satiety; History of cocaine use; History of Helicobacter pylori infection; Belching Start: 11-21-2022 End: 11-21-2022 ambulatory Kye [facility] Work Phone: Pharm Med Clinic Comment on above: Uncontrolled type 2 diabetes mellitus with hyperglycemia (HCC) (Primary Dx); Medication management Start: 11-21-2022 End: 11-21-2022 Telemedicine consultation with patient Kye Meade [facility] Work Phone: [facility] Start: 11-15-2022 Telephone encounter Michelle hancock MD Work Phone: Internal [facility] [place] Comment on above: Results Start: 11-13-2022 Telephone encounter Michelle hancock MD Work Phone: Family Medicine [place] Comment on above: urine problem/patien t update Start: 11-08-2022 Telephone encounter Keiry Bermudez liver OD Work Phone: Ophthalmology Comment on above: Patient Question Start: 11-06-2022 End: 11-06-2022 Office outpatient visit 25 minutes Michelle Jane MD Work Phone: Internal Medicine [place] Comment on above: Uncontrolled type 2 diabetes mellitus with hyperglycemia (HCC) (Primary Dx); Bile acid esophageal reflux; Bile salt-induced diarrhea; Bilious vomiting with nausea; Mixed hyperlipidemia; Essential hypertension; Obesity (BMI 30.0-34.9) Start: 10-02-2022 End: 10-02-2022 ambulatory Kye [facility] Work Phone: Pharm Med [facility] Comment on above: Uncontrolled type 2 diabetes mellitus with hyperglycemia (HCC) (Primary Dx); Essential hypertension Start: 10-02-2022 End: 10-02-2022 Telemedicine consultation with patient Kye Meade [facility] Work Phone: [facility] Start: 09-18-2022 Telephone encounter Cara Schlechty M SW Navigation Comment on above: Patient Question Start: 09-17-2022 Telephone encounter Cara DAVIS Navigation Comment on above: Patient Update Start: 09-14-2022 Chart abstracting [facility] Main Work Phone: Neurology Start: 09-14-2022 Telephone encounter Michelle hancock MD Work Phone: Internal [facility] [place] Comment on above: Medication Question Start: 09-12-2022 ambulatory Kye Meade RP Work Phone: [facility] Start: 09-06-2022 Telephone encounter Kye Turner o [facility] Work Phone: Pharm [facility] Comment on above: Missed Appointment Patient Update Start: 09-03-2022 Telephone encounter Michelle hancock MD Work Phone: Internal [facility] [place] Comment on above: Patient Question Nurse Triage Call Start: 08-28-2022 Refill Michelle campbell MD Work Phone: Internal Medicine [place] Comment on above: Refill Request Start: 08-23-2022 End: 08-23-2022 Patient encounter procedure Keiry Smiley OD Work Phone: Ophthalmology Comment on above: Type 2 diabetes tien itus without retinopathy (HCC) (Primary Dx); Myopia, bilateral; Regular astigmatism of both eyes; Presbyopia Start: 08-17-2022 Telephone encounter Britney hussein DIGITAL STRATEGIST.CHILD & ADOLESCENT PSYCHIATRIST Work Phone: Internal Medicine [place] Comment on above: Results Start: 08-14-2022 End: 08-14-2022 Office outpatient visit 25 minutes Britney Cervantes DIGITAL STRATEGIST.CHILD & ADOLESCENT PSYCHIATRIST Work Phone: Internal Medicine [place] Comment on above: Essential hypertensi on (Primary Dx); Mixed hyperlipidemia; BERYL (obstructive sleep apnea); Uncontrolled type 2 diabetes mellitus with hyperglycemia (HCC); Gastroesophageal reflux disease with esophagitis, unspecified whether hemorrhage; BMI 34.0-34.9,adult Start: 08-01-2022 End: 08-01-2022 ambulatory Bianca Begum [facility] Work Phone: Pharm Med [facility] Comment on above: Uncontrolled type 2 diabetes mellitus with hyperglycemia (HCC) (Primary Dx) Start: 08-01-2022 End: 08-01-2022 Telemedicine consultation with patient Bianca Begum carlos Work Phone: [facility] [place] Start: 07-26-2022 Telephone encounter Pharmacist [facility] Comment on above: Primary Care Pharmac y Start: 07-25-2022 Telephone encounter Michelle hancock MD Work Phone: Internal Medicine [place] Comment on above: Patient Update Start: 05-09-2022 End: 05-09-2022 Patient encounter procedure Ilya Guerrakameron Work Phone: Podiatry Comment on above: Uncontrolled type 2 diabetes mellitus with hyperglycemia (HCC) (Primary Dx); Callus of foot; Pes cavus Start: 05-03-2022 Chart abstracting [facility] Main Work Phone: Neurology Start: 04-25-2022 End: 04-25-2022 Patient encounter procedure Hope Ivory APRN.POLYSOMNOGRAPHY TECHNICIAN Work Phone: Internal Medicine [place] Comment on above: Essential hypertensi on (Primary Dx); Snoring; Uncontrolled type 2 diabetes mellitus with hyperglycemia (HCC); Primary insomnia; Excessive daytime sleepiness; Class 2 severe obesity with serious comorbidity and body mass index (BMI) of 37.0 to 37.9 in adult, unspecified obesity type (HCC); Anxiety and depression; Bipolar affective disorder, current episode mixed, current episode severity unspecified (HCC); PTSD (post-traumatic stress disorder) Start: 04-23-2022 Telephone encounter Michelle hancock MD Work Phone: Internal Medicine [place] Comment on above: Elevated BP Start: 04-04-2022 End: 04-04-2022 Emergency department patient visit [facility] Start: 02-06-2022 End: 02-06-2022 Patient encounter procedure Britney Cervantes DIGITAL STRATEGIST.CHILD & ADOLESCENT PSYCHIATRIST Work Phone: Internal Medicine [place] Comment on above: Screening for HIV (h uman immunodeficiency virus) (Primary Dx); Encounter for immunization; Bipolar affective disorder, current episode mixed, current episode severity unspecified (HCC); Uncontrolled type 2 diabetes mellitus with hyperglycemia (HCC); Essential hypertension; Abnormal movements Start: 12-23-2021 End: 12-24-2021 Emergency department patient visit DR GUMARO NICHOLAS [facility] Start: 12-12-2021 End: 12-12-2021 Emergency department patient visit [facility] Start: 12-07-2021 Telephone encounter Kye bermudez [facility] Work Phone: Pharm [facility] Comment on above: Appointment Start: 12-01-2021 Telephone encounter Michelle hancock MD Work Phone: Internal Medicine [place] Comment on above: Refill Request Start: 11-23-2021 E-mail encounter ronen cox caregiver Kye [facility] Work Phone: [facility] [place] Start: 11-23-2021 Patient encounter procedure Kye Meade [facility] Work Phone: Pharm [facility] Comment on above: Diabetes visit Start: 11-23-2021 Telephone encounter Kye bermudez [facility] Work Phone: Pharm [facility] Comment on above: Appointment Start: 11-15-2021 Telephone encounter Michelle hancock MD Work Phone: Internal Medicine [place] Comment on above: Rx clarification Start: 10-26-2021 End: 10-26-2021 Emergency department patient visit JONATHAN SALEEM 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 Start: 09-15-2021 Telephone encounter Caleb gonzalez MD Work Phone: [facility] Comment on above: Appointment Start: 09-15-2021 End: 09-15-2021 Patient encounter procedure Edwin Arauz PA-C Work Phone: Urology Comment on above: Right testicular iveth n Start: 05-18-2020 End: 05-18-2020 Subsequent hospital visit by physician Amaya [facility] [place] Work Phone: Radiology Comment on above: Injury of left ankle , initial encounter [C79.912A] Start: 05-14-2018 End: 05-14-2018 Emergency department patient visit DONNA DEGROOT Facility:B Procedures Date Procedure Procedure Detail Performing Clinician Start: 08-24-2024 Gluc bld gluc mntr dev cleared fda spec home use [facility] Provider Start: 07-28-2024 Plain chest X-ray MD Ronal Duong MD Work Phone: Start: 08-22-2023 HEARING TEST/AUDIOGRAM Betty Jasmine MELANI Work Phone: Start: 05-05-2023 End: 05-05-2023 Radiography of ankle Start: 05-05-2023 End: 05-05-2023 X-ray of both feet Start: 05-05-2023 Plain x-ray of pelvis and lower extremity Start: 01-17-2023 Radiologic exam esophagus single contrast study Rosalio Couch MD Work Phone: Start: 01-03-2023 Gastric emptying imaging study Rosalio Couch MD Work Phone: Start: 09-27-2021 Glucose measurement Geo cox MD Work Phone: Start: 09-27-2021 Glucose measurement Geo cox MD Work Phone: Start: 09-27-2021 Glucose measurement Kalen Yu MD Work Phone: Start: 09-26-2021 Glucose measurement Kalen Yu MD Work Phone: Start: 09-26-2021 Glucose measurement Kalen Yu MD Work Phone: Start: 09-26-2021 Glucose measurement Kalen Yu MD Work Phone: Start: 09-26-2021 Glucose measurement Kalen Yu MD Work Phone: Start: 09-26-2021 Glucose measurement Kalen Yu MD Work Phone: Start: 09-26-2021 Glucose measurement Kalen Yu MD Work Phone: Start: 09-25-2021 Glucose measurement Kalen Yu MD Work Phone: Start: 09-25-2021 Glucose measurement Kalen Yu MD Work Phone: Start: 09-25-2021 Glucose measurement Kalen Yu MD Work Phone: Start: 09-25-2021 Glucose measurement Kalen Yu MD Work Phone: Start: 09-25-2021 Glucose measurement Kalen Yu MD Work Phone: Start: 09-24-2021 Glucose measurement Kalen Yu MD Work Phone: Start: 09-24-2021 Glucose measurement Kalen Yu MD Work Phone: Start: 09-24-2021 Glucose measurement Kalen Yu MD Work Phone: Start: 09-24-2021 Glucose measurement Kalen Yu MD Work Phone: Start: 09-24-2021 End: 09-24-2021 Glucose measurement Kalen Yu MD Work Phone: Start: 09-23-2021 Glucose measurement Kalen Yu MD Work Phone: Start: 09-23-2021 Glucose measurement Kalen Yu MD Work Phone: Start: 09-23-2021 Glucose measurement Kalen Yu MD Work Phone: Start: 09-23-2021 Glucose measurement Kalen Yu MD Work Phone: Start: 09-22-2021 Glucose measurement Kalen Yu MD Work Phone: Start: 09-22-2021 Glucose measurement Kalen Yu MD Work Phone: Start: 09-22-2021 Glucose measurement Kalen Yu MD Work Phone: Start: 09-22-2021 End: 09-22-2021 Basic metabolic panel calcium total Farzaneh Eileen Melissa PA-C Work Phone: Start: 09-22-2021 Glucose measurement Kalen uY MD Work Phone: Start: 09-20-2021 End: 09-20-2021 Viral antigen assay Start: 09-15-2021 Urnls dip stick/tablet rgnt auto w/o microscopy Edwin Arauz PA-C Work Phone: Start: 05-18-2020 End: 05-18-2020 Radex ankle complete minimum 3 views Iliana Maxwell DIGITAL STRATEGIST.POLYSOMNOGRAPHY TECHNICIAN Work Phone: History of cholecystectomy S/P cholecyste ctomy Amanda Gómez PA-C Work Phone: Viral antigen assay Plan of Treatment Date Care Activity Detail Author Start: 12-02-2030 Urine microalbumin profile [facility] Start: 09-07-2025 Annual PCP Team Chronic Disease Visit Annual PCP Team Chronic Disease Visit [facility] Start: 09-07-2025 Covid-19 Vaccine ( season) Covid-19 Vaccine () [facility] Comment on above: Postponed from 02/23/2024 (Declined at t his time) Start: 09-01-2025 Annual PCP Team Chronic Disease Visit Annual PCP Team Chronic Disease Visit [facility] Start: 08-24-2025 Hepatitis B surface antibody level LDL Cholesterol [facility] Start: 03-15-2025 End: 03-15-2025 Patient encounter procedure 03/15/2025 2:30 PM EDT [facility] [address] [facility] [address] Kye Meade, Formerly [facility] [address] [place] [phone] DM f/up [facility] Comment on above: DM f/up Start: 02-24-2025 End: 05-26-2025 Comprehensive metabolic 2000 panel - Serum or Plasma COMPREHENSIVE METABOLIC PANEL Lab Routine Inadequately controlled diabetes mellitus (HCC) Expected: 02/24/2025, Expires: 05/26/2025 [facility] Comment on above: Expected: 02/24/2025, Expires: Start: 02-24-2025 End: 05-26-2025 Hemoglobin A1c in Blood HEMOGLOBIN A1C Lab Routine Inadequately controlled diabetes mellitus (HCC) Expected: 02/24/2025, Expires: 05/26/2025 [facility] Work Phone: Comment on above: Expected: 02/24/2025, Expires: Start: 02-24-2025 End: 05-26-2025 Lipid 1996 panel - Serum or Plasma LIPID PANEL, FASTING Lab Routine Inadequately controlled diabetes mellitus (HCC) Expected: 02/24/2025, Expires: 05/26/2025 [facility] Comment on above: Expected: 02/24/2025, Expires: Start: 02-24-2025 End: 05-26-2025 Microalbumin/Creatinine [Mass Ratio] in Urine ALBUMIN/CREATININE RATIO, URINE Lab Routine Inadequately controlled diabetes mellitus (HCC) Expected: 02/24/2025, Expires: 05/26/2025 [facility] Comment on above: Expected: 02/24/2025, Expires: Start: 02-22-2025 Influenza vaccination [facility] Start: 02-03-2025 End: 02-03-2025 Patient encounter procedure 02/03/2025 10:00 AM EDT [facility] [address] [place] [address] Kye Meade, Formerly [facility] [address] [place] [phone] DM f/up [facility] Comment on above: DM f/up Start: 01-06-2025 End: 01-06-2025 Patient encounter procedure 01/06/2025 11:00 AM EDT [facility] [address] [place], [place] [address] DeshaunKye vergara, [place] [address] [place] [phone] DM f/up [facility] Comment on above: DM f/up Start: 12-21-2024 Influenza [facility] Comment on above: Postponed from 02/23/2024 (Declined at t his time) Start: 12-10-2024 BP Controlled (<130/80) BP Controlled (<130/80) [facility] in Start: 12-09-2024 End: 12-09-2024 Patient encounter procedure 12/09/2024 1:30 PM EDT [facility] [address] [place], [place] [id number] Kye Meade, [place] [address] [place] [phone] DM-Pt. requested Kye [facility] Comment on above: DM-Pt. requested Kye Start: 12-03-2024 Annual PCP Team Chronic Disease Visit Annual PCP Team Chronic Disease Visit [facility] Start: 12-03-2024 BP Controlled (<130/80) BP Controlled (<130/80) [facility] in Start: 11-24-2024 End: 02-23-2025 Hemoglobin A1c in Blood HEMOGLOBIN A1C Lab Routine Uncontrolled type 2 diabetes mellitus with hyperglycemia (HCC) Expected: 11/24/2024, Expires: 02/23/2025 [facility] Work Phone: Comment on above: Expected: 11/24/2024, Expires: Start: 11-24-2024 Hemoglobin A[facility]c [facility]C [facility] Start: 11-10-2024 Annual PCP Team Chronic Disease Visit Annual PCP Team Chronic Disease Visit [facility] Start: 11-10-2024 BP Controlled (<130/80) BP Controlled (<130/80) [facility] inic Start: 10-28-2024 End: 01-27-2025 Microalbumin/Creatinine [Mass Ratio] in Urine ALBUMIN/CREATININE RATIO, URINE Lab Routine Uncontrolled type 2 diabetes mellitus with hyperglycemia (HCC) Expected: 10/28/2024, Expires: 01/27/2025 [facility] Comment on above: Expected: 10/28/2024, Expires: Start: 10-28-2024 End: 10-28-2024 Patient encounter procedure 10/28/2024 1:30 PM EDT [facility] [address] [place] [address] Kye Meade, Formerly [facility] [address] [place] [phone] DM-Pt. requested Formerly [facility] Comment on above: DM-Pt. requested Kye Start: 10-26-2024 End: 10-26-2024 Patient encounter procedure 10/26/2024 2:30 PM EDT Office Visit Pain Management [address] [phone] Iain Nguyễn MD [address] [id number] [place], [place] [phone] Wants to discuss other options since injections didnt work Pain Management Comment on above: Wants to discuss other options since inj ections didnt work Start: 10-17-2024 End: 01-16-2025 Basic metabolic 2000 panel - Serum or Plasma BASIC METABOLIC PANEL Lab Routine Uncontrolled type 2 diabetes mellitus with hyperglycemia (HCC) Expected: 10/17/2024, Expires: 01/16/2025 [facility] Work Phone: Comment on above: Expected: 10/17/2024, Expires: Start: 10-08-2024 End: 01-07-2025 Comprehensive metabolic 2000 panel - Serum or Plasma COMPREHENSIVE METABOLIC PANEL Lab Routine Uncontrolled type 2 diabetes mellitus with hyperglycemia (HCC) Expected: 10/08/2024, Expires: 01/07/2025 [facility] Work Phone: Comment on above: Expected: 10/08/2024, Expires: Start: 10-08-2024 End: 01-07-2025 Lipid 1996 panel - Serum or Plasma LIPID PANEL BASIC Lab Routine Uncontrolled type 2 diabetes mellitus with hyperglycemia (HCC) Expected: 10/08/2024, Expires: 01/07/2025 [facility] Comment on above: Expected: 10/08/2024, Expires: Start: 09-29-2024 End: 09-29-2024 Patient encounter procedure 09/29/2024 11:20 AM EDT Office Visit [facility] [place] [address] [place], [place] [phone] Kaylee Vincent APRN.POLYSOMNOGRAPHY TECHNICIAN [address] [place], [place] [phone] 3 week follow up [facility] [place] Comment on above: 3 week follow up Start: 09-28-2024 End: 09-28-2024 Patient encounter procedure 09/28/2024 11:00 AM EDT [facility] Pharm Med [facility] [address] [place], [place] [phone] Kye Meade, Formerly [facility] [address] [place] [phone] DM-Pt. requested [facility] Comment on above: DM-Pt. requested Kye Start: 09-16-2024 End: 09-16-2024 Patient encounter procedure 09/16/2024 1:30 PM EDT [facility] [address] [place], [place] [phone] Kye Meaed, Formerly [facility] [address] [place] [address] DM-Pt. requested [facility] Comment on above: DM-Pt. requested Kye Start: 09-07-2024 End: 09-07-2024 Patient encounter procedure [facility] Comment on above: follow up DM-Pt. requested Meena bev Start: 08-12-2024 End: 11-11-2024 Microalbumin/Creatinine [Mass Ratio] in Urine ALBUMIN/CREATININE RATIO, URINE Lab Routine Uncontrolled type 2 diabetes mellitus with hyperglycemia (HCC) Expected: 08/12/2024, Expires: 11/11/2024 [facility] Work Phone: Comment on above: Expected: 08/12/2024, Expires: Start: 07-28-2024 End: 07-28-2024 [facility] Work Phone: Start: 07-20-2024 End: 07-20-2024 Patient encounter procedure 07/20/2024 11:40 AM EST Office Visit Internal Medicine [place] [address] [place], [place] [phone] Britney Cervantes APRN.CHILD & ADOLESCENT PSYCHIATRIST [address] [place], [place] [address] 3 month follow up [facility] [place] Comment on above: 3 month follow up Start: 07-17-2024 Hepatitis B screening Urine Albumin:Creatinine Ratio [facility] Start: 07-17-2024 Hepatitis B surface antibody level LDL Cholesterol [facility] Start: 07-01-2024 End: 07-01-2024 Patient encounter procedure 07/01/2024 4:40 PM EST Office Visit [facility] [place] [address] [place], [place] [phone] Michelle Jane MD [address] [place] [address] 3 month follow up [facility] [place] Comment on above: 3 month follow up Start: 06-26-2024 Annual PCP Team Chronic Disease Visit Annual PCP Team Chronic Disease Visit [facility] Start: 04-14-2024 End: 04-14-2024 Admission to same day surgery center [facility] Comment on above: LUMBAR EPIDURAL BLOCK W/INJECTION NON NE UROLYTIC W/IMAGE GUIDANCE Start: 04-14-2024 End: 04-14-2024 Njx dx/ther sbst intrlmnr lmbr/sac w/img gdn [facility] OR Start: 04-14-2024 Subsequent hospital visit by physician [facility] Surgery Comment on above: Chronic bilateral low back pain without sciatica [M54.50, G89.29] Start: 03-05-2024 End: 03-05-2024 Patient encounter procedure 03/05/2024 1:30 PM EDT Office Visit [facility] [address] [place] [address] Nora Dodson, Formerly [facility] [address] [place] [address] rescheduled from 01/22 (no show) [facility] Comment on above: rescheduled from 01/22 (no show) Start: 02-27-2024 End: 02-27-2024 Patient encounter procedure 02/27/2024 12:45 PM EDT Appointment [facility] [address] [place] [id number] Chronic bilateral low back pain without sciatica [M54.50, G89.29] [facility] Comment on above: Chronic bilateral low back pain without sciatica [M54.50, G89.29] Start: 02-23-2024 Covid-19 Vaccine ( season) Covid-19 Vaccine ( season) [facility] Start: 02-23-2024 Covid-19 Vaccine ( season) Covid-19 Vaccine ( season) [facility] Start: 02-23-2024 Influenza vaccination [facility] Start: 02-12-2024 End: 02-12-2024 Patient encounter procedure 02/12/2024 2:30 PM EDT Office Visit Pain Management [address] [address] Iain Nguyễn MD [address] [facility] [id number] [place] [address] DDD (pt will bring cd w/xrays) Pain Management Comment on above: DDD (pt will bring cd w/xrays) Start: 02-11-2024 End: 02-11-2024 Patient encounter procedure 02/11/2024 5:15 PM EDT OT/PT/Speech Visit [facility] [address] [facility] [place] [address] Federico Zapata, PT Cervical spine pain [M54.2] Referral as discussed to help with pain issues [facility] Comment on above: Cervical spine pain [M54.2] Referral as discussed to help with pain issues Start: 02-11-2024 End: 02-11-2024 Patient encounter procedure 02/11/2024 2:20 PM EDT Office Visit Internal Medicine [place] [address] [facility] [place] [address] Kaylee Vincent APRN.[facility] [address] [place] [address] 3 month follow up [facility] [place] Comment on above: 3 month follow up Start: 02-04-2024 End: 02-04-2024 Patient encounter procedure 02/04/2024 5:15 PM EDT OT/PT/Speech Visit [facility] [address] [place] [address] Federico Zapata, PT Cervical spine pain [M54.2] Referral as discussed to help with pain issues [facility] Comment on above: Cervical spine pain [M54.2] Referral as discussed to help with pain issues Start: 01-28-2024 End: 01-28-2024 Patient encounter procedure 01/28/2024 5:15 PM EDT OT/PT/Speech Visit [facility] [address] [place] [address] Norman Zapatan, PT Cervical spine pain [M54.2] Referral as discussed to help with pain issues [facility] Comment on above: Cervical spine pain [M54.2] Referral as discussed to help with pain issues Start: 01-23-2024 End: 01-23-2024 Patient encounter procedure 01/23/2024 11:00 AM EDT Office Visit [facility] [address] [facility] [place] [place] [address] [facility] [address] [place] [address] DM management Pharm [facility] Comment on above: DM management Start: 01-22-2024 End: 01-22-2024 Patient encounter procedure 01/22/2024 2:00 PM EDT Office Visit Pain Management [address] [facility] [place] [address] Iain Nguyễn MD [address] [facility] [id number] [place] [address] DDD (pt will bring cd w/xrays) Pain Management Comment on above: DDD (pt will bring cd w/xrays) Start: 01-21-2024 End: 01-21-2024 Patient encounter procedure 01/21/2024 5:15 PM EDT OT/PT/Speech Visit [facility] [address] [place] [address] Federico Zapata, PT Cervical spine pain [M54.2] Referral as discussed to help with pain issues [facility] Comment on above: Cervical spine pain [M54.2] Referral as discussed to help with pain issues Start: 01-07-2024 End: 01-07-2024 ambulatory 01/07/2024 3:00 PM EDT OT/PT/Speech Visit [facility] [address] [place] [address] Federico Zapata, PT Cervical spine pain [M54.2]; Thoracolumbar back pain [M54.50, M54.6]; DDD (degenerative disc disease), thoracolumbar [M51.35] [facility] Comment on above: Cervical spine pain [M54.2]; Thoracolumb ar back pain [M54.50, M54.6]; DDD (degenerative disc disease), thoracolumbar [M51.35] Start: 12-24-2023 End: 12-24-2023 Patient encounter procedure 12/24/2023 7:30 AM EDT Office Visit [facility] General Orthopedics [address] [place] [phone] Omkar Moy P, DO [address] [phone] DDD ED [place] follow up, patient [facility] Comment on above: DDD ED [place] follow up, patient bringi ng disc with recent Xrays Start: 12-11-2023 Subsequent hospital visit by physician 12/11/2023 1:18 PM EDT Hospital Encounter Radiology [address] [place] [address] Low back pain, unspecified back pain laterality, unspecified chronicity, unspecified whether sciatica present [M54.50] Radiology Comment on above: Low back pain, unspecified back pain lat erality, unspecified chronicity, unspecified whether sciatica present [M54.50] Start: 12-11-2023 End: 12-11-2023 Patient encounter procedure 12/11/2023 1:15 PM EDT Office Visit General Surgery [address] [place] [address] Magaly Burgos MD [address] [place] [phone] Lump of skin of back [R22.2] General Surgery Comment on above: Lump of skin of back [R22.2] Start: 12-04-2023 End: 03-04-2024 25-hydroxyvitamin D3 [Mass/volume] in Serum or Plasma VITAMIN D 25 HYDROXY Lab Routine Vitamin D deficiency Expected: 12/04/2023, Expires: 03/04/2024 [facility] Comment on above: Expected: 12/04/2023, Expires: Start: 12-04-2023 End: 03-04-2024 Hemoglobin A1c in Blood HEMOGLOBIN A1C Lab Routine Uncontrolled type 2 diabetes mellitus with hyperglycemia (HCC) Expected: 12/04/2023, Expires: 03/04/2024 [facility] Comment on above: Expected: 12/04/2023, Expires: Start: 12-04-2023 End: 03-04-2024 Lipid 1996 panel - Serum or Plasma LIPID PANEL BASIC Lab Routine Mixed hyperlipidemia Expected: 12/04/2023, Expires: 03/04/2024 [facility] Comment on above: Expected: 12/04/2023, Expires: Start: 11-26-2023 End: 11-26-2023 Patient encounter procedure 11/26/2023 2:45 PM EDT Office Visit Neurology [address] [place], [place] [phone] Aparna Mendoza PA-C [address] [place], [place] [phone] Chronic intractable headache, unspecified headache type [R51.9, G89.29] Neurology Comment on above: Chronic intractable headache, unspecifie d headache type [R51.9, G89.29] Start: 11-15-2023 ANNUAL PCP TEAM CHRONIC DISEASE VISIT ANNUAL PCP TEAM CHRONIC DISEASE VISIT [facility] Start: 11-11-2023 End: 11-11-2023 Patient encounter procedure 11/11/2023 2:40 PM EDT Office Visit [facility] [place] [address] [place], [place] [phone] Kaylee Vincent APRN.POLYSOMNOGRAPHY TECHNICIAN [address] [place], [place] [phone] ed [facility] [place] Comment on above: ed Start: 11-07-2023 ANNUAL PCP TEAM CHRONIC DISEASE VISIT ANNUAL PCP TEAM CHRONIC DISEASE VISIT [facility] Start: 11-07-2023 BP CONTROLLED (<130/80) BP CONTROLLED (<130/80) [facility] in Start: 10-16-2023 Hemoglobin A1c measurement HbA1C [facility] per Start: 08-24-2023 Glaucoma screening Dilated Retinal Exam [facility] Start: 08-24-2023 Hepatitis C antibody, confirmatory test DILATED RETINAL EXAM [facility] Start: 08-15-2023 Hemoglobin A1c/Hemoglobin.total in Blood HBA1C [facility] Start: 08-14-2023 BP CONTROLLED (<130/80) BP CONTROLLED (<130/80) [facility] inic Start: 08-14-2023 Hepatitis B screening URINE ALBUMIN:CREATININE RATIO [facility] Start: 08-14-2023 Hepatitis B surface antibody level LDL CHOLESTEROL [facility] Start: 2023 COVID-19 VACCINE (3 - Moderna series) COVID-19 VACCINE (3 - Moderna series) [facility] Comment on above: Postponed from 02/08/2021 (Declined at t his time) Start: 2023 HEPATITIS B (1 of 3 - 3-dose series) HEPATITIS B (1 of 3 - 3-dose series) [facility] Comment on above: Postponed from 1980 (Declined at t his time) Start: 2023 Hepatitis B Vaccine (1 of 3 - 3-dose series) Hepatitis B Vaccine (1 of 3 - 3-dose series) [facility] Comment on above: Postponed from 1980 (Declined at t his time) Start: 2023 PNEUMOCOCCAL (2 - PCV) PNEUMOCOCCAL (2 - PCV) [facility] Comment on above: Postponed from 11/28/2010 (Declined at t his time) Start: 2023 Pneumococcal vaccination Pneumococcal Vaccine (2 - PCV) [facility] Comment on above: Postponed from 11/28/2010 (Declined at t his time) Start: 05-17-2023 Hemoglobin A1c/Hemoglobin.total in Blood HBA1C [facility] Start: 05-09-2023 3 comp foot exam completed DIABETIC FOOT EXAM [facility] per Start: 05-09-2023 Diabetic foot examination Diabetic Foot Exam [facility] ic Start: 05-06-2023 [facility] Start: 04-25-2023 ANNUAL PCP TEAM CHRONIC DISEASE VISIT ANNUAL PCP TEAM CHRONIC DISEASE VISIT [facility] Start: 02-22-2023 Covid-19 Vaccine ( season) Covid-19 Vaccine ( season) [facility] Start: 02-22-2023 Influenza vaccination [facility] Start: 12-21-2022 Influenza vaccination INFLUENZA (#1) [facility] Comment on above: Postponed from 02/22/2022 (Declined at t his time) Start: 11-15-2022 ANNUAL PCP TEAM CHRONIC DISEASE VISIT ANNUAL PCP TEAM CHRONIC DISEASE VISIT [facility] Start: 11-11-2022 Hemoglobin A1c/Hemoglobin.total in Blood HBA1C [facility] Start: 11-06-2022 End: 01-06-2023 Hemoglobin A1c in Blood HGB A1C Lab Routine Uncontrolled type 2 diabetes mellitus with hyperglycemia (HCC) Expected: 11/06/2022, Expires: 01/06/2023 [facility] Work Phone: Comment on above: Expected: 11/06/2022, Expires: 3 Start: 11-01-2022 End: 01-01-2023 Basic metabolic 2000 panel - Serum or Plasma BASIC METABOLIC PNL Lab Routine Essential hypertension Expected: 11/01/2022, Expires: 01/01/2023 [facility] Work Phone: Comment on above: Expected: 11/01/2022, Expires: 3 Start: 08-31-2022 Hepatitis C antibody, confirmatory test DILATED RETINAL EXAM [facility] Start: 08-29-2022 ANNUAL PCP TEAM CHRONIC DISEASE VISIT ANNUAL PCP TEAM CHRONIC DISEASE VISIT [facility] Start: 08-28-2022 Hepatitis B screening URINE ALBUMIN:CREATININE RATIO [facility] Start: 08-28-2022 Hepatitis B surface antibody level LDL CHOLESTEROL [facility] Start: 08-09-2022 Hemoglobin A1c/Hemoglobin.total in Blood HBA1C [facility] Start: 05-16-2022 ANNUAL PCP TEAM CHRONIC DISEASE VISIT ANNUAL PCP TEAM CHRONIC DISEASE VISIT [facility] Start: 02-22-2022 Influenza vaccination [facility] Start: 02-06-2022 End: 04-08-2022 Hemoglobin A1c in Blood [facility] Work Phone: Comment on above: Expected: 02/06/2022, Expires: 2 Start: 02-06-2022 End: 04-08-2022 HIV 1+2 Ab [Presence] in Serum or Plasma by Immunoassay HIV 1 2 COMBO(AG/AB),WITH REFLEX TO DIFFERENTIATION Lab Routine Screening for HIV (human immunodeficiency virus) Expected: 02/06/2022, Expires: 04/08/2022 [facility] Work Phone: Comment on above: Expected: 02/06/2022, Expires: 2 Start: 12-22-2021 Hemoglobin A1c/Hemoglobin.total in Blood HBA1C [facility] Start: 11-28-2021 Hemoglobin A1c/Hemoglobin.total in Blood HBA1C [facility] Start: 10-18-2021 3 comp foot exam completed DIABETIC FOOT EXAM [facility] per Start: 09-20-2021 Referral to service [facility] Work Phone: Start: 09-20-2021 End: 09-20-2021 Suicide precautions [facility] Work Phone: Start: 09-20-2021 Consultation [facility] Work Phone: Start: 05-16-2021 COVID-19 VACCINE (3 - Booster for Moderna series) COVID-19 VACCINE (3 - Booster for Moderna series) [facility] Start: 02-22-2021 Influenza vaccination INFLUENZA (#1) [facility] Start: 02-08-2021 COVID-19 VACCINE (3 - Booster for Moderna series) COVID-19 VACCINE (3 - Booster for Moderna series) [facility] Start: 02-08-2021 COVID-19 VACCINE (3 - Moderna series) COVID-19 VACCINE (3 - Moderna series) [facility] Start: 11-28-2010 PNEUMOCOCCAL (2 - PCV) PNEUMOCOCCAL (2 - PCV) [facility] Start: 11-28-2010 Pneumococcal vaccination Pneumococcal Vaccine (2 of 2 - PCV) [facility] Start: 2007 HPV Vaccine (1 - 3-dose SCDM series) HPV Vaccine (1 - 3-dose SCDM series) [facility] Start: 1999 HEPATITIS B (1 of 3 - Risk 3-dose series) HEPATITIS B (1 of 3 - Risk 3-dose series) [facility] Start: 1999 Hepatitis B Vaccine (1 of 3 - 19+ 3-dose series) Hepatitis B Vaccine (1 of 3 - 19+ 3-dose series) [facility] Start: 1998 BP CONTROLLED (<130/80) [facility] Start: 1998 HIV SCREENING HIV SCREENING [facility] Start: 1980 HEPATITIS B (1 of 3 - 3-dose series) HEPATITIS B (1 of 3 - 3-dose series) [facility] Start: 1980 Hepatitis B Vaccine (1 of 3 - 3-dose series) Hepatitis B Vaccine (1 of 3 - 3-dose series) [facility] End: 09-27-2021 12 lead ECG ECG 12 Lead ECG Routine Once for 1 Occurrences starting 09/27/2021 until 09/27/2021 [facility] Work Phone: Comment on above: Once for 1 Occurrences starting 09/28/19 until 09/27/2021 Amphetamines [Presen ce] in Urine by Screen method >1000 ng/mL [facility] Work Phone: Barbiturates [Presen ce] in Urine by Screen method [facility] Work Phone: Benzodiazepines [Pre sence] in Urine [facility] Work Phone: Buprenorphine [Mass/ volume] in Urine [facility] Work Phone: Cocaine [Presence] in Urine [facility] Work Phone: Color of Urine [facility] Work Phone: End: 04-10-2024 CT CALCIUM SCOR[place] ([place] Radiology Routine Encounter for screening for cardiovascular disorders 1 Occurrences starting 03/12/2023 until 04/10/2024 [facility] Work Phone: Comment on above: 1 Occurrences starting 03/12/2023 until 04/10/2024 Detection of hemoglobin [facility] Work Phone: End: 03-12-2024 ECG COMPLETE ECG COMPLETE ECG Routine Precordial pain 1 Occurrences starting 03/12/2023 until 03/12/2024 [facility] Work Phone: Comment on above: 1 Occurrences starting 03/12/2023 until 03/12/2024 End: 03-12-2024 Echocardiography ECHO Cardiology Routine Precordial pain 1 Occurrences starting 03/12/2023 until 03/12/2024 [facility] Work Phone: Comment on above: 1 Occurrences starting 03/12/2023 until 03/12/2024 End: 01-31-2024 EGD - THERAPEUTIC, EUS, OR TUBE INTERVENTIONS EGD - THERAPEUTIC, EUS, OR TUBE INTERVENTIONS Endoscopy Routine Gastroparesis due to secondary diabetes (HCC) 1 Occurrences starting 01/30/2023 until 01/31/2024 [facility] Work Phone: Comment on above: 1 Occurrences starting 01/30/2023 until 01/31/2024 End: 12-15-2023 Esophageal motility study w/interp&rpt MANOMETRY ESOPHAGEAL Endoscopy Routine Esophageal dysphagia 1 Occurrences starting 12/14/2022 until 12/15/2023 [facility] Work Phone: Comment on above: 1 Occurrences starting 12/14/2022 until 12/15/2023 End: 01-13-2024 Gastric emptying imaging study NM GASTRIC EMPTYING SOLID Radiology Routine Nausea 1 Occurrences starting 12/14/2022 until 01/13/2024 [facility] Work Phone: Comment on above: 1 Occurrences starting 12/14/2022 until 01/13/2024 Glucose [Mass/volume ] in Urine by Test strip [facility] [employer] Work Phone: Hepb vaccine adult 3 dose schedule for im use HEPATITIS B VACCINE, ADULT AGE 20+, IM Immunization/Injection Routine Encounter for immunization Ordered: 02/06/2022 [facility] Work Phone: Comment on above: Ordered: 02/06/2022 End: 04-25-2023 HOME SLEEP APNEA TEST (HSAT) HOME SLEEP APNEA TEST (HSAT) Procedures Routine Snoring Excessive daytime sleepiness 1 Occurrences starting 04/25/2022 until 04/25/2023 [facility] Work Phone: Comment on above: 1 Occurrences starting 04/25/2022 until 04/25/2023 Ketones [Mass/volume ] in Urine [facility] [employer] Work Phone: Methadone [Presence] in Urine by Screen method [facility] [employer] Phone: End: 03-13-2025 MR Lumbar spine WO contrast MRI LUMBAR SPINE WO IVCON Radiology Routine Chronic bilateral low back pain without sciatica 1 Occurrences starting 02/12/2024 until 03/13/2025 [facility] Work Phone: Comment on above: 1 Occurrences starting 02/12/2024 until 03/13/2025 MR Lumbar spine WO contrast MRI LUMBAR SPINE WO IVCON Radiology Routine Chronic bilateral low back pain without sciatica 02/27/2024 1:55 PM EDT [facility] Work Phone: Nitrite [Presence] in Urine [facility] Work Phone: Njx dx/ther sbst int rlmnr lmbr/sac w/img gdn EPI LUMBAR OR SACRAL W/IMAGING Procedures Routine Chronic bilateral low back pain without sciatica Ordered: 03/03/2024 [facility] Work Phone: Comment on above: Ordered: 03/03/2024 Opiates [Presence] i n Urine by Screen method [facility] Work Phone: oxyCODONE [Presence] in Urine [facility] Work Phone: Patient Education [facility] Work Phone: Patient referral [facility] Work Phone: PFIZER-BIONTECH COVI D-19 VACCINE, AGE 12+ YR (RYAN TOP) PFIZER-BIONTECH COVID-19 VACCINE, AGE 12+ YR (RYAN TOP) Immunization/Injection Routine Encounter for immunization Ordered: 02/06/2022 [facility] Work Phone: Comment on above: Ordered: 02/06/2022 pH of Urine [facility] Work Phone: Phencyclidine [Prese nce] in Urine by Screen method >25 ng/mL [facility] Work Phone: Pneumococcal vaccination PNEUMOC OCCAL VACCINE (PREVNAR 20) Immunization/Injection Routine Encounter for immunization Ordered: 02/06/2022 [facility] Work Phone: Comment on above: Ordered: 02/06/2022 End: 08-14-2023 Polysomnogram POLYSOMNOGRAM (PSG) Procedures Routine BERYL (obstructive sleep apnea) 1 Occurrences starting 08/14/2022 until 08/14/2023 [facility] Work Phone: Comment on above: 1 Occurrences starting 08/14/2022 until 08/14/2023 POST VOID RESIDUAL POST VOID RES IDUAL Procedures Routine Right testicular pain Ordered: 09/15/2021 [facility] Work Phone: Comment on above: Ordered: 09/15/2021 Protein [Mass/volume ] in Urine [facility] Work Phone: End: 01-13-2024 Radiologic exam esophagus single contrast study XR ESOPHAGRAM Radiology Routine Esophageal dysphagia 1 Occurrences starting 12/14/2022 until 01/13/2024 [facility] Work Phone: Comment on above: 1 Occurrences starting 12/14/2022 until 01/13/2024 Specific gravity of Urine [facility] Work Phone: Tetrahydrocannabinol [Presence] in Urine by Screen method >50 ng/mL [facility] Work Phone: Urine dipstick for l eukocyte esterase [facility] Work Phone: Urine dipstick for nitrite [facility] Work Phone: Urine examination [facility] Work Phone: Urobilinogen [Units/ volume] in Urine [facility] Work Phone: End: 01-02-2025 XR Cervical spine AP and Lateral and oblique XR CERV OTHER 4V AP/LAT/OBL Radiology Routine Cervical spine pain 1 Occurrences starting 12/04/2023 until 01/02/2025 [facility] Work Phone: Comment on above: 1 Occurrences starting 12/04/2023 until 01/02/2025 End: 01-02-2025 XR Thoracic spine AP and Lateral and Swimmers XR THORACIC GENERAL 3V AP/LAT/SWIMMERS Radiology Routine Thoracolumbar back pain DDD (degenerative disc disease), thoracolumbar 1 Occurrences starting 12/04/2023 until 01/02/2025 [facility] Comment on above: 1 Occurrences starting 12/04/2023 until 01/02/2025 [facility] Immunizations Immunization Date Immunization Notes Care Provider [facility] 12-14-2020 COVID-19 original vaccine, full dose, monovalent (MODERNA) Michelle Jane MD Work Phone: [facility] 12-02-2020 tetanus toxoid, redu rosalina diphtheria toxoid, and acellular pertussis vaccine, adsorbed Caleb Obrien MD Work Phone: [facility] Work Phone: 11-16-2020 COVID-19 original vaccine, full dose, monovalent (MODERNA) Michelle Jane MD Work Phone: [facility] 04-03-2018 influenza virus vaccine, unspecified formulation Doug Gordon MD Work Phone: [facility] 03-25-2012 influenza virus vaccine, unspecified formulation Caleb Obrien MD Work Phone: [facility] 03-25-2012 tetanus toxoid, redu rosalina diphtheria toxoid, and acellular pertussis vaccine, adsorbed Caleb Obrien MD Work Phone: [facility] 11-28-2009 pneumococcal polysaccharide vaccine, 23 valent Caleb Obrien MD Work Phone: [facility] Work Phone: 11-18-2007 tetanus and diphther ia toxoids, adsorbed, preservative free, for adult use (2 Lf of tetanus toxoid and 2 Lf of diphtheria toxoid) Caleb Obrien MD Work Phone: [facility] Work Phone: NEGATED: Highlighted row has not occurred!02-12-2023 hepatitis B vaccine, adult dosage Britney Cervantes DIGITAL STRATEGIST.CHILD & ADOLESCENT PSYCHIATRIST Work Phone: [facility] Work Phone: Comment on above: Deferred: Postponed NEGATED: Highlighted row has not occurred!02-12-2023 pneumococcal (PCV20) vaccine, 20 valent (PREVNAR 20) Britneyyosi Cervantes APRN.CHILD & ADOLESCENT PSYCHIATRIST Work Phone: [facility] Work Phone: Comment on above: Deferred: Postponed NEGATED: Highlighted row has not occurred!02-06-2022 COVID-19 vaccine, age 12+ yr (Hipscan-BIONTArt Sumo - RYAN TOP) Britneyyosi Cervantes APRN.CHILD & ADOLESCENT PSYCHIATRIST Work Phone: [facility] Work Phone: Comment on above: Deferred: Postponed NEGATED: Highlighted row has not occurred!02-06-2022 hepatitis B vaccine, adult dosage Britney Arshads DIGITAL STRATEGIST.CHILD & ADOLESCENT PSYCHIATRIST Work Phone: [facility] Work Phone: NEGATED: Highlighted row has not occurred!02-06-2022 pneumococcal (PCV20) vaccine, 20 valent (PREVNAR 20) Britneyyosi Cervantes APRN.CHILD & ADOLESCENT PSYCHIATRIST Work Phone: [facility] Work Phone: Payers Date Payer Category Payer Unknown [id number] 2022 Private Health Insurance HUMANA HUMANA MEDICAID [facility] [id number] 2022-Present [address] [address] [place] [address] Medicaid [id number] 2021 Medicaid [id number] 2021 Medicaid MEDICAID [facility] MEDICAID [id number] 2021-Present [phone] [address] [place] [address] Medicaid [id number] 2021 Medicaid [id number] 2018 Self-pay 2016 Unknown [id number] 1980 Unknown [id number] 1980 Unknown [id number] 00 1980 Unknown [id number] 51 1980 Unknown [id number] 51 1980 Unknown [id number] 51 Medicaid [id number] Medicaid [id number] Unknown [id number] 43 Unknown [id number] 62 Unknown [id number] 62 Unknown [id number] 62 Social History Date Type Detail Facility Start: 08-11-1995 End: 09-01-2024 Tobacco smoking status NHIS Smokes tobacco daily [facility] Start: 08-11-1995 History of tobacco use Cigarette Smoker [facility] Start: 11-10-2014 End: 06-01-2024 Cigarettes smoked current (pack per day) - Reported 0.5 [facility] Start: 11-10-2014 End: 09-01-2024 Tobacco use and exposure Smokeless tobacco non-user [facility] Start: 09-15-2021 End: 09-07-2024 Alcohol intake Current non-drinker of alcohol (finding) [facility] Start: 10-04-2020 History SDOH Alcohol Std Drinks 98 [facility] Start: 10-04-2020 History SDOH Alcohol Binge 1 [facility] Start: 10-04-2020 History SDOH Social Connections Phone 3 [facility] Start: 10-04-2020 History SDOH Social Connections Get Together 4 [facility] Start: 10-04-2020 History SDOH Social Connections Membership 2 [facility] Start: 08-30-2021 History SDOH Physical Activity DPW 0 [facility] Start: 10-04-2020 History SDOH Stress 5 [facility] Start: 10-04-2020 Education 12 [facility] Start: 1980 Sex Assigned At Not on file [facility] Start: 04-18-2020 End: 05-09-2022 Exposure to SARS-CoV-2 (event) Not sure [facility] Start: 09-20-2021 End: 07-28-2024 Tobacco smoking status NHIS Unknown if ever smoked [facility] Start: 09-23-2020 None [facility] Start: 09-23-2020 Spouse/ Significant Other [facility] Start: 05-21-2018 Cigarettes [facility] Start: 1980 Sex Assigned At Male [facility] Start: 09-22-2021 Alcohol intake Lifetime non-drinker (finding) [facility] Start: 10-08-2021 End: 10-18-2021 Exposure to SARS-CoV-2 (event) Unable to assess [facility] Work Phone: Start: 10-04-2020 End: 06-01-2024 Social connection and isolation panel [facility] Do you belong to any clubs or organizations such as nondenominational groups, unions, fraternal or athletic groups, or school groups? No [facility] Are you now , , , , never or living with a partner? [facility] Start: 05-25-2012 Frequency of Alcohol Consumption Not on file [facility] How often do you hav e 6 or more drinks on 1 occasion? Never [facility] How hard is it for y ou to pay for the very basics like food, housing, medical care, and heating Somewhat hard [facility] Do you feel stress - tense, restless, nervous, or anxious, or unable to sleep at night because your mind is troubled all the time - these days [OSQ] Very much [facility] (I/We) worried asmita er (my/our) food would run out before (I/we) got money to buy more. Never true [facility] Start: 04-01-2020 Tobacco use and exposure User of smokeless tobacco [facility] How often to you hav e a drink containing alcohol? Monthly or less [facility] Do you feel stress - tense, restless, nervous, or anxious, or unable to sleep at night because your mind is troubled all the time - these days [OSQ] To some extent [facility] In the past 12 month s, was there a time when you were not able to pay the mortgage or rent on time? Yes [facility] Start: 07-28-2024 Current Every day smoker [facility] [employer] Work Phone: Start: 07-28-2024 1/2 PACK [facility] [employer] Work Phone: Start: 07-28-2024 Yes [facility] [employer] Work Phone: Start: 07-28-2024 No [facility] [employer] Work Phone: Medical Equipment Procedure Code Equipment Code Equipment Original Text Equipment Identifier Dates [id number], [id number], [id number], [id number], [id number], [id number], [id number], [id number], [id number] Start: 09-11-2017 End: 09-14-2024 Comment on above: Choose brand covered by insurance. Test blood sugar(s) 3 times daily. Dx: Type 2 DM - Uncontrolled E11.65 Insulin: Yes Use to inject insuli n daily as directed. Choose lancets cover ed by insurance. Test blood sugar(s) 3 times daily. Dx: Type 2 DM - Uncontrolled E11.65 Insulin: Yes Check sugars 3 times daily and as directed. DM type 2 E11.65 Insulin: yes Use to inject insuli n as directed. Up to 5 daily injections Functional Status Date Assessment Result Facility 11-23-2014 Are you deaf, or do you have serious difficulty hearing No 11/23/2014 1:48 PM EDT Selene Reyes MA No [facility] 11-23-2014 Are you blind, or do you have serious difficulty seeing, even when wearing glasses No 11/23/2014 1:48 PM EDT Selene Reyes MA No [facility] 11-23-2014 Do you have serious difficulty walking or climbing stairs No 11/23/2014 1:48 PM Selene Gamboa MA [facility] 11-23-2014 Do you have difficul ty dressing or bathing No 11/23/2014 1:48 PM MIHIRT Selene Reyes MA [facility] 11-23-2014 Because of a physica l, mental, or emotional condition, do you have difficulty doing errands alone such as visiting a physician's office or shopping No 11/23/2014 1:48 PM MIHIRT Selene Reyes MA [facility] Mental Status Date Assessment Result Facility 07-28-2024 Cognitive function Appropriate;Cooperstevenson mayo [facility] Work Phone: 12-12-2021 Cognitive function Level Of Cons ciousness Awake;Alert;Appropriate;Roe crawford [facility] Work Phone: 11-23-2014 Because of a physica l, mental, or emotional condition, do you have serious difficulty concentrating, remembering, or making decisions No 11/23/2014 1:48 PM MIHIRT Selene Reyes MA No [facility] Clinical Notes 04-06-2005 to 03-15-2025 Telephone Encounter - Kye Meade [facility] - 02/24/2025 3:44 PM EDTTelephone Encounter - Kye Meade [facility] - 02/24/2025 3:44 PM EDTTelephone Encounter - Kevin Weaver - 02/03/2025 10:31 AM EDT Note Date & Type Note Facility 03-15-2025 Note HNO ID: [id number] Author: KYE MEADE, [facility] Service: ? Author Type: Pharmacist Type: Progress Notes Filed: 03/15/2025 15:40 Note Text: Patient's case discussed with the student. Agree with findings and plan as outlined by the student. Kye Meade, PharmD, [facility] Primary Care Clinical Pharmacist [facility] 03-15-2025 Note HNO ID: [id number] Author: ?, ?, ? Service: ? Author Type: ? Type: Progress Notes Filed: 03/15/2025 15:40 Note Text: Primary Care Pharmacy Visit CC (Reason for Consult): (E11.65) Uncontrolled type 2 diabetes mellitus with hyperglycemia (HCC) (primary encounter diagnosis) Goal: A1c < 7% Referring Provider: Dr. Jane Last Collaborating Provider Visit: 09/07/24 Denver Hollingsworth is a 44 year old male presenting for follow up visit telephone call. Patient consents to pharmacy collaborative practice agreement. At last PharmD visit Basaglar was increased to 64 units BID. Interim Events: N/A HPI: Reports that sugars is out of control Still struggling with Freestyle sticking to skin. Reports that Dexcom stuck better to the skin. Reports that Remeron has been helping depression. Confirms he is still on Lybalvi. Had psychology appointment on 03/09 Did not have snack before low episode on 03/07. Had shakiness with low. Patient denies CP, SOB, GAMBINO, blurred vision, dizziness or lightheadedness Patient denies symptoms of hypoglycemia (sweating, anxiety, palpitations, hunger, and tremor) Patient reports symptoms of hyperglycemia (polyuria, polydipsia, polyphagia) Has increased urination. Reports insulin helps reduce frequency. Patient denies potential medication adverse effects Diet/Lifestyle: No changes to diet since last visit. Acknowledges the need to improve diet Tobacco: Uses 1 pack of cigarettes a day, has 1st cigarette upon waking up Past medical history reviewed. ACTIVE PROBLEM LIST Attention Deficit Disorder Uncontrolled Type 2 Diabetes Mellitus With Hyperglycemia (Hcc) Essential Hypertension Beryl (Obstructive Sleep Apnea) Cavus Deformity of Foot, Acquired Cervical Spine Pain Anxiety and Depression Mixed Hyperlipidemia Spinal Stenosis, Lumbar Region, Without Neurogenic Claudication Right Testicular Pain Tobacco Use Gastroesophageal Reflux Disease With Esophagitis Bipolar Disorder (Hcc) Substance Abuse (Hcc) Obesity (Bmi 30.0-34.9) Contusion of Unspecified Back Wall of Thorax, Initial Encounter Acute Lumbosacral Myofascial Strain Back Contusion Chronic Back Pain Bronchitis Cervical Strain Cocaine Dependence With Intoxication (Hcc) Gallstone Pancreatitis (Hcc) Gastroesophageal Reflux Disease Hyperosmolar Non-Ketotic State in Patient With Type 2 Diabetes Mellitus (Hcc) Injury of Head Laceration of Leg, Right Orchitis and Epididymitis Ptsd (Post-Traumatic Stress Disorder) Viral Infection Belching Change in Bowel Habits Early Satiety History of Cocaine Use Nausea and Vomiting Gastroparesis Due to Secondary Diabetes (Hcc) Precordial Pain Sensorineural Hearing Loss (Snhl) of Both Ears Thoracolumbar Back Pain Ddd (Degenerative Disc Disease), Thoracolumbar 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 of hyperactivity diagnosed in childhood Back pain 02/12/2012 Bile acid esophageal reflux 11/14/2022 Bipolar disorder (HCC) Chronic post-traumatic headache Closed fracture of dorsal (thoracic) vertebra without mention of spinal cord injury 04/03/2012 Corns and callosities 12/05/2009 Depressive disorder, not elsewhere classified 06/10/2012 DIABETES MELLITUS TYPE II-UNCOMPL 08/30/2008 Dysmetabolic syndrome X 07/21/2008 Gastroesophageal reflux disease with esophagitis Hydronephrosis 11/13/2022 Mild right Nonspecific abnormal results of liver function study 04/06/2005 Ferritin 225, HBsAg and Hep C negative in 10-30 U/S Fatty Liver BERYL (obstructive sleep apnea) DME [facility] Home Respiratory Pain in joint, lower leg 06/05/2012 Right testicular pain 09/15/2021 Substance abuse (HCC) Tobacco use Unspecified essential hypertension 08/30/2008 ALLERGIES Allergen Reactions Hydrocodone Bitartr* GI Upset Trulicity [Dulaglut* Contraindication-Medical Surgical GASTROPARESIS, cannot use GLP1 Fibrate Anti-Lipide* Myalgia Medications: Pill bottles are not present. Adherence: denies missed doses. Affordability: no concerns Medication List Medication Directions Comments Action/Plan Blood-Glucose Sensor (FREESTYLE JOSE 3 PLUS SENSOR) allyson Apply new sensor every fifteen (15) days to upper arm. clonazePAM (KLONOPIN) 1 mg tablet Take 1 tablet by mouth three times a day as needed for anxiety for up to 30 days. CPAP Autopap 5-20 cm H2O, Heat Humidity, suitable mask, [employer] supplies, opt Chinstrap, G47.33. Patient not taking: Reported on 08/22/2023 empagliflozin (JARDIANCE) 10 mg tablet Take 1 tablet by mouth daily with breakfast. Confirms insulin glargine 100 unit/mL (3 mL) Inject 64 Units subcutaneously two times a day. Has been using 62 units insulin lispro (HUMALOG KWIKPEN INSULIN) 100 unit/mL Inject 15 Units subcutaneously three times a day before meals. Plus sliding scale (1 unit for every 50 pts >150 pts). Confirms Uses sliding scale wi (more content not included)... [facility] 02-24-2025 Telephone encounter Note Called patient for scheduled phone appt. Patient request to reschedule, states he was on the phone with an commonwealth attorney. Appt rescheduled for 03/15. Kye Meade PharmD, [facility] Primary Care Clinical Pharmacist [facility] 02-24-2025 Miscellaneous Notes Called patient for scheduled phone appt. Patient request to reschedule, states he was on the phone with an commonwealth attorney. Appt rescheduled for 03/15. Kye Meade PharmD, [facility] Primary [facility] Clinical Pharmacist documented in this encounter [facility] 02-03-2025 Telephone encounter Note Called both numbers listed in chart. Neither have a voicemail set up. First attempt. [facility] 02-03-2025 Miscellaneous Notes Called both numbers listed in chart. Neither have a voicemail set up. First attempt. Called patient for scheduled phone appt today. Unable to reach x 3 or LMOM since voicemail box is not set up yet. Tried calling both home and cell phones. Primary Care Pharmacy Rescheduling Outreach Call center, please contact patient and reschedule telephone visit for Diabetes management within ~4 week(s). (Visit length: 30 minutes) Thank you, Kye Meade [facility] 02/03/2025 10:17 AM documented in this encounter [facility] 02-03-2025 Telephone encounter Note Called patient for scheduled phone appt today. Unable to reach x 3 or LMOM since voicemail box is not set up yet. Tried calling both home and cell phones. Primary [facility] Pharm[facility] Rescheduling Outreach Call center, please contact patient and reschedule telephone visit for Diabetes management within ~4 week(s). (Visit length: 30 minutes) Thank you, Kye Meade carlos 02/03/2025 10:17 AM [facility] 01-06-2025 History of Present illness Narrative Images from the original note were not included. Primary Care Pharmacy Visit CC (Reason for Consult): Diabetes (E11.65) Uncontrolled type 2 diabetes mellitus with hyperglycemia (HCC) (primary encounter diagnosis) Goal: A1c < 7% Referring Provider: Dr. Jane Last Collaborating Provider Visit: 09/07/24 Denver Hollingsworth is a 44 year old male presenting for follow up visit telephone call. Patient consents to pharmacy collaborative practice agreement. Interim Events: 08/24: went to urgent care for lightheadedness, dizziness, anxiety, had stopped all meds for 6 weeks; POC glucose was 548 mg/dL so he went to ER 09/01: PCP restarted sertraline, quetiapine; ordered short-term clonazepam; referred to behavioral health; metformin and long-acting insulin restarted, pt referred to pharmacy 09/07: initial PharmD visit; meds continued since hyperglycemia sx improved and no SMBG to review; rosuvastatin started; CGM ordered; dietary mods encouraged 09/07: PCP adjusted psych meds 09/14: pt requested restarting mealtime insulin, so it was restarted 09/16: Jardiance started 10/28: insulins increased; advised to discuss olanzapine with psychiatrist since appetite and Bgs had increased 12/09: mealtime insulin increased; advised to get labs HPI: States he is having a lot of issue with keeping the Freestyle 3 sensors on. Reports he does try putting a patch overtop, has Freestyle Jose 3 overlay patch. Uses Old Spice body wash, says it is not moisturizing. Skin is not wet. Denies any hair where it sticks. Uses alcohol swab to clean arm beforehand. Wondering if skin is too oily. Didn't see psych yet to discuss medication, appt had to get rescheduled. Thinks appt is in January. Feeling tired and sluggish. This is pretty typical for him. Thirsty a lot, drinks a case of water daily. Urinating frequently, often 2x/hour. Not waking up at night, has strong sleeping pill. No recent vision changes. No new/worsening numbness or tingling in hands or feet. Does have neuropathy in feet, last week stepped on nail and didn't realize it. Current DM Medications: Metformin 500mg tabs - 1000mg BID Empagliflozin (Jardiance) 10mg daily Insulin glargine (Lantus) 56 units BID Insulin lispro (Humalog) 15 units TIDAC + SSI (usually taking 20-24 units with meals, usually skips breakfast; if he eats something starchy and sugars are already high, he'll take a little extra 5-6 units with his meal) Past DM medications: Jardiance - thinks it worked but cost was too high Ozempic - reports he never tried, was on back order Trulicity - gastroparesis CGM Data Preventative Medications: On MADDI/ARB: No On Statin: Yes ROS: Patient denies CP, SOB, GAMBINO, blurred vision, dizziness or lightheadedness Patient denies symptoms of hypoglycemia (sweating, anxiety, palpitations, hunger, and tremor) Patient reports symptoms of hyperglycemia (polyuria, polydipsia, polyphagia) Patient denies potential medication adverse effects DIET/EXERCISE/SOCIAL Hx: Still has a large appetite No changes MEDICATIONS: Pill bottles are not present. Adherence: denies missed doses. Pharmacy: [facility] [address] [place] [address] [phone] - [phone] Rx coverage: Payor: [place] [employer] / Plan: Score [employer] Board [place] / Product Type: Medicaid / Medications affordable? Yes Diabetes Supplies: Yes Organization system: ACTIVE PROBLEM LIST Attention Deficit Disorder Uncontrolled Type 2 Diabetes Mellitus With Hyperglycemia (Hcc) Essential Hypertension Beryl (Obstructive Sleep Apnea) Cavus Deformity of Foot, Acquired Cervical Spine Pain Anxiety and Depression Mixed Hyperlipidemia Spinal Stenosis, Lumbar Region, Without Neurogenic Claudication Right Testicular Pain Tobacco Use Gastroesophageal Reflux Disease With Esophagitis Bipolar Disorder (Hcc) Substance Abuse (Hcc) Obesity (Bmi 30.0-34.9) Contusion of Unspecified Back Wall of Thorax, Initial Encounter Acute Lumbosacral Myofascial Strain Back Contusion Chronic Back Pain Bronchitis Cervical Strain Cocaine Dependence With Intoxication (Hcc) Gallstone Pancreatitis (Hcc) Gastroesophageal Reflux Disease Hyperosmolar Non-Ketotic State in Patient With Type 2 Diabetes Mellitus (Hcc) Injury of Head Laceration of Leg, Right Orchitis and Epididymitis Ptsd (Post-Traumatic Stress Disorder) Viral Infection Belching Change in Bowel Habits Early Satiety History of Cocaine Use Nausea and Vomiting Gastroparesis Due to Secondary Diabetes (Hcc) Precordial Pain Sensorineural Hearing Loss (Snhl) of Both Ears Thoracolumbar Back Pain Ddd (Degenerative Disc Disease), Thoracolumbar 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 of hyperactivity diagnosed in childhood Back pain 02/12/2012 Bile acid esophageal reflux 11/14/2022 Bipolar disorder (HCC) Chronic post-traumatic headache Closed fracture of dorsal (thoracic) vertebra without mention of spinal cord injury 04/03/2012 Corns and callosities 12/05/2009 Depressive disorder, not elsewhere classified 06/10/2012 DIABETES MELLITUS TYPE II-UNCOMPL 08/30/2008 Dysmetabolic syndrome X 07/21/2008 Gastroesophageal reflux disease with esophagitis Hydronephrosis 11/13/2022 Mild right Nonspecific abnormal results of liver function study 04/06/2005 Ferritin 225, HBsAg and Hep C negative in 10-30 U/S Fatty Liver BERYL (obstructive sleep apnea) DME [facility] Respiratory Pain in joint, lower leg 06/05/2012 Right testicular pain 09/15/2021 Substance abuse (HCC) Tobacco use Unspecified essential hypertension 08/30/2008 Past medical history reviewed. ALLERGIES Allergen Reactions Hydrocodone Bitartr* GI Upset Trulicity [Dulaglut* Contraindication-Medical Surgical GASTROPARESIS, cannot use GLP1 Fibrate Anti-Lipide* Myalgia Medication List Medication Directions Comments Action/Plan Blood-Glucose Sensor (FREESTYLE JOSE 3 PLUS SENSOR) allyson Apply new sensor every fifteen (15) days to upper arm. clonazePAM (KLONOPIN) 1 mg tablet Take 1 tablet by mouth three times a day as needed for anxiety for up to 30 days. CPAP Autopap 5-20 cm H2O, Heat Humidity, suitable mask, [employer] supplies, opt Chinstrap, G47.33. Patient not taking: Reported on 08/22/2023 empagliflozin (JARDIANCE) 10 mg tablet Take 1 tablet by mouth daily with breakfast. insulin glargine 100 unit/mL (3 mL) Inject 56 Units subcutaneously two times a day. or as directed insulin lispro (HUMALOG KWIKPEN INSULIN) 100 unit/mL Inject 15 Units subcutaneously three times a day before meals. Plus sliding scale (1 unit for every 50 pts >150 pts). insulin needles, DISPOSABLE, (BD INSULIN PEN NEEDLE UF) 31 gauge x 5/16 Use to inject insulin 4 times daily as directed. LYBALVI 10-10 mg tablet Take 1 tablet by mouth daily at bedtime. metFORMIN (GLUCOPHAGE) 500 mg tablet Take 2 tablets by mouth two times a day with meals. omeprazole (PRILOSEC) 40 mg capsule Take 1 capsule by mouth two times a day. QUEtiapine (SEROQUEL) 50 mg tablet Take 1 tablet by mouth daily at bedtime. rosuvastatin (CRESTOR) 40 mg tablet Take 1 tablet by mouth once daily. sertraline (ZOLOFT) 100 mg tablet Take 1 tablet by mouth once daily. Exam: There were no vitals taken for this visit. Last 3 Encounter BP Readings: Date: BP: 09/07/2024 130/82 09/01/2024 122/88 08/24/2024 144/88 Wt: 118 kg (260 lb 2.3 oz) BMI: 31.67 kg/(m^2) LABS: Reviewed Lab Results Component Value Date HBA1C 11.8 08/24/2024 HBA1C 10.6 07/17/2023 HBA1C 6.8 02/12/2023 HBA1C 12.7 09/19/2020 HBA1C 10.4 08/03/2019 HBA1C 12.0 01/19/2019 HBA1C 10.0 10/20/2018 CMP: Glucose 469 08/24/2024 BUN 19 08/24/2024 Creatinine, Whole Blood (iSTAT) 0.77 08/24/2024 Sodium 130 08/24/2024 Potassium 4.2 08/24/2024 Chloride 96 08/24/2024 CO2 21 08/24/2024 Protein, Total 7.5 08/24/2024 Albumin 4.4 08/24/2024 Calcium 10.1 08/24/2024 Alkaline Phosphatase 147 08/24/2024 Bilirubin, Total 0.4 08/24/2024 AST 15 08/24/2024 ALT 31 08/24/2024 eGFR 113 Lab Results Component Value Date CHOL 278 08/24/2024 CHOL 542 09/19/2020 LDL 08/24/2024 Comment: Unable to calculate due to increased Triglycerides. See LDL-Chol, Direct. LDL 07/17/2023 Comment: Unable to calculate due to increased Triglycerides. A Direct LDL Cholesterol measurement will not be performed. If clinically indicated, a fasting Basic Lipid Panel (LIPB) may be ordered. LDL 09/19/2020 Unable to calculate due to increased Triglycerides. See LDL-Chol, Direct. HDL 26 08/24/2024 HDL 12 09/19/2020 TG 1,384 08/24/2024 TG 4,520 09/19/2020 The 10-year ASCVD risk score (Tom GOFF, et al., 2019) is: 35% Values used to calculate the score: Age: 44 years Sex: Male Is Non- : No Diabetic: Yes Tobacco smoker: Yes Systolic Blood Pressure: 130 mmHg Is BP treated: No HDL Cholesterol: 26 mg/dL Total Cholesterol: 278 mg/dL Albumin/Creat Ratio (mg/g) Date Value 07/17/2023 29 PHARMACOTHERAPY ASSESSMENT/PLAN: 1. Uncontrolled type 2 diabetes mellitus with hyperglycemia (HCC) - ICD9: 250.02, ICD10: E11.65 A1c goal < 7%; uncontrolled (last A1c 11.8%); TIR not at goal; (+) sx hyperglycemia, (-) sx hypoglycemia; will increase insulin today; due for labs, will wait before increasing Jardiance; some BG elevation may be caused by newer psych med that increases appetite INCREASE Basaglar to 64 units BID Continue other medications Discussed adhesion techniques for CGM sensors. Advised purchasing Skin Tac wipes to help. Call customer service for replacement sensors. Advised to get labs prior to next visit Counseled on the importance of monitoring feet DAILY. Needs to report any s/sx of infection to PCP SIRIA. Advised to call psych office to discuss potential med alternative that will not impact DM as greatly Due for dilated retinal eye exam, stressed importance of getting done yearly - INSULIN GLARGINE (U-100) 100 UNIT/ML (3 ML) SUBCUTANEOUS PEN Health Maintenance - Diabetes Topic Date Due Pneumococcal Vaccine (2 of 2 - PCV) 11/28/2010 Diabetic Foot Exam 05/09/2023 Dilated Retinal Exam 08/24/2023 Urine Albumin:Creatinine Ratio 07/17/2024 HbA1C 11/24/2024 Follow-up Patient is not scheduled to see PCP team. Patient to have f/up with PharmD team on 02/03. Patient verbalized understanding of instructions. Kye Meade PharmD, [facility] Primary Care Clinical Pharmacist Time spent: 26 mins documented in this encounter [facility] 01-06-2025 Note HNO ID: [id number] Author: KYE MEADE RPh Service: ? Author Type: Pharmacist Type: Progress Notes Filed: 01/06/2025 11:50 Note Text: Primary Care Pharmacy Visit CC (Reason for Consult): Diabetes (E11.65) Uncontrolled type 2 diabetes mellitus with hyperglycemia (HCC) (primary encounter diagnosis) Goal: A1c < 7% Referring Provider: Dr. Jane Last Collaborating Provider Visit: 09/07/24 Denver Hollingsworth is a 44 year old male presenting for follow up visit telephone call. Patient consents to pharmacy collaborative practice agreement. Interim Events: 08/24: went to urgent care for lightheadedness, dizziness, anxiety, had stopped all meds for 6 weeks; POC glucose was 548 mg/dL so he went to ER 09/01: PCP restarted sertraline, quetiapine; ordered short-term clonazepam; referred to behavioral health; metformin and long-acting insulin restarted, pt referred to pharmacy 09/07: initial PharmD visit; meds continued since hyperglycemia sx improved and no SMBG to review; rosuvastatin started; CGM ordered; dietary mods encouraged 09/07: PCP adjusted psych meds 09/14: pt requested restarting mealtime insulin, so it was restarted 09/16: Jardiance started 10/28: insulins increased; advised to discuss olanzapine with psychiatrist since appetite and Bgs had increased 12/09: mealtime insulin increased; advised to get labs HPI: States he is having a lot of issue with keeping the Freestyle 3 sensors on. Reports he does try putting a patch overtop, has Freestyle Jose 3 overlay patch. Uses Old Spice body wash, says it is not moisturizing. Skin is not wet. Denies any hair where it sticks. Uses alcohol swab to clean arm beforehand. Wondering if skin is too oily. Didn't see psych yet to discuss medication, appt had to get rescheduled. Thinks appt is in January. Feeling tired and sluggish. This is pretty typical for him. Thirsty a lot, drinks a case of water daily. Urinating frequently, often 2x/hour. Not waking up at night, has strong sleeping pill. No recent vision changes. No new/worsening numbness or tingling in hands or feet. Does have neuropathy in feet, last week stepped on nail and didn't realize it. Current DM Medications: Metformin 500mg tabs - 1000mg BID Empagliflozin (Jardiance) 10mg daily Insulin glargine (Lantus) 56 units BID Insulin lispro (Humalog) 15 units TIDAC + SSI (usually taking 20-24 units with meals, usually skips breakfast; if he eats something starchy and sugars are already high, he'll take a little extra 5-6 units with his meal) Past DM medications: Jardiance - thinks it worked but cost was too high Ozempic - reports he never tried, was on back order Trulicity - gastroparesis CGM Data Preventative Medications: On MADDI/ARB: No On Statin: Yes ROS: Patient denies CP, SOB, GAMBINO, blurred vision, dizziness or lightheadedness Patient denies symptoms of hypoglycemia (sweating, anxiety, palpitations, hunger, and tremor) Patient reports symptoms of hyperglycemia (polyuria, polydipsia, polyphagia) Patient denies potential medication adverse effects DIET/EXERCISE/SOCIAL Hx: Still has a large appetite No changes MEDICATIONS: Pill bottles are not present. Adherence: denies missed doses. Pharmacy: [facility] [address] [place] [address] [address] [facility] - [phone] Rx coverage: Payor: [place] [employer] / Plan: [employer] MEDICA[employer] [facility] / Product Type: Medicaid / Medications affordable? Yes Diabetes Supplies: Yes Organization system: ACTIVE PROBLEM LIST Attention Deficit Disorder Uncontrolled Type 2 Diabetes Mellitus With Hyperglycemia (Hcc) Essential Hypertension Beryl (Obstructive Sleep Apnea) Cavus Deformity of Foot, Acquired Cervical Spine Pain Anxiety and Depression Mixed Hyperlipidemia Spinal Stenosis, Lumbar Region, Without Neurogenic Claudication Right Testicular Pain Tobacco Use Gastroesophageal Reflux Disease With Esophagitis Bipolar Disorder (Hcc) Substance Abuse (Hcc) Obesity (Bmi 30.0-34.9) Contusion of Unspecified Back Wall of Thorax, Initial Encounter Acute Lumbosacral Myofascial Strain Back Contusion Chronic Back Pain Bronchitis Cervical Strain Cocaine Dependence With Intoxication (Hcc) Gallstone Pancreatitis (Hcc) Gastroesophageal Reflux Disease Hyperosmolar Non-Ketotic State in Patient With Type 2 Diabetes Mellitus (Hcc) Injury of Head Laceration of Leg, Right Orchitis and Epididymitis Ptsd (Post-Traumatic Stress Disorder) Viral Infection Belching Change in Bowel Habits Early Satiety History of Cocaine Use Nausea and Vomiting Gastroparesis Due to Secondary Diabetes (Hcc) Precordial Pain Sensorineural Hearing Loss (Snhl) of Both Ears Thoracolumbar Back Pain Ddd (Degenerative Disc Disease), Thoracolumbar 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 of hyperactivity diagnosed in childhood Back pain (more content not included)... [facility] 12-09-2024 History of Present illness Narrative Images from the original note were not included. Primary Care Pharmacy Visit CC (Reason for Consult): Diabetes (E11.65) Uncontrolled type 2 diabetes mellitus with hyperglycemia (HCC) (primary encounter diagnosis) Goal: A1c < 7% Last Collaborating Provider Visit: 09/07/24 Denver Hollingsworth is a 44 year old male presenting for follow up visit telephone call. Patient consents to pharmacy collaborative practice agreement. Interim Events: 08/24: went to urgent care for lightheadedness, dizziness, anxiety, had stopped all meds for 6 weeks; POC glucose was 548 mg/dL so he went to ER 09/01: PCP restarted sertraline, quetiapine; ordered short-term clonazepam; referred to behavioral health; metformin and long-acting insulin restarted, pt referred to pharmacy 09/07: initial PharmD visit; meds continued since hyperglycemia sx improved and no SMBG to review; rosuvastatin started; CGM ordered; dietary mods encouraged 09/07: PCP adjusted psych meds 09/14: pt requested restarting mealtime insulin, so it was restarted 09/16: Jardiance started 10/28: insulins increased; advised to discuss olanzapine with psychiatrist since appetite and Bgs had increased HPI: Hasn't seen psychiatry yet to discuss new medication increasing appetite. Has an appt tomorrow and plans to discuss if can have a med change. Reports adherence to all medications. No issues with Jardiance. Current DM Medications: Metformin 500mg tabs - 1000mg BID Empagliflozin (Jardiance) 10mg daily Insulin glargine (Lantus) 56 units BID Insulin lispro (Humalog) 15 units TIDAC + SSI (using 12 units base + SSI; usually taking 16 units with meals; getting 2-3 shots/day - doesn't eat breakfast so skips shot, taking full dose with lunch and dinner and will take a full dose with evening snack if has a high-carb dinner, otherwise will skip) Past DM medications: Jardiance - thinks it worked but cost was too high Ozempic - reports he never tried, was on back order Trulicity - gastroparesis CGM Data Had a low in the 60s last Saturday - took insulin shot but then didn't eat dinner; treated with cereal Preventative Medications: On MADDI/ARB: No On Statin: Yes DIET/EXERCISE/SOCIAL Hx: No changes from last month I just eat constantly since starting psych medication MEDICATIONS: Pill bottles are not present. Adherence: denies missed doses. Pharmacy: [facility] [address] [place] [address] [address] [phone] Rx coverage: Payor: [place] [employer] / Plan: Score [employer] Board [place] / Product Type: Medicaid / Medications affordable? Yes Diabetes Supplies: Yes Organization system: ACTIVE PROBLEM LIST Attention Deficit Disorder Uncontrolled Type 2 Diabetes Mellitus With Hyperglycemia (Hcc) Essential Hypertension Beryl (Obstructive Sleep Apnea) Cavus Deformity of Foot, Acquired Cervical Spine Pain Anxiety and Depression Mixed Hyperlipidemia Spinal Stenosis, Lumbar Region, Without Neurogenic Claudication Right Testicular Pain Tobacco Use Gastroesophageal Reflux Disease With Esophagitis Bipolar Disorder (Hcc) Substance Abuse (Hcc) Obesity (Bmi 30.0-34.9) Contusion of Unspecified Back Wall of Thorax, Initial Encounter Acute Lumbosacral Myofascial Strain Back Contusion Chronic Back Pain Bronchitis Cervical Strain Cocaine Dependence With Intoxication (Hcc) Gallstone Pancreatitis (Hcc) Gastroesophageal Reflux Disease Hyperosmolar Non-Ketotic State in Patient With Type 2 Diabetes Mellitus (Hcc) Injury of Head Laceration of Leg, Right Orchitis and Epididymitis Ptsd (Post-Traumatic Stress Disorder) Viral Infection Belching Change in Bowel Habits Early Satiety History of Cocaine Use Nausea and Vomiting Gastroparesis Due to Secondary Diabetes (Hcc) Precordial Pain Sensorineural Hearing Loss (Snhl) of Both Ears Thoracolumbar Back Pain Ddd (Degenerative Disc Disease), Thoracolumbar 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 of hyperactivity diagnosed in childhood Back pain 02/12/2012 Bile acid esophageal reflux 11/14/2022 Bipolar disorder (HCC) Chronic post-traumatic headache Closed fracture of dorsal (thoracic) vertebra without mention of spinal cord injury 04/03/2012 Corns and callosities 12/05/2009 Depressive disorder, not elsewhere classified 06/10/2012 DIABETES MELLITUS TYPE II-UNCOMPL 08/30/2008 Dysmetabolic syndrome X 07/21/2008 Gastroesophageal reflux disease with esophagitis Hydronephrosis 11/13/2022 Mild right Nonspecific abnormal results of liver function study 04/06/2005 Ferritin 225, HBsAg and Hep C negative in 5- U/S Fatty Liver BERYL (obstructive sleep apnea) DME [facility] Respiratory Pain in joint, lower leg 06/05/2012 Right testicular pain 09/15/2021 Substance abuse (HCC) Tobacco use Unspecified essential hypertension 08/30/2008 Past medical history reviewed. ALLERGIES Allergen Reactions Hydrocodone Bitartr* GI Upset Trulicity [Dulaglut* Contraindication-Medical Surgical GASTROPARESIS, cannot use GLP1 Fibrate Anti-Lipide* Myalgia Medication List Medication Directions Comments Action/Plan Blood-Glucose Sensor (FREESTYLE JOSE 3 PLUS SENSOR) allyson Apply new sensor every fifteen (15) days to upper arm. clonazePAM (KLONOPIN) 1 mg tablet Take 1 tablet by mouth three times a day as needed for anxiety for up to 30 days. CPAP Autopap 5-20 cm H2O, Heat Humidity, suitable mask, [employer] supplies, opt Chinstrap, G47.33. Patient not taking: Reported on 08/22/2023 empagliflozin (JARDIANCE) 10 mg tablet Take 1 tablet by mouth daily with breakfast. insulin glargine 100 unit/mL (3 mL) Inject 56 Units subcutaneously two times a day. or as directed insulin lispro (HUMALOG KWIKPEN INSULIN) 100 unit/mL Inject 15 Units subcutaneously three times a day before meals. Plus sliding scale (1 unit for every 50 pts >150 pts). insulin needles, DISPOSABLE, (BD INSULIN PEN NEEDLE UF) 31 gauge x 5/16 Use to inject insulin 4 times daily as directed. LYBALVI 10-10 mg tablet Take 1 tablet by mouth daily at bedtime. metFORMIN (GLUCOPHAGE) 500 mg tablet Take 2 tablets by mouth two times a day with meals. omeprazole (PRILOSEC) 40 mg capsule Take 1 capsule by mouth two times a day. QUEtiapine (SEROQUEL) 50 mg tablet Take 1 tablet by mouth daily at bedtime. rosuvastatin (CRESTOR) 40 mg tablet Take 1 tablet by mouth once daily. sertraline (ZOLOFT) 100 mg tablet Take 1 tablet by mouth once daily. Exam: There were no vitals taken for this visit. Last 3 Encounter BP Readings: Date: BP: 09/07/2024 130/82 09/01/2024 122/88 08/24/2024 144/88 Wt: 118 kg (260 lb 2.3 oz) BMI: 31.67 kg/(m^2) LABS: Reviewed Lab Results Component Value Date HBA1C 11.8 08/24/2024 HBA1C 10.6 07/17/2023 HBA1C 6.8 02/12/2023 HBA1C 12.7 09/19/2020 HBA1C 10.4 08/03/2019 HBA1C 12.0 01/19/2019 HBA1C 10.0 10/20/2018 CMP: Glucose 469 08/24/2024 BUN 19 08/24/2024 Creatinine, Whole Blood (iSTAT) 0.77 08/24/2024 Sodium 130 08/24/2024 Potassium 4.2 08/24/2024 Chloride 96 08/24/2024 CO2 21 08/24/2024 Protein, Total 7.5 08/24/2024 Albumin 4.4 08/24/2024 Calcium 10.1 08/24/2024 Alkaline Phosphatase 147 08/24/2024 Bilirubin, Total 0.4 08/24/2024 AST 15 08/24/2024 ALT 31 08/24/2024 eGFR 113 Lab Results Component Value Date CHOL 278 08/24/2024 CHOL 542 09/19/2020 LDL 08/24/2024 Comment: Unable to calculate due to increased Triglycerides. See LDL-Chol, Direct. LDL 07/17/2023 Comment: Unable to calculate due to increased Triglycerides. A Direct LDL Cholesterol measurement will not be performed. If clinically indicated, a fasting Basic Lipid Panel (LIPB) may be ordered. LDL 09/19/2020 Unable to calculate due to increased Triglycerides. See LDL-Chol, Direct. HDL 26 08/24/2024 HDL 12 09/19/2020 TG 1,384 08/24/2024 TG 4,520 09/19/2020 The 10-year ASCVD risk score (Tom GOFF, et al., 2019) is: 35% Values used to calculate the score: Age: 44 years Sex: Male Is Non- : No Diabetic: Yes Tobacco smoker: Yes Systolic Blood Pressure: 130 mmHg Is BP treated: No HDL Cholesterol: 26 mg/dL Total Cholesterol: 278 mg/dL Albumin/Creat Ratio (mg/g) Date Value 07/17/2023 29 PHARMACOTHERAPY ASSESSMENT/PLAN: 1. Uncontrolled type 2 diabetes mellitus with hyperglycemia (HCC) - ICD9: 250.02, ICD10: E11.65 A1c goal < 7%; uncontrolled (last A1c 11.8%); TIR not at goal; has had a couple of low readings due to taking Humalog and skipping meal; reported adherence with medications; psych med has increased appetite and Bgs --> addressing with provider tomorrow and hopeful for medication change; will increase mealtime insulin and f/up in 1 mo; will consider increasing Jardiance depending on upcoming labs INCREASE base dose of Humalog to 15 units (new regimen is 15 units + SSI TIDAC) Counseled to take with meals and to skip shot if skips a meal Continue other medications Get labs prior to next visit F/up with psychiatry regarding medication Health Maintenance - Diabetes Topic Date Due Pneumococcal Vaccine (2 of 2 - PCV) 11/28/2010 Diabetic Foot Exam 05/09/2023 Dilated Retinal Exam 08/24/2023 Urine Albumin:Creatinine Ratio 07/17/2024 HbA1C 11/24/2024 Follow-up Patient is not scheduled to see PCP team. Patient to have f/up with PharmD team on 01/06. Patient verbalized understanding of instructions. Kye Meade PharmD, [facility] Primary Care Clinical Pharmacist Time spent: 24 mins documented in this encounter [facility] 12-09-2024 Note HNO ID: [id number] Author: KYE MEADE RPh Service: ? Author Type: Pharmacist Type: Progress Notes Filed: 12/09/2024 13:59 Note Text: Primary Care Pharmacy Visit CC (Reason for Consult): Diabetes (E11.65) Uncontrolled type 2 diabetes mellitus with hyperglycemia (HCC) (primary encounter diagnosis) Goal: A1c < 7% Last Collaborating Provider Visit: 09/07/24 Denver Hollingsworth is a 44 year old male presenting for follow up visit telephone call. Patient consents to pharmacy collaborative practice agreement. Interim Events: 08/24: went to urgent care for lightheadedness, dizziness, anxiety, had stopped all meds for 6 weeks; POC glucose was 548 mg/dL so he went to ER 09/01: PCP restarted sertraline, quetiapine; ordered short-term clonazepam; referred to behavioral health; metformin and long-acting insulin restarted, pt referred to pharmacy 09/07: initial PharmD visit; meds continued since hyperglycemia sx improved and no SMBG to review; rosuvastatin started; CGM ordered; dietary mods encouraged 09/07: PCP adjusted psych meds 09/14: pt requested restarting mealtime insulin, so it was restarted 09/16: Jardiance started 10/28: insulins increased; advised to discuss olanzapine with psychiatrist since appetite and Bgs had increased HPI: Hasn't seen psychiatry yet to discuss new medication increasing appetite. Has an appt tomorrow and plans to discuss if can have a med change. Reports adherence to all medications. No issues with Jardiance. Current DM Medications: Metformin 500mg tabs - 1000mg BID Empagliflozin (Jardiance) 10mg daily Insulin glargine (Lantus) 56 units BID Insulin lispro (Humalog) 15 units TIDAC + SSI (using 12 units base + SSI; usually taking 16 units with meals; getting 2-3 shots/day - doesn't eat breakfast so skips shot, taking full dose with lunch and dinner and will take a full dose with evening snack if has a high-carb dinner, otherwise will skip) Past DM medications: Jardiance - thinks it worked but cost was too high Ozempic - reports he never tried, was on back order Trulicity - gastroparesis CGM Data Had a low in the 60s last Saturday - took insulin shot but then didn't eat dinner; treated with cereal Preventative Medications: On MADDI/ARB: No On Statin: Yes DIET/EXERCISE/SOCIAL Hx: No changes from last month I just eat constantly since starting psych medication MEDICATIONS: Pill bottles are not present. Adherence: denies missed doses. Pharmacy: [facility] [address] [place] [phone] [facility] [phone] Rx coverage: Payor: [employer] MEDICAID / Plan: Score The Board MEDICA[place] / Product Type: Medicaid / Medications affordable? Yes Diabetes Supplies: Yes Organization system: ACTIVE PROBLEM LIST Attention Deficit Disorder Uncontrolled Type 2 Diabetes Mellitus With Hyperglycemia (Hcc) Essential Hypertension Beryl (Obstructive Sleep Apnea) Cavus Deformity of Foot, Acquired Cervical Spine Pain Anxiety and Depression Mixed Hyperlipidemia Spinal Stenosis, Lumbar Region, Without Neurogenic Claudication Right Testicular Pain Tobacco Use Gastroesophageal Reflux Disease With Esophagitis Bipolar Disorder (Hcc) Substance Abuse (Hcc) Obesity (Bmi 30.0-34.9) Contusion of Unspecified Back Wall of Thorax, Initial Encounter Acute Lumbosacral Myofascial Strain Back Contusion Chronic Back Pain Bronchitis Cervical Strain Cocaine Dependence With Intoxication (Hcc) Gallstone Pancreatitis (Hcc) Gastroesophageal Reflux Disease Hyperosmolar Non-Ketotic State in Patient With Type 2 Diabetes Mellitus (Hcc) Injury of Head Laceration of Leg, Right Orchitis and Epididymitis Ptsd (Post-Traumatic Stress Disorder) Viral Infection Belching Change in Bowel Habits Early Satiety History of Cocaine Use Nausea and Vomiting Gastroparesis Due to Secondary Diabetes (Hcc) Precordial Pain Sensorineural Hearing Loss (Snhl) of Both Ears Thoracolumbar Back Pain Ddd (Degenerative Disc Disease), Thoracolumbar 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 of hyperactivity diagnosed in childhood Back pain 02/12/2012 Bile acid esophageal reflux 11/14/2022 Bipolar disorder (HCC) Chronic post-traumatic headache Closed fracture of dorsal (thoracic) vertebra without mention of spinal cord injury 04/03/2012 Corns and callosities 12/05/2009 Depressive disorder, not elsewhere classified 06/10/2012 DIABETES MELLITUS TYPE II-UNCOMPL 08/30/2008 Dysmetabolic syndrome X 07/21/2008 Gastroesophageal reflux disease with esophagitis Hydronephrosis 11/13/2022 Mild right Nonspecific abnormal results of liver function study 04/06/2005 Ferritin 225, HBsAg and Hep C negative in 10-30 /S Fatty Liver BERYL (obstructive sleep apnea) DME [facility] Res[facility] Pain in joint, lower leg 06/05/2012 Right testicular pain 09/15/2021 Substance abuse (HCC) Toba (more content not included)... [facility] 10-28-2024 History of Present illness Narrative Images from the original note were not included. Primary Care Pharmacy Visit CC (Reason for Consult): Diabetes (E11.65) Uncontrolled type 2 diabetes mellitus with hyperglycemia (HCC) (primary encounter diagnosis) Goal: A1c < 7% Last Collaborating Provider Visit: 09/07/24 Denver Hollingsworth is a 44 year old male presenting for follow up visit telephone call. Patient consents to pharmacy collaborative practice agreement. Interim Events: 08/24: went to urgent care for lightheadedness, dizziness, anxiety, had stopped all meds for 6 weeks; POC glucose was 548 mg/dL so he went to ER 09/01: PCP restarted sertraline, quetiapine; ordered short-term clonazepam; referred to behavioral health; metformin and long-acting insulin restarted, pt referred to pharmacy 09/07: initial PharmD visit; meds continued since hyperglycemia sx improved and no SMBG to review; rosuvastatin started; CGM ordered; dietary mods encouraged 09/07: PCP adjusted psych meds 09/14: pt requested restarting mealtime insulin, so it was restarted 09/16: Jardiance started HPI: Did start Jardiance, does think he needs a stronger dose. Denies any UTI or yeast infections. Not peeing any more than normal. Affordable. Has new medicine from psychiatrist, makes him very tired (Lybalvi). Started about 1 month ago. Over the past month he feels like he has been eating non-stop. Seeing psych tomorrow. Feels like mouth is more dry. Has been having some occasional dizzy spells since starting med, usually while walking and when standing up too fast. Denies ever falling. Needs to hold onto something when stands up. Having lots of dry mouth. Self-increased Lantus about 10 days ago to 50 units BID. Has had a few lows since then. Current DM Medications: Metformin 500mg tabs - 1000mg BID Empagliflozin (Jardiance) 10mg daily Insulin glargine (Lantus) 50 units daily (self-increased to 50 units BID ~10 days ago because sugars were high) Insulin lispro (Humalog) 12 units TIDAC (taking 12 units + SSI; usually taking 15-18 units with meals, usually twice daily since doesn't eat breakfast) Past DM medications: Jardiance - thinks it worked but cost was too high Ozempic - reports he never tried, was on back order Trulicity - gastroparesis CGM Data Preventative Medications: On MADDI/ARB: No On Statin: Yes ROS: Patient denies CP, SOB, GAMBINO, blurred vision, dizziness or lightheadedness Patient denies symptoms of hypoglycemia (sweating, anxiety, palpitations, hunger, and tremor) Patient reports symptoms of hyperglycemia (polydipsia) Patient reports potential medication adverse effects DIET/EXERCISE/SOCIAL Hx: Has had 2.5 gallons of ice cream over the past 1.5 weeks Sometimes will crave sweet stuff when my addiction kicks in Eating a banana daily, eating more fresh fruit Eats a lot of chicken (breaded chicken patties in air fryer) MEDICATIONS: Pill bottles are not present. Adherence: denies missed doses. Pharmacy: [facility] [address] [place] [id number] Parmj[address] Gomez - [phone] Rx coverage: Payor: [employer] MEDICAID / Plan: Score [employer] Board MED[place] / Product Type: Medicaid / Medications affordable? Yes Diabetes Supplies: Yes Organization system: ACTIVE PROBLEM LIST Attention Deficit Disorder Uncontrolled Type 2 Diabetes Mellitus With Hyperglycemia (Hcc) Essential Hypertension Beryl (Obstructive Sleep Apnea) Cavus Deformity of Foot, Acquired Cervical Spine Pain Anxiety and Depression Mixed Hyperlipidemia Spinal Stenosis, Lumbar Region, Without Neurogenic Claudication Right Testicular Pain Tobacco Use Gastroesophageal Reflux Disease With Esophagitis Bipolar Disorder (Hcc) Substance Abuse (Hcc) Obesity (Bmi 30.0-34.9) Contusion of Unspecified Back Wall of Thorax, Initial Encounter Acute Lumbosacral Myofascial Strain Back Contusion Chronic Back Pain Bronchitis Cervical Strain Cocaine Dependence With Intoxication (Hcc) Gallstone Pancreatitis (Hcc) Gastroesophageal Reflux Disease Hyperosmolar Non-Ketotic State in Patient With Type 2 Diabetes Mellitus (Hcc) Injury of Head Laceration of Leg, Right Orchitis and Epididymitis Ptsd (Post-Traumatic Stress Disorder) Viral Infection Belching Change in Bowel Habits Early Satiety History of Cocaine Use Nausea and Vomiting Gastroparesis Due to Secondary Diabetes (Hcc) Precordial Pain Sensorineural Hearing Loss (Snhl) of Both Ears Thoracolumbar Back Pain Ddd (Degenerative Disc Disease), Thoracolumbar 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 of hyperactivity diagnosed in childhood Back pain 02/12/2012 Bile acid esophageal reflux 11/14/2022 Bipolar disorder (HCC) Chronic post-traumatic headache Closed fracture of dorsal (thoracic) vertebra without mention of spinal cord injury 04/03/2012 Corns and callosities 12/05/2009 Depressive disorder, not elsewhere classified 06/10/2012 DIABETES MELLITUS TYPE II-UNCOMPL 08/30/2008 Dysmetabolic syndrome X 07/21/2008 Gastroesophageal reflux disease with esophagitis Hydronephrosis 11/13/2022 Mild right Nonspecific abnormal results of liver function study 04/06/2005 Ferritin 225, HBsAg and Hep C negative in 5- U/S Fatty Liver BERYL (obstructive sleep apnea) DME [facility] Res[facility] Pain in joint, lower leg 06/05/2012 Right testicular pain 09/15/2021 Substance abuse (HCC) Tobacco use Unspecified essential hypertension 08/30/2008 Past medical history reviewed. ALLERGIES Allergen Reactions Hydrocodone Bitartr* GI Upset Trulicity [Dulaglut* Contraindication-Medical Surgical GASTROPARESIS, cannot use GLP1 Fibrate Anti-Lipide* Myalgia Medication List Medication Directions Comments Action/Plan Blood-Glucose Sensor (FREESTYLE JOSE 3 PLUS SENSOR) allyson Apply new sensor every fifteen (15) days to upper arm. clonazePAM (KLONOPIN) 1 mg tablet Take 1 tablet by mouth three times a day as needed for anxiety for up to 30 days. CPAP Autopap 5-20 cm H2O, Heat Humidity, suitable mask, [employer], opt Chinstrap, G47.33. Patient not taking: Reported on 08/22/2023 empagliflozin (JARDIANCE) 10 mg tablet Take 1 tablet by mouth daily with breakfast. insulin glargine 100 unit/mL (3 mL) Inject 50 Units subcutaneously daily at bedtime. or as directed insulin lispro (HUMALOG KWIKPEN INSULIN) 100 unit/mL Inject 12 Units subcutaneously three times a day before meals. insulin needles, DISPOSABLE, (BD INSULIN PEN NEEDLE UF) 31 gauge x 5/16 Use to inject insulin 4 times daily as directed. metFORMIN (GLUCOPHAGE) 500 mg tablet Take 2 tablets by mouth two times a day with meals. omeprazole (PRILOSEC) 40 mg capsule Take 1 capsule by mouth two times a day. QUEtiapine (SEROQUEL) 50 mg tablet Take 1 tablet by mouth daily at bedtime. rosuvastatin (CRESTOR) 40 mg tablet Take 1 tablet by mouth once daily. sertraline (ZOLOFT) 100 mg tablet Take 1 tablet by mouth once daily. Rx meds not listed in EPIC: Lybalvi (olanzapine/samidorphan) 10-10mg daily, per psychiatry OTCs: none Herbals: none Exam: There were no vitals taken for this visit. Last 3 Encounter BP Readings: Date: BP: 09/07/2024 130/82 09/01/2024 122/88 08/24/2024 144/88 Wt: 118 kg (260 lb 2.3 oz) BMI: 31.67 kg/(m^2) LABS: Reviewed Lab Results Component Value Date HBA1C 11.8 08/24/2024 HBA1C 10.6 07/17/2023 HBA1C 6.8 02/12/2023 HBA1C 12.7 09/19/2020 HBA1C 10.4 08/03/2019 HBA1C 12.0 01/19/2019 HBA1C 10.0 10/20/2018 CMP: Glucose 469 08/24/2024 BUN 19 08/24/2024 Creatinine, Whole Blood (iSTAT) 0.77 08/24/2024 Sodium 130 08/24/2024 Potassium 4.2 08/24/2024 Chloride 96 08/24/2024 CO2 21 08/24/2024 Protein, Total 7.5 08/24/2024 Albumin 4.4 08/24/2024 Calcium 10.1 08/24/2024 Alkaline Phosphatase 147 08/24/2024 Bilirubin, Total 0.4 08/24/2024 AST 15 08/24/2024 ALT 31 08/24/2024 No results found for: GFR Estimated Creatinine Clearance: 171.9 mL/min (based on SCr of 0.77 mg/dL). Lab Results Component Value Date CHOL 278 08/24/2024 CHOL 542 09/19/2020 LDL 08/24/2024 Comment: Unable to calculate due to increased Triglycerides. See LDL-Chol, Direct. LDL 07/17/2023 Comment: Unable to calculate due to increased Triglycerides. A Direct LDL Cholesterol measurement will not be performed. If clinically indicated, a fasting Basic Lipid Panel (LIPB) may be ordered. LDL 09/19/2020 Unable to calculate due to increased Triglycerides. See LDL-Chol, Direct. HDL 26 08/24/2024 HDL 12 09/19/2020 TG 1,384 08/24/2024 TG 4,520 09/19/2020 The 10-year ASCVD risk score (Tom GOFF, et al., 2019) is: 35% Values used to calculate the score: Age: 44 years Sex: Male Is Non- : No Diabetic: Yes Tobacco smoker: Yes Systolic Blood Pressure: 130 mmHg Is BP treated: No HDL Cholesterol: 26 mg/dL Total Cholesterol: 278 mg/dL Albumin/Creat Ratio (mg/g) Date Value 07/17/2023 29 PHARMACOTHERAPY ASSESSMENT/PLAN: 1. Uncontrolled type 2 diabetes mellitus with hyperglycemia (HCC) - ICD9: 250.02, ICD10: E11.65 A1c goal < 7%; uncontrolled (last A1c 11.8%); TIR only slightly improved despite starting Jardiance and pt doubling his basal insulin --> possible pt could be having higher Bgs as a result of starting Lybalvi (olanzapine) which has increased appetite and can also cause hyperglycemia); increased dry mouth, though timing aligns with olanzapine rather than hyperglycemia; tolerating Jardiance well but will not increase dose until gets repeat BMP will increase insulins today and pt to discuss olanzapine ADRs with psychiatrist INCREASE Lantus to 56 units twice daily (I confirmed with pt 3 different times that he was in fact taking 50 units TWICE daily) INCREASE Humalog base dose to 15 units with meals, continue with SSI Continue other medications Pt to discuss olanzapine ADRs at upcoming visit tomorrow Encouraged cutting back on ice cream and bananas, eat more protein and fiber - HEMOGLOBIN A1C - ALBUMIN/CREATININE RATIO, URINE Health Maintenance - Diabetes Topic Date Due Pneumococcal Vaccine (2 of 2 - PCV) 11/28/2010 Diabetic Foot Exam 05/09/2023 Dilated Retinal Exam 08/24/2023 Urine Albumin:Creatinine Ratio 07/17/2024 Follow-up Patient is not scheduled to see PCP team. Patient to have f/up with PharmD team on 12/09. Patient verbalized understanding of instructions. Kye Meade PharmD, BCPS Primary Care Clinical Pharmacist Time spent: 27 mins documented in this encounter [facility] 10-28-2024 Note HNO ID: [id number] Author: KYE MEADE RPh Service: ? Author Type: Pharmacist Type: Progress Notes Filed: 10/28/2024 13:56 Note Text: Primary Care Pharmacy Visit CC (Reason for Consult): Diabetes (E11.65) Uncontrolled type 2 diabetes mellitus with hyperglycemia (HCC) (primary encounter diagnosis) Goal: A1c < 7% Last Collaborating Provider Visit: 09/07/24 Denver Hollingsworth is a 44 year old male presenting for follow up visit telephone call. Patient consents to pharmacy collaborative practice agreement. Interim Events: 08/24: went to urgent care for lightheadedness, dizziness, anxiety, had stopped all meds for 6 weeks; POC glucose was 548 mg/dL so he went to ER 09/01: PCP restarted sertraline, quetiapine; ordered short-term clonazepam; referred to behavioral health; metformin and long-acting insulin restarted, pt referred to pharmacy 09/07: initial PharmD visit; meds continued since hyperglycemia sx improved and no SMBG to review; rosuvastatin started; CGM ordered; dietary mods encouraged 09/07: PCP adjusted psych meds 09/14: pt requested restarting mealtime insulin, so it was restarted 09/16: Jardiance started HPI: Did start Jardiance, does think he needs a stronger dose. Denies any UTI or yeast infections. Not peeing any more than normal. Affordable. Has new medicine from psychiatrist, makes him very tired (Lybalvi). Started about 1 month ago. Over the past month he feels like he has been eating non-stop. Seeing psych tomorrow. Feels like mouth is more dry. Has been having some occasional dizzy spells since starting med, usually while walking and when standing up too fast. Denies ever falling. Needs to hold onto something when stands up. Having lots of dry mouth. Self-increased Lantus about 10 days ago to 50 units BID. Has had a few lows since then. Current DM Medications: Metformin 500mg tabs - 1000mg BID Empagliflozin (Jardiance) 10mg daily Insulin glargine (Lantus) 50 units daily (self-increased to 50 units BID ~10 days ago because sugars were high) Insulin lispro (Humalog) 12 units TIDAC (taking 12 units + SSI; usually taking 15-18 units with meals, usually twice daily since doesn't eat breakfast) Past DM medications: Jardiance - thinks it worked but cost was too high Ozempic - reports he never tried, was on back order Trulicity - gastroparesis CGM Data Preventative Medications: On MADDI/ARB: No On Statin: Yes ROS: Patient denies CP, SOB, GAMBINO, blurred vision, dizziness or lightheadedness Patient denies symptoms of hypoglycemia (sweating, anxiety, palpitations, hunger, and tremor) Patient reports symptoms of hyperglycemia (polydipsia) Patient reports potential medication adverse effects DIET/EXERCISE/SOCIAL Hx: Has had 2.5 gallons of ice cream over the past 1.5 weeks Sometimes will crave sweet stuff when my addiction kicks in Eating a banana daily, eating more fresh fruit Eats a lot of chicken (breaded chicken patties in air fryer) MEDICATIONS: Pill bottles are not present. Adherence: denies missed doses. Pharmacy: [facility] [address] [place] [phone] [address] [facility] [phone] Rx coverage: Payor: [employer] / Plan: [employer] MEDICA[employer] [facility] / Product Type: Medicaid / Medications affordable? Yes Diabetes Supplies: Yes Organization system: ACTIVE PROBLEM LIST Attention Deficit Disorder Uncontrolled Type 2 Diabetes Mellitus With Hyperglycemia (Hcc) Essential Hypertension Beryl (Obstructive Sleep Apnea) Cavus Deformity of Foot, Acquired Cervical Spine Pain Anxiety and Depression Mixed Hyperlipidemia Spinal Stenosis, Lumbar Region, Without Neurogenic Claudication Right Testicular Pain Tobacco Use Gastroesophageal Reflux Disease With Esophagitis Bipolar Disorder (Hcc) Substance Abuse (Hcc) Obesity (Bmi 30.0-34.9) Contusion of Unspecified Back Wall of Thorax, Initial Encounter Acute Lumbosacral Myofascial Strain Back Contusion Chronic Back Pain Bronchitis Cervical Strain Cocaine Dependence With Intoxication (Hcc) Gallstone Pancreatitis (Hcc) Gastroesophageal Reflux Disease Hyperosmolar Non-Ketotic State in Patient With Type 2 Diabetes Mellitus (Hcc) Injury of Head Laceration of Leg, Right Orchitis and Epididymitis Ptsd (Post-Traumatic Stress Disorder) Viral Infection Belching Change in Bowel Habits Early Satiety History of Cocaine Use Nausea and Vomiting Gastroparesis Due to Secondary Diabetes (Hcc) Precordial Pain Sensorineural Hearing Loss (Snhl) of Both Ears Thoracolumbar Back Pain Ddd (Degenerative Disc Disease), Thoracolumbar 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 of hyperactivity diagnosed in childhood Back pain 02/12/2012 Bile acid esophageal reflux 11/14/2022 Bipolar disorder (HCC) Chronic post-traumatic headache Closed fracture of dorsal (thoracic) vertebra without mention of s (more content not included)... [facility] 09-23-2024 Telephone encounter Note Behavioral Health Social Work Progress Note Patient identified for SW from: PCP Reason for referral: BH Resources Behavioral Health Resources: Psychiatry med management [facility] encounter type: Telephone Encounter, Letter Attempts to Outreach: 2 attempts Referral made: Psychology - External Psychology-External referral type: Therapy Final Disposition: Resources given Patient Discharged?: Yes [facility] attempted to reach patient again by phone, goes straight to voicemail. Recording indicates that voicemail is not yet set up. Patient also does not have MyChart. [facility] sending patient a letter with resources. CAROLINA Cooper September 23, 2024 [facility] Work Phone: 09-23-2024 Miscellaneous Notes Behavioral Health Social Work Progress Note Patient identified for [facility] from: PCP Reason for referral: [facility] Behavioral Health Resources: Psychiatry med management [facility] encounter type: Telephone Encounter, Letter Attempts to Outreach: 2 attempts Referral made: Psychology - External Psychology-External referral type: Therapy Final Disposition: Resources given Patient Discharged?: Yes [facility] attempted to reach patient again by phone, goes straight to voicemail. Recording indicates that voicemail is not yet set up. Patient also does not have MyChart. [facility] sending patient a letter with resources. CAROLINA Cooper September 23, 2024 documented in this encounter [facility] 09-17-2024 Telephone encounter Note Called patient on both numbers, no answer and voicemail not set up. Also not on my MyChart. Will try phone call again another day before mailing out letter. [facility] 09-17-2024 Miscellaneous Notes Called patient on both numbers, no answer and voicemail not set up. Also not on my MyChart. Will try phone call again another day before mailing out letter. Routing to clerical to assist with an appointment with Dr. Nguyễn to discuss alternative options. Received voicemail 09-17-24 at 1:23 PM. Call back number [phone] Patient stating he needs appointment with Dr. Nguyễn to find out what he can do with my back. The injections didn't work. Forwarding to Dr. Nguyễn's clinical staff for review. documented in this encounter [facility] 09-17-2024 Telephone encounter Note Routing to clerical to assist with an appointment with Dr. Nguyễn to discuss alternative options. [facility] 09-17-2024 Telephone encounter Note Received voicemail 09-17-24 at 1:23 PM. Call back number [phone] Patient stating he needs appointment with Dr. Nguyễn to find out what he can do with my back. The injections didn't work. Forwarding to Dr. Nguyễn's clinical staff for review. [facility] 09-16-2024 History of Present illness Narrative Images from the original note were not included. Primary Care Pharmacy Visit CC (Reason for Consult): Diabetes (E11.65) Uncontrolled type 2 diabetes mellitus with hyperglycemia (HCC) (primary encounter diagnosis) Goal: A1c < 7% Last Collaborating Provider Visit: 09/07/24 Denver Hollingsworth is a 44 year old male presenting for follow up visit telephone call. Patient consents to pharmacy collaborative practice agreement. Interim Events: 08/24: went to urgent care for lightheadedness, dizziness, anxiety, had stopped all meds for 6 weeks; POC glucose was 548 mg/dL so he went to ER 09/01: PCP restarted sertraline, quetiapine; ordered short-term clonazepam; referred to behavioral health; metformin and long-acting insulin restarted, pt referred to pharmacy 09/07: initial PharmD visit; meds continued since hyperglycemia sx improved and no SMBG to review; rosuvastatin started; CGM ordered; dietary mods encouraged 09/07: PCP adjusted psych meds : pt requested restarting mealtime insulin, so it was restarted HPI: Confirmed he did get CGM and mealtime insulin. Says sugars are better, mental health is getting better. Really likes the CGM. Has learned that soda and jelly beans really increase blood sugar. Current DM Medications: Metformin 500mg tabs - 1000mg BID Insulin glargine (Lantus) 50 units daily Insulin lispro (Humalog) 12 units TIDAC Past DM medications: Jardiance - thinks it worked but cost was too high Ozempic - reports he never tried, was on back order Trulicity - gastroparesis CGM Data Preventative Medications: On MADDI/ARB: No On Statin: Yes ROS: Patient denies CP, SOB, GAMBINO, blurred vision, dizziness or lightheadedness Patient denies symptoms of hypoglycemia (sweating, anxiety, palpitations, hunger, and tremor) Patient denies symptoms of hyperglycemia (polyuria, polydipsia, polyphagia) Patient denies potential medication adverse effects DIET/EXERCISE/SOCIAL Hx: No changes 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 Adherence: denies missed doses. Pharmacy: [facility] [address] [place] [id number] - [address] [facility] [phone] Rx coverage: Payor: MEDICAID [place] / Plan: [place] MED[place] / Product Type: Medicaid / Medications affordable? Yes Diabetes Supplies: Yes Organization system: ACTIVE PROBLEM LIST Attention Deficit Disorder Uncontrolled Type 2 Diabetes Mellitus With Hyperglycemia (Hcc) Essential Hypertension Beryl (Obstructive Sleep Apnea) Cavus Deformity of Foot, Acquired Cervical Spine Pain Anxiety and Depression Mixed Hyperlipidemia Spinal Stenosis, Lumbar Region, Without Neurogenic Claudication Right Testicular Pain Tobacco Use Gastroesophageal Reflux Disease With Esophagitis Bipolar Disorder (Hcc) Substance Abuse (Hcc) Obesity (Bmi 30.0-34.9) Contusion of Unspecified Back Wall of Thorax, Initial Encounter Acute Lumbosacral Myofascial Strain Back Contusion Chronic Back Pain Bronchitis Cervical Strain Cocaine Dependence With Intoxication (Hcc) Gallstone Pancreatitis Gastroesophageal Reflux Disease Hyperosmolar Non-Ketotic State in Patient With Type 2 Diabetes Mellitus (Hcc) Injury of Head Laceration of Leg, Right Orchitis and Epididymitis Ptsd (Post-Traumatic Stress Disorder) Viral Infection Belching Change in Bowel Habits Early Satiety History of Cocaine Use Nausea and Vomiting Gastroparesis Due to Secondary Diabetes (Hcc) Precordial Pain Sensorineural Hearing Loss (Snhl) of Both Ears Thoracolumbar Back Pain Ddd (Degenerative Disc Disease), Thoracolumbar 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 of hyperactivity diagnosed in childhood Back pain 02/12/2012 Bile acid esophageal reflux 11/14/2022 Bipolar disorder (HCC) Chronic post-traumatic headache Closed fracture of dorsal (thoracic) vertebra without mention of spinal cord injury 04/03/2012 Corns and callosities 12/05/2009 Depressive disorder, not elsewhere classified 06/10/2012 DIABETES MELLITUS TYPE II-UNCOMPL 08/30/2008 Dysmetabolic syndrome X 07/21/2008 Gastroesophageal reflux disease with esophagitis Hydronephrosis 11/13/2022 Mild right Nonspecific abnormal results of liver function study 04/06/2005 Ferritin 225, HBsAg and Hep C negative in 5-09 U/S Fatty Liver BERYL (obstructive sleep apnea) DME [facility] Respiratory Pain in joint, lower leg 06/05/2012 Right testicular pain 09/15/2021 Substance abuse (HCC) Tobacco use Unspecified essential hypertension 08/30/2008 Past medical history reviewed. ALLERGIES Allergen Reactions Hydrocodone Bitartr* GI Upset Trulicity [Dulaglut* Contraindication-Medical Surgical GASTROPARESIS, cannot use GLP1 Fibrate Anti-Lipide* Myalgia Medication List Medication Directions Comments Action/Plan Discontinued: 09/07/2024 11:54 AM Blood-Glucose Sensor (FREESTYLE JOSE 3 PLUS SENSOR) allyson Apply new sensor every fifteen (15) days to upper arm. Discontinued: 09/07/2024 11:54 AM Discontinued: 09/07/2024 3:03 PM clonazePAM (KLONOPIN) 1 mg tablet Take 1 tablet by mouth three times a day as needed for anxiety for up to 30 days. CPAP Autopap 5-20 cm H2O, Heat Humidity, suitable mask, [employer], opt Blake, G47.33. Patient not taking: Reported on 08/22/2023 insulin glargine 100 unit/mL (3 mL) Inject 50 Units subcutaneously daily at bedtime. or as directed insulin lispro (HUMALOG KWIKPEN INSULIN) 100 unit/mL Inject 12 Units subcutaneously three times a day before meals. Discontinued: 09/07/2024 11:54 AM Discontinued: 09/07/2024 11:57 AM Discontinued: 09/14/2024 12:59 PM insulin needles, DISPOSABLE, (BD INSULIN PEN NEEDLE UF) 31 gauge x 5/16 Use to inject insulin 4 times daily as directed. Discontinued: 09/07/2024 11:55 AM Discontinued: 09/07/2024 11:55 AM Discontinued: 09/07/2024 11:55 AM metFORMIN (GLUCOPHAGE) 500 mg tablet Take 2 tablets by mouth two times a day with meals. Discontinued: 09/07/2024 11:56 AM omeprazole (PRILOSEC) 40 mg capsule Take 1 capsule by mouth two times a day. Discontinued: 09/07/2024 11:56 AM Discontinued: 09/11/2024 12:39 PM Discontinued: 09/07/2024 3:03 PM QUEtiapine (SEROQUEL) 50 mg tablet Take 1 tablet by mouth daily at bedtime. rosuvastatin (CRESTOR) 40 mg tablet Take 1 tablet by mouth once daily. sertraline (ZOLOFT) 100 mg tablet Take 1 tablet by mouth once daily. Discontinued: 09/07/2024 3:03 PM Discontinued: 09/07/2024 11:56 AM Exam: There were no vitals taken for this visit. Last 3 Encounter BP Readings: Date: BP: 09/07/2024 130/82 09/01/2024 122/88 08/24/2024 144/88 Wt: 118 kg (260 lb 2.3 oz) BMI: 31.67 kg/(m^2) LABS: Reviewed Lab Results Component Value Date HBA1C 11.8 08/24/2024 HBA1C 10.6 07/17/2023 HBA1C 6.8 02/12/2023 HBA1C 12.7 09/19/2020 HBA1C 10.4 08/03/2019 HBA1C 12.0 01/19/2019 HBA1C 10.0 10/20/2018 CMP: Glucose 469 08/24/2024 BUN 19 08/24/2024 Creatinine, Whole Blood (iSTAT) 0.77 08/24/2024 Sodium 130 08/24/2024 Potassium 4.2 08/24/2024 Chloride 96 08/24/2024 CO2 21 08/24/2024 Protein, Total 7.5 08/24/2024 Albumin 4.4 08/24/2024 Calcium 10.1 08/24/2024 Alkaline Phosphatase 147 08/24/2024 Bilirubin, Total 0.4 08/24/2024 AST 15 08/24/2024 ALT 31 08/24/2024 No results found for: GFR Estimated Creatinine Clearance: 171.9 mL/min (based on SCr of 0.77 mg/dL). Lab Results Component Value Date CHOL 278 08/24/2024 CHOL 542 09/19/2020 LDL 08/24/2024 Comment: Unable to calculate due to increased Triglycerides. See LDL-Chol, Direct. LDL 07/17/2023 Comment: Unable to calculate due to increased Triglycerides. A Direct LDL Cholesterol measurement will not be performed. If clinically indicated, a fasting Basic Lipid Panel (LIPB) may be ordered. LDL 09/19/2020 Unable to calculate due to increased Triglycerides. See LDL-Chol, Direct. HDL 26 08/24/2024 HDL 12 09/19/2020 TG 1,384 08/24/2024 TG 4,520 09/19/2020 The 10-year ASCVD risk score (Tom GOFF, et al., 2019) is: 35% Values used to calculate the score: Age: 44 years Sex: Male Is Non- : No Diabetic: Yes Tobacco smoker: Yes Systolic Blood Pressure: 130 mmHg Is BP treated: No HDL Cholesterol: 26 mg/dL Total Cholesterol: 278 mg/dL Albumin/Creat Ratio (mg/g) Date Value 07/17/2023 29 PHARMACOTHERAPY ASSESSMENT/PLAN: 1. Uncontrolled type 2 diabetes mellitus with hyperglycemia (HCC) - ICD9: 250.02, ICD10: E11.65 A1c goal < 7%; uncontrolled (last A1c 11.8%); TIR not at goal but seems improved compared to recent A1c; pt feeling better; no issues with lows; reports med adherence; desires weight loss - will start Jardiance to help offset insulin requirements; f/up in ~1 month INITIATE Jardiance 10mg daily Counseled on MOA, potential for dehydration, infection. Advised to stay hydrated, contact office if any s/sx of infection BMP in 1 mo prior to next visit CONTINUE other medications Reviewed s/sx of low BG and treatment - EMPAGLIFLOZIN 10 MG TABLET - BASIC METABOLIC PANEL Health Maintenance - Diabetes Topic Date Due Pneumococcal Vaccine (2 of 2 - PCV) 11/28/2010 Diabetic Foot Exam 05/09/2023 Dilated Retinal Exam 08/24/2023 Urine Albumin:Creatinine Ratio 07/17/2024 Follow-up Patient is scheduled to see PCP team on 09/29. Patient to have f/up with PharmD team on 10/28. Patient verbalized understanding of instructions. Kye Meade PharmD, [facility] Primary Care Clinical Pharmacist Time spent: 23 mins documented in this encounter [facility] 09-16-2024 Note HNO ID: [id number] Author: KYE MEADE RPh Service: ? Author Type: Pharmacist Type: Progress Notes Filed: 09/16/2024 13:59 Note Text: Primary Care Pharmacy Visit CC (Reason for Consult): Diabetes (E11.65) Uncontrolled type 2 diabetes mellitus with hyperglycemia (HCC) (primary encounter diagnosis) Goal: A1c < 7% Last Collaborating Provider Visit: 09/07/24 Denver Hollingsworth is a 44 year old male presenting for follow up visit telephone call. Patient consents to pharmacy collaborative practice agreement. Interim Events: 08/24: went to urgent care for lightheadedness, dizziness, anxiety, had stopped all meds for 6 weeks; POC glucose was 548 mg/dL so he went to ER 09/01: PCP restarted sertraline, quetiapine; ordered short-term clonazepam; referred to behavioral health; metformin and long-acting insulin restarted, pt referred to pharmacy 09/07: initial PharmD visit; meds continued since hyperglycemia sx improved and no SMBG to review; rosuvastatin started; CGM ordered; dietary mods encouraged 09/07: PCP adjusted psych meds : pt requested restarting mealtime insulin, so it was restarted HPI: Confirmed he did get CGM and mealtime insulin. Says sugars are better, mental health is getting better. Really likes the CGM. Has learned that soda and jelly beans really increase blood sugar. Current DM Medications: Metformin 500mg tabs - 1000mg BID Insulin glargine (Lantus) 50 units daily Insulin lispro (Humalog) 12 units TIDAC Past DM medications: Jardiance - thinks it worked but cost was too high Ozempic - reports he never tried, was on back order Trulicity - gastroparesis CGM Data Preventative Medications: On MADDI/ARB: No On Statin: Yes ROS: Patient denies CP, SOB, GAMBINO, blurred vision, dizziness or lightheadedness Patient denies symptoms of hypoglycemia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 Musculoskeletal: Cervical back: Neck supple. Skin: General: Skin is warm and dry. Capillary Refill: Capillary refill takes less than 2 seconds. Neurological: General: No focal deficit present. Mental Status: He is alert and oriented to person, place, and time. Mental status is at baseline. Psychiatric: Attention and Perception: Attention and perception normal. Mood and Affect: Mood and affect normal. Speech: Speech normal. Behavior: Behavior normal. Behavior is cooperative. Thought Content: Thought content normal. Cognition and Memory: Cognition and memory normal. Judgment: Judgment normal. ASSESSMENT/PLAN: 1. Bipolar disorder, current episode mixed, moderate (HCC) - ICD9: 296.62, ICD10: F31.62 (primary diagnosis) Mood improving, increase sertraline, decrease seroquel due to some side effects. Klonopin helpful but still having episodes of anxiety, restless. Dose adjusted. - SERTRALINE 100 MG TABLET - QUETIAPINE 25 MG TABLET - CLONAZEPAM 1 MG TABLET 2. Uncontrolled type 2 diabetes mellitus with hyperglycemia (HCC) - ICD9: 250.02, ICD10: E11.65 - Barriers to control: cost of medication and unstable living situation - Continue current medications - Counseled on healthy diet and regular exercise - Discussed need for and benefit of weight loss. BMI 31.67 kg/(m^2) - Get CGM as ordered by pharmD 3. Primary insomnia - ICD9: 307.42, ICD10: F51.01 Decrease Seroquel due to side effects, sleep is improved. Overall insomnia is stable now. - QUETIAPINE 25 MG TABLET 4. Essential hypertension - ICD9: 401.9, ICD10: I10 - Controlled - Recommend home blood pressure monitoring, to bring results to next visit - Encouraged sodium restriction, DASH or Mediterranean diet - Recommend regular aerobic exercise 5. Bile acid esophageal reflux - ICD9: 530.81, ICD10: K21.9 - Discussed lifestyle modifications including losing weight, limiting caffeine, no meals three hours before sleep, and head of bed elevation - Restart omeprazole due to chronic reflux worse since stopping the medication. - OMEPRAZOLE 40 MG CAPSULE,DELAYED RELEASE 6. Housing instability, housed, homelessness in past 12 months - ICD9: V60.89, ICD10: Z59.812 Portions of this note have been entered by ancillary staff. I have reviewed and when necessary edited, so that they are an adequate record of my encounter with this patient Please note that parts of this document were created using voice recognition software and therefore may contain grammatical errors. Patient verbalizes understanding of instructions from today's visit and in agreement with treatment plan. Questions answered. Agrees to call the office if questions, concerns of issues with acute symptoms not improving or if they worsen. See diagnoses and orders for additional plan(s). Allergies and medications were reviewed, list was updated, and refills given if needed. Past medical, surgical, social, and family history reviewed and updated as appropriate. Encouraged proper diet & exercise as well as compliance with taking medications. Age-appropriate health preventative measures were discussed. Return in about 3 weeks (around 09/28/2024) for Follow up on chronic conditions and medications.. Kaylee Vincent APRN-ZENOBIA documented in this encounter [facility] 09-07-2024 History of Present illness Narrative Primary Care Pharmacy Visit CC (Reason for Consult): Diabetes (E11.65) Uncontrolled type 2 diabetes mellitus with hyperglycemia (HCC) (primary encounter diagnosis) Goal: A1c < 7% Last Collaborating Provider Visit: 09/01/24 Denver Hollingsworth is a 44 year old male presenting for initial visit: This initial consult was conducted telephone call with the patient where the consult agreement was explained. The patient may decline or cancel the agreement at any time. After consideration, the patient consented to the pharmacy consult agreement and agreed to allow medications be collaboratively managed by a pharmacist. Interim Events: 08/24: went to urgent care for lightheadedness, dizziness, anxiety, had stopped all meds for 6 weeks; POC glucose was 548 mg/dL so he went to ER 09/01: PCP restarted sertraline, quetiapine; ordered short-term clonazepam; referred to behavioral health; metformin and long-acting insulin restarted, pt referred to pharmacy HPI: Reports he had bad depression which is why he stopped taking his meds about 6 weeks ago. Flushed all meds down toilet. Has really noticed an improvement in depression this past week since seeing POLYSOMNOGRAPHY TECHNICIAN and restarting psych meds and DM meds. Since restarting meds, not feeling as thirsty, not peeing as much, mood is somewhat better. No change in energy level. No low sugar sx. He and are , currently going through a divorce. Used to have Dexcom G7, sensors didn't stick to skin. Personal goals: trying to be the best he can be; not let mental health get out of hand; short fuse; DM killed his dad so he wants to control it, wants to take things seriously Not checking blood sugar. Refuses to do fingersticks. No gall bladder, can't digest nuts. Current DM Medications: Metformin 500mg tabs - 1000mg BID Pioglitazone 30mg daily (not taking) Insulin glargine (Lantus) 50 units daily Insulin lispro (Humalog) 12 units + SSI TIDAC (not taking) Past DM medications: Jardiance - thinks it worked but cost was too high Ozempic - reports he never tried, was on back order Trulicity - gastroparesis Preventative Medications: On MADDI/ARB: Yes On Statin: Yes ROS: Patient denies CP, SOB, GAMBINO, blurred vision, dizziness or lightheadedness Patient denies symptoms of hypoglycemia (sweating, anxiety, palpitations, hunger, and tremor) Patient denies symptoms of hyperglycemia (polyuria, polydipsia, polyphagia) Patient denies potential medication adverse effects DIET/EXERCISE/SOCIAL Hx: Usually eats 1 meal/day (supper) but snacks throughout the day Breakfast: usually skips food; coffee every morning (with half-half and Splenda) Dinner: ~4:30-5 PM; meat and potatoes, occasionally veggies (green beans and carrots) Snacks: potato chips (will go through 3-4 large bags/week) Beverages: water with sugar-free flavor pack; coffee in AM; will have a pop binge maybe once per month, will drink an entire 12 pack Exercise: none Tobacco: cigarettes, 1 ppd; if I quit smoking I probably wouldn't be safe to the world - can't and won't quit Alcohol: none Illicits: none MEDICATIONS: Pill bottles are not present. Adherence: denies missed doses. Pharmacy: [facility] [address] [place] [phone] [facility] [phone] [facility] ([facility] in [place]) Rx coverage: No coverage found. Just got Medicaid approved this past Saturday Medications affordable? Yes Diabetes Supplies: No Organization system: pil box ACTIVE PROBLEM LIST Attention Deficit Disorder Uncontrolled Type 2 Diabetes Mellitus With Hyperglycemia (Hcc) Essential Hypertension Beryl (Obstructive Sleep Apnea) Cavus Deformity of Foot, Acquired Cervical Spine Pain Anxiety and Depression Mixed Hyperlipidemia Spinal Stenosis, Lumbar Region, Without Neurogenic Claudication Right Testicular Pain Tobacco Use Gastroesophageal Reflux Disease With Esophagitis Bipolar Disorder ([facility]) Substance Abuse ([facility]) Obesity (Bmi 30.0-34.9) Contusion of Unspecified Back Wall of Thorax, Initial Encounter Acute Lumbosacral Myofascial Strain Back Contusion Chronic Back Pain Bronchitis Cervical Strain Cocaine Dependence With Intoxication (Hcc) Gallstone Pancreatitis Gastroesophageal Reflux Disease Hyperosmolar Non-Ketotic State in Patient With Type 2 Diabetes Mellitus (Hcc) Injury of Head Laceration of Leg, Right Orchitis and Epididymitis Ptsd (Post-Traumatic Stress Disorder) Viral Infection Belching Change in Bowel Habits Early Satiety History of Cocaine Use Nausea and Vomiting Gastroparesis Due to Secondary Diabetes (Hcc) Precordial Pain Sensorineural Hearing Loss (Snhl) of Both Ears Thoracolumbar Back Pain Ddd (Degenerative Disc Disease), Thoracolumbar 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 of hyperactivity diagnosed in childhood Back pain 02/12/2012 Bile acid esophageal reflux 11/14/2022 Bipolar disorder (HCC) Chronic post-traumatic headache Closed fracture of dorsal (thoracic) vertebra without mention of spinal cord injury 04/03/2012 Corns and callosities 12/05/2009 Depressive disorder, not elsewhere classified 06/10/2012 DIABETES MELLITUS TYPE II-UNCOMPL 08/30/2008 Dysmetabolic syndrome X 07/21/2008 Gastroesophageal reflux disease with esophagitis Hydronephrosis 11/13/2022 Mild right Nonspecific abnormal results of liver function study 04/06/2005 Ferritin 225, HBsAg and Hep C negative in 10-30 /S Fatty Liver BERYL (obstructive sleep apnea) DME [facility] Respiratory Pain in joint, lower leg 06/05/2012 Right testicular pain 09/15/2021 Substance abuse (HCC) Tobacco use Unspecified essential hypertension 08/30/2008 Past medical history reviewed. ALLERGIES Allergen Reactions Hydrocodone Bitartr* GI Upset Trulicity [Dulaglut* Contraindication-Medical Surgical GASTROPARESIS, cannot use GLP1 Fibrate Anti-Lipide* Myalgia Medication List Medication Directions Comments Action/Plan atorvastatin (LIPITOR) 20 mg tablet Take 1 tablet by mouth daily at bedtime. For cholesterol. Patient not taking: Reported on 08/24/2024 Not currently taking buPROPion XL (WELLBUTRIN XL) 150 mg 24 hr tablet Take 1 tablet by mouth once daily. Patient not taking: Reported on 08/24/2024 Not currently taking clonazePAM (KLONOPIN) 1 mg tablet Take 1 tablet by mouth two times a day as needed for anxiety for up to 7 days. Currently taking 1-2x/day PRN CPAP Autopap 5-20 cm H2O, Heat Humidity, suitable mask, [employer] supplies, opt Chinstrap, G47.33. Patient not taking: Reported on 08/22/2023 supplies Discontinued: 09/01/2024 3:00 PM insulin glargine 100 unit/mL (3 mL) Inject 50 Units subcutaneously daily at bedtime. or as directed Taking Lantus 50 units QHS insulin lispro (HUMALOG U-100 INSULIN) 100 unit/mL crtg Take 12 units with meals. Insulin Sliding Scale: BG 70-150, give 0 units; BG 151-180, give 4 units; BG 181-220, give 6 units; BG 221-260, give 8 units; BG 261-300, give 10 units; BG 301-340, give 12 units; BG 341-380, give 14 units and call provider. Patient not taking: Reported on 08/24/2024 Not currently taking insulin needles, DISPOSABLE, (BD INSULIN PEN NEEDLE UF) 31 gauge x 5/16 Use to inject insulin as directed. Up to 5 daily injections Patient not taking: Reported on 08/24/2024 supplies Lancets lancets Choose lancets covered by insurance. Test blood sugar(s) 3 times daily. Dx: Type 2 DM - Uncontrolled E11.65 Insulin: Yes Patient taking differently: Choose lancets covered by insurance. Test blood sugar(s) 3 times daily. Dx: Type 2 DM - Uncontrolled E11.65 Insulin: Yes supplies lisinopril (ZESTRIL) 5 mg tablet Take 1 tablet by mouth once daily. Patient not taking: Reported on 08/24/2024 Not currently taking lisinopril (ZESTRIL) 5 mg tablet Take 1 tablet by mouth once daily. Patient not taking: Reported on 09/01/2024 duplicate Discontinued: 09/01/2024 3:00 PM metFORMIN (GLUCOPHAGE) 500 mg tablet Take 2 tablets by mouth two times a day with meals. Taking BID as directed metoprolol succinate ER (TOPROL XL) 50 mg 24 hr tablet Take 1 tablet by mouth once daily. Patient not taking: Reported on 08/24/2024 Not currently taking pioglitazone (ACTOS) 30 mg tablet Take 1 tablet by mouth once daily. Patient not taking: Reported on 08/24/2024 Not currently taking QUEtiapine (SEROQUEL) 50 mg tablet Take 1 tablet by mouth daily at bedtime. Taking QHS Discontinued: 09/01/2024 3:00 PM sertraline (ZOLOFT) 50 mg tablet Take 1 tablet by mouth once daily. Taking QHS terazosin (HYTRIN) 5 mg capsule Take 1 capsule by mouth daily at bedtime. Patient not taking: Reported on 08/24/2024 Not currently taking Rx meds not listed in EPIC: none OTCs: none Herbals: none Exam: There were no vitals taken for this visit. Last 3 Encounter BP Readings: Date: BP: 09/01/2024 122/88 08/24/2024 144/88 03/13/2024 135/88 Wt: 117.1 kg (258 lb 2.5 oz) BMI: 31.42 kg/(m^2) LABS: Reviewed Lab Results Component Value Date HBA1C 11.8 08/24/2024 HBA1C 10.6 07/17/2023 HBA1C 6.8 02/12/2023 HBA1C 12.7 09/19/2020 HBA1C 10.4 08/03/2019 HBA1C 12.0 01/19/2019 HBA1C 10.0 10/20/2018 CMP: Glucose 469 08/24/2024 BUN 19 08/24/2024 Creatinine, Whole Blood (iSTAT) 0.77 08/24/2024 Sodium 130 08/24/2024 Potassium 4.2 08/24/2024 Chloride 96 08/24/2024 CO2 21 08/24/2024 Protein, Total 7.5 08/24/2024 Albumin 4.4 08/24/2024 Calcium 10.1 08/24/2024 Alkaline Phosphatase 147 08/24/2024 Bilirubin, Total 0.4 08/24/2024 AST 15 08/24/2024 ALT 31 08/24/2024 Estimated Creatinine Clearance: 171.3 mL/min (based on SCr of 0.77 mg/dL). Lab Results Component Value Date CHOL 278 08/24/2024 CHOL 542 09/19/2020 LDL 08/24/2024 Comment: Unable to calculate due to increased Triglycerides. See LDL-Chol, Direct. LDL 07/17/2023 Comment: Unable to calculate due to increased Triglycerides. A Direct LDL Cholesterol measurement will not be performed. If clinically indicated, a fasting Basic Lipid Panel (LIPB) may be ordered. LDL 09/19/2020 Unable to calculate due to increased Triglycerides. See LDL-Chol, Direct. HDL 26 08/24/2024 HDL 12 09/19/2020 TG 1,384 08/24/2024 TG 4,520 09/19/2020 The 10-year ASCVD risk score (Tom GOFF, et al., 2019) is: 36.3% Values used to calculate the score: Age: 44 years Sex: Male Is Non- : No Diabetic: Yes Tobacco smoker: Yes Systolic Blood Pressure: 122 mmHg Is BP treated: Yes HDL Cholesterol: 26 mg/dL Total Cholesterol: 278 mg/dL Albumin/Creat Ratio (mg/g) Date Value 07/17/2023 29 PHARMACOTHERAPY ASSESSMENT/PLAN: 1. Uncontrolled type 2 diabetes mellitus with hyperglycemia (HCC) - ICD9: 250.02, ICD10: E11.65 (primary diagnosis) A1c goal < 7%; uncontrolled (last A1c 11.8%); no SMBG to review; since restarting metformin and Lantus sx of hyperglycemia are improving; no issues with lows; refuses SMBG but agreeable to CGM so will order today; no med changes since no Bgs to review; will consider med changes at f/up visit (pt recalls gastroparesis with GLP1, plus has hx of pancreatitis and currently has very elevated TRGs so will not plan to retry GLP1 at this time; will consider SGLT2i); pt indicated for statin so will start today; f/up in 3-4 weeks INITIATE rosuvastatin 40mg daily CMP and lipid panel in 1-3 months Counseled on potential for muscle pains, let office know if any issues CONTINUE metformin 1000mg BID and Lantus 50 units daily Freestyle Jose 3+ sensors ordered Diabetic Education given re: disease pathology, signs of high blood sugar, risks of poor control, healthy diet, need for aerobic exercise Pt eating exorbitant amount of potato chips daily. Advised stopping, switch to veggies and high-fiber fruit Encouraged smoking cessation but patient not at all interested ACEi/ARB for renal protection: no, not indicated Statin: starting today - FREESTYLE JOSE 3 PLUS SENSOR DEVICE - ROSUVASTATIN 40 MG TABLET - COMPREHENSIVE METABOLIC PANEL - LIPID PANEL BASIC - PEN NEEDLE, DIABETIC 31 GAUGE X 11/06 2. Medication management - ICD9: V58.69, ICD10: Z79.899 Reviewed all medications, indications, dosing, frequency, administration with patient. Medication list updated as described above. Nonadherence: has been recent issue, stopped all meds due to depression ~6 weeks ago; feeling much better now; med cost used to be an issue but just approved for Medicaid on Saturday, 09/04, so cost shouldn't be an issue. Health Maintenance - Diabetes Topic Date Due Pneumococcal Vaccine (2 of 2 - PCV) 11/28/2010 Diabetic Foot Exam 05/09/2023 Dilated Retinal Exam 08/24/2023 Urine Albumin:Creatinine Ratio 07/17/2024 Follow-up Patient is scheduled to see PCP team on 09/07 (Today). Patient to have f/up with PharmD team on 09/28. Patient verbalized understanding of instructions. Kye Meade PharmD, BCPS Primary Care Clinical Pharmacist Time spent: 49 mins documented in this encounter [facility] 09-07-2024 Note HNO ID: [id number] Author: KYE MEADE RPh Service: ? Author Type: Pharmacist Type: Progress Notes Filed: 09/07/2024 12:06 Note Text: Primary Care Pharmacy Visit CC (Reason for Consult): Diabetes (E11.65) Uncontrolled type 2 diabetes mellitus with hyperglycemia (HCC) (primary encounter diagnosis) Goal: A1c < 7% Last Collaborating Provider Visit: 09/01/24 Denver Hollingsworth is a 44 year old male presenting for initial visit: This initial consult was conducted telephone call with the patient where the consult agreement was explained. The patient may decline or cancel the agreement at any time. After consideration, the patient consented to the pharmacy consult agreement and agreed to allow medications be collaboratively managed by a pharmacist. Interim Events: 08/24: went to urgent care for lightheadedness, dizziness, anxiety, had stopped all meds for 6 weeks; POC glucose was 548 mg/dL so he went to ER 09/01: PCP restarted sertraline, quetiapine; ordered short-term clonazepam; referred to behavioral health; metformin and long-acting insulin restarted, pt referred to pharmacy HPI: Reports he had bad depression which is why he stopped taking his meds about 6 weeks ago. Flushed all meds down toilet. Has really noticed an improvement in depression this past week since seeing POLYSOMNOGRAPHY TECHNICIAN and restarting psych meds and DM meds. Since restarting meds, not feeling as thirsty, not peeing as much, mood is somewhat better. No change in energy level. No low sugar sx. He and are , currently going through a divorce. Used to have Dexcom G7, sensors didn't stick to skin. Personal goals: trying to be the best he can be; not let mental health get out of hand; short fuse; DM killed his dad so he wants to control it, wants to take things seriously Not checking blood sugar. Refuses to do fingersticks. No gall bladder, can't digest nuts. Current DM Medications: Metformin 500mg tabs - 1000mg BID Pioglitazone 30mg daily (not taking) Insulin glargine (Lantus) 50 units daily Insulin lispro (Humalog) 12 units + SSI TIDAC (not taking) Past DM medications: Jardiance - thinks it worked but cost was too high Ozempic - reports he never tried, was on back order Trulicity - gastroparesis Preventative Medications: On MADDI/ARB: Yes On Statin: Yes ROS: Patient denies CP, SOB, GAMBINO, blurred vision, dizziness or lightheadedness Patient denies symptoms of hypoglycemia (sweating, anxiety, palpitations, hunger, and tremor) Patient denies symptoms of hyperglycemia (polyuria, polydipsia, polyphagia) Patient denies potential medication adverse effects DIET/EXERCISE/SOCIAL Hx: Usually eats 1 meal/day (supper) but snacks throughout the day Breakfast: usually skips food; coffee every morning (with half-half and Splenda) Dinner: ~4:30-5 PM; meat and potatoes, occasionally veggies (green beans and carrots) Snacks: potato chips (will go through 3-4 large bags/week) Beverages: water with sugar-free flavor pack; coffee in AM; will have a pop binge maybe once per month, will drink an entire 12 pack Exercise: none Tobacco: cigarettes, 1 ppd; if I quit smoking I probably wouldn't be safe to the world - can't and won't quit Alcohol: none Illicits: none MEDICATIONS: Pill bottles are not present. Adherence: denies missed doses. Pharmacy: [facility] [id number] [place] [address] [id number] [facility] [phone] [id number] ([facility] in [place]) Rx coverage: No coverage found. Just got Medicaid approved this past Saturday Medications affordable? Yes Diabetes Supplies: No Organization system: pil box ACTIVE PROBLEM LIST Attention Deficit Disorder Uncontrolled Type 2 Diabetes Mellitus With Hyperglycemia (Hcc) Essential Hypertension Beryl (Obstructive Sleep Apnea) Cavus Deformity of Foot, Acquired Cervical Spine Pain Anxiety and Depression Mixed Hyperlipidemia Spinal Stenosis, Lumbar Region, Without Neurogenic Claudication Right Testicular Pain Tobacco Use Gastroesophageal Reflux Disease With Esophagitis Bipolar Disorder (Hcc) Substance Abuse ([facility]) Obesity (Bmi 30.0-34.9) Contusion of Unspecified Back Wall of Thorax, Initial Encounter Acute Lumbosacral Myofascial Strain Back Contusion Chronic Back Pain Bronchitis Cervical Strain Cocaine Dependence With Intoxication ([facility]) Gallstone Pancreatitis Gastroesophageal Reflux Disease Hyperosmolar Non-Ketotic State in Patient With Type 2 Diabetes Mellitus (Hcc) Injury of Head Laceration of Leg, Right Orchitis and Epididymitis Ptsd (Post-Traumatic Stress Disorder) Viral Infection Belching Change in Bowel Habits Early Satiety History of Cocaine Use Nausea and Vomiting Gastroparesis Due to Secondary Diabetes ([facility]) Precordial Pain Sensorineural Hearing Loss (Snhl) of Both Ears Thoracolumbar Back Pain Ddd (Degenerative Disc Disease), Thoracolumbar PAST MEDICAL HISTORY Diagnosis Date Anal fis (more content not included)... [facility] 09-07-2024 Telephone encounter Note Address with appointment today. Kaylee Vincent APRN.CNP [facility] 09-07-2024 Miscellaneous Notes Address with appointment today. Kaylee Vincent APRN.CNP Spoke with patient and he states that his anxiety has improved. Seroquel and klonopin combination does make him sleepy. kicked him out of their home 09/01/24. Is not able to check his blood sugar as he has no meter. Can we call to get an update on how Denver is doing with changes made earlier this week with his medications. Any signs of high or low sugars, how is his mood? Thanks! Kaylee Vincent APRN.CNP documented in this encounter [facility] 09-04-2024 Telephone encounter Note Spoke with patient and he states that his anxiety has improved. Seroquel and klonopin combination does make him sleepy. kicked him out of their home 09/01/24. Is not able to check his blood sugar as he has no meter. [facility] 09-04-2024 Telephone encounter Note Can we call to get an update on how Denver is doing with changes made earlier this week with his medications. Any signs of high or low sugars, how is his mood? Thanks! Kaylee Vincent APRN.ZENOBIA [facility] 09-03-2024 Telephone encounter Note Behavioral Health Social Work Progress Note Patient identified for [facility] from: PCP Reason for referral: [facility] Behavioral Health Resources: Psychiatry med management [facility] encounter type: Telephone Encounter Attempts to Outreach: 1 attempt Patient Discharged?: No Patient reported that caregiver was able to meet their needs today?: N/A therapist attempted to reach patient by phone, recording indicated that vmm has not yet been set up. Patient does not have MyChart. therapist will try to call and reach tomorrow. TATUM Cooper-Pam September 03, 2024 [facility] Work Phone: 09-03-2024 Miscellaneous Notes Behavioral Health Social Work Progress Note Patient identified for [facility] from: PCP Reason for referral: [facility] Behavioral Health Resources: Psychiatry med management [facility] encounter type: Telephone Encounter Attempts to Outreach: 1 attempt Patient Discharged?: No Patient reported that caregiver was able to meet their needs today?: N/A therapist attempted to reach patient by phone, recording indicated that vmm has not yet been set up. Patient does not have MyChart. therapist will try to call and reach tomorrow. TATUM Cooper-S September 03, 2024 documented in this encounter [facility] 09-01-2024 Note HNO ID: [id number] Author: KAYLEE VINCENT APRN.POLYSOMNOGRAPHY TECHNICIAN Service: ? Author Type: Nurse Practitioner Type: Progress Notes Filed: 09/01/2024 16:51 Note Text: SUBJECTIVE Denver Hollingsworth is a 44 year old male here today for concerns. Chief Complaint Patient presents with: Diabetes HPI Denver Hollingsworth is a 44 year old male. He is an established patient of Michelle Jane MD. He presents today acutely and is accompanied by his significant other. He was recently in the ER at [facility]. Sugars have been high. He stopped all of his medications recently and blood sugars have been high. He is also having anxiety, is restless, having manic behaviors. He is not sleeping much. Continues to work with his [facility] counselor. Cannot get in with psychiatry there for another few months. He is not having thoughts of suicide, self harm or of harming others. His medications were reviewed today and his list is now up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 Within normal limits Medical record and diagnostic tests reviewed for today's visit: The [facility] EMR was reviewed during the visit IMAGING STUDIES: No new imaging studies were reviewed during this office visit. ASSESSMENT: (M54.50, G89.29) Chronic bilateral low back pain without sciatica (primary encounter diagnosis) Discussion: A discussion was entertained regarding multicomponent pain source. Discussed conservative options and focus on improvement of function and the concerns of ongoing or developing chronic pain. Discussed the rationale behind interventional approach and how it can facilitate improvement of pain but also diagnostic information that procedures provide. 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 PLAN: 1. The patient is also history of back pain. He has had multiple interventions including most recently physical therapy followed by alternative therapy including dry needling without improvement. Prior MRI shows degenerative disc changes worse at L3-L4 and L4-5 levels. Recommend repeating the MRI of the lumbar spine. Consider good therapy with aquatics program. 2. No interventional procedures indicated 3. Norflex 100 mg 1 p.o. twice daily as needed x 2 weeks. 4. Counseled patient regarding the importance of activity modification and exercise. 5. Follow up: We will contact with results of the imaging studies and we will provide further recommendation at that time. The above plan and management options were discussed with patient. The patient is in agreement with the above and verbalized understanding. I have discussed and confirmed the above treatment plan with the patient and I have reviewed the nurses notes and I am aware of the family/social history. I have confirmed ROS findings. Iain Nguyễn MD 1. This document has been created with the use of voice recognition technology. It may contain inaccuracies: (e.g. misspellings, inaccurate syntax or word sense) that have escaped review. 2. The nurse practitioner, nursing staff and medical assistants are a major part of YOUR TREATMENT TEAM and will be handling your phone calls and inquiries, if any. Unless explicitly told otherwise at the time of your office visit, your study results and ensuing treatment plans will be discussed during your follow-up appointment. If you do not have a follow-up appointment and wish to discuss any issues, please set up an appointment. 3. It is my practice to not fill disability or any other insurance-related forms/documentation. All of the office notes, study results, and other pertinent documentation generated as part of your evaluation will be available to you and to your Primary Care Physician (PCP). Use of this material to complete such forms will be at the discretion of your PCP/referring physician. February 12, 2024 cc: SELF Phone: N/A Fax: Results of consultation to be transmitted via electronic medical record for those providers who practice within [facility] or with access to [employer] via MD Connect, or via letter. documented in this encounter [facility] 02-11-2024 History of Present illness Narrative Images from the original note were not included. Episode Visit Count: 3 Therapist That Will Accept/Oversee The Plan Of Care: Federico Zapata Start of Care Date: 01/07/24 Onset Date: 06/24/23 REHABILITATION AND SPORTS THERAPY PHYSICAL THERAPY DISCONTINUANCE OF CARE PLAN OF CARE UPDATE: Assessment: Denver Hollingsworth is discontinued from Physical Therapy services due to maximal benefit. and Patient/Clinician mutual decision to discontinue current plan of care.. Patient was seen for 3 visits from Start of Care Date: 01/07/24 to 02/11/2024 and treatment included: Therapeutic exercise, Manual therapy, and Self-alf management. Patient has seen no change in pain or function since starting therapy. Therapist was unable to find a mechanical provocation or improvement to patients symptoms today, suggesting pain is non-mechanical in nature and further work up should be done by referring physician to determine source of pain and symptoms. Goals updated on 02/11/2024. Goals for Episode of Care: created on 01/07/24 through 03/12/24 Independent in home exercises. Met Patient will decrease pain rating by 2 points to meet minimal clinical important difference for numeric pain rating scale. Not met Restore pain-free lumbar ROM to minimal limitations to allow for improved functional mobility. Not met Stand / Walk as needed for ADLs without pain/symptoms. Not met Sleep through night without pain/symptoms. Not met Restore pain free cervical ROM to WNL to allow for improved pain and mobility. Not met Drive with no aggravation of pain/symptoms. Not met SUBJECTIVE: Patient with severe LBP today upon waking. Difficult to sit, stand up straight, etc. Notes the LLE feels weak and could give out on him. Needling felt good until bed time after last session with pain returning the next morning. Pain: Pain Pain Level: 10 Pain Location: Low Back/Lumbar Spine - Left Description: Sharp, Spasm, Stabbing Frequency: Continuous PROMIS Scales 02/11/2024 08/28/2021 Higher is Better Phys Func - Score 27 (severe dysfunction) 35 (moderate dysfunction) Phys Func - Percentile 1 7 Self-Eff Symptom - Score 26 (Very Low) Self-Eff Symptom - Percentile 1 T-scores: mean of general population = 50. 5 points is clinically meaningfully difference Percentiles provide an indication of how the patient's score ranks in relation to the general population. Higher percentile rankings indicate better function/quality of life. 50th percentile is the average of the general population and indicates half of respondents had a worse score. OBJECTIVE MEASURES WITH LEVEL OF FUNCTION: Lumbar Spine AROM Lumbar Flexion: Moderate limitation Lumbar Extension: Major limitation Lumbar R Side-Bend: Moderate limitation Lumbar L Side-Bend: Major limitation Lumbar R Rotation: Major limitation Lumbar L Rotation: Major limitation LE Strength Trunk Strength: 3/5 R LE Strength: 4+/5 grossly L LE Strength: 3+ to 4-/5 grossly TREATMENT: Manual Therapy: 1: Manual lumbar belt traction with pull to tolerance x4 min 2: STM to L lumbar paraspinals Dry Needling: (2) 50 mm needles to L lumbar paraspinals at L 4-5 with light pistoning (2 needles in, 2 needles out. Patient consent gained prior to intervention) Skilled Intervention: Manual skills to improve joint mobility, ROM, and decrease pain. Utilized anatomy knowledge of the therapist, and assessment of patient's response to intervention. Billing Manual TherapyTreatment Minutes: 25 Skilled Treatment Time Minutes (timed and untimed codes): 25 Total Session Time (minutes): 25 Session Start Time : 1716 Session Stop Time : 174 Federico Zapata PT documented in this encounter [facility] 01-30-2024 History of Present illness Narrative Episode Visit Count: 2 Therapist That Will Accept/Oversee The Plan Of Care: Federico Zapata Start of Care Date: 01/07/24 Onset Date: 06/24/23 REHABILITATION AND SPORTS THERAPY PHYSICAL THERAPY TREATMENT NOTE ASSESSMENT: Denver Hollingsworth tolerated the session with decreased symptoms and no issues. He demonstrated improvements in thoracic pain following manual techniques today. The patient will continue to benefit from ongoing skilled physical therapy to progress toward set goals. PLAN FOR NEXT VISIT: Assess carry over from needling SUBJECTIVE: Patient with no change in symptoms since first being seen. Mid back is hurting the most today, specifically the L side, would like to focus there as when that spasms he has a hard time even breathing Pain: Pain Pain Level: 10 Pain Location: Thoracic Spine - Left Description: Sharp, Spasm Frequency: Intermittent OBJECTIVE MEASURES WITH LEVEL OF FUNCTION: Palpation to below noted muscle reproduces pain TREATMENT: Manual Therapy: 1: STM an CFM to thoracic paraspinals with push to tolerance Dry Needling: (2) 30 mm needles to L rhomboids with pistoning and fanning; (1) 30 mm needle to thoracic paraspinals at T6, 8, 10, 12 with psitoning and fanning using split finger block for intercostal space (6 needles in 6 needles out. Patient consent gained) Skilled Intervention: Manual skills to improve joint mobility, ROM, and decrease pain. Utilized anatomy knowledge of the therapist, and assessment of patient's response to intervention. Billing Manual TherapyTreatment Minutes: 40 Skilled Treatment Time Minutes (timed and untimed codes): 40 Total Session Time (minutes): 40 Session Start Time : 1709 Session Stop Time : 1749 Federico Zapata PT Program_ID:[id number] Access Code: [email or web address] URL: [email or web address] Date: 01-28-2024 Prepared By: Federico Zapata Program Notes Exercises - Seated Passive Cervical Retraction - 1 x daily - 7 x weekly - 3 sets - 10 reps - Seated Cervical Retraction and Extension - 1 x daily - 7 x weekly - 3 sets - 10 reps - Cat Cow - 1 x daily - 7 x weekly - 3 sets - 10 reps documented in this encounter [facility] 01-23-2024 Telephone encounter Note Patient was no show for new in office visit today. Per review of Appt Desk, patient already rescheduled for new visit on 03/05/24. Nora Dodson PharmD, BCACP Primary Care Clinical Fern Gatherer [facility] Work Phone: 01-23-2024 Miscellaneous Notes Patient was no show for new in office visit today. Per review of Appt Desk, patient already rescheduled for new visit on 03/05/24. Nora Dodson PharmD, BCACP Primary Care Clinical Fern Gatherer documented in this encounter [facility] 01-10-2024 History of Present illness Narrative Images from the original note were not included. Episode Visit Count: 1 Therapist That Will Accept/Oversee The Plan Of Care: Federico Zapata Start of Care Date: 01/07/24 Onset Date: 06/24/23 Patient Identified by Name and Date of : Yes REHABILITATION AND SPORTS THERAPY PHYSICAL THERAPY EVALUATION PLAN OF CARE: Assessment: Denver Hollingsworth presents with chief complaint of neck and back pain that interferes with rising from a chair, standing, walking, bending, heavy exertion, lifting, physical activities, working, sleeping . He presents with impairments in ADL's, overall function, range of motion, strength, symptom management, and tissue tenderness. Patient did not complete the PROMIS (Patient Reported Outcome Measures Information System). Prognosis for therapy is Fair due to: clinical presentation, multiple co- morbidities, chronic nature of impairments, limited tolerance to activity . He will benefit from skilled therapy services to meet the goals established for this plan of care as noted below. Classification Pain Mechanism Classification: Neuropathic Low Back Pain Classification: Central Mechanism/Nociplastic Pain Goals for Episode of Care: created on 01/07/24 through 03/12/24 Independent in home exercises. Patient will decrease pain rating by 2 points to meet minimal clinical important difference for numeric pain rating scale. Restore pain-free lumbar ROM to minimal limitations to allow for improved functional mobility Stand / Walk as needed for ADLs without pain/symptoms. Sleep through night without pain/symptoms. Restore pain free cervical ROM to WNL to allow for improved pain and mobility. Drive with no aggravation of pain/symptoms. Planned Interventions, Frequency, and Duration: Current Frequency: 1x/week Duration: 8 weeks Total Number of Visits Planned: 8 Planned Treatment Interventions: Therapeutic exercise (88348), Neuromuscular re-education (89781), Manual therapy (62700), Therapeutic activities (97003), Self-alf management (61862), Patient/Family/Caregiver Education, Body Mechanics Training PLAN FOR NEXT VISIT: assess carry over of cervical HEP. May trial traction or dry needling in future visits Patient demonstrates good understanding of plan of care and treatment. The above goals and plan of care were discussed and agreed upon by patient/family. SUBJECTIVE: Entire spine pain for years, really since he was a teen. Notes specific owrsening in the last few years with slow but progressive worsening. Very difficult to stand, walk, or really function for any length of time more than a few minutes Functional Limitations: rising from a chair, standing, walking, bending, heavy exertion, lifting, physical activities, working, sleeping Intake Information: Prescription present Red Flags Vertebral Fracture Clinical Reasoning: No identified risk factors Abdominal Aortic Aneurysm Clinical Reasoning: No identified risk factors. Cancer Clinical Reasoning: No identified risk factors. Infection Clinical Reasoning: No identified risk factors. Cauda Equina Syndrome Clinical Reasoning: No identified risk factors. Cervical Arterial Dysfunction Clinical Reasoning: No identified risk factors Cervical Myelopathy Diagnostic Rule: No identified risk factors. Red Flags - Cervical Cancer Clinical Reasoning: No identified risk factors. Infection Clinical Reasoning: No identified risk factors. Cervical Arterial Dysfunction Clinical Reasoning: No identified risk factors Cervical Myelopathy Diagnostic Rule: No identified risk factors. Pain: Pain Pain Level: 10 Pain Location: Neck, Back Description: Sharp, Aching, Sore, Radiating Frequency: Continuous Post Treatment Pain Post Treatment Pain Level: No Change PROMIS Scales 08/28/2021 Higher is Better Phys Func - Score 35 (moderate dysfunction) Phys Func - Percentile 7 T-scores: mean of general population = 50. 5 points is clinically meaningfully difference Percentiles provide an indication of how the patient's score ranks in relation to the general population. Higher percentile rankings indicate better function/quality of life. 50th percentile is the average of the general population and indicates half of respondents had a worse score. OBJECTIVE MEASURES WITH LEVEL OF FUNCTION: Lumbar Spine AROM Lumbar Flexion: Moderate limitation, Increased pain Lumbar Extension: Major limitation, Increased pain Lumbar R Side-Bend: Moderate limitation, Increased pain Lumbar L Side-Bend: Moderate limitation, Increased pain Lumbar R Rotation: Minimal limitation Lumbar L Rotation: Minimal limitation Cervical Spine ROM Cervical ROM : Limitation AROM Cervical Flexion AROM: Moderate limitation, Increased pain Cervical Extension AROM: Normal Cervical Side-Bend Right AROM: Normal Cervical Side-Bend Left AROM: Moderate limitation, Increased pain Cervical Rotation Right AROM: Normal Cervical Rotation Left AROM: Normal Special Tests - Cervical Cervical Special Tests: Cervical Compression, Quadrant, Spurling Cervical Compression: Negative Quadrant: Right Positive, Left Positive Spurling: Right Negative, Left Negative Education: Education Learning/educational needs: Home exercise program, Plan of Care, Changes in Plan of Care, Posture, Body Mechanics TREATMENT: PT Treatment Interventions: Therapeutic Exercise, Self-Fci Management Evaluation Therapeutic Exercise: 1: *Cervical retractions 3x10 2: *Cervical extensions 3x10 Skilled Intervention: Patient was educated in proper exercise technique and purpose for exercises. Skilled judgment was used in selection of appropriate interventions. Provided written instruction for home exercise program to facilitate proper performance and compliance. Correct performance of therapeutic exercises was facilitated with verbal and visual cuing. Self-Fci Management: 1: reviewed imaging and counseled patient on rehab inplications. Skilled Intervention: Skilled judgment in the selection of proper modification for activity of daily living/home management based on clinical presentation, deficits, and needs. Reviewed patient specific diagnosis in relation to activities of daily living/home management. Activity progression based on professional judgement. Billing * Evaluation Moderate Complexity: 1 Unit Therapeutic Exercise Treatment Minutes: 5 Self-Care/Home Management Treatment Minutes: 10 Skilled Treatment Time Minutes (timed and untimed codes): 48 Total Session Time (minutes): 48 Session Start Time : 1300 Session Stop Time : 1348 Federico Zapata PT Program_ID:[id number] Access Code: [email or web address] URL: [email or web address] Date: 01-07-2024 Prepared By: Federico Zapata Program Notes Exercises - Seated Passive Cervical Retraction - 1 x daily - 7 x weekly - 3 sets - 10 reps - Seated Cervical Retraction and Extension - 1 x daily - 7 x weekly - 3 sets - 10 reps documented in this encounter [facility] 12-25-2023 Telephone encounter Note Yes he needs to get in and see Federico. New order placed. [facility] 12-25-2023 Miscellaneous Notes Yes he needs to get in and see Federico. New order placed. Patient was previously scheduled with Federico Zapata for dry needling on 01/07/24, please advise if there is anything else to schedule. PT order has been placed. Please call patient to schedule. Handicap placard has been mailed to patient's home address. I'm not sure handicap parking is ideal for him, the walking is beneficial. I will only do it for a year so we can re-evaluate. For dry needling, is he doing PT anywhere currently? PATIENT NOTIFIED OF SAME. Patient is also asking for handicap placcrd and order for needling. See message below. I would give the increase in Actos a few more days and then if still running consistently with numbers 250 or above we can increase the actos again. Spoke with patient and he states that he is feeling ok taking the Actos. Blood sugars are still high. Readings today were [address] Jane mentioned that patient may benefit from dry needling and patient would like to try this. He is also asking for 2 handicap placards. Stated for 10 years. Attempted to reach patient with no answer and unable to leave a message due to voice mail not set up. Please let them know to see how he responds to the increased Actos, we can increase further if needed for better glucose control. Patient returned call. He says he forgot to increase Actos and cannot afford Jardiance. He says he has no insurance and Jardiance is $700. 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 Radha Velazquez, RN Voice mailbox not set up for the (EC). Will need to try again. Anika Jones LPN TC no answer. Unable to leave VM d/t mailbox not set up. Please try again later. LUCY Mcnair Please see if he increased his Actos dose and started the Jardiance we sent with his last visit. Spouse called to schedule pharmacist as was discussed during PCP OV on 12/04/23. Patient is scheduled for 01/23/24, added to wait list. Spouse is requesting advice on diabetic management prior to scheduled visit. documented in this encounter [facility] 12-25-2023 Telephone encounter Note Patient was previously scheduled with Federico Zapata for dry needling on 01/07/24, please advise if there is anything else to schedule. [facility] 12-25-2023 Telephone encounter Note PT order has been placed. Please call patient to schedule. Handicap placard has been mailed to patient's home address. [facility] 12-25-2023 Telephone encounter Note I'm not sure handicap parking is ideal for him, the walking is beneficial. I will only do it for a year so we can re-evaluate. For dry needling, is he doing PT anywhere currently? [facility] 12-25-2023 Telephone encounter Note PATIENT NOTIFIED OF SAME. Patient is also asking for handicap placcrd and order for needling. See message below. [facility] 12-25-2023 Telephone encounter Note I would give the increase in Actos a few more days and then if still running consistently with numbers 250 or above we can increase the actos again. [facility] 12-25-2023 Telephone encounter Note Spoke with patient and he states that he is feeling ok taking the Actos. Blood sugars are still high. Readings today were [address] Jane mentioned that patient may benefit from dry needling and patient would like to try this. He is also asking for 2 handicap placards. Stated for 10 years. [facility] 12-23-2023 Telephone encounter Note Attempted to reach patient with no answer and unable to leave a message due to voice mail not set up. [facility] 12-23-2023 Telephone encounter Note Please let them know to see how he responds to the increased Actos, we can increase further if needed for better glucose control. [facility] 12-21-2023 Telephone encounter Note The following approved medication requests have been transmitted electronically. Requested Prescriptions Pending Prescriptions Disp Refills omeprazole (PRILOSEC) 40 mg capsule 60 capsule 3 Sig: Take 1 capsule by mouth two times a day. Michelle Jane MD [facility] 12-21-2023 Miscellaneous Notes The following approved medication requests have been transmitted electronically. Requested Prescriptions Pending Prescriptions Disp Refills omeprazole (PRILOSEC) 40 mg capsule 60 capsule 3 Sig: Take 1 capsule by mouth two times a day. Michelle Jane MD The patient has been identified by name and date of : Yes Caregiver verified no other encounters exist for this prescription request: Yes Caregiver confirmed with patient/requestor that no other refills are due, in the near future, with this provider at this time: Yes The last office visit in the department: 12/04/2023 Does the patient have a future office visit with this provider/department: Yes 02/11/2024 Requested Prescriptions Pending Prescriptions Disp Refills omeprazole (PRILOSEC) 40 mg capsule 60 capsule 3 Sig: Take 1 capsule by mouth two times a day. Radha Velazquez RN December 21, 2023 8:24 AM documented in this encounter [facility] 12-21-2023 Telephone encounter Note Patient returned call. He says he forgot to increase Actos and cannot afford Jardiance. He says he has no insurance and Jardiance is $700. 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 Radha Velazquez RN [facility] 12-21-2023 Telephone encounter Note The patient has been identified by name and date of : Yes Caregiver verified no other encounters exist for this prescription request: Yes Caregiver confirmed with patient/requestor that no other refills are due, in the near future, with this provider at this time: Yes The last office visit in the department: 12/04/2023 Does the patient have a future office visit with this provider/department: Yes 02/11/2024 Requested Prescriptions Pending Prescriptions Disp Refills omeprazole (PRILOSEC) 40 mg capsule 60 capsule 3 Sig: Take 1 capsule by mouth two times a day. Radha Velazquez RN December 21, 2023 8:24 AM [facility] 12-18-2023 Telephone encounter Note Voice mailbox not set up for the (EC). Will need to try again. Anika Jones LPN [facility] 12-18-2023 Telephone encounter Note TC no answer. Unable to leave VM d/t mailbox not set up. Please try again later. LUCY Mcnair [facility] 12-18-2023 Telephone encounter Note Please see if he increased his Actos dose and started the Jardiance we sent with his last visit. [facility] 12-16-2023 Telephone encounter Note Spouse called to schedule pharmacist as was discussed during PCP OV on 12/04/23. Patient is scheduled for 01/23/24, added to wait list. Spouse is requesting advice on diabetic management prior to scheduled visit. [facility] 12-11-2023 History of Present illness Narrative documented in this encounter [facility] 12-11-2023 History of Present illness Narrative [place] 1980 REFERRING PHYSICIAN: Michelle Jane MD CHIEF COMPLAINT: Consult (Lump on back. ) HPI: The patient is a 43 year old male presents with complaint of mass of lower back. He does not know how long it has been present. 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 of hyperactivity diagnosed in childhood Back pain 02/12/2012 Bile acid esophageal reflux 11/14/2022 Bipolar disorder (HCC) Chronic post-traumatic headache Closed fracture of dorsal (thoracic) vertebra without mention of spinal cord injury 04/03/2012 Corns and callosities 12/05/2009 Depressive disorder, not elsewhere classified 06/10/2012 DIABETES MELLITUS TYPE II-UNCOMPL 08/30/2008 Dysmetabolic syndrome X 07/21/2008 Gastroesophageal reflux disease with esophagitis Hydronephrosis 11/13/2022 Mild right Nonspecific abnormal results of liver function study 04/06/2005 Ferritin 225, HBsAg and Hep C negative in 10-30 /S Fatty Liver BERYL (obstructive sleep apnea) DME [facility] Respiratory Pain in joint, lower leg 06/05/2012 Right testicular pain 09/15/2021 Substance abuse (HCC) Tobacco use Unspecified essential hypertension 08/30/2008 PAST SURGICAL HISTORY Procedure Laterality Date CHOLECYSTECTOMY 2017 COLONOSCOPY 07/29/2013 Normal COLONOSCOPY 11/29/2022 EAR TUBES HX EGD 11/29/2022 ESOPHAGOGASTRODUODENOSCOPY TRANSORAL DIAGNOSTIC 07/29/2013 H Pylori Gastritis, Gastric cardia type mucosa w/chronic inflammation UNSPECIFIED ORAL SURGERY PROCEDURE, BY REPORT tooth extraction. Current Outpatient Medications Medication Sig empagliflozin (JARDIANCE) 10 mg tablet Take 1 tablet by mouth daily with breakfast. nabumetone (RELAFEN) 500 mg tablet Take 1 tablet by mouth once daily. TAKE WITH FOOD metFORMIN (GLUCOPHAGE) 500 mg tablet Take 2 tablets by mouth two times a day with meals. buPROPion XL (WELLBUTRIN XL) 150 mg 24 hr tablet Take 1 tablet by mouth once daily. empagliflozin (JARDIANCE) 10 mg tablet Take 1 tablet by mouth daily with breakfast. pioglitazone (ACTOS) 30 mg tablet Take 1 tablet by mouth once daily. tiZANidine (ZANAFLEX) 2 mg tablet Take 1-2 tablets by mouth every 6 hours as needed. sildenafil (VIAGRA) 50 mg tablet Take 1-2 tablets by mouth once daily as needed. insulin glargine 100 unit/mL (3 mL) Inject 50 Units subcutaneously two times a day. or as directed insulin lispro (HUMALOG U-100 INSULIN) 100 unit/mL crtg Take 12 units with meals. Insulin Sliding Scale: BG 70-150, give 0 units; BG 151-180, give 4 units; BG 181-220, give 6 units; BG 221-260, give 8 units; BG 261-300, give 10 units; BG 301-340, give 12 units; BG 341-380, give 14 units and call provider. cyanocobalamin (VITAMIN B-12) 1,000 mcg tab Take 1 tablet by mouth once daily. Cholecalciferol, Vitamin D3, 125 mcg (5,000 unit) cap Take 1 capsule by mouth once daily. Blood-Glucose Sensor (Proxama G7 SENSOR) allyson Apply new sensor every ten (10) days. atorvastatin (LIPITOR) 20 mg tablet Take 1 tablet by mouth daily at bedtime. For cholesterol. lisinopril (ZESTRIL) 5 mg tablet Take 1 tablet by mouth once daily. metoprolol succinate ER (TOPROL XL) 50 mg 24 hr tablet Take 1 tablet by mouth once daily. terazosin (HYTRIN) 5 mg capsule Take 1 capsule by mouth daily at bedtime. omeprazole (PRILOSEC) 40 mg capsule Take 1 capsule by mouth two times a day. traZODone (DESYREL) 100 mg tablet Take 1 tablet by mouth daily at bedtime. sertraline (ZOLOFT) 50 mg tablet Take 1 tablet by mouth once daily. insulin needles, DISPOSABLE, (BD INSULIN PEN NEEDLE UF) 31 gauge x 5/16 Use to inject insulin as directed. Up to 5 daily injections Lancets lancets Choose lancets covered by insurance. Test blood sugar(s) 3 times daily. Dx: Type 2 DM - Uncontrolled E11.65 Insulin: Yes (Patient taking differently: Choose lancets covered by insurance. Test blood sugar(s) 3 times daily. Dx: Type 2 DM - Uncontrolled E11.65 Insulin: Yes) CPAP Autopap 5-20 cm H2O, Heat Humidity, suitable mask, [employer], opt Kristopherrafernando, G47.33. (Patient not taking: Reported on 08/22/2023) ALLERGIES: Hydrocodone Bitartrate, Trulicity [Dulaglutide], and Fibrate Anti-Lipidemics PERSONAL HISTORY: Social History Tobacco Use Smoking status: Every Day Packs/day: 1 Types: Cigarettes Start date: 08/11/1995 Smokeless tobacco: Never Vaping Use Vaping Use: Never used Substance Use Topics Alcohol use: No Drug use: Not Currently Types: Cocaine Comment: reports a history of cocaine use - last use 03/14/2019 FAMILY HISTORY Problem Relation Age of Onset Hypertension Mother COPD Mother Diabetes Father Coronary Artery Disease Father Bypass surgery and [place] 2012 Heart Father Heart Brother other (Diverticulitis) Brother Primary Biliary Cirrhosis Brother No Known Problems Maternal Grandmother Cancer Maternal Grandfather unknown No Known Problems Paternal Grandmother Diabetes Paternal Grandfather Colon Cancer No Family History Anesthesia Problems No Family History The review of systems data was entered by the nurse and reviewed by al Nursing Notes: Lakia Schmitz RN 12/11/2023 1:09 PM Signed REVIEW OF SYSTEMS: General: The patient NOTES fatigue, denies weight loss, denies weight gain, denies feeling hot, and denies feelings of cold. Eyes: The patient denies glaucoma, denies eye injury/surgery, wears glasses or contacts. Ear/Nose/Throat: The patient NOTES allergies, denies hayfever, denies ear infections, and denies bloody noses. Cardiovascular: The patient denies chest pain, denies heart disease, NOTES high blood pressure,denies cardiac stent, denies prior heart attack, denies irregular heart beat, denies high cholesterol, NOTES poor circulation, denies heart failure, other cardiac issues, NOTES claudication, NOTES cold feet, denies peripheral arterial stent. Respiratory: The patient denies tuberculosis, denies pneumonia, denies frequent cough, denies pulmonary embolism, denies shortness of breath, and denies coughing up blood. Gastrointestinal: The patient denies difficulty swallowing, NOTES acid reflux, denies ulcers, denies vomiting, denies jaundice/hepatitis, denies gallbladder problems, denies black or tarry stools, denies hemorrhoids, denies bleeding from rectum, denies diverticulitis, denies constipation, denies diarrhea, denies loss of stool control, and denies hernias. Kidney/Bladder: The patient denies kidney stones, denies urine infections, and denies bloody urine. Skin: The patient denies a history of skin cancer, denies bleeding/changing moles, and denies a history of skin rash. Neurologic: The patient denies a history of epilepsy/convulsions, NOTES headaches, NOTES head/spinal injuries, and denies stroke/TIA. Psychiatric: The patient NOTES psychiatric medications, NOTES depression, and denies voices, denies substance abuse. Endocrine: The patient denies thyroid disorders, NOTES diabetes, and denies hormonal problems. Hematologic: The patient denies a history of bruising, denies bleeding, and denies anemia, denies blood clots. Infections: The patient denies a history of measles and mumps, denies rheumatic fever, and denies sexually transmitted diseases. Musculoskeletal: The patient NOTES back pain/injury, NOTES back problems, NOTES sciatica, denies knee/foot trouble, denies arthritis, or denies gout. When was patient's last Mammogram screening? N/A Last Colonoscopy: None Lakia Schmitz RN PHYSICAL EXAMINATION: General: The patient is 43 year old male, well nourished, well hydrated in no acute distress. The patient is oriented to time, place, and person. VITALS: Blood pressure 120/76, pulse 95, temperature 36.1 C (96.9 F), height 193 cm (6' 4), weight 125 kg (275 lb 9.6 oz), SpO2 95%. Body mass index is 33.55 kg/m . Head: Normal cephalic, atraumatic Eyes: pupils are equally round, sclera are clear/anicteric Neck is supple with no tracheal deviation Cardiac: normal heart sounds, regular Respiratory: Normal respiratory excursion and pattern. Abdominal exam: obese and benign Truncal obesity noted Back: right lower - patient points to localized subcutaneous mass - about 2.5 cm - lipomatous/mobile overlying sacral iliac area Extremities: no clubbing, cyanosis or edema. Neuro: non focal Psych: normal mood Assessment IMPRESSION: localized mass, probably lipoma, possible sacral bursa PLAN: I have discussed the above with the patient and his who is present with him and help point out the lesion to me. I have offered excision of this lesion. I have explained the procedure to the patient. I have counseled the patient as to the risks of the procedure, including but not limited to: infection, bleeding, injury to any blood vessels/nerves, scar tissue, wound infections, complications of anesthesia, non relief of patient's present back symptoms, etc. - the patient understands. He believes that removal of this lesion will alleviate his pain, I told him that this is no guarantee. The patient defers procedure. He did not schedule for any procedure in this patient encounter. I have answered all questions to the patient s satisfaction and the patient has no further questions. I have confirmed and edited as necessary, the PFSH and ROS obtained by others. Consultation requested by Dr. Michelle Jane for an opinion regarding patient's localized lower back mass. My final recommendations will be communicated back to the requesting physician by way of shared Medical record or letter to requesting physician via US mail. . Diagnoses: (R22.2) Lump of skin of back Medical Decision Making: Problems: Low: Stable chronic illness Medical Decision Making Level: 2 - Straightforward Magaly Burgos MD documented in this encounter [facility] 12-11-2023 Nurse Note REVIEW OF SYSTEMS: General: The patient NOTES fatigue, denies weight loss, denies weight gain, denies feeling hot, and denies feelings of cold. Eyes: The patient denies glaucoma, denies eye injury/surgery, wears glasses or contacts. Ear/Nose/Throat: The patient NOTES allergies, denies hayfever, denies ear infections, and denies bloody noses. Cardiovascular: The patient denies chest pain, denies heart disease, NOTES high blood pressure,denies cardiac stent, denies prior heart attack, denies irregular heart beat, denies high cholesterol, NOTES poor circulation, denies heart failure, other cardiac issues, NOTES claudication, NOTES cold feet, denies peripheral arterial stent. Respiratory: The patient denies tuberculosis, denies pneumonia, denies frequent cough, denies pulmonary embolism, denies shortness of breath, and denies coughing up blood. Gastrointestinal: The patient denies difficulty swallowing, NOTES acid reflux, denies ulcers, denies vomiting, denies jaundice/hepatitis, denies gallbladder problems, denies black or tarry stools, denies hemorrhoids, denies bleeding from rectum, denies diverticulitis, denies constipation, denies diarrhea, denies loss of stool control, and denies hernias. Kidney/Bladder: The patient denies kidney stones, denies urine infections, and denies bloody urine. Skin: The patient denies a history of skin cancer, denies bleeding/changing moles, and denies a history of skin rash. Neurologic: The patient denies a history of epilepsy/convulsions, NOTES headaches, NOTES head/spinal injuries, and denies stroke/TIA. Psychiatric: The patient NOTES psychiatric medications, NOTES depression, and denies voices, denies substance abuse. Endocrine: The patient denies thyroid disorders, NOTES diabetes, and denies hormonal problems. Hematologic: The patient denies a history of bruising, denies bleeding, and denies anemia, denies blood clots. Infections: The patient denies a history of measles and mumps, denies rheumatic fever, and denies sexually transmitted diseases. Musculoskeletal: The patient NOTES back pain/injury, NOTES back problems, NOTES sciatica, denies knee/foot trouble, denies arthritis, or denies gout. When was patient's last Mammogram screening? N/A Last Colonoscopy: None Lakia Schmitz RN [facility] 12-11-2023 Nurse Note REVIEW OF SYSTEMS: General: The patient NOTES fatigue, denies weight loss, denies weight gain, denies feeling hot, and denies feelings of cold. Eyes: The patient denies glaucoma, denies eye injury/surgery, wears glasses or contacts. Ear/Nose/Throat: The patient NOTES allergies, denies hayfever, denies ear infections, and denies bloody noses. Cardiovascular: The patient denies chest pain, denies heart disease, NOTES high blood pressure,denies cardiac stent, denies prior heart attack, denies irregular heart beat, denies high cholesterol, NOTES poor circulation, denies heart failure, other cardiac issues, NOTES claudication, NOTES cold feet, denies peripheral arterial stent. Respiratory: The patient denies tuberculosis, denies pneumonia, denies frequent cough, denies pulmonary embolism, denies shortness of breath, and denies coughing up blood. Gastrointestinal: The patient denies difficulty swallowing, NOTES acid reflux, denies ulcers, denies vomiting, denies jaundice/hepatitis, denies gallbladder problems, denies black or tarry stools, denies hemorrhoids, denies bleeding from rectum, denies diverticulitis, denies constipation, denies diarrhea, denies loss of stool control, and denies hernias. Kidney/Bladder: The patient denies kidney stones, denies urine infections, and denies bloody urine. Skin: The patient denies a history of skin cancer, denies bleeding/changing moles, and denies a history of skin rash. Neurologic: The patient denies a history of epilepsy/convulsions, NOTES headaches, NOTES head/spinal injuries, and denies stroke/TIA. Psychiatric: The patient NOTES psychiatric medications, NOTES depression, and denies voices, denies substance abuse. Endocrine: The patient denies thyroid disorders, NOTES diabetes, and denies hormonal problems. Hematologic: The patient denies a history of bruising, denies bleeding, and denies anemia, denies blood clots. Infections: The patient denies a history of measles and mumps, denies rheumatic fever, and denies sexually transmitted diseases. Musculoskeletal: The patient NOTES back pain/injury, NOTES back problems, NOTES sciatica, denies knee/foot trouble, denies arthritis, or denies gout. When was patient's last Mammogram screening? N/A Last Colonoscopy: None Lakia Schmitz RN documented in this encounter [facility] 12-11-2023 Telephone encounter Note I attempted to contact patient regarding his upcoming appointment with Dr. Moy. Patient's spouse answered the telephone and stated patient was not available and she would speak for him. Provided education that patient could contact the office to further discuss symptoms and imaging and patient's spouse stated he will not be able to call and she would be happy to offer assistance at this time. Patient's spouse stated patient is being evaluated for cervical, thoracic and lumbar pain. She denied patient having any recent injury or trauma. I provided education regarding obtaining x-rays prior to scheduled appointment. Patient's was agreeable. I provided the office telephone number if patient or patient's spouse had any questions. MARIEL Peralta [facility] 12-11-2023 Miscellaneous Notes I attempted to contact patient regarding his upcoming appointment with Dr. Moy. Patient's spouse answered the telephone and stated patient was not available and she would speak for him. Provided education that patient could contact the office to further discuss symptoms and imaging and patient's spouse stated he will not be able to call and she would be happy to offer assistance at this time. Patient's spouse stated patient is being evaluated for cervical, thoracic and lumbar pain. She denied patient having any recent injury or trauma. I provided education regarding obtaining x-rays prior to scheduled appointment. Patient's was agreeable. I provided the office telephone number if patient or patient's spouse had any questions. MARIEL Peralta documented in this encounter [facility] 12-10-2023 Telephone encounter Note Called patient to get him scheduled due to ED follow up for back pain. Appt request had Debo's number for best contact however no answer and no voice mail set up. Called at 1:08pm today [facility] 12-10-2023 Miscellaneous Notes Called patient to get him scheduled due to ED follow up for back pain. Appt request had Debo's number for best contact however no answer and no voice mail set up. Called at 1:08pm today documented in this encounter [facility] 12-04-2023 History of Present illness Narrative This note was created using Autrement (Hotel[employer]). Subjective Denver Hollingsworth is a 43 year old male. Patient presents with: ED Follow-up: [facility] ED back pain SUBJECTIVE: Denver Hollingsworth is a 43 year old year old gentleman here today for ER follow up appointment for review of medical conditions. Not better after was seen in ER. Morphine and Toradol was effective. Given RX fo naproxen--did not help. Chronic back pain lower back and leg ongoing but chest pain and thoracic pain is new and started 3 weeks ago. Thinks that maybe lifting grandkids a lot contributed. Having pain in neck too. Sometimes pain radiates down leg and so severe not able to do ADLs like bathing and dressing self without help. Had been to PT--TENS were tried and helped some. They worked on walking but not better. No dry needling tried yet. PT done at [facility]. 2019 notes seen--did not continue with program Has not been to pain management. No injections in spine. Needs to use electric cart at grocery store. Has had botox injections in back of head for headaches. Chiropractor told him would need surgery but [facility] would not take his insurance. Treatments were not effective. 2013 MRI lumbar spine 1. L5-S1, small left foraminal disc protrusion/herniation contacts the exiting left L5 nerve root. There is mild to moderate left neural foraminal stenosis. 2. L3-L4, suspected tiny left paracentral disc protrusion/herniation appears to contact the traversing left L4 nerve root. There is effacement of the thecal sac and mild neural foraminal stenosis. 3. L4-L5, effacement of the thecal sac and mild neural foraminal stenosis. 4. T12-L1, slight effacement of the thecal sac. 5. 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 6. Mild chronic loss of height of T12, and slight chronic loss of height of T11 and T10. No acute compression fractures. Did not scheduled for POP as was recommended last year. No problems with GERD or regurgitation. Noted sugars better on Jardiance but cannot afford. $567 for 30 pills. Under 220s. Noted gets reaction to adhesive on DEXCom. 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 of hyperactivity diagnosed in childhood Back pain 02/12/2012 Bile acid esophageal reflux 11/14/2022 Bipolar disorder (HCC) Chronic post-traumatic headache Closed fracture of dorsal (thoracic) vertebra without mention of spinal cord injury 04/03/2012 Corns and callosities 12/05/2009 Depressive disorder, not elsewhere classified 06/10/2012 DIABETES MELLITUS TYPE II-UNCOMPL 08/30/2008 Dysmetabolic syndrome X 07/21/2008 Gastroesophageal reflux disease with esophagitis Hydronephrosis 11/13/2022 Mild right Nonspecific abnormal results of liver function study 04/06/2005 Ferritin 225, HBsAg and Hep C negative in 5- /S Fatty Liver BERYL (obstructive sleep apnea) DME [facility] Respiratory Pain in joint, lower leg 06/05/2012 Right testicular pain 09/15/2021 Substance abuse (HCC) Tobacco use Unspecified essential hypertension 08/30/2008 Current Outpatient Medications Medication Sig metFORMIN (GLUCOPHAGE) 500 mg tablet Take 2 tablets by mouth two times a day with meals. buPROPion XL (WELLBUTRIN XL) 150 mg 24 hr tablet Take 1 tablet by mouth once daily. empagliflozin (JARDIANCE) 10 mg tablet Take 1 tablet by mouth daily with breakfast. pioglitazone (ACTOS) 30 mg tablet Take 1 tablet by mouth once daily. tiZANidine (ZANAFLEX) 2 mg tablet Take 1-2 tablets by mouth every 6 hours as needed. sildenafil (VIAGRA) 50 mg tablet Take 1-2 tablets by mouth once daily as needed. insulin glargine 100 unit/mL (3 mL) Inject 50 Units subcutaneously two times a day. or as directed insulin lispro (HUMALOG U-100 INSULIN) 100 unit/mL crtg Take 12 units with meals. Insulin Sliding Scale: BG 70-150, give 0 units; BG 151-180, give 4 units; BG 181-220, give 6 units; BG 221-260, give 8 units; BG 261-300, give 10 units; BG 301-340, give 12 units; BG 341-380, give 14 units and call provider. cyanocobalamin (VITAMIN B-12) 1,000 mcg tab Take 1 tablet by mouth once daily. Cholecalciferol, Vitamin D3, 125 mcg (5,000 unit) cap Take 1 capsule by mouth once daily. Blood-Glucose Sensor (Proxama G7 SENSOR) allyson Apply new sensor every ten (10) days. atorvastatin (LIPITOR) 20 mg tablet Take 1 tablet by mouth daily at bedtime. For cholesterol. lisinopril (ZESTRIL) 5 mg tablet Take 1 tablet by mouth once daily. metoprolol succinate ER (TOPROL XL) 50 mg 24 hr tablet Take 1 tablet by mouth once daily. terazosin (HYTRIN) 5 mg capsule Take 1 capsule by mouth daily at bedtime. omeprazole (PRILOSEC) 40 mg capsule Take 1 capsule by mouth two times a day. traZODone (DESYREL) 100 mg tablet Take 1 tablet by mouth daily at bedtime. sertraline (ZOLOFT) 50 mg tablet Take 1 tablet by mouth once daily. insulin needles, DISPOSABLE, (BD INSULIN PEN NEEDLE UF) 31 gauge x 5/16 Use to inject insulin as directed. Up to 5 daily injections Lancets lancets Choose lancets covered by insurance. Test blood sugar(s) 3 times daily. Dx: Type 2 DM - Uncontrolled E11.65 Insulin: Yes (Patient taking differently: Choose lancets covered by insurance. Test blood sugar(s) 3 times daily. Dx: Type 2 DM - Uncontrolled E11.65 Insulin: Yes) CPAP Autopap 5-20 cm H2O, Heat Humidity, suitable mask, [employer] supplies, opt Chinstrap, G47.33. (Patient not taking: Reported on 08/22/2023) Current Facility-Administered Medications Medication Dose Route Frequency perflutren lipid microspheres 1.3 mL in NaCl (PF) 0.9% 10 mL injection (DEFINITY) INTRAVENOUS DIRECTED PRN sodium chloride 0.9 % (flush) 10 mL (BD POSIFLUSH) 10 mL INTRAVENOUS DIRECTED PRN Review of Systems Objective BP 108/70 Pulse 78 Temp 36.1 C (96.9 F) Resp 18 Wt 125.6 kg (277 lb) SpO2 98% BMI 33.72 kg/m Physical Exam Musculoskeletal: Comments: Over right SI joint area is a mobile lump about golf ball size to a little larger. Tight muscles over right paravertebral muscles. Reviewed labs and CT abd/pel results from [facility] Assessment and Plan Encounter Diagnosis ICD-10-CM 1. Uncontrolled type 2 diabetes mellitus with hyperglycemia (HCC) E11.65 HEMOGLOBIN A1C empagliflozin (JARDIANCE) 10 mg tablet DISCONTINUED: empagliflozin (JARDIANCE) 10 mg tablet Need to keep working on diet and exercise to get sugars controlled, and adjust meds 2. Cervical spine pain M54.2 CONSULT TO [facility] XR CERV OTHER 4V AP/LAT/OBL CONSULT TO PHYSICAL THERAPY Referral as discussed to help with pain issues 3. Thoracolumbar back pain M54.50 CONSULT TO [facility] M54.6 XR THORACIC GENERAL 3V AP/LAT/SWIMMERS CONSULT TO PHYSICAL THERAPY Referral to spine center as discussed for management of pain issues from spine 4. DDD (degenerative disc disease), thoracolumbar M51.35 CON[facility]ULT TO [facility] XR THORACIC GENERAL 3V AP/LAT/SWIMMERS CONSULT TO PHYSICAL THERAPY Management of back pain associated DDD as discussed; consult to spine center 5. Essential hypertension I10 Continue control of BP wit current med management 6. Mixed hyperlipidemia E78.2 LIPID PANEL BASIC Monitor labs and adjust management as indicated 7. Vitamin D deficiency E55.9 VITAMIN D 25 HYDROXY Follow labs and adjust replacement as indicated 8. Lump of skin of back R22.2 CONSULT TO GENERAL SURGERY Lipomatous lump over right SI joint area; mobile, tender. Follow up with surgeon as needed for excision Above issues addressed with patient. Patient involved in shared decision making for management of medical issues. History and medications reviewed. Epic updated as needed Refills and/or prescriptions taken care of and meds adjusted as indicated after reviewed history, exam and labs. Health Maintenance reviewed. Updated record and/or ordered tests as recorded. Encouraged on efforts at healthy diet and regular exercise and adequate sleep. Michelle Jane MD documented in this encounter [facility] 11-11-2023 History of Present illness Narrative SUBJECTIVE Denver Hollingsworth is a 43 year old male here today for a check up on his medical problems. Chief Complaint Patient presents with: Erectile Dysfunction HPI Denver Hollingsworth is a 43 year old male. He is an established patient of Michelle Jane MD. Here today accompanied by his significant other. Concerns of issues with sexual function. Sex drive and interest is good. Trouble getting erection and maintaining erection. Working on control of DM. Blood sugars are 174 today. Issues with pain in his back. Goes down the left leg sometimes. Issues off and on with headaches, prior injections helpful. His medications were reviewed today and his list is now up to date. Medications Current Outpatient Medications Medication Sig metFORMIN (GLUCOPHAGE) 500 mg tablet Take 2 tablets by mouth two times a day with meals. insulin glargine 100 unit/mL (3 mL) Inject 50 Units subcutaneously two times a day. or as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 tablet^Take 50 mg by mouth daily at bedtime.^Disp: ^Rfl: colesevelam (WELCHOL) 625 mg tablet^Take 2 tablets by mouth twice daily with meals.^Disp: 120 tablet^Rfl: 5 (Patient not taking: Reported on 02/20/2023) promethazine (PHENERGAN) 25 mg tablet^Take 1 tablet by mouth every 6 hours as needed for nausea/vomiting.^Disp: 24 tablet^Rfl: 0 Blood-Glucose Sensor (Laboratory PartnersCOM G7 SENSOR) allyson^Apply new sensor every ten (10) days.^Disp: 9 Each^Rfl: 3 insulin needles, DISPOSABLE, (BD INSULIN PEN NEEDLE UF) 31 gauge x 5/16^Use to inject insulin as directed. Up to 5 daily injections^Disp: 100 Each^Rfl: 3 OXcarbazepine (TRILEPTAL) 300 mg tablet^Take 1 tablet by mouth twice daily.^Disp: 60 tablet^Rfl: 3 (Patient not taking: Reported on 02/20/2023) CPAP^Autopap 5-20 cm H2O, Heat Humidity, suitable mask, Lif[employer] supplies, opt Chinstrap, G47.33.^Disp: 1 Device^Rfl: 0 Lancets lancets^Choose lancets covered by insurance. Test blood sugar(s) 3 times daily. Dx: Type 2 DM - Uncontrolled E11.65 Insulin: Yes^Disp: 100 Each^Rfl: 11 (Patient taking differently: Choose lancets covered by insurance. Test blood sugar(s) 3 times daily. Dx: Type 2 DM - Uncontrolled E11.65 Insulin: Yes) PHYSICAL EXAM: BP 126/84 Pulse 82 Ht 193 cm (6' 4) Wt 121.6 kg (268 lb) BMI 32.62 kg/m Last 2 Encounter Wt Readings: Date: Wt: 02/20/2023 117.9 kg (260 lb) 02/12/2023 119.7 kg (264 lb) Awake, alert, oriented times 3. Patient is not in acute respiratory distress. SKIN: No petechial rash or ecchymosis noted. Head : Normocephalic. Face is symmetrical NECK: Supple. No JVD. No carotid bruit. No thyromegaly. ENT: Pharyngeal structures are not crowded and uvula is well visualized. Mallampati 2 LUNGS: Clear to auscultation bilaterally. CARDIAC: Normal S1 and S2, no systolic murmur. ABDOMEN: Soft, bowel sounds present. Positive for pain upon palpation EXTREMITIES: No cyanosis, clubbing, edema. PULSES: Peripheral pulses are palpable in DP and PT arteries. NEURO: Non-focal. Moves all extremities. Musculoskeletal: No significant deformities. Last Labs: I reviewed personally. Sodium Date Value Ref Range Status 11/14/2022 137 136 - 144 mmol/L Final Potassium Date Value Ref Range Status 11/14/2022 4.0 3.7 - 5.1 mmol/L Final Chloride Date Value Ref Range Status 11/14/2022 104 97 - 105 mmol/L Final CO2 Date Value Ref Range Status 11/14/2022 25 22 - 30 mmol/L Final Glucose Date Value Ref Range Status 11/14/2022 220 (H) 74 - 99 mg/dL Final Comment: The [place] [employer] (ADA) provides guidance for cutoff values for fasting glucose andrandom glucose. The ADA defines fasting as no caloric intake for at least 8 hours. Fasting plasma glucose results between 100 to 125 [...] Standards of Medical Care in Diabetes 2016, [place] [employer]. Diabetes Care. 2016.39(Suppl 1). BUN Date Value Ref Range Status 11/14/2022 11 9 - 24 mg/dL Final Creatinine Date Value Ref Range Status 11/14/2022 0.84 0.73 - 1.22 mg/dL Final Calcium, Total Date Value Ref Range Status 11/14/2022 9.3 8.5 - 10.2 mg/dL Final Albumin Date Value Ref Range Status 11/14/2022 4.4 3.9 - 4.9 g/dL Final Protein, Total Date Value Ref Range Status 11/14/2022 7.2 6.3 - 8.0 g/dL Final AST Date Value Ref Range Status 11/14/2022 17 14 - 40 U/L Final ALT Date Value Ref Range Status 11/14/2022 28 10 - 54 U/L Final Alkaline Phosphatase Date Value Ref Range Status 11/14/2022 106 38 - 113 U/L Final Bilirubin, Total Date Value Ref Range Status 11/14/2022 0.3 0.2 - 1.3 mg/dL Final Triglyceride Date Value Ref Range Status 08/14/2022 259 (H) <150 mg/dL Final Comment: <150 mg/dL, Normal 150-199 mg/dL, Borderline high 200-499 mg/dL, High >499 mg/dL, Very high Cholesterol, Total Date Value Ref Range Status 08/14/2022 141 <200 mg/dL Final Comment: <200 mg/dL, Desirable 200-239 mg/dL, Borderline high >239 mg/dL, High HDL Cholesterol Date Value Ref Range Status 08/14/2022 36 (L) >39 mg/dL Final Comment: 40-59 mg/dL, Acceptable >59 mg/dL, High: Negative risk factor for coronary heart disease <40 mg/dL, Low: Positive risk factor for coronary heart disease LDL Cholesterol Date Value Ref Range Status 08/14/2022 53 <100 mg/dL Final Comment: <100 mg/dL, Optimal 100-129 mg/dL, Near optimal/above optimal 130-159 mg/dL, Borderline high 160-189 mg/dL, High >189 mg/dL, Very high Secondary prevention optimal LDL Cholesterol levels are recommended to be < 70 mg/dL Cardiovascular Testing: I reviewed personally. I have personally reviewed the Electrocardiogram, Chest X-ray, Laboratory Testing. March 12, 2023 ECG Normal Sinus rhythm EKG showed normal sinus rhythm with no significant ST-T wave changes. IMPRESSION / RECOMMENDATIONS / PLAN: Encounter Diagnosis ICD-10-CM 1. Precordial pain R07.2 ECG COMPLETE ECHO 2. Anxiety and depression F41.9 F32.A 3. Bipolar affective disorder, currently manic, mild ([facility]) F31.11 4. PTSD (post-traumatic stress disorder) F43.10 5. Substance abuse ([facility]) F19.10 6. Obesity (BMI 30.0-34.9) E66.9 7. Essential hypertension I10 8. Mixed hyperlipidemia E78.2 9. BERYL (obstructive sleep apnea) G47.33 10. Tobacco use Z72.0 11. Encounter for screening for cardiovascular disorders Z13.6 CT CALCIUM SCORING SELF PAY ([place]) Preop examination -CT of chest for cardiac calcium scoring will be done to assess if there is any underlying coronaryatherosclerosis which will warrant further nuclear stress testing prior to his procedure. -Echocardiogram will be done to assess if he has any familial cardiomyopathy. If these 2 tests come back normal we will proceed with the pyloro-myotomy. Primary hypertension - continue on current medications Hyperlipidemia, unspecified hyperlipidemia type - continue on current medication Type 2 diabetes mellitus with other specified complication, with long-term current use of insulin (HCC) - History of chest pain at rest - we discussed that his pain is most likely from pleuritic chest pain and not cardiovascular in origin BERYL- discussed use of mandibular device Tobacco abuse. I gave him counseling for 3 minutes against smoking tobacco or any other drugs. Patient is counseled and educated about the symptoms and treatment plan. Doug Gordon MD, FACC. Injection Molding Machine Setter, Dept of Medicine, [facility]. Machinery Repair Maintenance Supervisor of Ambulatory Cardiology, [facility]. Machinery Repair Maintenance Supervisor of Cardiac Catheterization laboratory, [facility]. Asst. rack worker, [facility] and [facility] Staff Civil Structural Designer, [facility] [place] Department of Cardiovascular Medicine. By signing my name below, I, Wes Mobley, attest that this documentation has been prepared under the direction and the presence of Dr. Evan RAMIREZ. Electronically signed, Wes Mobley, Medical Student/Scribe March 12, 2023 8:06 AM documented in this encounterMercy Health [facility] Hospital09-06-2023 Miscellaneous Notes* Telephone Encounter - Lorie Doran LPN - 02/27/2023 10:50 AM EDT Called and spoke with patient regarding missed EKG appointment today. He states he forgot but his procedure was pushed back to the and he is seeing cardiology on 03/12/23 in [place]. I let patient know we will wait until he sees cardiology as they will probably do the EKG there. Lorie Doran LPN documented in this encounterMercy Health Willard Hospital09-01-2023 Miscellaneous Notes* Telephone Encounter - Rochelle Grajeda RN - 02/22/2023 3:00 PM EDT Called patient to delay upcoming elective procedure until after seen by cardiology Patient moved to 03/19/2023 Rochelle Grajeda RN February 22, 2023 3:04 PM * Telephone Encounter - Jeanette Adams RN - 02/22/2023 2:35 PM EDT Spoke with patient, scheduled with Dr. Gordon at [place] location 03/12/2023 for cardiac clearance. * Telephone Encounter - Virginia Longo PA-C - 02/22/2023 12:[address]T Good afternoon Dr. Huang, This patient was seen by me for virtual PACC for upcoming endoscopic per oral pyloromyotomy scheduled with you at [facility] on 03/05. He reports an episode of intense chest tightness that took his breath away and led him to bend over in discomfort. He mentioned his anxiety was through the roof at that time. He had not been taking any of his daily medications (for about 4 days) due to them being withheld by his soon-to-be ex-. He is back on his medication and feeling well, but the anesthesia team has requested that he see cardiology for consultation pre-op. Thus far, he has contacted [facility] and [facility] and has not been able to find an appointment. He said he's happy to go anywhere if we can find him an appointment. He lives in the [place] area. I am going to forward this encounter to see if [facility], [place] or [place] might have availability. Wanted to ensure you were aware of our concerns. Thank you for your time, Virginia Longo PA-C PACC documented in this encounterMercy Health Willard Hospital08-22-2023 Instructions* Patient Instructions* Britney Cervantes APRN.CNS - 02/12/2023 2:15 PM EDT Increase glargine insulin from 30 units twice daily to 32 units twice daily. Try home exercises for your back. Schedule an appointment with a spine provider. documented in this encounterMercy Health Willard Hospital08-22-2023 History of Present illness Narrative* Britney Cervantes APRN.CNS - 02/12/2023 1:40 PM EDT SUBJECTIVE: There are no preventive care reminders to display for this patient. HPI Denver Hollingsworth is a 42 year old male.PMH significant for ACTIVE PROBLEM LIST Attention Deficit Disorder Uncontrolled Type 2 Diabetes Mellitus With Hyperglycemia (Hcc) Essential Hypertension Beryl (Obstructive Sleep Apnea) Cavus Deformity of Foot, Acquired Cervicalgia Anxiety and Depression Mixed Hyperlipidemia Spinal Stenosis, Lumbar Region, Without Neurogenic Claudication Right Testicular Pain Tobacco Use Gastroesophageal Reflux Disease With Esophagitis Bipolar Disorder (Hcc) Substance Abuse (Hcc) Obesity (Bmi 30.0-34.9) Contusion of Unspecified Back Wall of Thorax, Initial Encounter Acute Laryngitis Acute Lumbosacral Myofascial Strain Back Contusion Chronic Back Pain Bronchitis Cervical Strain Cocaine Dependence With Intoxication (Hcc) Gallstone Pancreatitis Gastroesophageal Reflux Disease Hyperosmolar Non-Ketotic State in Patient With Type 2 Diabetes Mellitus (Hcc) Injury of Head Laceration of Leg, Right Nonspecific Colitis Orchitis and Epididymitis Ptsd (Post-Traumatic Stress Disorder) Viral Infection Belching Change in Bowel Habits Early Satiety History of Cocaine Use Nausea and Vomiting Gastroparesis Due to Secondary Diabetes (Hcc) HPI excerpted from previous visits: Presents today for follow-up visit. Last seen 09/2020. He notes not having insurance coverage. Unable to afford insulin, purchasing the $30 or vials. States he is taking 25 to 26 units of long-acting insulin daily. States taking all oral medications, able to pay out of pocket for all of these for about $73 per month. Notes going to 180 for counsleing. No recent psychiatry visit. Notes needing medication for sleep; took trazodone in the past which seemed to help. Prior right testicular pain noted 2018, has not yet had planned surgery due to uncontrolled diabetes mellitus. Since last seen by me he was admitted to [facility] for PTSD September 22, 2021. He had a follow-up visit with Michelle Jane MD Nov 15 2021. He was referred to structured diabetes program but did not schedule follow-up appointment. He was seen at [facility] ER December 12 for chest pain abdominal pain nausea vomiting and diarrhea. He was noted to have acute laryngitis acute epididymoorchitis and back contusion. Presents today noting he is going to detention in March. Notes abnormal movements of arms in evening x 2 weeks. He reports current psychiatric medications, these were ordered during psychiatric hospital admission. Not currently seeing psychiatric provider. He reports taking medications as ordered however no recent refills of routine medications noted in epic review of outside meds. Since last seen he has had PharmD. appointments regarding diabetes. He was seen by Dr. Smiley ophthalmology August 2022. Social work contacted him about possibly losing Medicaid. He was seen at [facility] November 13, 2022 for kidney stones. OSH notes indicate CT showed evidence consistent with passing recent kidney stone with mild right hydronephrosis and hydroureter and mild inflammation. Follow-up with urology recommended. Noted Dr Helms did not take his insurance. He was seen November 23, 2022 regarding endoscopy. He noted dysphagia, nausea vomiting frequent belchingearly satiety and bloating. He reported only tolerating soup and liquids. Prior history of H. pylori that was treated. Noted constipation. Previous EGD and colonoscopy was in [address] Jackson. He underwent endoscopy on November 29, 2022, EGD and colonoscopy at [facility]. Noted to have hiatal hernia reactive gastropathy and hemorrhoids. Negative for H. pylori. He noted symptoms continued with no changes following testing. He was referred to gastroenterology, Dr. Couch. Office visit December 14, 2022. Ordered gastric emptying and esophagram and esophageal manometry. He was found to have gastroparesis likely due to diabetes. He was started on metoclopramide before meals. He was referred to surgery to discuss cutting pylorus valve (POP surgery). Unable to complete manometry. Offered follow-up be if he would like to repeat. Seen by surgeon Dr Huang 01/30/2023, surgery planned. Today reports self decreasing glargine insulin dose from 50 units twice daily to 30 units twice daily due to lower blood sugars. He reports his meter reader chief advised him to stay on Trulicity and not start Ozempic. He reports Reglan did not seem to do much to help gastroparesis. DIABETES MELLITUS: He reports blood sugars at home of been in better control. He reports average blood sugar on his Dexcom for the last 2 weeks was 189. Without report of excessive thirst or increased frequency of urination, chest pain or dyspnea , numbness, tingling or pain in extremities, new or unusual visual symptoms, low sugar/hypoglycemic reactions, weight loss/gain, lightheadedness/dizziness and bowel changes/loose stools. Tries to stick with a diabetic diet. Patient's last HgA1C was Hemoglobin A1C (%) Date Value 11/14/2022 7.6 08/14/2022 10.2 09/19/2020 12.7 01/19/2019 12.0 Hemoglobin A1C (POCT) (%) Date Value 08/03/2019 10.4 ) Hyperlipidemia. Mr. Hollingsworth reports doing well on current therapy His most recent lipid panels are: Cholesterol, Total (mg/dL) Date Value 08/14/2022 141 08/28/2021 179 09/19/2020 542 10/20/2018 235 HDL Cholesterol (mg/dL) Date Value 08/14/2022 36 08/28/2021 34 09/19/2020 12 10/20/2018 23 LDL Cholesterol (mg/dL) Date Value 08/14/2022 53 08/28/2021 96 09/19/2020 Unable to calculate due to increased Triglycerides. See LDL-Chol, Direct. 10/20/2018 Unable to calculate due to increased Triglycerides. See LDL-Chol, Direct. Triglyceride (mg/dL) Date Value 08/14/2022 259 08/28/2021 244 09/19/2020 4,520 10/20/2018 1,339 HTN: Without report of chest pain, palpitations, dyspnea, peripheral edema, orthopnea, fatigue and PND. Last 14 Encounter BP Readings: Date: BP: 02/12/2023 131/92 01/30/2023 166/103 12/14/2022 134/93 12/05/2022 132/84 11/29/2022 117/81 11/29/2022 115/84 11/23/2022 132/84 11/14/2022 120/86 11/06/2022 108/62 08/14/2022 124/84 06/04/2022 132/92 04/25/2022 129/85 02/06/2022 146/92 11/15/2021 142/90 Review of Systems Constitutional: Negative. Respiratory: Negative. Cardiovascular: Negative. Endocrine: Negative. Objective BP 131/92 Pulse 98 Resp 16 Wt 119.7 kg (264 lb) BMI 32.14 kg/m Physical Exam Vitals and nursing note reviewed. Constitutional: Appearance: Normal appearance. HENT: Head: Normocephalic. Right Ear: Tympanic membrane and ear canal normal. Mouth/Throat: Mouth: Mucous membranes are moist. Pharynx: Oropharynx is clear. No oropharyngeal exudate or posterior oropharyngeal erythema. Eyes: Conjunctiva/sclera: Conjunctivae normal. Neck: Thyroid: No thyromegaly. Vascular: No carotid bruit. Cardiovascular: Rate and Rhythm: Normal rate and regular rhythm. Pulses: Carotid pulses are 2+ on the right side and 2+ on the left side. Radial pulses are 2+ on the right side and 2+ on the left side. Dorsalis pedis pulses are 2+ on the right side and 2+ on the left side. Heart sounds: Normal heart sounds. Pulmonary: Effort: Pulmonary effort is normal. Breath sounds: Normal breath sounds. Abdominal: General: Bowel sounds are normal. There is no distension. Palpations: Abdomen is soft. There is no mass. Tenderness: There is no abdominal tenderness. There is no guarding. Musculoskeletal: Right lower leg: No edema. Left lower leg: No edema. Lymphadenopathy: Cervical: Right cervical: No superficial cervical adenopathy. Skin: General: Skin is warm and dry. Neurological: Mental Status: He is alert. Mental status is at baseline. ALLERGIES Allergen Reactions Fibrate Anti-Lipide* Myalgia Hydrocodone Bitartr* GI Upset Vicodin [Hydrocodon* GI Upset Medications insulin glargine 100 unit/mL (3 mL) Inject 32 Units subcutaneously twice daily. or as directed omeprazole (PRILOSEC) 40 mg capsule Take 1 capsule by mouth twice daily. metoclopramide HCl (REGLAN) 5 mg tablet Take 1 tablet by mouth three times daily. 30 min before meals atorvastatin (LIPITOR) 20 mg tablet Take 1 tablet by mouth daily at bedtime. For cholesterol. topiramate (TOPAMAX) 25 mg tablet Take 50 mg by mouth daily at bedtime. colesevelam (WELCHOL) 625 mg tablet Take 2 tablets by mouth twice daily with meals. promethazine (PHENERGAN) 25 mg tablet Take 1 tablet by mouth every 6 hours as needed for nausea/vomiting. dulaglutide (TRULICITY) 3 mg/0.5 mL pen injector Inject 3 mg subcutaneously one time a week. Blood-Glucose Sensor (Proxama G7 SENSOR) allyson Apply new sensor every ten (10) days. buPROPion XL (WELLBUTRIN XL) 150 mg 24 hr tablet Take 150 mg by mouth once daily. Prescribed by psychiatrist insulin needles, DISPOSABLE, (BD INSULIN PEN NEEDLE UF) 31 gauge x 5/16 Use to inject insulin as directed. Up to 5 daily injections sertraline (ZOLOFT) 50 mg tablet Take 1 tablet by mouth once daily. OXcarbazepine (TRILEPTAL) 300 mg tablet Take 1 tablet by mouth twice daily. metFORMIN (GLUCOPHAGE) 500 mg tablet Take 2 tablets by mouth twice daily with meals. insulin lispro (HUMALOG U-100 INSULIN) 100 unit/mL crtg Take 12 units with meals. Insulin Sliding Scale: BG 70-150, give 0 units; BG 151-180, give 4 units; BG 181-220, give 6 units; BG 221-260, give 8 units; BG 261-300, give 10 units; BG 301-340, give 12 units; BG 341-380, give 14 units and call provider. CPAP Autopap 5-20 cm H2O, Heat Humidity, suitable mask, [employer] supplies, opt Chinstrap, G47.33. Lancets lancets Choose lancets covered by insurance. Test blood sugar(s) 3 times daily. Dx: Type 2 DM - Uncontrolled E11.65 Insulin: Yes (Patient taking differently: Choose lancets covered by insurance. Test blood sugar(s) 3 times daily. Dx: Type 2 DM - Uncontrolled E11.65 Insulin: Yes) terazosin (HYTRIN) 5 mg capsule Take 1 capsule by mouth daily at bedtime. traZODone (DESYREL) 100 mg tablet Take 1 tablet by mouth daily at bedtime. metoprolol succinate ER (TOPROL XL) 50 mg 24 hr tablet Take 1 tablet by mouth once daily. lisinopril (ZESTRIL) 5 mg tablet Take 1 tablet by mouth once daily. semaglutide (OZEMPIC) 0.25 mg or 0.5 mg (2 mg/3 mL) pen Inject 0.5 mg subcutaneously one time a week. ON HOLD as of 09/20/22 while still taking Trulicity (Patient not taking: Reported on 02/12/2023) 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 of hyperactivity diagnosed in childhood Back pain 02/12/2012 Bile acid esophageal reflux 11/14/2022 Bipolar disorder (HCC) Chronic post-traumatic headache Closed fracture of dorsal (thoracic) vertebra without mention of spinal cord injury 04/03/2012 Corns and callosities 12/05/2009 Depressive disorder, not elsewhere classified 06/10/2012 DIABETES MELLITUS TYPE II-UNCOMPL 08/30/2008 Dysmetabolic syndrome X 07/21/2008 Gastroesophageal reflux disease with esophagitis Hydronephrosis 11/13/2022 Mild right Nonspecific abnormal results of liver function study 04/06/2005 Ferritin 225, HBsAg and Hep C negative in 10-30 U/S Fatty Liver BERYL (obstructive sleep apnea) DME [facility] Respiratory Pain in joint, lower leg 06/05/2012 Right testicular pain 09/15/2021 Substance abuse (HCC) Tobacco use Unspecified essential hypertension 08/30/2008 Social History Tobacco Use Smoking status: Every Day Packs/day: .5 Types: Cigarettes Start date: 08/11/1995 Smokeless tobacco: Never Vaping Use Vaping Use: Never used Substance Use Topics Alcohol use: No Drug use: Not Currently Types: Cocaine Comment: reports a history of cocaine use, denies any recent Component Latest Ref Rng & Units 02/06/2022 08/14/2022 11/14/2022 WBC 3.70 - 11.00 k/uL 12.69 (H) RBC 4.20 - 6.00 m/uL 5.22 Hemoglobin 13.0 - 17.0 g/dL 15.8 Hematocrit 39.0 - 51.0 % 42.8 MCV 80.0 - 100.0 fL 82.0 MCH 26.0 - 34.0 pg 30.3 MCHC 30.5 - 36.0 g/dL 36.9 (H) RDW-CV 11.5 - 15.0 % 13.1 Platelet Count 150 - 400 k/uL 175 MPV 9.0 - 12.7 fL 10.9 NRBC /100 WBC 0.0 Absolute nRBC <0.01 k/uL <0.01 Neut% % 52.0 Abs Neut (ANC) 1.45 - 7.50 k/uL 6.60 Lymph% % 25.0 Abs Lymph 1.00 - 4.00 k/uL 3.17 Meriwether% % 6.0 Abs Meriwether <0.87 k/uL 0.76 Eosin% % 17.0 Abs Eosin <0.46 k/uL 2.16 (H) Baso% % 0.0 Abs Baso <0.11 k/uL 0.00 Platelet Estimate Adequate Red Cell Morph Reviewed: unremarkable DTYPE Manual Protein, Total 6.3 - 8.0 g/dL 7.6 7.2 Albumin 3.9 - 4.9 g/dL 4.8 4.4 Calcium 8.5 - 10.2 mg/dL 10.1 9.3 Bilirubin, Total 0.2 - 1.3 mg/dL 0.4 0.3 Alkaline Phosphatase 38 - 113 U/L 86 106 AST 14 - 40 U/L 29 17 ALT 10 - 54 U/L 38 28 Glucose 74 - 99 mg/dL 105 (H) 220 (H) BUN 9 - 24 mg/dL 12 11 Creatinine 0.73 - 1.22 mg/dL 0.83 0.84 Sodium 136 - 144 mmol/L 136 137 Potassium 3.7 - 5.1 mmol/L 4.3 4.0 Chloride 97 - 105 mmol/L 99 104 CO2 22 - 30 mmol/L 28 25 Anion Gap 9 - 18 mmol/L 9 8 (L) eGFR >=60 mL/min/1.73m 112 112 Cholesterol, Total <200 mg/dL 141 Triglyceride <150 mg/dL 259 (H) HDL Cholesterol >39 mg/dL 36 (L) Non HDL Cholesterol <130 mg/dL 105 Fasting Time hrs 13 VLDL Cholesterol <30 mg/dL 52 (H) TC:HDL Ratio <5.10 3.92 LDL Cholesterol <100 mg/dL 53 LDL:HDL Ratio <2.54 1.47 HIV 12 Combo (Ag/Ab) Nonreactive Nonreactive HIV 1/2 Ab HIV Interpretation Creatinine, Ur Random (UCRR) 20.0 - 300.0 mg/dL 218.3 Albumin, Urine Random mg/L 195.3 Albumin/Creat Ratio <30 mg/g 89 (H) Hemoglobin A1C 4.3 - 5.6 % 7.9 (H) 10.2 (H) 7.6 (H) Estimated Average Glucose mg/dL 180 246 171 Lipase 16 - 61 U/L 27 Amylase 30 - 104 U/L 40 ASSESSMENT/PLAN: 1. Lumbar back pain - ICD9: 724.2, ICD10: M54.50 (primary diagnosis) - CONSULT TO [facility] FOR HANDICAPPED 2. Kidney stones - ICD9: 592.0, ICD10: N20.0 - TERAZOSIN 5 MG CAPSULE 3. Bipolar affective disorder, current episode mixed, current episode severity unspecified (HCC) - ICD9: 296.60, ICD10: F31.60 - TRAZODONE 100 MG TABLET 4. Primary insomnia - ICD9: 307.42, ICD10: F51.01 - TRAZODONE 100 MG TABLET 5. Uncontrolled type 2 diabetes mellitus with hyperglycemia (HCC) - ICD9: 250.02, ICD10: E11.65 Significantly improved control. Self decreased glargine insulin from 50 units twice daily to 30 units twice daily due to decreased numbers, low readings down to 60. Currently reports average glucose reading for the last weeks 189. Recommend increase glargine from 30 to 32 units twice daily. - HGB A1C - today - ATORVASTATIN 20 MG TABLET 6. Encounter for immunization - ICD9: V03.89, ICD10: Z23 Keep April appt with Kaylee Cervantes APRN.CHILD & ADOLESCENT PSYCHIATRIST Medical Decision Making: Problems: Moderate: 2+ stable chronic illnesses Data: Unique test(s) ordered: 1 Risk: Moderate: Drug management Medical Decision Making Level: 4 - Moderate documented in [facility] encounterMer[facility] Miscellaneous Notes* Telephone Encounter - Alton LaneGolimiAmanda Cavazos - 02/01/2023 2:58 PM EDT Patient contacted pharmacy team and is asking for a refill on this medication. Pended refill and pharmacy confirmed. Patient's request for medication is as follows: Requested Prescriptions Pending Prescriptions Disp Refills omeprazole (PRILOSEC) 40 mg capsule 60 capsule 3 Sig: Take 1 capsule by mouth twice daily. Prescription(s) as above. Please process accordingly. Amanda Dang (Golimi) documented in this encounterMer[facility]08-09-2023 History of Present illness Narrative* Jami Benavides, PhD - 01/30/2023 4:28 PM EDT Behavioral Medicine [facility] [place] Name: Denver oHllingsworth MR#: [id number] Date: 01/30/2023 Time: hour Referred by: Dr. Huang Reason for Referral: address psychological factors as they affect physical condition Information relayed back to referral source via electronic medical record His chart was reviewed and he gave his own history. He was seen with his who left about way through. In addition to is GI issues he still has chronic LBP and says he has been told by his chiropractor that he needs surgery. We discussed a possible second opinion from [facility]. We discussed his sobriety- he has not used for 4 months. He does not use when he is with is but if he leaves home he relapses. He has support from a therapist locally. They both think his mood is stable now with new medications including Wellbutrin, Zoloft, Topamax, and trazodone. The basic principles of the brain gut connection were explored. Emphasis was placed on the effects of stress and emotions on physiology. He discussed ways in which his medical condition had had an effect on his life. He was given information about ways to mediate his emotional and physiological response. He was introduced to relaxation training. He was given the website for the [facility] and shown the relaxation recordings with the recommendation to practice this and the rationale behind their use. He was told he can return at any time. Jami Pond, Ph.D. documented in this encounterMercy [facility]08-09-2023 History of Present illness Narrative* Rochelle Grajeda RN - 01/30/2023 12:06 PM EDT patient scheduled for POP post op scheduled aware of need for [facility] pre and post POP instructions discussed in detail with written copy provided Rochelle Grajeda RN January 30, 2023 12:06 PM * Ilya Huang MD - 01/30/2023 11:40 AM EDT Assessment ASSESSMENT 42 year old male with medical refractory gastroparesis. PLAN I discussed surgical therapy for gastroparesis in detail. Denver Hollingsworth is candidate for diet modification and POP (Per-Oral Pyloromyotomy). Given information about both The patient was warned about possible complications from the POP procedure including but not limited to increased nausea, vomiting, bloating, abdominal pain, ulcers and bleeding, increased diarrhea to the point of urgency or even stool incontinence, and finally gastric perforation. They agree to proceed with the procedure. I spent a total of 45 minutes on the date of the service which included preparing to see the patient, [id number] patient care, completing clinical documentation, performing a medically appropriate examination, counseling and educating the patient/family/caregiver, ordering medications, tests, or p rocedures, independently interpreting results (not separately reported), and communicating results to the patient/family/caregiver. NAME: Denver Hollingsworth CLINIC NO: [id number] DATE OF SERVICE: January 29, 2023 This is an initial consultation for Denver Hollingsworth who was referred to me by Dr. Rosalio Couch for evaluation of medical refractory gastroparesis. My final recommendation will be communicated via shared electronic medical record. CHIEF COMPLAINT DM Gastroparesis HISTORY OF PRESENT ILLNESS Denver Hollingsworth is a 42 year old male who comes in today for surgical evaluation for management ofgastroparesis. The patient has been evaluated thoroughly including an EGD, and gastric emptying study. 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 Every morning - coffee, cigarette, vomit dinner, then eats breakfast Last HgA1c - 7.6 last, highest was >10 but better now on Trulicity (for a couple of years now) Duration of symptoms (months): Whole life but last 3-4 months worse, GERD, N/V, belching Weight changes in last 3 months: Lost 50lbs GERD: Heartburn Dysphagia: Sometimes a dry meat only Bowel Movements: Used to be 3-4 per day, now only 1 per day, no meds, not hard, sometimes just water Pain: Cramping generalized, all the time Narcotics: No Smoking/Vaping: Smoke, 1/2-3/4 ppd THC: No Previous surgery: Cholecystectomy 2017 Previous Feeding tube(s): No Date of Last EGD: 11/29/2022 Dr Magaly Burgos EGD with Botox: No - If so, how long did it last: NA Exercise: No Job/Edu/Retired/Disability: Used to have a [employer] Esophagram 01/17/23 LARGE VOLUME GASTROESOPHAGEAL REFLUX. MILD NONSPECIFIC DYSMOTILITY. Gastric Emptying Study Results (01/03/2023) 1 Hour = 99% Retained 2 Hour = 91% Retained 4 Hour = 90% Retained SMART Pill (None) None Gastroparesis cardinal symptom index 1. nausea 3 2. retching 2 3. vomiting 5 4. stomach fullness 5 5. not able to finish a normal-sized meal 5 6. feeling excessively full after meals 5 7. loss of appetite 5 8. bloating (feeling like you need to loosen your clothes) 5 9. stomach or belly visibly larger 2 GCSI - 3.94 Scale (0-none; 1-very mild; 2-mild; 3-moderate; 4-severe; 5-very severe) PAST HISTORY 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 of hyperactivity diagnosed in childhood Back pain 02/12/2012 Bile acid esophageal reflux 11/14/2022 Bipolar disorder (HCC) Chronic post-traumatic headache Closed fracture of dorsal (thoracic) vertebra without mention of spinal cord injury 04/03/2012 Corns and callosities 12/05/2009 Depressive disorder, not elsewhere classified 06/10/2012 DIABETES MELLITUS TYPE II-UNCOMPL 08/30/2008 Dysmetabolic syndrome X 07/21/2008 Gastroesophageal reflux disease with esophagitis Hydronephrosis 11/13/2022 Mild right Nonspecific abnormal results of liver function study 04/06/2005 Ferritin 225, HBsAg and Hep C negative in 10-30 U/S Fatty Liver BERYL (obstructive sleep apnea) DME [facility] Respiratory Pain in joint, lower leg 06/05/2012 Right testicular pain 09/15/2021 Substance abuse (HCC) Tobacco use Unspecified essential hypertension 08/30/2008 PAST SURGICAL HISTORY Procedure Laterality Date CHOLECYSTECTOMY 2017 COLONOSCOPY 07/29/2013 Normal COLONOSCOPY 11/29/2022 EGD 11/29/2022 ESOPHAGOGASTRODUODENOSCOPY TRANSORAL DIAGNOSTIC 07/29/2013 H Pylori Gastritis, Gastric cardia type mucosa w/chronic inflammation UNSPECIFIED ORAL SURGERY PROCEDURE, BY REPORT tooth extraction. FAMILY HISTORY Problem Relation Age of Onset Hypertension Mother COPD Mother Diabetes Father Coronary Artery Disease Father Bypass surgery and [place] 2012 Heart Father Heart Brother other (Diverticulitis) Brother Primary Biliary Cirrhosis Brother No Known Problems Maternal Grandmother Cancer Maternal Grandfather unknown No Known Problems Paternal Grandmother Diabetes Paternal Grandfather Colon Cancer No Family History Social History Tobacco Use Smoking status: Every Day Packs/day: 0.50 Types: Cigarettes Start date: 08/11/1995 Smokeless tobacco: Never Vaping Use Vaping Use: Never used Substance Use Topics Alcohol use: No Drug use: Not Currently Types: Cocaine Comment: reports a history of cocaine use, denies any recent Current Outpatient Medications on File Prior to Visit Medication Sig metoclopramide HCl (REGLAN) 5 mg tablet Take 1 tablet by mouth three times daily. 30 min before meals terazosin (HYTRIN) 5 mg capsule Take 1 capsule by mouth daily at bedtime. atorvastatin (LIPITOR) 20 mg tablet Take 1 tablet by mouth daily at bedtime. For cholesterol. metoprolol succinate ER (TOPROL XL) 50 mg 24 hr tablet Take 1 tablet by mouth once daily. omeprazole (PRILOSEC) 40 mg capsule Take 1 capsule by mouth twice daily. topiramate (TOPAMAX) 25 mg tablet Take 50 mg by mouth daily at bedtime. colesevelam (WELCHOL) 625 mg tablet Take 2 tablets by mouth twice daily with meals. promethazine (PHENERGAN) 25 mg tablet Take 1 tablet by mouth every 6 hours as needed for nausea/vomiting. lisinopril (ZESTRIL) 5 mg tablet Take 1 tablet by mouth once daily. dulaglutide (TRULICITY) 3 mg/0.5 mL pen injector Inject 3 mg subcutaneously one time a week. semaglutide (OZEMPIC) 0.25 mg or 0.5 mg (2 mg/3 mL) pen Inject 0.5 mg subcutaneously one time a week. ON HOLD as of 09/20/22 while still taking Trulicity (Patient not taking: Reported on 11/06/2022) insulin glargine 100 unit/mL (3 mL) Inject 50 Units subcutaneously twice daily. Blood-Glucose Sensor ([employer] G7 SENSOR) allyson Apply new sensor every ten (10) days. buPROPion XL (WELLBUTRIN XL) 150 mg 24 hr tablet Take 150 mg by mouth once daily. Prescribed by psychiatrist insulin needles, DISPOSABLE, (BD INSULIN PEN NEEDLE UF) 31 gauge x 11/06 Use to inject insulin as directed. Up to 5 daily injections sertraline (ZOLOFT) 50 mg tablet Take 1 tablet by mouth once daily. OXcarbazepine (TRILEPTAL) 300 mg tablet Take 1 tablet by mouth twice daily. metFORMIN (GLUCOPHAGE) 500 mg tablet Take 2 tablets by mouth twice daily with meals. traZODone (DESYREL) 100 mg tablet Take 1 tablet by mouth daily at bedtime. insulin lispro (HUMALOG U-100 INSULIN) 100 unit/mL crtg Take 12 units with meals. Insulin Sliding Scale: BG 70-150, give 0 units; BG 151-180, give 4 units; BG 181-220, give 6 units; BG 221-260, give 8 units; BG 261-300, give 10 units; BG 301-340, give 12 units; BG 341-380, give 14 units and call provider. CPAP Autopap 5-20 cm H2O, Heat Humidity, suitable mask, Lifetime supplies, opt Chinstrap, G47.33. (Patient not taking: No sig reported) Lancets lancets Choose lancets covered by insurance. Test blood sugar(s) 3 times daily. Dx: Type 2 DM - Uncontrolled E11.65 Insulin: Yes (Patient taking differently: Choose lancets covered by insurance. Test blood sugar(s) 3 times daily. Dx: Type 2 DM - Uncontrolled E11.65 Insulin: Yes) No current facility-administered medications on file prior to visit. REVIEW OF SYSTEMS: General: No weight loss, malaise or fevers. Neuro: See HPI Respiratory: No history of current cough or dyspnea, or pneumonia in the past 6 weeks. No history of respiratory/pulmonary symptoms or problems Cardiovascular: Positive for: Hypertension GI: See HPI : Nephrolithiasis Endocrine: Diabetes Mellitus on insulin Hematology: No history of bleeding or clotting disorder. Pt is not taking anti- coagulation or platelet medications. No history of hematological symptoms or problems. Oncology: See HPI Psych: See HPI Musculoskeletal: Negative for joint pain or swelling, back pain or muscle pain. Skin: Negative for lesions, rash and itching. Physical Exam BP 166/103 (BP Site: Left Arm, BP Position: Sitting, BP Cuff Size: Large Adult) Pulse 91 Ht 193cm (6' 4) Wt 124 kg (273 lb 5.9 oz) BMI 33.28 kg/m Gen - NAD Cervical - No Cervical LN, normal ROM HEENT - Anicteric sclera, MMM CV - RRR Pulm - CTAB Abd - Soft, ND, NT Ext - No LE Edema documented in this encounterMer[facility]07-27-[facility] History of Present illness Narrative* Joey Dent LPN - 01/17/2023 10:47 AM EDT Patient cancelled esophageal manometry procedure. After one attempt to place manometry catheter in left nares, resistance was met, patient was tod that right nares will be used and patient stated Cody'm not doing this again, patient was walked back to waiting area. documented in this encounterMer[facility]07-27-2023 History of Present illness Narrative* Amanda Gould RT(R) - 01/17/2023 10:00 AM EDT Radiology Service Progress Note PATIENT NAME: Denver Hollingsworth DATE OF SERVICE: January 17, 2023 TIME: 10:27 AM PATIENT IDENTITY VERIFICATION COMPLETED USING TWO (2) IDENTIFIERS: Name and Date of confirmedby patient verbally. FALL SCREENING: Has the patient had 2 falls in the last year or 1 fall with injury or currently using an Ambulatory Assistive Device (Walker, Cane, Wheelchair, Crutches, etc.)? No PATIENT GENDER DATA: Male PATIENT RELEVANT IMPLANT DATA REVIEWED: Yes RADIOLOGY DEPARTMENT: General X-ray: Exam(s) Completed: GI/ Procedure(s): Esophogram with barium contrast PERIPHERAL IV DATA: Not applicable SIGNED BY: RT Brenda(R) January 17, 2023 10:27 AM documented in this encounterMercy [facility]07-13-2023 Miscellaneous Notes* Telephone Encounter - Rosalio Couch MD - 01/03/2023 3:31 PM EDT Thank you so much. That is exactly why I started him at 5mg TID * Telephone Encounter - Bianca Begum RPh - 01/03/2023 2:23 PM EDT Noted drug interactions with Metoclopramide in combination with bupropion or sertraline. Concurrent use of metoclopramide and bupropion Interaction: CYP2D6 Inhibitors (Strong) may increase the serum concentration of Metoclopramide. For the treatment of diabetic gastroparesis: Reduce metoclopramide dose to 5 mg 4 times daily (30 minutes before each meal and at bedtime) and limit the maximum daily dose to 20 mg if combined with strong CYP2D6 inhibitors. Concurrent use of metoclopramide and sertraline Interaction: Metoclopramide may enhance the serotonergic effect of Serotonergic Agents (High Risk).This could result in serotonin syndrome Patient Management: Consider monitoring for signs and symptoms of serotonin syndrome/serotonin toxicity (eg, hyperreflexia, clonus, hyperthermia, diaphoresis, tremor, autonomic instability, mental status changes) when these drugs are combined Summary: ok to take as prescribed. Dose of metoclopramide started by Gastroenterology is low and should minimize potential drug interaction. Patient has been counseled by GI doctor about side effectsto monitor for. Called and communicated above with patient, he verbalized understanding. Bianca Begum, PharmD, BCACP Primary Care Clinical Pharmacist * Telephone Encounter - Alton (Assistant Credit Manager)Amanda - 01/03/2023 2:13 PM EDT Patient contacted the Pharmacy Patient Assistance Team regarding proof of income document needed for the application and stated he has a question regarding his medications. Patient was just started on metoclopramide to help with gastroparesis. He would like to know if this will interact or interfere with any of his medications, particularly his DM medications. Routing to the pharmacist that he will be seeing, Bianca, to advise. Thank you, Amanda Dang CPhT. Pharmacy Patient Assistance Team documented in this encounterMercy [facility]07-13-2023 History of Present illness Narrative* Indu Leger RT(R) - 01/03/2023 8:30 AM EDT RADIOLOGY SERVICE PROGRESS NOTE SERVICE DATE: 01/03/2023 SERVICE TIME: 10:37 AM PATIENT IDENTITY VERIFICATION COMPLETED USING TWO (2) STANDARD IDENTIFIERS: Name and Date of confirmed by patient verbally and Name and Date of confirmed by identification band FALL SCREENING: Has the patient had 2 falls in the last year or 1 fall with injury or currently using an Ambulatory Assistive Device (Walker, Cane, Wheelchair, Crutches, etc.)? No PATIENT GENDER DATA: .male : No ALLERGIES: Reviewed and unchanged MEDICATIONS REVIEWED: No PATIENT RELEVANT IMPLANT DATA REVIEWED: Not Applicable CREATININE: Creatinine Date Value Ref Range Status 11/14/2022 0.84 0.73 - 1.22 mg/dL Final 08/14/2022 0.83 0.73 - 1.22 mg/dL Final 08/28/2021 0.66 (L) 0.73 - 1.22 mg/dL Final Estimated Glomerular Filtration Rate Date Value Ref Range Status 11/14/2022 112 >=60 mL/min/1.73m Final Comment: Estimated Glomerular Filtration Rate (eGFR) is calculated using the 2020 CKD-EPI creatinine equation. This equation utilizes serum creatinine, sex, and age as parameters. The creatinine assay has traceable calibration to isotope dilution- mass spectrometry. Refer to KDIGO guidelines for clinical interpretation. In patients with unstable renal function, e.g. those with acute kidney injury, the eGFRmay not accurately reflect actual GFR. eGFR- Date Value Ref Range Status 09/19/2020 >60 Final P.O.C.T. RESULTS: N/A January 03, [address] PERFORMED: No IV SITE: [place] only - not applicable, oral or physician administered agents given to patient POST EXAM PIV STATUS: Not applicable PROCEDURE TYPE: NM GET: 1.0 mCi Tc99m SULFUR COLLOID was administered orally via 4 ounces of Egg Beaters,2 pieces of toast, 1 ounce of jelly with 8 ounces of water orally ADMINISTRATION TIME: 8:16am PATIENT DISCHARGED TO: Ambulatory patient, left [place] department area. A Diagnostic radioactive procedure has taken place, with no further precautions necessary other than routine body substance precautions. More information regarding radiation safety can be found usingthis link: [email or web address] SIGNATURE: RT Perlita(R) PATIENT NAME: Denver Hollingsworth DATE: January 03, 2023 TIME: 10:37 AM PAGER/CONTACT #: documented in this encounterMercy [facility]06-29-2023 Miscellaneous Notes* Telephone Encounter - Nidia Grier RN - 12/20/2022 8:21 AM EDT Patient has been identified by name and date of : Yes, Nidia Grier RN Date 12/20/2022 Time 8:26 am Patient phones for refill(s): Requested Prescriptions Pending Prescriptions Disp Refills terazosin (HYTRIN) 5 mg capsule 30 capsule 0 Sig: Take 1 capsule by mouth daily at bedtime. atorvastatin (LIPITOR) 20 mg tablet 30 tablet 3 Sig: Take 1 tablet by mouth daily at bedtime. For cholesterol. metoprolol succinate ER (TOPROL XL) 50 mg 24 hr tablet 30 tablet 2 Sig: Take 1 tablet by mouth once daily. Patient asking Kaylee if he should continue with taking the terazosin (replaced Flomax d/t preferred by insurance) Date of last office visit with pcp: 11/14/2022 Future appt: 02/12/2023 Last 2 Encounter Wt Readings: Date: Wt: 12/14/2022 122 kg (269 lb) 12/05/2022 123.1 kg (271 lb 6.4 oz) Previous labs/tests for medication: Blood Pressure: BUN (mg/dL) Date Value 11/14/2022 11 09/19/2020 9 Sodium (mmol/L) Date Value 11/14/2022 137 09/19/2020 130 Last 1 Encounter BP Readings: Date: BP: 12/14/2022 134/93 Liver Function: ALT (U/L) Date Value 11/14/2022 28 09/19/2020 22 AST (U/L) Date Value 11/14/2022 17 09/19/2020 22 Please advise. Thank you. Nidia Grier RN documented in this encounterMer[facility]06-28-2023 History of Present illness Narrative* Amanda LaneGolimi) - 12/19/2022 11:48 AM EDT Ge[employer] message sent to patient 12/19/22 (within this encounter) to check status of proof of incomeneeded for patient assistance documents. Amanda LaneGolimi) December 19, 2022 11:49 AM * Amanda LaneGolimi) - 12/11/2022 11:23 AM EDT Spoke to patient. Patient is going to have his spouse email the tax return forms to me OR will havethem faxed at his upcoming appointment. Amanda Dang (Golimi) December 11, 2022 11:24 AM * Amanda LaneGolimi) - 11/30/2022 10:21 AM EDT Contacted patient by phone, LVM. Contacted by Blue Perchhart (within this encounter) to let the patient know that I have all the signatures, I just need the Proof of Income documents that we talked about. LVM- 11/30/22, 12/05/22 MyChart sent 11/30/22 * Dayana Toscano LPN - 11/29/2022 11:29 AM EDT Pcp completed form. This has been faxed back to the number on the form for [facility] pharmacy. * Amanda Dang (Golimi) - 11/26/2022 2:23 PM EDT Images from the original note were not included. 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 STATUS OF APPLICATION: Can be viewed under the encounter Additional Documentation > SmartForms:[facility] PATIENT ASSISTANCE Completed forms sent to providers for signatures and/or to marble worker will be available under Scanned Documents. The finalized form can be found under PAP_Medication Name_Complete. PAP TechnicianTeam will submit and track progress on the completed PAP application. Please do NOT fax to marble worker unless directed by the PAP Fishing Rod Assembler Team. Please see SmartForm described above for specifics. Please DO NOT close this encounter. Sent to patient: Spoke to patient. Emailed forms to patient per request. Pt will sign and send backproof of income. Received 11/27/22. Waiting for patient's proof of income. LVM and sent Blue Perchhart message 11/30/22 Sent to prescriber: Faxed to PCP office 11/28/22. Confirmation received. Provider signed 11/28 and received via fax 11/29/22. Sent to marble worker: documented in this encounterMercy [facility]06-23-2023 Instructions* Patient Instructions* Rosalio Couch MD - 12/14/2022 8:46 AM EDT Schedule gastric emptying scan to evaluate how well the stomach works 2. Esophageal manometry - this is a thin tube that goes into the nose and down the esophagus. This measures how well the muscles and valve of your esophagus work. You have to be awake for it, but we numb up your nose with lidocaine. This can tell us if there is a muscle or valve problem causing your trouble swallowing. Here is info: [email or web address] 3. Barium esophagram - barium swallow to evaluate the esophagus 4. Return to clinic in 3 months documented in this encounterMercy [facility]06-23-2023 History of Present illness Narrative* Rosalio Couch MD - 12/14/2022 8:31 AM EDT New Patient/Consult REASON FOR VISIT Denver Hollingsworth is a 42 year old male who is scheduled for dyspepsia at the consult request of Amanda Gómez. My final recommendations will be communicated back to the requesting physician by the way of the shared medical record, fax, or via US Mail. PRESENTING COMPLAINT & HISTORY --Complains of epigastric pressure, worse with eating --I can only eat half a can of soup - I get full --Has been ongoing for a month --Takes omeprazole before breakfast and before bed - no heartburn, but has belching and regurgitation --Has dysphagia to solids - feels solids get held up in mid-chest, then will have regurgitation/emesis GI EVALUATION EGD/colonoscopy 11/2022 DESCRIPTION OF PROCEDURE: After informed consent was given, patient was brought to the endoscopy suite. Appropriate time-out protocol was followed. Patient was given IV anesthesia by the anesthesia provider. Posterior pharynx was sprayed with local anesthetic. Bite block was placed. The patient wasplaced in left lateral decubitus position. The endoscope was lubricated, carefully inserted into the patient's mouth and easily advanced in the patient's esophagus, then into the stomach, then passed the pylorus then into the first and second portions of the duodenum. No masses, polyps, or lesions were noted in the 1st or 2nd portion of the duodenum. The endoscope was retracted back into the stomach. There was minimal radial erythematous streaking of the antrum noted. Mucosal biopsies were taken using cold grasper forceps to rule out H pylori. The retroflexed view in the fundus and the body of the stomach revealed a hiatal hernia, small to medium sized. No masses, polyps, lesions were noted. The endoscope was retracted back into the esophagus. The GE junction appeared minimally irregular. Mucosal biopsies were taken with cold grasper forceps. Because of the patient's complaint of dysphagia, mucosal biopsies were also taken of the mid portion of the esophagus. The remainder of the esophagus appeared normal. The endoscope was removed intact. The patient tolerated the procedure well. The next procedure performed was colonoscopy. The colonoscope was lubricated, carefully inserted into the patient's anus and advanced to the rectum. It was then advanced into the sigmoid colon, then the left colon, past splenic flexure into transverse colon, past hepatic flexure down the right colon to the cecum. Cecum was identified by confluence of teniae coli, identification of ileocecal valve, appendiceal orifice, and external palpation. At this level, the colonoscope was slowly retracted back and entire colonic mucosal surface was examined. The colon cleansing preparation was adequate. There was no evidence of any masses, polyps, lesions in the right colon. There was no evidence of any masses, polyps, lesions in the transverse colon. There was no evidence of any masses, polyps, or lesions in the left colon. There was no evidence of any masses, polyps, or lesions in the sigmoid colon. There was no evidence of any masses or polyps in the rectum. Retroflexed view in the rectum revealed hemorrhoidal changes, but no active inflammation or bleeding. The colonoscope was removed intact. Digital examination of the anal canal revealed no palpable masses. The patient tolerated the procedure well, was brought to recovery room in stable condition. Pathology: FINAL DIAGNOSIS A. Stomach, antrum, biopsy: - Gastric antral mucosa with reactive gastropathy. - There is no evidence of Helicobacter pylori infection on routine stains. B. Esophagogastric junction, biopsy: - Squamoglandular junction mucosa with intestinal metaplasia. - No dysplasia is identified. C. Esophagus, mid, biopsy: - Esophageal squamous mucosa with no histopathologic abnormality. terazosin (HYTRIN) 5 mg capsule Take 1 capsule by mouth daily at bedtime. omeprazole (PRILOSEC) 40 mg capsule Take 1 capsule by mouth twice daily. atorvastatin (LIPITOR) 20 mg tablet Take 1 tablet by mouth daily at bedtime. For cholesterol. topiramate (TOPAMAX) 25 mg tablet Take 50 mg by mouth daily at bedtime. colesevelam (WELCHOL) 625 mg tablet Take 2 tablets by mouth twice daily with meals. promethazine (PHENERGAN) 25 mg tablet Take 1 tablet by mouth every 6 hours as needed for nausea/vomiting. lisinopril (ZESTRIL) 5 mg tablet Take 1 tablet by mouth once daily. dulaglutide (TRULICITY) 3 mg/0.5 mL pen injector Inject 3 mg subcutaneously one time a week. semaglutide (OZEMPIC) 0.25 mg or 0.5 mg (2 mg/3 mL) pen Inject 0.5 mg subcutaneously one time a week. ON HOLD as of 09/20/22 while still taking Trulicity (Patient not taking: Reported on 11/06/2022) insulin glargine 100 unit/mL (3 mL) Inject 50 Units subcutaneously twice daily. Blood-Glucose Sensor (Proxama G7 SENSOR) allyson Apply new sensor every ten (10) days. metoprolol succinate ER (TOPROL XL) 50 mg 24 hr tablet Take 1 tablet by mouth once daily. buPROPion XL (WELLBUTRIN XL) 150 mg 24 hr tablet Take 150 mg by mouth once daily. Prescribed by psychiatrist insulin needles, DISPOSABLE, (BD INSULIN PEN NEEDLE UF) 31 gauge x 11/06 Use to inject insulin as directed. Up to 5 daily injections sertraline (ZOLOFT) 50 mg tablet Take 1 tablet by mouth once daily. OXcarbazepine (TRILEPTAL) 300 mg tablet Take 1 tablet by mouth twice daily. metFORMIN (GLUCOPHAGE) 500 mg tablet Take 2 tablets by mouth twice daily with meals. traZODone (DESYREL) 100 mg tablet Take 1 tablet by mouth daily at bedtime. insulin lispro (HUMALOG U-100 INSULIN) 100 unit/mL crtg Take 12 units with meals. Insulin Sliding Scale: BG 70-150, give 0 units; BG 151-180, give 4 units; BG 181-220, give 6 units; BG 221-260, give 8 units; BG 261-300, give 10 units; BG 301-340, give 12 units; BG 341-380, give 14 units and call provider. CPAP Autopap 5-20 cm H2O, Heat Humidity, suitable mask, Lifetime supplies, opt Chinstrap, G47.33. (Patient not taking: No sig reported) Lancets lancets Choose lancets covered by insurance. Test blood sugar(s) 3 times daily. Dx: Type 2 DM - Uncontrolled E11.65 Insulin: Yes (Patient taking differently: Choose lancets covered by insurance. Test blood sugar(s) 3 times daily. Dx: Type 2 DM - Uncontrolled E11.65 Insulin: Yes) Fibrate Anti-Lipidemics, Hydrocodone Bitartrate, and Vicodin [Hydrocodone-Acetaminophen] FAMILY HISTORY Colon Cancer: No Other Cancers: Yes FAMILY HISTORY Problem Relation Age of Onset Hypertension Mother COPD Mother Diabetes Father Coronary Artery Disease Father Bypass surgery and [place] 2012 Heart Father Heart Brother other (Diverticulitis) Brother Primary Biliary Cirrhosis Brother No Known Problems Maternal Grandmother Cancer Maternal Grandfather unknown No Known Problems Paternal Grandmother Diabetes Paternal Grandfather Colon Cancer No Family History 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 of hyperactivity diagnosed in childhood Back pain 02/12/2012 Bile acid esophageal reflux 11/14/2022 Bipolar disorder (HCC) Chronic post-traumatic headache Closed fracture of dorsal (thoracic) vertebra without mention of spinal cord injury 04/03/2012 Corns and callosities 12/05/2009 Depressive disorder, not elsewhere classified 06/10/2012 DIABETES MELLITUS TYPE II-UNCOMPL 08/30/2008 Dysmetabolic syndrome X 07/21/2008 Gastroesophageal reflux disease with esophagitis Hydronephrosis 11/13/2022 Mild right Nonspecific abnormal results of liver function study 04/06/2005 Ferritin 225, HBsAg and Hep C negative in 5- U/S Fatty Liver BERYL (obstructive sleep apnea) DME [facility] Home Respiratory Pain in joint, lower leg 06/05/2012 Right testicular pain 09/15/2021 Substance abuse (HCC) Tobacco use Unspecified essential hypertension 08/30/2008 PAST SURGICAL HISTORY Procedure Laterality Date CHOLECYSTECTOMY 2017 COLONOSCOPY 07/29/2013 Normal COLONOSCOPY 11/29/2022 EGD 11/29/2022 ESOPHAGOGASTRODUODENOSCOPY TRANSORAL DIAGNOSTIC 07/29/2013 H Pylori Gastritis, Gastric cardia type mucosa w/chronic inflammation UNSPECIFIED ORAL SURGERY PROCEDURE, BY REPORT tooth extraction. Social History Tobacco Use Smoking status: Every Day Packs/day: 0.50 Types: Cigarettes Start date: 08/11/1995 Smokeless tobacco: Never Vaping Use Vaping Use: Never used Substance Use Topics Alcohol use: No Drug use: Not Currently Types: Cocaine Comment: reports a history of cocaine use, denies any recent REVIEW OF SYSTEMS EyesNegative for vision changes, diplopia or epiphora. Ears, Mouth, nose, throat:No problems Cardiovascular: No Problems Respiratory: Negative for cough, wheezing and shortness of breath Gastrointestinal : as above Musuloskeletal: Denies significant problems Integumentary: no rashes, lesions, or jaundice Neurological: No history of neurologic problems Endocrine: Negative for cold or heat intolerance, polyuria, polydipsia and goiter. Psychiatric: Cooperative and agreeable Allergic/ Immunologic: Negative All others negative. PHYSICAL EXAMINATION There were no vitals taken for this visit. General - Normal, healthy, cooperative, in no acute distress Able to interact well. Psych - ORIENTATION: normal to time place, person and situation Mood/Affect: AFFECT AND MOOD: Normal Head/Neuro - Normal size and shape Facial appearance normal Pulmonary - respiratory effort normal Extremities- extremities normal, warm, no cyanosis,no clubbing, and no edema Skin - abnormal lesions not visualized Motor - patient seen sitting with Normal appearing strength and coordination Assessment Impression and Plan 42M with insulin-dependent DMII, presents with dysphagia to solids/pills, dyspepsia, and vomiting. EGD earlier this month without obstruction reported Recommend: --Esophagram to ensure no mechanical obstruction that was unable to be seen on endoscopy --Esophageal manometry to evaluate esophageal motility --Gastric emptying scan to evaluate gastric emptying Rosalio Couch MD December 14, 2022 8:32 AM documented in this encounterMercy [facility]06-14-2023 Instructions* Patient Instructions* Amanda Gómez PA-C - 12/05/2022 11:12 AM EDT Referral to gastroenterology for further evaluation documented in this encounterCleveland [id number] History of Present illness Narrative* Amanda Gómez PA-C - 12/05/2022 10:58 AM EDT FOLLOW UP VISIT - [id number] DATE OF SERVICE: 12/05/2022 : 1980 REFERRING PHYSICIAN: Michelle Jane MD Denver is a patient I am following for multiple abdominal complaints. Per my H&P from 11/23/22: The patient is a 42 year old male referred for endoscopy. Denver notes multiple abdominal complaints. Patient noted dysphagia with food sticking-worse with meats. States drinking some propel water helps. Notes nausea, vomiting, frequent belching, early satiety and bloating. States he is really only tolerating soup and liquids at this point. Reports a past history of H. Pylori that was treated. Notes constipation. Denies blood in stools or dark stools. Denver has undergone prior endoscopy. Last EGD and colonoscopy 07/29/[address] Jackson under MAC. Patient denies problems with sedation in the past. Patient reports that he has a past history of cocaine use. Reports that last use was 33 days prior to this visit. Denies any current drug use. Medical history is also significant for bipolar disorder, type II diabetes mellitus, hypertension. Patient follows with Dr. Jane in primary care for hischronic medical conditions. Denies chest pain, shortness of breath or recent hospitalizations. Dr. Burgos performed upper and lower endoscopy on 11/29/22 at [facility]. The patient was found to have hemorrhoids, antritis, hiatal hernia. Pathology demonstrated: FINAL DIAGNOSIS A. Stomach, antrum, biopsy: - Gastric antral mucosa with reactive gastropathy. - There is no evidence of Helicobacter pylori infection on routine stains. B. Esophagogastric junction, biopsy: - Squamoglandular junction mucosa with intestinal metaplasia. - No dysplasia is identified. C. Esophagus, mid, biopsy: - Esophageal squamous mucosa with no histopathologic abnormality. The patient notes no new complaints since the procedure, but continues to note the same symptoms hehad presented with initially with no change in severity. VITALS: Blood pressure 132/84, pulse 98, temperature 36.4 C (97.5 F), weight 123.1 kg (271 lb 6.4 oz), SpO2 98 %. General: patient is alert, cooperative, pleasant and in no acute distress On examination, the abdomen is benign. Assessment IMPRESSION: s/p EGD showing small to medium sized hiatal hernia and minimally irregular GI junction. Negative for H. Pylori. Normal colonoscopy. Continued belching, nausea, vomiting, early satiety, dysphagia PLAN: The operative findings and pathology report were reviewed with the patient, and the patient has hadthe opportunity to ask questions and have questions answered. If the patient notes any problems or changes in bowel function, the patient should contact me immediately. Otherwise I recommend follow up colonoscopy in 10 years Referral to gastroenterology for further evaluation of persistent abdominal complaints ?GI motilityissue vs possible dietary intolerance Patient verbalized understanding of all above and agreed with the plan Diagnoses: (R11.2) Nausea and vomiting, unspecified vomiting type (primary encounter diagnosis) (R14.2) Belching (R13.19) Esophageal dysphagia (R68.81) Early satiety (Z90.49) S/P cholecystectomy I spent a total of 23 minutes on the date of the service which included preparing to see the patient, [id number] patient care, completing clinical documentation, obtaining and/or reviewing separately obtained history, counseling and educating the patient/family/caregiver, independently interpretin g results (not separately reported), and communicating results to the patient/family/caregiver. Amanda Gómez PA-C documented [facility] encounter[facility] History of Present illness Narrative* Amanda Gómez PA-C - 11/23/2022 8:47 AM EDT HISTORY AND PHYSICAL Denver Hollingsworth 1980 REFERRING PHYSICIAN: Kaylee Vincent APRN.POLYSOMNOGRAPHY TECHNICIAN CHIEF COMPLAINT: Consult (Pressure in stomach, for last 3 weeks, gas, belching, when swallowing, feels like lump in esophagus. ) HPI: The patient is a 42 year old male referred for endoscopy. Denver notes multiple abdominal complaints. Patient noted dysphagia with food sticking-worse with meats. States drinking some propel water helps. Notes nausea, vomiting, frequent belching, early satiety and bloating. States he is really only tolerating soup and liquids at this point. Reports a past history of H. Pylori that was treated. Notes constipation. Denies blood in stools or dark stools. Denver has undergone prior endoscopy. Last EGD and colonoscopy 07/29/[address] Jackson under [facility]. Patient denies problems with sedation in the past. Patient reports that he has a past history of cocaine use. Reports that last use was 33 days prior to this visit. Denies any current drug use. Medical history is also significant for bipolar disorder, type II diabetes mellitus, hypertension. Patient follows with Dr. Jane in primary care for hischronic medical conditions. Denies chest pain, shortness of breath or recent hospitalizations. 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 of hyperactivity diagnosed in childhood Back pain 02/12/2012 Bipolar disorder (HCC) Chronic post-traumatic headache Closed fracture of dorsal (thoracic) vertebra without mention of spinal cord injury 04/03/2012 Corns and callosities 12/05/2009 Depressive disorder, not elsewhere classified 06/10/2012 DIABETES MELLITUS TYPE II-UNCOMPL 08/30/2008 Dysmetabolic syndrome X 07/21/2008 Gastroesophageal reflux disease with esophagitis Nonspecific abnormal results of liver function study 04/06/2005 Ferritin 225, HBsAg and Hep C negative in 5-09 U/S Fatty Liver BERYL (obstructive sleep apnea) DME [facility] Home Respiratory Pain in joint, lower leg 06/05/2012 Substance abuse (HCC) Tobacco use Unspecified essential hypertension 08/30/2008 PAST SURGICAL HISTORY Procedure Laterality Date CHOLECYSTECTOMY 2017 COLONOSCOPY 07/29/2013 Normal ESOPHAGOGASTRODUODENOSCOPY TRANSORAL DIAGNOSTIC 07/29/2013 H Pylori Gastritis, Gastric cardia type mucosa w/chronic inflammation UNSPECIFIED ORAL SURGERY PROCEDURE, BY REPORT tooth extraction. Current Outpatient Medications Medication Sig terazosin (HYTRIN) 5 mg capsule Take 1 capsule by mouth daily at bedtime. omeprazole (PRILOSEC) 40 mg capsule Take 1 capsule by mouth twice daily. atorvastatin (LIPITOR) 20 mg tablet Take 1 tablet by mouth daily at bedtime. For cholesterol. topiramate (TOPAMAX) 25 mg tablet Take 50 mg by mouth daily at bedtime. colesevelam (WELCHOL) 625 mg tablet Take 2 tablets by mouth twice daily with meals. promethazine (PHENERGAN) 25 mg tablet Take 1 tablet by mouth every 6 hours as needed for nausea/vomiting. lisinopril (ZESTRIL) 5 mg tablet Take 1 tablet by mouth once daily. dulaglutide (TRULICITY) 3 mg/0.5 mL pen injector Inject 3 mg subcutaneously one time a week. insulin glargine 100 unit/mL (3 mL) Inject 50 Units subcutaneously twice daily. Blood-Glucose Sensor (Proxama G7 SENSOR) allyson Apply new sensor every ten (10) days. metoprolol succinate ER (TOPROL XL) 50 mg 24 hr tablet Take 1 tablet by mouth once daily. buPROPion XL (WELLBUTRIN XL) 150 mg 24 hr tablet Take 150 mg by mouth once daily. Prescribed by psychiatrist insulin needles, DISPOSABLE, (BD INSULIN PEN NEEDLE UF) 31 gauge x 16 Use to inject insulin as directed. Up to 5 daily injections sertraline (ZOLOFT) 50 mg tablet Take 1 tablet by mouth once daily. traZODone (DESYREL) 100 mg tablet Take 1 tablet by mouth daily at bedtime. insulin lispro (HUMALOG U-100 INSULIN) 100 unit/mL crtg Take 12 units with meals. Insulin Sliding Scale: BG 70-150, give 0 units; BG 151-180, give 4 units; BG 181-220, give 6 units; BG 221-260, give 8 units; BG 261-300, give 10 units; BG 301-340, give 12 units; BG 341-380, give 14 units and call provider. Lancets lancets Choose lancets covered by insurance. Test blood sugar(s) 3 times daily. Dx: Type 2 DM - Uncontrolled E11.65 Insulin: Yes (Patient taking differently: Choose lancets covered by insurance. Test blood sugar(s) 3 times daily. Dx: Type 2 DM - Uncontrolled E11.65 Insulin: Yes) semaglutide (OZEMPIC) 0.25 mg or 0.5 mg (2 mg/3 mL) pen Inject 0.5 mg subcutaneously one time a week. ON HOLD as of 09/20/22 while still taking Trulicity (Patient not taking: Reported on 11/06/2022) OXcarbazepine (TRILEPTAL) 300 mg tablet Take 1 tablet by mouth twice daily. (Patient not taking: Reported on 11/06/2022) metFORMIN (GLUCOPHAGE) 500 mg tablet Take 2 tablets by mouth twice daily with meals. CPAP Autopap 5-20 cm H2O, Heat Humidity, suitable mask, Lifetime supplies, opt Chinstrap, G47.33. (Patient not taking: No sig reported) No current facility-administered medications for this visit. ALLERGIES: Fibrate Anti-Lipidemics, Hydrocodone Bitartrate, and Vicodin [Hydrocodone-Acetaminophen] PERSONAL HISTORY: Social History Tobacco Use Smoking status: Every Day Packs/day: 0.50 Types: Cigarettes Start date: 08/11/1995 Smokeless tobacco: Never Vaping Use Vaping Use: Never used Substance Use Topics Alcohol use: No Drug use: Not Currently Types: Cocaine Comment: reports a history of cocaine use, denies any recent FAMILY HISTORY: FAMILY HISTORY Problem Relation Age of Onset Hypertension Mother COPD Mother Diabetes Father Coronary Artery Disease Father Bypass surgery and [place] 2013 Heart Father Heart Brother other (Diverticulitis) Brother Primary Biliary Cirrhosis Brother No Known Problems Maternal Grandmother Cancer Maternal Grandfather unknown No Known Problems Paternal Grandmother Diabetes Paternal Grandfather Colon Cancer No Family History REVIEW OF SYMPTOMS: The review of systems data was entered by the nurse and reviewed by al Nursing Notes: Jennifer Oropeza LPN 11/23/2022 8:35 AM Signed REVIEW OF SYSTEMS: General: The patient notes fatigue, denies weight loss, denies weight gain, denies feeling hot, anddenies feelings of cold. Eyes: The patient denies glaucoma, denies eye injury/surgery, wears glasses or contacts. Ear/Nose/Throat: The patient notes allergies, denies hayfever, denies ear infections, and denies bloody noses. Cardiovascular: The patient denies chest pain, denies heart disease, notes high blood pressure,denies cardiac stent, denies prior heart attack, denies irregular heart beat, notes high cholesterol, denies poor circulation, denies heart failure, other cardiac issues, denies claudication, notes cold feet, denies peripheral arterial stent. Respiratory: The patient denies tuberculosis, denies pneumonia, denies frequent cough, denies pulmonary embolism, denies shortness of breath, and denies coughing up blood. Gastrointestinal: The patient notes difficulty swallowing, denies acid reflux, denies ulcers, notesvomiting, denies jaundice/hepatitis, denies gallbladder problems, denies black or tarry stools, denies hemorrhoids, denies bleeding from rectum, denies diverticulitis, notes constipation, denies diarrhea, denies loss of stool control, and denies hernias. Kidney/Bladder: The patient notes kidney stones, denies urine infections, and notes bloody urine. Skin: The patient denies a history of skin cancer, denies bleeding/changing moles, and denies a history of skin rash. Neurologic: The patient denies a history of epilepsy/convulsions, notes headaches, denies head/spinal injuries, and denies stroke/TIA. Psychiatric: The patient notes psychiatric medications, notes depression, and denies voices, notes substance abuse. Endocrine: The patient denies thyroid disorders, notes diabetes, and denies hormonal problems. Hematologic: The patient denies a history of bruising, denies bleeding, and denies anemia, denies blood clots. Infections: The patient denies a history of measles and mumps, denies rheumatic fever, and denies sexually transmitted diseases. Musculoskeletal: The patient notes back pain/injury, notes back problems, denies sciatica, notes knee/foot trouble, notes arthritis, or denies gout. When was patient's last Mammogram screening? N/A Last Colonoscopy: 2013 Jennifer Oropeza LPN I have confirmed and edited as necessary, the PFSH and ROS obtained by others. Amanda Gómez PA-C PHYSICAL EXAMINATION: General: The patient is 42 year old male, well nourished, well hydrated in no acute distress. The patient is oriented to time, place, and person. VITALS: Blood pressure 132/84, pulse 104, temperature 36.4 C (97.6 F), height 193 cm (6' 4), weight 123.4 kg (272 lb), SpO2 96 %. Body mass index is 33.11 kg/m . HEENT: Normal cephalic, ataumatic, pupils are equally round, sclera are anicteric, mucous membranesare moist, oropharynx is clear. Neck has no masses, asymmetry or lymphadenopathy. Respiratory: Clear to auscultation and percussion. Normal respiratory excursion and pattern. Cardiac: Examination is regular rate and rhythm. Normal S1/S2 Abdominal exam: Soft, nontender, with no palpable masses. No hepatosplenomegaly. No palpable hernias. Extremities: no clubbing, cyanosis or edema. No adenopathy. LABORATORY VALUES: As Noted RADIOLOGIC STUDIES: As Noted Assessment IMPRESSION: change in bowel habits, abdominal bloating PLAN: I have reviewed my findings with the surgeon. Will plan for upper and lower endoscopy. We discussed the risks and benefits of the planned endoscopy. I have informed the patient that complications can occur including failure to complete the endoscopy and perforation. The patient had the opportunity to ask questions concerning the planned endoscopy. My staff has also explained the procedure to the patient in understandable terms and has given the patient printed material concerning the procedure. The patient freely consents to surgery. I plan to use Miralax bowel preparation Patient instructed to contact PCP for instructions regarding diabetic medication, which may requireadjustment during bowel preparation and/or day of procedure We will plan for Monitored Anesthetic Care. Past history cocaine use. Per patient denies drug use for the past 33 days Diagnoses: (R11.2) Nausea and vomiting, unspecified vomiting type (primary encounter diagnosis) (R19.4) Change in bowel habits (R14.0) Abdominal bloating (R68.81) Early satiety (F14.91) History of cocaine use (Z86.19) History of Helicobacter pylori infection (R14.2) Belching Consultation requested by Kaylee Vincent CNP for an opinion regarding abdominal complaints. My finalrecommendations will be communicated back to the requesting physician by way of shared Medical record or letter to requesting physician via US mail. Amanda Gómez PA-C documented [facility] Nurse Note* Jennifer Oropeza LPN - 11/23/2022 8:31 AM EDT REVIEW OF SYSTEMS: General: The patient notes fatigue, denies weight loss, denies weight gain, denies feeling hot, anddenies feelings of cold. Eyes: The patient denies glaucoma, denies eye injury/surgery, wears glasses or contacts. Ear/Nose/Throat: The patient notes allergies, denies hayfever, denies ear infections, and denies bloody noses. Cardiovascular: The patient denies chest pain, denies heart disease, notes high blood pressure,denies cardiac stent, denies prior heart attack, denies irregular heart beat, notes high cholesterol, denies poor circulation, denies heart failure, other cardiac issues, denies claudication, notes cold feet, denies peripheral arterial stent. Respiratory: The patient denies tuberculosis, denies pneumonia, denies frequent cough, denies pulmonary embolism, denies shortness of breath, and denies coughing up blood. Gastrointestinal: The patient notes difficulty swallowing, denies acid reflux, denies ulcers, notesvomiting, denies jaundice/hepatitis, denies gallbladder problems, denies black or tarry stools, denies hemorrhoids, denies bleeding from rectum, denies diverticulitis, notes constipation, denies diarrhea, denies loss of stool control, and denies hernias. Kidney/Bladder: The patient notes kidney stones, denies urine infections, and notes bloody urine. Skin: The patient denies a history of skin cancer, denies bleeding/changing moles, and denies a history of skin rash. Neurologic: The patient denies a history of epilepsy/convulsions, notes headaches, denies head/spinal injuries, and denies stroke/TIA. Psychiatric: The patient notes psychiatric medications, notes depression, and denies voices, notes substance abuse. Endocrine: The patient denies thyroid disorders, notes diabetes, and denies hormonal problems. Hematologic: The patient denies a history of bruising, denies bleeding, and denies anemia, denies blood clots. Infections: The patient denies a history of measles and mumps, denies rheumatic fever, and denies sexually transmitted diseases. Musculoskeletal: The patient notes back pain/injury, notes back problems, denies sciatica, notes knee/foot trouble, notes arthritis, or denies gout. When was patient's last Mammogram screening? N/A Last Colonoscopy: 2013 Jennifer Oropeza LPN documented in [facility] History of Present illness Narrative* Kye Meade, [facility] [place] - 11/21/2022 1:30 PM EDT Primary Care Pharmacy Visit CC (Reason for Consult): Diabetes Goal: A1c < 7% Collaborating Provider: Dr. Jane Last Provider Visit: 11/14/22 Denver Hollingsworth is a 42 year old male presenting for follow up visit by telephone. Patient consents to pharmacy collaborative practice agreement. Patient is presenting today for f/up pharmacotherapy management appointment for diabetes. On 09/06, patient no-showed to PharmD visit and stated he and got in big argument and threw away all of his meds and was out of everything, not taking any medications. PharmD got SW involved who started assisting patient, which it was later determine patient may still have Medicaid coverage. At PharmD visit on 09/06, it was determined that the patient actually had NOT run out of any medication yet. Trulicity was switched to Ozempic, Dexcom G7 was ordered, and patient advised to contact S to confirm Medicaid status as recommended by ALINE. Ozempic required PA so Trulicity resumed. At last PharmD visiton 10/02, dietary mods encouraged and lisinopril started. At last PCP appt, there was suspiciion forkidney stones so flomax switched to terazosin and pt referred to urology. Subjective: HPI: Very happy with A1c. States he lost his email to link for Clarity, would like it sent to email again. Had a BG of 82 mg/dL today while driving, had OJ which corrected it. States he took insulin this AMthough did not have his toast/breakfast. Skipped breakfast. Having some GI issues, seeing general surgery soon. Energy level still very low. Sleeping ~12 hours/day. No nocturia. No vision changes, does have new glasses, got bifocals. Said he called [facility], said his Medicaid coverage expires today. States he has 1 mo Trulicity remaining. Several months supply of Lantus and Humalog. States he just refilled all oral pills last week. Noissues affording oral meds. Current DM Medications: Metformin 500mg tabs - 1000mg BID Dulaglutide (Trulicity) 3mg weekly on Wednesdays Insulin glargine (Lantus) 50 units BID Insulin lispro (Humalog) 12 units + SSI TIDAC GLYCEMIC CONTROL: CGM Report Summary of Professional CGM Findings (14 days): 2- Average glucose is 186 mg/dL 3- Hypoglycemia Total frequency of hypoglycemia: 0 events Time below target (<70 mg/dL): 0% 4- Hyperglycemia Time above target (>180 mg/dL): 55% 5- Time in target range (70-180 mg/dL): 45% Preventative Medications: On MADDI/ARB: Yes On Statin: Yes MEDICATIONS: Pill bottles are not present Adherence: denies missed doses [facility]acy: [facility] Rx coverage: Medicaid Affordability: yes, not sure if has insurance Diabetes supplies: Freestyle Jose 2; [employer] System: pill box ACTIVE PROBLEM LIST Attention Deficit Disorder Obesity, Unspecified Uncontrolled Type 2 Diabetes Mellitus With Hyperglycemia (Hcc) Essential Hypertension Beryl (Obstructive Sleep Apnea) Cavus Deformity of Foot, Acquired Cervicalgia Anxiety and Depression Mixed Hyperlipidemia Spinal Stenosis, Lumbar Region, Without Neurogenic Claudication Right Testicular Pain Tobacco Use Gastroesophageal Reflux Disease With Esophagitis Bipolar Disorder (Hcc) Substance Abuse (Hcc) Obesity, Class II, Bmi 35-39.9 Contusion of Unspecified Back Wall of Thorax, Initial Encounter Acute Laryngitis Acute Lumbosacral Myofascial Strain Back Contusion Chronic Back Pain Bronchitis Cervical Strain Cocaine Dependence With Intoxication (Hcc) Gallstone Pancreatitis Gastroesophageal Reflux Disease Hyperosmolar Non-Ketotic State in Patient With Type 2 Diabetes Mellitus (Hcc) Injury of Head Laceration of Leg, Right Nonspecific Colitis Orchitis and Epididymitis Ptsd (Post-Traumatic Stress Disorder) Viral Infection 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 of hyperactivity diagnosed in childhood Back pain 02/12/2012 Bipolar disorder (HCC) Chronic post-traumatic headache Closed fracture of dorsal (thoracic) vertebra without mention of spinal cord injury 04/03/2012 Corns and callosities 12/05/2009 Depressive disorder, not elsewhere classified 06/10/2012 DIABETES MELLITUS TYPE II-UNCOMPL 08/30/2008 Dysmetabolic syndrome X 07/21/2008 Gastroesophageal reflux disease with esophagitis Nonspecific abnormal results of liver function study 04/06/2005 Ferritin 225, HBsAg and Hep C negative in 5- U/S Fatty Liver BERYL (obstructive sleep apnea) DME [facility] Home Respiratory Pain in joint, lower leg 06/05/2012 Substance abuse (HCC) Tobacco use Unspecified essential hypertension 08/30/2008 Past medical, family and social history reviewed and updated. ALLERGIES Allergen Reactions Fibrate Anti-Lipide* Myalgia Hydrocodone Bitartr* GI Upset Vicodin [Hydrocodon* GI Upset Medication List Medication Directions Comments Action/Plan albuterol HFA (PROVENTIL HFA, VENTOLIN HFA) 90 mcg/actuation inhaler Two puffs every 4 hours as need for wheezing, SOB. Patient not taking: Reported on 11/06/2022 Not using atorvastatin (LIPITOR) 20 mg tablet Take 1 tablet by mouth daily at bedtime. For cholesterol. Taking QPM blood sugar diagnostic (TRUE METRIX GLUCOSE TEST STRIP) test strip Check sugars 3 times daily and as directed. DM type 2 E11.65 Insulin: yes Patient not taking: Reported on 11/06/2022 supplies Blood-Glucose Meter monitoring kit Glucose Meter of Choice (whatever is covered by insurance) - Kit- Dx: Type 2 DM - Uncontrolled E11.65 Patient not taking: Reported on 11/06/2022 supplies Blood-Glucose Sensor (Proxama G7 SENSOR) allyson Apply new sensor every ten (10) days. supplies buPROPion XL (WELLBUTRIN XL) 150 mg 24 hr tablet Take 150 mg by mouth once daily. Prescribed by psychiatrist taking colesevelam (WELCHOL) 625 mg tablet Take 2 tablets by mouth twice daily with meals. Taking BID CPAP Autopap 5-20 cm H2O, Heat Humidity, suitable mask, Lif[employer] supplies, opt Chinstrap, G47.33. Patient not taking: No sig reported supplies dulaglutide (TRULICITY) 3 mg/0.5 mL pen injector Inject 3 mg subcutaneously one time a week. taking insulin glargine 100 unit/mL (3 mL) Inject 50 Units subcutaneously twice daily. taking insulin lispro (HUMALOG U-100 INSULIN) 100 unit/mL crtg Take 12 units with meals. Insulin Sliding Scale: BG 70-150, give 0 units; BG 151-180, give 4 units; BG 181-220, give 6 units; BG 221-260, give 8 units; BG 261-300, give 10 units; BG 301-340, give 12 units; BG 341-380, give 14 units and call provider. taking insulin needles, DISPOSABLE, (BD INSULIN PEN NEEDLE UF) 31 gauge x 5/16 Use to inject insulin as directed. Up to 5 daily injections supplies Lancets lancets Choose lancets covered by insurance. Test blood sugar(s) 3 times daily. Dx: Type 2 DM - Uncontrolled E11.65 Insulin: Yes Patient not taking: Reported on 11/06/2022 supplies lisinopril (ZESTRIL) 5 mg tablet Take 1 tablet by mouth once daily. Never started metFORMIN (GLUCOPHAGE) 500 mg tablet Take 2 tablets by mouth twice daily with meals. taking metoprolol succinate ER (TOPROL XL) 50 mg 24 hr tablet Take 1 tablet by mouth once daily. taking omeprazole (PRILOSEC) 40 mg capsule Take 1 capsule by mouth twice daily. Taking BID OXcarbazepine (TRILEPTAL) 300 mg tablet Take 1 tablet by mouth twice daily. Patient not taking: Reported on 11/06/2022 Stated it is on HOLD per patient, says psych put this med on HOLD and started on topiramate promethazine (PHENERGAN) 25 mg tablet Take 1 tablet by mouth every 6 hours as needed for nausea/vomiting. Has for PRN use semaglutide (OZEMPIC) 0.25 mg or 0.5 mg (2 mg/3 mL) pen Inject 0.5 mg subcutaneously one time a week. ON HOLD as of 09/20/22 while still taking Trulicity Patient not taking: Reported on 11/06/2022 Not taking, on Trulicity sertraline (ZOLOFT) 50 mg tablet Take 1 tablet by mouth once daily. taking terazosin (HYTRIN) 5 mg capsule Take 1 capsule by mouth daily at bedtime. taking topiramate (TOPAMAX) 25 mg tablet Take 50 mg by mouth daily at bedtime. Taking; says seeing psych today and planning to get new refills traZODone (DESYREL) 100 mg tablet Take 1 tablet by mouth daily at bedtime. taking Rx meds not listed in EPIC: none OTCs: none Herbals: none Objective: Exam: Last 3 Encounter BP Readings: Date: BP: 11/14/2022 120/86 11/06/2022 108/62 08/14/2022 124/84 Wt: 125.2 kg (276 lb) BMI: 33.60 kg/(m^2) LABS: Reviewed Lab Results Component Value Date HBA1C 7.6 11/14/2022 HBA1C 10.2 08/14/2022 HBA1C 7.9 02/06/2022 HBA1C 12.7 09/19/2020 HBA1C 10.4 08/03/2019 HBA1C 12.0 01/19/2019 HBA1C 10.0 10/20/2018 CMP: Glucose 220 11/14/2022 BUN 11 11/14/2022 Creatinine, Whole Blood (iSTAT) 0.84 11/14/2022 Sodium 137 11/14/2022 Potassium 4.0 11/14/2022 Chloride 104 11/14/2022 CO2 25 11/14/2022 Protein, Total 7.2 11/14/2022 Albumin 4.4 11/14/2022 Calcium 9.3 11/14/2022 Alkaline Phosphatase 106 11/14/2022 Bilirubin, Total 0.3 11/14/2022 AST 17 11/14/2022 ALT 28 11/14/2022 eGFR >60 Lab Results Component Value Date CHOL 141 08/14/2022 CHOL 542 09/19/2020 LDL 53 08/14/2022 LDL 09/19/2020 Unable to calculate due to increased Triglycerides. See LDL-Chol, Direct. HDL 36 08/14/2022 HDL 12 09/19/2020 TG 259 08/14/2022 TG 4,520 09/19/2020 The 10-year ASCVD risk score (Tom GOFF, et al., 2019) is: 7% Values used to calculate the score: Age: 42 years Sex: Male Is Non- : No Diabetic: Yes Tobacco smoker: Yes Systolic Blood Pressure: 120 mmHg Is BP treated: Yes HDL Cholesterol: 36 mg/dL Total Cholesterol: 141 mg/dL Albumin/Creat Ratio (mg/g) Date Value 08/14/2022 89 (H) PHARMACOTHERAPY ASSESSMENT/PLAN: 1. Uncontrolled type 2 diabetes mellitus with hyperglycemia (HCC) - ICD9: 250.02, ICD10: E11.65 (primary diagnosis) A1c goal < 7%; much improved control (last A1c 7.6%); reported CGM report suggests TIR not at goal, is >180 55% of the time; occasionally will have sx of lows if skips meals and/or takes Humalog without eating - he treats appropriately; still having some GI issues and following up with surgery soon, therefore will not adjust Trulicity today; per patient his insurance expires today, therefore will not consider insulin doses to maintain supply; renal fxn and LFTs sufficient for use CONTINUE current regimen Counseled on importance of NOT skipping meals. Also advised to NOT give mealtime insulin if skipping meal. Suggested keeping glucose tabs in car/truck Resent invite to link with PharmD via Dexcom Clarity ACEi/ARB for renal protection: never started taking lisinopril, advised to start. Contact office ifhas dizziness/light-headedness 2. Medication management - ICD9: V58.69, ICD10: Z79.899 Patient reports JFS said he would love Medicaid coverage today. Will forward to to assist with getting patient new insurance coverage. 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 Will schedule f/up with PharmD once insurance coverage is determined. Patient verbalized understanding of instructions. Kye Meade PharmD, [facility] Primary Care Clinical Pharmacist The majority of the pharmacy visit (> 50%) was spent counseling and/or coordinating care for thepatient. interaction: telephonic time was 30 minutes. documented in this encounterMer[facility]26-[facility]23 Miscellaneous Notes* Telephone Encounter - Kaylee Vincent APRN.CNP - 11/16/2022 1:16 PM EDT My chart message sent. * Telephone Encounter - Shelby Lea LPN - 11/15/2022 8:28 AM EDT Pt calling for lab results. Pt does not have voicemail. Shelby Lea LPN documented in this encounterMer[facility]05-23-2023 Miscellaneous Notes* Telephone Encounter - Melina Garcia LPN - 11/13/2022 1:13 PM EDT Patient notified of providers message and verbalized understanding. Patient states he does have themedication and does not need any refills at this time. * Telephone Encounter - Britney Cervantes APRN.CHILD & ADOLESCENT PSYCHIATRIST - 11/13/2022 12:57 PM EDT He was prescribed promethazine on November 07, 2023 per outside medication review. If he has that he cantake it for nausea. I can send a refill if he needs it. If he is unable to keep down fluids or foods then would recommend another ER visit * Telephone Encounter - Shelby Lea LPN - 11/13/2022 10:25 AM EDT Pt was seen in the ER and was told he passed a kidney stone. Pt has scheduled an ER FU for tomorrow. Pt was instructed to drink plenty of fluids but pt not sure what to do about the vomiting after taking anything in. Pt will discuss at apt tomorrow. Pt was also instructed to follow up with a Urologist. Shelby Lea LPN * Telephone Encounter - Shelby Lea LPN - 11/13/2022 8:30 AM EDT Pt called in and he was going to come in to get fasting lab work done and on top of everything he has going on now he is having blood with his urine. Pt reports he did not go to ER last night becausehe had taken all his meds and was going to see how he was doing in the morning and come get blood work done. Pt advised to ER. Pt agrees. Shelby Lea LPN documented in this encounterMer[facility]05-18-2023 Miscellaneous Notes* Telephone Encounter - Pat Garcia - 11/08/2022 3:23 PM EDT Patient lost his script for eye glasses. 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 Please advise patient when ready. documented in this encounterMercy [facility]05-16-2023 Instructions* Patient Instructions* Michelle Jane MD - 11/06/2022 3:13 PM EDT Let me know if symptoms not improving over the course of the next 2 to 7 days, since might need to add Carafate (sucralfate) to coat stomach and esophagus. documented in this encounterMercy [facility]05-16-2023 History of Present illness Narrative* Michelle Jane MD - 11/06/2022 2:42 PM EDT This note was created using [employer]. Subjective Denver Hollingsworth is a 42 year old male. Patient presents with: F/U 3 Month SUBJECTIVE: Denver Hollingsworth is a 42 year old year old gentleman here today for follow up appointment for review of medical conditions. Not eating the past week with vomiting and diarrhea--every day the past week with vomiting whether eats or drinks. Heavy meal or light meal can cause vomiting. Even threw up crackers and water. Cannot get bowl of soup to stay down. No persistent in stomach or with eating. Pain before throws up. Diarrhea with yellow water. Has Had some med changes recently. But does not think is related. Yellow bile. Belches and tastes and smells like bile. Feels dehydrated. Drinks mostly Propel water all day. 1 cup coffee. Able to keep pills down with just a little bit of water. Able to keep night pills before bed and stays down. Blood sugars on DexCom--ran high for a little bit when was depressed. 25% very high, 28% high, 47% in range. Average glucose 212. Right now 185--nothing to eat today. Highest in past week. Got down to 79. DexCom helping. Dad had similar symptoms before dad from COVID. Saw Dr. Friend and found to have ulcersand gastritis. Noted that has not had COVID+ illness. Topamax 25mg 2 pills at bedtime [facility]--stopped Trileptal. Follow with telehealth every wek. 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 of hyperactivity diagnosed in childhood Back pain 02/12/2012 Bipolar disorder (HCC) Chronic post-traumatic headache Closed fracture of dorsal (thoracic) vertebra without mention of spinal cord injury 04/03/2012 Corns and callosities 12/05/2009 Depressive disorder, not elsewhere classified 06/10/2012 DIABETES MELLITUS TYPE II-UNCOMPL 08/30/2008 Dysmetabolic syndrome X 07/21/2008 Gastroesophageal reflux disease with esophagitis Nonspecific abnormal results of liver function study 04/06/2005 Ferritin 225, HBsAg and Hep C negative in - /S Fatty Liver BERYL (obstructive sleep apnea) DME [facility] Home Respiratory Pain in joint, lower leg 06/05/2012 Substance abuse (HCC) Tobacco use Unspecified essential hypertension 08/30/2008 PAST SURGICAL HISTORY Procedure Laterality Date CHOLECYSTECTOMY 2017 COLONOSCOPY 07/29/2013 Normal ESOPHAGOGASTRODUODENOSCOPY TRANSORAL DIAGNOSTIC 07/29/2013 H Pylori Gastritis, Gastric cardia type mucosa w/chronic inflammation UNSPECIFIED ORAL SURGERY PROCEDURE, BY REPORT tooth extraction. Current Outpatient Medications Medication Sig lisinopril (ZESTRIL) 5 mg tablet Take 1 tablet by mouth once daily. dulaglutide (TRULICITY) 3 mg/0.5 mL pen injector Inject 3 mg subcutaneously one time a week. insulin glargine 100 unit/mL (3 mL) Inject 50 Units subcutaneously twice daily. Blood-Glucose Sensor (DEXCOM G7 SENSOR) allyson Apply new sensor every ten (10) days. metoprolol succinate ER (TOPROL XL) 50 mg 24 hr tablet Take 1 tablet by mouth once daily. buPROPion XL (WELLBUTRIN XL) 150 mg 24 hr tablet Take 150 mg by mouth once daily. Prescribed by psychiatrist insulin needles, DISPOSABLE, (BD INSULIN PEN NEEDLE UF) 31 gauge x 5/16 Use to inject insulin as directed. Up to 5 daily injections omeprazole (PRILOSEC) 20 mg capsule Take 1 capsule by mouth daily before breakfast. (Patient takingdifferently: Take 20 mg by mouth daily before breakfast. OTC) sertraline (ZOLOFT) 50 mg tablet Take 1 tablet by mouth once daily. atorvastatin (LIPITOR) 20 mg tablet Take 1 tablet by mouth daily at bedtime. For cholesterol. metFORMIN (GLUCOPHAGE) 500 mg tablet Take 2 tablets by mouth twice daily with meals. traZODone (DESYREL) 100 mg tablet Take 1 tablet by mouth daily at bedtime. insulin lispro (HUMALOG U-100 INSULIN) 100 unit/mL crtg Take 12 units with meals. Insulin Sliding Scale: BG 70-150, give 0 units; BG 151-180, give 4 units; BG 181-220, give 6 units; BG 221-260, give 8 units; BG 261-300, give 10 units; BG 301-340, give 12 units; BG 341-380, give 14 units and call provider. topiramate (TOPAMAX) 25 mg tablet Take 50 mg by mouth daily at bedtime. Omeprazole Magnesium (PRILOSEC OTC) 20 mg tablet Take 1 tablet by mouth daily before breakfast. 1/2hr before meal. colesevelam (WELCHOL) 625 mg tablet Take 2 tablets by mouth twice daily with meals. promethazine (PHENERGAN) 25 mg tablet Take 1 tablet by mouth every 6 hours as needed for nausea/vomiting. semaglutide (OZEMPIC) 0.25 mg or 0.5 mg (2 mg/3 mL) pen Inject 0.5 mg subcutaneously one time a week. ON HOLD as of 09/20/22 while still taking Trulicity (Patient not taking: Reported on 11/06/2022) albuterol HFA (PROVENTIL HFA, VENTOLIN HFA) 90 mcg/actuation inhaler Two puffs every 4 hours as need for wheezing, SOB. (Patient not taking: Reported on 11/06/2022) OXcarbazepine (TRILEPTAL) 300 mg tablet Take 1 tablet by mouth twice daily. (Patient not taking: Reported on 11/06/2022) blood sugar diagnostic (TRUE METRIX GLUCOSE TEST STRIP) test strip Check sugars 3 times daily and as directed. DM type 2 E11.65 Insulin: yes (Patient not taking: Reported on 11/06/2022) CPAP Autopap 5-20 cm H2O, Heat Humidity, suitable mask, Lifetime supplies, opt Chinstrap, G47.33. (Patient not taking: No sig reported) Blood-Glucose Meter monitoring kit Glucose Meter of Choice (whatever is covered by insurance) - Kit- Dx: Type 2 DM - Uncontrolled E11.65 (Patient not taking: Reported on 11/06/2022) Lancets lancets Choose lancets covered by insurance. Test blood sugar(s) 3 times daily. Dx: Type 2 DM - Uncontrolled E11.65 Insulin: Yes (Patient not taking: Reported on 11/06/2022) No current facility-administered medications for this visit. Review of Systems Objective BP 108/62 Pulse 99 Temp 36.2 C (97.1 F) Resp 18 Wt 120.7 kg (266 lb) SpO2 96% BMI 32.38kg/m Physical Exam Vitals reviewed. Constitutional: Appearance: Normal appearance. He is obese. Eyes: Conjunctiva/sclera: Conjunctivae normal. Cardiovascular: Rate and Rhythm: Normal rate and regular rhythm. Heart sounds: Normal heart sounds. Pulmonary: Effort: Pulmonary effort is normal. Breath sounds: Normal breath sounds. Skin: General: Skin is warm and dry. Neurological: General: No focal deficit present. Mental Status: He is alert and oriented to person, place, and time. Psychiatric: Mood and Affect: Mood normal. Behavior: Behavior normal. Thought Content: Thought content normal. Judgment: Judgment normal. Hemoglobin A1C (%) Date Value 11/14/2022 7.6 08/14/2022 10.2 02/06/2022 7.9 08/28/2021 11.1 09/19/2020 12.7 01/19/2019 12.0 10/20/2018 10.0 06/18/2018 11.0 01/16/2018 7.9 Hemoglobin A1C (POCT) (%) Date Value 08/03/2019 10.4 Assessment and Plan Encounter Diagnosis ICD-10-CM 1. Uncontrolled type 2 diabetes mellitus with hyperglycemia (HCC) E11.65 Update lab soon. Noted improved control with Dexcom system. 2. Bile acid esophageal reflux K21.9 colesevelam (WELCHOL) 625 mg tablet 3. Bile salt-induced diarrhea K90.89 colesevelam (WELCHOL) 625 mg tablet 4. Bilious vomiting with nausea R11.14 5. Mixed hyperlipidemia E78.2 6. Essential hypertension I10 7. Obesity (BMI 30.0-34.9) E66.9 Above issues addressed with patient. Patient involved in shared decision making for management of medical issues. History and medications reviewed. Epic updated as needed Refills and/or prescriptions taken care of and meds adjusted as indicated after reviewed history, exam and labs. Health Maintenance reviewed. Updated record and/or ordered tests as recorded. Encouraged on efforts at healthy diet and regular exercise and adequate sleep. Needs to keep working on diet and exercise with lifestyle changes for effective weight loss as wellas control of DM, and control of BP and lipids. Sugars better controlled. Continue present management. Further evaluation and treatment as indicated. Weight has been coming down but mostly because notable to eat well as noted in HPI. Work on getting bile issues controlled and keeping adequate nutrition while maintaining gradual weight loss. Further evaluation and treatment as indicated. Michelle Jane MD documented in this encounterMer[facility]04-11-[facility]23 History of Present illness Narrative* Vinayak Brunner, [facility] [place] - 10/02/2022 11:30 AM EDT Primary Care Pharmacy Visit CC (Reason for Consult): Diabetes Goal: A1c < 7% Collaborating Provider: Dr. Jane Last Provider Visit: 06/04/22 Denver Hollingsworth is a 42 year old male presenting for follow up visit by telephone. Patient consents to pharmacy collaborative practice agreement. Patient is presenting today for f/up pharmacotherapy management appointment for diabetes. On 09/06, patient no-showed to PharmD visit and stated he and got in big argument and threw away all of his meds and was out of everything, not taking any medications. PharmD got SW involved who started assisting patient, which it was later determine patient may still have Medicaid coverage. At last PharmD visit on 09/06, it was determined that the patient actually had NOT run out of any medication yet.Trulicity was switched to Ozempic, Dexcom G7 was ordered, and patient advised to contact S to confirm Medicaid status as recommended by SW. Ozempic required PA so Trulicity resumed. Subjective: HPI: Patient states he is doing good. States that he didn't go to work -- too nice and wanted to slept in. Patient seemed to be in a good mood when speaking with him. Patient reports that his anxiety and depression been bad these past few days with marital issues, but states he is feeling good today andmaking jokes frequently. Patient reports that he has not missed any doses of his medications. Reports that he is still usingthe Trulicity and has taken 2 doses of the 3 mg once weekly. States he has had no side-effects fromhis medications. Denies CP, SOB, polyuria and polydipsia. Reports no N/V/D. Patient reported eating mac and cheese and chicken yesterday. States that he has been eating what he wants recently. Patient reports only drinking water. Patient states he is not interested in quitting smoking at this time. Patient states he has not yet called JFS because his insurance is active and he thought it was all worked out. States he has phone number for JFS. Current DM Medications: Metformin 500 mg tabs - 1000 mg BID Dulaglutide (Trulicity) 3 mg weekly Insulin glargine (Lantus) 50 units BID Insulin lispro (Humalog) 12 units + SSI TIDAC Current HTN Medications: Metoprolol succinate 50mg daily GLYCEMIC CONTROL: CGM Report Summary of Professional CGM Findings (14 days): Patient unable to locate capture rate on [employer] gagan at this time 2- Average glucose is 181 mg/dL 3- Hypoglycemia Total frequency of hypoglycemia: 0 events Time below target (<70 mg/dL): 0% Hypoglycemia trends: N/A 4- Hyperglycemia Time above target (>180 mg/dL): 37% high, 7% very high 5- Time in target range (70-180 mg/dL): 56% Preventative Medications: On MADDI/ARB: No On Statin: Yes ROS: Patient denies CP, SOB, GAMBINO, blurred vision, dizziness or lightheadedness Patient denies symptoms of hypoglycemia (sweating, anxiety, palpitations, hunger, and tremor) Patient denies symptoms of hyperglycemia (polyuria, polydipsia, polyphagia) Patient denies potential medication adverse effects DIET/EXERCISE/SOCIAL Hx: Patients eating what he wants -- yesterday had chicken and mac and cheese Beverages: only water Exercise: none Tobacco: 1/2 ppd; not interested in quitting MEDICATIONS: Pill bottles are not present Adherence: denies missed doses Pharmacy: [facility] Rx coverage: uncertain if has Medicaid or not Affordability: yes, not sure if has insurance Diabetes supplies: [employer] Jose 2; [employer] System: pill box ACTIVE PROBLEM LIST Attention Deficit Disorder Obesity, Unspecified Uncontrolled Type 2 Diabetes Mellitus With Hyperglycemia (Hcc) Essential Hypertension Beryl (Obstructive Sleep Apnea) Cavus Deformity of Foot, Acquired Cervicalgia Anxiety and Depression Mixed Hyperlipidemia Spinal Stenosis, Lumbar Region, Without Neurogenic Claudication Right Testicular Pain Tobacco Use Gastroesophageal Reflux Disease With Esophagitis Bipolar Disorder (Hcc) Substance Abuse (Hcc) Obesity, Class II, Bmi 35-39.9 Contusion of Unspecified Back Wall of Thorax, Initial Encounter Acute Laryngitis Acute Lumbosacral Myofascial Strain Back Contusion Chronic Back Pain Bronchitis Cervical Strain Cocaine Dependence With Intoxication ([facility]) Gallstone Pancreatitis Gastroesophageal Reflux Disease Hyperosmolar Non-Ketotic State in Patient With Type 2 Diabetes Mellitus (Hcc) Injury of Head Laceration of Leg, Right Nonspecific Colitis Orchitis and Epididymitis Ptsd (Post-Traumatic Stress Disorder) Viral Infection 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 of hyperactivity diagnosed in childhood Back pain 02/12/2012 Bipolar disorder (HCC) Chronic post-traumatic headache Closed fracture of dorsal (thoracic) vertebra without mention of spinal cord injury 04/03/2012 Corns and callosities 12/05/2009 Depressive disorder, not elsewhere classified 06/10/2012 DIABETES MELLITUS TYPE II-UNCOMPL 08/30/2008 Dysmetabolic syndrome X 07/21/2008 Gastroesophageal reflux disease with esophagitis Nonspecific abnormal results of liver function study 04/06/2005 Ferritin 225, HBsAg and Hep C negative in 10-30 U/S Fatty Liver BERYL (obstructive sleep apnea) DME [facility] Home Respiratory Pain in joint, lower leg 06/05/2012 Substance abuse (HCC) Tobacco use Unspecified essential hypertension 08/30/2008 ALLERGIES Allergen Reactions Fibrate Anti-Lipide* Myalgia Hydrocodone Bitartr* GI Upset Vicodin [Hydrocodon* GI Upset Medication List Medication Directions Comments Action/Plan albuterol HFA (PROVENTIL HFA, VENTOLIN HFA) 90 mcg/actuation inhaler Two puffs every 4 hours as need for wheezing, SOB. atorvastatin (LIPITOR) 20 mg tablet Take 1 tablet by mouth daily at bedtime. For cholesterol. blood sugar diagnostic (TRUE METRIX GLUCOSE TEST STRIP) test strip Check sugars 3 times daily and as directed. DM type 2 E11. Insulin: yes Blood-Glucose Meter monitoring kit Glucose Meter of Choice (whatever is covered by insurance) - Kit- Dx: Type 2 DM - Uncontrolled . Blood-Glucose Sensor (DEXCOM G7 SENSOR) allyson Apply new sensor every ten (10) days. buPROPion XL (WELLBUTRIN XL) 150 mg 24 hr tablet Take 150 mg by mouth once daily. Prescribed by psychiatrist CPAP Autopap 5-20 cm H2O, Heat Humidity, suitable mask, [employer] supplies, opt Chinstrap, G47.33. Patient not taking: No sig reported dulaglutide (TRULICITY) 3 mg/0.5 mL pen injector Inject 3 mg subcutaneously one time a week. famotidine (PEPCID) 20 mg tablet Take 1 tablet by mouth at bedtime as needed. insulin glargine 100 unit/mL (3 mL) Inject 50 Units subcutaneously twice daily. insulin lispro (HUMALOG U-100 INSULIN) 100 unit/mL crtg Take 12 units with meals. Insulin Sliding Scale: BG 70-150, give 0 units; BG 151-180, give 4 units; BG 181-220, give 6 units; BG 221-260, give 8 units; BG 261-300, give 10 units; BG 301-340, give 12 units; BG 341-380, give 14 units and call provider. insulin needles, DISPOSABLE, (BD INSULIN PEN NEEDLE UF) 31 gauge x 5/16 Use to inject insulin as directed. Up to 5 daily injections Lancets lancets Choose lancets covered by insurance. Test blood sugar(s) 3 times daily. Dx: Type 2 DM - Uncontrolled Insulin: Yes lisinopril (ZESTRIL, PRINIVIL) 20 mg tablet Take 1 tablet by mouth once daily. Dose change- take one daily Patient not taking: Reported on 09/14/2022 metFORMIN (GLUCOPHAGE) 500 mg tablet Take 2 tablets by mouth twice daily with meals. metoprolol succinate ER (TOPROL XL) 50 mg 24 hr tablet Take 1 tablet by mouth once daily. omeprazole (PRILOSEC) 20 mg capsule Take 1 capsule by mouth daily before breakfast. Patient taking differently: Take 20 mg by mouth daily before breakfast. OTC OXcarbazepine (TRILEPTAL) 300 mg tablet Take 1 tablet by mouth twice daily. semaglutide (OZEMPIC) 0.25 mg or 0.5 mg (2 mg/3 mL) pen Inject 0.5 mg subcutaneously one time a week. ON HOLD as of 09/20/22 while still taking Trulicity sertraline (ZOLOFT) 50 mg tablet Take 1 tablet by mouth once daily. traZODone (DESYREL) 100 mg tablet Take 1 tablet by mouth daily at bedtime. Rx meds not listed in EPIC: None OTCs: None Herbals: None Objective: Exam: Last 3 Encounter BP Readings: Date: BP: 08/14/2022 124/84 06/04/2022 132/92 04/25/2022 129/85 Wt: 129.7 kg (286 lb) BMI: 34.81 kg/(m^2) LABS: Reviewed Lab Results Component Value Date HBA1C 10.2 08/14/2022 HBA1C 7.9 02/06/2022 HBA1C 11.1 08/28/2021 HBA1C 12.7 09/19/2020 HBA1C 10.4 08/03/2019 HBA1C 12.0 01/19/2019 HBA1C 10.0 10/20/2018 CMP: Glucose 105 08/14/2022 BUN 12 08/14/2022 Creatinine, Whole Blood (iSTAT) 0.83 08/14/2022 Sodium 136 08/14/2022 Potassium 4.3 08/14/2022 Chloride 99 08/14/2022 CO2 28 08/14/2022 Protein, Total 7.6 08/14/2022 Albumin 4.8 08/14/2022 Calcium 10.1 08/14/2022 Alkaline Phosphatase 86 08/14/2022 Bilirubin, Total 0.4 08/14/2022 AST 29 08/14/2022 ALT 38 08/14/2022 eGFR >60 Lab Results Component Value Date CHOL 141 08/14/2022 CHOL 542 09/19/2020 LDL 53 08/14/2022 LDL 09/19/2020 Unable to calculate due to increased Triglycerides. See LDL-Chol, Direct. HDL 36 08/14/2022 HDL 12 09/19/2020 TG 259 08/14/2022 TG 4,520 09/19/2020 The 10-year ASCVD risk score (Tom GOFF, et al., 2019) is: 7.4% Values used to calculate the score: Age: 42 years Sex: Male Is Non- : No Diabetic: Yes Tobacco smoker: Yes Systolic Blood Pressure: 124 mmHg Is BP treated: Yes HDL Cholesterol: 36 mg/dL Total Cholesterol: 141 mg/dL Albumin/Creat Ratio (mg/g) Date Value 08/14/2022 89 (H) PHARMACOTHERAPY ASSESSMENT/PLAN: 1. Uncontrolled type 2 diabetes mellitus with hyperglycemia (HCC) - ICD9: 250.02, ICD10: E11.65 (primary diagnosis) A1c goal < 7.0%; uncontrolled (last A1c 10.2%); SMBG in target range below goal of > 70% of the time in target range on current regimen, however, unable to identify the capture rate of the Dexcom at this time; No s/sx hypoglycemia; No s/sx hyperglycemia; Patient has received 2 doses of Trulicity 3 mg at this time. Patient reports still eating poorly, may be contributing to poor glucose contr ol (high 37% of the time). Because patient has only received 2 doses of the Trulicity 3 mg once weekly and unable to verify capture rate at this time, will continue on this dose and re-assess at nextvisit. Renal fxn and LFTs sufficient for use CONTINUE metformin 1000 mg BID, dulaglutide 3 mg weekly, Insulin glargine 50 units BID, and insulinlispro 12 units + SSI TIDAC Discussed plan to continue Trulicity at this time until he runs out, then switch to Ozempic as thishas been approved Discussed dietary changes. Discussed focusing on eating foods that are lower in carbohydrate and focusing on eating vegetables and protein rich foods, such as chicken (not fried). Discussed getting connected to us via the [employer] gagan -- stated to look for an e-mail with an invite and to have this set up prior to next visit ACEi/ARB for renal protection: No -- patient agreeable to starting low lose ACEi Statin: yes HbA1c: due 11/11/2022 2. Essential hypertension - ICD9: 401.9, ICD10: I10 Fair control (Goal of BP <130/80). Patient is not using ACEi/ARB -- does not have CKD, but most recent albumin/creatinine ration was 89 on 08/14/2022. Patient currently using metoprolol succinate 50 mg once daily. Patient states he was on lisinopril in the past, but was taken off when metoprololwas initiated. Patient's last BP on 08/14/2022 was 124/84. Patient would benefit from addition of alow dose ACEi. CONTINUE metoprolol succinate 50 mg once daily START lisinopril 5 mg once daily Discussed to monitor for symptoms of low blood pressure such as dizziness and/or lightheadedness Ordered BMP to monitor for increase in serum creatinine and potassium level Encouraged patient to call S to check on insurance coverage and update us with the information hereceives. States he has phone number. Follow-up Patient is scheduled to see PCP team on 11/06. Patient to have f/up with PharmD team on 11/21/2022 @ 130 PM. Patient verbalized understanding of instructions. Vinayak Brunner PharmD, [facility] PGY1 Clinical Mine Engineering Superintendent The majority of the pharmacy visit (> 50%) was spent counseling and/or coordinating care for thepatient. interaction: virtual time was 30 minutes. * Kye Meade RPh - 10/02/2022 11:30 AM EDT The patient's case was discussed with the pharmacy graduate intern who interviewed the patient. Ruelas elements of history confirmed during office visit. The progress note reflects my input and comments. Kye Meade PharmD, [facility] Primary Care Clinical Pharmacist documented in this encounterMercy [facility]04-07-[facility]23 History of Present illness Narrative* Mayra Osorio - 09/28/2022 4:17 AM EDT Your patient, Denver Hollingsworth, could not have the sleep study you ordered due to noshow. We will call the patient and make a reasonable attempt to reschedule the sleep study. Please note, your orders will still be valid for one year. Thank you for your attention. * Avila Mullins III, PhD - 09/14/2022 3:42 PM EDT September 14, 2022 Standing PSG Orders signed in the last 90 days None Future PSG Orders signed in the last 90 days Ordered Auth. provider CONSULT TO SLEEP MEDICINE - ADULT [[id number]] 08/14/22 Britney Cervantes APRN.CHILD & ADOLESCENT PSYCHIATRIST Assoc. diagnoses: BERYL (obstructive sleep apnea) [G47.33] Q: Does consulting provider have [facility] Epic access?: A: Yes POLYSOMNOGRAM (PSG) [[id number]] 08/14/22 Britney Cervantes APRN.CHILD & ADOLESCENT PSYCHIATRIST Assoc. diagnoses: BERYL (obstructive sleep apnea) [G47.33] Q: Indications - Select All That Apply: A: Obstructive sleep apnea Q: STOP-BANG conditions - Select All That Apply: A: GENDER = male A2: high blood PRESSURE A3: NECK circumference (male >43 cm/17 in; female > 41 cm/16 in) A4: OBSERVED sleep apnea A5: TIREDNESS, fatigue or sleepiness during the day A6: SNORING that is loud or disruptive Q: Comorbidities: A: Cognitive or physical impairment Q: Is the patient non-ambulatory or will they be accompanied by a caregiver?: A: No Q: Current use of supplemental oxygen during sleep period?: A: No Q: Add supplemental oxygen if needed per sleep lab policy?: A: Yes Q: Is this a repeat Sleep Study?: A: Yes Q: Select the indication for the repeat Sleep Study.: A: Continuing or worsening symptoms All Prior Sleep Studies (past 365 days) Some values may be hidden. Unless noted otherwise, only the newest values recorded on each date aredisplayed. Sleep Studies CONSULT TO SLEEP MEDICINE - ADULT Future Expected: Expires: 08/14/23 HOME SLEEP APNEA TEST (HSAT) Date: 05/08/22 POLYSOMNOGRAM (PSG) Future Expected: Expires: 08/14/23 BMI Readings from Last 2 Encounters: 08/14/22 : 34.81 kg/m 06/04/22 : 32.99 kg/m 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 of hyperactivity diagnosed in childhood Back pain 02/12/2012 Bipolar disorder (HCC) Chronic post-traumatic headache Closed fracture of dorsal (thoracic) vertebra without mention of spinal cord injury 04/03/2012 Corns and callosities 12/05/2009 Depressive disorder, not elsewhere classified 06/10/2012 DIABETES MELLITUS TYPE II-UNCOMPL 08/30/2008 Dysmetabolic syndrome X 07/21/2008 Gastroesophageal reflux disease with esophagitis Nonspecific abnormal results of liver function study 04/06/2005 Ferritin 225, HBsAg and Hep C negative in 5-09 U/S Fatty Liver BERYL (obstructive sleep apnea) DME [facility] Home Respiratory Pain in joint, lower leg 06/05/2012 Substance abuse (HCC) Tobacco use Unspecified essential hypertension 08/30/2008 The medical record was reviewed to determine if the proposed sleep study conforms to the AASM Practice Parameters for the Indications for Polysomnography and Related Procedures, or if the sleep studyis indicated for other reasons. Indications for study: BERYL previously diagnosed: Evaluate response to PAP therapy Sleep study to be performed: Split Study-Polysomnogram with PAP titration Special instructions: Split night study if AHI > 15. Start with 5 cmH2O then titrate per protocol Add EtCO2 and Transcutaneous CO2 if available Jose Villafuerte RPSGT,RST, BA Sleep Medicine Staff Note: I have read the above protocol, edited as needed, and agree to the plan. Avila Mullins III, PhD 8:49 AM, 09/27/2022 * Joy Gomezmelania - 09/14/2022 8:38 AM EDT September 14, 2022 An order has been received for Polysomnogram (PSG) from pratik Macias. [facility] Staff. Visit prep complete. Comments :No The sleep study is scheduled for 09/27. Insurance: Payor: [employer] MEDICA[employer] / Plan: [employer] / Product Type: Medicaid / Payer/Plan Subscr Sex Relation Sub. Ins. ID Effective Group Num 1. [employer] HI* [place] HOLLING[place]ORTH 1980 Male Self [id number] 07/25/22 [address] Joy Zacarias documented in this encounterMercy Health [facility] Hospital03-30-2023 Miscellaneous Notes* Telephone Encounter - Kye Meade [facility] - 09/20/2022 8:48 AM EDT I tried calling patient today to discuss Ozempic vs Trulicity but was unable to reach. Will plan totouch base with patient at scheduled PharmD f/up on 10/02. Cara - Based on my conversation with patient several weeks ago, I believe the main reasons for SW referral were due to concern of med access issues and losing insurance. Since we now know that he actually still does have insurance, I do not know of other reasons for SW involvement at this time. I think it would be fine to close the note and I can follow-up with him on 10/02 to see if there are other resources that he needs your assistance with. Also, I will plan to ask if he learned when is insurance coverage is set to end in case he will need you to assist with signing up with another insurance plan. Thank you! Kye * Telephone Encounter - CARMEL Barnes - 09/20/2022 8:32 AM EDT Any further assistance needed by SW, or can note be closed? * Telephone Encounter - Dayana Toscano LPN - 09/18/2022 4:19 PM EDT Called pt and He rec'd the decom. He just go his first reading. Pt reports pharmacy filled 3 months of trulicity. He will use this until ozempic PA is reviewed. * Telephone Encounter - Kye Meade RP - 09/18/2022 1:46 PM EDT Mayur called patient to discuss transition from Trulicity to Ozempic. Unable to reach patient or LMOM since voicemail box is not yet set up. If anyone speaks to the patient directly, please relay the following: Patient would be due for Ozempic on Saturday. If he does not have it by then, it is OK if he is delayed several days before starting the medication. If patient is unable to get Ozempic, he will need to let me know so I can orderTrulicity instead. Kye Meade PharmD, [facility] Primary Care Clinical Pharmacist * Telephone Encounter - Dayana Toscano LPN - 09/18/2022 10:07 AM EDT Answering the PA question for ozempic. Com[facility]eds [facility]. It was marked urgent review but still can take several days. Reviewed and still in process. * Telephone Encounter - CARMEL Barnes - 09/18/2022 9:31 AM EDT Patient called Sw and notes that he was not able to receive dexcom cgm. [facility] did not have dexcom in stock. Patient did report that [facility] provided him with freestyle jose sensor until dexcom comesin stock. Patient notes that [facility] also noted that patient ozempic needed clearance by provider office. Swnotes that Dayana looks to be working on prior auth. Sw unsure of status of prior auth for ozempic.Patient notes on Saturday he typically would take his Trulicity. Patient wondering if will have ozempic or what she he do if he does not have the ozempic. Sw noted that she would send note to Pallavi Rodriguez and Dayana for review and response. documented in this encounterMercy Health Willard Hospital03-29-2023 History of Present illness Narrative* Marilee Rogers Pharm-T - 09/19/2022 11:34 AM EDT Spoke with patient and he was told he still has [place] Medicaid and he no longer needed to complete the process through the PAP program. Marilee Rogers Pharm-T September 19, 2022 11:35 AM * Marilee Rogers Pharm-T - 09/12/2022 10:19 AM EDT This patient has been referred by pharmacy for marble worker patient assistance program senior java web application developer. STATUS OF APPLICATION: Can be viewed under the encounter Additional Documentation > SmartForms:[facility] RX AMB [facility] PATIENT ASSISTANCE Completed forms sent to providers for signatures and/or to marble worker will be available under Scanned Documents. The finalized form can be found under PAP_Medication Name_Complete. PAP TechnicianTeam will submit and track progress on the completed PAP application. Please do NOT fax to marble worker unless directed by the PAP Fishing Rod Assembler Team. Please see SmartForm described above for specifics. Sent to patient: 09/12/2022-Sent to office for patient to sign, per patients request No further steps needed, patient has Medicaid. Will close encounter. A new referral will be needed if anything changes. Sent to prescriber: Sent to marble worker: documented in this encounterMercy Health Willard Hospital03-27-2023 Miscellaneous Notes* Telephone Encounter - Kye Meade RPh - 09/17/2022 4:26 PM EDT Noted, that is excellent news. Kye Meade PharmD, [facility] Primary Care Clinical Pharmacist * Telephone Encounter - CARMEL Barnes - 09/17/2022 3:49 PM EDT Patient left Sw message that he spoke to [facility] and his diabetes medications were being covered under his [employer] and his dexcom was covered as well. Patient notes in message would like Sw to pass message along to Pallavi Rodriguez. documented in this encounterMercy Health Willard Hospital03-24-2023 Miscellaneous Notes* Telephone Encounter - Kye Meade RPh - 09/14/2022 2:08 PM EDT Called and spoke with pharmacist. Requested to pursue PA for Ozempic since that is the med patient would prefer to switch to. Advised to delete the script for Trulicity at this time. Kye Meade PharmD, [facility] Primary Care Clinical Pharmacist * Telephone Encounter - Delano Black RN - 09/14/2022 1:30 PM EDT [facility] reports they received a ozempic rx today and a trulicity rx today, signed by pcp. [facility] reports ozempic is new and requires a PA- they will put it on hold until they hear back from provider. Reports trulicity is the one patient has been on, and insurance covers it. States patient should not be on both. Asking which one provider wants patient to take. [facility] plans on filling the trulicity but not until tomorrow. Please phone [facility] with reply. documented in this encounterMercy Health Willard Hospital03-22-2023 Miscellaneous Notes* Telephone Encounter - CARMEL Barnes - 09/12/2022 4:22 PM EDT Aline and nurse had sent message to Patrizia to see about assisting patient with applying for HCAP. Vanessa sent reply back to Aline that patient Medicaid is still showing active in our CC system. Aline will forward message to Pallavi Rodriguez so that she is aware in regards to patient assistance forms. * Telephone Encounter - Kye Meade RPh - 09/12/2022 11:25 AM EDT Called patient, scheduled phone appt with PharmSamia for this Saturday, 09/15 at 11:30 AM. Patient states he currently has 2 boxes of Lantus, 1 box of Humalog, a lot of metformin, and no Trulicity. Patient also stated he needed a Jose monitor. Advised him he will need to do fingersticks since he doesn't have insurance coverage at this time. Patient doesn't want to do finger sticks and is asking to pay out of pocket for the Jose. PharmD informed him he may be eligible for a coupon that would reduce the cost to ~$75/month. Offered to provide him a phone number but patient didn't want to write the number down at this time. Will discuss at upcoming visit. [place] - thank you so much for all of your assistance thus far! Kye Meade PharmD, [facility] Primary Care Clinical Pharmacist * Telephone Encounter - Vy Finley RN - 09/12/2022 8:59 AM EDT Spoke to pt. Informed of below updates. Pt. states he only has 2 days of sensors left of his Jose. This nurse instructed him to revert back to using a glucometer until he can get more sensors. Pt. states he is currently using the following regimen: 1000 mg Metformin BID 50 units Lantus BID 12 units Humalog with meals, q HS and sliding scale Trulicity 1.5 mg q Wed. Pt. states he is taking everything as directed. States he just checked his blood sugars moments agoand it was 161. States it has been much better controlled recently. Informed him of need for phone appt. with Kye. Pt. states he needs to meet with a PFS to discuss HCAP program as well. Please reach out to pt to schedule these appts. Thank you! Vy Finley RN * Telephone Encounter - Kye Meade RPh - 09/11/2022 4:01 PM EDT Andrew Marroquin, Thank you for the information! No need to confirm, I will start the PAP application paperwork with the understanding that the patient is uninsured. I will plan to apply for PAP through [employer] -we can order Ozempic (to replace Trulicity), Tresiba (to replace Basaglar) and Novolog (to replace H umalog) so that all medications go through the same marble worker and therefore less paperwork. In the meantime, if you are able to reach the patient can you please confirm his insulin dosing andsupply? If he runs out of his insulins and doesn't have insurance, we will likely need to transition him to NPH and regular insulin which can be purchased at [facility] for ~$25/vial. It would be best if he were to have a phone appt with me to make that change if possible. Thanks so much! Kye * Telephone Encounter - CARMEL Barnes - 09/11/2022 12:20 PM EDT Patient reports that the letter received from S/Medicaid states that his insurance ended August. If you want me to confirm this with Patient Executive Chef Assistant,let SW know. * Telephone Encounter - Kye Meade RPh - 09/11/2022 11:56 AM EDT Cara - do you know if the patient has any insurance coverage at this time? If he does have coveragethen he will not be eligible for any patient assistance programs. [employer] has stopped accepting new applications for Trulicity through PAP because of the shortage, though they do make exceptions for patients who were receiving Trulicity the previous year. I don't know for certain, but I don't believe the patient was receiving Trulicity through PAP last year. If that is the case then he won't be able to get it now. We would have to pursue Ozempic. Please let me know the status of his insurance. If uninsured, I can start the PAP application for Ozempic. Thanks! Kye * Telephone Encounter - CARMEL Barnes - 09/11/2022 11:07 AM EDT Patient and Sw dicussed his medicaid and medication issues. Patient reports that he received his denial letter from Medicaid as his has placed him over income. Patient reports that he and spouse are still together. They had argued and then worked it out.Patient reports that spouse had told him that she threw his medication away, but she did not throw medication out. Patient reports that he has 3 weeks worth of medication, except for his trulicity, patient reports being out of this medication. Patient states that he was looking at [employer] for Trulicity. 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 Sw notes that she will send note to Pallavi Rodriguez and Dr. Jane to see about medications and how to proceed with patient assistance for patient medication. Kye, Let me know how we can work together on patient medication list and applying for patient assistanceoptions. * Telephone Encounter - CARMEL Barnes - 09/06/2022 11:33 AM EDT Aline called patient due to social work referral received due to concerns in regards to patient losinginsurance and not having medications. No answer and no vmail set up. Sw can send patient MyChart message with Medicaid Shared Services number so that he can call and check on his Medicaid status. Aline will also include [employer] in regards to help with short term cost of medications. documented in this encounterMercy Health Willard Hospital03-16-2023 Miscellaneous Notes* Telephone Encounter - Kye Meade RPh - 09/06/2022 9:57 AM EDT Patient no-showed for PharmD visit today. Called patient, he admits he forgot about the appointment. 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 Was agreeable to scheduling PharmD appt on 10/25, no sooner. Patient states that he and his got in a big argument (possible divorce?) and she threw away his medications and now he no longer has health insurance. States he is out of everything. Not taking anything for diabetes or for his mental health at this time. PharmD stressed the urgency of getting back on his medications, discussed how not taking meds untilMay is not acceptable. 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 PharmSamia is placing a referral to to reach out to patient to assist with getting insurance and access to medications, healthcare, etc. Kye Meade PharmD, [facility] Primary Care Clinical Pharmacist documented in this encounterMercy Health Willard Hospital03-13-2023 Miscellaneous Notes* Telephone Encounter - Rae Trammell LPN - 09/03/2022 1:37 PM EDT Phoned patient and went over notes below with understanding. * Telephone Encounter - Britney Cervantes APRN.CNS - 09/03/2022 1:07 PM EDT There was no H. pylori in epic. If he is having black stools abdominal pain nausea vomiting and cannot keep fluids or foods down since Saturday he should go to the emergency department promptly for further evaluation. * Telephone Encounter - Rae Trammell LPN - 09/03/2022 8:22 AM EDT Patient calling began Saturday with black diarrhea and nausea and vomiting, foul smelling belching, abdominal cramping. Patient asking if his H-pylori has come back? Patient said he can not keep broth or water down since Saturday. Having no GERD. Patient asking if PCP wants him to have test done? Please advise documented in this encounterMercy Health Willard Hospital03-13-2023 Miscellaneous Notes* Telephone Encounter - Willa Ward - 09/03/2022 8:17 AM EDT Patient called to report repetitive nausea/vomiting when attempting to ingest solids or liquids. Hewas transferred to the triage nurse line. documented in this encounterMercy Health Willard Hospital03-07-2023 Miscellaneous Notes* Telephone Encounter - Amanda Markham RN - 08/28/2022 3:50 PM EST Patient has been identified by name and date of : Yes, Provider Dr Jane Date 08/28/22 Time 1555 Patient phones for refill(s): Requested Prescriptions Pending Prescriptions Disp Refills metoprolol succinate ER (TOPROL XL) 50 mg 24 hr tablet 30 tablet 2 Sig: Take 1 tablet by mouth once daily. Date of last office visit in primary care: 08/14/22 Future visit: 11/06/22 Last 2 Encounter Wt Readings: Date: Wt: 08/14/2022 129.7 kg (286 lb) 06/04/2022 122.9 kg (271 lb) Previous labs/tests for medication: Blood Pressure: BUN (mg/dL) Date Value 08/14/2022 12 09/19/2020 9 Sodium (mmol/L) Date Value 08/14/2022 136 09/19/2020 130 Last 1 Encounter BP Readings: Date: BP: 08/14/2022 124/84 Please advise. Thank you. Amanda Markham RN documented in this encounterMercy Health Willard Hospital03-02-2023 History of Present illness Narrative* Keiry Smiley, OD - 08/23/2022 2:19 PM EST 1. Type 2 diabetes mellitus without retinopathy (HCC) Risk of diabetic changes and vision loss can be minimized by tight control of blood sugar, blood pressure, and cholesterol levels. Educated patient to continue care with primary care doctor and/or culturist to maintain optimum levels as they are important to avoid ocular complications. Encouraged patient to call the office immediately with any changes to vision or visual concerns. Advised to not wait until the next scheduled exam. 2. Myopia, bilateral 3. Regular astigmatism of both eyes 4. Presbyopia Finalized spec rx Monitor 1 year Keiry Smiley, OD August 23, 2022 2:19 PM documented in this encounterMercy Health Willard Hospital02-24-2023 Miscellaneous Notes* Telephone Encounter - Melina Garcia LPN - 08/17/2022 2:02 PM EST Patient notified of providers message and verbalized understanding. Patient states not consistent with DM meds, does not need refills. * Telephone Encounter - Britney Cervantes APRN.CHILD & ADOLESCENT PSYCHIATRIST - 08/17/2022 12:41 PM EST Diabetes is uncontrolled. Other testing is negative. Recommend he resume diabetic diet. Walking or other activity daily to help control blood sugars. If not taking diabetes medications consistently recommend he do so. If not please route back to me so can make adjustments to his dosing. I see no recent fills of insulin,on EPIC outside medication review, does he need refills sent to pharmacy? documented in this encounterMercy Health Willard Hospital02-21-2023 History of Present illness Narrative* Britney Cervantes APRN.CNS - 08/14/2022 10:40 AM EST SUBJECTIVE: HEPATITIS B(1 of 3 - 3-dose series) Never done HIV SCREENING Never done PNEUMOCOCCAL(2 - PCV) due on 11/28/2010 COVID-19 VACCINE(3 - Booster for Moderna series) due on 02/08/2021 HBA1C due on 08/09/2022 URINE ALBUMIN:CREATININE RATIO due on 08/28/2022 LDL CHOLESTEROL due on 08/28/2022 DILATED RETINAL EXAM due on 08/31/2022 HPI Denver Hollingsworth is a 42 year old male.PMH significant for ACTIVE PROBLEM LIST Attention Deficit Disorder Obesity, Unspecified Uncontrolled Type 2 Diabetes Mellitus With Hyperglycemia (Hcc) Essential Hypertension Beryl (Obstructive Sleep Apnea) Cavus Deformity of Foot, Acquired Cervicalgia Anxiety and Depression Mixed Hyperlipidemia Spinal Stenosis, Lumbar Region, Without Neurogenic Claudication Right Testicular Pain Tobacco Use Gastroesophageal Reflux Disease With Esophagitis Bipolar Disorder (Hcc) Substance Abuse ([facility]) Obesity, Class II, Bmi 35-39.9 Contusion of Unspecified Back Wall of Thorax, Initial Encounter Acute Laryngitis Acute Lumbosacral Myofascial Strain Back Contusion Chronic Back Pain Bronchitis Cervical Strain Cocaine Dependence With Intoxication (Hcc) Gallstone Pancreatitis Gastroesophageal Reflux Disease Hyperosmolar Non-Ketotic State in Patient With Type 2 Diabetes Mellitus (Hcc) Injury of Head Laceration of Leg, Right Nonspecific Colitis Orchitis and Epididymitis Ptsd (Post-Traumatic Stress Disorder) Viral Infection HPI excerpted from previous visits: Presents today for follow-up visit. Last seen 09/2020. He notes not having insurance coverage. Unable to afford insulin, purchasing the $30 or vials. States he is taking 25 to 26 units of long-acting insulin daily. States taking all oral medications, able to pay out of pocket for all of these for about $73 per month. Notes going to 180 for counsleing. No recent psychiatry visit. Notes needing medication for sleep; took trazodone in the past which seemed to help. Prior right testicular pain noted 2018, has not yet had planned surgery due to uncontrolled diabetes mellitus. Since last seen by me he was admitted to [facility] for [facility] September 22, 2021. He had a follow-up visit with Michelle Jane MD Nov 15 2021. He was referred to structured diabetes program but did not schedule follow-up appointment. He was seen at [facility] ER December 12 for chest pain abdominal pain nausea vomiting and diarrhea. He was noted to have acute laryngitis acute epididymoorchitis and back contusion. Presents today noting he is going to detention in March. Notes abnormal movements of arms in evening x 2 weeks. He reports current psychiatric medications, these were ordered during psychiatric hospital admission. Not currently seeing psychiatric provider. He reports taking medications as ordered however no recent refills of routine medications noted in epic review of outside meds. Since last seen he had a Pharm.D. appointment regarding diabetes. Dulaglutide 1.5mg Qweek started. Today reports doing well with this. Notes headaches. Notes did not complete HSAT, was too uncomfortable. Not treating BERYL currently. STOP BANG Questionnaire 1. Snoring Do you snore loudly (louder than talking or loud enough to be heard through closed doors)? YES 2. Tired Do you often feel tired, fatigued, or sleepy during daytime? YES 3. Observed Has anyone observed you stop breathing during your sleep? YES 4. Blood Pressure Do you have or are you being treated for high blood pressure? YES 5. BMI BMI more than 35 kg/m2? NO 6. Age Age over 50 yr old? NO 7. Neck circumference Neck circumference greater than 40 cm? YES 49 cm 8. Gender Gender male? YES * Neck circumference is measured by staff High risk of BERYL: answering yes to three or more items Low risk of BERYL: answering yes to less than three items DIABETES MELLITUS: He reports blood sugars at home of been in better control. Without report of excessive thirst or increased frequency of urination, chest pain or dyspnea , numbness, tingling or pain in extremities, new or unusual visual symptoms, low sugar/hypoglycemic reactions, weight loss/gain, lightheadedness/dizziness and bowel changes/loose stools. Tries to stick with a diabetic diet doeshave indiscretions. Patient's last HgA1C was Hemoglobin A1C (%) Date Value 02/06/2022 7.9 08/28/2021 11.1 09/19/2020 12.7 01/19/2019 12.0 Hemoglobin A1C (POCT) (%) Date Value 08/03/2019 10.4 ) Hyperlipidemia. Mr. Hollingsworth reports doing well on current therapy His most recent lipid panels are: Cholesterol, Total (mg/dL) Date Value 08/28/2021 179 09/19/2020 542 10/20/2018 235 HDL Cholesterol (mg/dL) Date Value 08/28/2021 34 09/19/2020 12 10/20/2018 23 LDL Cholesterol (mg/dL) Date Value 08/28/2021 96 09/19/2020 Unable to calculate due to increased Triglycerides. See LDL-Chol, Direct. 10/20/2018 Unable to calculate due to increased Triglycerides. See LDL-Chol, Direct. Triglyceride (mg/dL) Date Value 08/28/2021 244 09/19/2020 4,520 10/20/2018 1,339 HTN: Without report of chest pain, palpitations, dyspnea, peripheral edema, orthopnea, fatigue and PND. Last 14 Encounter BP Readings: Date: BP: 08/14/2022 124/84 06/04/2022 132/92 04/25/2022 129/85 02/06/2022 146/92 11/15/2021 142/90 09/15/2021 142/98[Follows PCP for blood pressure per patient.[ 08/30/2021 146/96 08/29/2021 146/96[bp niles average[ 11/14/2020 144/92 10/10/2020 158/84 10/04/2020 142/92 09/23/2020 136/84 09/19/2020 138/98 05/18/2020 141/90 Review of Systems Constitutional: Negative. Respiratory: Negative. Cardiovascular: Negative. Endocrine: Negative. Objective BP 124/84 Pulse 97 Resp 16 Wt 129.7 kg (286 lb) SpO2 100% BMI 34.81 kg/m Physical Exam Vitals and nursing note reviewed. Constitutional: Appearance: Normal appearance. HENT: Head: Normocephalic. Right Ear: Tympanic membrane and ear canal normal. Mouth/Throat: Mouth: Mucous membranes are moist. Pharynx: Oropharynx is clear. No oropharyngeal exudate or posterior oropharyngeal erythema. Eyes: Conjunctiva/sclera: Conjunctivae normal. Neck: Thyroid: No thyromegaly. Vascular: No carotid bruit. Cardiovascular: Rate and Rhythm: Normal rate and regular rhythm. Pulses: Carotid pulses are 2+ on the right side and 2+ on the left side. Radial pulses are 2+ on the right side and 2+ on the left side. Dorsalis pedis pulses are 2+ on the right side and 2+ on the left side. Heart sounds: Normal heart sounds. Pulmonary: Effort: Pulmonary effort is normal. Breath sounds: Normal breath sounds. Abdominal: General: Bowel sounds are normal. There is no distension. Palpations: Abdomen is soft. There is no mass. Tenderness: There is no abdominal tenderness. There is no guarding. Musculoskeletal: Right lower leg: No edema. Left lower leg: No edema. Lymphadenopathy: Cervical: Right cervical: No superficial cervical adenopathy. Skin: General: Skin is warm and dry. Neurological: Mental Status: He is alert. Mental status is at baseline. ALLERGIES Allergen Reactions Fibrate Anti-Lipide* Myalgia Hydrocodone Bitartr* GI Upset Vicodin [Hydrocodon* GI Upset Medications buPROPion XL (WELLBUTRIN XL) 150 mg 24 hr tablet dulaglutide (TRULICITY) 1.5 mg/0.5 mL pen injector Inject 1.5 mg subcutaneously one time a week. insulin needles, DISPOSABLE, (BD INSULIN PEN NEEDLE UF) 31 gauge x 5/16 Use to inject insulin as directed. Up to 5 daily injections albuterol HFA (PROVENTIL HFA, VENTOLIN HFA) 90 mcg/actuation inhaler Two puffs every 4 hours as need for wheezing, SOB. metoprolol succinate ER (TOPROL XL) 50 mg 24 hr tablet Take 1 tablet by mouth once daily. omeprazole (PRILOSEC) 20 mg capsule Take 1 capsule by mouth daily before breakfast. sertraline (ZOLOFT) 50 mg tablet Take 1 tablet by mouth once daily. OXcarbazepine (TRILEPTAL) 300 mg tablet Take 1 tablet by mouth twice daily. atorvastatin (LIPITOR) 20 mg tablet Take 1 tablet by mouth daily at bedtime. For cholesterol. metFORMIN (GLUCOPHAGE) 500 mg tablet Take 2 tablets by mouth twice daily with meals. lisinopril (ZESTRIL, PRINIVIL) 20 mg tablet Take 1 tablet by mouth once daily. Dose change- take one daily traZODone (DESYREL) 100 mg tablet Take 1 tablet by mouth daily at bedtime. flash glucose sensor (FREESTYLE JOSE 2 SENSOR) kit Apply new sensor every fourteen (14) days to upper arm. blood sugar diagnostic (TRUE METRIX GLUCOSE TEST STRIP) test strip Check sugars 3 times daily and as directed. DM type 2 E11.65 Insulin: yes insulin glargine (LANTUS SOLOSTAR, BASAGLAR KWIKPEN) 100 unit/mL (3 mL) Inject 30 Units subcutaneously twice daily. Increase by 2 units every 3 days for goal FBG <130. Max of 90 units/day. insulin lispro (HUMALOG U-100 INSULIN) 100 unit/mL crtg Take 12 units with meals. Insulin Sliding Scale: BG 70-150, give 0 units; BG 151-180, give 4 units; BG 181-220, give 6 units; BG 221-260, give 8 units; BG 261-300, give 10 units; BG 301-340, give 12 units; BG 341-380, give 14 units and call provider. Blood-Glucose Meter monitoring kit Glucose Meter of Choice (whatever is covered by insurance) - Kit- Dx: Type 2 DM - Uncontrolled E11.65 Lancets lancets Choose lancets covered by insurance. Test blood sugar(s) 3 times daily. Dx: Type 2 DM - Uncontrolled E11.65 Insulin: Yes naproxen (NAPROSYN) 500 mg tablet Take 1 tablet by mouth twice daily as needed for pain (for pain/inflammation or headache). Take with food. famotidine (PEPCID) 20 mg tablet Take 1 tablet by mouth at bedtime as needed. benzonatate (TESSALON PERLES) 100 mg capsule Take 1-2 capsules by mouth three times daily as neededfor cough. (Patient not taking: Reported on 08/14/2022) sodium chloride (SALINE NASAL) 0.65 % nasal spray Use 2-3 Sprays in the nose three times daily. fornasal congestion (Patient not taking: Reported on 08/14/2022) urea (CARMOL) 40 % Apply to affected area twice daily. (Patient not taking: Reported on 08/14/2022) lurasidone (LATUDA) 40 mg tablet Take 1 tablet by mouth daily with dinner. (Patient not taking: Reported on 08/14/2022) Blood Pressure Monitor (BLOOD PRESSURE KIT) Dx: R09.89 labile blood pressure, I10 hypertension (Patient not taking: No sig reported) CPAP Autopap 5-20 cm H2O, Heat Humidity, suitable mask, [employer] supplies, opt Chinstrap, G47.33. (Patient not taking: No sig reported) 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 of hyperactivity diagnosed in childhood Back pain 02/12/2012 Bipolar disorder (HCC) Chronic post-traumatic headache Closed fracture of dorsal (thoracic) vertebra without mention of spinal cord injury 04/03/2012 Corns and callosities 12/05/2009 Depressive disorder, not elsewhere classified 06/10/2012 DIABETES MELLITUS TYPE II-UNCOMPL 08/30/2008 Dysmetabolic syndrome X 07/21/2008 Gastroesophageal reflux disease with esophagitis Nonspecific abnormal results of liver function study 04/06/2005 Ferritin 225, HBsAg and Hep C negative in 10-30 /S Fatty Liver BERYL (obstructive sleep apnea) DME [facility] Home Respiratory Pain in joint, lower leg 06/05/2012 Substance abuse (HCC) Tobacco use Unspecified essential hypertension 08/30/2008 Social History Tobacco Use Smoking status: Every Day Packs/day: 0.50 Types: Cigarettes Start date: 08/11/1995 Smokeless tobacco: Never Vaping Use Vaping Use: Never used Substance Use Topics Alcohol use: No Drug use: No Component Latest Ref Rng & Units 09/19/2020 09/19/2020 09/19/2020 08/28/2021 11:23 AM 11:23 AM 11:26 AM WBC 3.70 - 11.00 k/uL 11.95 (H) 8.69 RBC 4.20 - 6.00 m/uL 5.52 5.69 Hemoglobin 13.0 - 17.0 g/dL 17.7 (H) 16.7 Hematocrit 39.0 - 51.0 % 46.0 48.6 MCV 80.0 - 100.0 fL 83.3 85.4 MCH 26.0 - 34.0 pg 31.0 29.3 MCHC 30.5 - 36.0 g/dL 37.2 (H) 34.4 RDW-CV 11.5 - 15.0 % 12.0 12.3 Platelet Count 150 - 400 k/uL 198 130 (L) MPV 9.0 - 12.7 fL 12.0 12.4 Neut% % 51.1 Abs Neut (ANC) 1.45 - 7.50 k/uL 4.45 Lymph% % 36.4 Abs Lymph 1.00 - 4.00 k/uL 3.16 Meriwether% % 8.9 Abs Meriwether <0.87 k/uL 0.77 Eosin% % 2.1 Abs Eosin <0.46 k/uL 0.18 Baso% % 0.8 Abs Baso <0.11 k/uL 0.07 Immature Gran % % 0.7 IMMATURE GRANS (ABS) <0.10 k/uL 0.06 NRBC /100 WBC 0.0 Absolute nRBC <0.01 k/uL <0.01 <0.01 DTYPE Auto Protein, Total 6.3 - 8.0 g/dL 7.8 7.0 Albumin 3.9 - 4.9 g/dL 4.4 4.5 Calcium 8.5 - 10.2 mg/dL 9.5 9.7 Bilirubin, Total 0.2 - 1.3 mg/dL 0.4 0.3 Alkaline Phosphatase 38 - 113 U/L 101 80 AST 14 - 40 U/L 22 18 Glucose 74 - 99 mg/dL 436 (H) 301 (H) BUN 9 - 24 mg/dL 9 13 Creatinine 0.73 - 1.22 mg/dL 0.59 (L) 0.66 (L) Sodium 136 - 144 mmol/L 130 (L) 135 (L) Potassium 3.7 - 5.1 mmol/L Unable to assay due to interference from hemolysis. Suggest reorder as clinically . . . 4.4 Chloride 97 - 105 mmol/L 96 (L) 98 CO2 22 - 30 mmol/L 18 (L) 25 Anion Gap 9 - 18 mmol/L 16 12 ALT 10 - 54 U/L 22 22 eGFR- >60 eGFR-All Other Races . >60 eGFR >=60 mL/min/1.73m 121 Cholesterol, Total <200 mg/dL 542 (H) 179 Triglyceride <150 mg/dL 4,520 (H) 244 (H) HDL Cholesterol >39 mg/dL 12 (L) 34 (L) LDL Cholesterol <100 mg/dL Unable to calculate due to increased Triglycerides. See LDL-Chol, Direct. 96 Non HDL Cholesterol <130 mg/dL 530 (H) 145 (H) Fasting Time hrs 0 10 VLDL Cholesterol <30 mg/dL Unable to calculate due to increased Triglycerides. See LDL-Chol, Direct. 514 (H) 49 (H) TC:HDL Ratio <5.10 45.17 (H) 5.26 (H) LDL:HDL Ratio <2.54 Unable to calculate due to elevated Triglycerides. 2.82 (H) Creatinine, Ur Random (UCRR) 20.0 - 300.0 mg/dL 56.6 81.6 Albumin, Urine Random mg/L 671.0 82.1 Albumin/Creat Ratio <30 mg/g 1,186 (H) 101 (H) Hemoglobin A1C 4.3 - 5.6 % 12.7 (H) 11.1 (H) Estimated Average Glucose mg/dL 318 272 LDL Cholesterol, Direct <100 mg/dL 16 Vitamin D 25 Hydroxy 31.0 - 80.0 ng/mL 7.2 (L) ASSESSMENT/PLAN: 1. Essential hypertension - ICD9: 401.9, ICD10: I10 (primary diagnosis) controlled - Continue current medication(s) - Encouraged dietary sodium restriction/DASH diet - Recommended regular aerobic exercise. 2. Mixed hyperlipidemia - ICD9: 272.2, ICD10: E78.2 Recommend a plant based diet such as Mediterranean diet with plenty of vegetables, fruits,whole grains, fish, chicken, turkey or plant proteins and routine exercise such as walking Stable, currently controlled, continue to monitor. 3. BERYL (obstructive sleep apnea) - ICD9: 327.23, ICD10: G47.33 He notes headache, not treating BERYL. Endorse recheck of sleep apnea. States he was unable to complete home test due to feeling uncomfortable. As needed naproxen for now. - CONSULT TO SLEEP MEDICINE - ADULT - POLYSOMNOGRAM (PSG) - NAPROXEN 500 MG TABLET - FAMOTIDINE 20 MG TABLET 4. Uncontrolled type 2 diabetes mellitus with hyperglycemia (HCC) - ICD9: 250.02, ICD10: E11.65 Improved control. He has been seeing pharmacist. Continue with current treatment unchanged. Check lab work today and keep scheduled follow-up visit. Schedule appointment with ophthalmology. Keep appointment with podiatry. 5. Gastroesophageal reflux disease with esophagitis, unspecified whether hemorrhage - ICD9: 530.11,ICD10: K21.00 H improved control. Has been seeing pharmacist. e notes GERD symptoms with red sauce primarily. Otherwise well controlled Add famotidine while taking naproxen for headache. - FAMOTIDINE 20 MG TABLET 6. BMI 34.0-34.9,adult - ICD9: V85.34, ICD10: Z68.34 Notes he has been losing weight Britney Cervantes, DIGITAL STRATEGIST.CHILD & ADOLESCENT PSYCHIATRIST ASSESSMENT/PLAN: 1. Uncontrolled type 2 diabetes mellitus with hyperglycemia (HCC) - ICD9: 250.02, ICD10: E11.65 (primary diagnosis) 5. Type 2 diabetes mellitus with hyperglycemia, with long-term current use of insulin (HCC) - ICD9:250.00, 790.29, V58.67, ICD10: E11.65, Z79.4 Check A1c, previously uncontrolled DM 2. Anxiety and depression - ICD9: 300.00, 311, ICD10: F41.9, F32.A 3. Essential hypertension - ICD9: 401.9, ICD10: I10 Suboptimal control however no recent refills noted and outside med review so we will continue unchanged for now. - LISINOPRIL 20 MG TABLET - PRIMARY CARE SOCIAL WORK CONSULT 6. Primary insomnia - ICD9: 307.42, ICD10: F51.01 We will resume trazodone, can increase dose if needed - TRAZODONE 50 MG TABLET ASSESSMENT/PLAN: 1. Screening for HIV (human immunodeficiency virus) - ICD9: V73.89, ICD10: Z11.4 (primary diagnosis) - HIV 1 2 COMBO(AG/AB),WITH REFLEX TO DIFFERENTIATION 2. Encounter for immunization - ICD9: V03.89, ICD10: Z23 - HEPATITIS B VACCINE, ADULT AGE 20+, IM - PNEUMOCOCCAL VACCINE (PREVNAR 20) - [employer] COVID-19 VACCINE, AGE 12+ YR (RYAN TOP) 3. Bipolar affective disorder, current episode mixed, current episode severity unspecified (HCC) - ICD9: 296.60, ICD10: F31.60 Continue with current treatments for now Reporting abnormal upper extremity movements in the evenings x2 weeks, this may be a possible side effect of current psychiatric drug latuda States not currently seeing psychiatric provider. Recommend scheduling with psychiatry - SERTRALINE 50 MG TABLET - LURASIDONE 40 MG TABLET - OXCARBAZEPINE 300 MG TABLET - CONSULT TO PSYCHIATRY 4. Uncontrolled type 2 diabetes mellitus with hyperglycemia (HCC) - ICD9: 250.02, ICD10: E11.65 States improved control, recommend checking A1c today and adjusting medication accordingly. - HGB A1C - TRULICITY 0.75 MG/0.5 ML SUBCUTANEOUS PEN INJECTOR - ATORVASTATIN 20 MG TABLET - METFORMIN 500 MG TABLET - LISINOPRIL 20 MG TABLET 5. Essential hypertension - ICD9: 401.9, ICD10: I10 - LISINOPRIL 20 MG TABLET 6. Abnormal movements - ICD9: 781.0, ICD10: R25.9 - CONSULT TO PSYCHIATRY He has been going to the counseling center for follow-up with psychiatry needs. check labs today Recommend scheduling appointment with Dr. Smiley ophthalmology in August for DM eye exam January appointment with PCP or me to follow-up diabetes. Keep appointment with podiatry and PCP already scheduled Britney Cervantes APRN.CNS Medical Decision Making: Problems: Moderate: 2+ stable chronic illnesses Risk: Moderate: Drug management Medical Decision Making Level: 4 - Moderate [facility] of Present illness Narrative* Bianca Begum [facility] [place] - 08/01/2022 11:00 AM EST Primary Care Pharmacy Visit CC (Reason for Consult): Diabetes and Medication Reconciliation Goal: A1c < 7% Last Collaborating Physician/DIGITAL STRATEGIST Visit: 06/04/22 Denver Hollingsworth is a 42 year old male presenting for initial visit: This initial consult was conducted by telephone with the patient where the consult agreement was explained. The patient may decline or cancel the agreement at any time. After consideration, the patient consented to the pharmacy consult agreement and agreed to allow medications be collaboratively managed by a pharmacist. At last visit with CHILD & ADOLESCENT PSYCHIATRIST on 06/04/23 the following changes were made: prescribed benzonatate, and albuterol inhaler for acute viral illness. 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 Currently has Medicaid, believes he may be losing Medicaid coverage Has not received a denial letter yet Has not checked BG since March Stopped taking insulin States taking Metformin as directed Recently resumed Trulicity Does not like current pen needles, feels they are too small/short, gets bump under skin Current DM Medications: Basaglar 30 units twice daily Trulicity 0.75 mg weekly metformin 1000 mg BID Humalog 12 units with meals plus sliding scale GLYCEMIC CONTROL: Glucometer present at visit: No SMBG s: Not monitoring BG readings Hypoglycemia: denies ROS: Patient denies CP, SOB, GAMBINO, blurred vision, dizziness or lightheadedness Patient denies nausea, vomiting, diarrhea, abdominal pain Patient denies symptoms of hypoglycemia (sweating, anxiety, palpitations, hunger, and tremor) Patient denies symptoms of hyperglycemia (polyuria, polydipsia, polyphagia) Patient denies potential medication adverse effects MEDICATIONS: Pill bottles are not present Adherence: reports missed doses of insulin since March [facility] Diabetes supplies: ReliOn and Jose 2 CGM Organization System: pill box ACTIVE PROBLEM LIST Attention Deficit Disorder Obesity, Unspecified Uncontrolled Type 2 Diabetes Mellitus With Hyperglycemia (Hcc) Essential Hypertension Beryl (Obstructive Sleep Apnea) Cavus Deformity of Foot, Acquired Cervicalgia Anxiety and Depression Mixed Hyperlipidemia Spinal Stenosis, Lumbar Region, Without Neurogenic Claudication Right Testicular Pain Tobacco Use Gastroesophageal Reflux Disease With Esophagitis Bipolar Disorder (Hcc) Substance Abuse (Hcc) Obesity, Class II, Bmi 35-39.9 Contusion of Unspecified Back Wall of Thorax, Initial Encounter Acute Laryngitis Acute Lumbosacral Myofascial Strain Back Contusion Chronic Back Pain Bronchitis Cervical Strain Cocaine Dependence With Intoxication (Hcc) Gallstone Pancreatitis Gastroesophageal Reflux Disease Hyperosmolar Non-Ketotic State in Patient With Type 2 Diabetes Mellitus (Hcc) Injury of Head Laceration of Leg, Right Nonspecific Colitis Orchitis and Epididymitis Ptsd (Post-Traumatic Stress Disorder) Viral Infection 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 of hyperactivity diagnosed in childhood Back pain 02/12/2012 Bipolar disorder (HCC) Chronic post-traumatic headache Closed fracture of dorsal (thoracic) vertebra without mention of spinal cord injury 04/03/2012 Corns and callosities 12/05/2009 Depressive disorder, not elsewhere classified 06/10/2012 DIABETES MELLITUS TYPE II-UNCOMPL 08/30/2008 Dysmetabolic syndrome X 07/21/2008 Gastroesophageal reflux disease with esophagitis Nonspecific abnormal results of liver function study 04/06/2005 Ferritin 225, HBsAg and Hep C negative in 10-30 U/S Fatty Liver BERYL (obstructive sleep apnea) DME [facility] Home Respiratory Pain in joint, lower leg 06/05/2012 Substance abuse (HCC) Tobacco use Unspecified essential hypertension 08/30/2008 ALLERGIES Allergen Reactions Fibrate Anti-Lipide* Myalgia Hydrocodone Bitartr* GI Upset Vicodin [Hydrocodon* GI Upset Current Outpatient Medications Medication Sig benzonatate (TESSALON PERLES) 100 mg capsule Take 1-2 capsules by mouth three times daily as neededfor cough. albuterol HFA (PROVENTIL HFA, VENTOLIN HFA) 90 mcg/actuation inhaler Two puffs every 4 hours as need for wheezing, SOB. sodium chloride (SALINE NASAL) 0.65 % nasal spray Use 2-3 Sprays in the nose three times daily. fornasal congestion urea (CARMOL) 40 % Apply to affected area twice daily. metoprolol succinate ER (TOPROL XL) 50 mg 24 hr tablet Take 1 tablet by mouth once daily. omeprazole (PRILOSEC) 20 mg capsule Take 1 capsule by mouth daily before breakfast. sertraline (ZOLOFT) 50 mg tablet Take 1 tablet by mouth once daily. dulaglutide (TRULICITY) 0.75 mg/0.5 mL pen injector Inject 0.75 mg subcutaneously one time a week. lurasidone (LATUDA) 40 mg tablet Take 1 tablet by mouth daily with dinner. OXcarbazepine (TRILEPTAL) 300 mg tablet Take 1 tablet by mouth twice daily. atorvastatin (LIPITOR) 20 mg tablet Take 1 tablet by mouth daily at bedtime. For cholesterol. metFORMIN (GLUCOPHAGE) 500 mg tablet Take 2 tablets by mouth twice daily with meals. lisinopril (ZESTRIL, PRINIVIL) 20 mg tablet Take 1 tablet by mouth once daily. Dose change- take one daily traZODone (DESYREL) 100 mg tablet Take 1 tablet by mouth daily at bedtime. Blood Pressure Monitor (BLOOD PRESSURE KIT) Dx: R09.89 labile blood pressure, I10 hypertension (Patient not taking: No sig reported) flash glucose sensor (FREESTYLE JOSE 2 SENSOR) kit Apply new sensor every fourteen (14) days to upper arm. blood sugar diagnostic (TRUE METRIX GLUCOSE TEST STRIP) test strip Check sugars 3 times daily and as directed. DM type 2 E11.65 Insulin: yes insulin glargine (LANTUS SOLOSTAR, BASAGLAR KWIKPEN) 100 unit/mL (3 mL) Inject 30 Units subcutaneously twice daily. Increase by 2 units every 3 days for goal FBG <130. Max of 90 units/day. insulin lispro (HUMALOG U-100 INSULIN) 100 unit/mL crtg Take 12 units with meals. Insulin Sliding Scale: BG 70-150, give 0 units; BG 151-180, give 4 units; BG 181-220, give 6 units; BG 221-260, give 8 units; BG 261-300, give 10 units; BG 301-340, give 12 units; BG 341-380, give 14 units and call provider. Insulin [place], Disposable, (BD ULTRA-FINE [place] PEN NEEDLE) 32 gauge x 5/32 Use to inject insulindaily as directed. CPAP Autopap 5-20 cm H2O, Heat Humidity, suitable mask, [employer] supplies, opt Chinstrap, G47.33. (Patient not taking: Reported on 06/04/2022) Blood-Glucose Meter monitoring kit Glucose Meter of Choice (whatever is covered by insurance) - Kit- Dx: Type 2 DM - Uncontrolled E11.65 Lancets lancets Choose lancets covered by insurance. Test blood sugar(s) 3 times daily. Dx: Type 2 DM - Uncontrolled E11.65 Insulin: Yes No current facility-administered medications for this visit. EXAM: Last 3 Encounter BP Readings: Date: BP: 06/04/2022 132/92 04/25/2022 129/85 02/06/2022 146/92 Wt: 122.9 kg (271 lb) BMI: 32.99 kg/(m^2) LABS: Lab Results Component Value Date HBA1C 7.9 02/06/2022 HBA1C 11.1 08/28/2021 HBA1C 12.7 09/19/2020 HBA1C 10.4 08/03/2019 HBA1C 12.0 01/19/2019 HBA1C 10.0 10/20/2018 CMP: Glucose 301 08/28/2021 BUN 13 08/28/2021 Creatinine, Whole Blood (iSTAT) 0.66 08/28/2021 Sodium 135 08/28/2021 Potassium 4.4 08/28/2021 Chloride 98 08/28/2021 CO2 25 08/28/2021 Protein, Total 7.0 08/28/2021 Albumin 4.5 08/28/2021 Calcium 9.7 08/28/2021 Alkaline Phosphatase 80 08/28/2021 Bilirubin, Total 0.3 08/28/2021 AST 18 08/28/2021 ALT 22 08/28/2021 No results found for: GFR eGFR- (no units) Date Value 09/19/2020 >60 EGFR: >60 mL/min/1.73m2 Lab Results Component Value Date CHOL 179 08/28/2021 CHOL 542 09/19/2020 LDL 96 08/28/2021 LDL 09/19/2020 Unable to calculate due to increased Triglycerides. See LDL-Chol, Direct. HDL 34 08/28/2021 HDL 12 09/19/2020 TG 244 08/28/2021 TG 4,520 09/19/2020 The 10-year ASCVD risk score (Tom GOFF, et al., 2019) is: 13.6% Values used to calculate the score: Age: 42 years Sex: Male Is Non- : No Diabetic: Yes Tobacco smoker: Yes Systolic Blood Pressure: 132 mmHg Is BP treated: Yes HDL Cholesterol: 34 mg/dL Total Cholesterol: 179 mg/dL Albumin/Creat Ratio (mg/g) Date Value 08/28/2021 101 (H) PHARMACOTHERAPY ASSESSMENT/PLAN: 1. Uncontrolled type 2 diabetes mellitus with hyperglycemia (HCC) - ICD9: 250.02, ICD10: E11.65 A1c goal < 7%; not at goal (last A1c 7.9%); Not monitoring BG readings at home. Had CGM but has not refilled sensors. Patient endorses missed doses of insulins for several months. Notes adherence to metformin but no recent fills in dispense records. Has been taking Trulicity as prescribed. Today, recommended to resume BG monitoring, adherence to medications as prescribed and and optimize Trulicity dose to therapeutic level. Renal function appropriate for continued use Increase Trulicity 1.5 mg weekly Continue Basaglar 30 units twice daily Continue metformin 1000 mg BID Continue Humalog 12 units with meals plus sliding scale Instructed to resume CGM monitoring with Trulicity If insurance coverage changes, can consider applying for brand name medications through patient assistance Instructed to bring medication bottles to follow up visit for med review - TRULICITY 1.5 MG/0.5 ML SUBCUTANEOUS PEN INJECTOR - HGB A1C - COMP METABOLIC PANEL - ALBUMIN/CREAT RATIO RND UR - LIPID PANEL BASIC Follow up: Patient is scheduled to see PCP team on 08/14/22. Patient to follow up with pharmD on 09/06/2022. Patient verbalized understanding of instructions. Bianca Begum PharmD, BCACP Primary Care Clinical Pharmacist The majority of the pharmacy visit (> 50%) was spent counseling and/or coordinating care for thepatient. [Telephonic] time was 25 minutes. documented in this encounterMercy [facility]02-07-2023 Miscellaneous Notes* Telephone Encounter - Kye Meade RP - 07/31/2022 8:23 AM EST Noted, will await call from patient in order to schedule New Pharmacy Visit (60 mins) with PharmD. Kye Meade PharmD, [facility] Primary Care Clinical Pharmacist * Telephone Encounter - Janak Luis [facility] - 07/30/2022 4:26 PM EST Called and spoke with patient. He states he will hold off on scheduling as his brother just . He states he will call back to schedule. * Telephone Encounter - Janak Luis [facility] - 07/26/2022 10:27 AM EST Telephoned the patient to schedule a new Primary Care pharmacy appt. Unable to lmom as VM is not set up. Sent [employer] message. documented in this encounterMercy Health Willard [facility]02-01-2023 Miscellaneous Notes* Telephone Encounter - Kaylee Vincent APRN.CNP - 07/25/2022 4:03 PM EST I placed the consult to pharmD. * Telephone Encounter - Kye Meade RP - 07/25/2022 10:50 AM EST Noted. This patient used to work with PharmD but was lost to f/up due to frequent no-shows and lackof response to outreach attempts. If patient wishes to reestablish with pharmacy please place new referral and make sure he is scheduled for a 60 min initial visit. Thanks! Kye Meade, PharmD, [facility] Primary Care Clinical Pharmacist * Telephone Encounter - Vy Finley RN - 07/25/2022 10:25 AM EST Spoke to pt for DM update. States he will be losing Medicaid soon and needs to apply for pt assistance for diabetes meds. Pt. has not been checking bs due to inability to link new phone to [employer]. States he has been depressed lately and not been eating well either. This nurse asked pt to come in next Saturday (along with ) to fill out pt assistance forms and bring in Jose to set up, along with food journal for this week. Pt. agreeable to this plan. Vy Finley RN documented in this encounterMercy Health Willard Hospital11-18-2022 History of Present illness Narrative* Cliff Padilla - 05/11/2022 10:05 AM EST Sleep Study Check-In Documentation Date: May 11, 2022 Name: Denver Hollingsworth Comments: HST was returned in work order. Study did not occur. Pt stated that he couldn't sleep with all of the devices on. Doesn't wish to try again. Cliff Padilla * Jaleesa Wang - 05/07/2022 3:01 PM EST Nomad# [id number] Mail out date:05/08/22 [employer] Shipping #:[id number] [employer] Return #:[id number] * Avila Mullins III, PhD - 05/04/2022 8:26 AM EST May 04, 2022 Standing PSG Orders signed in the last 90 days None Future PSG Orders signed in the last 90 days Ordered Auth. provider HOME SLEEP APNEA TEST (HSAT) [[id number]] 04/25/22 Hope Ivory, DIGITAL STRATEGIST.POLYSOMNOGRAPHY TECHNICIAN Assoc. diagnoses: Snoring [R06.83], Excessive daytime sleepiness [G47.19] Q: Indications: A: Obstructive sleep apnea Q: STOP-BANG conditions - Select All That Apply: A: GENDER = male A2: BMI > 35 kg/m2 A3: high blood PRESSURE A4: SNORING that is loud or disruptive A5: TIREDNESS, fatigue or sleepiness during the day Q: Current use of supplemental oxygen during sleep period?: A: No All Prior Sleep Studies (past 365 days) Some values may be hidden. Unless noted otherwise, only the newest values recorded on each date aredisplayed. Sleep Studies HOME SLEEP APNEA TEST (HSAT) Future Expected: Expires: 04/25/23 BMI Readings from Last 2 Encounters: 04/25/22 : 37.00 kg/m 02/06/22 : 36.52 kg/m 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 of hyperactivity diagnosed in childhood Back pain 02/12/2012 Bipolar disorder (HCC) Chronic post-traumatic headache Closed fracture of dorsal (thoracic) vertebra without mention of spinal cord injury 04/03/2012 Corns and callosities 12/05/2009 Depressive disorder, not elsewhere classified 06/10/2012 DIABETES MELLITUS TYPE II-UNCOMPL 08/30/2008 Dysmetabolic syndrome X 07/21/2008 Gastroesophageal reflux disease with esophagitis Nonspecific abnormal results of liver function study 04/06/2005 Ferritin 225, HBsAg and Hep C negative in 10-30 U/S Fatty Liver BERYL (obstructive sleep apnea) DME [facility] Home Respiratory Pain in joint, lower leg 06/05/2012 Substance abuse (HCC) Tobacco use Unspecified essential hypertension 08/30/2008 The medical record was reviewed to determine if the proposed sleep study conforms to the [facility] Practice Parameters for the Indications for Polysomnography and Related Procedures, or if the sleep studyis indicated for other reasons. Indications for study: BERYL previously diagnosed: Evaluate response to PAP therapy Sleep study to be performed: Home Sleep Apnea Test (HSAT) Special instructions: None-follow laboratory protocol Clinic notes - History of mild BERYL with sleep study in 2019. CPAP ordered but he did not have insurance so never picked up [facility] Staff Note: I have read the above protocol, edited as needed, and agree to the plan. Avila Mullins III, PhD 3:25 PM, 05/07/2022 * Jaleesa Wang - 05/03/2022 8:36 AM EST May 03, 2022 An order has been received for Home Sleep Apnea Test (HSAT) from pratik Mercer. [facility] Staff. Visit prep complete. Comments :No The sleep study is scheduled for 05/09. Insurance: Payor: [place] / Plan: [place] / Product Type: Medicaid / Payer/Plan Subscr Sex Relation Sub. Ins. ID Effective Group Num 1. [place] -* [place] Maria Esther 1980 Male Self [id number] 08/[birth year]/21 [address] Jaleesa Wang documented in this encounterMercy Health Willard Hospital11-16-2022 Instructions* Patient Instructions* Ilya Shafer - 05/09/2022 8:49 AM EST Diabetes Foot Care Instructions When you have diabetes, proper foot care is very important. Poor foot care may lead to amputation of a foot or leg. As a person with diabetes, you are more vulnerable to foot problems, because diabetes can damage your nerves and reduce blood flow to your feet. Here are some diabetes foot care tips to follow: Wash and Dry Your Feet Daily Use mild soaps Use warm water Pat your skin dry; do not rub. Thoroughly dry your feet. After washing, use lotion on your feet to prevent cracking. Do not put lotion between your toes. Examine Your Feet Each Day Check the tops and bottoms of your feet. Have someone else look at your feet if you cannot see them. Check for dry, cracked skin. Look for blisters, cuts, scratches, or other sores. Check for redness, increased warmth, or tenderness when touching any area of your feet. Check for ingrown toenails, corns, and calluses. If you get a blister or sore from your shoes, do not pop it. Apply a bandage and wear a differentpair of shoes. Take Care of Your Toenails Cut toenails after bathing, when they are soft. Cut toenails straight across and smooth with a nail file. Avoid cutting into the corners of toes. Do not cut cuticles. If you have neuropathy (or decreased sensation in your feet) a swatch cutter should always cut your toenails. Be Careful When Exercising Walk and exercise in comfortable shoes. Do not exercise when you have open sores on your feet. Protect Your Feet With Shoes and Socks Never go barefoot. Always protect your feet by wearing shoes or hard-soled slippers or footwear. Avoid shoes with high heels and pointed toes. Avoid shoes that expose your toes or heels (such as open-toed shoes or sandals). These types of shoes increase your risk for injury and potential infections. Try on new footwear with the type of socks you usually wear. Do not wear new shoes for more than an hour at a time. Change your socks daily. Look and feel inside your shoes before putting them on to make sure there are no foreign objects orrough areas. Avoid tight socks. Wear natural-fiber socks (cotton, wool, or a cotton-wool blend). Wear special shoes if your health care provider recommends them. Wear shoes/boots that will protect your feet from various weather conditions (cold, moisture, etc.). Make sure your shoes fit properly. If you have neuropathy (nerve damage), you may not notice that your shoes are too tight. Perform the footwear test described below. Footwear Test Use this simple test to see if your shoes fit correctly: Stand on a piece of paper. (Make sure you are standing and not sitting, because your foot changes shape when you stand.) Trace the outline of your foot. Trace the outline of your shoe. Compare the tracings: Is the shoe too narrow? Is your foot crammed into the shoe? The shoe should be at least 1/2 inch longer than your longest toe and as wide as your foot. Proper Shoe Choices The following types of shoes are best for people with diabetes Closed toes and heels Leather uppers without a seam inside At least 1/2 inch extra space at the end of your longest toe Inside of shoe should be soft with no rough areas Outer sole should be made of stiff material Shoes should be at least as wide as your feet Tips for Foot Care in Diabetes Don't wait to treat a minor foot problem if you have diabetes. Follow your health care provider's guidelines and first aid guidelines. Report foot injuries and infections to your health care provider immediately. Check water temperature with your elbow, not your foot. Do not use a heating pad on your feet. Do not cross your legs. Do not self-treat your corns, calluses, or other foot problems. Go to your health care provider or swatch cutter to treat these conditions. documented in this encounterMercy Health [facility]11-16-2022 History of Present illness Narrative* Ilya Shafer - 05/09/2022 8:38 AM EST Images from the original note were not included. Initial Office Visit Subjective: This 41 year old male presents to clinic for diabetic foot check. Patient has the following complaints: painful callus of left heel. Patient presents to clinic for evaluation of painful callus of left heel. He was seen for this reason last year. He declined diabetic shoes at that time and is still not interested in shoes. Patient does apply lotion to his heels but not consistent. Patient also complains of callus to right foot. Patient admits to being diabetic. Patient +B/T/N in feet at this time. Patient - pain in legs when walking. No other pedal complaints at this time. No change in medications or medical history since last visit. PAIN EVALUATION 05/09/2022 0820 Pain Level: 5 Pain Location: Other: See Comment bilateral feet Description: Sore Duration Amount of Time: 8 Duration Units: Years Frequency: Intermittent Intervention/Comfort measure: Reposition;Relaxation Hemoglobin A1C (%) Date Value 02/06/2022 7.9 08/28/2021 11.1 09/19/2020 12.7 01/19/2019 12.0 10/20/2018 10.0 06/18/2018 11.0 01/16/2018 7.9 Hemoglobin A1C (POCT) (%) Date Value 08/03/2019 10.4 PCP: Michelle Jane MD 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 of hyperactivity diagnosed in childhood Back pain 02/12/2012 Bipolar disorder (HCC) Chronic post-traumatic headache Closed fracture of dorsal (thoracic) vertebra without mention of spinal cord injury 04/03/2012 Corns and callosities 12/05/2009 Depressive disorder, not elsewhere classified 06/10/2012 DIABETES MELLITUS TYPE II-UNCOMPL 08/30/2008 Dysmetabolic syndrome X 07/21/2008 Gastroesophageal reflux disease with esophagitis Nonspecific abnormal results of liver function study 04/06/2005 Ferritin 225, HBsAg and Hep C negative in 10-30 /S Fatty Liver BERYL (obstructive sleep apnea) DME [facility] Home Respiratory Pain in joint, lower leg 06/05/2012 Substance abuse (HCC) Tobacco use Unspecified essential hypertension 08/30/2008 Current Outpatient Medications Medication Sig metoprolol succinate ER (TOPROL XL) 50 mg 24 hr tablet Take 1 tablet by mouth once daily. omeprazole (PRILOSEC) 20 mg capsule Take 1 capsule by mouth daily before breakfast. sertraline (ZOLOFT) 50 mg tablet Take 1 tablet by mouth once daily. dulaglutide (TRULICITY) 0.75 mg/0.5 mL pen injector Inject 0.75 mg subcutaneously one time a week. lurasidone (LATUDA) 40 mg tablet Take 1 tablet by mouth daily with dinner. OXcarbazepine (TRILEPTAL) 300 mg tablet Take 1 tablet by mouth twice daily. atorvastatin (LIPITOR) 20 mg tablet Take 1 tablet by mouth daily at bedtime. For cholesterol. metFORMIN (GLUCOPHAGE) 500 mg tablet Take 2 tablets by mouth twice daily with meals. lisinopril (ZESTRIL, PRINIVIL) 20 mg tablet Take 1 tablet by mouth once daily. Dose change- take one daily traZODone (DESYREL) 100 mg tablet Take 1 tablet by mouth daily at bedtime. flash glucose sensor (FREESTYLE JOSE 2 SENSOR) kit Apply new sensor every fourteen (14) days to upper arm. blood sugar diagnostic (TRUE METRIX GLUCOSE TEST STRIP) test strip Check sugars 3 times daily and as directed. DM type 2 E11.65 Insulin: yes insulin glargine (LANTUS SOLOSTAR, BASAGLAR KWIKPEN) 100 unit/mL (3 mL) Inject 30 Units subcutaneously twice daily. Increase by 2 units every 3 days for goal FBG <130. Max of 90 units/day. insulin lispro (HUMALOG U-100 INSULIN) 100 unit/mL crtg Take 12 units with meals. Insulin Sliding Scale: BG 70-150, give 0 units; BG 151-180, give 4 units; BG 181-220, give 6 units; BG 221-260, give 8 units; BG 261-300, give 10 units; BG 301-340, give 12 units; BG 341-380, give 14 units and call provider. Insulin [place], Disposable, (BD ULTRA-FINE SAGRARIO PEN NEEDLE) 32 gauge x 5/32 Use to inject insulindaily as directed. Blood-Glucose Meter monitoring kit Glucose Meter of Choice (whatever is covered by insurance) - Kit- Dx: Type 2 DM - Uncontrolled E11.65 Lancets lancets Choose lancets covered by insurance. Test blood sugar(s) 3 times daily. Dx: Type 2 DM - Uncontrolled E11.65 Insulin: Yes Blood Pressure Monitor (BLOOD PRESSURE KIT) Dx: R09.89 labile blood pressure, I10 hypertension (Patient not taking: Reported on 05/09/2022) CPAP Autopap 5-20 cm H2O, Heat Humidity, suitable mask, [employer] supplies, opt [place], G47.33. (Patient not taking: No sig reported) No current facility-administered medications for this visit. ALLERGIES Allergen Reactions Fibrate Anti-Lipide* Myalgia Hydrocodone Bitartr* GI Upset Vicodin [Hydrocodon* GI Upset PAST SURGICAL HISTORY Procedure Laterality Date CHOLECYSTECTOMY 2017 COLONOSCOPY 07/29/2013 Normal ESOPHAGOGASTRODUODENOSCOPY TRANSORAL DIAGNOSTIC 07/29/2013 H Pylori Gastritis, Gastric cardia type mucosa w/chronic inflammation UNSPECIFIED ORAL SURGERY PROCEDURE, BY REPORT tooth extraction. FAMILY HISTORY Problem Relation Age of Onset Hypertension Mother COPD Mother Diabetes Father Coronary Artery Disease Father Bypass surgery and [place] 2013 Heart Father Heart Brother other (Diverticulitis) Brother Primary Biliary Cirrhosis Brother No Known Problems Maternal Grandmother Cancer Maternal Grandfather unknown No Known Problems Paternal Grandmother Diabetes Paternal Grandfather Colon Cancer No Family History Social History Tobacco Use Smoking status: Every Day Packs/day: 0.50 Types: Cigarettes Start date: 08/11/1995 Smokeless tobacco: Never Vaping Use Vaping Use: Never used Substance Use Topics Alcohol use: No Drug use: No REVIEW OF SYSTEMS GENERAL: Negative for Malaise, significant weight loss, fever RESPIRATORY: Negative for cough, wheezing and shortness of breath CARDIOVASCULAR: Negative for chest pain, leg swelling and palpitations GI: Negative for abdominal discomfort, blood in stools or black stools and change in bowel habits : Negative for dysuria, frequency and incontinence MUSCULOSKELETAL: Negative for joint pain or swelling, back pain, and muscle pain. SKIN: Negative for lesions, rash, and itching. HEMATOLOGY/LYMPHOLOGY Negative for prolonged bleeding, bruising easily, and swollen nodes. ENDOCRINE: Negative for cold or heat intolerance, polyuria, polydipsia and goiter. NEURO: negative The remainder of the review of systems is noncontributory. Objective: Patient presents to clinic ambulating in hey dude shoes Constitutional: Pt is a well developed 41 year old male who is alert, oriented, cooperative and in no apparent distress. Eyes: Following during examination. No redness or drainage. Respiratory: RR normal and nonlabored. Even breathing. No evidence of distress. Psychology: Patient is engaged during conversation. Normal affect and mood. Does not appear depressed or anxious. Vasc: DP and PT pulses are palpable bilateral. CFT is less than 5 seconds bilateral. Skin temperature is warm to warm proximal to distal bilateral. There is no edema or varicosities noted. Hair growth present. Neuro: Protective sensation is decreased to the foot and toes when tested with the 5.07 SWM bilateral. Vibratory sensation is absent at the hallux bilateral. + Significant neurological defecits. Derm: Inspection and palpation performed. Nails 1-5 b/l are normal in length and thickness. Skin isof normal turgor and texture. Hyperkeratosis noted to medial aspect of left heel and right 2nd metatarsal head. NO ulcerations, scars, verruca or other lesions noted. Ortho: Ankle joint DF is decreased with the knee extended and decreased with knee flexed. No pain or crepitus noted. STJ, MTJ ROM are full and free of pain or crepitus. Muscle strength is 5/5 for dorsiflexors, plantarflexors, inverters, everters. Digital deformities include none. Pes cavus is notedb/l Assessment: (E11.65) Uncontrolled type 2 diabetes mellitus with hyperglycemia (HCC) (primary encounter diagnosis) (L84) Callus of foot (Q66.70) Pes cavus Plan: 1. Patient was seen and evaluated. 2. Patient was instructed on the continued importance of diabetic foot care along with proper diet and keeping their blood sugar under control to prevent complications. Instructions given both oral and written. 3. Callus reduced to left heel and right 2nd metatarsal. Offered inserts. He already has but causesflare-up with back pain. Recommend more supportive tennis shoes. Carmol 40 prescribed. Callus reduced to left heel and right 2nd metatarsal with 15 blade and dremmel. 4. Offered diabetic shoes but patient declined 5. F/u in 1 year or sooner if problems arise. Ilya Shafer DPM * Ann Hernandez LPN - 05/09/2022 8:20 AM EST AMB ROOMING INTAKE FLOWSHEET DATA Risk Screening Do you have concerns about personal safety or safety in the home?: No Pain Pain Level: 5 Pain Location: Other: See Comment (bilateral feet) Description: Sore Duration Amount of Time: 8 Duration Units: Years Frequency: Intermittent Intervention/Comfort measure: Reposition, Relaxation Patient presents with: Left Foot - Established Patient, Follow Up, Pain, Callous, Diabetic Foot Care Right Foot - Established Patient, Follow Up, Pain, Callous, Diabetic Foot Care Ann Hernandez LPN documented in this encounterMer[facility]11-02-2022 History of Present illness Narrative* Hope Ivory APRN.POLYSOMNOGRAPHY TECHNICIAN - 04/25/2022 12:50 PM EDT CC: Patient presents with: [place] ER follow up: Blood pressure HPI Denver Hollingsworth is a 41 year old male who presents today for blood pressure follow-up. [facility] chest pain and elevated blood pressure, was in detention at that time. EKG, labs, chest x-ray normal. Chest pain attributed to anxiety or musculoskeletal cause. BP was elevated in ER, he was discharged with metoprolol prescription. Patient was released from detention on 04/23, BP was 185/115 at that time. He is unable to check at home, does not have meter. Reports chronic headaches but denies severe pain or new features. Chronic SOBwith exertion, no worse than usual. Denies chest pain, palpitations, edema. He is on Lisinopril in addition to the Metoprolol. Taking as prescribed and denies side effects. Diabetes: Home blood sugar readings: continuous CGM, average less than 180 Hypoglycemia: No He is compliant with medication(s) and is tolerating med(s) without any side effects. He has chronic diabetic neuropathy, controlled with Gabapentin. Denies increased thirst, urinary frequency, nocturia, fatigue, unintentional weight loss, blurred vision, ulcers or sores on feet Last Ophthalmology exam was within the past 6 months Last Podiatry exam was over one year ago Patient's last HgA1C was Hemoglobin A1C (%) Date Value 02/06/2022 7.9 08/28/2021 11.1 09/19/2020 12.7 01/19/2019 12.0 Hemoglobin A1C (POCT) (%) Date Value 08/03/2019 10.4 History of mild BERYL with sleep study in 2019. CPAP ordered but he did not have insurance so never picked up. Reports loud disruptive snoring, un-refreshed sleep, insomnia, excessive daytime drowsiness. Unsure about witnessed apnea, has never mentioned it. History of substance abuse, PTSD and bipolar disorder. He is treated with Zoloft, Latuda, [place] Trazodone. Patient was able to take these while in detention. He feels they are effective at controlling symptoms and denies side effects. He missed his follow-up with psychiatry and needs to reschedule. REVIEW OF SYSTEMS General: no fevers, no chills, no night sweats, no change in energy, and no significant changes in weight Respiratory: chronic cough and wheezing, he attributes to smoking. No desire to quit Cardiovascular: See HPI 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 of hyperactivity diagnosed in childhood Back pain 02/12/2012 Bipolar disorder (HCC) Chronic post-traumatic headache Closed fracture of dorsal (thoracic) vertebra without mention of spinal cord injury 04/03/2012 Corns and callosities 12/05/2009 Depressive disorder, not elsewhere classified 06/10/2012 DIABETES MELLITUS TYPE II-UNCOMPL 08/30/2008 Dysmetabolic syndrome X 07/21/2008 Gastroesophageal reflux disease with esophagitis Nonspecific abnormal results of liver function study 04/06/2005 Ferritin 225, HBsAg and Hep C negative in 10-30 /S Fatty Liver BERYL (obstructive sleep apnea) DME [facility] Home Respiratory Pain in joint, lower leg 06/05/2012 Substance abuse (HCC) Tobacco use Unspecified essential hypertension 08/30/2008 PAST SURGICAL HISTORY Procedure Laterality Date CHOLECYSTECTOMY 2017 COLONOSCOPY 07/29/2013 Normal ESOPHAGOGASTRODUODENOSCOPY TRANSORAL DIAGNOSTIC 07/29/2013 H Pylori Gastritis, Gastric cardia type mucosa w/chronic inflammation UNSPECIFIED ORAL SURGERY PROCEDURE, BY REPORT tooth extraction. ALLERGIES Fibrate Anti-Lipidemics, Hydrocodone Bitartrate, and Vicodin [Hydrocodone-Acetaminophen] MEDICATIONS metoprolol tartrate, short acting, (LOPRESSOR) 50 mg tablet Take 50 mg by mouth once daily. Blood Pressure Monitor (BLOOD PRESSURE KIT) Dx: R09.89 labile blood pressure, I10 hypertension omeprazole (PRILOSEC) 20 mg capsule Take 1 capsule by mouth daily before breakfast. sertraline (ZOLOFT) 50 mg tablet Take 1 tablet by mouth once daily. dulaglutide (TRULICITY) 0.75 mg/0.5 mL pen injector Inject 0.75 mg subcutaneously one time a week. lurasidone (LATUDA) 40 mg tablet Take 1 tablet by mouth daily with dinner. OXcarbazepine (TRILEPTAL) 300 mg tablet Take 1 tablet by mouth twice daily. atorvastatin (LIPITOR) 20 mg tablet Take 1 tablet by mouth daily at bedtime. For cholesterol. metFORMIN (GLUCOPHAGE) 500 mg tablet Take 2 tablets by mouth twice daily with meals. lisinopril (ZESTRIL, PRINIVIL) 20 mg tablet Take 1 tablet by mouth once daily. Dose change- take one daily flash glucose sensor (FREESTYLE JOSE 2 SENSOR) kit Apply new sensor every fourteen (14) days to upper arm. traZODone (DESYREL) 100 mg tablet Take 1 tablet by mouth daily at bedtime. blood sugar diagnostic (TRUE METRIX GLUCOSE TEST STRIP) test strip Check sugars 3 times daily and as directed. DM type 2 E11.65 Insulin: yes insulin glargine (LANTUS SOLOSTAR, BASAGLAR KWIKPEN) 100 unit/mL (3 mL) Inject 30 Units subcutaneously twice daily. Increase by 2 units every 3 days for goal FBG <130. Max of 90 units/day. insulin lispro (HUMALOG U-100 INSULIN) 100 unit/mL crtg Take 12 units with meals. Insulin Sliding Scale: BG 70-150, give 0 units; BG 151-180, give 4 units; BG 181-220, give 6 units; BG 221-260, give 8 units; BG 261-300, give 10 units; BG 301-340, give 12 units; BG 341-380, give 14 units and call provider. Insulin [place], Disposable, (BD ULTRA-FINE SAGRARIO PEN NEEDLE) 32 gauge x 5/32 Use to inject insulindaily as directed. Blood-Glucose Meter monitoring kit Glucose Meter of Choice (whatever is covered by insurance) - Kit- Dx: Type 2 DM - Uncontrolled E11.65 Lancets lancets Choose lancets covered by insurance. Test blood sugar(s) 3 times daily. Dx: Type 2 DM - Uncontrolled E11.65 Insulin: Yes CPAP Autopap 5-20 cm H2O, Heat Humidity, suitable mask, Lifetime supplies, opt Chinstrap, G47.33. (Patient not taking: No sig reported) FAMILY HISTORY Problem Relation Age of Onset Hypertension Mother COPD Mother Diabetes Father Coronary Artery Disease Father Bypass surgery and [place] 2012 Heart Father Heart Brother other (Diverticulitis) Brother Primary Biliary Cirrhosis Brother No Known Problems Maternal Grandmother Cancer Maternal Grandfather unknown No Known Problems Paternal Grandmother Diabetes Paternal Grandfather Colon Cancer No Family History Social History Tobacco Use Smoking status: Every Day Packs/day: 0.50 Types: Cigarettes Start date: 08/11/1995 Smokeless tobacco: Never Vaping Use Vaping Use: Never used Substance Use Topics Alcohol use: No Drug use: No PHYSICAL EXAM BP 129/85 Pulse 94 Resp 16 Wt (!) 137.9 kg (304 lb) BMI 37.00 kg/m General Appearance: well appearing, in no acute distress, alert Pysch: mood and affect broad and appropriate Lungs: Lungs clear to auscultation. No wheezing, rhonchi, rales. Heart: RRR without murmur, gallop, or rubs. No ectopy HEPATITIS B(1 of 3 - 3-dose series) Never done HIV SCREENING Never done BP CONTROLLED (<130/80) Never done PNEUMOCOCCAL(2 - PCV) due on 11/28/2010 COVID-19 VACCINE(3 - Booster for Moderna series) due on 02/08/2021 DIABETIC FOOT EXAM due on 10/18/2021 INFLUENZA(1) due on 12/21/2022 HBA1C due on 08/09/2022 URINE ALBUMIN:CREATININE RATIO due on 08/28/2022 LDL CHOLESTEROL due on 08/28/2022 DILATED RETINAL EXAM due on 08/31/2022 ANNUAL PCP TEAM CHRONIC DISEASE VISIT due on 11/15/2022 DTAP,TDAP,TD(3 - Td or Tdap) due on 12/02/2030 HEPATITIS C SCREENING Completed DATA REVIEWED: Most recent labs ASSESSMENT/PLAN: 1. Essential hypertension - ICD9: 401.9, ICD10: I10 (primary diagnosis) - improved control - Continue current medication(s) - Recommended regular aerobic exercise. - Recommend home blood pressure monitoring, to bring results in on next visit - Goal of BP <130/80 - LISINOPRIL 20 MG TABLET 2. Snoring - ICD9: 786.09, ICD10: R06.83 Diagnosed with mild sleep apnea, last sleep study 2019. Repeat sleep study, recommendations pendingresults - HOME SLEEP APNEA TEST (HSAT) 3. Uncontrolled type 2 diabetes mellitus with hyperglycemia (HCC) - ICD9: 250.02, ICD10: E11.65 improved control - Continue current medications - TRULICITY 0.75 MG/0.5 ML SUBCUTANEOUS PEN INJECTOR - ATORVASTATIN 20 MG TABLET - METFORMIN 500 MG TABLET - LISINOPRIL 20 MG TABLET 4. Primary insomnia - ICD9: 307.42, ICD10: F51.01 - TRAZODONE 100 MG TABLET 5. Excessive daytime sleepiness - ICD9: 780.54, ICD10: G47.19 See #2 - HOME SLEEP APNEA TEST (HSAT) 6. Class 2 severe obesity with serious comorbidity and body mass index (BMI) of 37.0 to 37.9 in adult, unspecified obesity type (HCC) - ICD9: 278.01, V85.37, ICD10: E66.01, Z68.37 Stable - Counseled on healthy diet and regular exercise - Discussed need for and benefit of weight loss BMI Readings from Last 1 Encounters: 04/25/22 : 37.00 kg/m 7. Anxiety and depression - ICD9: 300.00, 311, ICD10: F41.9, F32.A Meds refilled today. Reschedule follow-up with psychiatry 8. Bipolar affective disorder, current episode mixed, current episode severity unspecified (HCC) - ICD9: 296.60, ICD10: F31.60 As above - SERTRALINE 50 MG TABLET - LURASIDONE 40 MG TABLET - OXCARBAZEPINE 300 MG TABLET - TRAZODONE 100 MG TABLET 9. PTSD (post-traumatic stress disorder) - ICD9: 309.81, ICD10: F43.10 As above Prescription instructions reviewed with patient as applicable. Potential red flag symptoms discussed with the patient. Reviewed appropriate action plan to take if red flag symptoms occur. Patient agreeable to treatment plan. Hope Ivory APRN.CNP documented in this encounter[facility] Miscellaneous Notes* Telephone Encounter - Toni Martínez Ma - 04/23/2022 3:59 PM EDT Faxed. * Telephone Encounter - Delano Black RN - 04/23/2022 11:43 AM EDT Patient reports he got out of detention today- 30 day stay. When he left detention today BP was 185/115. Jailadvised him to see his doctor. Reports his BP was 220/160 about 2 weeks ago, and they took him to [facility]. ER doctor prescribed metoprolol 50 mg daily. Reports he is already taking lisinopril 20 mg daily. Reports ER doc and the detention advised him to f/u with pcp. ER doc informed him, he has inflammation around the lining of his heart, and advised patient to see trekking guide. Reports he has had symptoms: headaches for quite some time, and irritable. No dizziness. Schedule appt for 04-25, per patient request, as this is the only day he can come. Patient agreeable to ER if symptoms worsen be fore appt. Patient asking provider to order him a BP cuff to monitor BP at home, and send order to [facility]. documented in this encounterMer[facility]08-16-2022 History of Past illness Narrative* Problem Noted Date Diagnosed Date Resolved Date Acute laryngitis 02/06/2022 06/26/2023 Nonspecific colitis 02/06/2022 06/26/19 24 Obesity, unspecified 04/06/2005 023 Last Assessment & Plan: Assessment: Body mass index is 37 kg/m . documented as of this encounter (statuses as of 08/10/2023) [facility] History of Past illness Narrative* Problem Noted Date Diagnosed Date Resolved Date Acute laryngitis 02/06/2022 06/26/2023 Nonspecific colitis 02/06/2022 06/26/19 24 Obesity, unspecified 04/06/2005 023 Last Assessment & Plan: Assessment: Body mass index is 37 kg/m . documented as of this encounter (statuses as of 08/23/2023) [facility] History of Past illness Narrative* Problem Noted Date Diagnosed Date Resolved Date Acute laryngitis 02/06/2022 06/26/2023 Nonspecific colitis 02/06/2022 06/26/19 24 Obesity, unspecified 04/06/2005 023 Last Assessment & Plan: Assessment: Body mass index is 37 kg/m . documented as of this encounter (statuses as of 08/26/2023) [facility] History of Past illness Narrative* Problem Noted Date Diagnosed Date Resolved Date Acute laryngitis 02/06/2022 06/26/2023 Nonspecific colitis 02/06/2022 06/26/19 24 Obesity, unspecified 04/06/2005 023 Last Assessment & Plan: Assessment: Body mass index is 37 kg/m . documented as of this encounter (statuses as of 10/08/2023) [facility] History of Present illness Narrative* Britney Cervantes APRN.CHILD & ADOLESCENT PSYCHIATRIST - 02/06/2022 10:40 AM EDT SUBJECTIVE: HEPATITIS B(1 of 3 - 3-dose series) Never done HIV SCREENING Never done BP CONTROLLED (<130/80) Never done PNEUMOCOCCAL(2 - PCV) due on 11/28/2010 COVID-19 VACCINE(3 - Booster for Moderna series) due on 05/16/2021 DIABETIC FOOT EXAM due on 10/18/2021 HBA1C due on 12/22/2021 HPI Denver Hollingsworth is a 41 year old male.PMH significant for ACTIVE PROBLEM LIST Attention Deficit Disorder Obesity, Unspecified Uncontrolled Type 2 Diabetes Mellitus With Hyperglycemia (Hcc) Essential Hypertension Beryl (Obstructive Sleep Apnea) Cavus Deformity of Foot, Acquired Cervicalgia Anxiety and Depression Mixed Hyperlipidemia Spinal Stenosis, Lumbar Region, Without Neurogenic Claudication Right Testicular Pain Tobacco Use Gastroesophageal Reflux Disease With Esophagitis Bipolar Disorder (Hcc) Substance Abuse (Hcc) Obesity, Class II, Bmi 35-39.9 Contusion of Unspecified Back Wall of Thorax, Initial Encounter Acute Laryngitis Acute Lumbosacral Myofascial Strain Back Contusion Chronic Back Pain Bronchitis Cervical Strain Cocaine Dependence With Intoxication (Hcc) Gallstone Pancreatitis Gastroesophageal Reflux Disease Hyperosmolar Non-Ketotic State in Patient With Type 2 Diabetes Mellitus (Hcc) Injury of Head Laceration of Leg, Right Nonspecific Colitis Orchitis and Epididymitis Ptsd (Post-Traumatic Stress Disorder) Viral Infection HPI excerpted from previous visit: Presents today for follow-up visit. Last seen 09/2020. He notes not having insurance coverage. Unable to afford insulin, purchasing the $30 or vials. States he is taking 25 to 26 units of long-acting insulin daily. States taking all oral medications, able to pay out of pocket for all of these for about $73 per month. Notes going to [facility] for counsleing. No recent psychiatry visit. Notes needing medication for sleep; took trazodone in the past which seemed to help. Prior right testicular pain noted 2018, has not yet had planned surgery due to uncontrolled diabetes mellitus. Since last seen by me he was admitted to [facility] for PTSD September 22, 2021. He had a follow-up visit with Michelle Jane MD Nov 15 2021. He was referred to structured diabetes program but did not schedule follow-up appointment. He was seen at [facility] ER December 12 for chest pain abdominal pain nausea vomiting and diarrhea. He was noted to have acute laryngitis acute epididymoorchitis and back contusion. Presents today noting he is going to detention in March. Notes abnormal movements of arms in evening x 2 weeks. He reports current psychiatric medications, these were ordered during psychiatric hospital admission. Not currently seeing psychiatric provider. He reports taking medications as ordered however no recent refills of routine medications noted in epic review of outside meds. DIABETES MELLITUS: He reports blood sugars at home of been in better control. Has been using glucometer but interested in CGM. Without report of excessive thirst or increased frequency of urination, chest pain or dyspnea , numbness, tingling or pain in extremities, new or unusual visual symptoms, low sugar/hypoglycemic reactions, weight loss/gain, lightheadedness/dizziness and bowel changes/loosestools. Tries to stick with a diabetic diet does have indiscretions. Patient's last HgA1C was Hemoglobin A1C (%) Date Value 08/28/2021 11.1 09/19/2020 12.7 01/19/2019 12.0 Hemoglobin A1C (POCT) (%) Date Value 08/03/2019 10.4 ) Hyperlipidemia. Mr. Hollingsworth reports doing well on current therapy His most recent lipid panels are: Cholesterol, Total (mg/dL) Date Value 08/28/2021 179 09/19/2020 542 10/20/2018 235 HDL Cholesterol (mg/dL) Date Value 08/28/2021 34 09/19/2020 12 10/20/2018 23 LDL Cholesterol (mg/dL) Date Value 08/28/2021 96 09/19/2020 Unable to calculate due to increased Triglycerides. See LDL-Chol, Direct. 10/20/2018 Unable to calculate due to increased Triglycerides. See LDL-Chol, Direct. Triglyceride (mg/dL) Date Value 08/28/2021 244 09/19/2020 4,520 10/20/2018 1,339 HTN: Without report of headache, chest pain, palpitations, dyspnea, peripheral edema, orthopnea, fatigue and PND. Last 14 Encounter BP Readings: Date: BP: 02/06/2022 146/92 11/15/2021 142/90 09/15/2021 142/98[Follows PCP for blood pressure per patient.[ 08/30/2021 146/96 08/29/2021 146/96[bp niles average[ 11/14/2020 144/92 10/10/2020 158/84 10/04/2020 142/92 09/23/2020 136/84 09/19/2020 138/98 05/18/2020 141/90 04/05/2020 161/91 04/01/2020 130/74 08/03/2019 140/98 Review of Systems Constitutional: Negative. Respiratory: Negative. Cardiovascular: Negative. Endocrine: Negative. Objective BP 146/92 Pulse 100 Resp 16 Wt 136.1 kg (300 lb) BMI 36.52 kg/m Physical Exam Vitals and nursing note reviewed. Constitutional: Appearance: Normal appearance. HENT: Head: Normocephalic. Right Ear: Tympanic membrane and ear canal normal. Mouth/Throat: Mouth: Mucous membranes are moist. Pharynx: Oropharynx is clear. No oropharyngeal exudate or posterior oropharyngeal erythema. Eyes: Conjunctiva/sclera: Conjunctivae normal. Neck: Thyroid: No thyromegaly. Vascular: No carotid bruit. Cardiovascular: Rate and Rhythm: Normal rate and regular rhythm. Pulses: Carotid pulses are 2+ on the right side and 2+ on the left side. Radial pulses are 2+ on the right side and 2+ on the left side. Dorsalis pedis pulses are 2+ on the right side and 2+ on the left side. Heart sounds: Normal heart sounds. Pulmonary: Effort: Pulmonary effort is normal. Breath sounds: Normal breath sounds. Abdominal: General: Bowel sounds are normal. There is no distension. Palpations: Abdomen is soft. There is no mass. Tenderness: There is no abdominal tenderness. There is no guarding. Musculoskeletal: Right lower leg: No edema. Left lower leg: No edema. Lymphadenopathy: Cervical: Right cervical: No superficial cervical adenopathy. Skin: General: Skin is warm and dry. Neurological: Mental Status: He is alert. Mental status is at baseline. ALLERGIES Allergen Reactions Fibrate Anti-Lipide* Myalgia Hydrocodone Bitartr* GI Upset Vicodin [Hydrocodon* GI Upset Medications traZODone (DESYREL) 100 mg tablet Take 1 tablet by mouth daily at bedtime. blood sugar diagnostic (TRUE METRIX GLUCOSE TEST STRIP) test strip Check sugars 3 times daily and as directed. DM type 2 E11.65 Insulin: yes insulin glargine (LANTUS SOLOSTAR, BASAGLAR KWIKPEN) 100 unit/mL (3 mL) Inject 30 Units subcutaneously twice daily. Increase by 2 units every 3 days for goal FBG <130. Max of 90 units/day. insulin lispro (HUMALOG U-100 INSULIN) 100 unit/mL crtg Take 12 units with meals. Insulin Sliding Scale: BG 70-150, give 0 units; BG 151-180, give 4 units; BG 181-220, give 6 units; BG 221-260, give 8 units; BG 261-300, give 10 units; BG 301-340, give 12 units; BG 341-380, give 14 units and call provider. Insulin [place], Disposable, (BD ULTRA-FINE SAGRARIO PEN NEEDLE) 32 gauge x 5/32 Use to inject insulindaily as directed. Blood-Glucose Meter monitoring kit Glucose Meter of Choice (whatever is covered by insurance) - Kit- Dx: Type 2 DM - Uncontrolled E11.65 Lancets lancets Choose lancets covered by insurance. Test blood sugar(s) 3 times daily. Dx: Type 2 DM - Uncontrolled E11.65 Insulin: Yes omeprazole (PRILOSEC) 20 mg capsule Take 1 capsule by mouth daily before breakfast. sertraline (ZOLOFT) 50 mg tablet Take 1 tablet by mouth once daily. dulaglutide (TRULICITY) 0.75 mg/0.5 mL pen injector Inject 0.75 mg subcutaneously one time a week. lurasidone (LATUDA) 40 mg tablet Take 1 tablet by mouth daily with dinner. OXcarbazepine (TRILEPTAL) 300 mg tablet Take 1 tablet by mouth twice daily. atorvastatin (LIPITOR) 20 mg tablet Take 1 tablet by mouth daily at bedtime. For cholesterol. metFORMIN (GLUCOPHAGE) 500 mg tablet Take 2 tablets by mouth twice daily with meals. lisinopril (ZESTRIL, PRINIVIL) 20 mg tablet Take 1 tablet by mouth once daily. Dose change- take one daily CPAP Autopap 5-20 cm H2O, Heat Humidity, suitable mask, Lif[employer] supplies, opt Chinstrap, G47.33. (Patient not taking: No sig reported) 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 of hyperactivity diagnosed in childhood Back pain 02/12/2012 Bipolar disorder (HCC) Chronic post-traumatic headache Closed fracture of dorsal (thoracic) vertebra without mention of spinal cord injury 04/03/2012 Corns and callosities 12/05/2009 Depressive disorder, not elsewhere classified 06/10/2012 DIABETES MELLITUS TYPE II-UNCOMPL 08/30/2008 Dysmetabolic syndrome X 07/21/2008 Gastroesophageal reflux disease with esophagitis Nonspecific abnormal results of liver function study 04/06/2005 Ferritin 225, HBsAg and Hep C negative in 10-30 /S Fatty Liver BERYL (obstructive sleep apnea) DME [facility] Respiratory Pain in joint, lower leg 06/05/2012 Substance abuse (HCC) Tobacco use Unspecified essential hypertension 08/30/2008 Social History Tobacco Use Smoking status: Every Day Packs/day: 0.50 Types: Cigarettes Start date: 08/11/1995 Smokeless tobacco: Never Vaping Use Vaping Use: Never used Substance Use Topics Alcohol use: No Drug use: No Component Latest Ref Rng & Units 09/19/2020 09/19/2020 09/19/2020 08/28/2021 11:23 AM 11:23 AM 11:26 AM WBC 3.70 - 11.00 k/uL 11.95 (H) 8.69 RBC 4.20 - 6.00 m/uL 5.52 5.69 Hemoglobin 13.0 - 17.0 g/dL 17.7 (H) 16.7 Hematocrit 39.0 - 51.0 % 46.0 48.6 MCV 80.0 - 100.0 fL 83.3 85.4 MCH 26.0 - 34.0 pg 31.0 29.3 MCHC 30.5 - 36.0 g/dL 37.2 (H) 34.4 RDW-CV 11.5 - 15.0 % 12.0 12.3 Platelet Count 150 - 400 k/uL 198 130 (L) MPV 9.0 - 12.7 fL 12.0 12.4 Neut% % 51.1 Abs Neut (ANC) 1.45 - 7.50 k/uL 4.45 Lymph% % 36.4 Abs Lymph 1.00 - 4.00 k/uL 3.16 [place]% % 8.9 Abs [place] <0.87 k/uL 0.77 Eosin% % 2.1 Abs Eosin <0.46 k/uL 0.18 Baso% % 0.8 Abs Baso <0.11 k/uL 0.07 Immature Gran % % 0.7 IMMATURE GRANS (ABS) <0.10 k/uL 0.06 NRBC /100 WBC 0.0 Absolute nRBC <0.01 k/uL <0.01 <0.01 DTYPE Auto Protein, Total 6.3 - 8.0 g/dL 7.8 7.0 Albumin 3.9 - 4.9 g/dL 4.4 4.5 Calcium 8.5 - 10.2 mg/dL 9.5 9.7 Bilirubin, Total 0.2 - 1.3 mg/dL 0.4 0.3 Alkaline Phosphatase 38 - 113 U/L 101 80 AST 14 - 40 U/L 22 18 Glucose 74 - 99 mg/dL 436 (H) 301 (H) BUN 9 - 24 mg/dL 9 13 Creatinine 0.73 - 1.22 mg/dL 0.59 (L) 0.66 (L) Sodium 136 - 144 mmol/L 130 (L) 135 (L) Potassium 3.7 - 5.1 mmol/L Unable to assay due to interference from hemolysis. Suggest reorder as clinically . . . 4.4 Chloride 97 - 105 mmol/L 96 (L) 98 CO2 22 - 30 mmol/L 18 (L) 25 Anion Gap 9 - 18 mmol/L 16 12 ALT 10 - 54 U/L 22 22 eGFR- >60 eGFR-All Other Races . >60 eGFR >=60 mL/min/1.73m 121 Cholesterol, Total <200 mg/dL 542 (H) 179 Triglyceride <150 mg/dL 4,520 (H) 244 (H) HDL Cholesterol >39 mg/dL 12 (L) 34 (L) LDL Cholesterol <100 mg/dL Unable to calculate due to increased Triglycerides. See LDL-Chol, Direct. 96 Non HDL Cholesterol <130 mg/dL 530 (H) 145 (H) Fasting Time hrs 0 10 VLDL Cholesterol <30 mg/dL Unable to calculate due to increased Triglycerides. See LDL-Chol, Direct. 514 (H) 49 (H) TC:HDL Ratio <5.10 45.17 (H) 5.26 (H) LDL:HDL Ratio <2.54 Unable to calculate due to elevated Triglycerides. 2.82 (H) Creatinine, Ur Random (UCRR) 20.0 - 300.0 mg/dL 56.6 81.6 Albumin, Urine Random mg/L 671.0 82.1 Albumin/Creat Ratio <30 mg/g 1,186 (H) 101 (H) Hemoglobin A1C 4.3 - 5.6 % 12.7 (H) 11.1 (H) Estimated Average Glucose mg/dL 318 272 LDL Cholesterol, Direct <100 mg/dL 16 Vitamin D 25 Hydroxy 31.0 - 80.0 ng/mL 7.2 (L) ASSESSMENT/PLAN: 1. Uncontrolled type 2 diabetes mellitus with hyperglycemia (HCC) - ICD9: 250.02, ICD10: E11.65 (primary diagnosis) 5. Type 2 diabetes mellitus with hyperglycemia, with long-term current use of insulin (HCC) - ICD9:250.00, 790.29, V58.67, ICD10: E11.65, Z79.4 Check A1c, previously uncontrolled DM 2. Anxiety and depression - ICD9: 300.00, 311, ICD10: F41.9, F32.A 3. Essential hypertension - ICD9: 401.9, ICD10: I10 Suboptimal control however no recent refills noted and outside med review so we will continue unchanged for now. - LISINOPRIL 20 MG TABLET - PRIMARY CARE SOCIAL WORK CONSULT 6. Primary insomnia - ICD9: 307.42, ICD10: F51.01 We will resume trazodone, can increase dose if needed - TRAZODONE 50 MG TABLET ASSESSMENT/PLAN: 1. Screening for HIV (human immunodeficiency virus) - ICD9: V73.89, ICD10: Z11.4 (primary diagnosis) - HIV 1 2 COMBO(AG/AB),WITH REFLEX TO DIFFERENTIATION 2. Encounter for immunization - ICD9: V03.89, ICD10: Z23 - HEPATITIS B VACCINE, ADULT AGE 20+, IM - PNEUMOCOCCAL VACCINE (PREVNAR 20) - PFIZER-[employer] COVID-19 VACCINE, AGE 12+ YR (RYAN TOP) 3. Bipolar affective disorder, current episode mixed, current episode severity unspecified (HCC) - ICD9: 296.60, ICD10: F31.60 Continue with current treatments for now Reporting abnormal upper extremity movements in the evenings x2 weeks, this may be a possible side effect of current psychiatric drug latuda States not currently seeing psychiatric provider. Recommend scheduling with psychiatry - SERTRALINE 50 MG TABLET - LURASIDONE 40 MG TABLET - OXCARBAZEPINE 300 MG TABLET - CONSULT TO PSYCHIATRY 4. Uncontrolled type 2 diabetes mellitus with hyperglycemia (HCC) - ICD9: 250.02, ICD10: E11.65 States improved control, recommend checking A1c today and adjusting medication accordingly. - HGB A1C - TRULICITY 0.75 MG/0.5 ML SUBCUTANEOUS PEN INJECTOR - ATORVASTATIN 20 MG TABLET - METFORMIN 500 MG TABLET - LISINOPRIL 20 MG TABLET 5. Essential hypertension - ICD9: 401.9, ICD10: I10 - LISINOPRIL 20 MG TABLET 6. Abnormal movements - ICD9: 781.0, ICD10: R25.9 - CONSULT TO PSYCHIATRY As noted outside med review shows no recent fill of routine medications. Continue with diabetes and hypertension treatment unchanged for now. check labs today schedule appt with [facility] psychiatry 3 mo follow up Britney Cervantes APRN.CHILD & ADOLESCENT PSYCHIATRIST 6 mo follow up Michelle Jane MD Schedule an appointment with urology. Britney Cervantes APRN.CHILD & ADOLESCENT PSYCHIATRIST Medical Decision Making: Problems: Moderate: 2+ stable chronic illnesses Data: Unique test(s) ordered: 1 Risk: Moderate: Drug management Medical Decision Making Level: 4 - Moderate documented in [facility] Miscellaneous Notes* Telephone Encounter - Kye Meade RPh - 12/07/2021 11:37 AM EDT Called patient to schedule f/up visit with PharmD for DM mngt. Unable to reach, unable to LMOM since voicemail box not set up. Key Meade PharmD, BCPS Primary Care Clinical Pharmacist [facility] documented in this encounterMer[facility]06-10-2022 Miscellaneous Notes* Telephone Encounter - Britney Cervantes APRN.CNS - 12/01/2021 1:08 PM EDT ok * Telephone Encounter - Aylin Lan LPN - 12/01/2021 11:00 AM EDT Patient calling, states that he has had increased heart burn recently and previously taken Omeprazole. Patient would like it to go to [facility] in [place]. States that he was not able to keep the rescheduled appt time that was given for his appt that had to be cancelled today by Dr. Jane. Asking if the prescription can be sent today. Please advise. documented in this encounterMer[facility]06-02-2022 Miscellaneous Notes* Telephone Encounter - Kye Meade RPh - 11/23/2021 10:58 AM EDT PharmSamia called patient to schedule f/up visit for DM mngt (no show to last scheduled visit in January). Patient has since been hospitalized and was started on sliding scale insulin. Unable to reach patient or LMOM. Will send MyChart message today. Kye Meade PharmD, [facility] Primary Care Clinical Pharmacist [facility] documented in this encounterMercy [facility]05-25-2022 Miscellaneous Notes* Telephone Encounter - Michelle Jane MD - 11/15/2021 2:22 PM EDT The following approved medication requests have been transmitted electronically. Signed Prescriptions Disp Refills insulin glargine (LANTUS SOLOSTAR, BASAGLAR KWIKPEN) 100 unit/mL (3 mL) 10 Pen 11 Sig: Inject 30 Units subcutaneously twice daily. Increase by 2 units every 3 days for goal FBG <130. Max of 90 units/day. [place]: No Authorizing Provider: MICHELLE JANE insulin lispro (HUMALOG U-100 INSULIN) 100 unit/mL crtg 5 Each 11 Sig: Take 12 units with meals. Insulin Sliding Scale: BG 70-150, give 0 units; BG 151-180, give 4 units; BG 181-220, give 6 units; BG 221-260, give 8 units; BG 261-300, give 10 units; BG 301-340, give 12 units; BG 341-380, give 14 units and call provider. [place]: No Authorizing Provider: MICHELLE JANE MD * Telephone Encounter - Rae Trammell LPN - 11/15/2021 2:06 PM EDT [facility] calling patient is wanting the Humalog rx to be pens not vials. Asking for newrx to be sent. Please advise * Telephone Encounter - Michelle Jane MD - 11/15/2021 12:47 PM EDT Sorry did not catch the type from the discharge summary I copied from. It should be 70-150, then 151-180 as noted below. Sent new RXs The following approved medication requests have been transmitted electronically. Signed Prescriptions Disp Refills insulin glargine (LANTUS SOLOSTAR, BASAGLAR KWIKPEN) 100 unit/mL (3 mL) 10 Pen 11 Sig: Inject 30 Units subcutaneously twice daily. Increase by 2 units every 3 days for goal FBG <130. Max of 90 units/day. [place]: No Authorizing Provider: MICHELLE JANE insulin lispro (HUMALOG U-100 INSULIN) 100 unit/mL crtg 1 Each 11 Sig: Take 12 units with meals. Insulin Sliding Scale: BG 70-150, give 0 units; BG 151-180, give 4 units; BG 181-220, give 6 units; BG 221-260, give 8 units; BG 261-300, give 10 units; BG 301-340, give 12 units; BG 341-380, give 14 units and call provider. [place]: No Authorizing Provider: MICHELLE JANE MD * Telephone Encounter - Delano Black RN - 11/15/2021 11:32 AM EDT [facility] asking for clarification on humalog- 2 of the sliding scale numbers overlap: 70-150and 141-180. Did you mean 151-180? Please phone [facility] with reply. The lantus Rx states max of 50 units/day, yet Rx is written to take 30 units twice daily, which is > 50. Please clarify and phone [facility] with reply. documented in this [facility]22 Miscellaneous Notes* Telephone Encounter - Esther Wiggins APRN.CNP - 10/25/2021 2:43 PM EDT Attempted to contact patient in regards to his MRI lumbar spine results. I was unable to reach patient at numbers provided. I was also unable to leave a voicemail message as patient's inbox for voicemail has not been set up. documented in this encounterMer[facility]04-21-2022 Miscellaneous Notes* Telephone Encounter - Jeannie James RPh - 10/12/2021 10:16 AM EDT PharmD calling patient for scheduled visit. Attempted to contact x 4 over 15 minutes. Phone number does not have voicemail set up, unable to leave message. Jeannie James PharmD PGY1 Mine Engineering Superintendent documented in this encounterMercy [facility]04-06-2022 History of Present illness Narrative* Aylin Jorgensen RN - 09/27/2021 2:50 PM EDT Went over discharge instructions with patient. All questions answered. Belongings returned. [facility] * TATUM Ruiz - 09/27/2021 10:59 AM EDT SW met with patient to follow up. Patient voiced excitement about discharge and presented with euthymic mood and bright affect. Patient collaborated with SW to create safety plan and showed good insight regarding triggers, warning signs, coping skills, and supports. Patient voiced gratitude for SW and program staff. SW coordinated with Nathalie, Floor Finisher Helper Jake, and mother Maria E to get patient his home medications that are not currently covered by insurance due to being recently filled. Maria E will leave the medications at the [facility], and Jake will pick them up before coming to [facility] to picked edge sewing machine operator patient for discharge. * Melly Seymour - 09/27/2021 9:20 AM EDT Spiritual Care Progress Note Completed by: Melly Seymour Person(s) Present During this Visit: Patient Time Spent in Direct Patient Care: 60 Narrative: snow plow tractor operator visited with patient when rounding. Explained snow plow tractor operator's role. Provided information regarding pastoral care services, 14/01 availability, and how to contact. Patient shared about the isidro of going to a [facility]. Patient reported brian and family being important to him. Patient requested prayers for help with setting priorities in his lifeand to be a good father and . Carpet Sewing Machine Operator provided empathic and reflective listening without judgement or providing solution. Patient expressed gratitude for snow plow tractor operator's visit and presence. Patients Response to Pastoral Care: Appeared to be well-engaged, Expressed Gratitude for Visit, Visit said to have been helpful Planning for Future Visits: PRN, Pt aware to contact Carpet Sewing Machine Operator as needed Patient's Spiritual Needs Assessment Sources of Connection Daughter, Spouse, Other (see comment) (Clergy) Beliefs and Practices Attends Hoahaoism Services, Prayer Image of the Divine Answers Prayer, Comforter, Listens Role of Divine in Patient's Illness Divine is Source of Support Spiritual Wellness - Activities and Resources Prayer Grief Assessment Humor Expressed / Stated Feelings Expressed Gratitude, Expressed Hope Attitude Towards Own Illness Hope Understanding of Patients Coping Mechanisms Expressing Feelings, Family Support, Prayer/Spiritual Practices Spiritual Diagnosis Spiritual Support and Connection, Awareness of the Sacred Facilitated Interventions Active Listening, Exploring Meaning/Hope, Explained Role of the Carpet Sewing Machine Operator Spiritual and Emotional Outcomes Appreciative, Encouraged, Gratitude Resources Provided Bereavement Resources Spiritual Plan of Care Focus on Wellness, Receive Comfort, Receive Spiritual Support Patient's Hoahaoism Needs Assessment Hoahaoism Connection Active Relationship, Attends as Often as Able Hoahaoism Home Religious Samaritan Affiliation Religious Local Jew Name Hoahaoism Resources Prayer Hoahaoism Rituals Prayer Hoahaoism Materials Provided Sacred Text Expressed Outcomes Expressed Gratitude, Expressed Hope, Expressed Peace Family / Caregiver Needs Assessment Relationship to Patient Affect at Time of Visit Emotions Expressed During Visit Expressed Concerns Regarding Illness Sources of Hope and Strength Support and Participation in Care Grief Assessment Spiritual Assessment Interventions with Family / Friend Outcomes with Family / Friend Melly Seymour MTS , [facility] Advanced Carpet Sewing Machine Operator Practitioner, [facility] Office: [phone] * Geo Fabian MD - 09/27/2021 7:02 AM EDT Psychiatry Progress Note Patient Name: Denver Hollingsworth Admit Date: [id number] MR #: [id number] : 1980 Diagnosis & Plan/Recommendations PRINCIPAL DIAGNOSIS: Mood disorder (HCC) Cocaine dependence with intoxication (HCC) PTSD (post-traumatic stress disorder) Mood disorder (HCC) Assessment & Plan Continue current meds. D/C planning. In a detailed signout in person, Dr. Yu and I discussed this patient. The Tx team meets to discuss the interim course, issues for current Tx, and DC planning. Upon evaluation, the patient was very pleasant and cooperative when seen at 0730. I am great. Going to rehab today. I feel really strong and regular. I need to turn over a new leafinstead of letting drugs control me. I want to fix myself. I need rehab to do that. The change in medicine has been tremendous. Now, I need to change my thoughts in addition. The patient provided additional comments demonstrating his eagerness and enthusiasm to proceed to rehab. I was clean for 2-1/2 years. The patient identified his as a backbone such that he maintain sobriety. Although the patient and his have maintained contact during his hospitalization now, Last night was the first time in 2 weeks that she said that she looked at me. The patient found this very gratifying. Regarding his substance use and consequences, I do not want to live like this. My mood is down to complete 360. It is totally different. This patient is discharged on 1 antipsychotic. The patient does smoke. He declined an offer for an outpatient prescription for nicotine replacement. A lipid panel could not be completed, due to pt's enduring unstable psychological condition, such that pt was uncomfortable proceeding with an additional lab draw. Lab Results Component Value Date HGBA1C 11.0 (H) 09/22/2021 Regarding his hospital course, I have received a lot of help here. It is not just the doctors. I have also gotten a lot of help from patients. The patient volunteered how he has respected others' privacy and does not plan to continue contact with anyone after discharge. Thus, discharge today to rehab. Review of Systems: Pt denied acute medical concerns. Physical Examination: Vital Signs: BP (!) 140/91 (BP Location: Right arm, Patient Position: Sitting) Pulse 95 Temp 97.4 F (36.3 C)(Oral) Resp 14 Ht 6' 4 Wt 122 kg (268 lb 15.4 oz) SpO2 94% BMI 32.74 kg/m Mental Status Evaluation: Grooming & Hygiene: +attention to appearance General Behavior: Cooperative in agreeing to meet with me Psychomotor Activity: no psychomotor abnormalities Speech: volume NL Flow to Thought: goal directed Thought Associations: Intact Content of Thought: Pt has no suicidal or homicidal ideation. Mood: (as above) Affect: responsive Insight: good Judgment: good Orientation: oriented to circumstances Memory: Recent: intact. Remote intact. Attention: intact Concentration: intact Language: Fluent Treatment options and alternatives reviewed with patient. Risks, benefits, side effects of all psychiatric medications discussed with patient and informed consent obtained. All questions were answered. Geo Fabian MD 09/27/2021 7:02 AM * Naheed Davis - 09/26/2021 8:56 PM EDT Patient attended group sessions and interact in group. Pt was able to follow directions. Pt is visible in milieu and socializes with peers and group design inserter. Pt attended group at 15:15 to play the wii with peers. Pt attended group at 17:15 to create and share esteem boosting positive affirmations. Pt attended group at 19:30 lead by nursing students to go over daily goals and mediate with aromatherapy. * Arelis Kraus RN - 09/26/2021 5:48 PM EDT Patient has a euthymic mood, full affect. Visible on the unit. Attends group. Compliant with medication. Social with staff and peers. Grooming good. Denies SI, HI, AVH. * Teresa Toledo CNP - 09/26/2021 2:25 PM EDT [facility] Inpatient Progress Note 09/26/2021 Denver Hollingsworth 1980 [id number] Assessment/Plan: Denver Hollingsworth is a 41 y.o. male with a history of IDDM2, HTN, mood disorder who presented to [facility] for suicidal ideation and threatening to harm his . Transferred to [facility] inpatient psych unit 09/22/2021 for continued aggressive psychiatric care[facility]. 1. Suicidal Ideation: Threatened to kill himself by driving off a stephen. Also threatened to harm his . Noncompliant with psychiatric medications. Cocaine use contributed. Close monitoring for patient safety. Continue aggressive psychiatric care. 2. Mood Disorder: per hx. Stopped taking home medications 8 days prior to admit. Defer medication management to . 3. IDDM2 with Hyperglycemia: Med noncompliance. A1c 11.0 on 09/22/21. Resumed home metformin. Increased Lantus 09/23/21. Persistent hyperglycemia up to 300s on 09/25/2021, increased prandial and basal 09/25/2021. Continued SSI + prandial, last titrated 09/26/2021. Sent scripts for Trulicity, humalog, lantus,and all supplies to [facility] 09/26/2021. Recommended follow up with PCP 4. HTN: per hx. Continued ACEi. Monitor. 5. Chronic Back Pain: per hx. Patient reported known bulging discs, planned for future elective surgery. Added Lidocaine patch. PRN tylenol. 6. SUE: Baseline Cr wnl. Cr at [facility] 1.40. Suspect prerenal. Normalized on admit. ACEi resumed as above. 7. Cocaine Abuse: per hx. Recommend cessation. 8. Obesity: Body mass index is 32.74 kg/m . Lifestyle modifications 9. DVT Prophylaxis: ambulate Current living situation: home Estimated discharge date: 09/27/21 Subjective: BG trends still high in the 200s, but this is much improved from his baseline at home. Reviewed alldischarge meds with patient and sent new prescriptions for all home meds to [facility] since pt will be discharging to a rehab facility. Patient is known to me today. Today I personally did a review of prior medical records and have summarized my findings in my assessment and plan as noted above. Today I also reviewed recent labs, diagnostics, vitals including pulse ox, and microsoft dynamics consultant/other provider recommendations. Physical Exam: BP 133/86 Pulse 85 Temp 97.5 F (36.4 C) (Oral) Resp 16 Ht 6' 4 Wt 122 kg (268 lb 15.4 oz) SpO2 97% BMI 32.74 kg/m General: NAD Eyes: No icterus. Gaze conjugate ENT: Neck supple. Cardiovascular: RRR. Respiratory: Even, unlabored respirations on RA. Gastrointestinal: Soft, nondistended Musculoskeletal: No edema Skin: No visible rashes Neuro: Awake and alert. Speech clear. Gait stable. Psych: Mood appropriate. Current Medications: atorvastatin 20 mg Oral Nightly insulin glargine 26 Units Subcutaneous BID lispro insulin 0-15 Units Subcutaneous at bedtime insulin lispro 0-30 Units Subcutaneous TID AC lidocaine 1 patch Transdermal Daily lisinopriL 10 mg Oral Daily with lunch lurasidone 40 mg Oral Daily with dinner metFORMIN 1,000 mg Oral BID with meals nicotine 1 patch Transdermal Daily OXcarbazepine 300 mg Oral BID traZODone 100 mg Oral Nightly Labs, Imaging and Studies reviewed: Results from last 7 days Lab Units 09/22/21 0905 WBC K/mcL 10.07 HGB g/dL 16.3 HCT % 46.6 PLT K/mcL 137* Results from last 7 days Lab Units 09/22/21 0904 SODIUM mmol/L 136 POTASSIUM mmol/L 4.7 CHLORIDE mmol/L 100 BICARB mmol/L 21 BUN mg/dL 27* CREATININE mg/dL 0.79 EGFR mL/min/1.73 m2 112 GLUCOSE mg/dL 307* CALCIUM mg/dL 10.2 * JUAN MANUEL Schroeder - 09/26/2021 1:00 PM EDT Patient attended group sessions and interact in group. Pt was able to follow directions. Pt is visible in milieu and socializes with peers and C.T.R.S.. Patient attend goals group and the 11 am groupsession that was run by the nursing students. Patient played Would you Rather with the students. * Deandra Velasquez RN - 09/26/2021 10:57 AM EDT Pt is dressed in casual clothing and had a shower today. Pt makes good eye contact and engages wellwith property underwriter. Pt reports a good mood. Pt denies suicidal and homicidal ideation. Pt is linear and logical in his thinking. He is calm and cooperative. He is attending groups and is social with peers. * TATUM Ruiz - 09/26/2021 8:00 AM EDT SW called Pastor Joseph and confirmed that he will pick patient up on Saturday at 3pm at [facility] and will call the nurse's station when he arrives. SW called patient's mother Maria E to provide update on discharge plan. Maria E inquired if SW spoke with patient's , SW reported that patient did not want to sign RHEA for his so she has not been able to communicate with her. Maria E voiced understanding. Maria E asked questions about [facility] rules, SW provided her with their phone number and directed questions towards their staff. SW called [facility] contact Ronal and stated patient would be there for admission around 5:30pm on Saturday, Ronal stated that this was fine. SW confirmed that Ronal received fax with assessment and medication list and stated she would fax discharge paperwork there after patient's discharge to [facility]. Ronal voiced understanding and gratitude. SW met with patient to follow up and informed him of discharge plan tomorrow at 3pm. Patient voicedunderstanding and gratitude. Patient's called and voiced anger about SW not calling her. SW explained that patient did not want to sign RHEA for . was advised to call Pastor Joseph to discuss discharge detail as she was under the impresson that she was supposed to drop his belongings at the hospital. voiced understanding and stated she would call patient and Pastor Joseph. Patient signed RHEA for with [facility] ADOLESCENT PSYCHIATRIST. SW called and answered questions about discharge and medications. She will drop patient's belongings off to Pastor Joseph who will bring them for patient's discharge tomorrow. * MILLIE Bowers - 09/26/2021 4:58 AM EDT Psychiatry Progress Note Patient Name: Denver Hollingsworth Admit Date: [id number] MR #: [id number] : 1980 Perpetual Assessment Denver Hollingsworth is a 41 y.o. male presenting from an outside hospital on a pink slip. He had been taken there by police after he was outside of his home with a steel pipe threatening to kill his and then ultimately threatened to kill himself. Patient was intoxicated on cocaine at the time of this event. He does have a history of mood disorder diagnosis. He has been admitted to the psychiatricunit for further evaluation, safety and stabilization. Diagnosis & Plan/Recommendations PRINCIPAL DIAGNOSIS: Mood disorder (HCC) Cocaine dependence with intoxication (HCC) Assessment & Plan Patient has a longstanding history of cocaine dependence with a 2-year period of sobriety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 unspecified 04/06/2005 12/09/2022 Last Assessment & Plan: Assessment: Body mass index is 37 kg/m . documented as of this encounter (statuses as of 12/27/2022) [facility] illness Narrative* Problem Noted Date Diagnosed Date Resolved Date Obesity, unspecified 04/06/2005 023 Last Assessment & Plan: Assessment: Body mass index is 37 kg/m . documented as of this encounter (statuses as of 01/03/2023) [address]14-2005 History of Past illness Narrative* Problem Noted Date Diagnosed Date Resolved Date Obesity, unspecified 04/06/2005 023 Last Assessment & Plan: Assessment: Body mass index is 37 kg/m . documented as of this encounter (statuses as of 01/04/2023) [facility] Narrative* Problem Noted Date Diagnosed Date Resolved Date Obesity, unspecified 04/06/2005 023 Last Assessment & Plan: Assessment: Body mass index is 37 kg/m . documented as of this encounter (statuses as of 01/04/2023) [facility] Narrative* Problem Noted Date Diagnosed Date Resolved Date Obesity, unspecified 04/06/2005 023 Last Assessment & Plan: Assessment: Body mass index is 37 kg/m . documented as of this encounter (statuses as of 01/17/2023) [facility] Narrative* Problem Noted Date Diagnosed Date Resolved Date Obesity, unspecified 04/06/2005 023 Last Assessment & Plan: Assessment: Body mass index is 37 kg/m . documented as of this encounter (statuses as of 01/18/2023) [facility] Narrative* Problem Noted Date Diagnosed Date Resolved Date Obesity, unspecified 04/06/2005 023 Last Assessment & Plan: Assessment: Body mass index is 37 kg/m . documented as of this encounter (statuses as of 01/18/2023) [facility] Narrative* Problem Noted Date Diagnosed Date Resolved Date Obesity, unspecified 04/06/2005 023 Last Assessment & Plan: Assessment: Body mass index is 37 kg/m . documented as of this encounter (statuses as of 01/31/2023) [facility] Narrative* Problem Noted Date Diagnosed Date Resolved Date Obesity, unspecified 04/06/2005 023 Last Assessment & Plan: Assessment: Body mass index is 37 kg/m . documented as of this encounter (statuses as of 01/31/2023) [facility] Narrative* Problem Noted Date Diagnosed Date Resolved Date Obesity, unspecified 04/06/2005 023 Last Assessment & Plan: Assessment: Body mass index is 37 kg/m . documented as of this encounter (statuses as of 02/02/2023) [facility] Narrative* Problem Noted Date Diagnosed Date Resolved Date Obesity, unspecified 04/06/2005 023 Last Assessment & Plan: Assessment: Body mass index is 37 kg/m . documented as of this encounter (statuses as of 02/11/2023) [facility] Narrative* Problem Noted Date Diagnosed Date Resolved Date Obesity, unspecified 04/06/2005 023 Last Assessment & Plan: Assessment: Body mass index is 37 kg/m . documented as of this encounter (statuses as of 02/13/2023) [facility] Narrative* Problem Noted Date Diagnosed Date Resolved Date Obesity, unspecified 04/06/2005 023 Last Assessment & Plan: Assessment: Body mass index is 37 kg/m . documented as of this encounter (statuses as of 02/15/2023) [facility] Narrative* Problem Noted Date Diagnosed Date Resolved Date Obesity, unspecified 04/06/2005 023 Last Assessment & Plan: Assessment: Body mass index is 37 kg/m . documented as of this encounter (statuses as of 02/22/2023) [facility] Narrative* Problem Noted Date Diagnosed Date Resolved Date Obesity, unspecified 04/06/2005 023 Last Assessment & Plan: Assessment: Body mass index is 37 kg/m . documented as of this encounter (statuses as of 02/27/2023) [address]14-2005 History of Past illness Narrative* Problem Noted Date Diagnosed Date Resolved Date Obesity, unspecified 04/06/2005 023 Last Assessment & Plan: Assessment: Body mass index is 37 kg/m . documented as of this encounter (statuses as of 03/12/2023) [facility] Narrative* Problem Noted Date Diagnosed Date Resolved Date Obesity, unspecified 04/06/2005 023 Last Assessment & Plan: Assessment: Body mass index is 37 kg/m . documented as of this encounter (statuses as of 03/13/2023) [address]14-2005 History of Past illness Narrative* Problem Noted Date Diagnosed Date Resolved Date Obesity, unspecified 04/06/2005 023 Last Assessment & Plan: Assessment: Body mass index is 37 kg/m . documented as of this encounter (statuses as of 03/14/2023) [facility] Narrative* Problem Noted Date Diagnosed Date Resolved Date Obesity, unspecified 04/06/2005 023 Last Assessment & Plan: Assessment: Body mass index is 37 kg/m . documented as of this encounter (statuses as of 03/19/2023) [facility]10-14-2005 History of Past illness Narrative* Problem Noted Date Diagnosed Date Resolved Date Obesity, unspecified 04/06/2005 023 Last Assessment & Plan: Assessment: Body mass index is 37 kg/m . documented as of this encounter (statuses as of 03/20/2023) [facility]10-14-2005 History of Past illness Narrative* Problem Noted Date Diagnosed Date Resolved Date Obesity, unspecified 04/06/2005 023 Last Assessment & Plan: Assessment: Body mass index is 37 kg/m . documented as of this encounter (statuses as of 03/29/2023) [address]14-2005 History of Past illness Narrative* Problem Noted Date Diagnosed Date Resolved Date Obesity, unspecified 04/06/2005 023 Last Assessment & Plan: Assessment: Body mass index is 37 kg/m . documented as of this encounter (statuses as of 03/30/2023) [facility] note* Diagnosis Right testicular pain Unspecified disorder of male genital organs documented in this encounter [facility] noteNo assessment information availableWWVUMedicine [facility] Work Phone: Evaluation note* Diagnosis Mood disorder (HCC)- Primary Unspecified episodic mood disorder PTSD (post-traumatic stress disorder) Posttraumatic stress disorder Cocaine dependence with intoxication (HCC) documented in this encounter [facility] note* Diagnosis Screening for HIV (human immunodeficiency virus)- Primary Special screening examination for other specified viral diseases Encounter for immunization Need for other specified prophylactic vaccination against single bacterial disease Bipolar affective disorder, current episode mixed, current episode severity unspecified (HCC) Uncontrolled type 2 diabetes mellitus with hyperglycemia (HCC) Essential hypertension Unspecified essential hypertension Abnormal movements documented in this encounter [facility] note* Diagnosis Essential hypertension- Primary Unspecified essential hypertension Labile blood pressure Elevated blood pressure reading without diagnosis of hypertension documented in this encounter [facility] note* Diagnosis Essential hypertension- Primary Unspecified essential hypertension Snoring Other dyspnea and respiratory abnormality Uncontrolled type 2 diabetes mellitus with hyperglycemia (HCC) Primary insomnia Persistent disorder of initiating or maintaining sleep Excessive daytime sleepiness Class 2 severe obesity with serious comorbidity and body mass index (BMI) of 37.0 to 37.9 in adult, unspecified obesity type (HCC) Anxiety and depression Dysthymic disorder Bipolar affective disorder, current episode mixed, current episode severity unspecified (HCC) PTSD (post-traumatic stress disorder) Posttraumatic stress disorder documented in this encounter [facility] note* Diagnosis Uncontrolled type 2 diabetes mellitus with hyperglycemia (HCC)- Primary Callus of foot Corns and callosities Pes cavus Talipes cavus documented in this encounter [facility] note* Diagnosis Essential hypertension- Primary Unspecified essential hypertension Mixed hyperlipidemia BERYL (obstructive sleep apnea) Obstructive sleep apnea (adult) (pediatric) Uncontrolled type 2 diabetes mellitus with hyperglycemia (HCC) Gastroesophageal reflux disease with esophagitis, unspecified whether hemorrhage BMI 34.0-34.9,adult Body Mass Index 34.0-34.9, adult documented in this encounter [facility] note* Diagnosis Uncontrolled type 2 diabetes mellitus with hyperglycemia (HCC)- Primary [facility] Diagnosis Uncontrolled type 2 diabetes mellitus with hyperglycemia (HCC)- Primary documented in this encounter [facility] note* Diagnosis Type 2 diabetes mellitus without retinopathy (HCC)- Primary Type II or unspecified type diabetes mellitus without mention of complication, not stated as uncontrolled Myopia, bilateral Myopia Regular astigmatism of both eyes Regular astigmatism Presbyopia documented in this encounter [facility] note* Diagnosis Medication management- Primary Encounter for long-term (current) use of other medications [facility] Diagnosis Uncontrolled type 2 diabetes mellitus with hyperglycemia (HCC)- Primary Essential hypertension Unspecified essential hypertension documented in this encounter [facility] note* Diagnosis Uncontrolled type 2 diabetes mellitus with hyperglycemia (HCC)- Primary Medication management Encounter for long-term (current) use of other medications documented in this encounter [facility] note* Diagnosis Nausea and vomiting, unspecified vomiting type- Primary Change in bowel habits Other symptoms involving digestive system Abdominal bloating Flatulence, eructation, and gas pain Early satiety History of cocaine use Cocaine abuse, in remission History of Helicobacter pylori infection Personal history of other infectious and parasitic disease Belching Flatulence, eructation, and gas pain documented in this encounter [facility] note* Diagnosis Uncontrolled type 2 diabetes mellitus with hyperglycemia (HCC)- Primary Bile acid esophageal reflux Bile salt-induced diarrhea Other specified intestinal malabsorption Bilious vomiting with nausea Mixed hyperlipidemia Essential hypertension Unspecified essential hypertension Obesity (BMI 30.0-34.9) Obesity, unspecified documented in this encounter [facility] note* Diagnosis Nausea and vomiting, unspecified vomiting type- Primary Belching Flatulence, eructation, and gas pain Esophageal dysphagia Dysphagia, pharyngoesophageal phase Early satiety S/P cholecystectomy Other acquired absence of organ documented in this encounter [facility] note* Diagnosis Nausea- Primary Nausea alone Nausea and vomiting, unspecified vomiting type Belching Flatulence, eructation, and gas pain Esophageal dysphagia Dysphagia, pharyngoesophageal phase documented in this encounter [facility] note* Diagnosis Kidney stones Calculus of kidney Uncontrolled type 2 diabetes mellitus with hyperglycemia (HCC) documented in this encounter [facility] note* Diagnosis Nausea Nausea alone [facility]* Diagnosis Esophageal dysphagia Dysphagia, pharyngoesophageal phase [facility] Diagnosis Esophageal dysphagia Dysphagia, pharyngoesophageal phase [facility] Diagnosis Kidney stones Calculus of kidney [facility] Diagnosis Gastroparesis due to secondary diabetes (HCC) Secondary diabetes mellitus with neurological manifestations, not stated as uncontrolled, or unspecified [facility]* Diagnosis Gastroparesis due to secondary diabetes (HCC)- Primary Secondary diabetes mellitus with neurological manifestations, not stated as uncontrolled, or unspecified Early satiety [facility] Diagnosis Bile acid esophageal reflux [facility] Diagnosis Kidney stones Calculus of kidney [facility] Diagnosis Lumbar back pain- Primary Lumbago Kidney stones Calculus of kidney Bipolar affective disorder, current episode mixed, current episode severity unspecified ([facility]) Primary insomnia Persistent disorder of initiating or maintaining sleep Uncontrolled type 2 diabetes mellitus with hyperglycemia ([facility]) Encounter for immunization Need for other specified prophylactic vaccination against single bacterial disease [facility] Diagnosis Precordial pain- Primary Anxiety and depression Dysthymic disorder Bipolar affective disorder, currently manic, mild (HCC) Bipolar I disorder, most recent episode (or current) manic, mild PTSD (post-traumatic stress disorder) Posttraumatic stress disorder Substance abuse (HCC) Other, mixed, or unspecified nondependent drug abuse, unspecified Obesity (BMI 30.0-34.9) Obesity, unspecified Essential hypertension Unspecified essential hypertension Mixed hyperlipidemia BERYL (obstructive sleep apnea) Obstructive sleep apnea (adult) (pediatric) Tobacco use Tobacco use disorder Encounter for screening for cardiovascular disorders Screening for other and unspecified cardiovascular conditions [facility] Diagnosis Sensorineural hearing loss (SNHL) of both ears- Primary [facility] Diagnosis Sensorineural hearing loss (SNHL) of both ears [facility]* Diagnosis Uncontrolled type 2 diabetes mellitus with hyperglycemia (HCC)- Primary [facility]* Diagnosis Uncontrolled type 2 diabetes mellitus with hyperglycemia (HCC) [facility]* Diagnosis Erectile dysfunction due to diseases classified elsewhere- Primary Uncontrolled type 2 diabetes mellitus with hyperglycemia (HCC) Chronic bilateral low back pain with left-sided sciatica Chronic intractable headache, unspecified headache type documented in this encounter [facility] note* Diagnosis Low back pain, unspecified back pain laterality, unspecified chronicity, unspecified whether sciatica present Low back pain, unspecified back pain laterality, unspecified chronicity, unspecified whether sciatica present- Primary documented in this encounter [facility] note* Diagnosis Lump of skin of back Localized superficial swelling, mass, or lump Low back pain, unspecified back pain laterality, unspecified chronicity, unspecified whether sciatica present- Primary documented in this encounter [facility] note* Diagnosis Uncontrolled type 2 diabetes mellitus with hyperglycemia (HCC)- Primary Cervical spine pain Cervicalgia Thoracolumbar back pain Backache, unspecified DDD (degenerative disc disease), thoracolumbar Degeneration of thoracic or thoracolumbar intervertebral disc Essential hypertension Unspecified essential hypertension Mixed hyperlipidemia Vitamin D deficiency Unspecified vitamin D deficiency Lump of skin of back Localized superficial swelling, mass, or lump documented in this encounter [facility] note* Diagnosis Cervical spine pain- Primary Cervicalgia Thoracolumbar back pain Backache, unspecified DDD (degenerative disc disease), thoracolumbar Degeneration of thoracic or thoracolumbar intervertebral disc documented in this encounter [facility] note* Diagnosis Cervical spine pain- Primary Cervicalgia Thoracolumbar back pain Backache, unspecified DDD (degenerative disc disease), thoracolumbar Degeneration of thoracic or thoracolumbar intervertebral disc documented in this encounter [facility] note* Diagnosis Preoperative examination- Primary Preoperative examination, unspecified Right testicular pain Unspecified disorder of male genital organs Essential hypertension Unspecified essential hypertension Mixed hyperlipidemia Gastroesophageal reflux disease with esophagitis Diabetes mellitus type 2, uncontrolled, without complications Type II or unspecified type diabetes mellitus without mention of complication, uncontrolled Bipolar affective disorder, remission status unspecified ([facility]) Substance abuse (HCC) Other, mixed, or unspecified nondependent drug abuse, unspecified Cervical spine pain- Primary Cervicalgia Thoracolumbar back pain Backache, unspecified DDD (degenerative disc disease), thoracolumbar Degeneration of thoracic or thoracolumbar intervertebral disc documented in this encounter [facility] note* Diagnosis Preoperative examination- Primary Preoperative examination, unspecified Right testicular pain Unspecified disorder of male genital organs Essential hypertension Unspecified essential hypertension Mixed hyperlipidemia Gastroesophageal reflux disease with esophagitis Diabetes mellitus type 2, uncontrolled, without complications Type II or unspecified type diabetes mellitus without mention of complication, uncontrolled Bipolar affective disorder, remission status unspecified (HCC) Substance abuse (HCC) Other, mixed, or unspecified nondependent drug abuse, unspecified Chronic bilateral low back pain without sciatica- Primary documented in this encounter [facility] note* Diagnosis Preoperative examination- Primary Preoperative examination, unspecified Right testicular pain Unspecified disorder of male genital organs Essential hypertension Unspecified essential hypertension Mixed hyperlipidemia Gastroesophageal reflux disease with esophagitis Diabetes mellitus type 2, uncontrolled, without complications Type II or unspecified type diabetes mellitus without mention of complication, uncontrolled Bipolar affective disorder, remission status unspecified (HCC) Substance abuse (HCC) Other, mixed, or unspecified nondependent drug abuse, unspecified Chronic bilateral low back pain without sciatica documented in this encounter [facility] note* Diagnosis Preoperative examination- Primary Preoperative examination, unspecified Right testicular pain Unspecified disorder of male genital organs Essential hypertension Unspecified essential hypertension Mixed hyperlipidemia Gastroesophageal reflux disease with esophagitis Diabetes mellitus type 2, uncontrolled, without complications Type II or unspecified type diabetes mellitus without mention of complication, uncontrolled Bipolar affective disorder, remission status unspecified (HCC) Substance abuse (HCC) Other, mixed, or unspecified nondependent drug abuse, unspecified Chronic bilateral low back pain without sciatica- Primary documented in this encounter [facility] note* Diagnosis Preoperative examination- Primary Preoperative examination, unspecified Right testicular pain Unspecified disorder of male genital organs Essential hypertension Unspecified essential hypertension Mixed hyperlipidemia Gastroesophageal reflux disease with esophagitis Diabetes mellitus type 2, uncontrolled, without complications Type II or unspecified type diabetes mellitus without mention of complication, uncontrolled Bipolar affective disorder, remission status unspecified (HCC) Substance abuse (HCC) Other, mixed, or unspecified nondependent drug abuse, unspecified Chronic bilateral low back pain without sciatica- Primary Chronic bilateral low back pain without sciatica documented in this encounter [facility] note* Diagnosis Preoperative examination- Primary Preoperative examination, unspecified Right testicular pain Unspecified disorder of male genital organs Essential hypertension Unspecified essential hypertension Mixed hyperlipidemia Gastroesophageal reflux disease with esophagitis Diabetes mellitus type 2, uncontrolled, without complications Type II or unspecified type diabetes mellitus without mention of complication, uncontrolled Bipolar affective disorder, remission status unspecified (HCC) Substance abuse (HCC) Other, mixed, or unspecified nondependent drug abuse, unspecified Thoracolumbar back pain- Primary Backache, unspecified DDD (degenerative disc disease), thoracolumbar Degeneration of thoracic or thoracolumbar intervertebral disc Uncontrolled type 2 diabetes mellitus with hyperglycemia (HCC) Chronic bilateral low back pain without sciatica [facility]* Diagnosis Preoperative examination- Primary Preoperative examination, unspecified Right testicular pain Unspecified disorder of male genital organs Essential hypertension Unspecified essential hypertension Mixed hyperlipidemia Gastroesophageal reflux disease with esophagitis Diabetes mellitus type 2, uncontrolled, without complications Type II or unspecified type diabetes mellitus without mention of complication, uncontrolled Bipolar affective disorder, remission status unspecified (HCC) Substance abuse (HCC) Other, mixed, or unspecified nondependent drug abuse, unspecified Injury of left ankle, initial encounter Pain in left ankle and joints of left foot Chronic bilateral low back pain without sciatica [facility]* Diagnosis Preoperative examination- Primary Preoperative examination, unspecified Right testicular pain Unspecified disorder of male genital organs Essential hypertension Unspecified essential hypertension Mixed hyperlipidemia Gastroesophageal reflux disease with esophagitis Diabetes mellitus type 2, uncontrolled, without complications Type II or unspecified type diabetes mellitus without mention of complication, uncontrolled Bipolar affective disorder, remission status unspecified (HCC) Substance abuse (HCC) Other, mixed, or unspecified nondependent drug abuse, unspecified Bipolar affective disorder, current episode mixed, current episode severity unspecified (HCC) Primary insomnia Persistent disorder of initiating or maintaining sleep Chronic bilateral low back pain without sciatica [facility]* Diagnosis Preoperative examination- Primary Preoperative examination, unspecified Right testicular pain Unspecified disorder of male genital organs Essential hypertension Unspecified essential hypertension Mixed hyperlipidemia Gastroesophageal reflux disease with esophagitis Diabetes mellitus type 2, uncontrolled, without complications Type II or unspecified type diabetes mellitus without mention of complication, uncontrolled Bipolar affective disorder, remission status unspecified (HCC) Substance abuse (HCC) Other, mixed, or unspecified nondependent drug abuse, unspecified Bipolar affective disorder, current episode mixed, current episode severity unspecified (HCC) documented in this encounter [facility] note* Diagnosis Preoperative examination- Primary Preoperative examination, unspecified Right testicular pain Unspecified disorder of male genital organs Essential hypertension Unspecified essential hypertension Mixed hyperlipidemia Gastroesophageal reflux disease with esophagitis Diabetes mellitus type 2, uncontrolled, without complications Type II or unspecified type diabetes mellitus without mention of complication, uncontrolled Bipolar affective disorder, remission status unspecified (HCC) Substance abuse (HCC) Other, mixed, or unspecified nondependent drug abuse, unspecified Uncontrolled type 2 diabetes mellitus with hyperglycemia (HCC) documented in this encounter [facility] note* Diagnosis Preoperative examination- Primary Preoperative examination, unspecified Right testicular pain Unspecified disorder of male genital organs Essential hypertension Unspecified essential hypertension Mixed hyperlipidemia Gastroesophageal reflux disease with esophagitis Diabetes mellitus type 2, uncontrolled, without complications Type II or unspecified type diabetes mellitus without mention of complication, uncontrolled Bipolar affective disorder, remission status unspecified (HCC) Substance abuse (HCC) Other, mixed, or unspecified nondependent drug abuse, unspecified Uncontrolled type 2 diabetes mellitus with hyperglycemia (HCC)- Primary Dizziness Dizziness and giddiness Agitation Other and unspecified special symptom or syndrome, not elsewhere classified Noncompliance with medication regimen Personal history of noncompliance with medical treatment, presenting hazards to health documented in this encounter [facility] note* Diagnosis Preoperative examination- Primary Preoperative examination, unspecified Right testicular pain Unspecified disorder of male genital organs Essential hypertension Unspecified essential hypertension Mixed hyperlipidemia Gastroesophageal reflux disease with esophagitis Diabetes mellitus type 2, uncontrolled, without complications Type II or unspecified type diabetes mellitus without mention of complication, uncontrolled Bipolar affective disorder, remission status unspecified (HCC) Substance abuse (HCC) Other, mixed, or unspecified nondependent drug abuse, unspecified Bipolar disorder, current episode mixed, moderate (HCC)- Primary Bipolar I disorder, most recent episode (or current) mixed, moderate Uncontrolled type 2 diabetes mellitus with hyperglycemia (HCC) documented in this encounter [facility] note* Diagnosis Preoperative examination- Primary Preoperative examination, unspecified Right testicular pain Unspecified disorder of male genital organs Essential hypertension Unspecified essential hypertension Mixed hyperlipidemia Gastroesophageal reflux disease with esophagitis Diabetes mellitus type 2, uncontrolled, without complications Type II or unspecified type diabetes mellitus without mention of complication, uncontrolled Bipolar affective disorder, remission status unspecified (HCC) Substance abuse (HCC) Other, mixed, or unspecified nondependent drug abuse, unspecified Bipolar affective disorder, current episode mixed, current episode severity unspecified (HCC)- Primary Uncontrolled type 2 diabetes mellitus with hyperglycemia (HCC) Vitamin D deficiency Unspecified vitamin D deficiency Mixed hyperlipidemia Essential hypertension Unspecified essential hypertension documented in this encounter [facility] note* Diagnosis Preoperative examination- Primary Preoperative examination, unspecified Right testicular pain Unspecified disorder of male genital organs Essential hypertension Unspecified essential hypertension Mixed hyperlipidemia Gastroesophageal reflux disease with esophagitis Diabetes mellitus type 2, uncontrolled, without complications Type II or unspecified type diabetes mellitus without mention of complication, uncontrolled Bipolar affective disorder, remission status unspecified (HCC) Substance abuse (HCC) Other, mixed, or unspecified nondependent drug abuse, unspecified Uncontrolled type 2 diabetes mellitus with hyperglycemia (HCC)- Primary Medication management Encounter for long-term (current) use of other medications documented in this encounter [facility] note* Diagnosis Preoperative examination- Primary Preoperative examination, unspecified Right testicular pain Unspecified disorder of male genital organs Essential hypertension Unspecified essential hypertension Mixed hyperlipidemia Gastroesophageal reflux disease with esophagitis Diabetes mellitus type 2, uncontrolled, without complications Type II or unspecified type diabetes mellitus without mention of complication, uncontrolled Bipolar affective disorder, remission status unspecified (HCC) Substance abuse (HCC) Other, mixed, or unspecified nondependent drug abuse, unspecified Bipolar disorder, current episode mixed, moderate (HCC)- Primary Bipolar I disorder, most recent episode (or current) mixed, moderate Uncontrolled type 2 diabetes mellitus with hyperglycemia (HCC) Primary insomnia Persistent disorder of initiating or maintaining sleep Essential hypertension Unspecified essential hypertension Bile acid esophageal reflux Housing instability, housed, homelessness in past 12 months documented in this encounter [facility] note* Diagnosis Preoperative examination- Primary Preoperative examination, unspecified Right testicular pain Unspecified disorder of male genital organs Essential hypertension Unspecified essential hypertension Mixed hyperlipidemia Gastroesophageal reflux disease with esophagitis Diabetes mellitus type 2, uncontrolled, without complications Type II or unspecified type diabetes mellitus without mention of complication, uncontrolled Bipolar affective disorder, remission status unspecified (HCC) Substance abuse (HCC) Other, mixed, or unspecified nondependent drug abuse, unspecified Uncontrolled type 2 diabetes mellitus with hyperglycemia (HCC) Uncontrolled type 2 diabetes mellitus with hyperglycemia (HCC)- Primary documented in this encounter [facility] note* Diagnosis Preoperative examination- Primary Preoperative examination, unspecified Right testicular pain Unspecified disorder of male genital organs Essential hypertension Unspecified essential hypertension Mixed hyperlipidemia Gastroesophageal reflux disease with esophagitis Diabetes mellitus type 2, uncontrolled, without complications Type II or unspecified type diabetes mellitus without mention of complication, uncontrolled Bipolar affective disorder, remission status unspecified (HCC) Substance abuse (HCC) Other, mixed, or unspecified nondependent drug abuse, unspecified Bipolar disorder, current episode mixed, moderate (HCC) Bipolar I disorder, most recent episode (or current) mixed, moderate Uncontrolled type 2 diabetes mellitus with hyperglycemia (HCC)- Primary documented in this encounter [facility] note* Diagnosis Preoperative examination- Primary Preoperative examination, unspecified Right testicular pain Unspecified disorder of male genital organs Essential hypertension Unspecified essential hypertension Mixed hyperlipidemia Gastroesophageal reflux disease with esophagitis Diabetes mellitus type 2, uncontrolled, without complications Type II or unspecified type diabetes mellitus without mention of complication, uncontrolled Bipolar affective disorder, remission status unspecified (HCC) Substance abuse (HCC) Other, mixed, or unspecified nondependent drug abuse, unspecified Uncontrolled type 2 diabetes mellitus with hyperglycemia (HCC)- Primary documented in this encounter [facility] note* Diagnosis Preoperative examination- Primary Preoperative examination, unspecified Right testicular pain Unspecified disorder of male genital organs Essential hypertension Unspecified essential hypertension Mixed hyperlipidemia Gastroesophageal reflux disease with esophagitis Diabetes mellitus type 2, uncontrolled, without complications Type II or unspecified type diabetes mellitus without mention of complication, uncontrolled Bipolar affective disorder, remission status unspecified (HCC) Substance abuse (HCC) Other, mixed, or unspecified nondependent drug abuse, unspecified Uncontrolled type 2 diabetes mellitus with hyperglycemia (HCC)- Primary documented in this encounter [facility] note* Diagnosis Preoperative examination- Primary Preoperative examination, unspecified Right testicular pain Unspecified disorder of male genital organs Essential hypertension Unspecified essential hypertension Mixed hyperlipidemia Gastroesophageal reflux disease with esophagitis Diabetes mellitus type 2, uncontrolled, without complications Type II or unspecified type diabetes mellitus without mention of complication, uncontrolled Bipolar affective disorder, remission status unspecified (HCC) Substance abuse (HCC) Other, mixed, or unspecified nondependent drug abuse, unspecified Uncontrolled type 2 diabetes mellitus with hyperglycemia (HCC)- Primary documented in this encounter [facility] note* Diagnosis Preoperative examination- Primary Preoperative examination, unspecified Right testicular pain Unspecified disorder of male genital organs Essential hypertension Unspecified essential hypertension Mixed hyperlipidemia Gastroesophageal reflux disease with esophagitis Diabetes mellitus type 2, uncontrolled, without complications Type II or unspecified type diabetes mellitus without mention of complication, uncontrolled Bipolar affective disorder, remission status unspecified (HCC) Substance abuse (HCC) Other, mixed, or unspecified nondependent drug abuse, unspecified Uncontrolled type 2 diabetes mellitus with hyperglycemia (HCC)- [facility] Diagnosis Preoperative examination- Primary Preoperative examination, unspecified Right testicular pain Unspecified disorder of male genital organs Essential hypertension Unspecified essential hypertension Mixed hyperlipidemia Gastroesophageal reflux disease with esophagitis Diabetes mellitus type 2, uncontrolled, without complications Type II or unspecified type diabetes mellitus without mention of complication, uncontrolled Bipolar affective disorder, remission status unspecified (HCC) Substance abuse (HCC) Other, mixed, or unspecified nondependent drug abuse, unspecified Inadequately controlled diabetes mellitus (HCC)- Primary Type II or unspecified type diabetes mellitus without mention of complication, not stated as uncontrolled documented in this encounter [facility] for referral (narrative)* Diagnostic Procedure Only (Routine) - Authorized Specialty Diagnoses / Procedures Referred By Bennett santos Referred To Contact [facility] Diagnoses Snoring Excessive daytime sleepiness Procedures HOME SLEEP APNEA TEST (HSAT) SLEEP STD AIRFLOW HRT RATE&O2 SAT EFFORT UNATT Hope Ivory APRN.CNP [address] [place] [address] Neurological [place] [address] [place] [address] Referral ID Status Reason Start Date Expiration Date Visits Requested Visits Authorized [id number] Authorized Auto-Generat ed Referral 04/25/2022 04/25/2023 1 1 [facility] for referral (narrative)* Outpatient Procedure (Routine) - Authorized Specialty Diagnoses / Procedures Referred By Bennett santos Referred To Contact [facility] Diagnoses Esophageal dysphagia Procedures MANOMETRY ESOPHAGEAL ESOPHAGEAL MOTILITY STUDY W/INTERP&RPT Rosalio Couch MD [address] [place] [address] [facility] [place] [address] [place] [address] Referral ID Status Reason Start Date Expiration Date Visits Requested Visits Authorized [id number] Authorized Auto-Generat ed Referral 12/14/2022 12/15/2023 1 1 * Diagnostic Procedure Only (Routine) - Authorized Specialty Diagnoses / [facility] To Contact XR IMAGING Diagnoses Esophageal dysphagia Procedures XR ESOPHAGRAM RADIOLOGIC EXAM ESOPHAGUS SINGLE CONTRAST STUDY Rosalio Couch MD [address] [place] [address] Xr Imaging Referral ID Status Reason Start Date Expiration Date Visits Requested Visits Authorized [id number] Authorized Auto-Generat ed Referral 12/14/2022 01/13/2024 1 1 * Diagnostic Procedure Only (Routine) - Authorized Specialty Diagnoses / [facility]erred To Contact MOLECULAR & FUNCTIONAL IMAGING Diagnoses Nausea Procedures NM GASTRIC EMPTYING SOLID GASTRIC EMPTYING STUDY Rosalio Couch MD [address] [place] [address] Molecular & Functional Imaging [address] [place] [address] Referral ID Status Reason Start Date Expiration Date Visits Requested Visits Authorized [id number] Authorized Auto-Generat ed Referral 12/14/2022 01/13/2024 1 1 [facility] for referral (narrative)* Diagnostic Procedure Only (Routine) - Closed Specialty Diagnoses / Procedures [facility]erred To Contact MOLECULAR & FUNCTIONAL IMAGING Diagnoses Nausea Procedures NM GASTRIC EMPTYING SOLID GASTRIC EMPTYING STUDY Rosalio Couch MD [address] [place] [address] Molecular & Functional Imaging [address] [place] [address] Referral ID Status Reason Start Date Expiration Date V isits Requested Visits Authorized [id number] Closed Auto-Generate d Referral 12/14/2022 01/13/2024 1 1 [facility] for referral (narrative)* Diagnostic Procedure Only (Routine) - Closed Specialty Diagnoses / Procedures [facility] To Contact XR IMAGING Diagnoses Esophageal dysphagia Procedures XR ESOPHAGRAM RADIOLOGIC EXAM ESOPHAGUS SINGLE CONTRAST STUDY Rosalio Couch MD [address] [place] [address] Xr Imaging Referral ID Status Reason Start Date Expiration Date V isits Requested Visits Authorized [id number] Closed Auto-Generate d Referral 12/14/2022 01/13/2024 1 1 [facility] for referral (narrative)* Outpatient Procedure (Routine) - Authorized Specialty Diagnoses / Procedures [facility] To [facility] Diagnoses Gastroparesis due to secondary diabetes (HCC) Procedures EGD - THERAPEUTIC, EUS, OR TUBE INTERVENTIONS ESOPHAGOGASTRODUODENOSC OPY TRANSORAL DIAGNOSTIC STOMACH SURGERY PROCEDURE UNLISTED Ilya Huang MD [facility] [address] [place] [address] [place] [id number] Referral ID Status Reason Start Date Expiration Date Visits Requested Visits Authorized [id number] Authorized Auto-Generat ed Referral 01/30/2023 01/31/2024 1 1 [facility] for referral (narrative)* Outpatient Procedure (Routine) - Pending Review Specialty Diagnoses / Procedures Referred By Contac t Referred To Contact [facility] Diagnoses Precordial pain Procedures ECHO ECHO TTHRC R-T 2D W/WOM-MODE COMPL SPEC&COLR D Evan, [place] [address] [place] [address] [facility] [place] [phone] Referral ID Status Reason Start Date Expiration Date Visits Requested Visits Authorized [id number] Pending Review Auto-Generat ed Referral 03/12/2023 03/11/2024 1 1 * MRI/CT (Routine) - Pending Review Specialty Diagnoses / Procedures Referred By Bennett santos Referred To Contact CT IMAGING Diagnoses Encounter for screening for cardiovascular disorders Procedures CT CALCIUM SCORING SELF PAY ([place]) UNLISTED COMPUTED [place] [address] [place] [id number] [place] [address] Referral ID Status Reason Start Date Expiration Date Visits Requested Visits Authorized [id number] Pending Review Auto-Generat ed Referral 03/12/2023 04/10/2024 1 1 * Outpatient Procedure (Routine) - Closed Specialty Diagnoses / Procedures Referred By Bennett santos Referred To Contact [facility] Diagnoses Precordial pain Procedures ECG COMPLETE ECG ROUTINE ECG W/LEAST 12 LDS W/I&[place] [address] [place] [id number] [place] [address] Referral ID Status Reason Start Date Expiration Date V isits Requested Visits Authorized [id number] Closed Auto-Generate d Referral 03/12/2023 03/11/2024 1 1 [facility] for visit Narrative* Auth/Cert Specialty Diagnoses / Procedures Referred By Bennett santos Referred To Contact Diagnoses Bipolar affective disorder, current episode depressed, current episode severity unspecified (HCC) MDD (major depressive disorder), recurrent episode (HCC) MDD Referral ID Status Reason Start Date Expiration Date Visits Re quested Visits Authorized [id number] 1 1 [facility] Summary Purpose Family History No Family History Records Found Relationship Condition Age at Onset Recorded Date/T ermias Unknown Family History?Diabe ayan, Heart Disease Unknown February 25, 2016 4:32am Family History?Diabe ayan, Heart Disease Unknown October 26, 2018 11:30pm Family History?Heart Disease Unknown October 26, 2018 11:30pm Relationship Condition Age at Onset Recorded Date/T ermias Unknown Family History?Diabe ayan, Heart Disease Unknown February 25, 2016 3:32am Family History?Diabe ayan, Heart Disease Unknown October 26, 2018 10:30pm Family History?Heart Disease Unknown October 26, 2018 10:30pm Relationship Condition Age at Onset Recorded Date/T ermias Unknown Negative family history Unknown [facility] 2024 1:38am Relationship Condition Age at Onset Recorded Date/T ermias Unknown Negative family history Unknown [facility] 2024 2:38am Advance Directives No Advanced Directives Records FoundDocuments on File Type Date Recorded Patient Nnps Expl anation Advance Directive(s) Advance Directive(s) 07/17/2018 1:05 PM Documents on File Type Date Recorded Patient Nnps Expl anation Advance Directive(s) Advance Directive(s) 07/17/2018 1:05 PM Advance Directive Response Recorded Date/ Time Advance Directives No February 9:01am Living Will No September 20, 2021 4:26pm Power of Hcc Coders No September 20 4:26pm Latest Code Status on File Code Status Date Activated Date Inactivated Comments Full Code - Unverified 09/22/2021 7:01 AM 09/27/2021 5:30 PM Advance Directive Response Recorded Date/ Time Advance Directives No February 9:01am Living Will No December 12, 2021 11:03am Power of Hcc Coders No December 12 11:03am Advance Directive Response Recorded Date/ Time Advance Directives No February 8:01am Living Will No May 05, 2 023 9:32pm Power of Hcc Coders No May 05, 2023 9:32pm Reason for Referral Specialty Diagnoses / Procedures Referred By Bennett santos Referred To Contact Urology Diagnoses Right testicular pain Procedures CONSULT TO UROLOGY OFFICE/OUTPATIENT [facility] 60-74 MINUTES Edwin Arauz PA-C [address] [place] [address] Referral ID Status Reason Start Date Expiration Date Visits Requested Visits Authorized [id number] Authorized PCP Requested Referral 09/22/2021 09/15/2022 1 1 Specialty Diagnoses / Procedures Referred By Bennett santos Referred To Contact Diagnoses Bipolar affective disorder, current episode mixed, current episode severity unspecified (HCC) Abnormal movements Procedures CONSULT TO PSYCHIATRY OFFICE/OUTPATIENT [facility] MDM 60-74 MINUTES Britney Cervantes, MARGO[facility] [address] [place] [address] Referral ID Status Reason Start Date Expiration Date Visits Requested Visits Authorized [id number] Pending Review PCP Requested Referral 02/06/2022 02/06/2023 1 1 Specialty Diagnoses / Procedures Referred By Contac t Referred To Contact Diagnoses BERYL (obstructive sleep apnea) Procedures CONSULT TO SLEEP MEDICINE - ADULT OFFICE/OUTPATIENT [facility] 60-74 MINUTES Britney Cervantes, DIGITAL STRATEGIST.CHILD & ADOLESCENT PSYCHIATRIST [address] [place] [phone] Referral ID Status Reason Start Date Expiration Date Visits Requested Visits Authorized [id number] Authorized PCP Requested Referral 08/14/2022 08/14/2023 1 1 Specialty Diagnoses / Procedures Referred By Contac t Referred To Contact Diagnoses Bile acid esophageal reflux Bile salt-induced diarrhea Michelle Jane MD [address] [place] [phone] Referral ID Status Reason Start Date Expiration Date Visits Re quested Visits Authorized [id number] Closed 1 1 Specialty Diagnoses / Procedures Referred By Contac t Referred To Contact Gastroenterology Diagnoses Nausea and vomiting, unspecified vomiting type Belching Esophageal dysphagia Procedures CONSULT TO GASTROENTEROLOGY OFFICE/OUTPATIENT [facility] 60-74 MINUTES Amanda Gómez PA-C [address] [place] [phone] Referral ID Status Reason Start Date Expiration Date Visits Requested Visits Authorized [id number] Authorized PCP Requested Referral 12/05/2022 12/05/2023 1 1 Specialty Diagnoses / Procedures Referred By Contac t Referred To Contact Spine [place] Diagnoses Lumbar back pain Procedures CONSULT TO [facility] OFFICE/OUTPATIENT [facility] 60-74 MINUTES Britney Cervantes, DIGITAL STRATEGIST.CHILD & ADOLESCENT PSYCHIATRIST [address] [place] [address] Referral ID Status Reason Start Date Expiration Date Visits Requested Visits Authorized [id number] Pending Review PCP Requested Referral 02/12/2023 02/12/2024 1 1 Specialty Diagnoses / Procedures Referred By Contac t Referred To Contact Procedures HEARING TEST/AUDIOGRAM COMPRE AUDIOMETRY THRESHOLD JASAL Betty Zavala, AUD [address] [place] [address] [facility] [address] [place] [address] Referral ID Status Reason Start Date Expiration Date Visits Requested Visits Authorized [id number] Pending Review Auto-Generat ed Referral 08/22/2023 08/22/2024 1 1 Specialty Diagnoses / Procedures Referred By Contac t Referred To Contact Michelle Jane MD [address] [place] [address] Referral ID Status Reason Start Date Expiration Date Visits Re quested Visits Authorized [id number] Closed 1 1 Specialty Diagnoses / Procedures Referred By Contac t Referred To Contact Neurology Diagnoses Chronic intractable headache, unspecified headache type Procedures CONSULT TO NEUROLOGY OFFICE/OUTPATIENT [facility] 60 MINUTES Kaylee Vincent APRN.CNP [address] [place], [place] [phone] Referral ID Status Reason Start Date Expiration Date Visits Requested Visits Authorized [id number] Authorized PCP Requested Referral 11/11/2023 11/10/2024 1 1 Specialty Diagnoses / Procedures Referred By Contac t Referred To Contact General Surgery Diagnoses Lump of skin of back Procedures CONSULT TO GENERAL SURGERY OFFICE/OUTPATIENT [facility] 60 MINUTES Michelle Jane MD [address] [place], [place] [id number] Referral ID Status Reason Start Date Expiration Date V isits Requested Visits Authorized [id number] Closed PCP Requested Referral 12/04/2023 12/03/2024 1 1 Specialty Diagnoses / Procedures Referred By Contac t Referred To Contact [facility] Diagnoses Cervical spine pain Thoracolumbar back pain DDD (degenerative disc disease), thoracolumbar Procedures CONSULT TO PHYSICAL THERAPY PHYSICAL THERAPY EVALUATION HIGH COMPLEX 45 MINS Michelle Jane MD [address] [place] [address] [facility] [place] [address] [place] [address] Referral ID Status Reason Start Date Expiration Date Visits Requested Visits Authorized [id number] Pending Review Auto-Generat ed Referral 12/04/2023 12/03/2024 1 1 Specialty Diagnoses / Procedures Referred By Contac t Referred To Contact XR IMAGING Diagnoses Thoracolumbar back pain DDD (degenerative disc disease), thoracolumbar Procedures XR THORACIC GENERAL 3V AP/LAT/SWIMMERS RADEX SPINE THORACIC 3 VIEWS Michelle Jane MD [address] [place] [address] Xr Imaging [facility] Referral ID Status Reason Start Date Expiration Date Visits Requested Visits Authorized [id number] New Request Auto-Generat ed Referral 12/04/2023 01/02/2025 1 1 Specialty Diagnoses / Procedures Referred By Contac t Referred To Contact XR IMAGING Diagnoses Cervical spine pain Procedures XR CERV OTHER 4V AP/LAT/OBL RADEX SPINE CERVICAL 4 OR 5 VIEWS Michelle Jane MD [address] [place] [address] [place] [address] Referral ID Status Reason Start Date Expiration Date Visits Requested Visits Authorized [id number] New Request Auto-Generat ed Referral 12/04/2023 01/02/2025 1 1 Specialty Diagnoses / Procedures Referred By Contac t Referred To Contact Spine [place] Diagnoses Cervical spine pain Thoracolumbar back pain DDD (degenerative disc disease), thoracolumbar Procedures CONSULT TO [facility] OFFICE/OUTPATIENT [facility] MDM 60 MINUTES Michelle Jane MD [address] [place] [address] Referral ID Status Reason Start Date Expiration Date Visits Requested Visits Authorized [id number] Authorized PCP Requested Referral 12/04/2023 12/03/2024 1 1 Specialty Diagnoses / Procedures Referred By Contac t Referred To Contact MR IMAGING Diagnoses Chronic bilateral low back pain without sciatica Procedures MRI LUMBAR SPINE WO IVCON MRI SPINAL CANAL LUMBAR W/O CONTRAST MATERIAL Iain Nguyễn MD [address] [facility] [place] [address] [place] [address] Referral ID Status Reason Start Date Expiration Date Visits Requested Visits Authorized [id number] Pending Review Auto-Generat ed Referral 02/12/2024 03/13/2025 1 1 Chief Complaint and Reason for Visit Chief Complaint si Chief Complaint si chest pain, abd, n/v/d Chief Complaint L FOOT Chief Complaint CHEST PAIN Medications Administered Section Inactive Administered Medications - up to 3 most recent administrations Medication Order MAR Action Action Date Dose Rate Site PHENYLephrine 2.5 % 1 Drop (AK-DILATE, KANG-SYNEPHRINE) 1 Drop, BOTH EYES, ONCE, 1 dose, On Brenna 08/23/22 at 1400, FOR OPHTHALMIC USE ONLY PROTECT FROM LIGHT Given 08/23/2022 2:00 PM EST 1 Drop proparacaine 0.5 % 1 Drop (ALCAINE) 1 Drop, BOTH EYES, ONCE, 1 dose, On Brenna 08/23/22 at 1400, FOR THE EYE Given 08/23/2022 2:00 PM EST 1 Drop tropicamide 1 % 1 Drop (MYDRIACYL) 1 Drop, BOTH EYES, ONCE, 1 dose, On Brenna 08/23/22 at 1400, FOR THE EYE Given 08/23/2022 2:00 PM EST 1 Drop Additional Source Comments (unrecognized sect ion and content) No Status Records FoundNo Status Records FoundNo Status Records FoundNo Status Records FoundNo Status Records FoundNo Status Records FoundNo Status Records FoundNo Status Records Found INFORMATION SOURCE (unrecogn ized section and content) DATE CREATED AUTHOR 06/02/2018 [facility] DATE CREATED AUTHOR AUTHOR'S ORGANIZ ATION 09/28/2021 [facility] DATE CREATED AUTHOR AUTHOR'S ORGANIZ ATION 04/04/2022 [facility] DATE CREATED AUTHOR AUTHOR'S ORGANIZ ATION 03/02/2024 [facility] DATE CREATED AUTHOR AUTHOR'S ORGANIZ ATION 04/16/2024 [facility] DATE CREATED AUTHOR AUTHOR'S ORGANIZ ATION 09/08/2024 [facility] DATE CREATED AUTHOR AUTHOR'S ORGANIZ ATION 09/28/2024 [facility] DATE CREATED AUTHOR AUTHOR'S ORGANIZ ATION 05/05/2025 [facility] Source Comments (unrecognize d section and content) In the event this informatio n is protected by the Federal Confidentiality of Alcohol and Drug Abuse Patient Records regulations: The Federal rules restrict any use of the information to criminally investigate or prosecute any alcohol or drug abuse patient.[facility] the event this information is protected by the Federal Confidentiality of Alcohol and Drug Abuse Patient Records regulations: The Federal rules restrict any use of the information to criminally investigate or prosecute any alcohol or drug abuse patient.[facility] the event this information is protected by the Federal Confidentiality of Alcohol and Drug Abuse Patient Records regulations: The Federal rules restrict any use of the information to criminally investigate or prosecute any alcohol or drug abuse patient.[facility] the event this information is protected by the Federal Confidentiality of Alcohol and Drug Abuse Patient Records regulations: The Federal rules restrict any use of the information to criminally investigate or prosecute any alcohol or drug abuse patient.[facility] the event this information is protected by the Federal Confidentiality of Alcohol and Drug Abuse Patient Records regulations: The Federal rules restrict any use of the information to criminally investigate or prosecute any alcohol or drug abuse patient.[facility] the event this information is protected by the Federal Confidentiality of Alcohol and Drug Abuse Patient Records regulations: The Federal rules restrict any use of the information to criminally investigate or prosecute any alcohol or drug abuse patient.[facility] the event this information is protected by the Federal Confidentiality of Alcohol and Drug Abuse Patient Records regulations: The Federal rules restrict any use of the information to criminally investigate or prosecute any alcohol or drug abuse patient.[facility] the event this information is protected by the Federal Confidentiality of Alcohol and Drug Abuse Patient Records regulations: The Federal rules restrict any use of the information to criminally investigate or prosecute any alcohol or drug abuse patient.[facility] HospitalIn the event this information is protected by the Federal Confidentiality of Alcohol and Drug Abuse Patient Records regulations: The Federal rules restrict any use of the information to criminally investigate or prosecute any alcohol or drug abuse patient.[facility]In the event this information is protected by the Federal Confidentiality of Alcohol and Drug Abuse Patient Records regulations: The Federal rules restrict any use of the information to criminally investigate or prosecute any alcohol or drug abuse patient.[facility] HospitalIn the event this information is protected by the Federal Confidentiality of Alcohol and Drug Abuse Patient Records regulations: The Federal rules restrict any use of the information to criminally investigate or prosecute any alcohol or drug abuse patient.[facility] HospitalIn the event this information is protected by the Federal Confidentiality of Alcohol and Drug Abuse Patient Records regulations: The Federal rules restrict any use of the information to criminally investigate or prosecute any alcohol or drug abuse patient.[facility] HospitalIn the event this information is protected by the Federal Confidentiality of Alcohol and Drug Abuse Patient Records regulations: The Federal rules restrict any use of the information to criminally investigate or prosecute any alcohol or drug abuse patient.[facility] HospitalIn the event this information is protected by the Federal Confidentiality of Alcohol and Drug Abuse Patient Records regulations: The Federal rules restrict any use of the information to criminally investigate or prosecute any alcohol or drug abuse patient.[facility] HospitalIn the event this information is protected by the Federal Confidentiality of Alcohol and Drug Abuse Patient Records regulations: The Federal rules restrict any use of the information to criminally investigate or prosecute any alcohol or drug abuse patient.[facility] HospitalIn the event this information is protected by the Federal Confidentiality of Alcohol and Drug Abuse Patient Records regulations: The Federal rules restrict any use of the information to criminally investigate or prosecute any alcohol or drug abuse patient.[facility] HospitalIn the event this information is protected by the Federal Confidentiality of Alcohol and Drug Abuse Patient Records regulations: The Federal rules restrict any use of the information to criminally investigate or prosecute any alcohol or drug abuse patient.[facility] HospitalIn the event this information is protected by the Federal Confidentiality of Alcohol and Drug Abuse Patient Records regulations: The Federal rules restrict any use of the information to criminally investigate or prosecute any alcohol or drug abuse patient.[facility] HospitalIn the event this information is protected by the Federal Confidentiality of Alcohol and Drug Abuse Patient Records regulations: The Federal rules restrict any use of the information to criminally investigate or prosecute any alcohol or drug abuse patient.[facility] HospitalIn the event this information is protected by the Federal Confidentiality of Alcohol and Drug Abuse Patient Records regulations: The Federal rules restrict any use of the information to criminally investigate or prosecute any alcohol or drug abuse patient.[facility] the event this information is protected by the Federal Confidentiality of Alcohol and Drug Abuse Patient Records regulations: The Federal rules restrict any use of the information to criminally investigate or prosecute any alcohol or drug abuse patient.[facility] HospitalIn the event this information is protected by the Federal Confidentiality of Alcohol and Drug Abuse Patient Records regulations: The Federal rules restrict any use of the information to criminally investigate or prosecute any alcohol or drug abuse patient.[facility] HospitalIn the event this information is protected by the Federal Confidentiality of Alcohol and Drug Abuse Patient Records regulations: The Federal rules restrict any use of the information to criminally investigate or prosecute any alcohol or drug abuse patient.[facility] HospitalIn the event this information is protected by the Federal Confidentiality of Alcohol and Drug Abuse Patient Records regulations: The Federal rules restrict any use of the information to criminally investigate or prosecute any alcohol or drug abuse patient.[facility] HospitalIn the event this information is protected by the Federal Confidentiality of Alcohol and Drug Abuse Patient Records regulations: The Federal rules restrict any use of the information to criminally investigate or prosecute any alcohol or drug abuse patient.[facility] HospitalIn the event this information is protected by the Federal Confidentiality of Alcohol and Drug Abuse Patient Records regulations: The Federal rules restrict any use of the information to criminally investigate or prosecute any alcohol or drug abuse patient.[facility] HospitalIn the event this information is protected by the Federal Confidentiality of Alcohol and Drug Abuse Patient Records regulations: The Federal rules restrict any use of the information to criminally investigate or prosecute any alcohol or drug abuse patient.[facility] HospitalIn the event this information is protected by the Federal Confidentiality of Alcohol and Drug Abuse Patient Records regulations: The Federal rules restrict any use of the information to criminally investigate or prosecute any alcohol or drug abuse patient.[facility] HospitalIn the event this information is protected by the Federal Confidentiality of Alcohol and Drug Abuse Patient Records regulations: The Federal rules restrict any use of the information to criminally investigate or prosecute any alcohol or drug abuse patient.[facility] HospitalIn the event this information is protected by the Federal Confidentiality of Alcohol and Drug Abuse Patient Records regulations: The Federal rules restrict any use of the information to criminally investigate or prosecute any alcohol or drug abuse patient.[facility] HospitalIn the event this information is protected by the Federal Confidentiality of Alcohol and Drug Abuse Patient Records regulations: The Federal rules restrict any use of the information to criminally investigate or prosecute any alcohol or drug abuse patient.[facility] HospitalIn the event this information is protected by the Federal Confidentiality of Alcohol and Drug Abuse Patient Records regulations: The Federal rules restrict any use of the information to criminally investigate or prosecute any alcohol or drug abuse patient.[facility] HospitalIn the event this information is protected by the Federal Confidentiality of Alcohol and Drug Abuse Patient Records regulations: The Federal rules restrict any use of the information to criminally investigate or prosecute any alcohol or drug abuse patient.[facility] HospitalIn the event this information is protected by the Federal Confidentiality of Alcohol and Drug Abuse Patient Records regulations: The Federal rules restrict any use of the information to criminally investigate or prosecute any alcohol or drug abuse patient.[facility] HospitalIn the event this information is protected by the Federal Confidentiality of Alcohol and Drug Abuse Patient Records regulations: The Federal rules restrict any use of the information to criminally investigate or prosecute any alcohol or drug abuse patient.[facility] HospitalIn the event this information is protected by the Federal Confidentiality of Alcohol and Drug Abuse Patient Records regulations: The Federal rules restrict any use of the information to criminally investigate or prosecute any alcohol or drug abuse patient.[facility] HospitalIn the event this information is protected by the Federal Confidentiality of Alcohol and Drug Abuse Patient Records regulations: The Federal rules restrict any use of the information to criminally investigate or prosecute any alcohol or drug abuse patient.[facility] HospitalIn the event this information is protected by the Federal Confidentiality of Alcohol and Drug Abuse Patient Records regulations: The Federal rules restrict any use of the information to criminally investigate or prosecute any alcohol or drug abuse patient.[facility] HospitalIn the event this information is protected by the Federal Confidentiality of Alcohol and Drug Abuse Patient Records regulations: The Federal rules restrict any use of the information to criminally investigate or prosecute any alcohol or drug abuse patient.[facility] HospitalIn the event this information is protected by the Federal Confidentiality of Alcohol and Drug Abuse Patient Records regulations: The Federal rules restrict any use of the information to criminally investigate or prosecute any alcohol or drug abuse patient.[facility] HospitalIn the event this information is protected by the Federal Confidentiality of Alcohol and Drug Abuse Patient Records regulations: The Federal rules restrict any use of the information to criminally investigate or prosecute any alcohol or drug abuse patient.[facility] HospitalIn the event this information is protected by the Federal Confidentiality of Alcohol and Drug Abuse Patient Records regulations: The Federal rules restrict any use of the information to criminally investigate or prosecute any alcohol or drug abuse patient.[facility] HospitalIn the event this information is protected by the Federal Confidentiality of Alcohol and Drug Abuse Patient Records regulations: The Federal rules restrict any use of the information to criminally investigate or prosecute any alcohol or drug abuse patient.[facility] HospitalIn the event this information is protected by the Federal Confidentiality of Alcohol and Drug Abuse Patient Records regulations: The Federal rules restrict any use of the information to criminally investigate or prosecute any alcohol or drug abuse patient.[facility] HospitalIn the event this information is protected by the Federal Confidentiality of Alcohol and Drug Abuse Patient Records regulations: The Federal rules restrict any use of the information to criminally investigate or prosecute any alcohol or drug abuse patient.[facility] HospitalIn the event this information is protected by the Federal Confidentiality of Alcohol and Drug Abuse Patient Records regulations: The Federal rules restrict any use of the information to criminally investigate or prosecute any alcohol or drug abuse patient.[facility] HospitalIn the event this information is protected by the Federal Confidentiality of Alcohol and Drug Abuse Patient Records regulations: The Federal rules restrict any use of the information to criminally investigate or prosecute any alcohol or drug abuse patient.[facility] HospitalIn the event this information is protected by the Federal Confidentiality of Alcohol and Drug Abuse Patient Records regulations: The Federal rules restrict any use of the information to criminally investigate or prosecute any alcohol or drug abuse patient.[facility] HospitalIn the event this information is protected by the Federal Confidentiality of Alcohol and Drug Abuse Patient Records regulations: The Federal rules restrict any use of the information to criminally investigate or prosecute any alcohol or drug abuse patient.[facility] HospitalIn the event this information is protected by the Federal Confidentiality of Alcohol and Drug Abuse Patient Records regulations: The Federal rules restrict any use of the information to criminally investigate or prosecute any alcohol or drug abuse patient.[facility] HospitalIn the event this information is protected by the Federal Confidentiality of Alcohol and Drug Abuse Patient Records regulations: The Federal rules restrict any use of the information to criminally investigate or prosecute any alcohol or drug abuse patient.[facility] HospitalIn the event this information is protected by the Federal Confidentiality of Alcohol and Drug Abuse Patient Records regulations: The Federal rules restrict any use of the information to criminally investigate or prosecute any alcohol or drug abuse patient.[facility] HospitalIn the event this information is protected by the Federal Confidentiality of Alcohol and Drug Abuse Patient Records regulations: The Federal rules restrict any use of the information to criminally investigate or prosecute any alcohol or drug abuse patient.[facility] HospitalIn the event this information is protected by the Federal Confidentiality of Alcohol and Drug Abuse Patient Records regulations: The Federal rules restrict any use of the information to criminally investigate or prosecute any alcohol or drug abuse patient.[facility] HospitalIn the event this information is protected by the Federal Confidentiality of Alcohol and Drug Abuse Patient Records regulations: The Federal rules restrict any use of the information to criminally investigate or prosecute any alcohol or drug abuse patient.[facility] HospitalIn the event this information is protected by the Federal Confidentiality of Alcohol and Drug Abuse Patient Records regulations: The Federal rules restrict any use of the information to criminally investigate or prosecute any alcohol or drug abuse patient.[facility] HospitalIn the event this information is protected by the Federal Confidentiality of Alcohol and Drug Abuse Patient Records regulations: The Federal rules restrict any use of the information to criminally investigate or prosecute any alcohol or drug abuse patient.[facility] HospitalIn the event this information is protected by the Federal Confidentiality of Alcohol and Drug Abuse Patient Records regulations: The Federal rules restrict any use of the information to criminally investigate or prosecute any alcohol or drug abuse patient.[facility] HospitalIn the event this information is protected by the Federal Confidentiality of Alcohol and Drug Abuse Patient Records regulations: The Federal rules restrict any use of the information to criminally investigate or prosecute any alcohol or drug abuse patient.[facility] HospitalIn the event this information is protected by the Federal Confidentiality of Alcohol and Drug Abuse Patient Records regulations: The Federal rules restrict any use of the information to criminally investigate or prosecute any alcohol or drug abuse patient.[facility] HospitalIn the event this information is protected by the Federal Confidentiality of Alcohol and Drug Abuse Patient Records regulations: The Federal rules restrict any use of the information to criminally investigate or prosecute any alcohol or drug abuse patient.[facility] HospitalIn the event this information is protected by the Federal Confidentiality of Alcohol and Drug Abuse Patient Records regulations: The Federal rules restrict any use of the information to criminally investigate or prosecute any alcohol or drug abuse patient.[facility] HospitalIn the event this information is protected by the Federal Confidentiality of Alcohol and Drug Abuse Patient Records regulations: The Federal rules restrict any use of the information to criminally investigate or prosecute any alcohol or drug abuse patient.[facility] HospitalIn the event this information is protected by the Federal Confidentiality of Alcohol and Drug Abuse Patient Records regulations: The Federal rules restrict any use of the information to criminally investigate or prosecute any alcohol or drug abuse patient.[facility] HospitalIn the event this information is protected by the Federal Confidentiality of Alcohol and Drug Abuse Patient Records regulations: The Federal rules restrict any use of the information to criminally investigate or prosecute any alcohol or drug abuse patient.[facility] HospitalIn the event this information is protected by the Federal Confidentiality of Alcohol and Drug Abuse Patient Records regulations: The Federal rules restrict any use of the information to criminally investigate or prosecute any alcohol or drug abuse patient.[facility] HospitalIn the event this information is protected by the Federal Confidentiality of Alcohol and Drug Abuse Patient Records regulations: The Federal rules restrict any use of the information to criminally investigate or prosecute any alcohol or drug abuse patient.[facility] HospitalIn the event this information is protected by the Federal Confidentiality of Alcohol and Drug Abuse Patient Records regulations: The Federal rules restrict any use of the information to criminally investigate or prosecute any alcohol or drug abuse patient.[facility] HospitalIn the event this information is protected by the Federal Confidentiality of Alcohol and Drug Abuse Patient Records regulations: The Federal rules restrict any use of the information to criminally investigate or prosecute any alcohol or drug abuse patient.[facility] HospitalIn the event this information is protected by the Federal Confidentiality of Alcohol and Drug Abuse Patient Records regulations: The Federal rules restrict any use of the information to criminally investigate or prosecute any alcohol or drug abuse patient.[facility] the event this information is protected by the Federal Confidentiality of Alcohol and Drug Abuse Patient Records regulations: The Federal rules restrict any use of the information to criminally investigate or prosecute any alcohol or drug abuse patient.[facility] HospitalIn the event this information is protected by the Federal Confidentiality of Alcohol and Drug Abuse Patient Records regulations: The Federal rules restrict any use of the information to criminally investigate or prosecute any alcohol or drug abuse patient.[facility] HospitalIn the event this information is protected by the Federal Confidentiality of Alcohol and Drug Abuse Patient Records regulations: The Federal rules restrict any use of the information to criminally investigate or prosecute any alcohol or drug abuse patient.[facility] HospitalIn the event this information is protected by the Federal Confidentiality of Alcohol and Drug Abuse Patient Records regulations: The Federal rules restrict any use of the information to criminally investigate or prosecute any alcohol or drug abuse patient.[facility] HospitalIn the event this information is protected by the Federal Confidentiality of Alcohol and Drug Abuse Patient Records regulations: The Federal rules restrict any use of the information to criminally investigate or prosecute any alcohol or drug abuse patient.[facility] HospitalIn the event this information is protected by the Federal Confidentiality of Alcohol and Drug Abuse Patient Records regulations: The Federal rules restrict any use of the information to criminally investigate or prosecute any alcohol or drug abuse patient.[facility] HospitalIn the event this information is protected by the Federal Confidentiality of Alcohol and Drug Abuse Patient Records regulations: The Federal rules restrict any use of the information to criminally investigate or prosecute any alcohol or drug abuse patient.[facility] HospitalIn the event this information is protected by the Federal Confidentiality of Alcohol and Drug Abuse Patient Records regulations: The Federal rules restrict any use of the information to criminally investigate or prosecute any alcohol or drug abuse patient.[facility] HospitalIn the event this information is protected by the Federal Confidentiality of Alcohol and Drug Abuse Patient Records regulations: The Federal rules restrict any use of the information to criminally investigate or prosecute any alcohol or drug abuse patient.[facility] HospitalIn the event this information is protected by the Federal Confidentiality of Alcohol and Drug Abuse Patient Records regulations: The Federal rules restrict any use of the information to criminally investigate or prosecute any alcohol or drug abuse patient.[facility] HospitalIn the event this information is protected by the Federal Confidentiality of Alcohol and Drug Abuse Patient Records regulations: The Federal rules restrict any use of the information to criminally investigate or prosecute any alcohol or drug abuse patient.[facility] HospitalIn the event this information is protected by the Federal Confidentiality of Alcohol and Drug Abuse Patient Records regulations: The Federal rules restrict any use of the information to criminally investigate or prosecute any alcohol or drug abuse patient.[facility] HospitalIn the event this information is protected by the Federal Confidentiality of Alcohol and Drug Abuse Patient Records regulations: The Federal rules restrict any use of the information to criminally investigate or prosecute any alcohol or drug abuse patient.[facility] HospitalIn the event this information is protected by the Federal Confidentiality of Alcohol and Drug Abuse Patient Records regulations: The Federal rules restrict any use of the information to criminally investigate or prosecute any alcohol or drug abuse patient.[facility] HospitalIn the event this information is protected by the Federal Confidentiality of Alcohol and Drug Abuse Patient Records regulations: The Federal rules restrict any use of the information to criminally investigate or prosecute any alcohol or drug abuse patient.[facility] HospitalIn the event this information is protected by the Federal Confidentiality of Alcohol and Drug Abuse Patient Records regulations: The Federal rules restrict any use of the information to criminally investigate or prosecute any alcohol or drug abuse patient.[facility] HospitalIn the event this information is protected by the Federal Confidentiality of Alcohol and Drug Abuse Patient Records regulations: The Federal rules restrict any use of the information to criminally investigate or prosecute any alcohol or drug abuse patient.[facility] HospitalIn the event this information is protected by the Federal Confidentiality of Alcohol and Drug Abuse Patient Records regulations: The Federal rules restrict any use of the information to criminally investigate or prosecute any alcohol or drug abuse patient.[facility] HospitalIn the event this information is protected by the Federal Confidentiality of Alcohol and Drug Abuse Patient Records regulations: The Federal rules restrict any use of the information to criminally investigate or prosecute any alcohol or drug abuse patient.[facility] HospitalIn the event this information is protected by the Federal Confidentiality of Alcohol and Drug Abuse Patient Records regulations: The Federal rules restrict any use of the information to criminally investigate or prosecute any alcohol or drug abuse patient.[facility] HospitalIn the event this information is protected by the Federal Confidentiality of Alcohol and Drug Abuse Patient Records regulations: The Federal rules restrict any use of the information to criminally investigate or prosecute any alcohol or drug abuse patient.[facility] HospitalIn the event this information is protected by the Federal Confidentiality of Alcohol and Drug Abuse Patient Records regulations: The Federal rules restrict any use of the information to criminally investigate or prosecute any alcohol or drug abuse patient.[facility] HospitalIn the event this information is protected by the Federal Confidentiality of Alcohol and Drug Abuse Patient Records regulations: The Federal rules restrict any use of the information to criminally investigate or prosecute any alcohol or drug abuse patient.[facility] HospitalIn the event this information is protected by the Federal Confidentiality of Alcohol and Drug Abuse Patient Records regulations: The Federal rules restrict any use of the information to criminally investigate or prosecute any alcohol or drug abuse patient.[facility] HospitalIn the event this information is protected by the Federal Confidentiality of Alcohol and Drug Abuse Patient Records regulations: The Federal rules restrict any use of the information to criminally investigate or prosecute any alcohol or drug abuse patient.[facility] HospitalIn the event this information is protected by the Federal Confidentiality of Alcohol and Drug Abuse Patient Records regulations: The Federal rules restrict any use of the information to criminally investigate or prosecute any alcohol or drug abuse patient.[facility] HospitalIn the event this information is protected by the Federal Confidentiality of Alcohol and Drug Abuse Patient Records regulations: The Federal rules restrict any use of the information to criminally investigate or prosecute any alcohol or drug abuse patient.[facility] HospitalIn the event this information is protected by the Federal Confidentiality of Alcohol and Drug Abuse Patient Records regulations: The Federal rules restrict any use of the information to criminally investigate or prosecute any alcohol or drug abuse patient.[facility] HospitalIn the event this information is protected by the Federal Confidentiality of Alcohol and Drug Abuse Patient Records regulations: The Federal rules restrict any use of the information to criminally investigate or prosecute any alcohol or drug abuse patient.[facility] HospitalIn the event this information is protected by the Federal Confidentiality of Alcohol and Drug Abuse Patient Records regulations: The Federal rules restrict any use of the information to criminally investigate or prosecute any alcohol or drug abuse patient.[facility] HospitalIn the event this information is protected by the Federal Confidentiality of Alcohol and Drug Abuse Patient Records regulations: The Federal rules restrict any use of the information to criminally investigate or prosecute any alcohol or drug abuse patient.[facility] HospitalIn the event this information is protected by the Federal Confidentiality of Alcohol and Drug Abuse Patient Records regulations: The Federal rules restrict any use of the information to criminally investigate or prosecute any alcohol or drug abuse patient.[facility] HospitalIn the event this information is protected by the Federal Confidentiality of Alcohol and Drug Abuse Patient Records regulations: The Federal rules restrict any use of the information to criminally investigate or prosecute any alcohol or drug abuse patient.[facility] HospitalIn the event this information is protected by the Federal Confidentiality of Alcohol and Drug Abuse Patient Records regulations: The Federal rules restrict any use of the information to criminally investigate or prosecute any alcohol or drug abuse patient.[facility] HospitalIn the event this information is protected by the Federal Confidentiality of Alcohol and Drug Abuse Patient Records regulations: The Federal rules restrict any use of the information to criminally investigate or prosecute any alcohol or drug abuse patient.[facility] HospitalIn the event this information is protected by the Federal Confidentiality of Alcohol and Drug Abuse Patient Records regulations: The Federal rules restrict any use of the information to criminally investigate or prosecute any alcohol or drug abuse patient.[facility] HospitalIn the event this information is protected by the Federal Confidentiality of Alcohol and Drug Abuse Patient Records regulations: The Federal rules restrict any use of the information to criminally investigate or prosecute any alcohol or drug abuse patient.[facility] HospitalIn the event this information is protected by the Federal Confidentiality of Alcohol and Drug Abuse Patient Records regulations: The Federal rules restrict any use of the information to criminally investigate or prosecute any alcohol or drug abuse patient.[facility] HospitalIn the event this information is protected by the Federal Confidentiality of Alcohol and Drug Abuse Patient Records regulations: The Federal rules restrict any use of the information to criminally investigate or prosecute any alcohol or drug abuse patient.[facility] HospitalIn the event this information is protected by the Federal Confidentiality of Alcohol and Drug Abuse Patient Records regulations: The Federal rules restrict any use of the information to criminally investigate or prosecute any alcohol or drug abuse patient.[facility] HospitalIn the event this information is protected by the Federal Confidentiality of Alcohol and Drug Abuse Patient Records regulations: The Federal rules restrict any use of the information to criminally investigate or prosecute any alcohol or drug abuse patient.[facility] HospitalIn the event this information is protected by the Federal Confidentiality of Alcohol and Drug Abuse Patient Records regulations: The Federal rules restrict any use of the information to criminally investigate or prosecute any alcohol or drug abuse patient.[facility] HospitalIn the event this information is protected by the Federal Confidentiality of Alcohol and Drug Abuse Patient Records regulations: The Federal rules restrict any use of the information to criminally investigate or prosecute any alcohol or drug abuse patient.[facility] HospitalIn the event this information is protected by the Federal Confidentiality of Alcohol and Drug Abuse Patient Records regulations: The Federal rules restrict any use of the information to criminally investigate or prosecute any alcohol or drug abuse patient.[facility] HospitalIn the event this information is protected by the Federal Confidentiality of Alcohol and Drug Abuse Patient Records regulations: The Federal rules restrict any use of the information to criminally investigate or prosecute any alcohol or drug abuse patient.[facility] HospitalIn the event this information is protected by the Federal Confidentiality of Alcohol and Drug Abuse Patient Records regulations: The Federal rules restrict any use of the information to criminally investigate or prosecute any alcohol or drug abuse patient.[facility] Reason for Visit (unrecogniz ed section and content) Reason Comments PT Discharge Specialty Diagnoses / Procedures Referred By Contac t Referred To Contact Internal Medicine / INTERNAL MEDICINE Diagnoses 3 month follow up Procedures 4C EST Self Kaylee Vincent APRN.POLYSOMNOGRAPHY TECHNICIAN [address] [id number] Referral ID Status Reason Start Date Expiration Date Visits Requested Visits Authorized [id number] Authorized Financial Clearance Required - Self Pay Patient Cleared - Qualified HCAP/501/FA 11/28/2023 02/26/2024 99 99 Reason Comments ED Follow-up [facility] ED back pain Specialty Diagnoses / Procedures Referred By Contac t Referred To Contact Internal Medicine / INTERNAL MEDICINE Diagnoses 3 month follow up Procedures 4C EST Self Kaylee Vincent APRN.POLYSOMNOGRAPHY TECHNICIAN [address] [place] [address] Reason Comments Appointment Reason Comments Follow Up Specialty Diagnoses / Procedures Referred By Contac t Referred To Contact Urology / UROLOGY Diagnoses Right testicular pain Procedures CONSULT TO UROLOGY OFFICE/OUTPATIENT [facility] MDM 60-74 MINUTES Britney Cervantes, DIGITAL STRATEGIST.[facility] [address] [place] [address] Urol [facility] [address] [place] [address] Referral ID Status Reason Start Date Expiration Date V isits Requested Visits Authorized [id number] Closed PCP Requested Referral 08/29/2021 08/29/2022 1 1 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 Reason Comments Rx clarification Reason Comments Refill Request Reason Comments F/U 6 Month Reason Comments Elevated BP Reason Comments [facility] follow up Blood pressure Reason Comments Established Patient Follow Up Pain Callous Diabetic Foot Care Reason Comments Primary Care Pharmacy Reason Comments F/U 3 Month Reason Comments Results Reason Comments Diabetes Reason Comments Patient Update Reason Comments Diabetic Eye Exam Reason Onset Date Comments Refill Request 08/28/2022 Reason Comments Patient Question Reason Comments Nurse Triage Call Reason Comments Missed Appointment Reason Comments Medication Question Reason Comments urine problem/patient update Reason Comments Consult Pressure in stomach, for last 3 weeks, gas, belching, when swallowing, feels like lump in esophagus. Specialty Diagnoses / Procedures Referred By Contac t Referred To Contact General Surgery Diagnoses Bile acid esophageal reflux Procedures CONSULT TO GENERAL SURGERY OFFICE/OUTPATIENT [facility] 60-74 MINUTES Kaylee Vincent APRN.POLYSOMNOGRAPHY TECHNICIAN [address] [place] [address] Referral ID Status Reason Start Date Expiration Date V isits Requested Visits Authorized [id number] Closed PCP Requested Referral 11/14/2022 11/14/2023 1 1 Reason Comments Follow Up EGD and colonoscopy results Reason Comments New Patient Specialty Diagnoses / Procedures Referred By Contac t Referred To Contact Gastroenterology Diagnoses Nausea and vomiting, unspecified vomiting type Belching Esophageal dysphagia Procedures CONSULT TO GASTROENTEROLOGY OFFICE/OUTPATIENT [facility] 60-74 MINUTES Amanda Gómez PA-C [address] [place] [address] Referral ID Status Reason Start Date Expiration Date V isits Requested Visits Authorized [id number] Closed PCP Requested Referral 12/05/2022 12/05/2023 1 1 Reason Onset Date Comments Refill Request 12/20/2022 Reason Onset Date Comments Pharmacy Patient Assistance Program 11/26/2022 Ozempic/Novolog/Tresiba Reason Comments Radiology NM Specialty Diagnoses / Procedures Referred By Contac t Referred To Contact MOLECULAR & FUNCTIONAL IMAGING Diagnoses Nausea Procedures NM GASTRIC EMPTYING SOLID GASTRIC EMPTYING STUDY Rosalio Couch MD [address] [place] [address] Molecular & Functional Imaging [address] [place] [address] Referral ID Status Reason Start Date Expiration Date V isits Requested Visits Authorized [id number] Closed Auto-Generate d Referral 12/14/2022 01/13/2024 1 1 Specialty Diagnoses / Procedures Referred By Contac t Referred To Contact [facility] Department Diagnoses n/a Procedures [facility] Referral ID Status Reason Start Date Expiration Date Visits Requested Visits Authorized [id number] Authorized Financial Clearance Required - Self Pay Patient Cleared - Qualified HCAP/501/FA 01/02/2023 04/02/2023 99 99 Reason Comments Radio GI Main HB6 Specialty Diagnoses / Procedures Referred By Contac t Referred To Contact XR IMAGING Diagnoses Esophageal dysphagia Procedures XR ESOPHAGRAM RADIOLOGIC EXAM ESOPHAGUS SINGLE CONTRAST STUDY Rosalio Couch MD [address] [place] [address] Xr Imaging Referral ID Status Reason Start Date Expiration Date V isits Requested Visits Authorized [id number] Closed Auto-Generate d Referral 12/14/2022 01/13/2024 1 1 Reason Comments New Patient GP consult Reason Onset Date Comments Refill Request 02/01/2023 Reason Comments Preparations For Surgery Reason Comments Appointment No show Reason Comments Anesthesia Consult Specialty Diagnoses / Procedures Referred By Contac t Referred To Contact [facility] DEPARTMENT Diagnoses n/a Procedures all appointments Self [facility] [address] Reason Comments Missed Appointment Pharmacist Visit Res chedule Reason Onset Date Comments Refill Request 08/09/2023 Reason Comments had audio today Hearing Loss Noticed by Specialty Diagnoses / Procedures Referred By Contac t Referred To Contact Ent - Otolaryngology Diagnoses Bilateral hearing loss, unspecified hearing loss type Procedures CONSULT TO ENT OFFICE/OUTPATIENT [facility] 60 MINUTES Kaylee Vincent APRN.POLYSOMNOGRAPHY TECHNICIAN [address] [place] [address] Referral ID Status Reason Start Date Expiration Date V isits Requested Visits Authorized [id number] Closed PCP Requested Referral 06/26/2023 06/25/2024 1 1 Reason Comments Hearing Test Specialty Diagnoses / Procedures Referred By Contac t Referred To Contact Ent - Otolaryngology Diagnoses Bilateral hearing loss, unspecified hearing loss type Procedures CONSULT TO ENT OFFICE/OUTPATIENT [facility] 60 MINUTES Kaylee Vincent APRN.POLYSOMNOGRAPHY TECHNICIAN [address] [place] [address] Reason Comments Insurance Authorization Ozempic Reason Onset Date Comments Refill Request 11/09/2023 Reason Comments Erectile Dysfunction Reason Comments Consult Lump on back. Specialty Diagnoses / Procedures Referred By Contac t Referred To Contact General Surgery Diagnoses Lump of skin of back Procedures CONSULT TO GENERAL SURGERY OFFICE/OUTPATIENT [facility] MDM 60 MINUTES Michelle Jane MD [address] [place] [address] Referral ID Status Reason Start Date Expiration Date V isits Requested Visits Authorized [id number] Closed PCP Requested Referral 12/04/2023 12/03/2024 1 1 Reason Onset Date Comments Refill Request 12/21/2023 Reason Comments Opened In Error Reason Comments PT Eval Specialty Diagnoses / Procedures Referred By Contac t Referred To Contact [facility] Diagnoses Cervical spine pain Thoracolumbar back pain DDD (degenerative disc disease), thoracolumbar Procedures CONSULT TO PHYSICAL THERAPY PHYSICAL THERAPY EVALUATION [facility] 45 MINS Michelle Jane MD [address] [place] [address] [facility] [place] [address] [place] [address] Referral ID Status Reason Start Date Expiration Date Visits Requested Visits Authorized [id number] Pending Review Auto-Generat ed Referral 12/04/2023 12/03/2024 1 1 Reason Comments Physical Therapy Specialty Diagnoses / Procedures Referred By Contac t Referred To Contact [facility] Diagnoses Chronic bilateral low back pain without sciatica [M54.50, G89.29] Procedures MRI WO VANNESSA B [address] ALL Iain Nguyễn MD [address] [facility] [place] [address] Radio [facility] [address] [place] [address] Referral ID Status Reason Start Date Expiration Date Visits Requested Visits Authorized [id number] Pending Review Patient Cleared - Qualified 100% FAS Financial Clearance Required - Self Pay Clearance Not Met - Admin/Chairma n/Director Advise to Postpone/Resc hedule or Not Proceed 02/27/2024 05/27/2024 99 99 Reason Comments Results Lumbar MRI Reason Comments Missed Appointment Pharmacist Visit Res cheduling Reason Comments Appointment Pharmacist Reason Onset Date Comments Refill Request 03/28/2024 Reason Onset Date Comments Refill Request 03/29/2024 Reason Onset Date Comments Refill Request 04/08/2024 Reason Onset Date Comments Refill Request 04/21/2024 Reason Onset Date Comments Refill Request 07/14/2024 Reason Comments Dizziness lightheadedness, anx ious, aggravated, dizziness x 6 weeks Reason Comments Diabetes Specialty Diagnoses / Procedures Referred By Contkassidy t Referred To Contact Neurology Diagnoses Chronic intractable headache, unspecified headache type Procedures CONSULT TO NEUROLOGY OFFICE/OUTPATIENT [facility] 60 MINUTES Kaylee Vincent APRN.POLYSOMNOGRAPHY TECHNICIAN [address] [place] [address] Phone: tel: fax: Referral ID Status Reason Start Date Expiration Date V isits Requested Visits Authorized [id number] Closed PCP Requested Referral 11/11/2023 11/10/2024 1 1 Reason Onset Date Comments Refill Request 08/12/2024 Reason Comments bh consult Reason Comments Recheck Reason Comments Patient Question Mealtime insulin Reason Onset Date Comments Refill Request 09/11/2024 Reason Comments Missed Appointment Primary care resched ule Care Teams (unrecognized sec tion and content) Manhole Stripper Relationship Specialty Start Date End Date Michelle Jane MD [address] [place] [address] PCP - General Internal Medicine 03/25/12 [facility] [address] [place] [address] Pharmacist Pharmacy 09/25/18 Manhole Stripper Relationship Specialty Start Date End Date Michelle Jane MD [address] [place] [address] PCP - General Internal Medicine 03/25/12 [facility] [address] [place] [address] Pharmacist Pharmacy 09/25/18 Manhole Stripper Relationship Specialty Start Date End Date Michelle Jane MD [address] [place] [address] PCP - General Internal Medicine 03/25/12 McintoshKye, [facility] [address] [facility] [place] [address] Pharmacist Pharmacy 09/25/18 Manhole Stripper Relationship Specialty Start Date End Date Michelle Jane MD [address] [facility] [place] [address] PCP - General Internal Medicine 03/25/12 McintoshMadelinKye, [facility] [address] [facility] [place] [address] Pharmacist Pharmacy 09/25/18 Manhole Stripper Relationship Specialty Start Date End Date Michelle Jane MD [address] [facility] [place] [address] PCP - General Internal Medicine 03/25/12 Mcintosh Kye, [facility] [address] [facility] [place] [address] Pharmacist Pharmacy 09/25/18 Manhole Stripper Relationship Specialty Start Date End Date Michelle Jane MD [address] [facility] [place] [address] PCP - General Internal Medicine 03/25/12 McintoshMadelinKye, Formerly [facility] [address] [facility] [place] [address] Pharmacist Pharmacy 09/25/18 Manhole Stripper Relationship Specialty Start Date End Date Michelle Jane MD [address] [facility] [place] [address] PCP - General Internal Medicine 03/25/12 Mcintosh Kye, [facility] [address] [facility] [place] [address] Pharmacist Pharmacy 09/25/18 Manhole Stripper Relationship Specialty Start Date End Date Michelle Jane MD [address] [facility] [place] [address] PCP - General Internal Medicine 03/25/12 Kye Meade [facility] [address] [facility] [place] [address] Pharmacist Pharmacy 09/25/18 Manhole Stripper Relationship Specialty Start Date End Date Michelle Jane MD [address] [place] [address] PCP - General Internal Medicine 03/25/12 Manhole Stripper Relationship Specialty [place] [address] [place] [address] PCP - General Internal Medicine 03/25/12 Manhole Stripper Relationship Specialty Start Date End Date Michelle Jane MD [address] [place] [address] PCP - General Internal Medicine 03/25/12 Manhole Stripper Relationship Specialty Start Date End Date Michelle Jane MD [address] [place] [address] PCP - General Internal Medicine 03/25/12 Manhole Stripper Relationship Specialty Start Date End Date Michelle Jane MD [address] [facility] [place] [address] PCP - General Internal Medicine 03/25/12 Manhole Stripper Relationship Specialty Start Date End Date Michelle Jane MD [address] [facility] [place] [address] PCP - General Internal Medicine 03/25/12 Manhole Stripper Relationship Specialty Start Date End Date Michelle Jane MD [address] [place] [address] [place] [address] PCP - General Internal Medicine 03/25/12 Manhole Stripper Relationship Specialty Start Date End Date Michelle Jane MD [address] [facility] [place] [address] PCP - General Internal Medicine 03/25/12 Manhole Stripper Relationship Specialty Start Date End Date Michelle Jane MD [address] [place] [address] PCP - General Internal Medicine 03/25/12 Manhole Stripper Relationship Specialty Start Date End Date Michelle Jane MD [address] [place] [address] PCP - General Internal Medicine 03/25/12 Manhole Stripper Relationship Specialty Start Date End Date Michelle Jane MD [address] [place] [address] PCP - General Internal Medicine 03/25/12 Manhole Stripper Relationship Specialty Start Date End Date Michelle Jane MD [facility] [place] [address] PCP - General Internal Medicine 03/25/12 [address] [place] [address] Pharmacist Pharmacy 09/11/22 Manhole Stripper Relationship Specialty Start Date End Date Michelle Jane MD [address] [place] [address] PCP - General Internal Medicine 03/25/12 [address] [place] [address] Pharmacist Pharmacy 09/11/22 Manhole Stripper Relationship Specialty Start Date End Date Michelle Jane MD [address] [place] [address] PCP - General Internal Medicine 03/25/12 [address] [place] [address] Pharmacist Pharmacy 09/11/22 Manhole Stripper Relationship Specialty Start Date End Date Michelle Jane MD [address] [place] [address] PCP - General Internal Medicine 03/25/12 [address] [place] [address] Pharmacist Pharmacy 09/11/22 Manhole Stripper Relationship Specialty Start Date End Date Michelle Jane MD [address] [place] [address] PCP - General Internal Medicine 03/25/12 [address] [place] [address] Pharmacist Pharmacy 09/11/22 Manhole Stripper Relationship Specialty Start Date End Date Michelle Jane MD [address] [place] [address] PCP - General Internal Medicine 03/25/12 Deshaun, [address] [place] [address] Pharmacist Pharmacy 09/11/22 Manhole Stripper Relationship Specialty Start Date End Date Michelle Jane MD [address] [place] [address] PCP - General Internal Medicine 03/25/12 [address]int[address] [place] [address] Pharmacist Pharmacy 09/11/22 Manhole Stripper Relationship Specialty Start Date End Date Michelle Jane MD [address] [place] [address] PCP - General Internal Medicine 03/25/12 [address] [place] [address] Pharmacist Pharmacy 09/11/22 Manhole Stripper Relationship Specialty Start Date End Date Michelle Jane MD [address] [place] [address] PCP - General Internal Medicine 03/25/12 Mcintosh, [address] [place] [address] Pharmacist Pharmacy 09/11/22 Manhole Stripper Relationship Specialty Start Date End Date Michelle Jane MD [address] [place] [address] PCP - General Internal Medicine 03/25/12 Mcintosh, [address] [place] [address] Pharmacist Pharmacy 09/11/22 Manhole Stripper Relationship Specialty Start Date End Date Michelle Jane MD [address] [place] [address] PCP - General Internal Medicine 03/25/12 Mcintosh, [address] [place] [address] Pharmacist Pharmacy 09/11/22 Manhole Stripper Relationship Specialty Start Date End Date Michelle Jane MD [address] [place] [address] PCP - General Internal Medicine 03/25/12 [address] [place] [address] Pharmacist Pharmacy 09/11/22 Manhole Stripper Relationship Specialty Start Date End Date Michelle Jane MD [address] [place] [address] PCP - General Internal Medicine 03/25/12 [address] [place] [address] Pharmacist Pharmacy 09/11/22 Manhole Stripper Relationship Specialty Start Date End Date Michelle Jane MD [address] [place] [address] PCP - General Internal Medicine 03/25/12 [address] [place] [address] Pharmacist Pharmacy 09/11/22 Manhole Stripper Relationship Specialty Start Date End Date Michelle Jane MD [address] [place] [address] PCP - General Internal Medicine 03/25/12 [address] [place] [address] Pharmacist Pharmacy 09/11/22 Manhole Stripper Relationship Specialty Start Date End Date Michelle Jane MD [address] [place] [address] PCP - General Internal Medicine 03/25/12 [place] [place] [address] [place] [address] Pharmacist Pharmacy 09/11/22 Manhole Stripper Relationship Specialty Start Date End Date Michelle Jane MD [address] [place] [address] PCP - General Internal Medicine 03/25/12 [address]adelinK[address]J[place] [address] [place] [address] Pharmacist Pharmacy 09/11/22 Manhole Stripper Relationship Specialty Start Date End Date Michelle Jane MD [address] [place] [address] PCP - General Internal Medicine 03/25/12 [address]inK[address] [address] [place] [address] Pharmacist Pharmacy 09/11/22 Manhole Stripper Relationship Specialty Start Date End Date Michelle Jane MD [address] [place] [address] PCP - General Internal Medicine 03/25/12 [address] [address] [place] [address] Pharmacist Pharmacy 09/11/22 Manhole Stripper Relationship Specialty Start Date End Date Michelle Jane MD [address] [place] [address] PCP - General Internal Medicine 03/25/12 DeshaunMadelin vergarailyJillian [address] [place] [address] Pharmacist Pharmacy 09/11/22 Manhole Stripper Relationship Specialty Start Date End Date Michelle Jane MD [address] [place] [address] PCP - General Internal Medicine 03/25/12 Deshaun, [place] [address] [place] [address] Pharmacist Pharmacy 09/11/22 Manhole Stripper Relationship Specialty Start Date End Date Michelle Jane MD [address] [place] [address] PCP - General Internal Medicine 03/25/12 [address]Kye [place]g[address] [place] [place] [address] Pharmacist Pharmacy 09/11/22 Manhole Stripper Relationship Specialty Start Date End Date Michelle Jane MD [address] [place] [address] PCP - General Internal Medicine 03/25/12 [address] [place] [address] Pharmacist Pharmacy 09/11/22 Manhole Stripper Relationship Specialty Start Date End Date Michelle Jane MD [address] [place] [address] PCP - General Internal Medicine 03/25/12 Kye MeadeJillian [place] [address] [place] [address] Pharmacist Pharmacy 09/11/22 Manhole Stripper Relationship Specialty Start Date End Date Michelle Jane MD [address] [place] [address] PCP - General Internal Medicine 03/25/12 [address] [place] [address] Pharmacist Pharmacy 09/11/22 [place] [address] [place] [address] Civil Structural Designer Cardiology 03/12/23 Manhole Stripper Relationship Specialty Start Date End Date Michelle Jane MD [address] [place], [place] [address]48161 PCP - General Internal Medicine 03/25/12 [address] [place] [address] Pharmacist Pharmacy 09/11/22 [place] [address] [place] [address] Civil Structural Designer Cardiology 03/12/23 Manhole Stripper Relationship Specialty Start Date End Date Michelle Jane MD [address] [place] [address] PCP - General Internal Medicine 03/25/12 [address] [place] [address] Pharmacist Pharmacy 09/11/22 [place] [address] [place] [address] Civil Structural Designer Cardiology 03/12/23 Manhole Stripper Relationship Specialty Start Date End Date Michelle Jane MD [address] [place] [address] PCP - General Internal Medicine 03/25/12 [address] [place] [address] [place] [address] Pharmacist Pharmacy 09/11/22 [place] [address] [place] [address] Civil Structural Designer Cardiology 03/12/23 Manhole Stripper Relationship Specialty Start Date End Date Michelle Jane MD [address] [place] [address] PCP - General Internal Medicine 03/25/12 [address] [place] [address] Pharmacist Pharmacy 09/11/22 [place] [address] [place] [id number] Civil Structural Designer Cardiology 03/12/23 Manhole Stripper Relationship Specialty Start Date End Date Michelle Jane MD [address] [place] [address] PCP - General Internal Medicine 03/25/12 [address] [place] [address] Pharmacist Pharmacy 09/11/22 03/28/23 [place] [address] [place] [address] Civil Structural Designer Cardiology 03/12/23 Manhole Stripper Relationship Specialty Start Date End Date Michelle Jane MD [address] [place] [address] PCP - General Internal Medicine 03/25/12 [place] [address] [place] [address] Civil Structural Designer Cardiology 03/12/23 Team Status: Active Member Role Status Dates Dr. Michelle Jane MD Family Provider Active Dr. Michelle Jane MD Primary Care Provider Active Team Status: Inactive Member Role Status Dates Dr. Michelle Jane MD Primary Care Provider Active Dr. Mike Piña MD Emergency Provider Active Manhole Stripper Relationship Specialty Start Date End Date Michelle Jane MD [address] [place], [place] [address]65681 PCP - General Internal Medicine 03/25/12 [place] [address] [place] [id number] Civil Structural Designer Cardiology 03/12/23 Manhole Stripper Relationship Specialty Start Date End Date Michelle Jane MD [address] [place] [address] PCP - General Internal Medicine 03/25/12 [place] [address] [place] [id number] Civil Structural Designer Cardiology 03/12/23 Manhole Stripper Relationship Specialty Start Date End Date Michelle Jane MD [address] [place], [place] 738581 PCP - General Internal Medicine 03/25/12 [place] [address] [place], [place] [id number] Civil Structural Designer Cardiology 03/12/23 Manhole Stripper Relationship Specialty Start Date End Date Michelle Jane MD [address] [place], [place] 169731 PCP - General Internal Medicine 03/25/12 [place] [address] [place] [address] Civil Structural Designer Cardiology 03/12/23 Manhole Stripper Relationship Specialty Start Date End Date Michelle Jane MD [address] [place] [address] PCP - General Internal Medicine 03/25/12 [place] [address] [place] [address] Civil Structural Designer Cardiology 03/12/23 Manhole Stripper Relationship Specialty Start Date End Date Michelle Jane MD [address] [place] [address] PCP - General Internal Medicine 03/25/12 [place] [address] [place] [address] Civil Structural Designer Cardiology 03/12/23 Manhole Stripper Relationship Specialty Start Date End Date Michelle Jane MD [address] [place], [place] 303731 PCP - General Internal Medicine 03/25/12 [place] [address] [place] [address] Civil Structural Designer Cardiology 03/12/23 Manhole Stripper Relationship Specialty Start Date End Date Michelle Jane MD [address] [place], [place] 677701 PCP - General Internal Medicine 03/25/12 [place] [address] [place] [address] Civil Structural Designer Cardiology 03/12/23 Manhole Stripper Relationship Specialty Start Date End Date Michelle Jane MD [address] [place] [address] PCP - General Internal Medicine 03/25/12 [place] [address] [place] [address] Civil Structural Designer Cardiology 03/12/23 Manhole Stripper Relationship Specialty Start Date End Date Michelle Jane MD [address] [place] [address] PCP - General Internal Medicine 03/25/12 [place] [address] [place] [address] Civil Structural Designer Cardiology 03/12/23 Manhole Stripper Relationship Specialty Start Date End Date Michelle Jane MD [address] [place], [place] 559101 PCP - General Internal Medicine 03/25/12 [place] [address] [place] [address] Civil Structural Designer Cardiology 03/12/23 Manhole Stripper Relationship Specialty Start Date End Date Michelle Jane MD [address] [place], [place] 968321 PCP - General Internal Medicine 03/25/12 [place] [address] [place] [address] Civil Structural Designer Cardiology 03/12/23 Manhole Stripper Relationship Specialty Start Date End Date Michelle Jane MD [address] [place] [address] PCP - General Internal Medicine 03/25/12 [place] [address] [place] [address] Civil Structural Designer Cardiology 03/12/23 Manhole Stripper Relationship Specialty Start Date End Date Michelle Jane MD [address] [place] [address] PCP - General Internal Medicine 03/25/12 [place] [address] [place] [address] Civil Structural Designer Cardiology 03/12/23 Manhole Stripper Relationship Specialty Start Date End Date Michelle Jane MD [address] [place], [place] 535431 PCP - General Internal Medicine 03/25/12 [place] [address] [place] [address] Civil Structural Designer Cardiology 03/12/23 Manhole Stripper Relationship Specialty Start Date End Date Michelle Jane MD [address] [place], [place] 030071 PCP - General Internal Medicine 03/25/12 [place] [address] [place] [address] Civil Structural Designer Cardiology 03/12/23 Manhole Stripper Relationship Specialty Start Date End Date Michelle Jane MD [address] [place] [address] PCP - General Internal Medicine 03/25/12 [place] [address] [place] [address] Civil Structural Designer Cardiology 03/12/23 Manhole Stripper Relationship Specialty Start Date End Date Michelle Jane MD [address] [place] [address] PCP - General Internal Medicine 03/25/12 [place] [address] [place] [address] Civil Structural Designer Cardiology 03/12/23 Manhole Stripper Relationship Specialty Start Date End Date Michelle Jane MD [address] [place], [place] 670431 PCP - General Internal Medicine 03/25/12 [place] [address] [place] [address] Civil Structural Designer Cardiology 03/12/23 Manhole Stripper Relationship Specialty Start Date End Date Michelle Jane MD [address] [place], [place] 823271 PCP - General Internal Medicine 03/25/12 [place] [address] [place] [address] Civil Structural Designer Cardiology 03/12/23 Manhole Stripper Relationship Specialty Start Date End Date Michelle Jane MD [address] [place] [address] PCP - General Internal Medicine 03/25/12 [place] [address] [place] [address] Civil Structural Designer Cardiology 03/12/23 Manhole Stripper Relationship Specialty Start Date End Date Michelle Jane MD [address] [place] [address] PCP - General Internal Medicine 03/25/12 [place] [address] [place] [address] Civil Structural Designer Cardiology 03/12/23 Manhole Stripper Relationship Specialty Start Date End Date Michelle Jane MD [address] [place], [place] 402451 PCP - General Internal Medicine 03/25/12 [place] [address] [place] [address] Civil Structural Designer Cardiology 03/12/23 Manhole Stripper Relationship Specialty Start Date End Date Michelle Jane MD [address] [place], [place] 161681 PCP - General Internal Medicine 03/25/12 [place] [address] [place] [address] Civil Structural Designer Cardiology 03/12/23 Manhole Stripper Relationship Specialty Start Date End Date Michelle Jane MD [address] [place], [place] 940581 PCP - General Internal Medicine 03/25/12 [place] [address] [place] [address] Civil Structural Designer Cardiology 03/12/23 Manhole Stripper Relationship Specialty Start Date End Date Michelle Jane MD [address] [place], [place] 037191 PCP - General Internal Medicine 03/25/12 [place] [address] [place] [address] Civil Structural Designer Cardiology 03/12/23 Manhole Stripper Relationship Specialty Start Date End Date Michelle Jane MD [address] [place], [place] 376461 PCP - General Internal Medicine 03/25/12 Kye Meade [facility] [address] [place], [place] 325721 Pharmacist Pharmacy 09/25/18 01/10/22 Manhole Stripper Relationship Specialty Start Date End Date Michelle Jane MD [address] [place], [place] 548041 PCP - General Internal Medicine 03/25/12 [place] [address] [place], [place] 3084336 Civil Structural Designer Cardiology 03/12/23 Manhole Stripper Relationship Specialty Start Date End Date Michelle Jane MD [address] [place], [place] 183431 PCP - General Internal Medicine 03/25/12 [place] [address] [place], [place] 1448536 Civil Structural Designer Cardiology 03/12/23 Britney Cervantes, DIGITAL STRATEGIST.CHILD & ADOLESCENT PSYCHIATRIST [address] [place] [address] Cotton Feeder Internal Medicine 06/01/24 Kaylee Vincent DIGITAL STRATEGIST.POLYSOMNOGRAPHY TECHNICIAN [address] [place], [place] 348921 [employer]eder Internal Medicine 06/01/24 Manhole Stripper Relationship Specialty Start Date End Date Michelle Jane MD [address] [place], [place] 422131 PCP - General Internal Medicine 03/25/12 [place] [address] [place] [address] Civil Structural Designer Cardiology 03/12/23 Britney Cervantes, DIGITAL STRATEGIST.CHILD & ADOLESCENT PSYCHIATRIST [address] [facility] [place] [address] Cotton Feeder Internal Medicine 06/01/24 Kaylee Vincent APRN.POLYSOMNOGRAPHY TECHNICIAN [address] [facility] [place] [place] [address] [employer] Internal Medicine 06/01/24 Manhole Stripper Relationship Specialty Start Date End Date Michelle Jane MD [address] [facility] [place] [place] [address] PCP - General Internal Medicine 03/25/12 [place] [address] [place], [place] 6409836 Civil Structural Designer Cardiology 03/12/23 Britney Cervantes, DIGITAL STRATEGIST.CHILD & ADOLESCENT PSYCHIATRIST [address] [facility] [place] [address] Cotton Feeder Internal Medicine 06/01/24 Kaylee Vincent APRN.POLYSOMNOGRAPHY TECHNICIAN [address] [facility] [place] [address] Cotton Feeder Internal Medicine 06/01/24 Manhole Stripper Relationship Specialty Start Date End Date Michelle Jane MD [address] [facility] [place] [address] PCP - General Internal Medicine 03/25/12 [place] [address] [place] [address] Civil Structural Designer Cardiology 03/12/23 Britney Cervantes APRN.CHILD & ADOLESCENT PSYCHIATRIST [address] [facility] [place] [address] [employer]eder Internal Medicine 06/01/24 Kaylee Vincent APRN.POLYSOMNOGRAPHY TECHNICIAN [address] [place] [address] [employer]eder Internal Medicine 06/01/24 Manhole Stripper Relationship Specialty Start Date End Date Michelle Jane MD [address] [place] [address] PCP - General Internal Medicine 03/25/12 [place] [address] [place], [place] 1333136 Civil Structural Designer Cardiology 03/12/23 Britney Cervantes DIGITAL STRATEGIST.CHILD & ADOLESCENT PSYCHIATRIST [address] [place] [address] [employer]eder Internal Medicine 06/01/24 Kalyee Vincent APRN.POLYSOMNOGRAPHY TECHNICIAN [address] [place] [address] [employer] Internal Medicine 06/01/24 Manhole Stripper Relationship Specialty Start Date End Date Michelle Jane MD [address] [place] [address] PCP - General Internal Medicine 03/25/12 [place] [address] [place] [address] Civil Structural Designer Cardiology 03/12/23 Britney Cervantes, DIGITAL STRATEGIST.CHILD & ADOLESCENT PSYCHIATRIST [address] [place] [address] [employer]eder Internal Medicine 06/01/24 Kaylee Vincent APRN.POLYSOMNOGRAPHY TECHNICIAN [address] [place] [address] [facility] Internal Medicine 06/01/24 Manhole Stripper Relationship Specialty Start Date End Date Michelle Jane MD [address] [place] [address] PCP - General Internal Medicine 03/25/12 [place] [address] [place], [place] 8966736 Civil Structural Designer Cardiology 03/12/23 Britney Cervantes APRN.CHILD & ADOLESCENT PSYCHIATRIST [address] [place] [address] [facility] Internal Medicine 06/01/24 Kaylee Vincent APRN.POLYSOMNOGRAPHY TECHNICIAN [address] [place] [address] [facility] Internal Medicine 06/01/24 Kye Meade, Formerly [facility] [address] [place] [address] Pharmacist Pharmacy 09/07/24 Manhole Stripper Relationship Specialty Start Date End Date Michelle Jane MD [address] [place] [address] PCP - General Internal Medicine 03/25/12 [place] [address] [place], [place] 4443736 Civil Structural Designer Cardiology 03/12/23 Britney Cervantes APRN.CHILD & ADOLESCENT PSYCHIATRIST [address] [place] [address] [employer] Internal Medicine 06/01/24 Kaylee Vincent DIGITAL STRATEGIST.POLYSOMNOGRAPHY TECHNICIAN [address] [place] [address] [employer] Internal Medicine 06/01/24 [address] [place] [address] Pharmacist Pharmacy 09/07/24 Manhole Stripper Relationship Specialty Start Date End Date Michelle Jane MD [address] [place] [address] PCP - General Internal Medicine 03/25/12 [place] [address] [place] [address] Civil Structural Designer Cardiology 03/12/23 Britney Cervantes, DIGITAL STRATEGIST.CHILD & ADOLESCENT PSYCHIATRIST [address] [place] [address] [employer] Internal Medicine 06/01/24 [address] [place] [address] [place] [address] Pharmacist Pharmacy 09/07/24 Manhole Stripper Relationship Specialty Start Date End Date Michelle Jane MD [address] [place] [address] PCP - General Internal Medicine 03/25/12 [place] [address] [place], [place] 2404336 Civil Structural Designer Cardiology 03/12/23 Britney Cervantes, MARGO.CHILD & ADOLESCENT PSYCHIATRIST [address] [place] [address] [employer] Internal Medicine 06/01/24 Kaylee Vincent APRN.POLYSOMNOGRAPHY TECHNICIAN [address] [place] [address] [employer] Internal Medicine 06/01/24 09/11/24 [address] [place] [address] Pharmacist Pharmacy 09/07/24 Manhole Stripper Relationship Specialty Start Date End Date Michelle Jane MD [address] [place] [address] PCP - General Internal Medicine 03/25/12 [place] [address] [place] [address] Civil Structural Designer Cardiology 03/12/23 Britney Cervantes, MARGO.CHILD & ADOLESCENT PSYCHIATRIST [address] [place] [address] [facility] Internal Medicine 06/01/24 [address] [place] [address] Pharmacist Pharmacy 09/07/24 Kaylee Vincent APRN.POLYSOMNOGRAPHY TECHNICIAN [address] [place] [address] [facility] Internal Medicine 09/15/24 Manhole Stripper Relationship Specialty Start Date End Date Michelle Jane MD [address] [place] [address] PCP - General Internal Medicine 03/25/12 [place] [address] [place] [address] Civil Structural Designer Cardiology 03/12/23 Britney Cervantes APRN.CHILD & ADOLESCENT PSYCHIATRIST [address] [place] [address] [employer] Internal Medicine 06/01/24 [address] [place] [place] [address] Pharmacist Pharmacy 09/07/24 Kaylee Vincent APRN.POLYSOMNOGRAPHY TECHNICIAN [address] [place] [address] [facility] Internal Medicine 09/15/24 Manhole Stripper Relationship Specialty Start Date End Date Michelle Jane MD [address] [place] [address] PCP - General Internal Medicine 03/25/12 [place] [address] [place] [address] Civil Structural Designer Cardiology 03/12/23 Britney Cervantes APRN.CHILD & ADOLESCENT PSYCHIATRIST [address] [place] [address] [facility] Internal Medicine 06/01/24 [address] [place] [place] [address] Pharmacist Pharmacy 09/07/24 Kaylee Vincent APRN.POLYSOMNOGRAPHY TECHNICIAN [address] [place] [address] [employer] Internal Medicine 09/15/24 Manhole Stripper Relationship Specialty Start Date End Date Michelle Jane MD [address] [place] [address] PCP - General Internal Medicine 03/25/12 [place] [address] [place], [place] 5801236 Civil Structural Designer Cardiology 03/12/23 Britney Cervantes APRN.CHILD & ADOLESCENT PSYCHIATRIST [address] [place] [address] [employer] Internal Medicine 06/01/24 [address] [place] [place] [address] [place] [address] Pharmacist Pharmacy 09/07/24 Kaylee Vincent APRN.POLYSOMNOGRAPHY TECHNICIAN [address] [place] [address] [employer] Internal Medicine 09/15/24 Manhole Stripper Relationship Specialty Start Date End Date Michelle Jane MD [address] [place] [address] PCP - General Internal Medicine 03/25/12 [place] [address] [place], [place] [address]198[address] Civil Structural Designer Cardiology 03/12/23 [address] [place] [place] [address] Pharmacist Pharmacy 09/07/24 Kaylee Vincent APRN.POLYSOMNOGRAPHY TECHNICIAN [address] [facility] [place] [address] [employer]eder Internal Medicine 09/15/24 Britney Cervantes APRN.CHILD & ADOLESCENT PSYCHIATRIST [address] [facility] [place] [address] [employer] Internal Medicine 11/11/24 Manhole Stripper Relationship Specialty Start Date End Date Michelle Jane MD [address] [place] [address] PCP - General Internal Medicine 03/25/12 [place] [address] [place] [address] Civil Structural Designer Cardiology 03/12/23 DeshaunKye vergara, Formerly [facility] [address] [place] [phone] Pharmacist Pharmacy 09/07/24 Kaylee Vincent APRN.POLYSOMNOGRAPHY TECHNICIAN [address] [facility] [place] [address] [employer] Internal Medicine 09/15/24 Britney Cervantes, DIGITAL STRATEGIST.CHILD & ADOLESCENT PSYCHIATRIST [address] [facility] [place] [address] [employer] Internal Medicine 11/11/24 Manhole Stripper Relationship Specialty Start Date End Date Michelle Jane MD [address] [place] [address] PCP - General Internal Medicine 03/25/12 [place] [address] [place] [address] Civil Structural Designer Cardiology 03/12/23 [address] [place] [phone] Pharmacist Pharmacy 09/07/24 Kaylee Vincent APRN.POLYSOMNOGRAPHY TECHNICIAN [address] [place] [address] [employer] Internal Medicine 09/15/24 Britney Cervantes APRN.CHILD & ADOLESCENT PSYCHIATRIST [address] [place] [address] [facility] Internal Medicine 11/11/24 Manhole Stripper Relationship Specialty Start Date End Date Michelle Jane MD [address] [place] [address] PCP - General Internal Medicine 03/25/12 [place] [address] [place] [address] Civil Structural Designer Cardiology 03/12/23 [address] [place] [address] Pharmacist Pharmacy 09/07/24 Kaylee Vincent APRN.POLYSOMNOGRAPHY TECHNICIAN [address] [place] [address] [employer] Internal Medicine 09/15/24 Britney Cervantes APRN.CHILD & ADOLESCENT PSYCHIATRIST [address] [place] [address] [employer] Internal Medicine 5/21/25 Goals (unrecognized section and content) Goals may be documented in a n alternate sectionGoals may be documented in an alternate sectionGoals may be documented in an alternate sectionGoals may be documented in an alternate sectionGoals may be documented in an alternate sectionGoals may be documented in an alternate sectionGoals may be documented in an alternate sectionGoals may be documented in an alternate sectionGoals may be documented in an alternate section Scheduled Active and Recently Administ ered Medications (unrecognized section and content) Medication Order 09/25/2021 09/26/2021 09/27/2021 atorvastatin (LIPITOR) tablet 20 mg 20 mg, Oral, Nightly, First dose on Sat09/22/21 at 2100 2041 (Given - Provider: Conrad Adair RN) 2038 (Given - Provider: Arelis Kraus, MARIEL) insulin glargine (LANTUS) injection 22 Units (CANCELED) 22 Units, Subcutaneous, 2 times daily, First dose (after last modification) on Sat09/25/21 at 0900, If patient NPO and BG LESS than 100 before procedure, administer half (rounded up to nearest unit) of the glargine insulin (LANTUS) dose; if BG is GREATER than 100, administer the full dose unless otherwise instructed by ordering physician Do not mix with other insulins in a syringe. Do NOT hold basal insulin without notifying physician 0842 (Given - Provider: Leonie Yarbrough RN) insulin glargine (LANTUS) injection 26 Units 26 Units, Subcutaneous, 2 times daily, First dose (after last modification) on Sat09/25/21 at 2100, If patient NPO and BG LESS than 100 before procedure, administer half (rounded up to nearest unit) of the glargine insulin (LANTUS) dose; if BG is GREATER than 100, administer the full dose unless otherwise instructed by ordering physician Do not mix with other insulins in a syringe. Do NOT hold basal insulin without notifying physician 2042 (Given - Provider: Conrad Adair RN) 0858 (Given - Provider: Jessica Cornejo RN)2041 (Given - Provider: Arelis Kraus, MARIEL) 0830 (Given - Provider: Aylin Jorgensen RN) insulin lispro (AdmeLOG,HumaLOG) injection 0-15 Units 0-15 Units, Subcutaneous, At bedtime, First dose on Sat09/22/21 at 2100, For Nightly Insulin Dose Coverage, use: CORRECTIVE (Only) for BG greater than 300, Nightly CORRECTIVE Dose Method: Specific Corrective Dose, Nightly Specific CORRECTIVE dose (units of insulin): 2, For Downtime Calculator, use: Insulin SC NIGHTtime 2043 (Given - Provider: Conrad Adair, MARIEL) 2038 (Given - Provider: Arelis Kraus RN) insulin lispro (AdmeLOG,HumaLOG) injection 0-30 Units (CANCELED) 0-30 Units, Subcutaneous, 3 times daily before meals, First dose (after last modification) on Sat09/25/21 at 1130, Dose should be given 10-15 minutes before a meal. If poor oral intake, nausea or blood glucose value < 80 before meal, give of the dose (rounded up to nearest unit) immediately after meal completed. If patient skipping meal, hold base prandial dose and continue to use corrective insulin as ordered. Once diet resumed, total base prandial + corrective doses may be given., Prandial Insulin Dosing Method: Specific Prandial Doses, Specific Prandial Dose (units of Insulin): 10, Corrective Insulin Regimen (select desired scale to cover BG result): Normal Sensitivity Scale, For Downtime Calculator, use: Insulin SC MEALtime PREprandial 1153 (Given - Provider: Leonie Yarbrough RN)1652 (Given - Provider: Conrad Adair RN) 0857 (Given - Provider: Jessica Cornejo RN)1157 (Given - Provider: Deandra Velasquez RN) insulin lispro (AdmeLOG,HumaLOG) injection 0-30 Units 0-30 Units, Subcutaneous, 3 times daily before meals, First dose (after last modification) on Sat09/26/21 at 1630, Dose should be given 10-15 minutes before a meal. If poor oral intake, nausea or blood glucose value < 80 before meal, give of the dose (rounded up to nearest unit) immediately after meal completed. If patient skipping meal, hold base prandial dose and continue to use corrective insulin as ordered. Once diet resumed, total base prandial + corrective doses may be given., Prandial Insulin Dosing Method: Specific Prandial Doses, Specific Prandial Dose (units of Insulin): 10, Corrective Insulin Regimen (select desired scale to cover BG result): Insulin RESISTANT Scale, For Downtime Calculator, use: Insulin SC MEALtime PREprandial 1620 (Given - Provider: Arelis Kraus, RN) 0831 (Given - Provider: Aylin Jorgensen, RN)1159 (Given - Provider: Aylin Jorgensen, MARIEL) insulin lispro (AdmeLOG,HumaLOG) injection 22 Units (COMPLETED) 22 Units, Subcutaneous, Once, On Sat09/25/21 at 0900, For 1 dose 0809 (Given - Provider: Leonie Yarbrough RN) insulin lispro (AdmeLOG,HumaLOG) injection 8 Units (COMPLETED) 8 Units, Subcutaneous, Once, On Sat09/25/21 at 2330, For 1 dose, Recheck blood sugar in 2 hrs. 2240 (Given - Provider: Conrad Adair RN) insulin lispro (AdmeLOG,HumaLOG) injection 8 Units (COMPLETED) 8 Units, Subcutaneous, Once, On Sat09/26/21 at 2345, For 1 dose, Give 8 units recheck in 2 hrs. 2256 (Given - Provider: Arelis Kraus, MARIEL - Comment: blood sugar recheck 362) lidocaine patch 1 patch 1 patch, Transdermal, Administer over 12 Hours, Daily, First dose on Sat09/23/21 at 1045, Apply to back for 12 hours, then remove patch for 12 hours. 0900 (Hold - Provider: Leonie Yarbrough RN - Reason: Patient/family refused) 0900 (Not Given - Provider: Deandra Velasquez, MARIEL - Reason: Patient/family refused) 0900 (Not Given - Provider: Aylin Jorgensen RN - Reason: Patient/family refused) lisinopriL (PRINIVIL,ZESTRIL) tablet 10 mg 10 mg, Oral, Daily with lunch, First dose on Sat09/22/21 at 1200, Hold for SBP < 110 1153 (Given - Provider: Leonie Yarbrough RN) 1204 (Given - Provider: Deandra Velasquez, MARIEL) 1158 (Given - Provider: Aylin Jorgensen, MARIEL) lurasidone (LATUDA) tablet 40 mg 40 mg, Oral, Daily with dinner, First dose on Sat09/23/21 at 1700, Take with food. Administer with a meal containing at least 350 calories. 1654 (Given - Provider: Conrad Adair RN) 1622 (Given - Provider: Arelis Kraus, RN) metFORMIN (GLUCOPHAGE) tablet 1,000 mg 1,000 mg, Oral, 2 times daily with meals, First dose on Sat09/22/21 at 0800, Note: Guidelines recommend that metformin be held for 48 hours after use of iodinated contrast media (IVP Dye) in patients with an eGFR less than 30 ml/min/1.73m2, with a history of hepatic disease, alcoholism or heart failure, or in patients who will receive intra-arterial iodinated contrast. 0807 (Given - Provider: Leonie Yarbrough RN)1654 (Given - Provider: Conrad Adair RN) 0859 (Given - Provider: Jessica Cornejo RN)1622 (Given - Provider: Arelis Kraus, MARIEL) 0831 (Given - Provider: Aylin Jorgensen, MARIEL) nicotine (NICODERM CQ) 21 mg/24 hr 1 patch 1 patch, Transdermal, Administer over 24 Hours, Daily, First dose on Sat09/22/21 at 0900, U/P Listed Hazardous Drug. Waste Must Be Disposed in [employer] Waste Container 0859 (Patch Removed - Provider: Leonie Yarbrough RN)0900 (Hold - Provider: Leonie Yarbrough RN - Reason: Patient/family refused) 1232 (Patch Applied - Provider: Deandra Velasquez RN - Comment: per pt request) 0831 (Patch Removed - Provider: Aylin Jorgensen, MARIEL)0835 (Patch Applied - Provider: Aylin Jorgensen RN)1519 (Due: Patch Removed - Provider: Discharge Provider, Automatic - Comment: Time automatically adjusted from order being discontinued) OXcarbazepine (TRILEPTAL) tablet 300 mg 300 mg, Oral, 2 times daily, First dose (after last modification) on Sat09/24/21 at 2100, CATEGORY C HAZARDOUS DRUG use safe handling precautions. Use reference link to view PPE guidelines. Minimize crushing/splitting only to situations where clinically necessary. 08 (Given - Provider: Leonie Worthington V RN)2040 (Given - Provider: Conrad Adair RN) 0917 (Given - Provider: Deandra Velasquez, MARIEL)2038 (Given - Provider: Arelis Kraus, RN) 0831 (Given - Provider: Aylin Jorgensen, MARIEL) traZODone (DESYREL) tablet 100 mg 100 mg, Oral, Nightly, First dose (after last modification) on Sat09/23/21 at 2100 2041 (Given - Provider: Conrad Adair, MARIEL) 2038 (Given - Provider: Arelis Kraus, MARIEL) PRN Medication Order 09/25/2021 09/26/2021 09/27/2021 acetaminophen (TYLENOL) tablet 650 mg 650 mg, Oral, Every 4 hours PRN, mild pain, Starting on Sat09/22/21 at 0646 aluminum-magnesium hydroxide-simethicone (MAALOX PLUS) 200-200-20 mg/5 mL suspension 30 mL 30 mL, Oral, Every 4 hours PRN, indigestion, Starting on Sat09/22/21 at 0646 1510 (Given - Provider: Deandra Velasquez, MARIEL) diphenhydrAMINE (BENADRYL) injection 50 mg 50 mg, Intramuscular, Once as needed, acute dystonia, Starting on Sat09/22/21 at 0646, For 1 dose, [] and notify the physician. For IV administration, give at a rate less than or equal to 25 mg/min hydrOXYzine (ATARAX) tablet 50 mg 50 mg, Oral, Every 6 hours PRN, anxiety, Starting on Sat09/22/21 at 0646 magnesium hydroxide (MOM) 400 mg/5 mL suspension 2,400 mg 2,400 mg (30 mL), Oral, Daily PRN, constipation, constipation, Starting on Sat09/22/21 at 0646 nicotine polacrilex (NICORETTE) gum 2-4 mg 2-4 mg, Mouth/Throat, Every 1 hour prn, smoking cessation, Starting on Sat09/22/21 at 0647, If the patient reports smoking within 30 minutes of waking, give 4mg. If the patient reports smoking after 30 minutes of waking, give 2mg. If the patient reports having 25 or more cigarettes per day, give 4mg. If the patient reports having less than 25 cigarettes per day, give 2mg. May use to supplement nicotine patch therapy. Instruct patient to chew 1 piece of gum at a time. Chew slowly until it tingles, then place between cheek and gums. Instruct patient to repeat process until most of tingle is gone. Each piece of gum should last about 30 minutes. Avoid food or drink 15 minutes before, during, or after using gum. 1730 (Given - Provider: Conrad Adair RN) traZODone (DESYREL) tablet 50 mg 50 mg, Oral, Nightly PRN, sleep, Starting on 09/23/21 at 1800 ziprasidone (GEODON) injection 20 mg 20 mg, Intramuscular, Every 4 hours PRN, agitation, Starting on 09/22/21 at 0645, May repeat once in four hours if agitation continues. Maximum of 2 doses in 24 hours. Contact physician if 2 doses are given CATEGORY B HAZARDOUS DRUG use safe handling precautions. Use reference link to view PPE guidelines.
Nursing to reconstitute each vial with 1.2 mL sterile water for injection. Final concentration = 20 mg/mL. FOR IM USE ONLY. May cause prolongation of QT interval. FOR RECORDS PERTAINING TO PATIENTS WHO ARE OR HAVE BEEN ENROLLED IN A CHEMICAL DEPENDENCY/SUBSTANCEABUSE PROGRAM, SOME INFORMATION MAY BE OMITTED. This clinical summary was aggregated from multiple sources. Caution should be exercised in using it in the provision of clinical care. This summary normalizes information from multiple sources, and as a consequence, information in this document may materially change the coding, format and clinical context of patient data. In addition, data may be omitted in some cases. CLINICAL DECISIONS SHOULD BE BASED ON THE PRIMARY CLINICAL RECORDS. [employer] provides no warranty or guarantee of the accuracy or completeness of information in this document.
== END 2025-06-03 16:37 | disposition home or self-care (01) ==
PROVIDERS: Emergency Provider Student in an Organized Health Care Education/Training Program; PCP Internal Medicine; Visit Provider Student in an Organized Health Care Education/Training Program
DX: S09.90XA Unspecified injury of head, initial encounter (principal); E11.9 Type 2 diabetes mellitus without complications; Z79.4 Long term (current) use of insulin; S50.00XA Contusion of unspecified elbow, initial encounter; W00.0XXA Fall on same level due to ice and snow, initial encounter; M54.2 Cervicalgia; I10 Essential (primary) hypertension; F17.210 Nicotine dependence, cigarettes, uncomplicated; Z79.84 Long term (current) use of oral hypoglycemic drugs; Z79.85 Long-term (current) use of injectable non-insulin antidiabetic drugs; Z79.899 Other long term (current) drug therapy
CPT/HCPCS: 70450; 71046; 72125; 73080; 96372; 99282